=== PATIENT | female | born 1950 | race Caucasian/White ===

== ENCOUNTER 2023-10-28 12:17 | Outpatient (OUT) | payer MEDICARE, OTHER, SELFPAY ==
--- NOTE | 2023-10-28 14:06 | P.CN_ITS ---
Consult Note: HPI Data of Consult Patient: new to practice Consult date: 10/28/23 Requesting Physician: Ru Ferrera MD Primary Care Provider: PARRIS ROMAN Consult Narrative Reason for consult: neck pain, bilateral arm weakness, low back pain, right leg pain Narrative: 72yof who presents for evaluation. longstanding neck, bilateral arm, low back, leg symptoms. history of cervical and lumbar surgeries. no recent advanced imaging of cervical spine. lumbar spine mri from 2+ years ago shows multilevel stenosis throughout lumbar spine. has engaged in a series of provider directed home exercises for >6 weeks, without any lasting benefit. medications currently controlled by hospice team - uses tizanidine, morphine 15mg bid, percocet 10mg q4h. she and family state that she is often quite lethargic. hx of copd, on home oxygen. cc:: CC: Ru Ferrera MD Review of Systems ROS Status of ROS 10 or more systems reviewed and unremark able except as noted in history and below Meds Home Medications and Allergies Home Medications ?Medication ?Instructions ?Recorded ?Confirmed ?Type buprenorphine 5 mcg/hour weekly 1 patch transdermal Q7D #4 ea 10/28/23 Rx transdermal patch (Butrans) Exam Narrative Exam Narrative: Psych-alert and oriented x 3.? Attentive and appropriate, constitutionally normal, displays normal mood and affect per situation.? There are no obvious deficits in memory, reasoning, or intellect.? Skin-no obvious rashes, bruising, or erythema noted to the patient's area of pain.? Extremities-upper extremities are warm with minimal edema and palpable pulses. Cervical- tenderness to palpation noted in the cervical spine and paraspinal musculature.? Pain is elicited with flexion, extension, and lateral rotation of the cervical spine.? Range of motion is diminished due to pain. Facet loading maneuvers are positive.? Strength-unremarkable and within normal limits with the exception to the bilateral biceps. Sensory-no notable sensory deficits in the bilateral upper extremities to touch or pinprick with the exception to decreased sensation to the bilateral C4, 5, 6 dermatomal distribution.? Lumbar-tenderness to palpation noted in the lumbar spine and paraspinal musculature. Pain is elicited with flexion, extension, and lateral rotation of the lumbar spine. Range of motion is diminished with these motions. Facet loading maneuvers are positive. Strength-noted to be unremarkable with the exception of decreased strength rated at 4 out of 5 in right quadriceps femoris, anterior tibialis. Sensory-no notable sensory deficits in the bilateral lower extremities to touch or pinprick in all dermatomal distributions with the exception to decreased sensation to the right L4, 5 dermatomal distribution Coordination remains intact.? Gait remains non-antalgic. Assessment and Plan Assessment and Plan (1) Lumbar stenosis with neurogenic claudication: (2) Lumbar postlaminectomy syndrome: (3) Cervical stenosis of spinal canal: (4) Cervical postlaminectomy syndrome: Plan 72yof who presents for evaluation. failed conservative measures, as noted. imaging reviewed, as noted. given longstanding symptoms and history, would like her to undergo cervical and lumbar mri without contrast. she is in agreement. medications reviewed. lengthy discussion about options and desire to wean off opioids as much as possible, given comorbidities and drowsiness. at this point, will have her trail butrans patch 5mcg/hr. discussed that she could start we aning 1/2 tablet per day and assess how she feels after a week. if continues to feel ok, would wean by another 1/2 tablet per week. she expressed understanding. follow up after mri.
== END 2023-10-28 12:18 | disposition home or self-care (01) ==
PROVIDERS: PCP Family Medicine; Visit Provider Anesthesiology
DX: M48.062 Spinal stenosis, lumbar region with neurogenic claudication (principal); M96.1 Postlaminectomy syndrome, not elsewhere classified; M48.02 Spinal stenosis, cervical region
CPT/HCPCS: G0463

== ENCOUNTER 2023-11-01 08:31 | Outpatient (OUT) | payer MEDICARE, OTHER, SELFPAY ==
--- NOTE | 2023-11-01 08:33 | MR_ITS ---
[place] [id number] Patient Name: ATTILA PACHECO MRN: [facility]:[id number] date: 1950 Sex: F Assigned Patient Location: MRI Current Patient Location: Accession/Order Number: [id number] Exam Date: 11/01/2023 08:53 Report Date: 11/04/2023 10:09 At the request of: MAURICIO SINCLAIR Procedure: MR cervical spine wo con EXAMINATION: MR cervical spine wo con HISTORY: Cervical Stenosis ; chronic cervical pain, bilateral arm weakness COMPARISON: No relevant comparison available. TECHNIQUE: A variety of imaging planes and parameters were utilized for visualization of suspected pathology without and/or with intravenous Dotarem contrast based on examination type. FINDINGS: CRANIOCERVICAL AREA: Normal foramen magnum with no Chiari malformation. PARASPINAL AREA: Normal with no visible mass. BONES: Anterior mechanical fusion C4-5-6 vertebral. Small spinous process versus resection at these levels. Mild grade 1 anterolisthesis of C6 on C7. CORD: Cord compression at several levels. No abnormal signal within the cord. CERVICAL DISC LEVELS: C2-C3: Moderate degenerative disc disease is present without visible neural impingement. C3-C4: Moderate-marked central canal and moderate bilateral foraminal narrowing. Prominent posterior disc bulging and moderate disc height reduction. Mild degenerative facet arthropathy. C4-C5: Marked central canal narrowing posterior to C4 with flattening of the spinal cord to 5 mm. Moderate foramen narrowing bilaterally. Mechanical fusion of vertebral bodies and near complete loss of disc space. C5-C6: Mild central canal and bilateral foramen narrowing. Mechanical fusion of vertebral bodies. Intervertebral disc spacer. C6-C7: Mild central canal and moderate bilateral foramen narrowing. Grade 1 anterolisthesis of C6 on 7 with moderate disc space narrowing and mild degenerative facet arthropathy bilaterally. C7-T1:. No significant central canal narrowing. Moderate right foramen narrowing. Minimal degenerative disc disease. Moderate degenerative facet arthropathy. MR/MR cervical spine wo con IMPRESSION: 1. Mechanical fusion and suspected anterior vertebral disc spacers at C4-5-6. 2. Grade 1 anterolisthesis of C6 on 7. 3. Multilevel central canal and foraminal narrowing as detailed above. 4. No prior studies or reports for comparison. Electronically authenticated by: STANLEY ALONZO Date: 11/04/2023 10:09
--- NOTE | 2023-11-01 08:33 | MR_ITS ---
[facility] [place] [id number] Patient Name: ATTILA APCHECO MRN: [facility]:[id number] date: 1950 Sex: F Assigned Patient Location: MRI Current Patient Location: MRI Accession/Order Number: [id number] Exam Date: 11/01/2023 08:53 Report Date: 11/04/2023 10:48 At the request of: MAURICIO SINCLAIR Procedure: MR lumbar spine wo con EXAMINATION: MR lumbar spine wo con HISTORY: Lumbar Stenosis COMPARISON: MRI L-spine 09/28/2021 TECHNIQUE: A variety of imaging planes and parameters were utilized for visualization of suspected pathology. FINDINGS: For the purposes of numbering, sagittal T2 image # 8 extends from the T9-10 vertebral body superiorly to the S2-3 level inferiorly. PARASPINAL AREA: Normal with no visible mass. BONES: [For right laminectomy is suspected. CORD/CAUDA EQUINA: Normal caliber, contour, and signal intensity. DISC LEVELS: 12-L1: Early degenerative disc disease is present without focal protrusion or neural impingement. L1-L2: Mild central canal and bilateral foramen narrowing. Mild diffuse disc bulging and moderate disc height reduction. L2-L3: Moderate central canal and mild bilateral foramen narrowing. Moderate diffuse disc bulging with mild disc at reduction. Mild degenerative facet arthropathy, right greater than left. L3-L4: Mild central canal and right neural foramen narrowing. Moderate left foramen narrowing. Mild diffuse disc bulging without disc at reduction. Mild degenerative facet arthropathy. L4-L5: Moderate right foramen narrowing without significant central canal or left foramen narrowing. Mild diffuse disc bulging without disc at reduction. Moderate degenerative facet arthropathy bilaterally. Suspect right laminectomy. L5-S1: Early degenerative disc disease is present without focal protrusion or neural impingement. MR/MR lumbar spine wo con IMPRESSION: 1. Multilevel mild-moderate degenerative changes, most notable at L2-3 and L3-4; stable to minimally progressed. Electronically authenticated by: STANLEY ALONZO Date: 11/04/2023 10:48
== END 2023-11-01 08:32 | disposition home or self-care (01) ==
LOC: MRI 08:31
PROVIDERS: PCP Family Medicine; Visit Provider Anesthesiology
DX: M48.02 Spinal stenosis, cervical region (principal); M48.062 Spinal stenosis, lumbar region with neurogenic claudication; M51.36 Other intervertebral disc degeneration, lumbar region; M43.22 Fusion of spine, cervical region
CPT/HCPCS: 72141; 72148

== ENCOUNTER 2023-11-04 12:22 | Outpatient (OUT) | payer MEDICARE, OTHER, SELFPAY ==
--- NOTE | 2023-11-04 13:22 | PM.CN ---
Consult Note: HPI Data of Consult Patient: known to practice within the last 3 years Consult date: 11/04/23 Requesting Physician: Ru Ferrera MD Primary Care Provider: PARRIS ROMAN Consult Narrative Reason for consult: neck, bilateral arm, low back, bilateral leg pain Narrative: 73yof who presents for assessment. persistent low back, leg, neck, bilateral arm pain. imaging reviewed. cervical mri with severe stenosis and compression at several levels, worst at c4-5. lumbar mri with more moderate degnerative changes, from l2 to l5. multiple levels of stenosis seen throughout lumbar spine. has continued in a provider directed home exercise program >6 weeks, without benefit. continues with percocet, morphine, has not started butrans. cc:: CC: Ru Ferrera MD Review of Systems ROS Status of ROS 10 or more systems reviewed and unremarkable except as noted in history and below [facility] Medical History (Updated 10/28/23 @ 15:19 by Marivel Ramirez RN) Cervical vertebral fusion ?M43.22 - Fusion of spine, cervical region (ICD-10) COPD (chronic obstructive pulmonary disease) ?J44.9 - Chronic obstructive pulmonary disease, unspecified (ICD-10) Stroke ?I63.9 - Cerebral infarction, unspecified (ICD-10) Vertigo ?R42 - Dizziness and giddiness (ICD-10) Surgical History History of lumbar surgery ?Z98.890 - Other specified postprocedural states (ICD-10) History of bladder suspension procedure ?Z98.890 - Other specified postprocedural states (ICD-10) ?Z87.448 - Personal history of other diseases of urinary system (ICD-10) H/O dilation of urethra ?Z98.890 - Other specified postprocedural states (ICD-10) History of colonoscopy ?Z98.890 - Other specified postprocedural states (ICD-10) History of laparoscopy ?Z98.890 - Other specified postprocedural states (ICD-10) History of cardiac cath ?Z98.890 - Other specified postprocedural states (ICD-10) History of hand surgery ?Z98.890 - Other specified postprocedural states (ICD-10) H/O oophorectomy History of hysterectomy ?Z90.710 - Acquired absence of both cervix and uterus (ICD-10) Hx of cholecystectomy ?Z90.49 - Acquired absence of other specified parts of digestive tract (ICD-10) Meds Home Medications and Allergies Home Medications ?Medication ?Instructions ?Recorded ?Confirmed ?Type albuterol sulfate 90 mcg/actuation 2 inh inhalation Q8H PRN shortness 10/28/23 10/28/23 History aerosol inhaler of breath or wheezing aripiprazole 5 mg tablet (Abilify) 5 mg PO DAILY 10/28/23 10/28/23 History buprenorphine 5 mcg/hour weekly 1 patch transdermal Q7D #4 ea 10/28/23 Rx transdermal patch (Butrans) cholecalciferol (vitamin D3) 50 10,000 unit PO DAILY 10/28/23 10/28/23 History mcg (2,000 unit) tablet (Vitamin D3) clopidogrel 75 mg tablet (Plavix) 75 mg PO DAILY 10/28/23 10/28/23 History fenofibrate micronized 134 mg 134 mg PO DAILY 10/28/23 10/28/23 History capsule fluoxetine 40 mg capsule (Prozac) 40 mg PO DAILY 10/28/23 10/28/23 History fluticasone furoate 100 1 inh inhalation DAILY 10/28/23 10/28/23 History mcg-vilanterol 25 mcg/dose inhalation powder (Breo Ellipta) ipratropium 18 mcg-albuterol 103 1 spray inhalation PRN shortness 10/28/23 History mcg/actuation aerosol inhaler of breath morphine 15 mg tablet,extended 15 mg PO Q12H 10/28/23 10/28/23 History release (MS Contin) multivitamin-ferrous 1 tab PO DAILY 10/28/23 10/28/23 History fumarate-folic acid 18 mg-400 mcg tablet (Centrum Women) omeprazole 20 mg capsule,delayed 20 mg PO DAILY 10/28/23 10/28/23 History release oxycodone-acetaminophen 10 mg-325 1 tab PO Q4H 10/28/23 10/28/23 History mg tablet (Percocet) raloxifene 60 mg tablet (Evista) 60 mg PO DAILY 10/28/23 10/28/23 History sennosides 8.6 mg tablet (Senokot) 8.6 mg PO DAILY 10/28/23 10/28/23 History simvastatin 40 mg tablet 40 mg PO DAILY 10/28/23 10/28/23 History tizanidine 2 mg capsule 2 mg PO BID PRN muscle spasticity 10/28/23 10/28/23 History Allergies Allergy/AdvReac Type Severity Reaction Status Date / Time No Known Drug Allergies Allergy Verified 10/28/23 14:56 Exam Narrative Exam Narrative: Psych-alert and oriented x 3.? Attentive and appropriate, constitutionally normal, displays normal mood and affect per situation.? There are no obvious deficits in memory, reasoning, or intellect.? Skin-no obvious rashes, bruising, or erythema noted to the patient's area of pain.? Extremities-upper extremities are warm with minimal edema and palpable pulses. Cervical- tenderness to palpation noted in the cervical spine and paraspinal musculature.? Pain is elicited with flexion, extension, and lateral rotation of the cervical spine.? Range of motion is diminished due to pain. Facet loading maneuvers are positive. Strength-unremarkable and within normal limits with the exception to the bilateral biceps, triceps. Sensory-no notable sensory deficits in the bilateral upper extremities to touch or pinprick with the exception to decreased sensation to the bilateral c4, 5, 6 dermatomal distribution.? Lumbar-tenderness to palpation noted in the lumbar spine and paraspinal musculature. Pain is not elicited with flexion, extension, and lateral rotation of the lumbar spine. Range of motion is not diminished with these motions. Facet loading maneuvers are negative.? Strength-noted to be unremarkable with the exception of decreased strength rated at 4 out of 5 in bilateral quadriceps femoris, anterior tibialis. Sensory-no notable sensory deficits in the bilateral lower extremities to touch or pinprick in all dermatomal distributions with the exception to decreased sensation to the bilateral L4, 5 dermatomal distribution Coordination remains intact.? Gait remains non-antalgic.? Assessment and Plan Assessment and Plan (1) Cervical postlaminectomy syndrome: (2) Cervical stenosis of spinal canal: (3) Lumbar postlaminectomy syndrome: (4) Lumbar stenosis with neurogenic claudication: Plan 73yof who presents for assessment. failed conservative measures, as noted. imaging reviewed, as noted. given symptoms and imaging, prudent to attempt bilateral c4-5 tfesi under fluoroscopic guidance. will utilize ivcs given extreme anxiety. for low back and leg symptoms, will attempt bilateral l3-4 tfesi under fluoroscopic guidance. will utilize ivcs given extreme anxiety. she is in agreement. meds reviewed. had extensive conversation about butrans. she will try this and scale back 1/2 tablet percocet. prescribed narcan. uds reviewed. also refilled morphine 15mg bid. follow up after procedure.
== END 2023-11-04 12:23 | disposition home or self-care (01) ==
PROVIDERS: PCP Family Medicine; Visit Provider Anesthesiology
DX: M96.1 Postlaminectomy syndrome, not elsewhere classified (principal); M48.02 Spinal stenosis, cervical region; M48.062 Spinal stenosis, lumbar region with neurogenic claudication
CPT/HCPCS: G0463

== ENCOUNTER 2023-11-18 08:28 | Day surgery (SDC) | payer MEDICARE, OTHER, SELFPAY ==
[2023-11-18 08:58] VITALS: BP 161/85; PULSE 93; TEMP 36.2; O2SAT 95
[2023-11-18] MEDS: 0.9 % SODIUM CHLORIDE 500 ML IV (09:11)
[2023-11-18] MEDS: BUPIVACAINE HCL 0.25% PF 25 MG/10 ML VIAL INJ (09:43)
[2023-11-18] MEDS: DEXAMETHASONE SOD PHOS 10 MG/ML VIAL INJ (09:44)
[2023-11-18] MEDS: LIDOCAINE HCL 2% 400 MG/20 ML MDV 5 ML INJ (09:44)
[2023-11-18] MEDS: IOHEXOL 240 MG/ML - 10 ML VIAL INJ (09:44)
--- NOTE | 2023-11-18 09:48 | W.PM.PROCNOT ---
Date of procedure: 11/18/23 Pre-op diagnosis: Pain due to cervical radiculopathy Post-op diagnosis: same as pre-op Procedure: Procedure: Bilateral C4-5 transforaminal epidural steroid injection Medications: Bupivacaine 0.25% 1cc, lidocaine 2% 1cc, dexamethasone 10mg The patient was seen and examined in the preoperative holding area.? Informed consent was obtained and placed on the chart.? Patient was brought to the medical procedure unit and placed in the prone position where a timeout was completed verifying the correct patient, procedure site, position, and planned special equipment using sterile aseptic technique.? Under direct fluoroscopic visualization a 25-gauge Quincke tipped spinal needle was advanced at level left C4-5 to the designated neural foramen where contrast dye was injected to show adequate spread.? There was no evidence of vascular or adverse uptake.? Epidural spread was appreciated.? The above-mentioned injectate was then placed in a 1.5 mL aliquot preceded by negative aspiration.? The needle was removed. The same procedure, at the same level, was completed on the opposite side. ? Patient was taken to the postprocedural recovery area and monitored for an appropriate length of time before found suitable for discharge in the accompaniment of a responsible adult. Anesthesia: MAC Surgeon: Ru Ferrera Pathology: none sent Condition: stable Disposition: no change
[2023-11-18 09:49] VITALS: BP 125/91; PULSE 78; TEMP 36.2; O2SAT 100
[2023-11-18 10:01] VITALS: BP 119/67; PULSE 77; O2SAT 99
== END 2023-11-18 10:20 | disposition home or self-care (01) ==
PROVIDERS: PCP Family Medicine; Visit Provider Anesthesiology
DX: M54.12 Radiculopathy, cervical region (principal)
CPT/HCPCS: 64479; J0665; J1100; J2704; Q9966

== ENCOUNTER 2023-12-02 07:25 | Day surgery (SDC) | payer MEDICARE, OTHER, SELFPAY ==
--- OUTSIDE RECORDS SUMMARY | 2023-12-02 07:37 | XMS_ITS | CCD ---
Author Organization [facility] Team Providers Care Merchandise Flow Team Leader Name Role Phone REQUEST, NONE LISTED Admitting Unavailable REQUEST, NONE LISTED Attending Unavailable REQUEST, NONE LISTED Consulting Unavailable REQUEST, NONE LISTED Attending Unavailable REQUEST, NONE LISTED Consulting Unavailable REQUEST, NONE LISTED Admitting Unavailable THOMASPARRIS ANN Admitting Unavailable ALTAGRACIA VARGAS V Consulting Unavailable THOMASPARRIS Attending Unavailable THOMASPARRIS ANN Consulting Unavailable Thomas, Parris Unavailable ThomasDO Parris ann. Primary Care Provider DO Parris Guzman. Attending Provider [phone] DO Sangeetha Mares Attending Provider [phone] ThomasDO Parris ann. Primary Care Provider DO Parris Guzman. Attending Provider PARRIS GUZMAN Primary Care Physician Jovana Armstrong Unavailable Unavailable Charlotte SMITH Unavailable Chaparro Heck Unavailable Zuleyka Ross Unavailable MD Cheko Rolon Jr Emergency Provider ThomasDO Parris ann. Primary Care Provider CYNDY Juarez Emergency Provider DO Parris Guzman Attending Provider Dr. Gaston Alvarez II Attending Unavailable Thomas, Dr. Parris Hensley Referring Unavaila ble DO Parris Guzman Primary Care Provider CYNDY Fernandez Attending Provider [phone] Albert RODAS Admitting Unavailable ChristianaCarisaah Micheal Attending Unavailable [facility] Cardio, XXXX Consulting Unavailable Kirnus, Reid D Consulting Unavailable Kirnus, Reid D Consulting Unavailable Kirnus, Reid D Consulting Unavailable Albert RODAS Attending Unavailable Gaston Horton Attending Unavailable Kirnus, Reid D Consulting Unavailable Gaston Horton Admitting Unavailable Kirnus, Reid D Consulting Unavailable Kirnus, Reid D Consulting Unavailable Thomas, DO Parris MMichael Primary Care Provider Thomas, DO Parris MMichael Attending Provider Michaela Fernandez Admitting Unavailable Michaela Fernandez Attending Unavailable Thomas, Parris M. Primary Care Unavailable Thomas, Parris M. Primary Care Unavailable Thomas, Parris M. Attending Unavailable Thomas, Parris MMichael Admitting Unavailable Thomas, Parris M. Primary Care Unavailable Cheko Rolon Jr Admitting Unavailable Cheko Rolon Jr Attending Unavailable Saffle, Jennyfer N Admitting Unavailable Saffle, Jennyfer N Attending Unavailable Thomas, Parris M. Primary Care Unavailable Thomas, Parris M. Primary Care Unavailable Thomas, Parris MMichael Attending Unavailable Thomas, Parris MMichael Admitting Unavailable THOMAS, PARRIS HENSLEY Primary Care Unavailable Thomsa DO, Parrisnick Hensley Primary Care Provider [phone] Thomas Parris HENDRIX Unavailable [phone] THOMAS, PARRIS HENSLEY Primary Care Unavailable MARA MONROY Attending Unavailable KIM HARRIS Referring Unavailable Gaston Horton Admitting Unavailable Rizwannus, Reid D Consulting Unavailable Gaston Horton Attending Unavailable Kirnus, Reid D Consulting Unavailable Kirnus, Reid D Consulting Unavailable NATALEE PEÑALOZA Attending Unavailable NATALEE PEÑALOZA Admitting Unavailable Maisha MORFIN, Ru Man Attending Unavailable Maisha MORFIN, Ru Man Attending Unavailable MARLY, QUINTONTILAL Admitting Unavailable MARLY, JAYANTILAL Attending Unavailable Kodi Hong Attending Unavailable Tariq ALCALA Admitting Unavailable Francisco Dill Consulting Unavailable Francisco Dill Consulting Unavailable Francisco Dill Consulting Unavailable Yosvany Villeda Attending Unavailable PARRIS GUZMAN Admitting Unavailable PARRIS GUZMAN Attending Unavailable PARRIS GUZMAN Referring Unavailable Allergies Allergy Classification Reported Allergen(s) Allergy Type Date of Onset Reaction(s) Facility (20 sources) Budesonide / formoterol Drug Allergy [facility] [place] [facility] Other (1 source) Budesonide Drug Allergy 09-04-2023 [facility] (1 source) formoterol Drug Allergy 09-04-2023 [facility] Medications Current Medications Medication Drug Class(es) Dates Sig (Normalized) Sig (Original) albuterol 0.83 mg/ml inhalation solution (20 sources) beta2-Adrenergic Agonist Start: 08-15-2022 take 3 mL by inhalation every four hours albuterol 0.083% Inh Kaylee 3 mL 0.083% - 3mL dosing units, Inhalation, q4hr, Refill(s) 0 Start Date: 08/15/22 Status: Ordered Start: 08-15-2022 take 2.5 mg by inhal ation four times daily Albuterol Sulfate Active 2.5 MG INHALATION Four times daily June 20, 2023 12:00am Start: 11-08-2021 End: 08-12-2023 take 0.83 mg by inhalation four times daily Albuterol Sulfate Discontinued 0.83 MG INHALATION Four times daily November 08, 2021 12:00am August 12, 2023 9:20am Start: 11-08-2021 take 0.63 mg by inha lation four times daily Albuterol Sulfate Active 0.63 MG INHALATION Four times daily November 08, 2021 12:00am 120 actuat albuterol 0.1 mg/actuat / ipratropium bromide 0.02 mg/actuat inhalation spray (20 sources) Anticholinergic, beta2-Adrenergic Agonist Start: 06-14-2017 ipratropium 20 mcg-albuterol 100 mcg (COMBIVENT RESPIMAT) 20-100 mcg/actuation inhaler four times daily. 0 06/14/2017 Active Start: 06-14-2017 take 20-100 ug by in halation four times daily Ipratropium-Albuterol (Combivent Respimat) 20-100 mcg/actuation Mist Active 1 PUFF INHALATION Four times daily June 14, 2017 1:00am Albuterol Sulfate (2.5 MG/ 3 ML) 2.5 MG/3ML 0.083% Nebulization Solution (20 sources) Start: 02-24-2019 Albuterol Sulf ate (2.5 MG/ 3 ML) 2.5 MG/3ML 0.083% Nebulization Solution 3ml Inhalation 4 times a day for 90 days [id number] Feb, Active Start: 02-24-2019 Albuterol Sulf ate (2.5 MG/ 3 ML) 2.5 MG/3ML 0.083% Nebulization Solution 3ml Inhalation 4 times a day for 90 days Feb, Active Start: 02-24-2019 Albuterol Sulf ate (2.5 MG/ 3 ML) 2.5 MG/3ML 0.083% Nebulization Solution 3ml Inhalation 4 times a day for 90 day(s) Feb, Active Start: 02-24-2019 Start: 02-24-2019 Albuterol Sulf ate (2.5 MG/ 3 ML) 2.5 MG/3ML 0.083% Nebulization Solution 3ml Inhalation 4 times a day for 10 days Feb, Active ALPRAZolam 0.25 mg oral tablet (20 sources) Benzodiazepine Start: 11-07-2023 take 1 tablet by mouth twice daily Alprazolam (Xanax) 0.25 mg tablet Active 0.25 MG PO Twice daily 19 10November 07, 2023 1:34pm Start: 09-04-2022 take 1 tablet by chito th three times daily as needed Xanax 0.25 MG 1 tab(s) Orally three times a day as needed for 30 days August, Active Start: 07-27-2009 End: 08-12-2023 take 1 tablet by mouth twice daily Alprazolam (Xanax) 0.25 mg Tablet Discontinued 0.25 MG PO Twice daily June 11, 2017 1:00am August 12, 2023 9:20am baclofen suppository 10 mg (CPD) (2 sources) Start: 09-12-2023 End: 05-09-2024 take 5 mg vaginal route every twelve hours as needed baclofen suppository 10 mg (CPD) Uwrap and insert a half of a suppository vaginally as directed twice daily as needed. 60 Suppository 3 09/12/2023 05/09/2024 Active Start: 09-12-2023 End: 05-09-2024 take 5 mg vaginal route every twelve hours as needed baclofen suppository 10 mg (CPD) Use 0.5 Suppositories vaginally two times a day as needed. Unwrap and insert one suppository as directed. 60 Suppository 3 09/12/2023 05/09/2024 Active benzonatate 200 mg oral capsule (2 sources) Non-narcotic Antitussive Start: 09-30-2023 take 200 mg by mouth three times daily Benzonatate Active 200 MG PO Three times daily 26 10September 30, 2023 12:00am Start: 08-18-2022 End: 08-25-2022 take 2 capsules by mouth three times daily as needed for cough benzonatate 100 mg Cap 200 mg = 2 cap(s), Oral, TID, PRN Cough, X 7 day(s), # 42 cap(s), Refills(s) 0, Pharmacy: [facility], 157, cm, 08/15/22 11:44:00 EDT, Height/Length Dosing, 78, kg, 08/15/22 11:44:00 EDT, Weight Dosing Start Date: 08/18/22 Stop Date: 08/25/22 Status: Ordered 168 hr buprenorphine 0.005 mg/hr transdermal system (1 source) Partial Opioid Agonist Start: 11-15-2023 apply 5 ug transdermal route every week Buprenorphine (Butrans) 5 mcg/hour patch weekly Active 1 PATCH TRANSDERML Q7D November 15, 2023 12:00am calcium phosphate dibas/vit D3 (VITAMIN D, WITH CALCIUM, ORAL) (2 sources) calcium phosphat e dibas/vit D3 (VITAMIN D, WITH CALCIUM, ORAL) Take by mouth. 0 Active Centrum MultiGummies (20 sources) Centrum MultiGummies once daily Active Centrum MultiGum mies Active cephalexin 500 mg oral capsule (3 sources) Cephalosporin Antibacterial Start: 08-27-2023 take 1 capsule by mouth twice daily Keflex 500 mg Cap 500 mg = 1 cap(s), Oral, BID, # 7 cap(s), Refills(s) 0, Pharmacy: [facility], 157.5, cm, 08/26/23 4:01:00 EDT, Height/Length Dosing, 83, kg, 08/26/23 4:01:00 EDT, Weight Dosing Start Date: 08/27/23 Status: Ordered Combivent Respimat (9 sources) Start: 11-11-2018 take 1 puff(s) by inhalation four times daily Combivent Respimat 1 puff(s), Inhalation, QID Shortness of breath or wheezing, Refill(s) 0 Start Date: 11/11/18 Status: Ordered Start: 11-11-2018 Combivent Resp imat 1 puff(s), Inhalation, Refill(s) 0 Start Date: 11/11/18 Status: Ordered Ergocalciferol (20 sources) Provitamin D2 Compound Start: 10-16-2023 take 1 capsule by mouth every week Ergocalciferol (Vitamin D2) Active 0 .ROUTE .COMPLEX October 16, 2023 1:56pm TAKE 1 CAPSULE BY MOUTH ONCE WEEKLY ON SATURDAY Start: 10-07-2023 End: 10-16-2023 take 1 capsule by mouth every week Ergocalciferol (Vitamin D2) Discontinued 0 .ROUTE .COMPLEX October 07, 2023 12:34pm October 16, 2023 1:57pm TAKE 1 CAPSULE BY MOUTH ONCE WEEKLY ON SATURDAY Start: 07-16-2023 End: 10-07-2023 take 1 capsule by mouth every week Ergocalciferol (Vitamin D2) Discontinued 0 .ROUTE .COMPLEX July 16, 2023 2:47pm October 07, 2023 12:34pm TAKE 1 CAPSULE BY MOUTH ONCE WEEKLY ON SATURDAY Start: 07-16-2023 take 1 capsule by mo uth every week Ergocalciferol (Vitamin D2) Active 0 .ROUTE .COMPLEX July 16, 2023 2:47pm TAKE 1 CAPSULE BY MOUTH ONCE WEEKLY ON SATURDAY Start: 06-11-2017 End: 07-16-2023 take 1 capsule by mouth every week Ergocalciferol (Vitamin D2) (Vitamin D2) 50,000 unit Capsule Discontinued 13945 UNIT PO every week June 11, 2017 1:00am July 16, 2023 2:47pm takes on Saturday take 1 capsule by [facility] every week Vitamin D (Ergocalciferol) 83979 UNIT 1 capsule Orally once a week on Saturday for 90 day(s) Active FLUoxetine 40 mg oral capsule (20 sources) Serotonin Reuptake Inhibitor Start: 01-11-2010 End: 10-08-2023 take 1 capsule by mouth once daily Fluoxetine (Prozac) 40 mg capsule Active 40 MG PO Daily 90 October 08, 2023 9:26am 30 actuat fluticasone furoate 0.1 mg/actuat / vilanterol 0.025 mg/actuat dry powder inhaler (20 sources) Corticosteroid, beta2-Adrenergic Agonist Start: 04-11-2023 End: 08-26-2023 Fluticasone Furoate-Vilanterol Active 1 INH INHALATION Daily August 26, 2023 11:37am Start: 08-22-2022 take 1 puff(s) by in halation once daily Fluticasone Furoate-Vilanterol 100-25 MCG/ACT 1 puff Inhalation Once a day for 90 days August, Active Start: 08-22-2022 take 1 puff(s) by in halation once daily Fluticasone Furoate-Vilanterol 100-25 MCG/ACT 1 puff Inhalation Once a day for 90 days August, Active Start: 08-18-2022 take 1 puff(s) by in halation once daily Breo Ellipta 100 mcg-25 mcg inhalation powder 1 puff(s), Inhalation, Daily, 28 blister(s), Refill(s) 2, 30 dose unit, [facility], 157, cm, 08/15/22 11:44:00 EDT, Height/Length Dosing, 78, kg, 08/15/22 11:44:00 EDT, Weight Dosing Start Date: 08/18/22 Status: Ordered homatropine methylbromide 0.3 mg/ml / HYDROcodone bitartrate 1 mg/ml oral solution (3 sources) Opioid Agonist, Cholinergic Muscarinic Agonist Start: 11-13-2021 HYDROcodone Bit-Homatrop MBr 5-1.5 MG/5ML 5 mL as needed Orally every 6 hrs for 7 days Nov, Active Multivit With Min-Folic Acid (Centrum Multigummies) 80 mcg Tablet,Chewable (10 sources) Start: 04-11-2023 take 1 tablet by mouth once daily Multivit With Min-Folic Acid (Centrum Multigummies) 80 mcg Tablet,Chewable Active 1 TAB PO Daily April 11, 2023 1:00am multivit-minerals/fo lic acid (CENTRUM ADULT 50 PLUS ORAL) (2 sources) multivit-mineral s/ folic acid (CENTRUM ADULT 50 PLUS ORAL) oxygen as ordered (20 sources) oxygen as ordere d 4 Liters continuous Active oxygen as ordere d 4 LPM continuous Active oxygen as ordere d 3 liters continuous Active oxygen as ordere d 2 liters via nasal cannula prn at night Active oxygen as ordere d 2 liters via nasal cannula prn Not-Taking oxygen as ordere d 2 liters via nasal cannula prn Active predniSONE 20 mg oral tablet (20 sources) Start: 09-23-2023 Prednisone Act alison 0 PO Daily 18 September 23, 2023 12:00am 3 tabs x 3 days, 2 tabs x 3 days, 1 tab x 3 days Start: 08-12-2023 End: 09-04-2023 Prednisone Discontinued 0 PO daily 31 03August 12, 2023 12:00am September 04, 2023 8:51am 3 p.o. daily x 4 days, 2 p.o. daily x 4 days, 1 p.o. daily x 4 days -with food Start: 07-12-2023 End: 08-12-2023 take 2 tablets by mouth once daily, then take 1 tablet by mouth once daily Prednisone Discontinued 0 PO As Directed 10 July 12, 2023 12:00am August 12, 2023 9:21am 2 tabs daily for 3 days, then 1 tab daily for 4 days orally as directed; see taper instructions Start: 06-11-2023 End: 06-20-2023 take 2 tablets by mouth once daily, then take 1 tablet by mouth once daily, then take 0.5 tablet by mouth once daily Prednisone Discontinued 10 MG PO As Directed June 11, 2023 1:00am June 20, 2023 10:12am 2 tabs day 1 & 2, 1 tab daily x 2 days, 1/2 tab daily x 2 days Start: 11-29-2022 predniSONE 10 mg Tab = 1 -, Oral, As Directed, Take 3 tabs by mouth daily x3 days, then 2 tabs daily x3 days, then 1 tab daily x3 days., # 18 tab(s), Refills(s) 0, Pharmacy: [facility], 158, cm, 11/25/22 14:58:00 EDT, Height/Length Dosing, 82.6, kg, 11/25/22 14... Start Date: 11/29/22 Status: Ordered Start: 08-18-2022 predniSONE 10 mg Tab = 1 -, Oral, As Directed, Take 3 tabs by mouth daily x3 days, then 2 tabs daily x3 days, then 1 tab daily x3 days., # 18 tab(s), Refills(s) 0, Pharmacy: [facility], 157, cm, 08/15/22 11:44:00 EDT, Height/Length Dosing, 78, kg, 08/15/22 11:4... Start Date: 08/18/22 Status: Ordered Start: 11-13-2021 take 3 tablets by [facility] every twenty-four hours predniSONE 20 MG 3 tablet with food Orally Once a day for 5 days Nov, Active raloxifene hydrochloride 60 mg oral tablet (20 sources) Estrogen Agonist/Antagonist Start: 08-27-2023 take 60 mg by mouth once daily Raloxifene Active 60 MG PO Daily August 27, 2023 12:37pm Start: 07-16-2023 End: 08-27-2023 take 1 tablet by mouth once daily Raloxifene Discontinued 0 .ROUTE .COMPLEX August 22, 2023 9:03am August 27, 2023 12:39pm TAKE 1 TABLET BY MOUTH DAILY Start: 07-07-2011 End: 07-16-2023 take 1 tablet by mouth once daily Raloxifene (Evista) 60 mg Tablet Discontinued 60 MG PO Daily June 11, 2017 1:00am July 16, 2023 2:47pm Senna Leaves (3 sources) Start: 08-26-2023 Senna 8.6 mg o ral tablet 17.2 mg, 2 tab(s), Oral, Once a day (at bedtime), 100 tab(s), Refill(s) 0 Start Date: 08/26/23 Status: Ordered Sennosides (Senna) 8.6 mg capsule (20 sources) Start: 05-27-2023 take 2 capsules by mouth once daily at bedtime Sennosides (Senna) 8.6 mg capsule Active 17.2 MG PO Daily at bedtime 60 May 27, 2023 4:46pm Start: 05-27-2023 End: 05-27-2023 take 2 capsules by mouth once daily at bedtime Sennosides (Senna) 8.6 mg capsule Discontinued 17.2 MG PO Daily at bedtime 60 May 27, 2023 3:08pm May 27, 2023 4:47pm sennosides, [facility] 8.6 mg oral tablet (20 sources) Start: 01-21-2023 take 2 tablets by mo [facility] every twenty-four hours Senna Laxative 8.6 MG 2 tablets at bedtime as needed Orally Once a day for 30 days Jan, Active SENNA 8.6 mg tab tiZANidine 2 mg oral tablet (20 sources) Central alpha-2 Adrenergic Agonist Start: 08-26-2023 take 1 tablet by mouth every eight hours as needed for muscle spasms tiZANidine 2 mg Tab 2 mg = 1 tab(s), Oral, q8hr, PRN Spasm, Refills(s) 0 Start Date: 08/26/23 Status: Ordered Start: 07-12-2023 End: 09-18-2023 take 2 mg by mouth twice daily Tizanidine Discontinued 2 MG PO Twice daily 60 July 12, 2023 11:44am September 18, 2023 4:48pm Start: 06-11-2023 End: 07-12-2023 take 2 mg by mouth every eight hours Tizanidine Discontinued 2 MG PO Every 8 hours June 11, 2023 1:00am July 12, 2023 11:32am Start: 12-01-2019 Zanaflex Refil ls(s) 0 Start Date: 12/01/19 Status: Ordered Start: 07-15-2019 take 1 tablet by chito every eight hours Zanaflex 4 MG 1 tablet as needed Orally Three times a day for 30 days Jul, Active traMADol hydrochloride 100 mg oral tablet (7 sources) Opioid Agonist Start: 08-03-2021 take 1 tablet by mouth every six hours traMADol HCl 100 MG 1 tablet as needed Orally four times a day for 30 days Jul, Active Vitamin D (Ergocalciferol) 26324 UNIT (16 sources) take 1 capsule by mouth every we ek Vitamin D (Ergocalciferol) 38100 UNIT 1 capsule Orally once a week on Saturday for 90 day(s) Active {20 (nirmatrelvir 150 MG Ora l Tablet) / 10 (ritonavir 100 MG Oral Tablet) } Pack [Paxlovid 5-Day] (3 sources) Start: 11-13-2021 Paxlovid 20 x 150 MG & 10 x 100MG as directed Orally daily for 5 days Nov, Active Completed/Discontinued Medications Medication Drug Class(es) Dates Sig (Normalized) Sig (Original) acetaminophen 325 mg / oxyCODONE hydrochloride 10 mg oral tablet (20 sources) Opioid Agonist Start: 08-26-2023 oxyCODONE-acetamin ophen (PERCOCET 10) 10-325 mg tablet 1 tablet. 0 08/26/2023 Active Start: 04-17-2023 take 1 tablet by chito th every four to six hours as needed Percocet 10-325 MG 1 tablet as needed Orally every 4-6 hrs for 30 days G89.4 palliative care prescribing Apr, Active Start: 04-11-2023 End: 11-05-2023 take 1 tablet by mouth every four hours Oxycodone-Acetaminophen (Percocet) 10-325 mg tablet Discontinued 1 TAB PO Q4H 150 30 October 02, 2023 October 02, 2023 4:14pm Start: 03-12-2023 take 1 tablet by chito th every four to six hours as needed Percocet 10-325 MG 1 tablet as needed Orally every 4-6 hrs for 30 days G89.4 palliative care prescribing Mar, Active Start: 02-07-2023 take 1 tablet by chito th every four hours Percocet 10-325 MG 1 tablet as needed Orally every 4 hrs for 15 days G89.4 palliative care prescribing and adjusting dose/frequency; pt tolerating MSER at lower dose and will trial BID dosing starting today, thanks Feb, Active Start: 01-18-2023 take 1 tablet by chito th every four hours Percocet 10-325 MG 1 tablet as needed Orally every 4 hrs for 15 days G89.4 palliative care prescribing and adjusting dose/frequency; pt tolerating MSER at lower dose and will trial BID dosing starting today, thanks Jan, Active Start: 10-03-2022 Percocet 10-32 5 MG 1 tablet as needed Orally two to three times daily as needed for 30 days Sep, Active Start: 10-03-2022 Percocet 5-325 MG 1 tablet as needed Orally two to three times daily as needed for 30 days Sep, Active Start: 08-13-2022 Percocet 5-325 MG 1 tablet as needed Orally two to three times daily as needed for 30 days August, Active Start: 06-22-2022 Percocet 5-325 MG 1 tablet as needed Orally two to three times daily as needed for 30 days Jun, Active Start: 03-28-2022 Percocet 5-325 MG 1 tablet as needed Orally two to three times daily as needed for 30 days Mar, Active Start: 03-07-2022 Percocet 5-325 MG 1 tablet as needed Orally two to three times daily as needed for 10 days Feb, Active Start: 02-14-2022 Percocet 5-325 MG 1 tablet as needed Orally two to three times daily as needed for 10 days Feb, Active Start: 01-16-2022 Percocet 5-325 MG 1 tablet as needed Orally two to three times daily as needed for 10 days Jan, Active Start: 12-25-2021 Percocet 5-325 MG 1 tablet as needed Orally two to three times daily as needed for 10 days Dec, Active Start: 12-01-2021 Percocet 5-325 MG 1 tablet as needed Orally two to three times daily as needed for 10 days Nov, Active Start: 10-30-2021 Percocet 5-325 MG 1 tablet as needed Orally two to three times daily as needed for 10 days Oct, Active Start: 09-20-2021 Percocet 5-325 MG 1 tablet as needed Orally two to three times daily as needed for 10 days Sep, Active Start: 08-29-2021 Percocet 5-325 MG 1 tablet as needed Orally two to three times daily as needed for 10 days August, Active Start: 08-07-2021 Percocet 5-325 MG 1 tablet as needed Orally two to three times daily as needed for 10 days August, Active Start: 07-10-2021 Percocet 5-325 MG 1 tablet as needed Orally two to three times daily as needed for 10 days Jul, Active Start: 03-06-2021 Percocet 5-325 MG 1 tablet as needed Orally two to three times daily as needed for 10 days Feb, Active Start: 01-24-2021 Start: 01-24-2021 Percocet 5-325 MG 1 tablet as needed Orally two to three times daily as needed for 10 days Jan, Active Start: 12-01-2019 take 1 tablet by chito th every six hours as needed for pain Percocet 5 mg-325 mg oral tablet 1 tab(s), Oral, q6hr as needed for pain, Refill(s) 0 Start Date: 12/01/19 Status: Ordered Start: 01-06-2019 End: 04-11-2023 take 1 tablet by mouth three times daily Oxycodone-Acetaminophen Discontinued 1 TAB PO Three times daily November 08, 2021 12:00am April 11, 2023 8:09am ARIPiprazole 5 mg oral tablet (20 sources) Atypical Antipsychotic Start: 07-25-2017 End: 06-03-2023 take 1 tablet by mouth once daily Aripiprazole (Abilify) 5 mg Tablet Discontinued 1 TAB PO Daily December 25, 2018 12:00am June 03, 2023 11:02am Azithromycin (2 sources) Macrolide Antimicrobial Start: 09-23-2023 End: 11-15-2023 Azithromycin Discontinued 0 PO .COMPLEX 6 September 23, 2023 12:00am November 15, 2023 8:25am For 250 mg dose pack: take 500 mg today (day 1), then 250 mg for 4 days (days 2-5) PO Start: 09-23-2023 Azithromycin A ctive 0 PO .COMPLEX 6 5 September 23, 2023 12:00am For 250 mg dose pack: take 500 mg today (day 1), then 250 mg for 4 days (days 2-5) PO 120 actuat budesonide 0.16 mg/actuat / formoterol fumarate 0.0045 mg/actuat metered dose inhaler (20 sources) Corticosteroid, beta2-Adrenergic Agonist Start: 09-21-2020 take 2 puff(s) by inhalation twice daily Symbicort 160-4.5 MCG/ACT 2 puffs Inhalation Twice a day Sep, Not-Taking Start: 09-21-2020 Start: 04-12-2016 take 2 puff(s) by in halation twice daily Symbicort 80-4.5 MCG/ACT 2 puffs Inhalation Twice a day for 90 days Apr, Active ciclopirox 0.0077 mg/mg topi janice gel (20 sources) Start: 01-24-2021 Ciclopirox 0.7 7 % 1 application Externally Once a day for 30 days Jan, Not-Taking Start: 01-24-2021 clopidogrel 75 mg oral tablet (20 sources) [id number] Platelet Inhibitor Start: 02-21-2012 End: 07-25-2023 take 1 tablet by mouth every other day Clopidogrel (Plavix) 75 mg tablet Discontinued 75 MG PO Q48H July 25, 2023 9:28am July 25, 2023 9:30am 75 mg orally every other day doxycycline hyclate 100 mg oral tablet (17 sources) Tetracycline-clas s Drug Start: 01-22-2023 End: 04-11-2023 take 100 mg by mouth twice daily Doxycycline Hyclate Discontinued 100 MG PO Twice daily 20 January 22, 2023 12:00am April 11, 2023 8:12am take 1 capsule by mouth twice da mina Doxycycline Hyclate 100 MG 1 capsule Orally Twice a day for 10 days Active fenofibrate 145 mg oral tablet (20 sources) Peroxisome Proliferator Receptor alpha Agonist Start: 10-20-2008 End: 07-25-2023 take 1 tablet by mouth once daily Fenofibrate Nanocrystallized (Tricor) 145 mg tablet Discontinued 145 MG PO Daily 90 90 July 24, 2023 9:09am July 25, 2023 9:31am fluconazole 200 mg oral tablet (17 sources) Azole Antifungal Start: 08-20-2023 End: 09-09-2023 take 1 tablet by mouth once daily Fluconazole (Diflucan) 200 mg tablet Discontinued 200 MG PO Daily August 20, 2023 12:00am September 04, 2023 8:50am Start: 06-20-2023 End: 07-12-2023 take 1 tablet by mouth once daily Fluconazole (Diflucan) 200 mg tablet Discontinued 200 MG PO Daily June 20, 2023 12:00am July 12, 2023 11:23am hydroCHLOROthiazide 25 mg oral tablet (10 sources) Thiazide Diuretic Start: 04-11-2023 End: 08-12-2023 take 25 mg by mouth once daily Hydrochlorothiazide Discontinued 25 MG PO Daily April 11, 2023 1:00am August 12, 2023 9:19am Ketorolac (20 sources) Nonsteroidal Anti-inflammatory Drug, Cyclooxygenase Inhibitor Start: 10-03-2016 Toradol per 15 mg Sep, 2 cc metoclopramide 10 mg oral tablet (16 sources) Dopamine-2 Receptor Antagonist Start: 06-11-2017 End: 01-07-2019 take 1 tablet by mouth once daily Metoclopramide Hcl (Reglan) 10 mg Tablet Discontinued 10 MG PO Daily June 11, 2017 1:00am January 07, 2019 8:49am 24 hr mirabegron 25 mg extended release oral tablet (16 sources) beta3-Adrenergic Agonist Start: 12-25-2018 End: 11-08-2021 take 1 tablet by mouth once daily Mirabegron (Myrbetriq) 25 mg Tablet Extended Release 24 Hr Discontinued 25 MG PO Daily December 25, 2018 12:00am November 08, 2021 10:05am morphine sulfate 15 mg extended release oral tablet (20 sources) Opioid Agonist Start: 06-04-2023 End: 10-02-2023 take 15 mg by mouth every twelve hours Morphine Discontinued 15 MG PO Q12H 60 October 02, 2023 October 02, 2023 4:14pm Start: 05-07-2023 take 1 tablet by chito th every twelve hours Morphine Sulfate ER 15 MG 1 tablet Orally every 12 hrs for 30 days G89.4 Apr, Active Start: 04-11-2023 End: 06-04-2023 take 15 mg by mouth once daily Morphine Discontinued 1 5 MG PO Daily May 27, 2023 June 04, 2023 10:30am Start: 04-03-2023 take 1 tablet by chito th every twelve hours Morphine Sulfate ER 15 MG 1 tablet Orally every 12 hrs for 30 days G89.4 Mar, Active Start: 03-06-2023 take 1 tablet by chito th every twelve hours Morphine Sulfate ER 15 MG 1 tablet Orally every 12 hrs for 30 days G89.4 Feb, Active Start: 01-31-2023 take 1 tablet by chito th every twenty-four hours Morphine Sulfate ER 15 MG 1 tablet Orally Once a day for 30 days G89.4 RX 30d supply - if insurance rejects due to limits on tabs/30d, please fill 7 day supply and contact my office to request another Rx (for 30d supply). Thanks Jan, Active Start: 01-21-2023 take 1 tablet by chito th every twelve hours Morphine Sulfate ER 15 MG 1 tablet Orally every 12 hrs for 30 days G89.4 Feb, Active Start: 01-10-2023 take 1 tablet by chito th at bedtime Morphine Sulfate ER 15 MG 1 tablet Orally at bedtime for 15 days G89.4 pt revoked hospice benefit; palliative care prescribing now Jan, Active nystatin 770307 unt/ml oral suspension (20 sources) Polyene Antifungal Start: 06-20-2023 End: 08-12-2023 take 1 mL by mouth four times daily Nystatin Discontinued 4 ML PO Four times daily June 20, 2023 12:00am August 12, 2023 9:21am Start: 08-21-2022 take 4 mL by mouth f our times daily Nystatin 271808 UNIT/ML 4 ml Mouth/Throat Four times a day for 10 days August, Active Start: 08-21-2022 take 4 mL by mouth f our times daily Nystatin [id number] UNIT/ML 4 ml Mouth/Throat Four times a day for 10 days August, Active omeprazole 20 mg delayed release oral tablet (20 sources) Proton Pump Inhibitor Start: 06-11-2017 End: 06-20-2023 take 20 mg by mouth once daily Omeprazole Discontinued 20 MG PO Daily June 11, 2017 1:00am June 20, 2023 10:11am Start: 09-20-2008 take 20 mg by mouth once daily Omeprazole Active 20 MG PO Daily June 20, 2023 12:00am oxybutynin chloride 2.5 mg oral tablet (20 sources) Cholinergic Muscarinic Antagonist Start: 09-11-2023 End: 09-12-2023 take 1 tablet by mouth three times daily oxybutynin (DITROPAN) 2.5 mg tablet Take 1 tablet (2.5 mg) by mouth three times a day. 30 tablet 0 09/11/2023 09/12/2023 Discontinued Start: 12-01-2019 take 1 tablet by chito th once daily as needed oxybutynin 5 mg Tab 5 mg = 1 tab(s), Oral, Daily, PRN for urinary discomfort, Refills(s) 0 Start Date: 12/01/19 Status: Ordered take 1 tablet by chito th every twenty-four hours Oxybutynin Chloride ER 15 MG 1 tablet Orally Once a day Active pregabalin 75 mg oral capsule (16 sources) Start: 12-25-2018 End: 11-08-2021 take 1 capsule by mouth once daily Pregabalin (Lyrica) 75 mg Capsule Discontinued 1 CAP PO Daily December 25, 2018 12:00am November 08, 2021 10:07am Sennosides (Senna) 8.6 mg Capsule (10 sources) Start: 04-11-2023 End: 05-27-2023 take 1 capsule by mouth once daily at bedtime Sennosides (Senna) 8.6 mg Capsule Discontinued 8.6 MG PO Daily at bedtime April 11, 2023 1:00am May 27, 2023 3:09pm simvastatin 40 mg oral tablet (20 sources) HMG-CoA Reductase Inhibitor Start: 07-07-2011 End: 08-16-2023 take 40 mg by mouth once daily at bedtime Simvastatin Discontinued 40 MG PO Daily at bedtime August 16, 2023 8:42am August 16, 2023 8:43am tolterodine tartrate 2 mg oral tablet (16 sources) Cholinergic Muscarinic Antagonist Start: 01-06-2019 End: 01-08-2019 take 1 tablet by mouth twice daily Tolterodine Discontinued 1 TAB PO Twice daily January 06, 2019 12:00am January 08, 2019 12:51pm Vitamin D 50,000 intl units (1.25 mg) oral capsule (9 sources) Start: 05-31-2015 take 1 capsule by mouth once Vitamin D 50,000 intl units (1.25 mg) oral capsule 50,000 International_Unit = 1 cap(s), Oral, Saturday, # 4 cap(s), Refills(s) 0 Start Date: 05/31/15 Status: Ordered Start: 05-31-2015 take 1 capsule by mo [facility] every week Vitamin D 50,000 intl units (1.25 mg) oral capsule 50,000 International_Unit = 1 cap(s), Oral, qWeek, # 4 cap(s), Refills(s) 0 Start Date: 05/31/15 Status: Ordered zolpidem tartrate 5 mg oral tablet (20 sources) gamma-Aminobutyric Acid-ergic Agonist Start: 06-11-2017 End: 04-11-2023 take 5 mg by mouth once daily at bedtime Zolpidem Discontinued 5 MG PO Daily at bedtime November 08, 2021 12:00am November 08, 2021 10:12am Start: 05-31-2015 take 1 tablet by [facility] every twenty-four hours Ambien 10 MG 1 tablet at bedtime as needed Orally Once a day for 90 days Jan, Not-Taking Problems Active Problems Problem Classification Problem Date Documented Da te Episodic/Chronic Abdominal pain (2 sources) Pelvic and perineal pain; Translations: [Pain in female pelvis] Onset: 4 09-12-2023 Episodic Acute cerebrovascular disease (10 sources) Cerebrovascular accident; Translations: [Cerebral infarction] Onset: 4 05-31-2015 Chronic Anxiety disorders (20 sources) Anxiety; Translations: [Anxiety disorder, unspecified] Onset: 1 Resolved: 2 Chronic Cardiac dysrhythmias (1 source) Tachycardia, unspecified Episodic Chronic obstructive pulmonary disease and bronchiectasis (20 sources) Chronic obstructive lung disease; Translations: [Chronic obstructive pulmonary disease, unspecified] Onset: 1 Resolved: 2 Chronic Diseases of mouth; excluding dental (1 source) Dry mouth, unspecified Episodic Diseases of white blood cells (1 source) Leukocytosis; Translations: [Elevated white blood cell count, unspecified] Onset: 4 Chronic Disorders of lipid metabolism (20 sources) Pure hypercholesterolemia; Translations: [Pure hypercholesterolemia] Onset: 1 Resolved: 2 Chronic E Codes: Fall (13 sources) Fall on same level from slipping, tripping or stumbling ; Translations: [Fall on same level from slipping, tripping and stumbling without subsequent striking against object, initial encounter] 01-18-2023 Episodic Esophageal disorders (20 sources) Gastroesophageal reflux disease; Translations: [Gastro-esophageal reflux disease without esophagitis] Onset: 3 Chronic Genitourinary symptoms and ill-defined conditions (20 sources) Genuine stress incontinence; Translations: [Stress incontinence (female) (male)] Onset: 4 12-27-2021 Chronic Genitourinary symptoms and ill-defined conditions (20 sources) Increased frequency of urination; Translations: [Nocturia] Onset: 4 11-11-2018 Episodic Headache; including migraine (20 sources) Migraine with aura; Translations: [Migraine with aura, not intractable, without status migrainosus] Chronic Immunizations and screening for infectious disease (1 source) Encounter for immunization Episodic Mood disorders (9 sources) Depressive disorder 05-31-2015 Chronic Mycoses (20 sources) Onychomycosis; Translations: [Tinea unguium] Onset: 1 Resolved: 1 Episodic Nausea and vomiting (1 source) Nausea; Translations: [Nausea] Onset: 4 Episodic Nonspecific chest pain (7 sources) Chest pain; Translations: [Other chest pain] Onset: 3 Episodic Nutritional deficiencies (20 sources) Vitamin D deficiency; Translations: [Vitamin D deficiency, unspecified] Chronic Open wounds of extremities (20 sources) Laceration of left knee; Translations: [Laceration without foreign body, left knee, initial encounter] Onset: 4 01-18-2023 Episodic Osteoporosis (20 sources) Osteoporosis; Translations: [Age-related osteoporosis without current pathological fracture] Chronic Other aftercare (20 sources) Seen by palliative care physician; Translations: [Encounter for palliative care] Episodic Other aftercare (1 source) Encounter for palliative care Episodic Other aftercare (12 sources) Wound finding; Translations: [Encounter for other specified aftercare] 01-22-2023 Episodic Other and unspecified benign neoplasm (16 sources) History of polyp of colon; Translations: [Personal history of colonic polyps] 06-14-2017 Episodic Other circulatory disease (2 sources) History of transient ischemic attack; Translations: [Personal history of transient ischemic attack (TIA), and cerebral infarction without residual deficits] Onset: 3 Episodic Other circulatory disease (5 sources) History of cerebrovascular accident 11-25-2022 Episodic Other diseases of bladder and urethra (9 sources) 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 Episodic Other gastrointestinal disorders (20 sources) Dysphagia; Translations: [Dysphagia, unspecified] Episodic Other gastrointestinal disorders (1 source) Other dysphagia Episodic Other gastrointestinal disorders (20 sources) Constipation; Translations: [Constipation, unspecified] Episodic Other gastrointestinal disorders (2 sources) Constipation, unspecified; Translations: [Constipation] Episodic Other lower respiratory disease (2 sources) Wheezing Onset: 2 Resolved: 2 Episodic Other lower respiratory disease (1 source) Other forms of dyspnea Episodic Other lower respiratory disease (1 source) Dyspnea, unspecified; Translations: [Other respiratory abnormalities] 09-23-2023 Episodic Other nervous system disorders (20 sources) Chronic pain; Translations: [Other chronic pain] Chronic Other nervous system disorders (17 sources) Other chronic pain Chronic Other nervous system disorders (10 sources) Chronic pain syndrome; Translations: [Chronic pain syndrome] 05-23-2023 Chronic Other nervous system disorders (9 sources) Chronic pain syndrome; Translations: [Chronic pain syndrome] 07-12-2023 Chronic Other non-traumatic joint disorders (20 sources) Arthralgia of the pelvic region and thigh; Translations: [Pain in right hip] Episodic Other non-traumatic joint disorders (1 source) Effusion, left knee Episodic Other nutritional; endocrine; and metabolic disorders (2 sources) Obesity; Translations: [Other obesity due to excess calories] Onset: 3 Chronic Other nutritional; endocrine; and metabolic disorders (5 sources) Obesity caused by energy imbalance 11-25-2022 Chronic Other screening for suspected conditions (not mental disorders or infectious disease) (1 source) Encounter for screening mammogram for malignant neoplasm of breast Episodic Peripheral and visceral atherosclerosis (20 sources) Intermittent claudication; Translations: [Peripheral vascular disease, unspecified] Chronic Prolapse of female genital organs (20 sources) Cystocele; Translations: [Cystocele, unspecified] Onset: 2 Resolved: 2 Chronic Residual codes; unclassified (20 sources) Insomnia; Translations: [Insomnia, unspecified] Episodic Residual codes; unclassified (20 sources) Tobacco dependence syndrome; Translations: [Tobacco use] Episodic Residual codes; unclassified (4 sources) Insomnia, unspecified Onset: 1 Resolved: 2 Episodic Residual codes; unclassified (14 sources) History of urinary bladder neck procedure; Translations: [Other specified postprocedural states] 12-28-2021 Episodic Residual codes; unclassified (14 sources) History of vaginoplasty; Translations: [Other specified postprocedural states] 12-28-2021 Episodic Residual codes; unclassified (2 sources) Patient encounter status; Translations: [Other specified health status] Onset: 3 Episodic Respiratory failure; insufficiency; arrest (adult) (17 sources) Chronic respiratory failure; Translations: [Chronic respiratory failure, unspecified whether with hypoxia or hypercapnia] Onset: 3 Chronic Respiratory failure; insufficiency; arrest (adult) (1 source) Acute respiratory failure; Translations: [Acute respiratory failure with hypoxia] Onset: 3 Episodic Screening and history of mental health and substance abuse codes (9 sources) Ex-smoker 11-11-2018 Episodic Skin and subcutaneous tissue infections (12 sources) Cellulitis; Translations: [Cellulitis, unspecified] 01-22-2023 Episodic Spondylosis; intervertebral disc disorders; other back problems (20 sources) Degeneration of lumbar intervertebral disc; Translations: [Other intervertebral disc degeneration, lumbar region] Onset: 2 Resolved: 2 Chronic Spondylosis; intervertebral disc disorders; other back problems (20 sources) Lumbar radiculopathy; Translations: [Radiculopathy, lumbar region] Onset: 1 Resolved: 2 Episodic Transient cerebral ischemia (20 sources) Transient cerebral ischemia; Translations: [Transient cerebral ischemic attack, unspecified] Chronic Unclassified (1 source) Pain in left knee; Translations: [Pain in left knee] Onset: 3 Urinary tract infections (8 sources) Acute cystitis with hematuria; Translations: [Urinary tract infectious disease] Onset: 1 Resolved: 1 Episodic Past or Other Problems Problem Classification Problem Date Documented Date Episodic/Chronic Other connective tissue disease (1 source) Other specified soft tissue disorders; Translations: [OTHER SPEC SOFT TISSUE DISORDERS] Onset: 09-04-2019 Episodic Other non-traumatic joint disorders (4 sources) Pain in left hip; Translations: [PAIN IN LEFT HIP] Onset: 09-02-2019 Episodic Other non-traumatic joint disorders (1 source) Pain in right hip; Translations: [PAIN IN RIGHT HIP] Onset: 09-04-2019 Episodic Other non-traumatic joint disorders (2 sources) Pain in left knee; Translations: [Pain in left knee] Onset: 01-22-2023 Episodic Substance-related disorders (9 sources) Smoker Resolved: 05-31-2015 11-11-2018 Chronic Comment on above: Added secondary to d ocumentation in Social History. Unclassified (2 sources) Acute cough R05.1 Onset: 11-13-2021 Resolved: 12-01-2021 Unclassified (14 sources) Herniated urinary bladder; Translations: [Cystocele] 12-27-2021 Results Test Name Value Interpretation Reference Range Facility Coding Summary.on 10-01-2023 Coding Summary. FLLJNcro19FVw1eQc+PG hlYWQ +XP4CVUAwZ29naIYdwO8jX2HC TElOSywgQVBQTElOSyIgbmFtZ W4hjNRcGDEy IC8+XF4kBJIjCfawqSNif9V1t OO2R30zls4fZBfdiFT0CYCrHc Jqsaest2vdxOz4FWlvMdwqQgW t TXWlwB26UMN4rK06Xp54uISrq HNis6rgsIc5LjYaFYJpAOC8mA vcUTtcp5BfRVXhJ27kdGYny0V 6 FUHpaRdjyNZmUkPbzSR7lI7sB Kdluiuxc1bvyobgFki6yt71mZ Pbk4R5nRS0F5NpeeH4UQZdrFG g KxgcuUYIaB7rgnokp1zolyvpC uCzVKMkCCv8BNc0EXAtnCrfMs IwQV15NRX3MXGspmQkV2YoQOX s dFgcSyJ8u3R5Xo0IC9BRSxieP 1VNTUFSWTwvdGQ+NH69jd99C3 FrEvuuJla5NGNwBLA0dYY3uE5 n NJZvNNwro0C6sTH6P0GevgDpa z6mv8ecAPBeGAjwK18udDAxo6 F3FREckEH8PYCgmRooBrIyiW3 3 Oyc+AHHciLnih7OoMfxbp0fxm 2kfbWn8VnhpYEHtriUgdJapFJ J7m9ArTv8oQSWxkZA5kFF0eN4 i MnOoVdA6WOhlA316DjFacTLsE hwuH61rH4HeoHD+DBNwTlt7PM RcoOeoHZ6lP4VkQQGkuyxwrEK m vMabWZ4eCFTxnyxlMPAtbT8aY JLiD4e5LyLwWyA0HBpeQ9FxGG QtshjbYm23pW5dMhDxGxW2NHt u O0RqjxZ9GMKsnIAfJTxeDPF0P 43jj2R9BUSoCMIkHHV1oDW3kK 1hbGlnbjogbGVmdDsgdmVydGl j XZabRUjwH961IDAtyIvmFvEnY GluZyBEYXRlOiAgMDYvMjUvMj AyNDwvdGQ+HAEbQHV4pIksPNS n xKNlHMsoMi2zdImsoDquUR9pZ YByjrczIPCqoG1iEHEimOHdxB wgHF3vEWKnjmadc742FiYvQEN 0 YJBzyUEcG5BwvF1lPnJxNTWgC JIoM0KrgJSeNJugD096POcnOz L1UTSxwcHmN2FrZZYopGghMyB 0 z8K6Eb3Nj8XmhexcK3CzhSBfS bQaAentODa5G7FfWriwxSQ+PC 21DFVqGC55FLk4HJI6qMxyZLi i GNPzQ6IavP9xAkObXRWkDWStJ yc+PHRhYmxlIHdpZHRoPScxMD SuNrGoqFaoNY7vCc2uBMVsMCS v bTtdcEQlEqOnx3gkIZCrWQmkE J8eeZxzR6MunKK1AVDya0u8Pn 50X25iK1AdfYT+HHDjmSQ0oQP 0 hG4sNtRqCyG2CUtuE837CdWtk ENpUgxwg6fxv6khtGf0KtP7ZL FcmuBweRvuQDU5r6CsPw96P67 s IHdpZHRoPSIxNSUiIHZhbGlnb w3pwK4sKj0+ZGNhrVB5hYB3aM 6eTqToUbH6DJgjJ119FjPxjRO v Yccad3qmm9jntOm9YhGvAFIdw jSkiIrrTMJ6f5MrVv30T1DnfP eto1FpPtt6zm14bBEjv6I5zUK 9 U8FiKGSyvbqnmKKtvNxsZQ2tI KYkthpoKUDqxH1wOZAuS8d0Kj XpPcL7SRchL9HatkQ6USBubNC g VDCosRXNwF1srtyvg3ptlluhY wOcMARsVGr8THd1HWKuhLzcJs EqJCO8AtI5ZUL2kFXbnA3hoXk n qxahpS7qMxn+SVT0rAPlgONPY D1hCoeibFK+VUDdWCO5aImfYH ogGGPjtL2vORGqG0z3OmZsObL 1 WTycF7PygbD6LLNdrUNyDHDbm QFCeP5fgcznh0jxelfkSvHpCB WqIVn0TDb7LQVqoQulQfSgACO 0 YrY8MYX4sFOowN9rcPyhgzign G9wOyc+HksxnUucRBT1BZd5B9 WpJnr0BWMwnCicVP0twMHaRYs u Pm4bsDaleInpME5cHCIrhqhvk 426TsEzo9vpOPVjvWLwOLbkEC Z2R22fi1C4DWPsXNRrJYL6jWP 4 dP5wuSdvemnccALonYmlsxRdk UvpXAkhJDjyG060ETQdcVeiHs LuSSw0U8WfMgr2HKDkwAitLW8 n hVYmOOcvFu8cvGbyjWpwOK5pN OTlsmjsx370JxPdq2vxFWGrgI XeLHivDVW1X27py0Q2UONlBPI w POR4oXE0mG9reEboqmnwfFEqa NxbroZzoQzgMBbwCHseO433RE CzgFimObPxgKm3E8ImNvy8HQD z xZbcHE1hkMQlDLmfHa3fbZpym MzsHB8vZIMvpjpqk342RyGgm1 kpEKXeqPNdCPmgXSW1N15nv0Q 6 OETjGASjCRM4gDC5kX2fgKhxq jogbGVmdDsgdmVydGljYWwtYW pfD008YMVsrBenJeCpqOvkkiP g KOcrVDw8I9ExLimmmOC+PC90Y PFmCB31xUCggXWfr0bgvSy3Jn RbCTVaCXZ5iHzgLKfwm7PtMIT t X85plWHym5S8FQOdnSomgNAcG fOihRM0gX9wBLyvynjjn2ooiv nmFiesm5ohxx12sK25Q89kSIp p RAHdLZRrRRYmVSOydFrpox9xt G9wIi8+BIUshYX3gDL0cR3eSB DcWbU7QAeeW433QdTvkBSeNpz j k9oxo0rruTe1EyI3ETSjgiRrk DnxXEB2g2BqEe61M90dCUnuNG OeGEXfQJFjYDFfxWspfa7vlR5 w Ii8+YUAscEB9mQC7bK1qDpSrG bP4HZfwX990PjLdiNTfEqbiE7 6nH5NumIT+DILiPla9GKBcsNv s KI4wlLFmCYokMj8rPXO7SlEjV qHqIYkdP8DzFKDmoqrbsfgpsL U6FYUkIADaoR74Ij7doLogVMS w jKTVqP7uoudnu3tmiwbgOdWaI PVwUGf9BXg8MQUzyMogNyChBF C9SbY4ULJ2oUXacB6dzDkzoqz g hO9wK0KdBNYmmhmfKc49xR0bI cZkPsG2ISytVrs+H62MLUcGFY CgUFNYH2HCKLHcMGzouQN+PHR k EFE9gStzSGfyVDLyaM9pJAUbV 8a2PvIkYlE5YHaxZ0RoLHMdmm zmLf02yC4hNxEvXpC6TPgfI1D v yoM0KSJpiJQaSCsjIKQ5D25vy 0L7IJQsRQBoVVC4mPX1vU9dlX lnbjogbGVmdDsgdmVydGljYWw t GRqrU434LACnpJqjNfZ3YpW5P xC4RQB2F0KzQfx7RMNjfWhwKL 7jfACgOQypHc4guMbllVvcYQ5 w SMDunsinHDFlzI2tCKMgsOEbt UesWC5rXYXsugrlv190FsPdSA J9CZVjyRYmO1JkrP3tQsKoFFA w WAMcM7BeeVExDVqgE958XCslT sR4KIMjjoSxB1KiKALmqAwyYc C1a8V9Wd49SsYWVSNwnlxsuNC + PWEiUSA8wRyvXRflVQZocM1vU RCvF6s3ElXjBxD8EBjoK7NxNM VuxbyhYr83yG8dHwPlSwO5REo u S7SlrmZ6ZEFnzSZlJQnsMTB0S 48nw3R7AGNbOYWeCZA5bUB6vS 1hbGlnbjogbGVmdDsgdmVydGl j JOxrLVhtP566XZVxxYasPrKto WFsZTwvdGQ+MPDmXDB2xQhkQQ hrRJMusF4sBOMaF8t3YmAoHpV 1 YClhO5McDTKhhvsuPp75nX7fQ hQuQjN2SAngX2UtvgL2LNNyyZ LrJSihAXU0R23ks3S7FBPiGUQ w FPK3uSI8sG3dfCfzbpxjfTCnw JzoihNjuTcqWVulEFdsY322PM LxwSjyKb59kXZajOzqdaG4M7F k PjwvdHI+MP76DRFdWC02hUBhs MRte3roaTn9RjMtIOJyUYA3jY siGUeji8NqYICaF03fcPWni7C 6 CEPbmRulrXTeFhDgdSI8wV6yX Wwamnwsn5mjxbnsTpaqh7cdzu 15wE38W79kBLrgXFZkLKCqSNH i JIWqtAnngf0cgM9jKe1+PGNvb YM6nKX7lN2eDjWkGxD4FRixU0 24EtGpcPSxAiaot2azx2wtvJa 9 RpIeJZQqraGwtOnhBXL2b9AtX c62Q52yEAnyFTRyDSBlDQTzBC PlbOevjx4mdS2iOx5+OC9ll5i n nu51bD59fEQ+DDDdWON3jXstS PvtIMOrsG8aDYzsCzT1XXRoOi FhtR74gRWfPQfuUe8tuQzvkDm g NZ2bTOTrwdywn591VbTgx4xeL IIhoBBcDGorJGW3F20ga0G5VJ PmBRGpZPO5wQW7nX6jbUtjitz g bGVmdDsgdmVydGljYWwtYWxpZ 768UKJnoPxhXhDluLPeZ0cfxh GBJZ7qVpnivJV+VYCsIFH3zMl l KTnxOADboZ2zNTKqY0h6OaKaI iG3THptZ8ObarD7IKNmtZDoUV EfjALGfM5hiyeru8yskqyyYnP w CKYxZCh4LZc3CZGwbOgtWkOiS AD8NsA7WLG4sKXlfE6evKoevs vpoR3jCrj+RklOOjwvdGQ+PHR k DNG2aIlcBYoaWTKloC2pNQAbI 2h6HuHyQaB6OWujV0YrpgY6TQ HqeAJiLZDpeVOCtS2zrzczr0h v rresPvQuLKRyPRp3UFg2AZCnx UeyZnOaFFQ8LdN6SGS7eLSxbD 6cjAgdnsbduK2aKnj+TVJOOjw v dGQ+AOEbQRB0eGnbPIneYJKdg I0nVZHrJ9e5DfTzScT1LWmaU5 XgvcA0GSHlhXLvSOWuyTJRmM1 l zaayj7efxpkaLdWdIMFvJCm5V Eb1JUIoiHjgNhYqZIO4FyS2WA V7jOGfvX5dqSdakonyiJ4aFgf + ZDV8FTG6YM34RN97K4IkOiozt GFibGU+PHRhYmxlIHdpZHRoPS txVHWpDhJpcMdkRC6aZp0lUEY y LWNvbGxhcHNlO (more content not included)... [facility] XR Chest 2 Viewson XR Chest 2 Views Exam Date/Time: 09/23/2023 12:24 EDT Reason for Exam: R06.00 Report IMPRESSION: NO EVIDENCE OF ACTIVE CARDIOPULMONARY DISEASE. COPD, WHICH IS BEST EVALUATED CLINICALLY. Low dose cancer screening should be considered if eligible, and not already enrolled in such a program. The presence of pulmonary emphysema on CT is an independent risk factor for lung cancer. EXAM: XR Chest 2 Views DATE: 09/23/2023 12:09 PM CLINICAL HISTORY: R06.00. History of COPD COMPARISON: Portable chest 08/26/2023 and chest CTA 11/25/2022. TECHNIQUE: Upright PA and lateral radiographs of the chest were obtained. FINDINGS: Mild hyperinflation and coarsening of the bronchovascular structures consistent with COPD/chronic bronchitis appear similar to the prior studies. There is no developing infiltrate, pleural effusion, vascular congestion, pneumothorax, cardiomegaly, or displaced fractures identified. Ordering Provider: TOÑA PEÑALOZA FINAL REPORT Dictated: 09/25/2023 2:30 pm Duke Castellon MD Signed (Electronic Signature): 09/25/2023 2:30 pm Signed by: Duke Casetllon MD Transcribed by: BAETRICE Technologist: CARLOS Technical Comments Radiation Dose: Ka,r in mGy = na DAP = na [facility] Consent for Treatmenton 09-06 Consent for Treatment [id number] [facility] Physician Orderon 09-23-2023 Physician Order [id number] [facility] CNPNon 09-13-2023 CNPN Telephone (UROLAV) ----- NICOLE LOMELI ([id number]) 1950 F DEF Date Time Provider Department 09/13/23 MARA MONROY During your visit today, we recorded the following information about you: Charlotte Jones 09/13/2023 10:43 AM Signed Pt scheduled for cystoscopy botox. Pt on plavix every other day. Please review and advise. No chief complaint on file. Patient has been identified by name and birthdate. Duration of symptoms: N/A Person calling: self Call patient at: on cell [phone] (home) [phone] (cell) Was an appointment scheduled: No Closing statement: Results or non-symptom based questions: Thank you for calling [facility], your call will be returned within the next business day. Charlotte Ignacio Arlet Rahman LPN 09/13/2023 1:44 PM Signed Notified per Dr. Monroy to hold plavix 5 days before She will call prescribing Dr. Donal roberts sure they are aware and okay with this Allergies As of Date: 09/13/2023 (No Known Allergies) Date Reviewed: 09/12/2023 Reviewed by: Mara Monroy MD - Fully Assessed Reason for Visit: Patient Question [4747] Prescriptions as of 09/13/2023 - simvastatin (ZOCOR) 40 mg tablet daily at bedtime. - multivit-minerals/folic acid (CENTRUM ADULT 50 PLUS ORAL) - morphine SR (MS CONTIN) 15 mg 12 hr tablet Q12H - raloxifene (EVISTA) 60 mg tablet once daily. - SENNA 8.6 mg tab - fenofibrate nanocrystallized (TRICOR) 145 mg tablet once daily. - PLAVIX 75 mg tablet Take 75 mg by mouth. - FLUoxetine (PROZAC) 40 mg capsule once daily. - omeprazole (PRILOSEC) 20 mg capsule Take 20 mg by mouth once daily. - ipratropium 20 mcg-albuterol 100 mcg (COMBIVENT RESPIMAT) 20-100 mcg/actuation inhaler four times daily. - ARIPiprazole (ABILIFY) 5 mg tablet Take 5 mg by mouth once daily. - oxyCODONE-acetaminophen (PERCOCET 10) 10-325 mg tablet 1 tablet. - tiZANidine (ZANAFLEX) 2 mg tablet two times a day. - albuterol (PROVENTIL) 2.5 mg /3 mL (0.083 %) nebulizer solution four times daily. - calcium phosphate dibas/vit D3 (VITAMIN D, WITH CALCIUM, ORAL) Take by mouth. - baclofen suppository 10 mg (CPD) Uwrap and insert a half of a suppository vaginally as directed twice daily as needed. Problem List As Of Date: 09/13/2023 (None) Encounter Status:Closed by ARLET AGUAYO on 09/13/23 Normal [facility] CNOVon 09-12-2023 CNOV Office Visit (UROLAV ) ----- NICOLE LOMELI ([id number]) 1950 F DEF Date Time Provider Department 09/12/23 4:00 PM MARA MONROY UROLAV During your visit today, we recorded the following information about you: Yaneli He RN 09/12/2023 4:49 PM Signed PVR = 0 cc/ml via bladder scan Mara Monroy MD 09/12/2023 4:49 PM Signed [facility]ON[facility] NEW PATIENT CLINIC NOTE SERVICE DATE: 09/12/2023 SERVICE TIME: 2:11 PM NAME: Nicole Lomeli REFERRED BY: Consultation requested by Dr. Kim Harris [address] [place], [place] [id number] for an opinion regarding pelvic organ prolapse. My final recommendations will be communicated back to the requesting physician by way of shared medical record or letter via [place] mail. CHIEF COMPLAINT: Urge incontinence No STACEY. Daytime and night time incontinence and significant nocturia. Has legs edema, had echho-cardiogram 2 weeks ago with normal cardiac function per patient. Not currently on any water pills. Was on oxybutynin (DITROPAN) 2.5 mg tablet, mirabegron 50mg - did not help. S/p - Cholecystectomy (1968), Hysterectomy (1969), urethral dilation (2018, dr Marshall), sling placement (2018, Dr Marshall), second sling surgery (2021, Rosette). COPD (smoking history), on oxygen. HISTORY OF PRESENT ILLNESS: Nicole Lomeli is a 72 year old F P with PMH including history of stroke (2011, on plavix since), hyperlipidemia, COPD presenting with urge incontinence and nocturia. STACEY: No URGENCY: Yes UI: Yes PADS: 6-8 thick FREQUENCY:8 per day NOCTURIA: 6 per night STRAINING TO VOID: No EMPTIES COMPLETELY: Yes UTI: No FLUIDS: mainly water Caffeine: tea/coffee SEXUALLY ACTIVE: no DYSPAREUNIA: NO Post-menopause: yes Have you had a hysterectomy:YES Postmenopausal bleeding:No Sense of vaginal bulge:YES HEMATURIA HX: No STONES: No GI: No Problem Do you have any new weakness,balance or coordination problems:NO Do you have a history of any diagnosed back or Neurological problems:YES PAST MEDICAL HISTORY No past medical history on file. PAST SURGICAL HISTORY No past surgical history on file. FAMILY HISTORY No family history on file. SOCIAL HISTORY MEDICATIONS: Current Outpatient Medications Medication Sig oxybutynin (DITROPAN) 2.5 mg tablet Take 1 tablet (2.5 mg) by mouth three times a day. No current facility-administered medications for this visit. CURRENT ALLERGIES: Allergies As of Date: 09/12/2023 (No Known Allergies) Fully Assessed 09/11/2023 OBJECTIVE PHYSICAL EXAM: There were no vitals filed for this visit. There is no height or weight on file to calculate BMI. General: No acute distress, well appearing Abdomen: Soft, NT, nondistended Extremities: Normal range of motion, no LE edema : External genitalia: Normal appearing, well estrogenized, no skin lesions Vestibule: Nontender, normal appearing Urethra: Normal appearing urethral meatus, no masses, nontender, no diverticulum, neg cough stress test Bladder: Nontender Vagina: Normal appearing, minimal discharge, no cysts or masses. Pelvic Floor Musculature: Nontender to palpation Anus and perineum grossly nl, POP-Q: Prolapse noted: Yes Ba = -2, C = -4,gh = 4, pb = 3, Bp = 0, D = N/A PVR: 0 mL via bladder US DATA: Labs UA: Normal Imaging Abdominal pelvic CT - no abnormal findings ASSESSMENT and PLAN: 72 yo F with UUI and nocturia, failed multiple medications. Symptoms create significant impact on quality of life. We discussed UUI and nocturia in details. Will pursue legs elevation, compressing socks, minimize fluids after 6pm, minimize caffeine/diet beverages. Discussed pelvic floor issues as well, will consider baclofen suppositories. -Overactive Bladder (OAB)- ICD9: 596.51, ICD10: N32.81 We reviewed the following treatment options for OAB: Lifestyle modifications including avoiding caffeine intake and dietary bladder irritants, decreasing total fluid intake, timed voiding, etc Pelvic floor exercises Medical therapy (anticholinergic medication/beta 3 agonist medication) Botox injection (including risk of UTI and incomplete bladder emptying) - if conservative measures unsuccessful PTNS - if conservative measures unsuccessful At this point patient has failed: Lifestyle modifications including avoiding caffeine intake and dietary bladder irritants, decreasing total fluid intake, timed voiding, etc Pelvic floor exercises Medical therapy (anticholinergic medication/beta 3 agonist medication) At this point pt would like to proceed with: Botox injection (including risk of UTI and incomplete bladder emptying) - if conservative measures unsuccessful -Nocturia/Nocturnal polyuria-We reviewed treatment modalities for nocturnal polyuria Lifestyle modifi (more content not included)... Normal [facility] CBC W Auto Differential pane l (Bld)on 09-11-2023 Basophils (Bld) [#/Vol] 10*3/uL Normal <0.11 [facility] Comment on above: Order Comment: Speci men Type: BLOOD SPECIMEN Ordering Facility: [facility] Address: [address] [place] [address] Performed By: #### 5 7021-8 #### [facility] CLIA [id number] [address] [place] [id number] [place] Basophils/100 WBC (Bld) 0.1 % Normal [facility] Comment on above: Order Comment: Speci men Type: BLOOD SPECIMEN Ordering Facility: [facility] Address: [address] [place] [address] Performed By: #### 5 7021-8 #### [facility] CLIA [id number] [address] [place] [address] [place] Differential cell count method Nom (Bld) Auto Normal [facility] Comment on above: Order Comment: Speci men Type: BLOOD SPECIMEN Ordering Facility: [facility] Address: [address] [place] [address] Performed By: #### 5 7021-8 #### [facility] CLIA [id number] [address] [place] [address] [place] Eosinophils (Bld) [#/Vol] 0.27 10*3/uL Normal <0.46 [facility] Comment on above: Order Comment: Speci men Type: BLOOD SPECIMEN Ordering Facility: [facility] Address: [address] [place] [address] Performed By: #### 5 7021-8 #### [facility] CLIA [id number] [address] [place] [address] [place] Eosinophils/100 WBC (Bld) 3.5 % Normal [facility] Comment on above: Order Comment: Speci men Type: BLOOD SPECIMEN Ordering Facility: [facility] Address: [address] [place] [address] Performed By: #### 5 7021-8 #### [facility] CLIA [id number] [place] Erythrocyte distribution width (RBC) [Ratio] 13.2 % Normal 11.5-15.0 [facility] Comment on above: Order Comment: Speci men Type: BLOOD SPECIMEN Ordering Facility: [facility] Address: [address] [place] [address] Performed By: #### 5 7021-8 #### [facility] CLIA [id number] [address] [place] [address] [place] Hematocrit (Bld) [Volume fraction] 35.5 % Low 36.0-46.0 [facility] Comment on above: Order Comment: Speci men Type: BLOOD SPECIMEN Ordering Facility: [facility] Address: [address] [place] [address] Performed By: #### 5 7021-8 #### [facility] CLIA [id number] [address] [place] [address] [place] Hemoglobin (Bld) [Mass/Vol] 11.3 g/dL Low 11.5-15.5 [facility] Comment on above: Order Comment: Speci men Type: BLOOD SPECIMEN Ordering Facility: [facility] Address: [address] [place] [address] Performed By: #### 5 7021-8 #### [facility] CLIA [id number] [address] [place] [address] [place] Immature granulocytes (Bld) [#/Vol] 0.03 10*3/uL Normal <0.10 [facility] Comment on above: Order Comment: Speci men Type: BLOOD SPECIMEN Ordering Facility: [facility] Address: [address] [place] [address] Performed By: #### 5 7021-8 #### [facility] CLIA [id number] [address] [place] [address] [place] Immature granulocytes/100 WBC (Bld) 0.4 % Normal [facility] Comment on above: Order Comment: Speci men Type: BLOOD SPECIMEN Ordering Facility: [facility] Address: [address] [place] [address] Performed By: #### 5 7021-8 #### [facility] [place] [id number] [address] [place] [address] [place] Lymphocytes (Bld) [#/Vol] 2.42 10*3/uL Normal 1.00-4.00 [facility] Comment on above: Order Comment: Speci men Type: BLOOD SPECIMEN Ordering Facility: [facility] Address: [address] [place] [address] Performed By: #### 5 7021-8 #### [facility] IA [id number] [address] [place] [address] [place] Lymphocytes/100 WBC (Bld) 31.6 % Normal [facility] Comment on above: Order Comment: Speci men Type: BLOOD SPECIMEN Ordering Facility: [facility] Address: [address] [place] [address] Performed By: #### 5 7021-8 #### [facility] IA [id number] [address] [place] [address] [place] MCH (RBC) [Entitic mass] 30.9 pg Normal 26.0-34.0 [facility] Comment on above: Order Comment: Speci men Type: BLOOD SPECIMEN Ordering Facility: [facility] Address: [address] [place] [address] Performed By: #### 5 7021-8 #### [facility] [place] [id number] [address] [place] [id number] [place] MCHC (RBC) [Mass/Vol] 31.8 g/dL Normal 30.5-36.0 [facility] Comment on above: Order Comment: Speci men Type: BLOOD SPECIMEN Ordering Facility: [facility] Address: [address] [place] [address] Performed By: #### 5 7021-8 #### [facility] IA [id number] [address] [place] [address] [place] MCV (RBC) [Entitic vol] 97.0 fL Normal 80.0-100.0 [facility] Comment on above: Order Comment: Speci men Type: BLOOD SPECIMEN Ordering Facility: [facility] Address: [address] [place] [address] Performed By: #### 5 7021-8 #### [facility] IA [id number] [address] [place] [address] [place] Monocytes (Bld) [#/Vol] 0.64 10*3/uL Normal <0.87 [facility] Comment on above: Order Comment: Speci men Type: BLOOD SPECIMEN Ordering Facility: [facility] Address: [address] [place] [address] Performed By: #### 5 7021-8 #### [facility] IA [id number] [address] [place] [address] [place] Monocytes/100 WBC (Bld) 8.4 % Normal [facility] Comment on above: Order Comment: Speci men Type: BLOOD SPECIMEN Ordering Facility: [facility] Address: [address] [place] [address] Performed By: #### 5 7021-8 #### [facility] IA [id number] [address] [place] [id number] [place] Neutrophils (Bld) [#/Vol] 4.29 10*3/uL Normal 1.45-7.50 [facility] Comment on above: Order Comment: Speci men Type: BLOOD SPECIMEN Ordering Facility: [facility] Address: [address] [place] [address] Performed By: #### 5 7021-8 #### [facility] CLIA [id number] [address] [place] [address] [place] Neutrophils/100 WBC (Bld) 56.0 % Normal [facility] Comment on above: Order Comment: Speci men Type: BLOOD SPECIMEN Ordering Facility: [facility] Address: [address] [place] [address] Performed By: #### 5 7021-8 #### [facility] CLIA [id number] [address] [place] [address] [place] Nucleated RBC (Bld) [#/Vol] 10*3/uL Normal <0.01 [facility] Comment on above: Order Comment: Speci men Type: BLOOD SPECIMEN Ordering Facility: [facility] Address: [address] [place] [address] Performed By: #### 5 7021-8 #### [facility] CLIA [id number] [address] [place] [address] [place] Nucleated RBC/100 WBC (Bld) [Ratio] 0.0 /100 WBC Normal [facility] Comment on above: Order Comment: Speci men Type: BLOOD SPECIMEN Ordering Facility: [facility] Address: [address] [place] [address] Performed By: #### 5 7021-8 #### [facility] CLIA [id number] [address] [place] [address] [place] Platelet mean volume (Bld) [Entitic vol] 9.8 fL Normal 9.0-12.7 [facility] Comment on above: Order Comment: Speci men Type: BLOOD SPECIMEN Ordering Facility: [facility] Address: [address] [place] [address] Performed By: #### 5 7021-8 #### [facility] CLIA [id number] [address] [place] [address] [facility] [place] Platelets (Bld) [#/Vol] 287 10*3/uL Normal 150-400 [facility] Comment on above: Order Comment: Speci men Type: BLOOD SPECIMEN Ordering Facility: [facility] Address: [address] [place] [address] Performed By: #### 5 7021-8 #### [facility] CLIA [id number] [address] [place] [address] [place] RBC (Bld) [#/Vol] 3.66 10*6/uL Low 3.90-5.20 [facility] Comment on above: Order Comment: Speci men Type: BLOOD SPECIMEN Ordering Facility: [facility] Address: [address] [place] [address] Performed By: #### 5 7021-8 #### [facility] CLIA [id number] [address] [place] [address] [place] WBC (Bld) [#/Vol] 7.66 10*3/uL Normal 3.70-11.00 [facility] Comment on above: Order Comment: Speci men Type: BLOOD SPECIMEN Ordering Facility: [facility] Address: [address] [place] [address] Performed By: #### 5 7021-8 #### [facility] CLIA [id number] [address] [place] [address] [place] [address] ABD/PEL W IVCONon 09-10- 024 CT ABD/PEL W IVCON * * *Final Report* * * DATE OF EXAM: Sep 11 2023 4:52PM [facility] 0530 - CT ABD/PEL W IVCON / PROCEDURE REASON: Abdominal pain, acute, nonlocalized * * * * Physician Interpretation * * * * EXAMINATION: CT ABDOMEN AND PELVIS WITH IV CONTRAST CLINICAL HISTORY: Abdominal pain TECHNIQUE: CT of the abdomen and pelvis was performed using standard technique, scanning from just above the dome of the diaphragm to the symphysis pubis. MQ: CTAP_3 Contrast: IV: 100 ml of Omnipaque 350 : ml of CT Radiation dose: Integrated Dose-length product (DLP) for this visit = 896 mGy*cm. CT Dose Reduction Employed: Automated exposure control(AEC) and iterative recon COMPARISON: None. RESULT: Lung bases: The visualized lung bases are clear. Liver: Fatty infiltration of the liver parenchyma is noted. No focal hepatic mass is seen. The portal vein and hepatic veins are within normal limits. Bile ducts: No intra or extrahepatic bile duct dilatation is noted. Gallbladder: Absent. Spleen: The spleen is of normal size and enhancement Pancreas: The pancreatic parenchyma is of normal enhancement without a discrete mass identified. No peripancreatic fluid or fat stranding is appreciated. The pancreatic duct is of normal caliber. Adrenal glands :The adrenal glands are normal in morphology. No discrete nodule is identified. Kidneys: Normal enhancement of the renal parenchyma is noted. No solid mass is identified. No discrete stone is identified. There is no evidence of hydronephrosis or hydroureter. Abdominal aorta: The abdominal aorta is of normal caliber without evidence of dissection. A normal-appearing aortic bifurcation is present. Lymphadenopathy: There is no intra-abdominal, retroperitoneal, or inguinal lymphadenopathy. Ascites: No fluid collection is seen in the abdomen or pelvis. Urinary bladder: The urinary bladder is unremarkable without an intraluminal filling defect. No perivesical fat stranding is appreciated. Bowel: No dilated loops of small bowel are seen to suggest bowel obstruction. Appendix: Not identified. Osseous structures: No osteolytic or osteoblastic bone lesion is identified. No acute osseous abnormality is seen. IMPRESSION: 1. No evidence of significant intra-abdominal or intrapelvic pathology. Manager [facility] Transcribe Date/Time: Sep 11 2023 5:15P Dictated by : JUSTICE EMERSON MD This examination was interpreted and the report reviewed and electronically signed by: JUSTICE EMERSON MD on Sep 11 2023 5:19PM EST [id number] Normal [facility] Comprehensive metabolic 2000 panelon 09-11-2023 Albumin [Mass/Vol] 3.9 g/dL Normal 3.9-4.9 [facility] Comment on above: Order Comment: Speci men Type: BLOOD SPECIMEN Ordering Facility: [facility] Address: [address] [place] [address] Performed By: #### 2 4323-8 #### [facility] CLIA [id number] [address] [place] [address] [place] ALP [Catalytic activity/Vol] 109 U/L Normal 34-123 [facility] Comment on above: Order Comment: Speci men Type: BLOOD SPECIMEN Ordering Facility: [facility] Address: [address] [place] [address] Performed By: #### 2 4323-8 #### [facility] CLIA [id number] [address] [place] [address] [place] ALT [Catalytic activity/Vol] 13 U/L Normal 7-38 [facility] Comment on above: Order Comment: Speci men Type: BLOOD SPECIMEN Ordering Facility: [facility] Address: [address] [place] [address] Performed By: #### 2 4323-8 #### [facility] CLIA [id number] [address] [place] [address] [place] Anion gap [Moles/Vol] 7 mmol/L Low 8-15 [facility] Comment on above: Order Comment: Speci men Type: BLOOD SPECIMEN Ordering Facility: [facility] Address: [address] [place] [address] Performed By: #### 2 4323-8 #### [facility] CLIA [id number] [address] [place] [address] [place] AST [Catalytic activity/Vol] 33 U/L Normal 13-35 [facility] Comment on above: Order Comment: Speci men Type: BLOOD SPECIMEN Ordering Facility: [facility] Address: [address] [place] [address] Performed By: #### 2 4323-8 #### [facility] CLIA [id number] [address] [place] [address] [place] Bilirubin [Mass/Vol] 0.3 mg/dL Normal 0.2-1.3 [facility] Comment on above: Order Comment: Speci men Type: BLOOD SPECIMEN Ordering Facility: [facility] Address: [address] [place] [address] Performed By: #### 2 4323-8 #### [facility] CLIA [id number] [address] [place] [address] [place] Calcium [Mass/Vol] 9.3 mg/dL Normal 8.5-10.2 [facility] Comment on above: Order Comment: Speci men Type: BLOOD SPECIMEN Ordering Facility: [facility] Address: [address] [place] [address] Performed By: #### 2 4323-8 #### [facility] CLIA [id number] [address] [place] [address] [place] Chloride [Moles/Vol] 105 mmol/L Normal 98-107 [facility] Comment on above: Order Comment: Speci men Type: BLOOD SPECIMEN Ordering Facility: [facility] Address: [address] [place] [address] Performed By: #### 2 4323-8 #### [facility] IA [id number] [address] [place] [address] [place] CO2 [Moles/Vol] 31 mmol/L High 22-30 [facility] Comment on above: Order Comment: Speci men Type: BLOOD SPECIMEN Ordering Facility: [facility] Address: [address] [place] [address] Performed By: #### 2 4323-8 #### [facility] IA [id number] [place] [address] [place] Creatinine [Mass/Vol] 0.82 mg/dL Normal 0.58-0.96 [facility] Comment on above: Order Comment: Speci men Type: BLOOD SPECIMEN Ordering Facility: [facility] Address: [address] [place] [address] Performed By: #### 2 4323-8 #### [facility] IA [id number] [address] [place], [place] [id number] [place] Creatinine and Glomerular filtration rate.predicted panel (S/P/Bld) 76 mL/min/1.73m??? Normal >=60 [facility] Comment on above: Order Comment: Speci men Type: BLOOD SPECIMEN Ordering Facility: [facility] Address: [address] [place] [address] Result Comment: Summer mated Glomerular Filtration Rate (eGFR) is calculated using the 2020 CKD-EPI creatinine equation. This equation utilizes serum creatinine, sex, and age as parameters. The creatinine assay has traceable calibration to isotope dilution-mass spectrometry. Refer to KDIGO guidelines for clinical interpretation. In patients with unstable renal function, e.g. those with acute kidney injury, the eGFR may not accurately reflect actual GFR. Performed By: #### 2 4323-8 #### [facility] CLIA [id number] [address] [place] [address] [place] Glucose [Mass/Vol] 111 mg/dL High 74-99 [facility] Comment on above: Order Comment: Sulaiman torres Type: BLOOD SPECIMEN Ordering Facility: [facility] Address: [address] [place] [address] Result Comment: The [place] Diabetes Association (ADA) provides guidance for cutoff values for fasting glucose and random glucose. The ADA defines fasting as no caloric intake for at least 8 hours. Fasting plasma glucose results between 100 to 125 mg/dL indicate increased risk for diabetes (prediabetes). Fasting plasma glucose results greater than or equal to 126 mg/dL meet the criteria for diagnosis of diabetes. In the absence of unequivocal hyperglycemia, results should be confirmed by repeat testing. In a patient with classic symptoms of hyperglycemia or hyperglycemic crisis, random plasma glucose results greater than or equal to 200 mg/dL meet the criteria for diagnosis of diabetes. Reference: Standards of Medical Care in Diabetes 2016, [place] [employer] Association. Diabetes Care. 2016.39(Suppl 1). Performed By: #### 2 4323-8 #### [facility] CLIA [id number] [address] [place] [address] [place] Potassium [Moles/Vol] 4.1 mmol/L Normal 3.7-5.1 [facility] Comment on above: Order Comment: Sulaiman torres Type: BLOOD SPECIMEN Ordering Facility: [facility] Address: [address] [place] [address] Performed By: #### 2 4323-8 #### [facility] CLIA [id number] [address] [place] [address] [place] Protein [Mass/Vol] 6.3 g/dL Normal 6.3-8.0 [facility] Comment on above: Order Comment: Speci men Type: BLOOD SPECIMEN Ordering Facility: [facility] Address: [address] [place] [address] Performed By: #### 2 4323-8 #### [facility] CLIA [id number] [address] [place] [address] [place] Sodium [Moles/Vol] 143 mmol/L Normal 136-144 [facility] Comment on above: Order Comment: Speci men Type: BLOOD SPECIMEN Ordering Facility: [facility] Address: [address] [place] [address] Performed By: #### 2 4323-8 #### [facility] CLIA [id number] [address] [place] [address] [place] Urea nitrogen [Mass/Vol] 11 mg/dL Normal 7-21 [facility] Comment on above: Order Comment: Speci men Type: BLOOD SPECIMEN Ordering Facility: [facility] Address: [address] [place], [place] [address] Performed By: #### 2 4323-8 #### [facility] CLIA [id number] [address] [place] [address] [facility] ED NOTEon 09-11-2023 ED NOTE HNO ID: [id number] Author: CHARLOTTE OBRIEN RN Service: Emergency Medicine Author Type: Registered Nurse Type: ED Notes Filed: 09/11/2023 18:11 Note Text: Patient received written and verbal discharge instructions. Patient verbalizes understanding. All questions answered. Prescriptions sent to pharmacy and patient is aware. Patient educated on medications and dosages and verbalized understanding. Instructed to follow up with primary care doctor or follow-up doctor. No acute distress noted upon discharge. Instructed to come back to emergency room if symptoms worsen. Pt verbalized understanding. All belongings with patient. Pt ambulated with steady gait out of ED Normal [facility] ED PROV NOTEon 09-11-2023 ED PROV NOTE HNO ID: [id number] Author: SIPUS, KIM, PA-C Service: Emergency Medicine Author Type: Physician Senior Administrator Support Type: ED Provider Notes Filed: 09/11/2023 17:52 Note Text: ED Provider Note Patient Name: Nicole Lomeli : 1950 SERVICE DATE: 09/11/23 History Patient presents with: Pelvic Pain: X2 weeks issues with bladder/pelvic pain has had sling put in in past. Feels bladder is falling again. Being tx for bladder infection Dysuria: Increasing x2 weeks 72-year-old female presents to the emergency department bilateral lower abdominal pain radiating into the pelvis, described as a cramping sensation. She states that she has had this for the past several weeks, was seen at an outside hospital at [facility]'s ED 2 weeks ago, was actually seen there for chest pain however was also having the pain at that time. Was diagnosed with a UTI, put on cephalexin. Followed up with her doctor last week, repeat urinalysis/urine culture showed no evidence of infection. Continues to have discomfort in the lower pelvis as well as dysuria. Feels as though she is unable to fully empty her bladder. States that she just dribbles out urine. Has had incontinence for years and has had a sling paste in the past, approximately 3 years ago at an outside facility. She does have some microscopic hematuria on past urinalysis however no gross hematuria. No nausea or vomiting. No changes of bowel movement. No fevers or chills. No past medical history on file. No past surgical history on file. No family history on file. Social History Tobacco Use Smoking status: Not on file Smokeless tobacco: Not on file Substance and Sexual Activity Alcohol use: Not on file Drug use: Not on file Sexual activity: Not on file ALLERGIES No Known Allergies Review of Systems Constitutional: Negative for fever. Gastrointestinal: Positive for abdominal pain. Negative for constipation, diarrhea, nausea and vomiting. Genitourinary: Positive for difficulty urinating, dysuria, frequency and pelvic pain. Negative for decreased urine volume, flank pain, hematuria, urgency, vaginal bleeding and vaginal discharge. Musculoskeletal: Negative for back pain. Skin: Negative for pallor. Hematological: Negative for adenopathy. Psychiatric/Behavioral: Negative for confusion. Physical Exam Vitals BP Pulse Temp Temp src Resp SpO2 Weight Height 09/11/23 1422 09/11/23 1422 09/11/23 14209/11/23 14209/11/23 14209/11/23 1422 09/11/23 1422 -- 135/63 84 36.7 ?C (98 ?F) Oral 20 98 % 83.9 kg (185 lb) Physical Exam Vitals and nursing note reviewed. Constitutional: General: She is not in acute distress. Appearance: Normal appearance. HENT: Head: Normocephalic and atraumatic. Cardiovascular: Rate and Rhythm: Normal rate and regular rhythm. Pulmonary: Effort: Pulmonary effort is normal. No respiratory distress. Abdominal: General: Bowel sounds are normal. There is no distension. Palpations: Abdomen is soft. There is no mass. Tenderness: There is abdominal tenderness in the right lower quadrant, suprapubic area and left lower quadrant. There is no right CVA tenderness, left CVA tenderness, guarding or rebound. Hernia: No hernia is present. Genitourinary: Urethra: No prolapse, urethral pain, urethral swelling or urethral lesion. Skin: General: Skin is warm and dry. Coloration: Skin is not pale. Neurological: General: No focal deficit present. Mental Status: She is alert and oriented to person, place, and time. Diagnostic Testing ED Labs Ordered and Reviewed COMPLETE BLOOD COUNT AND DIFFERENTIAL - Abnormal; Notable for the following components: Result Value Ref Range RBC 3.66 (*) 3.90 - 5.20 m/uL Hemoglobin 11.3 (*) 11.5 - 15.5 g/dL Hematocrit 35.5 (*) 36.0 - 46.0 % All other components within normal limits COMPREHENSIVE METABOLIC PANEL - Abnormal; Notable for the following components: Glucose 111 (*) 74 - 99 mg/dL CO2 31 (*) 22 - 30 mmol/L Anion Gap 7 (*) 8 - 15 mmol/L All other components within normal limits URINALYSIS WITH MICROSCOPIC, REFLEX CULTURE - Normal Procedures ED Course / Clinical Impression Clinical Impressions as of 09/11/23 1747 Dysuria Urinary incontinence, unspecified type Pelvic pain in female MDM / Disposition / Plan 72-year-old female presents to the emergency department with pelvic pain and dysuria as well as chronic urinary incontinence. Has a bladder sling in place however feels as though the bladder is prolapsing. Her vitals are within normal limits. Urine shows no evidence of infection. She has no white count, no other acute laboratory abnormalities. CT abdomen pelvis shows no acute abnormalities as a cause of patient's discomfort. Post void bladder scan reveals no significant retention. I do feel as though this is probably more related to pelvic floor dysfunction she could benefit from seeing a urogynecologist. We have arran (more content not included)... [facility] ED Triage Noteon 09-11-2023 ED Triage Note HNO ID: [id number] Author: FELICIA HILL MD Service: ? Author Type: Physician Type: ED Triage Notes Filed: 09/11/2023 14:26 Note Text: ED INTAKE NOTE Patient Name: Nicole Lomeli Service Date: 09/11/23 BRIEF HPI: This is a 72 year old female who presents to the ED with: Suprapubic pain for 2 days. Recent UTI. No fever no nausea vomiting. BRIEF EXAM: NAD INITIAL WORKUP AND DECISION MAKING: Orders Placed This Encounter CBC with Differential Comprehensive Metabolic Panel Urinalysis w Microscopic, reflex Culture Provider examination performed via virtual platform with assistance from bedside clinician. SIGNATURE: Felicia Hill MD [facility] Laboratory - Chemistry and C hemistry - challengeon 09-11-2023 Bilirubin Ql (U) Negative Negative [facility] Glucose (U) [Mass/Vol] Negative Trace , Negative [facility] Ketones Ql (U) Negative Negative, Trace [facility] pH (U) 6.0 [pH] 5.0-8.0 [facility] Specific gravity (U) [Rel density] 1.009 1.005-1.03 0 [facility] Albumin [Mass/Vol] 3.9 g/dL 3.9-4.9 [facility] ALP [Catalytic activity/Vol] 109 U/L 34-123 [facility] ALT [Catalytic activity/Vol] 13 U/L 7-38 [facility] AST [Catalytic activity/Vol] 33 U/L 13-35 [facility] Bilirubin [Mass/Vol] 0.3 mg/dL 0.2-1.3 [facility] Calcium [Mass/Vol] 9.3 mg/dL 8.5-10.2 [facility] Chloride [Moles/Vol] 105 mmol/L 98-107 [facility] CO2 [Moles/Vol] 31 mmol/L High 22-30 [facility] Creatinine [Mass/Vol] 0.82 mg/dL 0.58-0.96 [facility] Glucose [Mass/Vol] 111 mg/dL High 74-99 [facility] Comment on above: The [place] Diabete s Association (ADA) provides guidance for cutoff values for fasting glucose and random glucose. The ADA defines fasting as no caloric intake for at least 8 hours. Fasting plasma glucose results between 100 to 125 mg/dL indicate increased risk for diabetes (prediabetes).Fasting plasma glucose results greater than or equal to 126 mg/dL meet the criteria for diagnosis of diabetes. In the absence of unequivocal hyperglycemia, results should be confirmed by repeat testing. In a patient with classic symptoms of hyperglycemia or hyperglycemic crisis, random plasma glucose results greater than or equal to 200 mg/dL meet the criteria for diagnosis of diabetes.Reference: Standards of Medical Care in Diabetes 2016, [place] [employer]. Diabetes Care. 2016.39(Suppl 1). Potassium [Moles/Vol] 4.1 mmol/L 3.7-5.1 [facility] Sodium [Moles/Vol] 143 mmol/L 136-144 [facility] Urea nitrogen [Mass/Vol] 11 mg/dL 7-21 [facility] Laboratory - Specimen inform ationon 09-11-2023 Appearance (U) Clear Clear [facility] Color (U) Colorless yellow [facility] Laboratory - Urinalysison Leukocyte esterase Test strip Ql (U) Negative Negative, 25 Chris/uL [facility] Nitrite Ql (U) Negative Negative [facility] Protein Ql (U) Negative Trace, Negative [facility] No Panel Informationon 09-10 Urine Occult Blood Trace Negative, Trace [facility] Urine RBC 0-3 /HPF 0-3 /HPF [facility] Urine Urobilinogen Normal Normal [facility] Urine WBC 0-5 /HPF 0-5 /HPF [facility] Estimated GFR (CKD-EPI) 76 mL/min/1.73m??? >=60 [facility] Comment on above: Estimated Glomerular Filtration Rate (eGFR) is calculated using the 2020 CKD-EPI creatinine equation. This equation utilizes serum creatinine, sex, and age as parameters. The creatinine assay has traceable calibration to isotope dilution-mass spectrometry. Refer to KDIGO guidelines for clinical interpretation. In patients with unstable renal function, e.g. those with acute kidney injury, the eGFR may not accurately reflect actual GFR. Protein [Mass/volume] in Ser um or Plasmaon 09-11-2023 Protein [Mass/Vol] 6.3 g/dL 6.3-8.0 [facility] Serum or plasma anion gap de terminationon 09-11-2023 Anion gap [Moles/Vol] 7 mmol/L Low 8-15 [facility] Urinalysis complete panel (U )on 09-11-2023 Bilirubin Ql (U) Negative Normal Negative [facility] Comment on above: Order Comment: Speci men Type: URINE SPECIMEN Ordering Facility: [facility] Address: [address] [place] [address] Performed By: #### 2 4356-8 #### [facility] [place] [id number] [address] [place] [address] [place] Clarity (Unsp spec) Clear Normal Clear [facility] Comment on above: Order Comment: Speci men Type: URINE SPECIMEN Ordering Facility: [facility] Address: [address] [place] [address] Performed By: #### 2 4356-8 #### [facility] [place] [id number] [address] [place] [address] [place] Color (U) Colorless Normal yellow [facility] Comment on above: Order Comment: Speci men Type: URINE SPECIMEN Ordering Facility: [facility] Address: [address] [place] [address] Performed By: #### 2 4356-8 #### [facility] [place] [id number] [address] [place] [address] [place] Glucose Test strip (U) [Mass/Vol] Negative Normal Trace, Negative [facility] Comment on above: Order Comment: Speci men Type: URINE SPECIMEN Ordering Facility: [facility] Address: [address] [place] [address] Performed By: #### 2 4356-8 #### [facility] CLIA [id number] [address] [place] [address] [place] Hemoglobin Ql (U) Trace Normal Negative, Trace [facility] Comment on above: Order Comment: Speci men Type: URINE SPECIMEN Ordering Facility: [facility] Address: [address] [place] [address] Performed By: #### 2 4356-8 #### [facility] CLIA [id number] [address] [place] [address] [place] Ketones Ql (U) Negative Normal Negative, Trace [facility] Comment on above: Order Comment: Speci men Type: URINE SPECIMEN Ordering Facility: [facility] Address: [address] [place] [address] Performed By: #### 2 4356-8 #### [facility] [place] [id number] [place] [address] [place] Leukocyte esterase Test strip Ql (U) Negative Normal Negative, 25 Chris/uL [facility] Comment on above: Order Comment: Speci men Type: URINE SPECIMEN Ordering Facility: [facility] Address: [address] [place] [address] Performed By: #### 2 4356-8 #### [facility] [place] [id number] [address] [place] [address] [place] Nitrite Ql (U) Negative Normal Negative [facility] Comment on above: Order Comment: Speci men Type: URINE SPECIMEN Ordering Facility: [facility] Address: [address] [place] [address] Performed By: #### 2 4356-8 #### [facility] CLIA [id number] [place] pH (U) 6.0 [pH] Normal 5.0-8.0 [facility] Comment on above: Order Comment: Speci men Type: URINE SPECIMEN Ordering Facility: [facility] Address: [address] [place] [address] Performed By: #### 2 4356-8 #### [facility] [place] [id number] [address] [place] [address] [place] Protein (U) [Mass/Vol] Negative Normal Trace , Negative [facility] Comment on above: Order Comment: Speci men Type: URINE SPECIMEN Ordering Facility: [facility] Address: [address] [place] [address] Performed By: #### 2 4356-8 #### [facility] [place] [id number] [address] [place] [address] [place] RBC LM.HPF (Urine sed) [#/Area] 0-3 /HPF Normal 0-3 /HPF [facility] Comment on above: Order Comment: Speci men Type: URINE SPECIMEN Ordering Facility: [facility] Address: [address] [place] [address] Performed By: #### 2 4356-8 #### [facility] [place] [id number] [address] [place] [address] [place] Specific gravity (U) [Rel density] 1.009 Normal 1.005-1.03 0 [facility] Comment on above: Order Comment: Speci men Type: URINE SPECIMEN Ordering Facility: [facility] Address: [address] [place] [address] Performed By: #### 2 4356-8 #### [facility] [place] [id number] [address] [place] [address] [place] Urobilinogen Ql (U) Normal Normal Normal [facility] Comment on above: Order Comment: Speci men Type: URINE SPECIMEN Ordering Facility: [facility] Address: [address] [place] [address] Performed By: #### 2 4356-8 #### [facility] [place] [id number] [address] [place], [place] [id number] [place] WBC LM.HPF (Urine sed) [#/Area] 0-5 /HPF Normal 0-5 /HPF [facility] Comment on above: Order Comment: Speci men Type: URINE SPECIMEN Ordering Facility: [facility] Address: [address] [place], [place] [address], [place] [address] Performed By: #### 2 4356-8 #### [facility] CLIA [id number] [address] [facility] [place] [address] [place] Pulmonary Rehabon 09-10-2023 Pulmonary Rehab [id number]#1.00TIFF Normal [facility] [id number]#1.00TIFF Normal [facility] [id number]#1.00TIFF Normal [facility] Consent for Treatmenton 08-08 Consent for Treatment [id number]#1.00TIFF Normal [facility] Automated epithelial cells c ount in urine sediment (number/area)Ordered By: Parris Guzman on 09-04-2023 Epithelial cells Auto (Urine sed) [#/Area] 5-9 [HPF] High 0-2 [facility] Bacteria [Presence] in Urine by AutomatedOrdered By: Parris Guzman on 09-04-2023 Bacteria Auto Ql (U) None seen [HPF] None Seen [facility] Bilirubin Test strip Ql (U)O rdered By: Parris Guzman on 09-04-2023 Bilirubin Ql (U) Negative Negative [facility] Calcium oxalate crystals [Pr esence] in Urine sediment by Light microscopyOrdered By: Parris Guzman on 09-04-2023 Calcium oxalate crystals LM Ql (Urine sed) 1+ [HPF] [facility] Casts [#/area] in Urine sedi ment by Microscopy low power fieldOrdered By: Parris Guzman on 09-04-2023 Casts LM.LPF (Urine sed) [#/Area] None seen [LPF] None Seen [facility] Color of Urine by AutoOrdere d By: Parris Guzman on 09-04-2023 Color (U) Yellow Yellow [facility] Comment on above: Order Comment: Name Collection Type:: Collection Method Unknown Performed By: #### C UU, ADDONUAPLUS #### [place] [address] [place] Dipstick and Microscopicon 0 09-04-2023 Appearance (U) Turbid Critically abnormal Clear [facility] Comment on above: Order Comment: Name Collection Type:: Collection Method Unknown Performed By: #### C UU, ADDONUAPLUS #### [address] Bacteria,Urine None Seen Normal None Seen [facility] Comment on above: Order Comment: Name Collection Type:: Collection Method Unknown Performed By: #### C UU, ADDONUAPLUS #### [address] Bilirubin,Urine Negative Normal Negative [facility] Comment on above: Order Comment: Name Collection Type:: Collection Method Unknown Performed By: #### C UU, ADDONUAPLUS #### [address] Calcium Oxalate Crystals,Urine 1+ Normal [facility] Comment on above: Order Comment: Name Collection Type:: Collection Method Unknown Performed By: #### C UU, ADDONUAPLUS #### [address] Glucose Ql (U) Normal Normal Normal [facility] Comment on above: Order Comment: Name Collection Type:: Collection Method Unknown Performed By: #### C UU, ADDONUAPLUS #### [address] Hyaline Casts,Urine None Seen Normal 0-1 [facility] Comment on above: Order Comment: Name Collection Type:: Collection Method Unknown Performed By: #### C UU, ADDONUAPLUS #### [address] Ketones Ql (U) Negative Normal Negative [facility] Comment on above: Order Comment: Name Collection Type:: Collection Method Unknown Performed By: #### C UU, ADDONUAPLUS #### [address] Leukocyte esterase Test strip Ql (U) Negative Normal Negative [facility] Comment on above: Order Comment: Name Collection Type:: Collection Method Unknown Performed By: #### C UU, ADDONUAPLUS #### [address] Nitrite,Urine Negative Normal Negative [facility] Comment on above: Order Comment: Name Collection Type:: Collection Method Unknown Performed By: #### C UU, ADDONUAPLUS #### [address] Occult Blood,Urine Trace High Negative [facility] Comment on above: Order Comment: Name Collection Type:: Collection Method Unknown Result Comment: PERF ORMED BY: [place] [address] PATHOLOGIST [employer] GURINDER DICK M.D. Performed By: #### C UU, ADDONUAPLUS #### [address] Other Casts,Urine None Seen Normal None Seen [facility] Comment on above: Order Comment: Name Collection Type:: Collection Method Unknown Result Comment: PERF ORMED BY: [place] [address] PATHOLOGIST [employer] GURINDER DICK M.D. Performed By: #### C UU, ADDONUAPLUS #### [address] Protein,Urine Negative Normal Negative [facility] Comment on above: Order Comment: Name Collection Type:: Collection Method Unknown Performed By: #### C UU, ADDONUAPLUS #### [place] [address] [place] RBC,Urine 3-4 Normal 0-4 [facility] Comment on above: Order Comment: Name Collection Type:: Collection Method Unknown Performed By: #### C UU, ADDONUAPLUS #### [place] [address] [place] Specificy [place],Urine 1.017 Normal 1.001-1.03 0 [facility] Comment on above: Order Comment: Name Collection Type:: Collection Method Unknown Performed By: #### C UU, ADDONUAPLUS #### [address] Squamous Epithelial Cell,Urine 5-9 High 0-2 [facility] Comment on above: Order Comment: Name Collection Type:: Collection Method Unknown Performed By: #### C UU, ADDONUAPLUS #### [address] Urobilinogen,Urine Normal Normal Normal [facility] Comment on above: Order Comment: Name Collection Type:: Collection Method Unknown Performed By: #### C UU, ADDONUAPLUS #### [address] WBC,Urine 1-2 Normal 0-4 [facility] Comment on above: Order Comment: Name Collection Type:: Collection Method Unknown Performed By: #### C UU, ADDONUAPLUS #### [address] Erythrocytes [#/area] in Uri ne sediment by Automated countOrdered By: Parris Guzman on 09-04-2023 RBC Auto (Urine sed) [#/Area] 3-4 [HPF] 0-4 [facility] Hyaline casts LM.LPF (Urine sed) [#/Area]Ordered By: Parris Guzman on 09-04-2023 Hyaline casts (Urine sed) [#/Area] None seen [LPF] 0-1 [facility] Ketones Auto test strip (U) [Mass/Vol]Ordered By: Parris Guzman on 09-04-2023 Ketones (U) [Mass/Vol] Negative Negative [facility] - Chemistry and C hemistry - challengeon 09-04-2023 Bilirubin Ql (U) Negative [facility] Glucose (U) [Mass/Vol] Negative [facility] Ketones Ql (U) Negative [facility] pH (U) 5.5 [pH] [facility] Specific gravity (U) [Rel density] 1.020 [facility] Urobilinogen (U) [Mass/Vol] 0.2 mg/dL [facility] - Specimen inform ationon 09-04-2023 Appearance (U) clear [facility] Color (U) yellow [facility] - Urinalysison Leukocyte esterase Test strip Ql (U) Negative [facility] Nitrite Ql (U) Negative [facility] Protein Ql (U) Negative [facility] Leukocytes [#/area] in Urine sediment by Automated countOrdered By: Parris Guzman on 09-04-2023 WBC Auto (Urine sed) [#/Area] 1-2 [HPF] 0-4 [facility] Nitrite Test strip Ql (U)Ord ered By: Parris Guzman on 09-04-2023 Nitrite Ql (U) Negative Negative [facility] No Panel Informationon 09-03 Urine Occult Blood small [facility] Protein Auto test strip (U) [Mass/Vol]Ordered By: Parris Guzman on 09-04-2023 Protein (U) [Mass/Vol] Negative Negative [facility] Specific gravity Auto test s trip (U) [Rel density]Ordered By: Parris Guzman on 09-04-2023 Specific gravity (U) [Rel density] 1.017 1.001-1.03 0 [facility] Urine Cultureon 09-04-2023 Bacteria identified Cx Nom (U) 20,000 colonies/ml mixed bacterial skin contaminants 2 Days PERFORMED BY: [place] [address] PATHOLOGIST [employer] GURINDER DICK M.D. Normal [facility] Comment on above: Performed By: #### C UU, ADDONUAPLUS #### [address] Urine clarity by refractomet ry automatedOrdered By: Parris Guzman on 09-04-2023 Clarity Refractometry automated (U) Turbid Abnormal Clear [facility] Urine culture routineOrdered By: Parris Guzman on 09-04-2023 Bacteria identified Cx Nom (U) 2 Days [facility] Urine glucose measurement by automated test strip (mass/volume)Ordered By: Parris Guzman on 09-04-2023 Glucose Auto test strip (U) [Mass/Vol] Normal mg/dL Normal [facility] Urine hemoglobin detection b y automated test stripOrdered By: Parris Guzman on 09-04-2023 Hemoglobin Auto test strip Ql (U) Trace High Negative [facility] Urine leukocyte esterase det ection by automated test stripOrdered By: Parris Guzman on 09-04-2023 Leukocyte esterase Auto test strip Ql (U) Negative Negative [facility] Urine pH measurement by auto mated test stripOrdered By: Parris Guzman on 09-04-2023 pH (U) 5.0 [pH] 5.0-9.0 [facility] Comment on above: Order Comment: Name Collection Type:: Collection Method Unknown Performed By: #### C UU, ADDONUAPLUS #### [address] Urobilinogen Auto test strip (U) [Mass/Vol]Ordered By: Parris Guzman on 09-04-2023 Urobilinogen (U) [Mass/Vol] Normal mg/dL Normal [facility] C Urineon 08-28-2023 Bacteria identified Cx Nom (U) Microbiology PROCEDURE: Urine Culture [R1] SOURCE: U CleanCatch BODY SITE: COLLECTED DATE/TIME: 08/26/2023 17:52 EDT RECEIVED DATE/TIME: 08/26/2023 18:05 EDT START DATE/TIME: 08/26/2023 18:05 EDT FREE TEXT SOURCE: Gaston Horton DO, DO, Gaston Serrato FINAL REPORTS Final Report [] Verified Date/Time: 08/28/2023 09:24 EDT >100,000 cfu/ml Escherichia coli SUSCEPTIBILITY RESULTS __ LEGEND: S=Susceptible, N/R=Not Reported, Blank=Data not available, or drug not advisable or tested, I=Intermediate, ESBL=Extended spectrum beta-lactamase, R=Resistant, TFG=Thymidine-dependent strain, YAQUELIN=Beta-lactamase positive, OILVA=mcg/m;(mg/L), S*=Predicted susceptible interp, R*=Predicted resistant interp EC Antibiotic OLIVA Dilutn OLIVA Interp Amikacin <=16 S Ampicillin >16 R Ampicillin/ 16/8 I Sulbactam Aztreonam <=4 S Cefazolin 4 S Cefepime <=2 S Cefoxitin <=8 S Ceftazidime <=1 S Ceftazidime/ <=8 S Avibactam Ceftriaxone <=1 S Ciprofloxacin <=1 S Ertapenem <=0.5 S Gentamicin <=4 S Levofloxacin <=2 S Meropenem <=1 S Nitrofurantoin <=32 S Piperacillin/ <=16 S Tazobactam Tetracycline >8 R Tigecycline <=2 S Tobramycin <=4 S Trimethoprim/ >2/38 R Sulfa Performing Locations R1: This test was performed at: [facility] Laboratory, [address] [place] [address], [phone] , , Normal [facility] Comment on above: Performed By: #### 2 [id number] #### [facility] [address] [place] [address] BMPon 08-27-2023 Anion gap [Moles/Vol] 11 mmol/L Normal 6-16 [facility] Comment on above: Performed By: #### 2 [id number] #### [facility] [address] [place] [address] Calcium [Mass/Vol] 8.9 mg/dL Normal 8.9-11.1 [facility] Comment on above: Performed By: #### 2 [id number] #### [facility] [address] [place] [address] Chloride [Moles/Vol] 100 mmol/L Low 101-111 [facility] Comment on above: Performed By: #### 2 [id number] #### [facility] [address] [place] [address] CO2 [Moles/Vol] 31 mmol/L Normal 21-31 [facility] Comment on above: Performed By: #### 2 134352 #### [facility] [address] [place] [address] Creatinine [Mass/Vol] 0.9 mg/dL Normal 0.5-1.3 [facility] Comment on above: Performed By: #### 2 [id number] #### [facility] [address] [place] [address] Glucose [Mass/Vol] 128 mg/dL Normal 55-199 [facility] Comment on above: Performed By: #### 2 689309 #### [facility] [address] [place] [address] Potassium [Moles/Vol] 4.1 mmol/L Normal 3.5-5.3 [facility] Comment on above: Performed By: #### 2 139180 #### [facility] [address] [place] [address] Sodium [Moles/Vol] 138 mmol/L Normal 135-145 [facility] Comment on above: Performed By: #### 2 110796 #### [facility] [address] [place] [address] Urea nitrogen [Mass/Vol] 17 mg/dL Normal 5-21 [facility] Comment on above: Performed By: #### 2 [id number] #### [facility] [address] [place] [address] Urea nitrogen/Creatinine [Mass ratio] 19 No Units Normal 10-20 [facility] Comment on above: Performed By: #### 2 639162 #### [facility] [address] [place] [address] CBC w/ Auto Diffon 4 Basophils/100 WBC (Bld) 0.2 % Normal 0.0-2.0 [facility] Comment on above: Performed By: #### 2 604301 #### [facility] [address] [place] [address] Basophils/Leukocytes Auto (Bld) [Pure # fraction] 0.0 E9/L Normal 0.0-0.2 [facility] Comment on above: Performed By: #### 2 [id number] #### [facility] [address] [place] [address] Eosinophils (Bld) [#/Vol] 0.2 E9/L Normal 0.0-0.5 [facility] Comment on above: Performed By: #### 2 000773 #### [facility] [address] [place] [address] Eosinophils/100 WBC (Bld) 1.3 % Normal 0.0-8.0 [facility] Comment on above: Performed By: #### 2 [id number] #### [facility] [address] [place] [address] Erythrocyte distribution width (RBC) [Ratio] 14.4 % High 10.9-14.2 [facility] Comment on above: Performed By: #### 2 618164 #### [facility] [address] [place] [address] Hematocrit (Bld) [Volume fraction] 37.5 % Normal 34.0-46.0 [facility] Comment on above: Performed By: #### 2 623458 #### [facility] [address] [place] [address] Hemoglobin (Bld) [Mass/Vol] 12.9 g/dL Normal 12.0-16.0 [facility] Comment on above: Performed By: #### 2 097648 #### [facility] [address] [place] [address] Lymphocytes (Bld) [#/Vol] 2.9 E9/L Normal 1.0-4.0 [facility] Comment on above: Performed By: #### 2 265788 #### [facility] [address] [place] [address] Lymphocytes/100 WBC (Bld) 19.8 % Normal 14.0-50.0 [facility] Comment on above: Performed By: #### 2 618526 #### [facility] [address] [place] [address] MCH (RBC) [Entitic mass] 33.0 pg Normal 27.0-34.0 [facility] Comment on above: Performed By: #### 2 682977 #### [facility] [address] [place] [address] MCHC (RBC) [Mass/Vol] 34.3 g/dL Normal 31.4-36.0 [facility] Comment on above: Performed By: #### 2 030030 #### [facility] [address] [place] [address] MCV (RBC) [Entitic vol] 96.4 fL Normal 80.0-100.0 [facility] Comment on above: Performed By: #### 2 571090 #### [facility] [address] [place] [address] Monocytes (Bld) [#/Vol] 1.2 E9/L High 0.2-1.0 [facility] Comment on above: Performed By: #### 2 951621 #### [facility] [address] [place] [address] Neutrophils (Bld) [#/Vol] 10.3 E9/L High 2.0-7.5 [facility] Comment on above: Performed By: #### 2 503695 #### [facility] [address] [place] [address] Neutrophils/100 WBC (Bld) 70.7 % Normal 36.0-75.0 [facility] Comment on above: Performed By: #### 2 463370 #### [facility] [address] [place] [address] Platelet mean volume (Bld) [Entitic vol] 8.0 fL Normal 6.4-10.8 [facility] Comment on above: Performed By: #### 2 843550 #### [facility] [address] [place] [address] Platelets (Bld) [#/Vol] 225.0 E9/L Normal 150.0-500. 0 [facility] Comment on above: Performed By: #### 2 772669 #### [facility] [address] [place] [address] RBC (Bld) [#/Vol] 3.9 E12/L Low 4.3-5.9 [facility] Comment on above: Performed By: #### 2 542855 #### [facility] [address] [place] [address] WBC corrected for nucl RBC Auto (Bld) [#/Vol] 14.5 E9/L High 4.0-11.0 [facility] Comment on above: Performed By: #### 2 740702 #### [facility] [address] [place] [address] CHEMISTRYOrdered By: SYSTEM SYSTEM on 08-27-2023 Anion gap [Moles/Vol] 11 mmol/L Normal 6 - 16 mEq/L [facility] Calcium [Mass/Vol] 8.9 mg/dL Normal 8.9 - 11. 1 mg/dL [facility] Chloride [Moles/Vol] 100 mmol/L Low 101 - 1 11 mmol/L [facility] CO2 [Moles/Vol] 31 mmol/L Normal 21 - 31 mmol/L [facility] Creatinine [Mass/Vol] 0.9 mg/dL Normal 0.5 - 1.3 mg/dL [facility] eGFR 67 mL/min/1.73 m2 Normal >=59mL/min /1.73 m2 [facility] Glucose [Mass/Vol] 128 mg/dL Normal 55 - 199 mg/dL [facility] Potassium [Moles/Vol] 4.1 mmol/L Normal 3.5 - 5.3 mmol/L [facility] Sodium [Moles/Vol] 138 mmol/L Normal 135 - 145 mmol/L [facility] Urea nitrogen [Mass/Vol] 17 mg/dL Normal 5 - 21 mg/dL [facility] Urea nitrogen/Creatinine [Mass ratio] 19 mg/mg Normal 10 - 20 [facility] Discharge Instructionson Discharge Instructions [id number] Normal [facility] [employer] Education Videoon V[employer]geWell Education Video Opioids: Know What's Safe Patient Yes Normal [facility] [employer] Education Video Yes Managing Pain While You're in the Hospital Patient Normal [facility] [employer] Education Video Patient Yes Living With Chronic Pain Normal [facility] [employer] Education Video Patient Yes Chronic Pain: Treatments Other Than Medicine Normal [facility] GetWell Education Video Patient Yes Chronic Pain: How Medicines Can Help You Manage It Normal [facility] [employer] Education Video Yes Avoiding Infections in the Hospital Patient Normal [facility] HEMATOLOGYOrdered By: SYSTEM SYSTEM on 08-27-2023 Basophils/100 WBC (Bld) 0.2 % Normal 0.0 - 2.0 % [facility] Basophils/Leukocytes Auto (Bld) [Pure # fraction] 0.0 E9/L Normal 0.0 - 0.2 E9/L [facility] Eosinophils (Bld) [#/Vol] 0.2 E9/L Normal 0.0 - 0.5 E9/L [facility] Eosinophils/100 WBC (Bld) 1.3 % Normal 0.0 - 8.0 % [facility] Erythrocyte distribution width (RBC) [Ratio] 14.4 % High 10.9 - 14.2 % [facility] Hematocrit (Bld) [Volume fraction] 37.5 % Normal 34.0 - 46.0 % [facility] Hemoglobin (Bld) [Mass/Vol] 12.9 g/dL Normal 12.0 - 16.0 gm/dL [facility] Lymphocytes (Bld) [#/Vol] 2.9 E9/L Normal 1.0 - 4.0 E9/L [facility] Lymphocytes/100 WBC (Bld) 19.8 % Normal 14.0 - 50.0 % [facility] MCH (RBC) [Entitic mass] 33.0 pg Normal 27.0 - 34.0 pg [facility] MCHC (RBC) [Mass/Vol] 34.3 g/dL Normal 31.4 - 36.0 gm/dL [facility] MCV (RBC) [Entitic vol] 96.4 fL Normal 80.0 - 100.0 fL [facility] Monocytes (Bld) [#/Vol] 1.2 E9/L High 0.2 - 1.0 E9/L [facility] Monocytes/100 WBC (Bld) 8.0 % Normal 4.0 - 14.0 % [facility] Neutrophils (Bld) [#/Vol] 10.3 E9/L High 2.0 - 7.5 E9/L [facility] Neutrophils/100 WBC (Bld) 70.7 % Normal 36.0 - 75.0 % [facility] Platelet mean volume (Bld) [Entitic vol] 8.0 fL Normal 6.4 - 10.8 fL [facility] Platelets (Bld) [#/Vol] 225.0 E9/L Normal 150.0 - 500.0 E9/L [facility] RBC (Bld) [#/Vol] 3.9 E12/L Low 4.3 - 5.9 E12/L [facility] WBC corrected for nucl RBC Auto (Bld) [#/Vol] 14.5 E9/L High 4.0 - 11.0 E9/L [facility] Inpatient Clinical Summaryon 08-27-2023 Inpatient Clinical Summary [address] [address] Clinical Summary Person Information: Name: NICOLE LOMELI Age: 72 Years : 1950 Sex: Female PCP: PARRIS GUZMAN DO Marital Status: Phone: [phone] Race: White Ethnicity: Non- or Language: Kyrgyz MRN: [id number] Visit Id: Visit Reason: Nausea; Chest pain; chest pain Speciality: Acuity: Enc Type: Observation Med Service: Medical Arrival: 08/26/2023 03:50:45 Discharge: Dispo Type: Admitted as IP to this Hosp Address: [place] [facility] [id number] Provider Notes: Diagnosis: 1:Chest pain; 2:Leukocytosis; 3:Nausea; 4:Chronic respiratory failure; 5:COPD (chronic obstructive pulmonary disease); 6:CVA (cerebral vascular accident); 7:Chronic GERD; 8:Depression with anxiety; 9:Hyperlipidemia; 10:Urge incontinence; 11:UTI (urinary tract infection) Problems Active Chronic respiratory failure Hyperlipidemia History of CVA in adulthood Depression with anxiety Chronic GERD Obesity due to excess calories Urge incontinence Former smoker Urinary urgency Nocturia Urinary frequency Other post-traumatic urethral stricture, female Stress incontinence CVA (cerebral vascular accident) COPD (chronic obstructive pulmonary disease) Depression Hyperlipidemia Smoking Status: Former Smoker Functional Status: Sensory Deficits: History of Falls: Mobility Assistance Prior to Admission: Partial assistance ADLs: Independent Current Level of Assistance for Self-Care/Mobility: Cognitive Status: Oriented x 3 Allergies No Known Allergies Measurements: Height: 157.48 cm Weight: 81.9 kg Blood Pressure: 146 mmHg / 86 mmHg BMI: 33.71 kg/m2 Procedures No Procedures Documented Immunizations No Immunizations Documented This Visit Final Med List: acetaminophen-oxycodone (acetaminophen-oxycodone 325 mg-10 mg oral tablet) 1 Tablets By Mouth every 4 hours as needed for pain. albuterol (albuterol 0.083% Inh Kaylee 3 mL) 0.083% - 3mL dosing units Inhalation every 4 hours as needed. albuterol-ipratropium (Combivent Respimat) 1 Puffs Inhalation 4 times a day as needed Shortness of breath or wheezing. alprazolam (Xanax 0.25 mg Tab) 1 Tablets By Mouth 2 times a day as needed as needed for anxiety. aripiprazole (Abilify 5 mg Tab) 1 Tablets By Mouth every day. cephalexin (Keflex 500 mg Cap) 1 Capsules By Mouth 2 times a day. Refills: 0. clopidogrel (Plavix 75 mg Tab) 1 Tablets By Mouth every other day. ergocalciferol (Vitamin D 50,000 intl units (1.25 mg) oral capsule) 1 Capsules By Mouth Saturday. fenofibrate (TriCor 145 mg oral tablet) 1 Tablets By Mouth every day. fluconazole (fluconazole 200 mg Tab) 1 Tablets By Mouth every day for 14 Days. fluoxetine (Prozac 40 mg Cap) 1 Capsules By Mouth every day. fluticasone-vilanterol (Breo Ellipta 100 mcg-25 mcg inhalation powder) 1 Puffs Inhalation every day. 30 dose unit. Refills: 2. morphine (morphine 15 mg/8 hr oral tablet, extended release) 1 Tablets By Mouth every 12 hours. omeprazole (omeprazole 20 mg Cap-EC) 1 Capsules By Mouth every day. raloxifene (Evista 60 mg Tab) 1 Tablets By Mouth every day. senna (Senna 8.6 mg oral tablet) 2 Tablets By Mouth once a day (at bedtime). simvastatin (simvastatin 40 mg Tab) 1 Tablets By Mouth once a day (at bedtime). tizanidine (tiZANidine 2 mg Tab) 1 Tablets By Mouth every 8 hours as needed Spasm. Care Team Members: Attending Physician: Albert RODAS DO Consulting Physician: Reid Garcia MD; [facility] Cardio, XXXX Referring Physician: Follow up: With: Address: When: Reid Garcia MD, CAR Within 2 to 4 weeks Comments: Call for followup appointment With: Address: When: PARRIS GUZMAN DO, [place] [id number] Within 2 to 3 days Comments: Call for followup appointment Type Location Start Finish [facility] ([facility]) [facility]Pulmonary Rehab 09/05/2023 10:30 AM 09/05/2023 12:30 PM Confirmed Patient Education Information: Nonspecific Chest Pain, Adult, [id number]; Urinary Tract Infection, Adult, [id number] Normal [facility] Inpatient Patient Summaryon 08-27-2023 Inpatient Patient Summary NICOLE LOMELI :1950 Visit Date:08/26/2023 Inpatient Discharge Instructions Your Care Team Admitting Physician - Albert RODAS DO Consulting Physician - [facility] Cardio, XXXX Reid Garcia MD Reason for Your Visit CP Your Diagnosis Chest pain Leukocytosis Nausea Chronic respiratory failure COPD (chronic obstructive pulmonary disease) CVA (cerebral vascular accident) Chronic GERD Depression with anxiety Hyperlipidemia Urge incontinence UTI (urinary tract infection) Chest pain Nausea Tests Performed Urine Culture -- Results Pending -- Echo Transthoracic Complete XR Chest Single View Please visit your patient portal for your results or contact your primary care physician. This Is Your Medications List acetaminophen-oxycodone (acetaminophen-oxycodone 325 mg-10 mg oral tablet) albuterol (albuterol 0.083% Inh Kaylee 3 mL) albuterol-ipratropium (Combivent Respimat) alprazolam (Xanax 0.25 mg Tab) aripiprazole (Abilify 5 mg Tab) cephalexin (Keflex 500 mg Cap) clopidogrel (Plavix 75 mg Tab) ergocalciferol (Vitamin D 50,000 intl units (1.25 mg) oral capsule) fenofibrate (TriCor 145 mg oral tablet) fluconazole (fluconazole 200 mg Tab) fluoxetine (Prozac 40 mg Cap) fluticasone-vilanterol (Breo Ellipta 100 mcg-25 mcg inhalation powder) morphine (morphine 15 mg/8 hr oral tablet, extended release) omeprazole (omeprazole 20 mg Cap-EC) raloxifene (Evista 60 mg Tab) senna (Senna 8.6 mg oral tablet) simvastatin (simvastatin 40 mg Tab) tizanidine (tiZANidine 2 mg Tab) Procedure History Cardiac catheterization, left heart (12/09/2019), trans-oburator mid uretheral sling bladder suspension (10/15/2018), Appendectomy, Cholecystectomy, Thumb. Discharge Vitals Temperature (Oral) 36.6 ?C Heart Rate (Monitored) 88 Respiratory Rate 16 Blood Pressure 146/86 Height 157.48 cm Weight 81.9 kg BMI 33.71 What to do next Instructions From Your Doctor Event Name Event Result Pending Diagnostic Test Results Urine culture Pharmacy Information [facility] Discharge Instructions Please return to ER if symptoms change or worsen. Please take antibiotics as prescribed. Please follow-up with PCP or call hospital in 2 days to check urine culture Previously Scheduled Follow-Up Appointments 2023 10:30 AM EDT Where: [facility] New Follow Up Appointments after Discharge Follow Up with Radha MORFIN, ISI Waller When: Within 2 to 4 weeks Comments: Call for followup appointment Where: Follow Up with PARRIS GUZMAN DO, FAM When: Within 2 to 3 days Comments: Call for followup appointment Where: [facility] SHARON AMORShikha, [facility] [address] [place] [address]- Medications What How Much When Instructions Next Dose New cephalexin (Keflex 500 mg Cap) 1 Capsules By Mouth 2 times a day Pickup at [facility] 08/26 9 pm Unchanged acetaminophen-oxycodone (acetaminophen-oxycodone 325 mg-10 mg oral tablet) 1 Tablets By Mouth Every 4 hours as needed for for pain as needed and as prescribed Unchanged albuterol (albuterol 0.083% Inh Kaylee 3 mL) 0.083% - 3mL dosing units Inhalation Every 4 hours as needed as needed and as prescribed Unchanged albuterol-ipratropium (Combivent Respimat) 1 Puffs Inhalation 4 times a day as needed for Shortness of breath or wheezing as needed and as prescribed Unchanged alprazolam (Xanax 0.25 mg Tab) 1 Tablets By Mouth 2 times a day as needed for as needed for anxiety as needed and as prescribed Unchanged aripiprazole (Abilify 5 mg Tab) 1 Tablets By Mouth Every day 08/27 am Unchanged clopidogrel (Plavix 75 mg Tab) 1 Tablets By Mouth Every other day 08/27 Unchanged ergocalciferol (Vitamin D 50,000 intl units (1.25 mg) oral capsule) 1 Capsules By Mouth 08/31 am Unchanged fenofibrate (TriCor 145 mg oral tablet) 1 Tablets By Mouth Every day 08/27 am Unchanged fluconazole (fluconazole 200 mg Tab) 1 Tablets By Mouth Every day Duration: 14 Days 08/27 9 am Unchanged fluoxetine (Prozac 40 mg Cap) 1 Capsules By Mouth Every day 08/27 am Unchanged fluticasone-vilanterol (Breo Ellipta 100 mcg-25 mcg inhalation powder) 1 Puffs Inhalation Every day 30 dose unit am Unchanged morphine (morphine 15 mg/ 8 hr oral tablet, extended release) 1 Tablets By Mouth Every 12 hours 08/26 Unchanged omeprazole (omeprazole 20 mg Cap-EC) 1 Capsules By Mouth Every day 08/27 9 am Unchanged raloxifene (Evista 60 mg Tab) 1 Tablets By Mouth Every day 08/27 9 am Unchanged senna (Senna 8.6 mg oral tablet) 2 Tablets By Mouth Once a day (at bedtime) 08/26 9 pm Unchanged simvastatin (simvastatin 40 mg Tab) 1 Tablets By Mouth Once a day (at bedtime) 08/26 9 pm Unchanged tizanidine (tiZANidine 2 mg Tab) 1 Tablets By Mouth Every 8 hours as needed for Spasm as needed and as prescribed Pharmacy Information [facility]: [address] [place], (more content not included)... Normal [facility] Inpatient Patient Summary [place] [id number] Patient Discharge Instructions PERSON INFORMATION Name: NICOLE LOMELI Date of : 1950 Current Date: 08/27/2023 10:19:45 PHYSICIANS Admitting Physician: Albert RODAS DO Primary Care Physician: PARRIS GUZMAN DO PCP Comment: Discharge Diagnosis: 1:Chest pain; 2:Leukocytosis; 3:Nausea; 4:Chronic respiratory failure; 5:COPD (chronic obstructive pulmonary disease); 6:CVA (cerebral vascular accident); 7:Chronic GERD; 8:Depression with anxiety; 9:Hyperlipidemia; 10:Urge incontinence; 11:UTI (urinary tract infection) Condition at Discharge: Improved NICOLE LOMELI has been given the following list of follow-up instructions, prescriptions, and patient education materials: PATIENT FOLLOW-UP INFORMATION Diet: Discharge Activity: Discharge Restrictions: Wound Care Instructions: Remove Your Dressing In Days Call Your Doctor For: IF UNABLE TO CONTACT YOUR PHYSICIAN AND YOU FEEL IT IS AN EMERGENCY, GO TO THE NEAREST EMERGENCY ROOM OR CALL 911 Home Treatment: Devices/Equipment: Oxygen, Walker Special Services: Additional Instructions: Please return to ER if symptoms change or worsen. Please take antibiotics as prescribed. Please follow-up with PCP or call hospital in 2 days to check urine culture Primary Care Physician to provide the following pending test results: Urine culture Follow up: With: Address: When: Radha MORFINReid, CAR Within 2 to 4 weeks Comments: Call for followup appointment With: Address: When: THOMAS HENDRIX, PARRIS M, [address], [facility] [address] [place] [address] Within 2 to 3 days Comments: Call for followup appointment In the event that this physician does not participate in your insurance network, please consult with your insurance company to find a nearby participating provider. Type Location Start [facility] Pulmonary Rehab ([facility]) FT.Pulmonary Rehab 09/05/2023 10:30 AM 09/05/2023 12:30 PM Confirmed Comment: YANI Kim ROSALIE A, have received the attached patient education materials/instructions and have verbalized understanding: Patient Signature ____ Date Clinican/Nurse Signature Date HERE ARE THE MEDICATION CHANGES THAT OCCURRED DURING YOUR HOSPITAL STAY New Medications [facility] 1987, [address] [place], [place] [id number], [phone] cephalexin (Keflex 500 mg Cap) 1 Capsules By Mouth 2 times a day. Refills: 0. Last Dose: Next Dose: Medications to Continue with No Changes Other Medications acetaminophen-oxycodone (acetaminophen-oxycodone 325 mg-10 mg oral tablet) 1 Tablets By Mouth every 4 hours as needed for pain. Last Dose: Next Dose: albuterol (albuterol 0.083% Inh Kaylee 3 mL) 0.083% - 3mL dosing units Inhalation every 4 hours as needed. Last Dose: Next Dose: albuterol-ipratropium (Combivent Respimat) 1 Puffs Inhalation 4 times a day as needed Shortness of breath or wheezing. Last Dose: Next Dose: alprazolam (Xanax 0.25 mg Tab) 1 Tablets By Mouth 2 times a day as needed as needed for anxiety. Last Dose: Next Dose: aripiprazole (Abilify 5 mg Tab) 1 Tablets By Mouth every day. Last Dose: Next Dose: clopidogrel (Plavix 75 mg Tab) 1 Tablets By Mouth every other day., takes every other day Last Dose: Next Dose: ergocalciferol (Vitamin D 50,000 intl units (1.25 mg) oral capsule) 1 Capsules By Mouth Saturday. Last Dose: Next Dose: fenofibrate (TriCor 145 mg oral tablet) 1 Tablets By Mouth every day. Last Dose: Next Dose: fluconazole (fluconazole 200 mg Tab) 1 Tablets By Mouth every day for 14 Days. Last Dose: Next Dose: fluoxetine (Prozac 40 mg Cap) 1 Capsules By Mouth every day. Last Dose: Next Dose: fluticasone-vilanterol (Breo Ellipta 100 mcg-25 mcg inhalation powder) 1 Puffs Inhalation every day. 30 dose unit. Refills: 2. Last Dose: Next Dose: morphine (morphine 15 mg/8 hr oral tablet, extended release) 1 Tablets By Mouth every 12 hours. Last Dose: Next Dose: omeprazole (omeprazole 20 mg Cap-EC) 1 Capsules By Mouth every day. Last Dose: Next Dose: raloxifene (Evista 60 mg Tab) 1 Tablets By Mouth every day. Last Dose: Next Dose: senna (Senna 8.6 mg ora (more content not included)... [facility] Interdisciplinary Note - Shlomo e Manageron 08-27-2023 Interdisciplinary Note - Analog Design Engineer CRM to room to discuss DC planning. Patient is awake, alert and oriented. Patient is from home with her spouse. She will have a ride at DC. Patient verified PCP , DME and insurance. Patient is an observation for CP. Patient is assigned to Dr Horton, see notes. Patient has cardiology on case. Patient did have an ECHO ordered this stay. Patient denied CP at this time to CRM. Patient is on oxygen, she wear 4L/nc at home. Patient declined need for DME, HH or PM. She uses a rollator at home. Patient was provided CRM contact, bert board updated. CRM following. CRM will get updates from Dr Horton at 10 Am [facility] Comment on above: Result Comment: Elec tronically Signed By: Elvira Chin\.br\Date and Time Signed: 08/27/23 08:41 EDT Monitor Recordon 08-27-2023 Monitor Record [id number] [facility] Monitor Record [id number]#[id number] [facility] Monitor Record [id number]#[id number] [facility] Patient Education - Texton 0 08-27-2023 Patient Education - Text Gastroenterology Nonspecific Chest Pain Chest pain can be caused by many different conditions. Some causes of chest pain can be life-threatening. These will require treatment right away. Serious causes of chest pain include: ? Heart attack. ? A tear in the body's main blood vessel. ? Redness and swelling (inflammation) around your heart. ? Blood clot in your lungs. Other causes of chest pain may not be so serious. These include: ? Heartburn. ? Anxiety or stress. ? Damage to bones or muscles in your chest. ? Lung infections. Chest pain can feel like: ? Pain or discomfort in your chest. ? Crushing, pressure, aching, or squeezing pain. ? Burning or tingling. ? Dull or sharp pain that is worse when you move, cough, or take a deep breath. ? Pain or discomfort that is also felt in your back, neck, jaw, shoulder, or arm, or pain that spreads to any of these areas. It is hard to know whether your pain is caused by something that is serious or something that is not so serious. So it is important to see your doctor right away if you have chest pain. Follow these instructions at home: Medicines ? Take [id number] and prescription medicines only as told by your doctor. ? If you were prescribed an antibiotic medicine, take it as told by your doctor. Do not stop taking the antibiotic even if you start to feel better. Lifestyle ? Rest as told by your doctor. ? Do not use any products that contain nicotine or tobacco, such as cigarettes, e-cigarettes, and chewing tobacco. If you need help quitting, ask your doctor. ? Do not drink alcohol. ? Make lifestyle changes as told by your doctor. These may include: ? Getting regular exercise. Ask your doctor what activities are safe for you. ? Eating a heart-healthy diet. A diet and nutrition therapist (dietitian) can help you to learn healthy eating options. ? Staying at a healthy weight. ? Treating diabetes or high blood pressure, if needed. ? Lowering your stress. Activities such as yoga and relaxation techniques can help. General instructions ? Pay attention to any changes in your symptoms. Tell your doctor about them or any new symptoms. ? Avoid any activities that cause chest pain. ? Keep all follow-up visits as told by your doctor. This is important. You may need more testing if your chest pain does not go away. Contact a doctor if: ? Your chest pain does not go away. ? You feel depressed. ? You have a fever. Get help right away if: ? Your chest pain is worse. ? You have a cough that gets worse, or you cough up blood. ? You have very bad (severe) pain in your belly (abdomen). ? You pass out (faint). ? You have either of these for no clear reason: ? Sudden chest discomfort. ? Sudden discomfort in your arms, back, neck, or jaw. ? You have shortness of breath at any time. ? You suddenly start to sweat, or your skin gets clammy. ? You feel sick to your stomach (nauseous). ? You throw up (vomit). ? You suddenly feel lightheaded or dizzy. ? You feel very weak or tired. ? Your heart starts to beat fast, or it feels like it is skipping beats. These symptoms may be an emergency. Do not wait to see if the symptoms will go away. Get medical help right away. Call your local emergency services (911 in the [place] Do not drive yourself to the hospital. Summary ? Chest pain can be caused by many different conditions. The cause may be serious and need treatment right away. If you have chest pain, see your doctor right away. ? Follow your doctor's instructions for taking medicines and making lifestyle changes. ? Keep all follow-up visits as told by your doctor. This includes visits for any further testing if your chest pain does not go away. ? Be sure to know the signs that show that your condition has become worse. Get help right away if you have these symptoms. This information is not intended to replace advice given to you by your health care provider. Make sure you discuss any questions you have with your health care provider. Document Revised: 06/08/2021 Document Reviewed: 06/08/2021 [employer] Patient Education ? 2022 [employer]. Obstetrics and Gynecology Urinary Tract Infection, Adult A urinary tract infection (UTI) is an infection of any part of the urinary tract. The urinary tract includes: ? The kidneys. ? The ureters. ? The bladder. ? The urethra. These organs make, store, and get rid of pee (urine) in the body. What are the causes? This infection is caused by germs (bacteria) in your genital area. These germs grow and cause swelling (inflammation) of your urinary tract. What increases the risk? The following factors may make you more likely to develop this condition: ? Using a small, thin tube (catheter) to drain pee. ? Not being able to control when you pee or poop (incontinence). ? Being female. If you are female, these things can increase the ri (more content not included)... Normal [facility] eGFRon 08-27-2023 eGFR 67 mL/min/1.73 m2 Normal >=59 [facility] Comment on above: Order Comment: Order added by Discern Expert. Performed By: #### 1 [id number] ####[facility] [address] [place] [address] BMPon 08-26-2023 Anion gap [Moles/Vol] 10 mmol/L Normal 6-16 [facility] Comment on above: Performed By: #### 2 [id number] #### [facility] [address] [place] [address] Calcium [Mass/Vol] 9.1 mg/dL Normal 8.9-11.1 [facility] Comment on above: Performed By: #### 2 [id number] #### [facility] [address] [place] [address] Chloride [Moles/Vol] 100 mmol/L Low 101-111 [facility] Comment on above: Performed By: #### 2 [id number] #### [facility] [address] [place] [address] CO2 [Moles/Vol] 33 mmol/L High 21-31 [facility] Comment on above: Performed By: #### 2 [id number] #### [facility] [address] [place] [address] Creatinine [Mass/Vol] 1.0 mg/dL Normal 0.5-1.3 [facility] Comment on above: Performed By: #### 2 [id number] #### [facility] [address] [place] [address] Glucose [Mass/Vol] 84 mg/dL Normal 55-199 [facility] Comment on above: Performed By: #### 2 [id number] #### [facility] [address] [place] [address] Potassium [Moles/Vol] 4.2 mmol/L Normal 3.5-5.3 [facility] Comment on above: Performed By: #### 2 [id number] #### [facility] [address] [place] [address] Sodium [Moles/Vol] 139 mmol/L Normal 135-145 [facility] Comment on above: Performed By: #### 2 [id number] #### [facility] [address] [place] [address] Urea nitrogen [Mass/Vol] 18 mg/dL Normal 5-21 [facility] Comment on above: Performed By: #### 2 [id number] #### [facility] [address] [place] [address] Urea nitrogen/Creatinine [Mass ratio] 18 No Units Normal 10-20 [facility] Comment on above: Performed By: #### 2 [id number] #### [facility] [address] [place] [address] CBC w/ Auto Diffon 4 Basophils/100 WBC (Bld) 1.0 % Normal 0.0-2.0 [facility] Comment on above: Performed By: #### 2 [id number] #### [facility] [address] [place] [address] Basophils/Leukocytes Auto (Bld) [Pure # fraction] 0.2 E9/L Normal 0.0-0.2 [facility] Comment on above: Performed By: #### 2 [id number] #### [facility] [address] [place] [address] Eosinophils (Bld) [#/Vol] 0.2 E9/L Normal 0.0-0.5 [facility] Comment on above: Performed By: #### 2 [id number] #### [facility] [address] [place] [address] Eosinophils/100 WBC (Bld) 1.0 % Normal 0.0-8.0 [facility] Comment on above: Performed By: #### 2 [id number] #### [facility] [address] [place] [address] Erythrocyte distribution width (RBC) [Ratio] 14.2 % Normal 10.9-14.2 [facility] Comment on above: Performed By: #### 2 [id number] #### [facility] [address] [place] [address] Hematocrit (Bld) [Volume fraction] 35.7 % Normal 34.0-46.0 [facility] Comment on above: Performed By: #### 2 [id number] #### [facility] [address] [place] [address] Hemoglobin (Bld) [Mass/Vol] 11.9 g/dL Low 12.0-16.0 [facility] Comment on above: Performed By: #### 2 [id number] #### [facility] [address] [place] [address] Lymphocytes (Bld) [#/Vol] 4.1 E9/L High 1.0-4.0 [facility] Comment on above: Performed By: #### 2 [id number] #### [facility] [address] [place] [address] Lymphocytes/100 WBC (Bld) 22.6 % Normal 14.0-50.0 [facility] Comment on above: Performed By: #### 2 [id number] #### [facility] [address] [place] [address] MCH (RBC) [Entitic mass] 30.6 pg Normal 27.0-34.0 [facility] Comment on above: Performed By: #### 2 061708 #### [facility] [address] [place] [address] MCHC (RBC) [Mass/Vol] 33.3 g/dL Normal 31.4-36.0 [facility] Comment on above: Performed By: #### 2 [id number] #### [facility] [address] [place] [address] MCV (RBC) [Entitic vol] 92.1 fL Normal 80.0-100.0 [facility] Comment on above: Performed By: #### 2 214383 #### [facility] [address] [place] [address] Monocytes (Bld) [#/Vol] 1.2 E9/L High 0.2-1.0 [facility] Comment on above: Performed By: #### 2 407960 #### [facility] [address] [place] [address] Neutrophils (Bld) [#/Vol] 12.5 E9/L High 2.0-7.5 [facility] Comment on above: Performed By: #### 2 [id number] #### [facility] [address] [place] [address] Neutrophils/100 WBC (Bld) 68.6 % Normal 36.0-75.0 [facility] Comment on above: Performed By: #### 2 [id number] #### [facility] [address] [place] [address] Platelet mean volume (Bld) [Entitic vol] 7.7 fL Normal 6.4-10.8 [facility] Comment on above: Performed By: #### 2 [id number] #### [facility] [address] [place] [address] Platelets (Bld) [#/Vol] 212.0 E9/L Normal 150.0-500. 0 [facility] Comment on above: Performed By: #### 2 [id number] #### [facility] [address] [place] [address] RBC (Bld) [#/Vol] 3.9 E12/L Low 4.3-5.9 [facility] Comment on above: Performed By: #### 2 091496 #### [facility] [address] [place] [address] WBC corrected for nucl RBC Auto (Bld) [#/Vol] 18.2 E9/L High 4.0-11.0 [facility] Comment on above: Performed By: #### 2 430344 #### [facility] [address] [place] [address] Basophils/100 WBC (Bld) 0.2 % Normal 0.0-2.0 [facility] Comment on above: Performed By: #### 2 124644 #### [facility] [address] [place] [address] Basophils/Leukocytes Auto (Bld) [Pure # fraction] 0.0 E9/L Normal 0.0-0.2 [facility] Comment on above: Performed By: #### 2 424681 #### [facility] [address] [place] [address] Eosinophils (Bld) [#/Vol] 0.2 E9/L Normal 0.0-0.5 [facility] Comment on above: Performed By: #### 2 655878 #### [facility] [address] [place] [address] Eosinophils/100 WBC (Bld) 1.3 % Normal 0.0-8.0 [facility] Comment on above: Performed By: #### 2 [id number] #### [facility] [address] [place] [address] Erythrocyte distribution width (RBC) [Ratio] 14.2 % Normal 10.9-14.2 [facility] Comment on above: Performed By: #### 2 [id number] #### [facility] [address] [place] [address] Hematocrit (Bld) [Volume fraction] 37.7 % Normal 34.0-46.0 [facility] Comment on above: Performed By: #### 2 347244 #### [facility] [address] [place] [address] Hemoglobin (Bld) [Mass/Vol] 12.5 g/dL Normal 12.0-16.0 [facility] Comment on above: Performed By: #### 2 [id number] #### [facility] [address] [place] [address] Lymphocytes (Bld) [#/Vol] 5.2 E9/L High 1.0-4.0 [facility] Comment on above: Performed By: #### 2 660185 #### [facility] [address] [place] [address] Lymphocytes/100 WBC (Bld) 29.7 % Normal 14.0-50.0 [facility] Comment on above: Performed By: #### 2 494874 #### [facility] [address] [place] [address] MCH (RBC) [Entitic mass] 30.9 pg Normal 27.0-34.0 [facility] Comment on above: Performed By: #### 2 048519 #### [facility] [address] [place] [address] MCHC (RBC) [Mass/Vol] 33.1 g/dL Normal 31.4-36.0 [facility] Comment on above: Performed By: #### 2 108502 #### [facility] [address] [place] [address] MCV (RBC) [Entitic vol] 93.3 fL Normal 80.0-100.0 [facility] Comment on above: Performed By: #### 2 268280 #### [facility] [address] [place] [address] Monocytes (Bld) [#/Vol] 1.3 E9/L High 0.2-1.0 [facility] Comment on above: Performed By: #### 2 266161 #### [facility] [address] [place] [address] Neutrophils (Bld) [#/Vol] 10.7 E9/L High 2.0-7.5 [facility] Comment on above: Performed By: #### 2 564113 #### [facility] [address] [place] [address] Neutrophils/100 WBC (Bld) 61.4 % Normal 36.0-75.0 [facility] Comment on above: Performed By: #### 2 907251 #### [facility] [address] [place] [address] Platelet mean volume (Bld) [Entitic vol] 7.3 fL Normal 6.4-10.8 [facility] Comment on above: Performed By: #### 2 [id number] #### [facility] [address] [place] [address] Platelets (Bld) [#/Vol] 229.0 E9/L Normal 150.0-500. 0 [facility] Comment on above: Performed By: #### 2 053695 #### [facility] [address] [place] [address] RBC (Bld) [#/Vol] 4.0 E12/L Low 4.3-5.9 [facility] Comment on above: Performed By: #### 2 [id number] #### [facility] [address] [place] [address] WBC corrected for nucl RBC Auto (Bld) [#/Vol] 17.4 E9/L High 4.0-11.0 [facility] Comment on above: Performed By: #### 2 [id number] #### [facility] [address] [place] [address] CHEMISTRYOrdered By: SYSTEM SYSTEM on 08-26-2023 Troponin 4.30 pg/mL Low 10.10 - 27.10 pg/mL [facility] Comment on above: Interpretive Data: T he 95% CI (Confidence Interval) PPV (Positive Predictive Value) for myocardial infarction in females is 38 pg/mL, in males 51 pg/mL. The results should be used in conjunction with clinical conditions of myocardial infarction. (Access High Sensitivity Troponin I Instructions For Use, [employer], November 2017) CRP [Mass/Vol] 0.9 mg/dL Normal <=1.9mg/dL [facility] Procalcitonin 0.07 ng/mL Normal 0.00 - 0.50 ng/mL [facility] Comment on above: Interpretive Data: < 0.5 ng/mL Low risk of severe sepsis and/or shock >2.0 ng/mL High risk of severe sepsis and/or shock Concentrations under 0.5 ng/mL do not exclude local infections or systemic infections in their initial stages (e.g.. under six hours from onset of illness). PCT concentrations between 0.5 and 2.0 ng/mL should be interpreted with consideration of the patient's history. In this range, it is recommended to retest PCT within 6 to 24 hours. Troponin 3.90 pg/mL Low 10.10 - 27.10 pg/mL [facility] Comment on above: Interpretive Data: T he 95% CI (Confidence Interval) PPV (Positive Predictive Value) for myocardial infarction in females is 38 pg/mL, in males 51 pg/mL. The results should be used in conjunction with clinical conditions of myocardial infarction. (Access High Sensitivity Troponin I Instructions For Use, [employer], November 2017) Troponin 3.90 pg/mL Low 10.10 - 27.10 pg/mL [facility] Comment on above: Interpretive Data: T he 95% CI (Confidence Interval) PPV (Positive Predictive Value) for myocardial infarction in females is 38 pg/mL, in males 51 pg/mL. The results should be used in conjunction with clinical conditions of myocardial infarction. (Access High Sensitivity Troponin I Instructions For Use, [employer], November 2017) Anion gap [Moles/Vol] 10 mmol/L Normal 6 - 16 mEq/L [facility] Calcium [Mass/Vol] 9.1 mg/dL Normal 8.9 - 11. 1 mg/dL [facility] Chloride [Moles/Vol] 100 mmol/L Low 101 - 1 11 mmol/L [facility] CO2 [Moles/Vol] 33 mmol/L High 21 - 31 mmol/L [facility] Creatinine [Mass/Vol] 1.0 mg/dL Normal 0.5 - 1.3 mg/dL [facility] eGFR 59 mL/min/1.73 m2 Normal >=59mL/min /1.73 m2 [facility] Glucose [Mass/Vol] 84 mg/dL Normal 55 - 199 mg/dL [facility] Potassium [Moles/Vol] 4.2 mmol/L Normal 3.5 - 5.3 mmol/L [facility] Sodium [Moles/Vol] 139 mmol/L Normal 135 - 145 mmol/L [facility] Urea nitrogen [Mass/Vol] 18 mg/dL Normal 5 - 21 mg/dL [facility] Urea nitrogen/Creatinine [Mass ratio] 18 mg/mg Normal 10 - 20 [facility] COAGULATIONOrdered By: Bin Hartley on 08-26-2023 aPTT Coag (PPP) [Time] 26.8 s Normal 25.1 - 36.5 second(s) [facility] Comment on above: Interpretive Data: P arameter 15 days - 4 weeks 1 - 5 months 6 - 11 months 1 - 5 years 6 - 10 years 11 - 17 years PTT Mean: 35.4 (27.6-45.6) Mean: 33.5 (24.8-40.7) Mean: 32.4 (25.1-40.7) Mean: 31.6 (24.0-39.2) Mean: 31.6 (26.9-38.7) Mean: 31.0 (24.6-38.4) Pediatric Reference ranges were obtained from a study by Rene Maloney et al. prepared from 1437 samples obtained at 7 different centers using the same coagulation reagent and instrumentation as [facility]. Currently there are no coagulation studies available worldwide for children to 14 days, and no normal ranges. Heparin therapeutic range (represented by Anti-Factor Xa activity of 0.2 - 0.4 U/mL) corresponds to PTT of 56.6 - 109.0 sec. INR Coag (PPP) [Relative time] 0.90 {INR} Invalid Interpretation Code [facility] Comment on above: Interpretive Data: I NR results are specifically intended to assess patients stabilized on long-term Anticoagulation therapy suggested INR s Less Intensive Anticoagulation 2.0 3.0 Conventional Range 3.0 4.5 PT Coag (PPP) [Time] 10.1 s Normal 9.4 - 1 2.5 second(s) [facility] Comment on above: Interpretive Data: 1 5 days - 4 weeks 1 - 5 months 6 -11 months 1 5 years 6 10 years 11 -17 years Mean: 11.2 (9.5 12.6) Mean: 11.0 (9.7 12.8) Mean: 11.0 (9.8 13.0) Mean: 11.3 (9.9 13.4) Mean: 11.7 (10.0 14.6) Mean: 11.8 (10.0 - 14.1) Pediatric Reference ranges were obtained from a study by Rene Malnoey et al. prepared from 1437 samples obtained at 7 different centers using the same coagulation reagent and instrumentation as [facility]. Currently there are no coagulation studies available worldwide for children to 14 days, and no normal ranges. CRPon 08-26-2023 CRP [Mass/Vol] 0.9 mg/dL Normal <=1.9 [facility] Comment on above: Performed By: #### 2 [id number] #### [facility] [address] [place] [address] Consent for Treatmenton 08-07 Consent for Treatment [id number] Normal [facility] Consultation Noteon 08-26-19 Consultation Note Chief Complaint Left sided chest pain awoke pt. from sleep. 09/15, radiated to jaw and back. non productive cough recently. History of Present Illness Patient is a 72-year-old female who was admitted to the hospital due to chest pain. She presented to the ER in the plate conditioner with this chest pain. It was sudden onset that woke her up in the middle the night and radiated to back and jaw. Patient has history of minimally obstructive CAD seen on [facility] with Dr. Gordon in 12/2019. Most recent echo from 11/25/2022 showed normal EF. Patient quit smoking 10 years ago, but does have history of COPD with use of 4 L of oxygen at home at baseline. Patient resting comfortably when examined in the ER. She states she is no longer having any chest pains. Patient reports that her breathing is at her baseline. Patient has had negative serial troponin ER. Potassium also noted range. Patient reports she is not having any swelling in her lower extremities, no dizziness/lightheadedness , no heart palpitations. Echo been ordered for patient for further evaluation Review of Systems ROS - Provider Constitutional: no fever, no chills, no sweats, no weakness Respiratory: no shortness of breath, no cough Cardiovascular: no chest pain currently Neuro: no dizziness. no loss of consciousness Physical Exam Vitals & Measurements T: 36.7 ?C(Oral) HR: 82(Monitored) RR: 11 BP: 115/57 SpO2: 96% HT: 157.48 cm WT: 83 kg General: alert, no acute distress Cardiovascular: regular rate and rhythm, no murmur normal peripheral perfusion Respiratory: Lungs CTAB, respirations non labored Extremities: no edema left lower extremity. no edema right lower extremity Neurological: oriented x 4, LOC appropriate for age, speech normal Skin: Warm, dry, intact- no rash or concerning lesions Cardiac Diagnostics [facility] with Dr. Gordon on 12/09/2019: CONCLUSIONS: 1. Minimal nonobstructive disease of the proximal left circumflex but essentially normal coronary arteries. 2. Normal left ventricular size and function with an ejection fraction of 65%. 3. Normal left ventricular end-diastolic pressure. 4. Patient tolerated procedure well, no complications. [1] (11/27/2022 13:30 EDT Echo Transthoracic Complete) Interpretation Summary Ejection Fraction = 60-65%. Normal LV and RV. No significant valve disease. Normal estimated PA pressure. Impaired diastolic relaxation. No change from prior. [2] Assessment/Plan 1. Chest pain (R07.9: Chest pain, unspecified) Does not appear to be ACS. Similar EKG to the past. Only had minimally obstructive heart disease in 2019. Will await echo results. Previous echo from 11/2022 was grossly normal 2. Leukocytosis (D72.829: Elevated white blood cell count, unspecified) 3. Nausea (R11.0: Nausea) 4. Chronic respiratory failure (J96.10: Chronic respiratory failure, unspecified whether with hypoxia or hypercapnia) 5. COPD (chronic obstructive pulmonary disease) (J44.9: Chronic obstructive pulmonary disease, unspecified) 6. CVA (cerebral vascular accident) (I63.9: Cerebral infarction, unspecified) 7. Chronic GERD (K21.9: Gastro-esophageal reflux disease without esophagitis) 8. Depression with anxiety (F41.8: Other specified anxiety disorders) 9. Hyperlipidemia (E78.5: Hyperlipidemia, unspecified) Continue with simvastatin and fenofibrate. 10. Urge incontinence (N39.41: Urge incontinence) Attestation Patient discussed with Dr. Garcia, and he is in agreement with plan Problem List/Past Medical History Ongoing Chronic GERD Chronic respiratory failure COPD (chronic obstructive pulmonary disease) CVA (cerebral vascular accident) Depression Depression with anxiety Former smoker History of CVA in adulthood Hyperlipidemia Hyperlipidemia Nocturia Obesity due to excess calories Other post-traumatic urethral stricture, female Stress incontinence Urge incontinence Urinary frequency Urinary urgency Historical GERD (gastroesophageal reflux disease) Smoker Procedure/Surgical History Cardiac catheterization, left heart (12/09/2019), trans-oburator mid uretheral sling bladder suspension (10/15/2018), Appendectomy, Cholecystectomy, Thumb. Medications Inpatient No active inpatient medications Home Abilify 5 mg Tab, 5 mg= 1 tab(s), Oral, Daily acetaminophen-oxycodone 325 mg-10 mg oral tablet, 1 tab(s), Oral, q4hr, PRN albuterol 0.083% Inh Kaylee 3 mL, 0.083% - 3mL dosing units, Inhalation, q4hr, PRN Breo Ellipta 100 mcg-25 mcg inhalation powder, 1 puff(s), Inhalation, Daily, 2 refills Combivent Respimat, 1 puff(s), Inhalation, QID, PRN Evista 60 mg Tab, 60 mg= 1 tab(s), Oral, Daily fluconazole 200 mg Tab, 200 mg= 1 tab(s), Oral, Daily morphine 15 mg/8 hr oral tablet, extended release, 15 mg= 1 tab(s), Oral, q12hr omeprazole 20 mg Cap-EC, 20 mg= 1 cap(s), Oral, Daily Plavix 75 mg Tab, 75 mg= 1 tab(s), Oral, Every other day Prozac 40 mg Cap, 40 mg= 1 cap(s), Oral, Daily Senna 8.6 mg oral tablet, 17.2 (more content not included)... Normal [facility] Comment on above: Result Comment: Elec tronically Signed By: Angélica VASQUES, Cheko Wesley\.br\Date and Time Signed: 08/26/23 12:08 EDT\.br\Electronically Co-Signed By: Radha MORFIN, Reid Junior\.br\Date and Time Co-Signed: 08/26/23 13:24 EDT ED Clinical Summaryon 2023 ED Clinical Summary (Inserted Image. Lynda ble to display) [place] [id number] ED Clinical Summary Person Information Name: NICOLE LOMELI Niyah/[facility] Age: 72 Years : 1950 Sex: Female Language: Kyrgyz PCP: PARRIS GUZMAN DO Marital Status: Phone: [phone] Visit Id: Visit Reason: Nausea; Chest pain; chest pain Speciality: Acuity: 2 Enc Type: Observation Med Service: Medical Arrival: 08/26/2023 03:50:45 Discharge: LOS: 000 11:27 Checkin: 08/26/2023 03:50:45 Checkout: 08/26/2023 15:17:04 Dispo Type: Admitted as IP to this [facility] EVENTS: Event Name Event Status Request Date/Time Start Date/Time Complete Date/Time Arrive Complete 08/26/2023 03:50:45 08/26/2023 03:50:45 08/26/2023 03:50:45 Document Home Meds Complete 08/26/2023 03:50:45 08/26/2023 11:46:30 08/26/2023 11:46:30 Triage Complete 08/26/2023 03:50:45 08/26/2023 04:01:51 08/26/2023 04:01:51 Bed Assign Complete 08/26/2023 03:51:19 08/26/2023 03:51:19 08/26/2023 03:51:19 Dr Exam Complete 08/26/2023 03:51:19 08/26/2023 03:51:22 08/26/2023 03:51:22 RN Exam Complete 08/26/2023 03:51:19 08/26/2023 04:47:18 08/26/2023 04:47:18 Registration Complete 08/26/2023 03:51:22 08/26/2023 03:59:45 08/26/2023 03:59:45 EKG Complete 08/26/2023 03:51:49 08/26/2023 03:53:23 Pending Labs Complete 08/26/2023 03:51:49 08/26/2023 10:26:00 Lab Complete 08/26/2023 03:51:49 08/26/2023 05:09:01 Patient Care Request 08/26/2023 03:51:49 RT Request 08/26/2023 03:51:49 X-Ray Complete 08/26/2023 03:51:49 08/26/2023 04:02:05 08/26/2023 04:11:42 Reg Complete Request 08/26/2023 03:59:45 Reg Bed Request Complete 08/26/2023 03:59:45 08/26/2023 03:59:45 08/26/2023 03:59:45 Wet Read Request 08/26/2023 04:11:42 Pending Labs Complete 08/26/2023 04:29:44 08/26/2023 04:29:44 08/26/2023 04:50:30 Lab Complete 08/26/2023 04:29:44 08/26/2023 04:29:44 08/26/2023 04:50:30 Pending Labs Cancel 08/26/2023 06:42:14 08/26/2023 06:44:39 Pending Labs Cancel 08/26/2023 06:42:36 08/26/2023 06:44:39 Lab Cancel 08/26/2023 06:42:36 08/26/2023 06:44:39 Pending Labs Complete 08/26/2023 06:45:05 08/26/2023 06:45:05 08/26/2023 07:17:37 Lab Complete 08/26/2023 06:45:05 08/26/2023 06:45:05 08/26/2023 07:09:02 Bed Request Request 08/26/2023 06:47:48 Reg Bed Request Complete 08/26/2023 06:47:48 08/26/2023 07:06:43 08/26/2023 07:06:43 Admit Request 08/26/2023 06:47:48 Consult Request 08/26/2023 07:03:20 Patient Care Request 08/26/2023 07:06:44 Patient Care Request 08/26/2023 07:06:44 Medicare Form Complete 08/26/2023 07:06:45 08/26/2023 08:05:55 Patient Care Complete 08/26/2023 07:06:45 08/26/2023 13:46:07 Patient Care Request 08/26/2023 07:06:45 Echo Complete 08/26/2023 07:08:06 08/26/2023 13:55:33 08/26/2023 14:40:51 Pending Labs Request 08/26/2023 07:54:42 Consult Request 08/26/2023 08:43:30 ADDRESS: [address] [place] [id number] PHYS DOC NOTES: MEDICAL INFORMATION: Prescriptions Given: Medications to Continue with No Changes Other Medications acetaminophen-oxycodone (acetaminophen-oxycodone 325 mg-10 mg oral tablet) 1 Tablets By Mouth every 4 hours as needed for pain. albuterol (albuterol 0.083% Inh Kaylee 3 mL) 0.083% - 3mL dosing units Inhalation every 4 hours as needed. albuterol-ipratropium (Combivent Respimat) 1 Puffs Inhalation 4 times a day as needed Shortness of breath or wheezing. alprazolam (Xanax 0.25 mg Tab) 1 Tablets By Mouth 2 times a day as needed as needed for anxiety. aripiprazole (Abilify 5 mg Tab) 1 Tablets By Mouth every day. clopidogrel (Plavix 75 mg Tab) 1 Tablets By Mouth every other day. ergocalciferol (Vitamin D 50,000 intl units (1.25 mg) oral capsule) 1 Capsules By Mouth Saturday. fenofibrate (TriCor 145 mg oral tablet) 1 Tablets By Mouth every day. fluconazole (fluconazole 200 mg Tab) 1 Tablets By Mouth every day for 14 Days. fluoxetine (Prozac 40 mg Cap) 1 Capsules By Mouth every day. fluticasone-vilanterol (Breo Ellipta 100 mcg-25 mcg inhalation powder) 1 Puffs Inhalation every day. 30 dose unit. Refills: 2. morphine (morphine 15 mg/8 hr oral tablet, extended release) 1 Tablets By Mouth every 12 hours. omeprazole (omeprazole 20 mg Cap-EC) 1 Capsules By Mouth every day. raloxifene (Evista 60 mg Tab) 1 Tablets By Mouth every day. senna (Senna 8.6 mg oral tablet) 2 Tablets By Mouth once a day (at bedtime). simvastatin (simvastatin 40 mg Tab) 1 Tablets By Mouth once a day (at bedtime). tizanidine (tiZANidine 2 mg Tab) 1 Tablets By Mouth every 8 hours as needed Spasm. PATIENT EDUCATION INFORMATION: Instructions: Follow up: DIAGNOSIS: 1:Chest pain; 2:Leukocytosis; 3:Nausea; 4:Chronic respiratory failure; 5:COPD (chronic obstructive pulmonary disease); 6:CVA (cerebral vascular accident); 7:Chronic GERD; 8:Depression with anxiety; 9:Hyperlipidemia; 10:Urge incontinence [facility] ED Note-Physicianon 08-26-19 ED Note-Physician Basic Information Time Seen: Yosvany Villeda DO 08/26/2023 03:51 History of Present Illness HPI: Patient is a 72-year-old female with past medical history of GERD, COPD on chronic nasal cannula oxygen, stroke, depression, hyperlipidemia, obesity, former smoker, who presents the ED via EMS for chest pain. Patient states that this pain woke her up out of sleep tonight has been constant since that time. The pain is in her left chest and radiates to her left shoulder blade and left jaw. She has had nausea with this as well as some increased shortness of breath. She denies ever having anything like this in the past. She denies any history of heart disease that she is aware of. EMS gave her 4 baby aspirin, 4 mg of Zofran, and 1 sublingual nitroglycerin in transport. ROS: Pertinent review of systems conducted and is negative except as noted above. Physical exam: General: nontoxic appearing and in no distress HEENT: Mucous membranes moist Neuro: awake and alert Neck: supple, trachea midline Card: Heart regular rate and rhythm no murmur Resp: Lungs clear to auscultation no wheeze or rhonchi Abd: Soft and nondistended. No tenderness to palpation with no rebound or guarding. Ext: No gross deformity or edema Physical Exam Vitals & Measurements T: 36.7 ?C(Oral) HR: 73(Monitored) RR: 14 BP: 110/58 SpO2: 97% HT: 157.48 cm WT: 83 kg BMI: 33.47 Medical Decision Making MEDICAL DECISION MAKING Number and Complexity of Problems Differential Diagnosis: [] [facility] Data External documents reviewed: Diagnostic left heart catheterization, coronary angiography, LV angiogram 12/09/2019 CONCLUSIONS: 1. Minimal nonobstructive disease of the proximal left circumflex but essentially normal coronary arteries. 2. Normal left ventricular size and function with an ejection fraction of 65%. 3. Normal left ventricular end-diastolic pressure. My EKG interpretation: Noted in chart if applicable My CT interpretation: N/A My X-ray interpretation: Noted in chart if applicable My Ultrasound interpretation: N/A Decision rules/scores evaluated: Heart Score for Major Cardiac Event History: Example factors for history - pattern of chest pain, onset, duration, relation with exercise, stress or cold, localization, concominant symptoms. reaction to sublingual nitrates, [X] Highly suspicious +2 [] Moderately suspicious +1 [] Slightly suspicious 0 EKG: [] Significant ST-Depression +2 [] Non specific repolarization disturbance +1 [X] Normal 0 Age: [X] >= 65 +2 [] 45-65 + 1 [] <45 0 Risk Factors: (HLD, HTN, DM, Cigarette Smoking, Pos Family Hx, Obesity) [X] >3 risk factors or hx of atheroslerotic disease + 2 [] 1-2 risk factors + 1 [] No risk factors known 0 Troponin: [] >= 3X normal + 2 [] 1-3X normal + 1 [X] <= Normal 0 -------- [] 0-3 Points 0.9 - 1.7% risk of major adverse cardiac event in 6 weeks [X] 4-6 Points 12-16.6% risk of major adverse cardiac event in 6 weeks [] 7-10 Points 50-65% risk of major adverse cardiac event in 6 weeks -------- [] 0-3 Points with 2 sets of negative cardiac markers <1% risk of major adverse cardiac event in 30 days. -------- Discussed with: N/A Treatment and Disposition ED Course: Patient is nontoxic-appearing in no distress. On arrival to the ED her nausea has improved with the Zofran but the chest discomfort is still present. Will obtain a cardiac workup here in the ED including EKG, chest x-ray, blood work including troponin. EKG shows some borderline slight ST depressions however this appears relatively similar to her prior. Initial troponin is within normal limits. Chest x-ray appears stable from her previous. Patient reports that her discomfort has now spontaneously resolved and she is feeling much better. With the patient's age, concerning symptoms tonight and her risk factors I do believe she would benefit from further evaluation. Case discussed with the hospitalist on-call who agreed admit the patient for further medical management. Shared decision making: As above Code status: N/A Assessment/Plan Chest pain (R07.9: Chest pain, unspecified) Nausea (R11.0: Nausea) Orders: Basic Metabolic Panel CBC w/ Auto Diff ECG 12 Lead Adult ED Cardiac Monitoring eGFR Oxygen Saturation Oxygen Therapy PT & PTT Saline Lock Insert Troponin 0 Hr. Troponin 1 Hr. Troponin 3 Hr. Troponin 6 Hr. XR Chest Single View Disposition Plan Discharge Prescription List Prescriptions No active prescription medications Follow-up No qualifying data available Problem List/Past Medical History Ongoing Chronic GERD COPD (chronic obstructive pulmonary disease) CVA (cerebral vascular accident) Depression Depression with anxiety Former smoker History of CVA in adulthood Hyperlipidemia Hyperli (more content not included)... [facility] Comment on above: Result Comment: Elec tronically Signed By: Yosvany Villeda DO\.br\Date and Time Signed: 08/26/23 06:50 EDT ED Patient Education Noteon 08-26-2023 ED Patient Education Note [facility] ED Patient Summaryon 024 ED Patient Summary (Inserted Image. Lynda ble to display) [place] [id number] Patient Discharge Instructions Person Information Name: TEMI LOMELILIShikha Wesley Age: 72 Years Arrival Date: 08/26/2023 03:50:45 Discharge Diagnosis: 1:Chest pain; 2:Leukocytosis; 3:Nausea; 4:Chronic respiratory failure; 5:COPD (chronic obstructive pulmonary disease); 6:CVA (cerebral vascular accident); 7:Chronic GERD; 8:Depression with anxiety; 9:Hyperlipidemia; 10:Urge incontinence Primary Care Physician: PARRIS GUZMAN DO Provider Information Primary Provider: Yosvany Villeda DO Advanced Physical Anthropologist:None The exam and treatment you received in the Emergency Department were for an urgent problem and are not intended as complete care. It is important that you follow up with a doctor, nurse practitioner, or physician?s employee relations assistant for ongoing care. If your symptoms become worse or you do not improve as expected and you are unable to reach your usual health care provider, you should return to the Emergency Department. We are available 24 hours a day. NICOLE LOMELI has been given the following list of patient education materials, prescriptions and follow-up instructions: Follow-up Instructions: In the event that this physician does not participate in your insurance network, please consult with your insurance company to find a nearby participating provider. Patient Education Materials: A MESSAGE TO ALL PATIENTS REGARDING OPIOIDS PRESCRIPTION OPIOIDS: WHAT YOU NEED TO KNOW Prescription opioids can be used to help relieve rnbxbdyu-kd-ktkqhu pain and are often prescribed following a surgery or injury, or for certain health conditions. These medications can be an important part of the treatment but also come with serious risks. It is important to work with your healthcare provider to make sure you are getting the safest, most effective care. WHAT ARE THE RISKS AND SIDE EFFECTS OF OPIOID USE? Prescription opioids carry serious risks of addiction and overdose, especially with prolonged use. An opioid overdose, often marked by slowed breathing, can cause sudden . The use of prescription opioids can have a number of side effects as well, even when taken as directed: ? Tolerance?meaning you might need to take more of the medication for the same pain relief ? Physical dependence?meaning you have symptoms of withdrawal when a medication is stopped ? Increased sensitivity to pain ? Constipation ? Nausea, vomiting, and dry mouth ? Sleepiness and dizziness ? Confusion ? Depression ? Low levels of testosterone that can result in lower sex drive, energy, and strength ? Itching and sweating RISKS ARE GREATER WITH: ? History of drug misuse, substance use disorder, or overdose ? Mental health conditions (such as depression or anxiety) ? Sleep apnea ? Older age (65 years and older) ? Avoid alcohol while taking prescription opioids. Also, unless specifically advised by your health care provider, medications to avoid include: ? Benzodiazepines (such as Xanax or Valium) ? Muscle relaxants (such as Soma or Flexeril) ? Hypnotics (such as Ambien or Lunesta) ? Other prescription opioids KNOW YOUR OPTIONS Talk to your health care provider about ways to manage your pain that don?t involve prescription opioids. Some of these options may actually work better and have fewer risks and side effects. Options may include: ? Pain relievers such as acetaminophen, ibuprofen, and naproxen ? Some medication that are also used for depression or seizures ? Physical therapy and exercise ? Cognitive behavioral therapy, a psychological, goal-directed approach, in which patients learn how to modify physical, behavioral, and emotional triggers of pain and stress. IF YOU ARE PRESCRIBED OPIOIDS FOR PAIN: ? Never take opioids in greater amounts or more often than prescribed. ? Follow up with your primary health care provider. o Work together to create a plan on how to manage your pain. o Talk about ways to help manage your pain that don?t involve prescription opioids. o Talk about any and all concerns and side effects. ? Help prevent misuse and abuse o Never sell or share prescription opioids. o Never use another person?s prescription opioids. ? Store prescription opioids in a secure place and out of reach of others (this may include visitors, children, friends, and family). ? Safely dispose of unused prescription opioids: Find your community drug take-back program or your pharmacy mail-back program, or flush them down the toilet, following guidance from the Food and Drug Administration (www.fda.gov/Drugs/Resour cesForYou). ? Visit www.cdc.gov/drugoverdose to learn about the risks of opioids abuse and overdose. ? If you believe you may be struggling with addiction, tell your health care advocate and ask for guidance or call [facility]?S Maeve (more content not included)... [facility] HEMATOLOGYOrdered By: SYSTEM SYSTEM on 08-26-2023 Basophils/100 WBC (Bld) 1.0 % Normal 0.0 - 2.0 % Remisol Heme Basophils/Leukocytes Auto (Bld) [Pure # fraction] 0.2 E9/L Normal 0.0 - 0.2 E9/L Remisol Heme Eosinophils (Bld) [#/Vol] 0.2 E9/L Normal 0.0 - 0.5 E9/L Remisol Heme Eosinophils/100 WBC (Bld) 1.0 % Normal 0.0 - 8.0 % Remisol Heme Erythrocyte distribution width (RBC) [Ratio] 14.2 % Normal 10.9 - 14.2 % Remisol Heme Hematocrit (Bld) [Volume fraction] 35.7 % Normal 34.0 - 46.0 % Remisol Heme Hemoglobin (Bld) [Mass/Vol] 11.9 g/dL Low 12.0 - 16.0 gm/dL Remisol Heme Lymphocytes (Bld) [#/Vol] 4.1 E9/L High 1.0 - 4.0 E9/L Remisol Heme Lymphocytes/100 WBC (Bld) 22.6 % Normal 14.0 - 50.0 % Remisol Heme MCH (RBC) [Entitic mass] 30.6 pg Normal 27.0 - 34.0 pg Remisol Heme MCHC (RBC) [Mass/Vol] 33.3 g/dL Normal 31.4 - 36.0 gm/dL Remisol Heme MCV (RBC) [Entitic vol] 92.1 fL Normal 80.0 - 100.0 fL Remisol Heme Monocytes (Bld) [#/Vol] 1.2 E9/L High 0.2 - 1.0 E9/L Remisol Heme Monocytes/100 WBC (Bld) 6.8 % Normal 4.0 - 14.0 % Remisol Heme Neutrophils (Bld) [#/Vol] 12.5 E9/L High 2.0 - 7.5 E9/L Remisol Heme Neutrophils/100 WBC (Bld) 68.6 % Normal 36.0 - 75.0 % Remisol Heme Platelet mean volume (Bld) [Entitic vol] 7.7 fL Normal 6.4 - 10.8 fL Remisol Heme Platelets (Bld) [#/Vol] 212.0 E9/L Normal 150.0 - 500.0 E9/L Remisol Heme RBC (Bld) [#/Vol] 3.9 E12/L Low 4.3 - 5.9 E12/L Remisol Heme WBC corrected for nucl RBC Auto (Bld) [#/Vol] 18.2 E9/L High 4.0 - 11.0 E9/L Remisol Heme Basophils/100 WBC (Bld) 0.2 % Normal 0.0 - 2.0 % Remisol Heme Basophils/Leukocytes Auto (Bld) [Pure # fraction] 0.0 E9/L Normal 0.0 - 0.2 E9/L Remisol Heme Eosinophils (Bld) [#/Vol] 0.2 E9/L Normal 0.0 - 0.5 E9/L Remisol Heme Eosinophils/100 WBC (Bld) 1.3 % Normal 0.0 - 8.0 % Remisol Heme Erythrocyte distribution width (RBC) [Ratio] 14.2 % Normal 10.9 - 14.2 % Remisol Heme Hematocrit (Bld) [Volume fraction] 37.7 % Normal 34.0 - 46.0 % Remisol Heme Hemoglobin (Bld) [Mass/Vol] 12.5 g/dL Normal 12.0 - 16.0 gm/dL Remisol Heme Lymphocytes (Bld) [#/Vol] 5.2 E9/L High 1.0 - 4.0 E9/L Remisol Heme Lymphocytes/100 WBC (Bld) 29.7 % Normal 14.0 - 50.0 % Remisol Heme MCH (RBC) [Entitic mass] 30.9 pg Normal 27.0 - 34.0 pg Remisol Heme MCHC (RBC) [Mass/Vol] 33.1 g/dL Normal 31.4 - 36.0 gm/dL Remisol Heme MCV (RBC) [Entitic vol] 93.3 fL Normal 80.0 - 100.0 fL Remisol Heme Monocytes (Bld) [#/Vol] 1.3 E9/L High 0.2 - 1.0 E9/L Remisol Heme Monocytes/100 WBC (Bld) 7.4 % Normal 4.0 - 14.0 % Remisol Heme Neutrophils (Bld) [#/Vol] 10.7 E9/L High 2.0 - 7.5 E9/L Remisol Heme Neutrophils/100 WBC (Bld) 61.4 % Normal 36.0 - 75.0 % Remisol Heme Platelet mean volume (Bld) [Entitic vol] 7.3 fL Normal 6.4 - 10.8 fL Remisol Heme Platelets (Bld) [#/Vol] 229.0 E9/L Normal 150.0 - 500.0 E9/L Remisol Heme RBC (Bld) [#/Vol] 4.0 E12/L Low 4.3 - 5.9 E12/L Remisol Heme WBC corrected for nucl RBC Auto (Bld) [#/Vol] 17.4 E9/L High 4.0 - 11.0 E9/L Rem[facility] Heme Laboratory - Microbiology an d Antimicrobial susceptibilityOrdered By: Debra Sykes on 08-26-2023 Bacteria identified Cx Nom (U) >100,000 cfu/ml Gram Negative [employer] Engineer species [facility] Message from Medicareon 08-07 Message from Medicare [id number]#1.00TIFF [facility] Monitor Recordon 08-26-2023 Monitor Record [id number]#1.00TIFF [facility] Monitor Record [id number]#1.00TIFF [facility] Monitor Record [id number]#1.00TIFF [facility] Monitor Record [id number]#1.00TIFF [facility] Monitor Record [id number]#1.00TIFF [facility] Monitor Record [id number]#1.00TIFF [facility] Monitor Record [id number]#1.00TIFF [facility] Monitor Record [id number]#1.00TIFF [facility] Monitor Record [id number]#1.00TIFF [facility] Monitor Record [id number]#1.00TIFF [facility] PT & PTTon 08-26-2023 aPTT Coag (PPP) [Time] 26.8 second(s) Normal 25.1-36.5 [facility] Comment on above: Result Comment: Para meter 15 days - 4 weeks 1 - 5 months 6 - 11 months 1 - 5 years 6 - 10 years 11 - 17 years PTT Mean: 35.4 (27.6-45.6) Mean: 33.5 (24.8-40.7) Mean: 32.4 (25.1-40.7) Mean: 31.6 (24.0-39.2) Mean: 31.6 (26.9-38.7) Mean: 31.0 (24.6-38.4) Pediatric Reference ranges were obtained from a study by Rene Maloney et al. prepared from 1437 samples obtained at 7 different centers using the same coagulation reagent and instrumentation as [facility]. Currently there are no coagulation studies available worldwide for children to 14 days, and no normal ranges. Heparin therapeutic range (represented by Anti-Factor Xa activity of 0.2 - 0.4 U/mL) corresponds to PTT of 56.6 - 109.0 sec. Performed By: #### 1 [id number] #### [facility] [address] [place] [address] INR Coag (PPP) [Relative time] 0.90 {INR} Invalid Interpretation Code [facility] Comment on above: Result Comment: INR results are specifically intended to assess patients stabilized on long-term Anticoagulation therapy suggested INR?s ?Less Intensive Anticoagulation? 2.0 ? 3.0 Conventional Range 3.0 ? 4.5 Performed By: #### 1 [id number] #### [facility] [address] [place] [address] PT Coag (PPP) [Time] 10.1 second(s) Normal 9.4-12.5 [facility] Comment on above: Result Comment: 15 d ays - 4 weeks 1 - 5 months 6 -11 months 1 ? 5 years 6 ? 10 years 11 -17 years Mean: 11.2 (9.5 ? 12.6) Mean: 11.0 (9.7 ? 12.8) Mean: 11.0 (9.8 ? 13.0) Mean: 11.3 (9.9 ? 13.4) Mean: 11.7 (10.0 ? 14.6) Mean: 11.8 (10.0 - 14.1) Pediatric Reference ranges were obtained from a study by Rene Maloney et al. prepared from 1437 samples obtained at 7 different centers using the same coagulation reagent and instrumentation as [facility]. Currently there are no coagulation studies available worldwide for children to 14 days, and no normal ranges. Performed By: #### 1 [id number] #### [facility] [address] [place] [address] Pre-Arrival Noteon 4 Pre-Arrival Note [facility] Current Date: 08/26/2023 03:53:35 EDT Gender: Female Date of : Age: 72 Pre-Arrival Type: EMS ETA: 08/26/2023 03:40:00 EDT Primary Care Physician: Presenting Problem: chest pain Pre-Arrival User: Silvina Richard RN Referring Source: Location: [place] Completion Date/Time: 08/26/2023 03:37:00 [facility] Pre-Hospital Report Form ____ Vital Signs: 129/64--SR(no elevation)-90--22--98%4L Pre-Hospital Report:chest pain woke out of sleep, Left sided radiates to jaw and back started resolving before squad arrived, currently 09/15 Treatment in Route:22gLH--4 baby ASA, 4mg zofran, 1 nitro Response to Treatment: Misc. Issues:HX COPD, Stroke, 4Laat [facility] Procalcitoninon 08-26-2023 Procalcitonin .07 ng/mL Normal .00-.50 [facility] Comment on above: Result Comment: <0.5 ng/mL Low risk of severe sepsis and/or shock >2.0 ng/mL High risk of severe sepsis and/or shock Concentrations under 0.5 ng/mL do not exclude local infections or systemic infections in their initial stages (e.g.. under six hours from onset of illness). PCT concentrations between 0.5 and 2.0 ng/mL should be interpreted with consideration of the patient's history. In this range, it is recommended to retest PCT within 6 to 24 hours. Performed By: #### 2 [id number] #### [facility] [address] [place] [address] Troponin 0 Hr.on 08-26-2023 Troponin 3.60 pg/mL Low 10.10-27.1 0 [facility] Comment on above: Result Comment: The 95% CI (Confidence Interval) PPV (Positive Predictive Value) for myocardial infarction in females is 38 pg/mL, in males 51 pg/mL. The results should be used in conjunction with clinical conditions of myocardial infarction. (Access High Sensitivity Troponin I Instructions For Use, Kip Wilton, November 2017) Performed By: #### 1 [id number] #### [facility] [address] [place] [address] Troponin 1 Hr.on 08-26-2023 Troponin 3.90 pg/mL Low 10.10-27.1 0 [facility] Comment on above: Order Comment: due @ 0526 Result Comment: The 95% CI (Confidence Interval) PPV (Positive Predictive Value) for myocardial infarction in females is 38 pg/mL, in males 51 pg/mL. The results should be used in conjunction with clinical conditions of myocardial infarction. (Access High Sensitivity Troponin I Instructions For Use, [employer], November 2017) Performed By: #### 1 [id number] #### [facility] [address] [place] [address] Troponin 3 Hr.on 08-26-2023 Troponin 3.90 pg/mL Low 10.10-27.1 0 [facility] Comment on above: Result Comment: The 95% CI (Confidence Interval) PPV (Positive Predictive Value) for myocardial infarction in females is 38 pg/mL, in males 51 pg/mL. The results should be used in conjunction with clinical conditions of myocardial infarction. (CRAVE High Sensitivity Troponin I Instructions For Use, [employer], November 2017) Performed By: #### 1 [id number] #### [facility] [address] [place] [address] Troponin 6 Hr.on 08-26-2023 Troponin 4.30 pg/mL Low 10.10-27.1 0 [facility] Comment on above: Result Comment: The 95% CI (Confidence Interval) PPV (Positive Predictive Value) for myocardial infarction in females is 38 pg/mL, in males 51 pg/mL. The results should be used in conjunction with clinical conditions of myocardial infarction. (Access High Sensitivity Troponin I Instructions For Use, [employer] 2017) Performed By: #### 1 [id number] #### [facility] [address] [place] [address] UA with Cult Rflxon 08-26-19 24 Bacteria Auto Ql (U) 4+ /HPF Abnormal Trace Fish [facility] Comment on above: Performed By: #### 4 [id number] #### [facility] [address] [place] [address] Bilirubin Ql (U) Negative Normal Negative [facility] Comment on above: Performed By: #### 4 [id number] #### [facility] [address] [place] [address] Clarity (U) Clear Normal Clear [facility] Comment on above: Performed By: #### 4 [id number] #### [facility] [address] [place] [address] Color (U) Light-Yellow Normal Yellow [facility] Comment on above: Result Comment: Micr oscopic readings are only performed on those samples that meet specific criteria set forth by [facility]. Performed By: #### 4 [id number] #### [facility] [address] [place] [address] Crystals.amorphous Computer assisted Ql (U) Present Abnormal [facility] Comment on above: Performed By: #### 4 [id number] #### [facility] [address] [place] [address] Epithelial cells.squamous Auto (Urine sed) [#/Area] 0-2 Normal 0-2 [facility] Comment on above: Performed By: #### 4 [id number] #### [facility] [address] [place] [address] Glucose Ql (U) Negative Normal Negative [facility] Comment on above: Performed By: #### 4 [id number] #### [facility] [address] [place] [address] Hemoglobin Auto test strip (U) [Mass/Vol] 1+ mg/dL Abnormal Negative [facility] Comment on above: Performed By: #### 4 [id number] #### [facility] [address] [place] [address] Ketones Auto test strip Ql (U) Negative Normal Negative [facility] Comment on above: Performed By: #### 4 [id number] #### [facility] [address] [place] [address] Leukocyte esterase Auto test strip Ql (U) 250 Chris/uL Abnormal Negative [facility] Comment on above: Performed By: #### 4 [id number] #### [facility] [address] [place] [address] Mucus Auto Ql (U) Trace Normal Negative [facility] Comment on above: Performed By: #### 4 [id number] #### [facility] [address] [place] [address] Nitrite Auto test strip Ql (U) 1+ mg/dL Abnormal Negative [facility] Comment on above: Performed By: #### 4 [id number] #### [facility] [address] [place] [address] pH (U) 7.5 [pH] Invalid Interpretation Code 5.0-9.0 [facility] Comment on above: Performed By: #### 4 [id number] #### [facility] [address] [place] [address] Protein Ql (U) Negative Normal Negative [facility] Comment on above: Performed By: #### 4 [id number] #### [facility] [address] [place] [address] RBC Ql (U) 0-3 Normal 0-3 [facility] Comment on above: Performed By: #### 4 [id number] #### [facility] [address] [place] [address] Specific gravity (U) [Rel density] 1.009 Invalid Interpretation Code 1.005-1.03 0 [facility] Comment on above: Performed By: #### 4 [id number] #### [facility] [address] [place] [address] Urobilinogen (U) [Mass/Vol] Negative Normal Negative [facility] Comment on above: Performed By: #### 4 [id number] #### [facility] [address] [place] [address] WBC Auto (Urine sed) [#/Area] 16-25 Abnormal 0-5 [facility] Comment on above: Performed By: #### 4 [id number] #### [facility] [address] [place] [address] Type of Urine collection method Clean Catch Normal [facility] Comment on above: Performed By: #### 4 [id number] #### [facility] [address] [place] [address] URINALYSISOrdered By: SYSTEM SYSTEM on 08-26-2023 Bacteria Auto Ql (U) 4+ /HPF Invalid Interpretation Code Trace/HPF [facility] UA Auto SS Bilirubin Ql (U) Negative Normal Negativemg /dL [facility] UA Auto SS Clarity (U) Clear (08/26/23 5:52 PM) Normal Clear [facility] UA Auto SS Color (U) Light-Yellow 1 (08/26/23 5:52 PM) Normal Yellow [facility] UA Auto SS Comment on above: Interpretive Data: M icroscopic readings are only performed on those samples that meet specific criteria set forth by [facility]. Crystals.amorphous Computer assisted Ql (U) Present graded/HPF Invalid Interpretation Code [facility] UA Auto SS Epithelial cells.squamous Auto (Urine sed) [#/Area] 0-2 graded/HPF Normal 0-2graded/ HPF [facility] UA Auto SS Glucose Ql (U) Negative Normal Negativemg /dL [facility] UA Auto SS Hemoglobin Auto test strip (U) [Mass/Vol] 1+ mg/dL Invalid Interpretation Code Negativemg /dL [facility] UA Auto SS Ketones Auto test strip Ql (U) Negative Normal Negativemg /dL [facility] UA Auto SS Leukocyte esterase Auto test strip Ql (U) 250 Chris/uL Chris/uL Invalid Interpretation Code NegativeLe u/uL [facility] UA Auto SS Mucus Auto Ql (U) Trace graded/LPF Normal Negati vegr aded/LPF [facility] UA Auto SS Nitrite Auto test strip Ql (U) 1+ mg/dL Invalid Interpretation Code Negativemg /dL [facility] UA Auto SS pH (U) 7.5 *NA* (08/26/23 5:52 PM) Invalid Interpretation Code 5.0 - 9.0 [facility] UA Auto SS Protein Ql (U) Negative Normal Negativemg /dL [facility] UA Auto SS RBC Ql (U) 0-3 graded/HPF Normal 0-3graded/ HPF [facility] UA Auto SS Specific gravity (U) [Rel density] 1.009 *NA* (08/26/23 5:52 PM) Invalid Interpretation Code 1.005 - 1.030 [facility] UA Auto SS Urobilinogen (U) [Mass/Vol] Negative Normal Negativemg /dL [facility] UA Auto SS WBC Auto (Urine sed) [#/Area] 16-25 graded/HPF Invalid Interpretation Code 0-5graded/ HPF [facility] UA Auto SS URINALYSISOrdered By: Nava Horton on 08-26-2023 UA Spec Desc Clean Catch (08/26/23 5:52 PM) Normal [facility] UA Auto SS XR Chest Single Viewon 08-25 XR Chest Single View Exam Date/Time: 08/26/2023 04:11 EDT Reason for Exam: Chest pain Report IMPRESSION: NO DEFINITE EVIDENCE OF ACTIVE CARDIOPULMONARY DISEASE, WITHIN THE LIMITS OF THE STUDY. COPD, WHICH IS BEST EVALUATED CLINICALLY. EXAM: XR Chest Single View DATE: 08/26/2023 CLINICAL HISTORY: Chest pain. History of COPD. COMPARISON: Portable chest and chest CTA 11/25/2022. TECHNIQUE: A portable upright AP radiograph of the chest was obtained. FINDINGS: The study is limited by portable technique and the patient's body habitus. There is no obviously developing infiltrate, pleural effusion, vascular congestion, pneumothorax, cardiomegaly, or displaced fractures identified. Mild hyperinflation and coarsening of the bronchovascular structures consistent with COPD appear unchanged from the prior study. Ordering Provider: Yosvany Villeda FINAL REPORT Dictated: 08/26/2023 9:00 am Duke Castellon MD Signed (Electronic Signature): 08/26/2023 9:00 am Signed by: Duke Castellon MD Transcribed by: BEATRICE Technologist: DONOVAN Technical Comments Radiation Dose: Ka,r in mGy = n/a DAP = n/a Normal [facility] eGFRon 08-26-2023 eGFR 59 mL/min/1.73 m2 Normal >=59 [facility] Comment on above: Order Comment: Order added by Discern Expert. Performed By: #### 1 [id number] #### [facility] [address] [place] [address] Physician Orderon 08-20-2023 Physician Order [id number] Normal [facility] XR knee LT 2Von 10-26-2023 XR knee LT 2V [facility] [address] [address] XRay Report Signed Patient: Nicole Lomeli MR#: [id number] : 1950 Acct:[id number] Age/Sex: 72 / F ADM Date: 01/31/23 Loc: ICXD Room: Type: [facility] CLI Attending Dr: Parris Guzman DO Copies to: Parris Guzman DO Ordering Provider: Parris Guzman DO Date of Service: 01/31/23 XR/XR knee LT 2V: Pain in left knee;Effusion, left knee LEFT KNEE - 2 views CLINICAL HISTORY: Fall onto left knee 2 weeks ago with laceration to left knee with ching. COMPARISON: None FINDINGS: Skin ching are noted over the patella. No knee joint effusion. No acute bony process is seen. Minimal degenerative change. XR/XR knee LT 2V IMPRESSION: NO ACUTE BONY PROCESS. Impression dictated by: Eddy Tafoya Jr., D.OMichael01/31/2023 2:49 PM Dictation Location: [place] [address] Transcribed By: [facility] 01/31/23 1449 Dictated By: Eddy Tafoya Jr, DO 01/31/23 1448 Signed By: 01/31/23 1449 Normal [facility] XR knee LT 2Von 01-18-2023 XR knee LT 2V [facility] Main [address] [address] XRay Report Signed Patient: Nicole Lomeli MR#: [id number] : 1950 Acct:[id number] Age/Sex: 72 / F ADM Date: 01/17/23 Loc: ER Room: Type: [facility] ER Attending Dr: Copies to: Cheko Rolon Jr, MD Ordering Provider: Cheko Rolon Jr, MD Date of Service: 01/17/23 XR/XR knee LT 2V: fall, large anterior knee lac ([id number]) XR/XR femur LT 2V*: fall, large anterior knee lac ([id number]) XR/XR tibia fibula LT 2V*: fall, large anterior knee lac Left femur 2 views, left knee 2 views, left tib-fib 2 views Reason for exam: Fall tonight with left anterior knee pain and femur pain. Laceration anterior knee. COMPARISON: None FINDINGS: Left femur: A laceration is seen in the region of the knee consistent with the history. There is a somewhat linear radiopaque foreign body along the lateral aspect of the left thigh measuring 1.4 cm in greatest dimension. No acute fracture is seen. Mild degenerative changes of the left hip. Left knee: No knee joint effusion. Laceration is once again seen. Mild degenerative changes of the left knee without acute bony process. Left tib-fib: Mild soft tissue swelling is noted. No acute bony process is seen. Ankle mortise appears intact. XR/XR femur LT 2V* IMPRESSION: No acute bony process is seen involving the left lower extremity. A laceration is seen in the region of the knee consistent with the history. Somewhat linear radiopaque foreign body is seen along the lateral aspect of the left thigh measuring 1.4 cm in greatest axial dimension. Impression dictated by: Eddy Tafoya Jr., DMichaelOMichael01/18/2023 9:01 AM Dictation Location: [place] [address] Transcribed By: [facility] 01/18/23900 Dictated By: Eddy Tafoya Jr, DO 01/18/23 0859 Signed By: 01/18/23 09 Normal [facility] Activated partial thrombopla stin time (aPTT) in platelet poor plasma by coagulation aOrdered By: Cheko Rolon on 01-17-2023 aPTT Coag (PPP) [Time] 26.8 s 25.1-36.5 [facility] Comment on above: A hematocrit value g reater than 55% may lead to inaccurate results in coagulation testing. Patients having hematocrit values >55% require a special collection tube for coagulation studies. Please contact the laboratory at [phone] for redraw instructions. Alanine aminotransferase [En zymatic activity/volume] in Serum or PlasmaOrdered By: Cheko Rolon on 01-17-2023 ALT [Catalytic activity/Vol] 6 U/L Low 7-52 [facility] Comment on above: Performed By: #### C BC, CMP, PP #### [address] Albumin [Mass/volume] in Ser um or Plasma by Bromocresol green (BCG) dye binding methoOrdered By: Cheko Rolon on 01-17-2023 Albumin BCG dye [Mass/Vol] 3.7 g/dL 3.5-5.7 [facility] Alkaline phosphatase [Enzyma tic activity/volume] in Serum or PlasmaOrdered By: Cheko Rolon on 01-17-2023 ALP [Catalytic activity/Vol] 79 U/L Normal 34-104 [facility] Comment on above: Performed By: #### C JONATHAN GRIFFITHS, PP #### [address] Aspartate aminotransferase [ Enzymatic activity/volume] in Serum or PlasmaOrdered By: Cheko Rolon on 01-17-2023 AST [Catalytic activity/Vol] 18 U/L Normal 13-39 [facility] Comment on above: Performed By: #### C JONATHAN GRIFFITHS, PP #### [address] Automated basophil %Ordered By: Cheko Rolon on 01-17-2023 Basophils/100 WBC (Bld) 0.3 % Normal . [facility] Comment on above: Performed By: #### C JONATHAN GRIFFITHS, PP #### [address] Automated basophil countOrde red By: Cheko Rolon on 01-17-2023 Basophils (Bld) [#/Vol] 0.0 10*3/uL Normal 0.0-0.2 [facility] Comment on above: Result Comment: PERF ORMED BY: [place] [address] PATHOLOGIST [employer] GURINDER DICK M.D. Performed By: #### C JONATHAN GRIFFITHS, PP #### [address] Automated blood monocyte cou ntOrdered By: Cheko Rolon on 01-17-2023 Monocytes (Bld) [#/Vol] 0.8 10*3/uL Normal 0.0-0.8 [facility] Comment on above: Performed By: #### C BC, CMP, PP #### [address] Automated eosinophil %Ordere d By: Cheko Rolon on 01-17-2023 Eosinophils/100 WBC (Bld) 2.9 % Normal . [facility] Comment on above: Performed By: #### C BC, CMP, PP #### [address] Automated eosinophil countOr dered By: Cheko Rolon on 01-17-2023 Eosinophils (Bld) [#/Vol] 0.3 10*3/uL Normal 0.0-0.45 [facility] Comment on above: Performed By: #### C BC, CMP, PP #### [address] Automated monocyte %Ordered By: Cheko Rolon on 01-17-2023 Monocytes/100 WBC (Bld) 9.0 % Normal . [facility] Comment on above: Performed By: #### C BC, CMP, PP #### [address] Automated neutrophil %Ordere d By: Cheko Rolon on 01-17-2023 Neutrophils/100 WBC (Bld) 49.6 % Normal . [facility] Comment on above: Performed By: #### C BC, CMP, PP #### [address] Bilirubin.total [Mass/volume ] in Serum or PlasmaOrdered By: Cheko Rolon on 01-17-2023 Bilirubin [Mass/Vol] 0.3 mg/dL Normal 0.3-1.0 [facility] Comment on above: Performed By: #### C BC, CMP, PP #### [address] Calcium [Mass/volume] in Ser um or PlasmaOrdered By: Cheko Rolon on 01-17-2023 Calcium [Mass/Vol] 9.4 mg/dL Normal 8.6-10.3 [facility] Comment on above: Performed By: #### C BC CMP, PP #### [address] Carbon dioxide, total [Moles /volume] in Serum or PlasmaOrdered By: Cheko Rolon on 01-17-2023 CO2 [Moles/Vol] 26.7 mmol/L Normal 21.0-31.0 [facility] Comment on above: Performed By: #### C BC CMP, PP #### [address] Chloride [Moles/volume] in S ger or PlasmaOrdered By: Cheko Rolon on 01-17-2023 Chloride [Moles/Vol] 106 mmol/L Normal 98-107 [facility] Comment on above: Performed By: #### C TUNDE CMP, PP #### [address] Coagulation Profileon 2022 aPTT Coag (Bld) [Time] 26.8 s Normal 25.1-36.5 [facility] Comment on above: Result Comment: A he matocrit value greater than 55% may lead to inaccurate results in coagulation testing. Patients having hematocrit values >55% require a special collection tube for coagulation studies. Please contact the laboratory at [phone] for redraw instructions. PERFORMED BY: [place] [address] PATHOLOGIST [employer] GURINDER DICK M.D. Performed By: #### C BC CMP, PP #### [address] Complete Blood Count Auto Di ffon 01-17-2023 Mean Corpuscular HGB Conc 33.0 g/dL Normal 32.0-35.0 [facility] Comment on above: Performed By: #### C BC CMP, PP #### [address] Monocytes/100 WBC (Bld) 18.46 % Normal 0.00-20.00 [facility] Comment on above: Performed By: #### C BC, CMP, PP #### [address] NRBC% 0.0 /100{WBC} Normal 0-0.5 [facility] Comment on above: Performed By: #### C BC CMP, PP #### [address] Comprehensive Metabolic Pane rahel 01-17-2023 Albumin [Mass/Vol] 3.7 g/dL Normal 3.5-5.7 [facility] Comment on above: Performed By: #### C BC, CMP, PP #### [address] Creatinine Clr Calc Pharmacy 60.75 Normal [facility] Comment on above: Result Comment: PERF ORMED BY: [place] [address] PATHOLOGIST [employer] GURINDER DICK M.D. Performed By: #### C TUNDE CMP, PP #### [address] GFR/1.73 sq M.predicted MDRD (S/P/Bld) [Vol rate/Area] mL/min/{1.73_m2} Normal [facility] Comment on above: Performed By: #### C TUNDE CMP, PP #### [address] Creatinine [Mass/volume] in Serum or PlasmaOrdered By: Cheko Rolon on 01-17-2023 Creatinine [Mass/Vol] 0.77 mg/dL Normal 0.60-1.20 [facility] Comment on above: Performed By: #### C BC, CMP, PP #### [address] Erythrocyte distribution wid th [Ratio] by Automated countOrdered By: Cheko Rolon on 01-17-2023 Erythrocyte distribution width (RBC) [Ratio] 14.5 % Normal 11.9-15.3 [facility] Comment on above: Performed By: #### C BC, CMP, PP #### [place] [address] [place] Erythrocytes [#/volume] in B lood by Automated countOrdered By: Cheko Rolon on 01-17-2023 RBC (Bld) [#/Vol] 3.72 10*6/uL Normal 3.60-5.00 [facility] Comment on above: Performed By: #### C JONATHAN GRIFFITHS, PP #### [facility] [address] Glucose [Mass/volume] in Ser um or PlasmaOrdered By: Cheko Rolon on 01-17-2023 Glucose [Mass/Vol] 119 mg/dL High 70-100 [facility] Comment on above: ADA recommended refe rence rangeRandom Glucose Reference Range is dependent on time and content of last meal. Glucose of more than 200 mg/dL in a nonstressed, ambulatory subject supports the diagnosis of Diabetes Mellitus. Result Comment: Henry om Glucose Reference Range is dependent on time and content of last meal. Glucose of more than 200 mg/dL in a nonstressed, ambulatory subject supports the diagnosis of Diabetes Mellitus. ADA recommended reference range Performed By: #### C JONATHAN GRIFFITHS, PP #### [address] Hematocrit [Volume Fraction] of Blood by Automated countOrdered By: Cheko Rolon on 01-17-2023 Hematocrit (Bld) [Volume fraction] 34.9 % Normal 34.0-46.4 [facility] Comment on above: Performed By: #### C JONATHAN GRIFFITHS, PP #### [facility] [address] Hemoglobin [Mass/volume] in BloodOrdered By: Cheko Rolon on 01-17-2023 Hemoglobin (Bld) [Mass/Vol] 11.5 g/dL Low 11.8-15.4 [facility] Comment on above: Performed By: #### C JONATHAN GRIFFITHS, PP #### [address] INR in Platelet poor plasma by Coagulation assayOrdered By: Cheko Rolon on 01-17-2023 INR Coag (PPP) [Relative time] 1.0 {INR} Normal [facility] Comment on above: INR Therapeutic Rang e A) Pre- and Peroperative OAT started two weeks before surgery. NOT HIP SURGERY: 1.5 - 2.5 HIP SURGERY: 2 - 3B) Primary and secondary prevention of venous THROMBOSIS: 2 - 3C) Active venous thrombosis, pulmonary embolismand prevention of recurrent venous thrombosis: 2 - 3D) Prevention of arterial thromboembolismincluding patients with mechanical heart valves: 3 - 4.5 Result Comment: INR Therapeutic Range A) Pre- and Peroperative OAT started two weeks before surgery. NOT HIP SURGERY: 1.5 - 2.5 HIP SURGERY: 2 - 3 B) Primary and secondary prevention of venous THROMBOSIS: 2 - 3 C) Active venous thrombosis, pulmonary embolism and prevention of recurrent venous thrombosis: 2 - 3 D) Prevention of arterial thromboembolism including patients with mechanical heart valves: 3 - 4.5 Performed By: #### C JONATHAN GRIFFITHS, PP #### [facility] [address] [place] [address] [place] Leukocytes [#/volume] correc jimena for nucleated erythrocytes in Blood by Automated counOrdered By: Cheko Rolon on 01-17-2023 WBC corrected for nucl RBC Auto (Bld) [#/Vol] 8.7 10*3/uL 3.8-11.6 [facility] Leukocytes [#/volume] in Blo od by Automated countOrdered By: Cheko Rolon on 01-17-2023 WBC (Bld) [#/Vol] 8.7 10*3/uL Normal 3.8-11.6 [facility] Comment on above: Performed By: #### C JONATHAN GRIFFITHS, PP #### [facility] [address] [place] [address] [place] Lymphocytes [#/volume] in Bl ood by Automated countOrdered By: Cheko Rolon on 01-17-2023 Lymphocytes (Bld) [#/Vol] 3.3 10*3/uL Normal 1.00-4.8 [facility] Comment on above: Performed By: #### C JONATHAN GRIFFITHS, PP #### [facility] [address] [place] [address] [place] Lymphocytes/100 leukocytes i n Blood by Automated countOrdered By: Cheko Rolon on 01-17-2023 Lymphocytes/100 WBC (Bld) 38.2 % Normal . [facility] Comment on above: Performed By: #### C JONATHAN GRIFFITHS, PP #### [facility] [address] [place] [address] MCH [Entitic mass] by Automa jimena countOrdered By: Cheko Rolon on 01-17-2023 MCH (RBC) [Entitic mass] 31.0 pg Normal 24.7-34.3 [facility] Comment on above: Performed By: #### C TUNDE CMP, PP #### [facility] [address] [place] [address] MCHC Auto (RBC) [Mass/Vol]Or dered By: Cheko Rolon on 01-17-2023 MCHC (RBC) [Mass/Vol] 33.0 g/dL 32.0-35.0 [facility] MCV [Entitic volume] by Auto mated countOrdered By: Cheko Rolon on 01-17-2023 MCV (RBC) [Entitic vol] 93.8 fL Normal 80-100 [facility] Comment on above: Performed By: #### C JONATHAN GRIFFITHS, PP #### [facility] [address] [place] [address] Monocyte distribution width [Entitic volume] in Blood by AutomatedOrdered By: Cheko Rolon on 01-17-2023 Monocyte distribution width Auto (Bld) [Entitic vol] 18.46 % 0.00-20.00 [facility] Neutrophils [#/volume] in Bl ood by Automated countOrdered By: Cheko Rolon on 01-17-2023 Neutrophils (Bld) [#/Vol] 4.3 10*3/uL Normal 1.8-7.7 [facility] Comment on above: Performed By: #### C TUNDE CMP, PP #### [facility] [address] [place] [address] No Panel InformationOrdered By: Cheko Rolon on 01-17-2023 Estimated GFR (CKD-EPI) > 60.0 mL/Min [facility] Creatinine Clearance (Chem 60.75 [facility] Nucleated erythrocytes [Pres ence] in Blood by Automated countOrdered By: Cheko Rolon on 01-17-2023 Nucleated RBC Auto Ql (Bld) 0.0 /100{WBC} 0-0.5 [facility] Platelet mean volume [Entiti c volume] in Blood by Automated countOrdered By: Cheko Rolon on 01-17-2023 Platelet mean volume (Bld) [Entitic vol] 8.3 fL Normal 6.3-10.7 [facility] Comment on above: Performed By: #### C JONATHAN GRIFFITHS, PP #### [facility] [address] Platelets [#/volume] in Bloo d by Automated countOrdered By: Cheko Rolon on 01-17-2023 Platelets (Bld) [#/Vol] 219 10*3/uL Normal 150-450 [facility] Comment on above: Performed By: #### C JONATHAN GRIFFITHS, PP #### [facility] [address] Potassium [Moles/volume] in Serum or PlasmaOrdered By: Cheko Rolon on 01-17-2023 Potassium [Moles/Vol] 3.4 mmol/L Low 3.5-5.1 [facility] Comment on above: Performed By: #### C JONATHAN GRIFFITHS, PP #### [facility] [address] Protein [Mass/volume] in Ser um or PlasmaOrdered By: Cheko Rolon on 01-17-2023 Protein [Mass/Vol] 6.2 g/dL Low 6.4-8.9 [facility] Comment on above: Performed By: #### C JONATHAN GRIFFITHS, PP #### [address] Prothrombin time (PT)Ordered By: Cheko Rolon on 01-17-2023 PT Coag (PPP) [Time] 11.8 s Normal 9.0-12.9 [facility] Comment on above: A hematocrit value g reater than 55% may lead to inaccurate results in coagulation testing. Patients having hematocrit values >55% require a special collection tube for coagulation studies. Please contact the laboratory at [phone] for redraw instructions. Result Comment: A he matocrit value greater than 55% may lead to inaccurate results in coagulation testing. Patients having hematocrit values >55% require a special collection tube for coagulation studies. Please contact the laboratory at [phone] for redraw instructions. Performed By: #### C JONATHAN GRIFFITHS, PP #### [address] Serum globulin measurement b y calculation (mass/volume)Ordered By: Cheko Rolon on 01-17-2023 Globulin (S) [Mass/Vol] 2.5 g/dL [facility] Comment on above: Performed By: #### C JONATHAN GRIFFITHS, PP #### [address] Serum or plasma albumin/glob ulin mass ratioOrdered By: Cheko Rolon on 01-17-2023 Albumin/Globulin [Mass ratio] 1.5 {ratio} [facility] Comment on above: Performed By: #### C JONATHAN GRIFFITHS, PP #### [address] Serum or plasma anion gap de terminationOrdered By: Cheko Rolon on 01-17-2023 Anion gap [Moles/Vol] 9.7 mmol/L Normal 6.0-15.0 [facility] Comment on above: Performed By: #### C JONATHAN GRIFFITHS, PP #### [address] Sodium [Moles/volume] in Ser um or PlasmaOrdered By: Cheko Rolon on 01-17-2023 Sodium [Moles/Vol] 139 mmol/L Normal 136-145 [facility] Comment on above: Performed By: #### C JONATHAN GRIFFITHS, PP #### [address] Urea nitrogen [Mass/volume] in Serum or PlasmaOrdered By: Cheko Rolon on 01-17-2023 Urea nitrogen [Mass/Vol] 11 mg/dL Normal 7-25 [facility] Comment on above: Performed By: #### C JONATHAN GRIFFITHS, PP #### [address] C Urineon 12-20-2022 Bacteria identified Cx Nom (U) Microbiology PROCEDURE: Urine Culture [R1] SOURCE: U CleanCatch BODY SITE: COLLECTED DATE/TIME: 12/18/2022 12:00 EDT RECEIVED DATE/TIME: 12/18/2022 15:19 EDT START DATE/TIME: 12/18/2022 15:19 EDT FREE TEXT SOURCE: MARLY MORFIN, SAM LUKE MD, SAM FINAL REPORTS Final Report [] Verified Date/Time: 12/20/2022 08:58 EDT No growth at 2 days. Performing Locations R1: This test was performed at: [facility], [address] [place] [address], [facility] , , [facility] [facility] Comment on above: Performed By: #### 2 [id number] ####[facility] [address] [place] [address] Physician Orderon 12-18-2022 Physician Order [id number]#[id number]:12 7 Normal [facility] URINALYSISOrdered By: Shelton Arreguin on 12-18-2022 Bacteria LM Ql (Urine sed) Trace /HPF Normal Trace/HPF [facility] UA Auto SS Bilirubin Ql (U) Negative (12/18/22 12:00 PM) Normal Negative [facility] UA Auto SS Clarity (U) Clear (12/18/22 12:00 PM) Normal Clear [facility] UA Auto SS Color (U) Yellow (12/18/22 12:00 PM) Normal Yellow [facility] UA Auto SS Epithelial cells.squamous LM.HPF (Urine sed) [#/Area] 3-4 /HPF Normal 0-2/HPF [facility] UA Aut o SS Glucose Test strip (U) [Mass/Vol] Negative (12/18/22 12:00 PM) Normal Negative [facility] UA Auto SS Hemoglobin Ql (U) Trace *ABN* (12/18/22 12:00 PM) Invalid Interpretation Code Negative [facility] UA Auto SS Ketones (U) [Mass/Vol] Negative (12/18/22 12:00 PM) Normal Negative [facility] UA Auto SS Alto.plasma/Alto .RBC (Bld) [Mass ratio] 0-3 /HPF Normal 0-3/HPF [facility] UA Auto SS Nitrite Ql (U) Negative (12/18/22 12:00 PM) Normal Negative [facility] UA Auto SS pH (U) 5.5 *NA* (12/18/22 12:00 PM) Invalid Interpretation Code 5.0 - 9.0 [facility] UA Auto SS Protein (U) [Mass/Vol] Negative (12/18/22 12:00 PM) Normal Negative [facility] UA Auto SS Specific gravity (U) [Rel density] 1.015 *NA* (12/18/22 12:00 PM) Invalid Interpretation Code 1.005 - 1.030 [facility] UA Auto SS UA Spec Desc Clean Catch (12/18/22 12:00 PM) Normal [facility] UA Auto SS Urobilinogen Qn (U) 0.7121522 {Gilma'U}/dL Normal 0.0 - 1.0 EU/dL [facility] UA Auto SS WBC Auto Ql (U) Negative (12/18/22 12:00 PM) Normal Negative [facility] UA Auto SS WBC LM.HPF (Urine sed) [#/Area] 0-5 /HPF Normal 0-5/HPF [facility] UA Auto SS Urinalysison 12-18-2022 Bacteria LM Ql (Urine sed) TRACE Normal Trace [facility] Comment on above: Performed By: #### 2 [id number], [id number], 81284929, 1829430, 7471380, [id number] #### [facility] [address] [place] [address] Bilirubin Ql (U) Negative Normal Negative [facility] Comment on above: Performed By: #### 2 311175, [id number], 95281419, 4869692, 2266819, [id number] #### [facility] [address] [place] [address] Clarity (U) CLEAR Normal Clear [facility] Comment on above: Performed By: #### 2 976557, 59815524, 17529220, 7832080, 2059852, [id number] #### [facility] [address] [place] [address] Color (U) YELLOW Normal Yellow [facility] Comment on above: Performed By: #### 2 586036, 97684050, 81674665, 3058699, 8393009, [id number] #### [facility] [address] [place] [address] Epithelial cells.squamous LM.HPF (Urine sed) [#/Area] 3-4 Normal 0-2 [facility] Comment on above: Performed By: #### 2 681466, 53054377, 52420800, 3616663, 7546850, [id number] #### [facility] [address] [place] [address] Glucose Test strip (U) [Mass/Vol] Negative Normal Negative [facility] Comment on above: Performed By: #### 2 994004, 79825783, 24933792, 6996145, 1434028, 46163535 #### [facility] [address] [place] [address] Hemoglobin Ql (U) TRACE Abnormal Negative [facility] Comment on above: Performed By: #### 2 122956, 57212265, 02778246, 6556221, 4507396, 53502347 #### [facility] [address] [place] [address] Ketones (U) [Mass/Vol] Negative Normal Negative [facility] Comment on above: Performed By: #### 2 771006, 99458432, 18865970, 9581108, 3421202, 63772635 #### [facility] [address] [place] [address] Alto.plasma/Alto .RBC (Bld) [Mass ratio] 0-3 Normal 0-3 [facility] Comment on above: Performed By: #### 2 556716, 30809016, 67348969, 6429452, 1815455, 98293300 #### [facility] [address] [place] [address] Nitrite Ql (U) Negative Normal Negative [facility] Comment on above: Performed By: #### 2 525858, 31082202, 98788820, 5157753, 5166909, 95287288 #### [facility] [address] [place] [address] pH (U) 5.5 [pH] Invalid Interpretation Code 5.0-9.0 [facility] Comment on above: Performed By: #### 2 583212, 53567878, 99254825, 5761939, 3289824, 03359166 #### [facility] [address] [place] [address] Protein (U) [Mass/Vol] Negative Normal Negative [facility] Comment on above: Performed By: #### 2 633792, 39300681, 62263580, 1946225, 6481885, 57513894 #### [facility] [address] [place] [address] Specific gravity (U) [Rel density] 1.015 Invalid Interpretation Code 1.005-1.03 0 [facility] Comment on above: Performed By: #### 2 154202, 24837201, 46923717, 3426301, 2355550, 84583984 #### [facility] [address] [place] [address] Type of Urine collection method Clean Catch Normal [facility] Comment on above: Performed By: #### 2 053078, 98398252, 04783491, 9031156, 8399379, 58760177 #### [facility] [address] [place] [address] Urobilinogen Qn (U) 0.2 {Gilma'U}/dL Normal 0.0-1.0 [facility] Comment on above: Performed By: #### 2 801178, 99551548, 69541947, 2927321, 9366164, 04741885 #### [facility] [address] [place] [address] WBC Auto Ql (U) Negative Normal Negative [facility] Comment on above: Performed By: #### 2 811503, 33665254, 32225336, 4872367, 0581493, 03604936 #### [facility] [address] [place] [address] WBC LM.HPF (Urine sed) [#/Area] 0-5 Normal 0-5 [facility] Comment on above: Performed By: #### 2 196276, 74249606, 51206668, 6042760, 9958539, 79132023 #### [facility] [address] [place] [address] DNR - Do Not Resuscitateon 0 11-30-2022 DNR - Do Not Resuscitate [id number]#1.00CD:1 27 Normal [facility] Discharge Instructionson Discharge Instructions [id number]#1.00CD:1 27 Normal [facility] Insurance Correspondence Off iceon 11-30-2022 Insurance Correspondence Office [id number]:1 27 Normal [facility] Inpatient Clinical Summaryon 11-29-2022 Inpatient Clinical Summary [address] [address] Clinical Summary Person Information: Name: NICOLE LOMELI Age: 72 Years : 1950 Sex: Female PCP: PARRIS GUZMAN DO Marital Status: Phone: [phone] Race: White Ethnicity: Non- or Language: Kyrgyz Visit Id: Visit Reason: Cough; Decreased oxygen level; Chest pain; Shortness of breath; CHEST PAIN, SOB Speciality: Acuity: Enc Type: Inpatient Med Service: Medical Arrival: 11/25/2022 14:51:48 Discharge: Dispo Type: Admitted as IP to this Hosp Address: [address] [place] [id number] Provider Notes: Diagnosis: 1:Acute on chronic respiratory failure with hypoxia; 2:Acute exacerbation of chronic obstructive pulmonary disease (COPD); 3:Other chest pain; 4:Hyperlipidemia; 5:History of CVA in adulthood; 6:Depression with anxiety; 7:Chronic GERD; 8:Obesity due to excess calories; 9:No contraindication to deep vein thrombosis (DVT) prophylaxis Problems Active Hyperlipidemia History of CVA in adulthood Depression with anxiety Chronic GERD Obesity due to excess calories Urge incontinence Former smoker Urinary urgency Nocturia Urinary frequency Other post-traumatic urethral stricture, female Stress incontinence CVA (cerebral vascular accident) COPD (chronic obstructive pulmonary disease) Depression Hyperlipidemia Smoking Status: Former Smoker Functional Status: Sensory Deficits: Hearing deficit, left ear History of Falls: Mobility Assistance Prior to Admission: Partial assistance ADLs: Minimal assistance Current Level of Assistance for Self-Care/Mobility: Cognitive Status: Oriented x 3 Allergies No Known Allergies Measurements: Height: 157.48 cm Weight: 79.7 kg Blood Pressure: 150 mmHg / 82 mmHg BMI: 31.65 kg/m2 Procedures No Procedures Documented Immunizations No Immunizations Documented This Visit Final Med List: acetaminophen-oxycodone (Percocet 5 mg-325 mg oral tablet) 1 Tablets By Mouth every 6 hours as needed as needed for pain. albuterol (albuterol 0.083% Inh Kaylee 3 mL) 0.083% - 3mL dosing units Inhalation every 4 hours as needed. albuterol-ipratropium (Combivent Respimat) 1 Puffs Inhalation. alprazolam (Xanax 0.25 mg Tab) 1 Tablets By Mouth 2 times a day as needed as needed for anxiety. aripiprazole (Abilify 5 mg Tab) 1 Tablets By Mouth every day. clopidogrel (Plavix 75 mg Tab) 1 Tablets By Mouth. ergocalciferol (Vitamin D 50,000 intl units (1.25 mg) oral capsule) 1 Capsules By Mouth every week. fenofibrate (TriCor 145 mg oral tablet) 1 Tablets By Mouth every day. fluoxetine (Prozac 40 mg Cap) 1 Capsules By Mouth every day. fluticasone-vilanterol (Breo Ellipta 100 mcg-25 mcg inhalation powder) 1 Puffs Inhalation every day. 30 dose unit. Refills: 2. omeprazole (omeprazole 20 mg Cap-EC) 1 Capsules By Mouth every day. oxybutynin (oxybutynin 5 mg Tab) 1 Tablets By Mouth every day as needed for urinary discomfort. predniSONE (predniSONE 10 mg Tab) 1 Dose Separtor By Mouth As Directed. Take 3 tabs by mouth daily x3 days, then 2 tabs daily x3 days, then 1 tab daily x3 days.. Refills: 0. raloxifene (Evista 60 mg Tab) 1 Tablets By Mouth every day. simvastatin (simvastatin 40 mg Tab) 1 Tablets By Mouth once a day (at bedtime). tizanidine (Zanaflex) zolpidem (Ambien 10 mg Tab) 1 Tablets By Mouth once a day (at bedtime) as needed for sleep. Care Team Members: Attending Physician: Tariq ALCALA MD Consulting Physician: Francisco Dill Jr., PA-C Referring Physician: Follow up: With: Address: When: [facility] With: Address: When: PARRIS THOMAS [address] [place], [place] [id number] [facility] (1) Patient Education Information: Normal [facility] Inpatient Patient Summaryon 11-29-2022 Inpatient Patient Summary NICOLE LOMELI :1950 Visit Date:11/25/2022 Inpatient Discharge Instructions Your Care Team Admitting Physician - Tariq ALCALA MD Consulting Physician - Francisco Dill Jr., PA-C Reason for Your Visit I could not breath and couging so hard Your Diagnosis Acute on chronic respiratory failure with hypoxia Acute exacerbation of chronic obstructive pulmonary disease (COPD) Other chest pain Hyperlipidemia History of CVA in adulthood Depression with anxiety Chronic GERD Obesity due to excess calories No contraindication to deep vein thrombosis (DVT) prophylaxis Chest pain Cough Decreased oxygen level Shortness of breath Tests Performed .Manual Abs Automated Diff Blood Gas Art, with Lytes, Gluc, Lact BMP BMP BNP CBC w/ Auto Diff eGFR Hepatic Function Panel Manual Diff Procalcitonin PT & PTT Respiratory Panel by PCR Troponin 0 Hr. Troponin 3 Hr. Troponin 6 Hr. Troponin 9 Hr. CTA Chest Echo Transthoracic Complete XR Chest Single View This Is Your Medications List acetaminophen-oxycodone (Percocet 5 mg-325 mg oral tablet) albuterol (albuterol 0.083% Inh Kaylee 3 mL) albuterol-ipratropium (Combivent Respimat) alprazolam (Xanax 0.25 mg Tab) aripiprazole (Abilify 5 mg Tab) clopidogrel (Plavix 75 mg Tab) ergocalciferol (Vitamin D 50,000 intl units (1.25 mg) oral capsule) fenofibrate (TriCor 145 mg oral tablet) fluoxetine (Prozac 40 mg Cap) fluticasone-vilanterol (Breo Ellipta 100 mcg-25 mcg inhalation powder) omeprazole (omeprazole 20 mg Cap-EC) oxybutynin (oxybutynin 5 mg Tab) predniSONE (predniSONE 10 mg Tab) raloxifene (Evista 60 mg Tab) simvastatin (simvastatin 40 mg Tab) tizanidine (Zanaflex) zolpidem (Ambien 10 mg Tab) Procedure History Cardiac catheterization, left heart (12/09/2019), trans-oburator mid uretheral sling bladder suspension (10/15/2018), Appendectomy, Cholecystectomy, Thumb. Discharge Vitals Temperature (Axillary) 36.6 ?C Heart Rate (Monitored) 77 Respiratory Rate 20 Blood Pressure 150/82 Weight 79.7 kg What to do next Instructions From Your Doctor Event Name Event Result Discharge Activity Ambulate as tolerated Discharge Restrictions No restrictions Discharge Diet(s) Regular Pharmacy Information [facility] New Follow Up Appointments after Discharge Follow Up with [facility] When: Follow Up with PARRIS GUZMAN When: In 0 days Where: [address] [facility] [address] [place] [address]- Business (1) The Following Services Have Been Arranged for You Prof Skilled Services, Arranged - Physical Therapy, Nursing Medications What How Much When Instructions Next Dose Unchanged acetaminophen-oxycodone (Percocet 5 mg-325 mg oral tablet) 1 Tablets By Mouth Every 6 hours as needed for as needed for pain as needed Unchanged albuterol (albuterol 0.083% Inh Kaylee 3 mL) 0.083% - 3mL dosing units Inhalation Every 4 hours as needed as needed Unchanged albuterol-ipratropium (Combivent Respimat) 1 Puffs Inhalation as needed Unchanged alprazolam (Xanax 0.25 mg Tab) 1 Tablets By Mouth 2 times a day as needed for as needed for anxiety as needed Unchanged aripiprazole (Abilify 5 mg Tab) 1 Tablets By Mouth Every day 11/30 9am Unchanged clopidogrel (Plavix 75 mg Tab) 1 Tablets By Mouth every other day 12/01 9am Unchanged ergocalciferol (Vitamin D 50,000 intl units (1.25 mg) oral capsule) 1 Capsules By Mouth Every week 11/30 9am Unchanged fenofibrate (TriCor 145 mg oral tablet) 1 Tablets By Mouth Every day 11/30 9am Unchanged fluoxetine (Prozac 40 mg Cap) 1 Capsules By Mouth Every day 11/30 9a Unchanged fluticasone-vilanterol (Breo Ellipta 100 mcg-25 mcg inhalation powder) 1 Puffs Inhalation Every day 30 dose unit resume Unchanged omeprazole (omeprazole 20 mg Cap-EC) 1 Capsules By Mouth Every day 11/30 9am Unchanged oxybutynin (oxybutynin 5 mg Tab) 1 Tablets By Mouth Every day as needed for for urinary discomfort 11/30 9am Unchanged raloxifene (Evista 60 mg Tab) 1 Tablets By Mouth Every day 11/30 9am Unchanged simvastatin (simvastatin 40 mg Tab) 1 Tablets By Mouth Once a day (at bedtime) 11/29 9pm Unchanged tizanidine (Zanaflex) as needed Unchanged zolpidem (Ambien 10 mg Tab) 1 Tablets By Mouth Once a day (at bedtime) as needed for for sleep as needed Pharmacy Information [facility]: [address] [place] [id number] [phone] Test Results CBC BMP WBC: 13.5 E9/L High (11/26/22 05:56:00) Glucose Lvl: 147 mg/dL (11/26/22 05:56:00) RBC: 3.4 E12/L Low (11/26/22 05:56:00) BUN: 15 mg/dL (11/26/22 05:56:00) HGB: 11.2 gm/dL Low (11/26/22 05:56:00) Creatinine: 0.7 mg/dL (11/26/22 05:56:00) Hct: 32.5 % Low (11/26/22 05:56:00) BUN/Creat Ratio: 21 High (11/26/22 05:56:00) MCV: 95.6 fL (11/26/22 05:56:00) Sodium Lvl: 136 mmol/L (11/26/22 05:56:00) MCH: 32.9 pg (11/26/22 05:56:00) Potass (more content not included)... Normal [facility] Inpatient Patient Summary [address] [address] Patient Discharge Instructions PERSON INFORMATION Name: NICOLE LOMELI Date of : 1950 Current Date: 11/29/2022 16:42:12 PHYSICIANS Admitting Physician: FREDRICK MORFIN, Tariq Primary Care Physician: PARRIS GUZMAN DO PCP Comment: Discharge Diagnosis: 1:Acute on chronic respiratory failure with hypoxia; 2:Acute exacerbation of chronic obstructive pulmonary disease (COPD); 3:Other chest pain; 4:Hyperlipidemia; 5:History of CVA in adulthood; 6:Depression with anxiety; 7:Chronic GERD; 8:Obesity due to excess calories; 9:No contraindication to deep vein thrombosis (DVT) prophylaxis Condition at Discharge: Stable NICOLE LOMELI Maryjane has been given the following list of follow-up instructions, prescriptions, and patient education materials: PATIENT FOLLOW-UP INFORMATION Diet: Regular Discharge Activity: Ambulate as tolerated Discharge Restrictions: No restrictions Wound Care Instructions: Remove Your Dressing In Days Call Your Doctor For: IF UNABLE TO CONTACT YOUR PHYSICIAN AND YOU FEEL IT IS AN EMERGENCY, GO TO THE NEAREST EMERGENCY ROOM OR CALL 911 Home Treatment: Devices/Equipment: Nebulizer, Oxygen Special Services: Additional Instructions: Primary Care Physician to provide the following pending test results: Follow up: With: Address: When: [facility] With: Address: When: PARRIS GUZMAN [facility] [address] [address] Business (1) In the event that this physician does not participate in your insurance network, please consult with your insurance company to find a nearby participating provider. Comment: YANI Kim ROSALIE A, have received the attached patient education materials/instructions and have verbalized understanding: Patient Signature ____ Date Clinican/Nurse Signature Date HERE ARE THE MEDICATION CHANGES THAT OCCURRED DURING YOUR HOSPITAL STAY Medications to Continue with No Changes [facility], [address] [place] [id number], [phone] predniSONE (predniSONE 10 mg Tab) 1 Dose Separtor By Mouth As Directed. Take 3 tabs by mouth daily x3 days, then 2 tabs daily x3 days, then 1 tab daily x3 days.. Refills: 0. Last Dose: Next Dose: Other Medications acetaminophen-oxycodone (Percocet 5 mg-325 mg oral tablet) 1 Tablets By Mouth every 6 hours as needed as needed for pain. Last Dose: Next Dose: albuterol (albuterol 0.083% Inh Kaylee 3 mL) 0.083% - 3mL dosing units Inhalation every 4 hours as needed. Last Dose: Next Dose: albuterol-ipratropium (Combivent Respimat) 1 Puffs Inhalation. Last Dose: Next Dose: alprazolam (Xanax 0.25 mg Tab) 1 Tablets By Mouth 2 times a day as needed as needed for anxiety. Last Dose: Next Dose: aripiprazole (Abilify 5 mg Tab) 1 Tablets By Mouth every day. Last Dose: Next Dose: clopidogrel (Plavix 75 mg Tab) 1 Tablets By Mouth., takes every other day Last Dose: Next Dose: ergocalciferol (Vitamin D 50,000 intl units (1.25 mg) oral capsule) 1 Capsules By Mouth every week., takes q saturday Last Dose: Next Dose: fenofibrate (TriCor 145 mg oral tablet) 1 Tablets By Mouth every day. Last Dose: Next Dose: fluoxetine (Prozac 40 mg Cap) 1 Capsules By Mouth every day. Last Dose: Next Dose: fluticasone-vilanterol (Breo Ellipta 100 mcg-25 mcg inhalation powder) 1 Puffs Inhalation every day. 30 dose unit. Refills: 2. Last Dose: Next Dose: omeprazole (omeprazole 20 mg Cap-EC) 1 Capsules By Mouth every day. Last Dose: Next Dose: oxybutynin (oxybutynin 5 mg Tab) 1 Tablets By Mouth every day as needed for urinary discomfort. Last Dose: Next Dose: raloxifene (Evista 60 mg Tab) 1 Tablets By Mouth every day. Last Dose: Next Dose: simvastatin (simvastatin 40 mg Tab) 1 Tablets By Mouth once a day (at bedtime). Last Dose: Next Dose: tizanidine (Zanaflex) Last Dose: Next Dose: zolpidem (Ambien 10 mg Tab) 1 Tablets By Mouth once a day (at bedtime) as needed for sleep. Last Dose: Next Dose: Comment: MEDICATION LIST PROVIDED FOR YOU IS A LIST OF YOUR CURRENT MEDICATIONS. PLEASE C (more content not included)... [facility] Interdisciplinary Note - Shlomo e Manageron 11-29-2022 Interdisciplinary Note - Analog Design Engineer CRM to room to discuss DC planning Patient is awake, alert and oriented. Patient is inpatient and hear for Chest pain and COPD. Patient has pulmonology on case. Patient updated that CRM spoke with Dr Hong who saw patient. Patient is pending [facility]. Patient and family goals are home with [facility]. She was ordered for [facility], this will be canceled if sign on with hospice. Patient daughter is flying in from [place], unsure of meeting time. CRM did provide contact info, white board updated. DC today or 11/30 [facility] Comment on above: Result Comment: Elec tronically Signed By: Elvira Chin\.br\Date and Time Signed: 11/29/22 10:48 EDT Monitor Recordon 11-29-2022 Monitor Record [id number]#[id number]:1 27 [facility] Monitor Record [id number]#1.00CD:1 27 [facility] Monitor Record [id number]:1 [facility] Monitor Record [id number]#1.00CD:1 27 [facility] Progress Note-Physicianon Progress Note-Physician Subjective Doing well voicing no complaints overnight or this morning; pain better after we made some adjustments last night Anxious for discharge Review of Systems Constitutional: no fever, no chills, no sweats, no weakness Respiratory: no shortness of breath, no cough, no orthopnea, no wheezing Cardiovascular: no chest pain, no palpitations, no edema Additional ROS info: Except as noted in the above Review of Systems and in the History of Present Illness all other systems have been reviewed and are negative or noncontributory. Objective Vitals & Measurements T: 36.3 ?C(Oral) TMIN: 36.3 ?C(Oral) TMAX: 36.8 ?C(Oral) HR: 72(Monitored) RR: 20 BP: 130/71 SpO2: 91% WT: 79.7 kg Intake & Output This visit (24 hour periods starting at 07:00 EDT) 11/29/22 * 11/28/22 11/27/22 Total Summary Intake mL 1 54 106 Output mL -- 300 200 Fluid Balance 1 -246 -94 Intake (5) Oral Intake mL -- 50 100 ketorolac mL -- -- 1 methylPREDNISolone mL 1 3 3 morphine mL -- 1 -- ondansetron mL -- -- 2 Total 1 54 106 Output (1) Urine Voided mL -- 300 200 Total -- 300 200 Counts (1) Urine Count -- -- 1 * This column has not completed the indicated time period. Physical Exam Constitutional: Awake and alert; oriented x3, appears in distress with mild respiratory distress as well Head/neck: Neck supple with no palpable lymphadenopathy, bruits or masses; trachea midline Chest/lungs: Diminished but clear with no wheezes or rhonchi; mild respiratory distress with tachypnea; no point tenderness noted Cardiovascular: Regular rate and rhythm; normal S1-S2 with no murmur; no pitting edema 2+ pulses bilaterally Gastrointestinal: Soft, nontender, nondistended, positive bowel sounds Neurological: Nonfocal; cranial nerves II through XII appear intact Psychological: Pleasant affect Lab Results No qualifying data available. Diagnostic Results ECHO: Interpretation Summary Ejection Fraction = 60-65%. Normal LV and RV. No significant valve disease. Normal estimated PA pressure. Impaired diastolic relaxation. No change from prior. Assessment/Plan 72-year-old female admitted for acute on chronic respiratory failure with hypoxia in the setting of COPD exacerbation. Comorbidities include COPD, history of CVA in the past, depression with anxiety/panic, hyperlipidemia, acid reflux and previous smoker. 1. Acute on chronic respiratory failure with hypoxia (J96.21: Acute and chronic respiratory failure with hypoxia) We will discontinue antibiotics after today Continue supplemental O2 currently she is at 3 L nasal cannula with sats into the low 90s IV methylprednisolone 40 mg every 8 hours along with respiratory treatments with DuoNebs 4 times daily and albuterol as needed 2. Acute exacerbation of chronic obstructive pulmonary disease (COPD) (J44.1: Chronic obstructive pulmonary disease with (acute) exacerbation) See above 3. Other chest pain (R07.89: Other chest pain) Stable 4. Hyperlipidemia (E78.5: Hyperlipidemia, unspecified) On simvastatin 5. History of CVA in adulthood (Z86.73: Personal history of transient ischemic attack (TIA), and cerebral infarction without residual deficits) On Plavix, fenofibrate and simvastatin 6. Depression with anxiety (F41.8: Other specified anxiety disorders) Patient has Xanax and Prozac 7. Chronic GERD (K21.9: Gastro-esophageal reflux disease without esophagitis) 8. Obesity due to excess calories (E66.09: Other obesity due to excess calories) 9. No contraindication to deep vein thrombosis (DVT) prophylaxis (Z78.9: Other specified health status) Orders: morphine, 2 mg = 1 mL, Injection, IV Push, q4hr PRN Pain 8-10 for 5 day(s), Stop date 12/03/22 18:21:00 EDT, Routine, Start date 11/28/22 18:22:00 EDT, 11/28/22 18:22:00 EDT tramadol, 50 mg = 1 tab(s), Tab, Oral, q6hr PRN Pain 4-7 for 7 day(s), Stop date 12/05/22 18:21:00 EDT, Routine, Start date 11/28/22 18:22:00 EDT, 11/28/22 18:22:00 EDT Echo Transthoracic Complete PLAN: 1. Doing well on 3 L 2. We will discontinue the ceftriaxone and azithromycin after today given a 5-day course 3. Continue IV methylprednisolone 4. DuoNebs 4 times daily and albuterol as needed every 2 hours 5. She is on Xanax, Prozac as well as fenofibrate and simvastatin as well last Plavix 6. 2D echo noted 7. DVT prophylaxis with SCDs and subcu heparin 8. Ulcer prophylaxis with PPI 9. Meeting with [facility] this afternoon and daughter flying in Discharge plan Problem List/Past Medical History Ongoing Chronic GERD COPD (chronic obstructive pulmonary disease) CVA (cerebral vascular accident) Depression Depression with anxiety Former smoker History of CVA in adulthood Hyperlipidemia Hyperlipidemia Nocturia Obesity due to excess calories Other post-traumatic urethral stricture, female Stress incontinence Urge incontinence (more content not included)... [facility] Comment on above: Result Comment: Elec tronically Signed By: Kodi Hong DO\.br\Date and Time Signed: 11/29/22 15:09 EDT Progress Note-Physician Basic Information Pt is a 72y F with past medical history significant for severe COPD (last PFTs 09/28, FEV1 43%), chronic hypoxemic respiratory failure on 3L NC, former smoker (quit 2014), CVA, GERD, depression, and HLD who presented to the ED on 11/25 with complaints of worsening SOB and chest pain for the past 4 days. Pt states she uses 3L NC for most the day and all night at baseline. Over the last 4-5 days she has experienced worsening productive cough, chills, fatigue, and SOB. She reports that her sputum has been yellow-green and thick. She also reports some substernal chest pain that radiates to her Lt lateral ribs and her lower back. She denies any fevers, abdominal pain, nausea, vomiting, or diarrhea. In the ED, pt was found to be just below her baseline O2 requirement. She was placed on 4L NC and given a breathing treatment with improvement in her O2 sats. Laboratory workup significant for WBC 17.3, otherwise unremarkable. CXR in the ED did not reveal any acute infiltrates. CTA chest obtained which did not reveal any PE, but did reveal b/l infiltrates concerning for pneumonia. Pt was started on empiric abx, steroids, and admitted to the hospitalist service for further management. Pulmonary was consulted to assist in management of the pt's acute on chronic hypoxemic respiratory failure. 11/26: Pt appears anxious and tearful. She states that her SOB does not feel any better today. She is still having a productive cough. She has anxiety at baseline. She still complains of chest pain. Her troponins have been negative. I suspect her pain is related to costochondritis from coughing. Otherwise, she denies any new complaints. Pt is currently on 5L NC. 11/27: Pt is less anxious today but she does state that her chest pain is worse today. Her pain is in the same location but now she describes it as 8/10, pressure-like. EKG obtained which shows some T-wave inversion V1-V4. I am unable to pull up an old EKG to compare. Troponins obtained which continue to be negative. Echo pending. Pt's reports that the pt had a stress test within the last year at [facility] which he states didn't show anything. Will trial some toradol or morphine to see if this helps her pain. Respiratory mccauley, pt has been weaned to 4L NC. She reports that her cough has become less productive than yesterday. 11/28: Pt states she is feeling somewhat better today. She is less anxious and her chest pain is pretty much resolved. She is currently on 3L NC. Her sputum cx is neg. She denies any new complaints today. 11/29 afebrile overnight. at bedside during my assessment states they are meeting with hospice this afternoon. She remains on 3 L nasal cannula, denies any complaints today. Appears comfortable Objective Vitals & Measurements T: 36.5 ?C(Axillary) TMIN: 36.3 ?C(Axillary) TMAX: 36.8 ?C(Oral) HR: 72(Monitored) RR: 20 BP: 170/99 SpO2: 92% WT: 79.7 kg Intake & Output This visit (24 hour periods starting at 07:00 EDT) 11/29/22 * 11/28/22 11/27/22 Total Summary Intake mL -- 54 106 Output mL -- 300 200 Fluid Balance -- -246 -94 Intake (5) Oral Intake mL -- 50 100 ketorolac mL -- -- 1 methylPREDNISolone mL -- 3 3 morphine mL -- 1 -- ondansetron mL -- -- 2 Total -- 54 106 Output (1) Urine Voided mL -- 300 200 Total -- 300 200 Counts (1) Urine Count -- -- 1 * This column has not completed the indicated time period. Physical Exam General: No acute distress, on 3 L nasal cannula Skin: Warm, dry Neck: Trachea midline Eye: Sclera anicteric ENMT: Moist mucous membranes Cardiovascular: Regular rate and rhythm. No murmurs, rubs, or gallops. No BLE edema. Respiratory: Scattered crackles b/l. No wheezing. No stridor. No accessory muscle use. Gastrointestinal: Soft, non-tender, non-distended Extremities: No deformity Neurological: Awake and alert. Following commands. No focal deficit appreciated. Lab Results No qualifying data available. Assessment/Plan Acute on chronic respiratory failure with hypoxia (J96.21: Acute and chronic respiratory failure with hypoxia) Suspect 2/2 CAP c/b AECOPD H/o severe COPD (last PFTs 09/28, FEV1 43%) Chronic hypoxemic respiratory failure on 3L NC Former smoker (quit 2014) Plan: - Currently on 3L NC - Titrate O2 for sats 89-94% - Continue bronchodilators - Continue solumedrol 40mg q8h - Procal neg, RVP neg, Sputum cx neg - Leukocytosis on presentation, b/l infiltrates on CTA chest, and infectious symptoms --> Continue ceftriaxone and azithromycin for CAP coverage - Continue home regimen for anxiety --> could consider morphine if continued respiratory distress - Echo: LVEF 60-65%, Grade I LVDD - Encourage IS and OOB -Patient and family meeting with hospice this afternoon No contraindication to deep vein thrombosis (DVT) prophylaxis (Z78.9: Other specified health status) Heparin sq Orders: Incentive Spiromet (more content not included)... [facility] Comment on above: Result Comment: Elec tronically Signed By: Vanessa Briscoe\.br\Date and Time Signed: 11/29/22 13:24 EDT Interdisciplinary Note - Shlomo e Manageron 11-28-2022 Interdisciplinary Note - Analog Design Engineer CRM spoke with patient in room. Patient is alert and oriented and participates in discharge planning. No family in room. Patient white board updated, and CRM contact information provided. Discussed CRM spoke with Dr Hong who saw patient earlier today and will stay today and anticipated dc in 1-2 days. patent is on 4L oxygen and used 3L at home. Patient has been set up with [facility] for RN/PT. Patient denies any other questions or needs and she will update her spouse. Reviewed Medicare rights, she denies any questions. 1155- CRM spoke with patient in room, no family present. Discussed CRM had a voice message from daughter Debbi Cardenas about wanting to have [facility] meeting and to go home with hospice care. Patient is agreeable and states her daughter will be here tomorrow. CRM will call daughter and arrange for [facility] meeting. 1205- CRM called daughter Debbi Cardenas and discussed Hospice and patient did agree that is what she wants. Daughter is flying in tomorrow from [place] at 11:15 and would like to meet at 1pm in room with goal to have patient home as soon as possible. She states her brother and father will be there during the week to help and she will fly in every weekend to assist. Daughter is aware will not have H/H services if signs on with Hospice and she states her and patient did discuss that and patient told her she does not want to do therapy as it is to tiring. Will make referral to [facility]. [facility] Comment on above: Result Comment: Elec tronically Signed By: Amelia Jensen RN\.br\Date and Time Signed: 11/28/22 12:25 EDT Monitor Recordon 11-28-2022 Monitor Record [id number]:1 27 [facility] Monitor Record [id number]:1 27 [facility] Monitor Record [id number]:1 27 [facility] Monitor Record [id number]:1 27 [facility] Progress Note-Physicianon Progress Note-Physician Assessment/Plan 1. Acute on chronic respiratory failure with hypoxia (J96.21: Acute and chronic respiratory failure with hypoxia) Suspect 2/2 CAP c/b AECOPD H/o severe COPD (last PFTs 09/28, FEV1 43%) Chronic hypoxemic respiratory failure on 3L NC Former smoker (quit 2014) Plan: - Currently on 3L NC - Titrate O2 for sats 89-94% - Continue bronchodilators - Continue solumedrol 40mg q8h - Procal neg, RVP neg, Sputum cx neg - Leukocytosis on presentation, b/l infiltrates on CTA chest, and infectious symptoms --> Continue ceftriaxone and azithromycin for CAP coverage - Continue home regimen for anxiety --> could consider morphine if continued respiratory distress - Echo: LVEF 60-65%, Grade I LVDD - Encourage IS and OOB 9. No contraindication to deep vein thrombosis (DVT) prophylaxis (Z78.9: Other specified health status) Heparin sq Subjective Pt is a 72y F with past medical history significant for severe COPD (last PFTs 09/28, FEV1 43%), chronic hypoxemic respiratory failure on 3L NC, former smoker (quit 2014), CVA, GERD, depression, and HLD who presented to the ED on 11/25 with complaints of worsening SOB and chest pain for the past 4 days. Pt states she uses 3L NC for most the day and all night at baseline. Over the last 4-5 days she has experienced worsening productive cough, chills, fatigue, and SOB. She reports that her sputum has been yellow-green and thick. She also reports some substernal chest pain that radiates to her Lt lateral ribs and her lower back. She denies any fevers, abdominal pain, nausea, vomiting, or diarrhea. In the ED, pt was found to be just below her baseline O2 requirement. She was placed on 4L NC and given a breathing treatment with improvement in her O2 sats. Laboratory workup significant for WBC 17.3, otherwise unremarkable. CXR in the ED did not reveal any acute infiltrates. CTA chest obtained which did not reveal any PE, but did reveal b/l infiltrates concerning for pneumonia. Pt was started on empiric abx, steroids, and admitted to the hospitalist service for further management. Pulmonary was consulted to assist in management of the pt's acute on chronic hypoxemic respiratory failure. 11/26: Pt appears anxious and tearful. She states that her SOB does not feel any better today. She is still having a productive cough. She has anxiety at baseline. She still complains of chest pain. Her troponins have been negative. I suspect her pain is related to costochondritis from coughing. Otherwise, she denies any new complaints. Pt is currently on 5L NC. 11/27: Pt is less anxious today but she does state that her chest pain is worse today. Her pain is in the same location but now she describes it as 8/10, pressure-like. EKG obtained which shows some T-wave inversion V1-V4. I am unable to pull up an old EKG to compare. Troponins obtained which continue to be negative. Echo pending. Pt's reports that the pt had a stress test within the last year at [facility] which he states didn't show anything. Will trial some toradol or morphine to see if this helps her pain. Respiratory mccauley, pt has been weaned to 4L NC. She reports that her cough has become less productive than yesterday. 11/28: Pt states she is feeling somewhat better today. She is less anxious and her chest pain is pretty much resolved. She is currently on 3L NC. Her sputum cx is neg. She denies any new complaints today. Objective Vitals & Measurements T: 36.3 ?C(Axillary) TMIN: 36.3 ?C(Axillary) TMAX: 36.9 ?C(Oral) HR: 82(Monitored) RR: 20 BP: 132/77 SpO2: 97% WT: 78.1 kg Intake & Output This visit (24 hour periods starting at 07:00 EDT) 11/28/22 * 11/27/22 11/26/22 Total Summary Intake mL 1 106 3 Output mL -- 200 200 Fluid Balance 1 -94 -197 Intake (4) Oral Intake mL -- 100 -- ketorolac mL -- 1 -- methylPREDNISolone mL 1 3 3 ondansetron mL -- 2 -- Total 1 106 3 Output (1) Urine Voided mL -- 200 200 Total -- 200 200 Counts (1) Urine Count -- 1 -- * This column has not completed the indicated time period. Physical Exam General: No acute distress Skin: Warm, dry Neck: Trachea midline Eye: Sclera anicteric ENMT: Moist mucous membranes Cardiovascular: Regular rate and rhythm. No murmurs, rubs, or gallops. No BLE edema. Respiratory: Scattered crackles b/l. No wheezing. No stridor. No accessory muscle use. Gastrointestinal: Soft, non-tender, non-distended Extremities: No deformity Neurological: Awake and alert. Following commands. No focal deficit appreciated. Lab Results Troponin: 5.8 pg/mL Low (11/27/22 18:57:00) Problem List/Past Medical History Ongoing Chronic GERD COPD (chronic obstructive pulmonary disease) CVA (cerebral vascular accident) Depression Depression with anxiety Former smoker History of CVA in adulthood Hyperlipidemia Hyperlipidemia Nocturia Obesity due to excess calories Other post-traumatic urethra (more content not included)... [facility] Comment on above: Result Comment: Elec tronically Signed By: Jimbo MORFIN, Jessica Reese\.br\Date and Time Signed: 11/28/22 22:24 EDT Progress Note-Physician Subjective Complaining of pain in her back now she does have chronic pain according to her Still short of breath but no further chest discomfort at this time Review of Systems Constitutional: no fever, no chills, no sweats, no weakness Respiratory: no shortness of breath, no cough, no orthopnea, no wheezing Cardiovascular: no chest pain, no palpitations, no edema Additional ROS info: Except as noted in the above Review of Systems and in the History of Present Illness all other systems have been reviewed and are negative or noncontributory. Objective Vitals & Measurements T: 36.3 ?C(Axillary) TMIN: 36.3 ?C(Axillary) TMAX: 36.9 ?C(Oral) HR: 75(Monitored) RR: 20 BP: 132/77 SpO2: 98% WT: 78.1 kg Intake & Output This visit (24 hour periods starting at 07:00 EDT) 11/28/22 * 11/27/22 11/26/22 Total Summary Intake mL 1 106 3 Output mL -- 200 200 Fluid Balance 1 -94 -197 Intake (4) Oral Intake mL -- 100 -- ketorolac mL -- 1 -- methylPREDNISolone mL 1 3 3 ondansetron mL -- 2 -- Total 1 106 3 Output (1) Urine Voided mL -- 200 200 Total -- 200 200 Counts (1) Urine Count -- 1 -- * This column has not completed the indicated time period. Physical Exam Constitutional: Awake and alert; oriented x3, appears in distress with mild respiratory distress as well Head/neck: Neck supple with no palpable lymphadenopathy, bruits or masses; trachea midline Chest/lungs: Diminished but clear with no wheezes or rhonchi; mild respiratory distress with tachypnea; no point tenderness noted Cardiovascular: Regular rate and rhythm; normal S1-S2 with no murmur; no pitting edema 2+ pulses bilaterally Gastrointestinal: Soft, nontender, nondistended, positive bowel sounds Neurological: Nonfocal; cranial nerves II through XII appear intact Psychological: Pleasant affect Lab Results Troponin: 5.8 pg/mL Low (11/27/22 18:57:00) Assessment/Plan 72-year-old female admitted for acute on chronic respiratory failure with hypoxia in the setting of COPD exacerbation. Comorbidities include COPD, history of CVA in the past, depression with anxiety/panic, hyperlipidemia, acid reflux and previous smoker. 1. Acute on chronic respiratory failure with hypoxia (J96.21: Acute and chronic respiratory failure with hypoxia) Due to COPD exacerbation; there is concern for community-acquired pneumonia but sputum culture no growth to date We will continue ceftriaxone day 4 and oral azithromycin day 4 Continue supplemental O2 when she is at 4 L nasal cannula Maintain respiratory treatment with DuoNebs 4 times daily and albuterol every 2 hours as needed Still on methylprednisolone 40 mg every 8 hours 2. Acute exacerbation of chronic obstructive pulmonary disease (COPD) (J44.1: Chronic obstructive pulmonary disease with (acute) exacerbation) See #1 3. Other chest pain (R07.89: Other chest pain) Currently pain-free 4. Hyperlipidemia (E78.5: Hyperlipidemia, unspecified) On simvastatin 5. History of CVA in adulthood (Z86.73: Personal history of transient ischemic attack (TIA), and cerebral infarction without residual deficits) On Plavix, fenofibrate and simvastatin 6. Depression with anxiety (F41.8: Other specified anxiety disorders) She has Xanax and Prozac on board 7. Chronic GERD (K21.9: Gastro-esophageal reflux disease without esophagitis) Oral PPI with Protonix 8. Obesity due to excess calories (E66.09: Other obesity due to excess calories) 9. No contraindication to deep vein thrombosis (DVT) prophylaxis (Z78.9: Other specified health status) SCDs and subcu heparin Orders: Consult to Hospice Continuous Pulse Oximetry ECG 12 Lead Adult Echo Transthoracic Complete Troponin 3 Hr. Troponin 6 Hr. Troponin 9 Hr. PLAN: 1. Continue respiratory treatments with DuoNebs and albuterol as needed 2. She is down to 4 L nasal cannula 3. Maintain IV methylprednisolone 4. Day 4 IV ceftriaxone and day 4 oral azithromycin 5. Continue other meds from home including her Xanax and Prozac as well as fenofibrate and simvastatin; she is also on Plavix 6. 2D echo pending 7. DVT prophylaxis with SCDs and subcu heparin 8. Ulcer prophylaxis with PPI 9. She is a full code; daughter reached out wanting [facility] hospice consulted Discharge planning in the next 24 to 48 hours Problem List/Past Medical History Ongoing Chronic GERD COPD (chronic obstructive pulmonary disease) CVA (cerebral vascular accident) Depression Depression with anxiety Former smoker History of CVA in adulthood Hyperlipidemia Hyperlipidemia Nocturia Obesity due to excess calories Other post-traumatic urethral stricture, female Stress incontinence Urge incontinence Urinary frequency Urinary urgency Historical GERD (gastroesophageal reflux disease) Smoker Medications Inpatient Abilify 5 mg Tab, 5 mg= 1 tab(s), Oral, Daily acetaminophen (more content not included)... [facility] Comment on above: Result Comment: Elec tronically Signed By: Kodi Hong DO\.br\Date and Time Signed: 11/28/22 12:21 EDT C Sputumon 11-27-2022 Bacteria identified Respiratory culture Nom (Sput) Microbiology PROCEDURE: Sputum Culture [R1] SOURCE: Sputum BODY SITE: COLLECTED DATE/TIME: 11/25/2022 18:32 EDT RECEIVED DATE/TIME: 11/25/2022 20:05 EDT START DATE/TIME: 11/25/2022 20:05 EDT FREE TEXT SOURCE: FREDRICK MORFIN, Tariq ALCALA MD, Tariq FINAL REPORTS Final Report [] Verified Date/Time: 11/27/2022 07:15 EDT 1+ Normal upper respiratory reji isolated STAINS Gram Stain Report [] Verified Date/Time: 11/26/2022 13:44 EDT 2+ White Blood Cells Occasional Gram Positive Cocci Performing Locations R1: This test was performed at: [facility], [address] [place] [address], [id number] , , [facility] Comment on above: Performed By: #### 2 [id number] #### [facility] [address] [place] [id number] CHEMISTRYOrdered By: SYSTEM SYSTEM on 11-27-2022 Troponin I.cardiac [Mass/Vol] 5.80 pg/mL Low 10.10 - 27.10 pg/mL [facility] Remisol Troponin I.cardiac [Mass/Vol] 8.70 pg/mL Low 10.10 - 27.10 pg/mL [facility] Remisol Troponin I.cardiac [Mass/Vol] 9.20 pg/mL Low 10.10 - 27.10 pg/mL [facility] Remisol Interdisciplinary Note - Shlomo e Manageron 11-27-2022 Interdisciplinary Note - Analog Design Engineer CRM spoke with patient in room. Patient is alert and oriented and participates in discharge planning. No family in room. Patient white board updated, and CRM contact information provided. DR Hong in room now and RKG done d/t c/o chest pain and nausea. EKG look good. Patient not ready for dc yet may need 1-2 days yet. Patient is on 4L oxygen and uses 3L at home. Patient updated that [facility] accepts. Reviewed Medicare rights, she denies any questions. [facility] Comment on above: Result Comment: Elec tronically Signed By: Mikey THOMPSON, Amelia\.br\Date and Time Signed: 11/27/22 09:29 EDT Monitor Recordon 11-27-2022 Monitor Record [id number]:1 27 [facility] Monitor Record [id number]#[id number]:1 27 [facility] Progress Note-Physicianon Progress Note-Physician Assessment/Plan 1. Acute on chronic respiratory failure with hypoxia (J96.21: Acute and chronic respiratory failure with hypoxia) Suspect 2/2 CAP c/b AECOPD H/o severe COPD (last PFTs 09/28, FEV1 43%) Chronic hypoxemic respiratory failure on 3L NC Former smoker (quit 2014) Plan: - Currently on 4L NC - Titrate O2 for sats 89-94% - Continue bronchodilators - Continue solumedrol 40mg q8h - Procal neg, RVP neg - Leukocytosis on presentation, b/l infiltrates on CTA chest, and infectious symptoms --> Continue ceftriaxone and azithromcyin for CAP coverage - Continue home regimen for anxiety --> could consider morphine if continued respiratory distress - F/u echo - Encourage IS and OOB 9. No contraindication to deep vein thrombosis (DVT) prophylaxis (Z78.9: Other specified health status) Heparin sq Subjective Pt is a 72y F with past medical history significant for severe COPD (last PFTs 09/28, FEV1 43%), chronic hypoxemic respiratory failure on 3L NC, former smoker (quit 2014), CVA, GERD, depression, and HLD who presented to the ED on 11/25 with complaints of worsening SOB and chest pain for the past 4 days. Pt states she uses 3L NC for most the day and all night at baseline. Over the last 4-5 days she has experienced worsening productive cough, chills, fatigue, and SOB. She reports that her sputum has been yellow-green and thick. She also reports some substernal chest pain that radiates to her Lt lateral ribs and her lower back. She denies any fevers, abdominal pain, nausea, vomiting, or diarrhea. In the ED, pt was found to be just below her baseline O2 requirement. She was placed on 4L NC and given a breathing treatment with improvement in her O2 sats. Laboratory workup significant for WBC 17.3, otherwise unremarkable. CXR in the ED did not reveal any acute infiltrates. CTA chest obtained which did not reveal any PE, but did reveal b/l infiltrates concerning for pneumonia. Pt was started on empiric abx, steroids, and admitted to the hospitalist service for further management. Pulmonary was consulted to assist in management of the pt's acute on chronic hypoxemic respiratory failure. 11/26: Pt appears anxious and tearful. She states that her SOB does not feel any better today. She is still having a productive cough. She has anxiety at baseline. She still complains of chest pain. Her troponins have been negative. I suspect her pain is related to costochondritis from coughing. Otherwise, she denies any new complaints. Pt is currently on 5L NC. 11/27: Pt is less anxious today but she does state that her chest pain is worse today. Her pain is in the same location but now she describes it as 8/10, pressure-like. EKG obtained which shows some T-wave inversion V1-V4. I am unable to pull up an old EKG to compare. Troponins obtained which continue to be negative. Echo pending. Pt's reports that the pt had a stress test within the last year at [facility] which he states didn't show anything. Will trial some toradol or morphine to see if this helps her pain. Respiratory mccauley, pt has been weaned to 4L NC. She reports that her cough has become less productive than yesterday. Objective Vitals & Measurements T: 36.4 ?C(Axillary) TMIN: 36.4 ?C(Axillary) TMAX: 36.7 ?C(Axillary) HR: 89(Monitored) RR: 20 BP: 102/66 SpO2: 90% WT: 81.2 kg Intake & Output This visit (24 hour periods starting at 07:00 EDT) 11/27/22 * 11/26/22 11/25/22 Total Summary Intake mL 4 3 9 Output mL -- 200 -- Fluid Balance 4 -197 9 Intake (5) dexamethasone mL -- -- 2 ketorolac mL 1 -- -- methylPREDNISolone mL 1 3 3 morphine mL -- -- 2 ondansetron mL 2 -- 2 Total 4 3 9 Output (1) Urine Voided mL -- 200 -- Total -- 200 -- Counts (0) * This column has not completed the indicated time period. Physical Exam General: Mild acute distress Skin: Warm, dry Neck: Trachea midline Eye: Sclera anicteric ENMT: Moist mucous membranes Cardiovascular: Regular rate and rhythm. No murmurs, rubs, or gallops. No BLE edema. Respiratory: Tachypneic. Scattered crackles b/l. No wheezing. No stridor. + accessory muscle use. Gastrointestinal: Soft, non-tender, non-distended Extremities: No deformity Neurological: Awake and alert. Following commands. No focal deficit appreciated. Lab Results Troponin: 9.2 pg/mL Low (11/27/22 12:58:00) Problem List/Past Medical History Ongoing Chronic GERD COPD (chronic obstructive pulmonary disease) CVA (cerebral vascular accident) Depression Depression with anxiety Former smoker History of CVA in adulthood Hyperlipidemia Hyperlipidemia Nocturia Obesity due to excess calories Other post-traumatic urethral stricture, female Stress incontinence Urge incontinence Urinary frequency Urinary urgency Historical GERD (gastroesophageal reflux disease) Smoker Medications Inpatient Abilify 5 mg Tab, 5 mg= 1 tab(s), Oral, Daily (more content not included)... Normal [facility] Comment on above: Result Comment: Elec tronically Signed By: Aniyah Whitt PA-C, Francisco Reese\.br\Date and Time Signed: 11/27/22 15:09 EDT Progress Note-Physician Subjective Patient having substernal chest pain this morning 8 out of 10 with no radiation. She says the pain is worse when she takes a deep breath or cough. She is short of breath as well due to the pain. She has received Xanax and Zofran per nursing and we got a twelve-lead ECG which shows nonspecific T wave flattening but no acute ST-T wave changes. Review of Systems Constitutional: no fever, no chills, no sweats, no weakness Skin: no Jaundice, no rash, no lesions, nopetechiae ENMT: no ear pain, no sore throat, no congestion, no hoarseness Respiratory: no shortness of breath, moderate cough, no orthopnea, no wheezing Cardiovascular: moderate chest pain, no palpitations, no edema Gastrointestinal: no nausea, no vomiting, no diarrhea, no GI bleeding Genitourinary: no dysuria, no hematuria, no discharge, no pain Musculoskeletal: no back pain, no trauma Neurologic: no headache, no dizziness, no numbness, no weakness Psychiatric: no sleeping problems, no irritability, no mood swings/depression. Heme/Lymph: no bleeding tendency, no bruising tendency, no petechiae, no swollen nodes Allergy/Immunologic: no seasonal allergies, no food allergies, no recurrent infections, no impaired immunity Additional ROS info: Except as noted in the above Review of Systems and in the History of Present Illness all other systems have been reviewed and are negative or noncontributory. Objective Vitals & Measurements T: 36.4 ?C(Axillary) TMIN: 36.3 ?C(Axillary) TMAX: 36.7 ?C(Axillary) HR: 88(Monitored) RR: 20 BP: 126/75 SpO2: 91% WT: 81.2 kg Intake & Output This visit (24 hour periods starting at 07:00 EDT) 11/27/22 * 11/26/22 11/25/22 Total Summary Intake mL 3 3 9 Output mL -- 200 -- Fluid Balance 3 -197 9 Intake (4) dexamethasone mL -- -- 2 methylPREDNISolone mL 1 3 3 morphine mL -- -- 2 ondansetron mL 2 -- 2 Total 3 3 9 Output (1) Urine Voided mL -- 200 -- Total -- 200 -- Counts (0) * This column has not completed the indicated time period. Physical Exam Constitutional: Awake and alert; oriented x3, appears in distress with mild respiratory distress as well Head/neck: Neck supple with no palpable lymphadenopathy, bruits or masses; trachea midline Chest/lungs: Diminished but clear with no wheezes or rhonchi; mild respiratory distress with tachypnea; no point tenderness noted Cardiovascular: Regular rate and rhythm; normal S1-S2 with no murmur; no pitting edema 2+ pulses bilaterally Gastrointestinal: Soft, nontender, nondistended, positive bowel sounds Neurological: Nonfocal; cranial nerves II through XII appear intact Psychological: Pleasant affect Lab Results Adenovirus: Not Detected (11/26/22 10:19:00) B. holmesii: Not Detected (11/26/22 10:19:00) B. parapertussis/bronchisept ica: Not Detected (11/26/22 10:19:00) B. pertussis: Not Detected (11/26/22 10:19:00) Human Metapneumovirus: Not Detected (11/26/22 10:19:00) Influenza A: Not Detected (11/26/22 10:19:00) Influenza A (subtype H1): Not Detected (11/26/22 10:19:00) Influenza A (subtype H3): Not Detected (11/26/22 10:19:00) Influenza B: Not Detected (11/26/22 10:19:00) Parainfluenza 1: Not Detected (11/26/22 10:19:00) Parainfluenza 2: Not Detected (11/26/22 10:19:00) Parainfluenza 3: Not Detected (11/26/22 10:19:00) Parainfluenza 4: Not Detected (11/26/22 10:19:00) Rhinovirus: Not Detected (11/26/22 10:19:00) RSV A: Not Detected (11/26/22 10:19:00) RSV B: Not Detected (11/26/22 10:19:00) Assessment/Plan 72-year-old female admitted for acute on chronic respiratory failure with hypoxia in the setting of COPD exacerbation. She is currently having chest pain which sounds pleuritic versus costochondritis. COVID's include COPD, history of CVA in the past, depression with anxiety/panic, hyperlipidemia, acid reflux and previous smoker. 1. Acute on chronic respiratory failure with hypoxia (J96.21: Acute and chronic respiratory failure with hypoxia) Secondary to COPD exacerbation versus community-acquired pneumonia We will continue IV ceftriaxone day 3 and oral azithromycin day 3 Currently on 5 L of nasal cannula and again at home she uses anywhere from 3 to 4 L DuoNebs 4 times daily and with albuterol every 2 hours as needed IV methylprednisolone 40 mg every 8 hours Ordered: Home Health Orders [facility] Care/Day Moderate 35 Minutes 99778 2. Acute exacerbation of chronic obstructive pulmonary disease (COPD) (J44.1: Chronic obstructive pulmonary disease with (acute) exacerbation) See above Ordered: Home Health Orders [facility] Care/Day Moderate 35 Minutes 28903 3. Other chest pain (R07.89: Other chest pain) Pain is worse with breathing and coughing so it sounds more pleuritic in nature or costochondritis We will give a one-time dose of Toradol 15 mg IV push Stat troponin Twelve-lead ECG shows sinus rhythm with nonspecific T wave flattening b (more content not included)... Normal [facility] Comment on above: Result Comment: Elec tronically Signed By: Kodi Hong DO\Date and Time Signed: 11/27/22 09:33 EDT Troponin 0 Hr.on 11-27-2022 Troponin I.cardiac [Mass/Vol] 7.30 pg/mL Low 10.10-27.1 0 [facility] Comment on above: Result Comment: The 95% CI (Confidence Interval) PPV (Positive Predictive Value) for myocardial infarction in females is 38 pg/mL, in males 51 pg/mL. The results should be used in conjunction with clinical conditions of myocardial infarction. (Access High Sensitivity Troponin I Instructions For Use, [employer], November 2017) Performed By: #### 1 [id number] ####[facility] [address] [place] [address] Troponin 3 Hr.on 11-27-2022 Troponin I.cardiac [Mass/Vol] 9.20 pg/mL Low 10.10-27.1 0 [facility] Comment on above: Result Comment: The 95% CI (Confidence Interval) PPV (Positive Predictive Value) for myocardial infarction in females is 38 pg/mL, in males 51 pg/mL. The results should be used in conjunction with clinical conditions of myocardial infarction. (Access High Sensitivity Troponin I Instructions For Use, [employer], November 2017) Performed By: #### 2 [id number], [id number], 43855154, 4076015, 6182299, [id number] #### [facility] [address] [place] [address] Troponin 6 Hr.on 11-27-2022 Troponin I.cardiac [Mass/Vol] 8.70 pg/mL Low 10.10-27.1 0 [facility] Comment on above: Result Comment: The 95% CI (Confidence Interval) PPV (Positive Predictive Value) for myocardial infarction in females is 38 pg/mL, in males 51 pg/mL. The results should be used in conjunction with clinical conditions of myocardial infarction. (Access High Sensitivity Troponin I Instructions For Use, [employer], November 2017) Performed By: #### 2 538777, [id number], 56076821, 5032934, 1569378, [id number] #### [facility] [address] [place] [address] Troponin 9 Hr.on 11-27-2022 Troponin I.cardiac [Mass/Vol] 5.80 pg/mL Low 10.10-27.1 0 [facility] Comment on above: Order Comment: spoke with DONNA Elizondo 6&9 hr trop were only scheduled 1 hr apart. Draw 9hr @1900 not 1700 since 6hr was scheduled @1600. [email or web address] 11/27/2022 17:13:58 EDT Result Comment: The 95% CI (Confidence Interval) PPV (Positive Predictive Value) for myocardial infarction in females is 38 pg/mL, in males 51 pg/mL. The results should be used in conjunction with clinical conditions of myocardial infarction. (Access High Sensitivity Troponin I Instructions For Use, [employer], November 2017) Performed By: #### 1 [id number] #### [facility] [address] [place] [address] .Manual Abson 11-26-2022 Basophils/Leukocytes Manual cnt (Bld) [Pure # fraction] 0.0 E9/L Normal 0.0-0.2 [facility] Comment on above: Performed By: #### 2 100072, 41543820, 47836149, 6226124, 4317148, 57167624 #### [facility] [address] [place] [address] Eosinophils/Leukocytes Manual cnt (Bld) [Pure # fraction] 0.0 E9/L Normal 0.0-0.5 [facility] Comment on above: Performed By: #### 2 554536, 31211199, 13740336, 2862009, 1485437, 69543570 #### [facility] [address] [place] [address] Lymphocytes/Leukocytes Manual cnt (Bld) [Pure # fraction] 1.2 E9/L Normal 1.0-4.0 [facility] Comment on above: Performed By: #### 2 821301, 10304739, 48969384, 6657728, 2561610, 68382596 #### [facility] [address] [place] [address] Monocytes/Leukocytes Manual cnt (Bld) [Pure # fraction] 0.0 E9/L Low 0.2-1.0 [facility] Comment on above: Performed By: #### 2 582633, 63052441, 52865837, 8108097, 8124876, 08351596 #### [facility] [address] [place] [address] Neutrophils/Leukocytes Auto (Bld) [Pure # fraction] 12.3 E9/L High 2.0-7.5 [facility] Comment on above: Performed By: #### 2 503271, 60153035, 23181105, 6121647, 0268102, 30975253 #### [facility] [address] [place] [address] BMPon 11-26-2022 Anion gap [Moles/Vol] 10 mmol/L Normal 6-16 [facility] Comment on above: Performed By: #### 2 347787, 27241363, 67648644, 3090213, 3067033, 35286373 #### [facility] [address] [place] [address] Calcium [Mass/Vol] 9.3 mg/dL Normal 8.9-11.1 [facility] Comment on above: Performed By: #### 2 591386, 01006963, 55689471, 0600921, 6219833, 99964100 #### [facility] [address] [place] [address] Chloride [Moles/Vol] 101 mmol/L Normal 101-111 [facility] Comment on above: Performed By: #### 2 617813, 50225585, 66983388, 2288161, 6655657, 42614550 #### [facility] [address] [place] [address] CO2 [Moles/Vol] 29 mmol/L Normal 21-31 [facility] Comment on above: Performed By: #### 2 872325, 85870633, 42260520, 2933144, 4490127, 44573857 #### [facility] [address] [place] [address] Creatinine [Mass/Vol] 0.7 mg/dL Normal 0.5-1.3 [facility] Comment on above: Performed By: #### 2 753625, 30656752, 64202638, 8228284, 6667652, 83656361 #### [facility] [address] [place] [address] Glucose [Mass/Vol] 147 mg/dL Normal 55-199 [facility] Comment on above: Result Comment: If t his glucose result represents a fasting glucose, interpretation should refer to the following reference range: 55-99 mg/dL Performed By: #### 2 338786, 61460683, 69917461, 2821433, 6331474, 34029674 #### [facility] [address] [place] [address] Potassium [Moles/Vol] 4.0 mmol/L Normal 3.5-5.3 [facility] Comment on above: Performed By: #### 2 206214, 02647812, 17277897, 7293255, 4711475, 66758945 #### [facility] [address] [place] [address] Sodium [Moles/Vol] 136 mmol/L Normal 135-145 [facility] Comment on above: Performed By: #### 2 277649, 69499941, 51474528, 5268801, 4155082, 24905263 #### [facility] [address] [place] [address] Urea nitrogen [Mass/Vol] 15 mg/dL Normal 5-21 [facility] Comment on above: Performed By: #### 2 366585, 77717542, 93074913, 2472015, 8898310, 48242870 #### [facility] [address] [place] [address] Urea nitrogen/Creatinine [Mass ratio] 21 No Units High 10-20 [facility] Comment on above: Performed By: #### 2 607012, 65948643, 53867164, 0514044, 2520601, 55252812 #### [facility] [address] [place] [address] CBC w/ Auto Diffon 3 Erythrocyte distribution width (RBC) [Ratio] 13.5 % Normal 10.9-14.2 [facility] Comment on above: Performed By: #### 2 939221, 67193094, 62953370, 5635307, 0172256, 78243037 #### [facility] [address] [place] [address] Hematocrit (Bld) [Volume fraction] 32.5 % Low 34.0-46.0 [facility] Comment on above: Performed By: #### 2 757693, 18859612, 26304965, 5623060, 2515871, 86805916 #### [facility] [address] [place] [address] Hemoglobin (Bld) [Mass/Vol] 11.2 g/dL Low 12.0-16.0 [facility] Comment on above: Performed By: #### 2 819932, 74577462, 73760661, 2918336, 2648171, 37763058 #### [facility] [address] [place] [address] MCH (RBC) [Entitic mass] 32.9 pg Normal 27.0-34.0 [facility] Comment on above: Performed By: #### 2 143945, 38822418, 17727293, 7274423, 4402980, 85901074 #### [facility] [address] [place] [address] MCHC (RBC) [Mass/Vol] 34.5 g/dL Normal 31.4-36.0 [facility] Comment on above: Performed By: #### 2 775753, 01346019, 63506507, 2178194, 3490534, 82774073 #### [facility] [address] [place] [address] MCV (RBC) [Entitic vol] 95.6 fL Normal 80.0-100.0 [facility] Comment on above: Performed By: #### 2 585717, 82987428, 25722633, 6744440, 1511956, 72374219 #### [facility] [address] [place] [address] Platelet mean volume (Bld) [Entitic vol] 8.4 fL Normal 6.4-10.8 [facility] Comment on above: Performed By: #### 2 613296, 27529321, 00708470, 7253136, 1964250, 40969223 #### [facility] [address] [place] [address] Platelets (Bld) [#/Vol] 252.0 E9/L Normal 150.0-500. 0 [facility] Comment on above: Performed By: #### 2 404923, 66175078, 45167929, 8462187, 0942938, 56726843 #### [facility] [address] [place] [address] RBC (Bld) [#/Vol] 3.4 E12/L Low 4.3-5.9 [facility] Comment on above: Performed By: #### 2 585823, 00036223, 27080833, 8840658, 1084374, 84782887 #### [facility] [address] [place] [address] WBC corrected for nucl RBC Auto (Bld) [#/Vol] 13.5 E9/L High 4.0-11.0 [facility] Comment on above: Performed By: #### 2 028117, 94029382, 79651680, 0759874, 0887214, 36657468 #### [facility] [address] [place] [address] CHEMISTRYOrdered By: SYSTEM SYSTEM on 11-26-2022 Anion gap [Moles/Vol] 10 mmol/L Normal 6 - 16 mEq/L [facility] Calcium [Mass/Vol] 9.3 mg/dL Normal 8.9 - 11. 1 mg/dL [facility] Chloride [Moles/Vol] 101 mmol/L Normal 101 - 1 11 mmol/L [facility] CO2 [Moles/Vol] 29 mmol/L Normal 21 - 31 mmol/L [facility] Creatinine [Mass/Vol] 0.7 mg/dL Normal 0.5 - 1.3 mg/dL [facility] GFR/1.73 sq M.predicted among non-blacks MDRD (S/P/Bld) [Vol rate/Area] 91 mL/min/1.73 m2 Normal >=59mL/min /1.73 m2 [facility] Chem S Glucose [Mass/Vol] 147 mg/dL Normal 55 - 199 mg/dL [facility] Potassium [Moles/Vol] 4.0 mmol/L Normal 3.5 - 5.3 mmol/L [facility] Sodium [Moles/Vol] 136 mmol/L Normal 135 - 145 mmol/L [facility] Urea nitrogen [Mass/Vol] 15 mg/dL Normal 5 - 21 mg/dL [facility] Urea nitrogen/Creatinine [Mass ratio] 21 mg/mg High 10 - 20 [facility]isol COAGULATIONOrdered By: Mandie Hand on 11-26-2022 aPTT Coag (PPP) [Time] 30.2 s Normal 25.1 - 36.5 second(s) [facility] Auto Coag INR Coag (PPP) [Relative time] 1.2 {INR} Invalid Interpretation Code [facility] Auto Coag PT Coag (PPP) [Time] 14.0 s High 9.4 - 1 2.5 second(s) [facility] Auto Coag CTA Cheston 11-26-2022 CTA Chest Exam Date/Time: 11/25/2022 19:18 EDT Reason for Exam: Shortness of breath (SOB) Report IMPRESSION: NO EVIDENCE OF PULMONARY EMBOLI. FINDINGS MOST CONSISTENT WITH BRONCHITIS/BRONCHOPNEUMON IA. MILD PROBABLY REACTIVE HILAR LYMPHADENOPATHY. FOLLOW-UP IMAGING IN 3-6 MONTHS IS SUGGESTED. EXAM: CTA Chest DATE: 11/25/2022 CLINICAL HISTORY: Shortness of breath (SOB). COMPARISON: Portable chest from earlier 11/25/2022 and chest CTA 08/15/2022. TECHNIQUE: Spiral enhanced images were obtained of the chest after the infusion of approximately 68 mL of Isovue 370 contrast with pulmonary artery CTA protocol. Routine and volume rendered images were performed on a three-dimensional workstation. All CT scans at this facility use dose modulation, iterative reconstruction, and/or weight based dosing when appropriate to reduce radiation dose to as low as reasonably achievable. FINDINGS: No filling defects are identified within the pulmonary arterial vasculature to suggest pulmonary emboli. The thoracic aorta is normal in caliber with minimal atherosclerotic plaquing. There is no dissection. The heart is not enlarged. No significant coronary artery calcifications, within the limits of the cardiac motion artifact. Mild central bronchial wall thickening, with mild patchy airspace reticulonodular opacities are most consistent with bronchitis/bronchopneumon ia. Mild bilateral hilar lymphadenopathy is probably reactive. There are no significant pleural or pericardial effusions. Mild degenerative changes of the thoracic spine are again noted. There are no fractures identified. The limited imaging of the included upper abdomen is noncontributory. Report Ordering Provider: Tariq ALCALA FINAL REPORT Dictated: 11/26/2022 12:18 pm Duke Castellon MD Signed (Electronic Signature): 11/26/2022 12:18 pm Signed by: Duke Castellon MD Transcribed by: BEATRICE Technologist: RONA Technical Comments GFR (mL/min/1/73m2) 91 Contrast: Isovue 370 Contrast amount in ml's: 68 Normal [facility] ED Clinical Summaryon 2022 ED Clinical Summary (Inserted Image. Lynda ble to display) [address] [address] ED Clinical Summary Person Information Name: NICOLE LOMELI [place] Age: 72 Years : 1950 Sex: Female Language: Kyrgyz PCP: PARRIS GUZMAN DO Marital Status: Phone: [phone] Visit Id: Visit Reason: Cough; Decreased oxygen level; Chest pain; Shortness of breath; CHEST PAIN, SOB Speciality: Acuity: 1 Enc Type: Observation Med Service: Medical Arrival: 11/25/2022 14:51:48 Discharge: LOS: 000 10:17 Checkin: 11/25/2022 14:51:48 Checkout: 11/26/2022 01:08:08 Dispo Type: Admitted as IP to this [facility] EVENTS: Event Name Event Status Request Date/Time Start Date/Time Complete Date/Time Arrive Complete 11/25/2022 14:51:48 11/25/2022 14:51:48 11/25/2022 14:51:48 Document Home Meds Request 11/25/2022 14:51:48 Triage Complete 11/25/2022 14:51:48 11/25/2022 14:58:40 11/25/2022 14:58:40 EKG Complete 11/25/2022 14:53:01 11/25/2022 14:58:00 Pending Labs Inlab 11/25/2022 14:53:01 Lab Complete 11/25/2022 14:53:01 11/25/2022 17:37:03 Patient Care Request 11/25/2022 14:53:01 RT Request 11/25/2022 14:53:01 X-Ray Complete 11/25/2022 14:53:01 11/25/2022 15:33:18 11/25/2022 15:47:11 Bed Assign Complete 11/25/2022 14:53:16 11/25/2022 14:53:16 11/25/2022 14:53:16 Dr Exam Complete 11/25/2022 14:53:16 11/25/2022 15:13:55 11/25/2022 15:13:55 RN Exam Complete 11/25/2022 14:53:16 11/25/2022 15:14:22 11/25/2022 15:14:22 Registration Complete 11/25/2022 14:57:18 11/25/2022 14:57:18 11/25/2022 14:57:18 Reg Complete Request 11/25/2022 14:57:18 Reg Bed Request Complete 11/25/2022 14:57:18 11/25/2022 14:57:18 11/25/2022 14:57:18 Registration Complete 11/25/2022 15:13:55 11/25/2022 15:39:15 11/25/2022 15:39:15 Dr Exam Complete 11/25/2022 15:14:27 11/25/2022 15:14:27 11/25/2022 15:14:27 Meds Admin Complete 11/25/2022 15:31:29 11/25/2022 16:28:58 RT Tx/ABG Complete 11/25/2022 15:31:30 11/25/2022 16:09:23 11/25/2022 16:09:23 RT Tx/ABG Complete 11/25/2022 15:31:30 11/25/2022 16:09:36 11/25/2022 16:09:36 Pending Labs Complete 11/25/2022 15:33:46 11/25/2022 16:36:07 RT Tx/ABG Complete 11/25/2022 15:33:46 11/25/2022 16:09:29 11/25/2022 16:09:29 Wet Read Request 11/25/2022 15:47:11 Pending Labs Complete 11/25/2022 15:48:52 11/25/2022 15:48:52 11/25/2022 17:37:03 Lab Complete 11/25/2022 15:48:52 11/25/2022 15:48:52 11/25/2022 17:37:03 Pending Labs Complete 11/25/2022 15:56:36 11/25/2022 15:56:36 11/25/2022 15:56:43 Lab Complete 11/25/2022 15:56:36 11/25/2022 15:56:36 11/25/2022 15:56:43 Possible SIRS Request 11/25/2022 16:01:09 Pending Labs Complete 11/25/2022 16:36:52 11/25/2022 16:36:52 11/25/2022 17:05:03 Consult Request 11/25/2022 16:45:44 Hospitalist Consult Request 11/25/2022 16:45:44 Patient Care Request 11/25/2022 16:49:02 Patient Care Request 11/25/2022 16:49:02 Patient Care Request 11/25/2022 16:49:02 Patient Care Request 11/25/2022 16:49:03 Meds Admin Complete 11/25/2022 16:50:15 11/25/2022 17:39:38 Bed Request Request 11/25/2022 16:51:43 Reg Bed Request Request 11/25/2022 16:51:43 Admit Request 11/25/2022 16:51:43 CT Complete 11/25/2022 16:52:04 11/25/2022 17:48:01 11/25/2022 19:18:16 Pending Labs Request 11/25/2022 16:52:25 Pending Labs Complete 11/25/2022 17:04:54 11/25/2022 17:04:54 11/25/2022 17:43:34 Patient Care Request 11/25/2022 17:25:40 Consult Request 11/25/2022 17:25:40 Pending Labs Request 11/25/2022 17:25:40 Lab Request 11/25/2022 17:25:40 Meds Admin Request 11/25/2022 17:25:40 RT Request 11/25/2022 17:25:40 RT Tx/ABG Request 11/25/2022 17:25:41 RT Tx/ABG Request 11/25/2022 17:25:41 RT Tx/ABG Complete 11/25/2022 17:25:41 11/25/2022 17:39:23 11/25/2022 17:39:23 RT Tx/ABG Request 11/25/2022 17:25:41 Meds Admin Request 11/25/2022 17:26:34 Pending Labs Complete 11/25/2022 18:51:23 11/25/2022 18:51:23 11/25/2022 18:51:24 RT Complete 11/25/2022 20:23:05 11/25/2022 20:23:28 ADDRESS: [address] [place] [phone] [facility] DOC NOTES: MEDICAL INFORMATION: Prescriptions Given: Medications to Continue with No Changes Other Medications acetaminophen-oxycodone (Percocet 5 mg-325 mg oral tablet) 1 Tablets By Mouth every 6 hours as needed as needed for pain. albuterol (albuterol 0.083% Inh Kaylee 3 mL) 0.083% - 3mL dosing units Inhalation every 4 hours as needed. albuterol-ipratropium (Combivent Respimat) 1 Puffs Inhalation. alprazolam (Xanax 0.25 mg Tab) 1 Tablets By Mouth 2 times a day as needed as needed for anxiety. aripiprazole (Abilify 5 mg Tab) 1 Tablets By Mouth every day. clopidogrel (Plavix 75 mg Tab) 1 Tablets By Mouth. ergocalciferol (Vitamin D 50,000 intl units (1.25 mg) oral capsule) 1 Capsules By Mouth every week. fenofibrate (TriCor 145 mg oral tablet) 1 Tablets By Mouth every day. fluoxetine (Prozac 40 mg Cap) 1 Capsules By Mouth every day. fluticasone-vilanterol (Breo Ellipta 100 mcg-25 mcg inhalation powder) 1 Puffs Inhalation every day. 30 dose unit. Refills: 2. omeprazole (omeprazole 20 m (more content not included)... Normal [facility] ED Patient Education Noteon 11-26-2022 ED Patient Education Note Normal [facility] ED Patient Summaryon 023 ED Patient Summary (Inserted Image. Lynda ble to display) [place] [id number] Patient Discharge Instructions Person Information Name: NICOLE LOMELI Age: 72 Years Arrival Date: 11/25/2022 14:51:48 Discharge Diagnosis: 1:Acute on chronic respiratory failure with hypoxia; 2:Acute exacerbation of chronic obstructive pulmonary disease (COPD); 3:Other chest pain; 4:Hyperlipidemia; 5:History of CVA in adulthood; 6:Depression with anxiety; 7:Chronic GERD; 8:Obesity due to excess calories; 9:No contraindication to deep vein thrombosis (DVT) prophylaxis Primary Care Physician: PARRIS GUZMAN DO Provider Information Primary Provider: Nelson Casillas DO Advanced Physical Anthropologist:Td Wang PA-C The exam and treatment you received in the Emergency Department were for an urgent problem and are not intended as complete care. It is important that you follow up with a doctor, nurse practitioner, or physician?s employee relations assistant for ongoing care. If your symptoms become worse or you do not improve as expected and you are unable to reach your usual health care provider, you should return to the Emergency Department. We are available 24 hours a day. NICOLE LOMELI has been given the following list of patient education materials, prescriptions and follow-up instructions: Follow-up Instructions: In the event that this physician does not participate in your insurance network, please consult with your insurance company to find a nearby participating provider. Patient Education Materials: A MESSAGE TO ALL PATIENTS REGARDING OPIOIDS PRESCRIPTION OPIOIDS: WHAT YOU NEED TO KNOW Prescription opioids can be used to help relieve rjlemvmo-gb-kcnjxu pain and are often prescribed following a surgery or injury, or for certain health conditions. These medications can be an important part of the treatment but also come with serious risks. It is important to work with your healthcare provider to make sure you are getting the safest, most effective care. WHAT ARE THE RISKS AND SIDE EFFECTS OF OPIOID USE? Prescription opioids carry serious risks of addiction and overdose, especially with prolonged use. An opioid overdose, often marked by slowed breathing, can cause sudden . The use of prescription opioids can have a number of side effects as well, even when taken as directed: ? Tolerance?meaning you might need to take more of the medication for the same pain relief ? Physical dependence?meaning you have symptoms of withdrawal when a medication is stopped ? Increased sensitivity to pain ? Constipation ? Nausea, vomiting, and dry mouth ? Sleepiness and dizziness ? Confusion ? Depression ? Low levels of testosterone that can result in lower sex drive, energy, and strength ? Itching and sweating RISKS ARE GREATER WITH: ? History of drug misuse, substance use disorder, or overdose ? Mental health conditions (such as depression or anxiety) ? Sleep apnea ? Older age (65 years and older) ? Avoid alcohol while taking prescription opioids. Also, unless specifically advised by your health care provider, medications to avoid include: ? Benzodiazepines (such as Xanax or Valium) ? Muscle relaxants (such as Soma or Flexeril) ? Hypnotics (such as Ambien or Lunesta) ? Other prescription opioids KNOW YOUR OPTIONS Talk to your health care provider about ways to manage your pain that don?t involve prescription opioids. Some of these options may actually work better and have fewer risks and side effects. Options may include: ? Pain relievers such as acetaminophen, ibuprofen, and naproxen ? Some medication that are also used for depression or seizures ? Physical therapy and exercise ? Cognitive behavioral therapy, a psychological, goal-directed approach, in which patients learn how to modify physical, behavioral, and emotional triggers of pain and stress. IF YOU ARE PRESCRIBED OPIOIDS FOR PAIN: ? Never take opioids in greater amounts or more often than prescribed. ? Follow up with your primary health care provider. o Work together to create a plan on how to manage your pain. o Talk about ways to help manage your pain that don?t involve prescription opioids. o Talk about any and all concerns and side effects. ? Help prevent misuse and abuse o Never sell or share prescription opioids. o Never use another person?s prescription opioids. ? Store prescription opioids in a secure place and out of reach of others (this may include visitors, children, friends, and family). ? Safely dispose of unused prescription opioids: Find your community drug take-back program or your pharmacy mail-back program, or flush them down the toilet, following guidance from the Food and Drug Administration (www.fda.gov/Drugs/Resour cesForYou). ? Visit www.cdc.gov/drugoverdose to learn about the risks of opioids abuse and overdose. ? If you believe you (more content not included)... [facility] [employer] Education Videoon [employer] Education Video Yes Patient Avoiding Infections in the Hospital [facility] HEMATOLOGYOrdered By: Deon Trent on 11-26-2022 Band form neutrophils/100 WBC (Bld) 8 % Normal 0 - 10 % [facility] Basophils/100 WBC (Bld) 0 % Normal 0 - 2 % [facility] Basophils/Leukocytes Manual cnt (Bld) [Pure # fraction] 0.0 E9/L Normal 0.0 - 0.2 E9/L [facility] Eosinophils/100 WBC (Bld) 0 % Normal 0 - 8 % [facility] Eosinophils/Leukocytes Manual cnt (Bld) [Pure # fraction] 0.0 E9/L Normal 0.0 - 0.5 E9/L [facility] Erythrocyte distribution width (RBC) [Ratio] 13.5 % Normal 10.9 - 14.2 % [facility] Hematocrit (Bld) [Volume fraction] 32.5 % Low 34.0 - 46.0 % [facility] Hemoglobin (Bld) [Mass/Vol] 11.2 g/dL Low 12.0 - 16.0 gm/dL [facility] Lymphocytes/100 WBC (Bld) 9 % Low 14 - 50 % [facility] Lymphocytes/Leukocytes Manual cnt (Bld) [Pure # fraction] 1.2 E9/L Normal 1.0 - 4.0 E9/L [facility] MCH (RBC) [Entitic mass] 32.9 pg Normal 27.0 - 34.0 pg [facility] MCHC (RBC) [Mass/Vol] 34.5 g/dL Normal 31.4 - 36.0 gm/dL [facility] MCV (RBC) [Entitic vol] 95.6 fL Normal 80.0 - 100.0 fL [facility] Monocytes/100 WBC (Bld) 0 % Low 4 - 14 % [facility] Monocytes/Leukocytes Manual cnt (Bld) [Pure # fraction] 0.0 E9/L Low 0.2 - 1.0 E9/L [facility] Morphology Kevin (Bld) [Interp] Normal (11/26/22 5:56 AM) Normal [facility] Neutrophils/Leukocytes Auto (Bld) [Pure # fraction] 12.3 E9/L High 2.0 - 7.5 E9/L [facility] Platelet mean volume (Bld) [Entitic vol] 8.4 fL Normal 6.4 - 10.8 fL [facility] Platelets (Bld) [#/Vol] 252.0 E9/L Normal 150.0 - 500.0 E9/L [facility] RBC (Bld) [#/Vol] 3.4 E12/L Low 4.3 - 5.9 E12/L [facility] Segmented neutrophils/100 WBC (Bld) 83 % High 36 - 75 % [facility] Variant lymphocytes LM Ql (Bld) 0 % Normal <=0% [facility] WBC corrected for nucl RBC Auto (Bld) [#/Vol] 13.5 E9/L High 4.0 - 11.0 E9/L [facility] Interdisciplinary Note - Shlomo e Manageron 11-26-2022 Interdisciplinary Note - Analog Design Engineer CRM spoke with patient and spouse in room. Patient is alert and oriented but anxious and participates in discharge planning. Patient white board updated, and CRM contact information provided. Discussed Dr Hong saw patient earlier today and not ready for discharge yet today, Pulmonology to see today as well. Patient verified PCP, insurance and DME. Patient is from home with her spouse and denies any current H/h services. Pt does recommend H/H and she is agreeable and wants to use [facility] H/H as have used in the past. Will make referral. OBS admit Reviewed JENNINGS form, she denies any questions. Has spouse sign form for her. gave them a copy. Patient does use oxygen at home 3L from [employer] and is on 5L at this time. Patient was made INPT today, reviewed Medicare rights, they deny any questions and sign form. Gave them copy. Normal [facility] Comment on above: Result Comment: Elec tronically Signed By: Mikey THOMPSON, Amelia\.br\Date and Time Signed: 11/26/22 12:36 EDT Interdisciplinary Note - John n 11-26-2022 Interdisciplinary Note - OT OT AM-PAC score = 20/24 HH services vs. home independently based on medical status at d/c. Pt demos mod SOB OE during functional OOB activities requiring daily inpatient skilled OT services at this time to increase activity tolerance. Normal [facility] Manual Diffon 11-26-2022 Band form neutrophils/100 WBC (Bld) 8 % Normal 0-10 [facility] Comment on above: Order Comment: Order Added by Discern Expert. Performed By: #### 2 [id number], 34551109, 02645714, 5877818, 5107706, 72629718 #### [facility] [address] [place] [address] Basophils/100 WBC (Bld) 0 % Normal 0-2 [facility] Comment on above: Order Comment: Order Added by Discern Expert. Performed By: #### 2 328925, 50689346, 42064289, 5362799, 7624113, 88449599 #### [facility] [address] [place] [address] Eosinophils/100 WBC (Bld) 0 % Normal 0-8 [facility] Comment on above: Order Comment: Order Added by Discern Expert. Performed By: #### 2 481093, 50206686, 47114318, 4501946, 9638989, 84097022 #### [facility] [address] [place] [address] Lymphocytes/100 WBC (Bld) 9 % Low 14-50 [facility] Comment on above: Order Comment: Order Added by Discern Expert. Performed By: #### 2 630549, 66248271, 10324591, 8846784, 6116589, 61577014 #### [facility] [address] [place] [address] Monocytes/100 WBC (Bld) 0 % Low 4-14 [facility] Comment on above: Order Comment: Order Added by Discern Expert. Performed By: #### 2 352693, 30488556, 82145963, 1774416, 8329041, 33620340 #### [facility] [address] [place] [address] Morphology Kevin (Bld) [Interp] Normal Normal [facility] Comment on above: Order Comment: Order Added by Discern Expert. Performed By: #### 2 276583, 87007855, 01544007, 1040855, 7896123, 67481729 #### [facility] [address] [place] [address] Segmented neutrophils/100 WBC (Bld) 83 % High 36-75 [facility] Comment on above: Order Comment: Order Added by Discern Expert. Performed By: #### 2 387615, 26017504, 14660116, 4998246, 1992223, 60881286 #### [facility] [address] [place] [address] Variant lymphocytes LM Ql (Bld) 0 % Normal <=0 [facility] Comment on above: Order Comment: Order Added by Discern Expert. Performed By: #### 2 582657, 45446191, 35041030, 5612227, 8000109, 10894429 #### [facility] [address] [place] [address] Message from Medicareon 11-07 Message from Medicare [id number]#1.00CD:1 Normal [facility] Message from Medicare [id number]#1.00CD:1 Normal [facility] Monitor Recordon 11-26-2022 Monitor Record [id number]#1.00CD:1 Normal [facility] Monitor Record [id number]#1.00CD:1 Normal [facility] Monitor Record [id number]#1.00CD:1 27 Normal [facility] Monitor Record [id number]#1.00CD:1 27 Normal [facility] Monitor Record [id number]#1.00CD:1 27 Normal [facility] Monitor Record [id number]#1.00CD:1 27 Normal [facility] PT & PTTon 11-26-2022 aPTT Coag (PPP) [Time] 30.2 second(s) Normal 25.1-36.5 [facility] Comment on above: Result Comment: Para meter 15 days - 4 weeks 1 - 5 months 6 - 11 months 1 - 5 years 6 - 10 years 11 - 17 years PTT Mean: 35.4 (27.6-45.6) Mean: 33.5 (24.8-40.7) Mean: 32.4 (25.1-40.7) Mean: 31.6 (24.0-39.2) Mean: 31.6 (26.9-38.7) Mean: 31.0 (24.6-38.4) Pediatric Reference ranges were obtained from a study by max Sinha prepared from 1437 samples obtained at 7 different centers using the same coagulation reagent and instrumentation as [facility]. Currently there are no coagulation studies available worldwide for children to 14 days, and no normal ranges. Heparin therapeutic range (represented by Anti-Factor Xa activity of 0.2 - 0.4 U/mL) corresponds to PTT of 56.6 - 109.0 sec. Performed By: #### 2 637809, 54270267, 01360353, 3904600, 4081838, 04211464 #### [facility] [address] [place] [address] INR Coag (PPP) [Relative time] 1.2 {INR} Invalid Interpretation Code [facility] Comment on above: Result Comment: INR results are specifically intended to assess patients stabilized on long-term Anticoagulation therapy suggested INR?s ?Less Intensive Anticoagulation? 2.0 ? 3.0 Conventional Range 3.0 ? 4.5 Performed By: #### 2 796813, 61287203, 74509938, 3805036, 4292721, 80329236 #### [facility] [address] [place] [address] PT Coag (PPP) [Time] 14.0 second(s) High 9.4-12.5 [facility] Comment on above: Result Comment: 15 d ays - 4 weeks 1 - 5 months 6 -11 months 1- 5 years 6-10 years 11 -17 years Mean: 11.2 (9.5-12.6) Mean: 11.0 (9.7-12.8) Mean: 11.0 (9.8-13.0) Mean: 11.3 (9.9-13.4) Mean: 11.7 (10.0-14.6) Mean: 11.8 (10.0 - 14.1) Pediatric Reference ranges were obtained from a study by max Sinha prepared from 1437 samples obtained at 7 different centers using the same coagulation reagent and instrumentation as [facility]. Currently there are no coagulation studies available worldwide for children to 14 days, and no normal ranges. Performed By: #### 2 524657, 78217515, 19848471, 3107923, 7956203, 79058375 #### [facility] [address] [place] [address] Progress Note-Physicianon Progress Note-Physician Subjective Still short of breath and still with chest congestion; she has a cough active of greenish phlegm She did have an episode of chest pain earlier and ECG performed and it was unremarkable; most likely a panic attack Review of Systems Constitutional: no fever, no chills, no sweats, no weakness Skin: no Jaundice, no rash, no lesions, nopetechiae ENMT: no ear pain, no sore throat, no congestion, no hoarseness Respiratory: moderate shortness of breath, no cough, no orthopnea, no wheezing Cardiovascular: mild chest pain, no palpitations, no edema Gastrointestinal: no nausea, no vomiting, no diarrhea, no GI bleeding Genitourinary: no dysuria, no hematuria, no discharge, no pain Musculoskeletal: no back pain, no trauma Neurologic: no headache, no dizziness, no numbness, no weakness Psychiatric: no sleeping problems, no irritability, no mood swings/depression. Heme/Lymph: no bleeding tendency, no bruising tendency, no petechiae, no swollen nodes Allergy/Immunologic: no seasonal allergies, no food allergies, no recurrent infections, no impaired immunity Additional ROS info: Except as noted in the above Review of Systems and in the History of Present Illness all other systems have been reviewed and are negative or noncontributory. Objective Vitals & Measurements T: 36.3 ?C(Axillary) TMIN: 35.6 ?C(Oral) TMAX: 36.9 ?C(Oral) HR: 81(Monitored) RR: 24 BP: 109/69 SpO2: 100% HT: 157.48 cm WT: 79.4 kg Intake & Output This visit (24 hour periods starting at 07:00 EDT) 11/26/22 * 11/25/22 11/24/22 Total Summary Intake mL 1 9 -- Output mL -- -- -- Fluid Balance 1 9 -- Intake (4) dexamethasone mL -- 2 -- methylPREDNISolone mL 1 3 -- morphine mL -- 2 -- ondansetron mL -- 2 -- Total 1 9 -- Output (0) Counts (0) * This column has not completed the indicated time period. Physical Exam Constitutional: Awake and alert; oriented x3 with no apparent distress in mild respiratory distress Head/neck: Neck supple with no palpable lymphadenopathy, bruits or masses; trachea midline Chest/lungs: Diminished but clear with no wheezes or rhonchi; mild respiratory distress with use of accessory muscles Cardiovascular: Regular rate and rhythm; normal S1-S2 with no murmur; no pitting edema 2+ pulses bilaterally Gastrointestinal: Soft, nontender, nondistended, positive bowel sounds Neurological: Nonfocal; cranial nerves II through XII appear intact Psychological: Pleasant affect Lab Results WBC: 13.5 E9/L High (11/26/22 05:56:00) RBC: 3.4 E12/L Low (11/26/22 05:56:00) HGB: 11.2 gm/dL Low (11/26/22 05:56:00) Hct: 32.5 % Low (11/26/22 05:56:00) MCV: 95.6 fL (11/26/22 05:56:00) MCH: 32.9 pg (11/26/22 05:56:00) MCHC: 34.5 gm/dL (11/26/22 05:56:00) RDW: 13.5 % (11/26/22 05:56:00) Platelet: 252 E9/L (11/26/22 05:56:00) MPV: 8.4 fL (11/26/22 05:56:00) Neutro Auto: 81.4 % High (11/25/22 15:37:00) Lymph Auto: 9.3 % Low (11/25/22 15:37:00) Pima Auto: 8.5 % (11/25/22 15:37:00) Eos Auto: 0.5 % (11/25/22 15:37:00) Basophil Auto: 0.3 % (11/25/22 15:37:00) Neutro Absolute: 14.1 E9/L High (11/25/22 15:37:00) Lymph Absolute: 1.6 E9/L (11/25/22 15:37:00) Pima Absolute: 1.5 E9/L High (11/25/22 15:37:00) Eos Absolute: 0.1 E9/L (11/25/22 15:37:00) Basophil Absolute: 0.1 E9/L (11/25/22 15:37:00) Segs Man: 83 % High (11/26/22 05:56:00) Band Man: 8 % (11/26/22 05:56:00) Lymph Man: 9 % Low (11/26/22 05:56:00) Monocyte Man: 0 % Low (11/26/22 05:56:00) Eos Man: 0 % (11/26/22 05:56:00) Basophil Man: 0 % (11/26/22 05:56:00) React Lymph Man: 0 % (11/26/22 05:56:00) Segs Abs Man: 12.3 E9/L High (11/26/22 05:56:00) Lymph Abs Man: 1.2 E9/L (11/26/22 05:56:00) Pima Abs Man: 0 E9/L Low (11/26/22 05:56:00) Eos Abs Man: 0 E9/L (11/26/22 05:56:00) Basophil Abs Man: 0 E9/L (11/26/22 05:56:00) RBC Morph: Normal (11/26/22 05:56:00) PT: 14 second(s) High (11/26/22 05:56:00) INR: 1.2 (11/26/22 05:56:00) PTT: 30.2 second(s) (11/26/22 05:56:00) Glucose Lvl: 147 mg/dL (11/26/22 05:56:00) BUN: 15 mg/dL (11/26/22 05:56:00) Creatinine: 0.7 mg/dL (11/26/22 05:56:00) eGFR: 91 mL/min/1.73 m2 (11/26/22 05:56:00) BUN/Creat Ratio: 21 High (11/26/22 05:56:00) Sodium Lvl: 136 mmol/L (11/26/22 05:56:00) Potassium Lvl: 4 mmol/L (11/26/22 05:56:00) Chloride: 101 mmol/L (11/26/22 05:56:00) CO2: 29 mmol/L (11/26/22 05:56:00) AGAP: 10 mEq/L (11/26/22 05:56:00) Calcium Lvl: 9.3 mg/dL (11/26/22 05:56:00) Alk Phos: 97 Int._Unit/L (11/25/22 16:39:00) ALT: 13 Int._Unit/L (11/25/22 16:39:00) AST: 28 Int._Unit/L (11/25/22 16:39:00) Total Protein: 6.9 gm/dL (11/25/22 16:39:00) Albumin Lvl: 3.2 gm/dL Low (11/25/22 16:39:00) Globulin: 3.7 gm/dL (11/25/22 16:39:00) A/G Ratio: 0.9 Low (11/25/22 16:39:00) Bili Total: 0.9 mg/dL (11/25/22 16:39:00) Bili Direct: 0.3 mg/dL (11/25/22 16:39:00) Bili Indirect: 0.6 mg/dL (11/25/22 16:39:00) Troponin: 7.2 pg/mL L (more content not included)... Normal [facility] Comment on above: Result Comment: Elec tronically Signed By: Kodi Hong DO\.br\Date and Time Signed: 11/26/22 12:10 EDT Respiratory Panel by PCRon 0 11-26-2022 Adenovirus DNA SNEHA+non-probe Ql (Nph) Not detected Normal [facility] Comment on above: Result Comment: Test ing was performed using nucleic acid amplification including Influenza A, Influenza A H1, Influenza A H3, Influenza B, RSV A, RSV B, Adenovirus, Human Metapneumovirus, Parainfluenza 1,2,3, and 4, Rhinovirus, Bordetella parapertussis/bronchiseptica, Bordetella holmesii, and Bordetella pertussis. Performed By: #### 2 642794, 15617023, 18422456, 1721672, 9525788, 90755667 #### [facility] [address] [place] [address] B. parapertussis DNA SNEHA+probe Ql (Upper resp) Not detected Normal Not Detected [facility] Comment on above: Performed By: #### 2 928781, 29560981, 55101631, 2877378, 8751803, 10856224 #### [facility] [address] [place] [address] B. pertussis DNA SNEHA+probe Ql (Upper resp) Not detected Normal Not Detected [facility] Comment on above: Performed By: #### 2 957172, 74877766, 28274349, 2476685, 4738099, 00550791 #### [facility] [address] [place] [address] FLUAV H1 RNA SNEHA+non-probe Ql (Nph) Not detected Normal [facility] Comment on above: Performed By: #### 2 768281, 64917717, 77507443, 8678186, 3124682, 52188993 #### [facility] [address] [place] [address] FLUAV H3 RNA SNEHA+non-probe Ql (Nph) Not detected Normal [facility] Comment on above: Performed By: #### 2 271842, 24597158, 70303767, 4424179, 3344089, 01335158 #### [facility] [address] [place] [address] FLUAV RNA SNEHA+non-probe Ql (Nph) Not detected Normal [facility] Comment on above: Performed By: #### 2 308104, 32032660, 82302661, 4591450, 0324047, 94627407 #### [facility] [address] [place] [address] FLUBV RNA SNEHA+non-probe Ql (Nph) Not detected Normal [facility] Comment on above: Performed By: #### 2 561111, 52998708, 29843360, 9059959, 0324438, 39082854 #### [facility] [address] [place] [address] Human Metapneumovirus Not detected Normal [facility] Comment on above: Result Comment: This test result should be correlated with clinical presentations and medical history by a healthcare provider to determine its clinical significance. Performed By: #### 2 797242, 89342556, 88271471, 2437627, 2191810, 17443301 #### [facility] [address] [place] [address] Parainfluenza virus 1 RNA SNEHA+non-probe Ql (Nph) Not detected Normal [facility] Comment on above: Performed By: #### 2 627488, 41378243, 47705507, 9343943, 7059855, 93600431 #### [facility] [address] [place] [address] Parainfluenza virus 2 RNA SNEHA+non-probe Ql (Nph) Not detected Normal [facility] Comment on above: Performed By: #### 2 278203, 97847209, 56629623, 4470630, 4979825, 17873009 #### [facility] [address] [place] [address] Parainfluenza virus 3 RNA SNEHA+non-probe Ql (Nph) Not detected Normal [facility] Comment on above: Performed By: #### 2 183686, 29208262, 11667682, 3951071, 8963702, 10384722 #### [facility] [address] [place] [address] Parainfluenza virus 4 RNA SNEHA+non-probe Ql (Nph) Not detected Normal [facility] Comment on above: Performed By: #### 2 180306, 36519125, 64842943, 1949184, 1899491, 90391608 #### [facility] [address] [place] [address] Resp Panel Intrl QC Pass Normal [facility] Comment on above: Performed By: #### 2 856276, 71934880, 79490792, 4833849, 8410672, 22390451 #### [facility] [address] [place] [address] Rhinovirus+Enterovirus RNA SNEHA+non-probe Ql (Nph) Not detected Normal [facility] Comment on above: Performed By: #### 2 581379, 22131756, 25640879, 4962886, 3797592, 26300335 #### [facility] [address] [place] [address] RSV RNA SNEHA+non-probe Ql (Nph) Not detected Normal [facility] Comment on above: Performed By: #### 2 247541, 50190852, 00248879, 6783143, 4601656, 69713738 #### [facility] [address] [place] [address] Troponin 9 Hr.on 11-26-2022 Troponin I.cardiac [Mass/Vol] 7.20 pg/mL Low 10.10-27.1 0 [facility] Comment on above: Order Comment: @0030 Result Comment: The 95% CI (Confidence Interval) PPV (Positive Predictive Value) for myocardial infarction in females is 38 pg/mL, in males 51 pg/mL. The results should be used in conjunction with clinical conditions of myocardial infarction. (Access High Sensitivity Troponin I Instructions For Use, Kip SQMOS, November 2017) Performed By: #### 1 [id number] #### [facility] [address] [place] [address] eGFRon 11-26-2022 GFR/1.73 sq M.predicted among non-blacks MDRD (S/P/Bld) [Vol rate/Area] 91 mL/min/1.73 m2 Normal >=59 [facility] Comment on above: Order Comment: Order added by Discern Expert. Result Comment: [employer] [place] kidney disease could be indicated at eGFR's of less than 60 mL/min/1.73m2. Kidney failure is indicated at less than 15 mL/min/1.73m2. Performed By: #### 2 829349, 95716825, 61323926, 3926766, 8963909, 85371887 #### [facility] [address] [place] [address] Auto Diffon 11-25-2022 Basophils/100 WBC (Bld) 0.3 % Normal 0.0-2.0 [facility] Comment on above: Order Comment: Order Added by Discern Expert. Performed By: #### 1 1961694, [id number], 5366048, 5267581, 5161244, 56210333, 10200641, 99440458, 8984809 ####[address] [place] [address] Basophils/Leukocytes Auto (Bld) [Pure # fraction] 0.1 E9/L Normal 0.0-0.2 [facility] Comment on above: Order Comment: Order Added by Discern Expert. Performed By: #### 1 8748639, [id number], 1381108, 8025444, 7315638, 29907705, 48615403, 95871437, 3119477 ####[address] [place] [address] Eosinophils/100 WBC (Bld) 0.5 % Normal 0.0-8.0 [facility] Comment on above: Order Comment: Order Added by Discern Expert. Performed By: #### 1 0588477, [id number], 3471689, 1625444, 8624765, 64251253, 83637866, 85489701, 9331310 ####[facility] [address] [place] [address] Eosinophils/Leukocytes Auto (Bld) [Pure # fraction] 0.1 E9/L Normal 0.0-0.5 [facility] Comment on above: Order Comment: Order Added by Discern Expert. Performed By: #### 1 [id number], [id number], 5132236, 8578717, 6798325, 19875648, 29030480, 90420109, 0454630 ####[facility] [address] [place] [address] Lymphocytes/100 WBC (Bld) 9.3 % Low 14.0-50.0 [facility] Comment on above: Order Comment: Order Added by Discern Expert. Performed By: #### 1 [id number], [id number], 2868609, 8183286, 3806547, 56714523, 38479024, 55472547, 1429723 ####[address] [place] [address] Lymphocytes/Leukocytes Auto (Bld) [Pure # fraction] 1.6 E9/L Normal 1.0-4.0 [facility] Comment on above: Order Comment: Order Added by Discern Expert. Performed By: #### 1 6567178, [id number], 8797000, 2517397, 2384876, 40199192, 13477543, 64013094, 9853938 ####[address] [address] Monocytes/100 WBC (Bld) 8.5 % Normal 4.0-14.0 [facility] Comment on above: Order Comment: Order Added by Discern Expert. Performed By: #### 1 3485564, 3819936309, 5556417, 0334084, 3393882, 52023949, 73607794, 45177139, 5877393 ####[address] [place] [address] Monocytes/Leukocytes Auto (Bld) [Pure # fraction] 1.5 E9/L High 0.2-1.0 [facility] Comment on above: Order Comment: Order Added by Discern Expert. Performed By: #### 1 3004235, [id number], 6415492, 6581310, 4450356, 00588331, 21441231, 68667542, 8756435 ####[address] [place] [address] Neutrophils/100 WBC (Bld) 81.4 % High 36.0-75.0 [facility] Comment on above: Order Comment: Order Added by Sandy Expert. Performed By: #### 1 3314192, [id number], 4486836, 3307951, 0042866, 57202205, 92629532, 50035657, 6895890 ####[facility] [address] [place] [address] Neutrophils/Leukocytes Auto (Bld) [Pure # fraction] 14.1 E9/L High 2.0-7.5 [facility] Comment on above: Order Comment: Order Added by Discern Expert. Performed By: #### 1 0303135, 8775504091, 2007844, 0074758, 3763563, 42321405, 05817297, 52076053, 8433620 ####[facility] [address] [place] [address] BMPon 11-25-2022 Creatinine [Mass/Vol] 0.7 mg/dL Normal 0.5-1.3 [facility] Comment on above: Order Comment: Hemol yzed specimen. Notified Gisela in ER. Will recollect. Performed By: #### 2 044358, 28641459, 96596022, 3062168, 7425090, 14332019 #### [facility] [address] [place] [address] Urea nitrogen [Mass/Vol] 10 mg/dL Normal 5-21 [facility] Comment on above: Order Comment: Hemol yzed specimen. Notified Gisela in ER. Will recollect. Performed By: #### 2 686873, 50863214, 61301529, 3594687, 1677331, 17224194 #### [facility] [address] [place] [address] Urea nitrogen/Creatinine [Mass ratio] 14 No Units Normal 10-20 [facility] Comment on above: Order Comment: Hemol yzed specimen. Notified Gisela in ER. Will recollect. Performed By: #### 2 866041, 54746598, 25115800, 3292045, 3741751, 28858966 #### [facility] [address] [place] [address] Anion gap [Moles/Vol] 13 mmol/L Normal 6-16 [facility] Comment on above: Order Comment: Hemol yzed specimen. Notified Gisela in ER. Will recollect. Performed By: #### 2 602442, 21322135, 12470112, 0167460, 2185578, 06166454 #### [facility] [address] [place] [address] Calcium [Mass/Vol] 9.6 mg/dL Normal 8.9-11.1 [facility] Comment on above: Order Comment: Hemol yzed specimen. Notified Gisela in ER. Will recollect. Performed By: #### 2 641611, 14401528, 81979452, 3749554, 9403232, 23209701 #### [facility] [address] [place] [address] Chloride [Moles/Vol] 99 mmol/L Low 101-111 [facility] Comment on above: Order Comment: Hemol yzed specimen. Notified Gisela in ER. Will recollect. Performed By: #### 2 206755, 02954222, 27890283, 4054396, 4818427, 93981106 #### [facility] [address] [place] [address] CO2 [Moles/Vol] 27 mmol/L Normal 21-31 [facility] Comment on above: Order Comment: Hemol yzed specimen. Notified Gisela in ER. Will recollect. Performed By: #### 2 648160, 52039017, 98620206, 9893460, 3470044, 07464163 #### [facility] [address] [place] [address] Glucose [Mass/Vol] 99 mg/dL Normal 55-199 [facility] Comment on above: Order Comment: Hemol yzed specimen. Notified Gisela in ER. Will recollect. Result Comment: If t his glucose result represents a fasting glucose, interpretation should refer to the following reference range: 55-99 mg/dL Performed By: #### 2 649992, 15065392, 74515705, 3101430, 2928093, 70593793 #### [facility] [address] [place] [address] Potassium [Moles/Vol] 3.7 mmol/L Normal 3.5-5.3 [facility] Comment on above: Order Comment: Hemol yzed specimen. Notified Gisela in ER. Will recollect. Performed By: #### 2 036260, 04466604, 92468633, 3367586, 6453495, 64550140 #### [facility] [address] [place] [address] Sodium [Moles/Vol] 135 mmol/L Normal 135-145 [facility] Comment on above: Order Comment: Hemol yzed specimen. Notified Gisela in ER. Will recollect. Performed By: #### 2 200705, 73773090, 46218109, 8237007, 2074862, 77958233 #### [facility] [address] [place] [address] BNPon 11-25-2022 Natriuretic peptide B (Bld) [Mass/Vol] 53 pg/mL Normal 5-80 [facility] Comment on above: Performed By: #### 1 1947028, 9426508652, 9997921, 2963990, 9667381, 50879559, 20200798, 09052835, 9796494 ####[facility] [address] [place] [address] Blood Gas Art, with Lytes, G gary, [place] 11-25-2022 a/A Ratio Art 35.40 % Normal >=0.80 [facility] Comment on above: Performed By: #### 4 95930621 ####[facility] [address] [place] [address] AaDO2 Art 109.3 mmHg High 5.0-15.0 [facility] Comment on above: Performed By: #### 4 [id number] ####[facility] [address] [place] [address] Allens Test Positive Normal [facility] Comment on above: Performed By: #### 4 57469584 ####[facility] [address] [facility] [place] [address] Base Excess Arterial 1.7 mmol/L Low >=2.8 [facility] Comment on above: Performed By: #### 4 55297556 ####[facility] [address] [facility] [place] [address] cCa2+ Art 5.23 mg/dL Normal 4.40-5.30 [facility] Comment on above: Performed By: #### 4 84644989 ####[address] [place] [address] cCl- Art 100.0 mmol/L Low 101.0-111. 0 [facility] Comment on above: Performed By: #### 4 87171043 ####[address] [place] [address] cGlu Art 98 mg/dL Normal 55-99 [facility] Comment on above: Performed By: #### 4 71041129 ####[address] [place] [address] cK+ Art 3.6 mmol/L Normal 3.5-5.3 [facility] Comment on above: Performed By: #### 4 57407936 ####[address] [place] [address] cLac Art .8 mmol/L Normal .5-2.2 [facility] Comment on above: Performed By: #### 4 96809361 ####[address] [place] [address] mini baccarat dealer+ Art 137.0 mmol/L Normal 135.0-145. 0 [facility] Comment on above: Performed By: #### 4 64075817 ####[address] [place] [address] Device Cannula Normal [facility] Comment on above: Performed By: #### 4 [id number] ####[address] [facility] Invalid Interpretation Code [facility] Comment on above: Performed By: #### 4 [id number] ####[facility] [address] [place] [address] FCOHb Art 1.8 % Normal 1.5-4.9 [facility] Comment on above: Result Comment: Refe rence range Nonsmoker <1.5% Smoker <5.0% Heavy Smoker <9.0% Performed By: #### 4 71512879 ####[facility] [address] [place] [address] FIO2 BG 32 Invalid Interpretation Code [facility] Comment on above: Performed By: #### 4 61354052 ####[address] [place] [address] FMetHb Art 0.2 % Normal 0.0-1.9 [facility] Comment on above: Performed By: #### 4 14840739 ####[address] [address] FO2Hb Art 90.0 % Low 92.0-100.0 [facility] Comment on above: Performed By: #### 4 76992602 ####[address] [address] HCO3 (Bld) [Moles/Vol] 25.8 mmol/L Normal 22.0-26.0 [facility] Comment on above: Performed By: #### 4 [id number] ####[facility] [address] [place] [address] Hemoglobin (Bld) [Mass/Vol] 11.3 g/dL Low 12.0-16.0 [facility] Comment on above: Performed By: #### 4 96515031 ####[address] [place] [address] Oxygen saturation in Blood 91.8 % Low 95.0-100.0 [facility] Comment on above: Performed By: #### 4 74068733 ####[address] [address] P CO2 Arterial 47.7 mmHg High 35.0-45.0 [facility] Comment on above: Performed By: #### 4 80846129 ####[facility] [address] [place] [address] P O2 Arterial 59.9 mmHg Low 80.0-100.0 [facility] Comment on above: Performed By: #### 4 22776606 ####[facility] [address] pH Arterial 7.370 Normal 7.350-7.45 0 [facility] Comment on above: Performed By: #### 4 50995583 ####[address] Sample Site L Radial Normal [facility] Comment on above: Performed By: #### 4 23673697 ####[address] [address] Sample Type Arterial Draw Normal [facility] Comment on above: Performed By: #### 4 21622072 ####[facility] [address] [place] [address] CBC w/ Auto Diffon 3 Erythrocyte distribution width (RBC) [Ratio] 14.1 % Normal 10.9-14.2 [facility] Comment on above: Performed By: #### 1 0661354, 4705083288, 2147602, 6381422, 7307592, 47273230, 98385895, 35292558, 6016723 ####[facility] [address] [place] [address] Hematocrit (Bld) [Volume fraction] 33.9 % Low 34.0-46.0 [facility] Comment on above: Performed By: #### 1 8186796, 1559875754, 6707708, 4035038, 7702997, 78093997, 50061854, 99767225, 1662512 ####[facility] [address] [place] [address] Hemoglobin (Bld) [Mass/Vol] 11.6 g/dL Low 12.0-16.0 [facility] Comment on above: Performed By: #### 1 1949829, 9556463411, 3686135, 8212230, 8333251, 04683360, 55959612, 60881273, 1165384 ####[facility] [address] [place] [address] MCH (RBC) [Entitic mass] 32.4 pg Normal 27.0-34.0 [facility] Comment on above: Performed By: #### 1 1449606, 7974034028, 6432452, 0299815, 8709022, 37179607, 34683285, 57520290, 1105306 ####[address] [place] [address] MCHC (RBC) [Mass/Vol] 34.1 g/dL Normal 31.4-36.0 [facility] Comment on above: Performed By: #### 1 2302595, 0174344755, 9468836, 1904844, 9848428, 09240141, 93531647, 23548417, 2910906 ####[address] [address] MCV (RBC) [Entitic vol] 95.0 fL Normal 80.0-100.0 [facility] Comment on above: Performed By: #### 1 9429323, 9931503294, 1899819, 2843564, 5317966, 83360802, 09719469, 79623784, 2976893 ####[address] [place] [address] Platelet mean volume (Bld) [Entitic vol] 8.7 fL Normal 6.4-10.8 [facility] Comment on above: Performed By: #### 1 0260905, 4148742803, 0726522, 1758716, 5651141, 38645499, 78825047, 92428550, 3385857 ####[address] [address] Platelets (Bld) [#/Vol] 298.0 E9/L Normal 150.0-500. 0 [facility] Comment on above: Performed By: #### 1 2591130, 6137737068, 2701375, 5689879, 0679914, 48432721, 95067450, 18004739, 8153791 ####[facility] [address] [place] [address] RBC (Bld) [#/Vol] 3.6 E12/L Low 4.3-5.9 [facility] Comment on above: Performed By: #### 1 3254014, 0139467989, 5322207, 2096609, 0722611, 48574913, 96270027, 07826589, 4393616 ####[facility] [address] [place] [address] WBC corrected for nucl RBC Auto (Bld) [#/Vol] 17.3 E9/L High 4.0-11.0 [facility] Comment on above: Performed By: #### 1 4569057, 2590168507, 8608118, 7507060, 7195789, 85104676, 60981080, 86654389, 2035396 ####[facility] [address] [place] [address] CHEMISTRYOrdered By: SYSTEM SYSTEM on 11-25-2022 Albumin [Mass/Vol] 3.2 g/dL Low 3.3 - 5.0 gm/dL [facility] Remisol Albumin/Globulin [Mass ratio] 0.9 {ratio} Low 1.1 - 2.2 [facility] Remisol ALP [Catalytic activity/Vol] 97 [iU]/d Normal 21 - 98 Int._Unit/ L [facility] Remisol ALT No additional P-5'-P [Catalytic activity/Vol] 13 [iU]/d Normal 6 - 46 Int._Unit/ L [facility] Anion gap [Moles/Vol] 13 mmol/L Normal 6 - 16 mEq/L [facility] Remisol AST [Catalytic activity/Vol] 28 [iU]/d Normal 5 - 43 Int._Unit/ L [facility] Bilirubin [Mass/Vol] 0.9 mg/dL Normal 0.0 - 1 .1 mg/dL [facility]isol Bilirubin.direct [Mass/Vol] 0.3 mg/dL Normal 0.1 - 0.4 mg/dL [facility] Remisol Bilirubin.indirect [Mass or moles/Vol] 0.6 mg/dL Normal 0.1 - 0.9 mg/dL [facility] Calcium [Mass/Vol] 9.6 mg/dL Normal 8.9 - 11. 1 mg/dL [facility] Chloride [Moles/Vol] 99 mmol/L Low 101 - 1 11 mmol/L [facility] CO2 [Moles/Vol] 27 mmol/L Normal 21 - 31 mmol/L [facility] Creatinine [Mass/Vol] 0.7 mg/dL Normal 0.5 - 1.3 mg/dL [facility] GFR/1.73 sq M.predicted among non-blacks MDRD (S/P/Bld) [Vol rate/Area] 91 mL/min/1.73 m2 Normal >=59mL/min /1.73 m2 [facility] Chem S Globulin (S) [Mass/Vol] 3.7 g/dL Normal 1.4 - 4.0 gm/dL [facility] Remisol Glucose [Mass/Vol] 99 mg/dL Normal 55 - 199 mg/dL [facility] Remisol Potassium [Moles/Vol] 3.7 mmol/L Normal 3.5 - 5.3 mmol/L [facility] Procalcitonin 0.36 ng/mL Normal 0.00 - 0.50 ng/mL [facility] Protein [Mass/Vol] 6.9 g/dL Normal 6.0 - 7.8 gm/dL [facility] Sodium [Moles/Vol] 135 mmol/L Normal 135 - 145 mmol/L [facility] Urea nitrogen [Mass/Vol] 10 mg/dL Normal 5 - 21 mg/dL [facility] Urea nitrogen/Creatinine [Mass ratio] 14 mg/mg Normal 10 - 20 [facility] CHEMISTRYOrdered By: Hemalatha Pascual on 11-25-2022 Natriuretic peptide B (Bld) [Mass/Vol] 53 pg/mL Normal 5 - 80 pg/mL FT HemeManSS COAGULATIONOrdered By: Gab Robb on 11-25-2022 aPTT Coag (PPP) [Time] 33.0 s Normal 25.1 - 36.5 second(s) [facility] Auto Coag INR Coag (PPP) [Relative time] 1.2 {INR} Invalid Interpretation Code [facility] Auto Coag PT Coag (PPP) [Time] 13.7 s High 9.4 - 1 2.5 second(s) [facility] Auto Coag Consent for Treatmenton 11-07 Consent for Treatment [id number] Normal [facility] ED Note-Physicianon 11-26-19 ED Note-Physician Basic Information Time Seen: Td Wang PA-C 11/25/2022 15:13 Chief Complaint Pt reports SOB and chest pain for 4 days that is getting worse. Wears home 02 @ 3L but up to 4L. hx of COPD. Prod cough with green sputum. History of Present Illness 72-year-old female with a history of COPD presents ED with complaint of 4 days of shortness of breath as well as chest pain with coughing. Patient ports her cough has been productive of green sputum. Patient denies any fevers, is having chills. Patient denies any history of CHF. Patient denies any chest pain with exertion, complaining of chest pain with coughing only. Patient denies any known ill exposures. Patient denies any nausea or vomiting. Patient does report a history of COPD exacerbations which presented similarly. Patient has COPD exacerbation which required hospitalization occurred in spring of this year. Review of Systems Full 10 system ROS performed. Pt denies symptoms except as noted above in the HPI. Physical Exam Vitals & Measurements T: 36.9 ?C(Oral) HR: 97(Peripheral) RR: 26 BP: 148/77 SpO2: 88% HT: 158 cm WT: 82.6 kg BMI: 33.09 VITALS: I have reviewed the triage vital signs. GENERAL: Patient appears fatigued, uncomfortable NEURO: Alert and oriented. Moves all extremities. Face is symmetric and expressive. EYES: PERRL. No scleral icterus or conjunctival injection. No discharge. HENT: Normocephalic, atraumatic. Hearing is grossly intact. Nares grossly patent and without discharge. Mucous membranes moist. NECK: No JVD. Patient moves neck without restriction. CARDIO: Rhythm regular. Normal rate. No murmur, rub, or gallop. Pulses equal bilaterally in the upper and lower extremity. No lower extremity edema. PULM: Diffuse adventitious lung sounds, patient is tachypneic, patient satting at 87-88% on her baseline O2, satting well 90 to 93% when up from 3 L to 4 L. GI/: Abdomen is soft and non-tender. Normoactive bowel sounds. EXTREMITIES: Symmetric muscle bulk. No joint swelling. No clubbing, cyanosis, or deformity. SKIN: Warm and dry. Normal turgor. No rash or lesions appreciated. PSYCH: Mood, affect, and interaction is appropriate to the setting. Medical Decision Making MEDICAL DECISION MAKING Number and Complexity of Problems Differential Diagnosis: [] [facility] Data External documents reviewed: [] My EKG interpretation: [] My CT interpretation: [] My X-ray interpretation: [] My Ultrasound interpretation: [] Decision rules/scores evaluated: Heart Score for Major Cardiac Event History: Example factors for history - pattern of chest pain, onset, duration, relation with exercise, stress or cold, localization, concominant symptoms. reaction to sublingual nitrates, [] Highly suspicious +2 [] Moderately suspicious +1 [x] Slightly suspicious 0 EKG: [] Significant ST-Depression +2 [x] Non specific repolarization disturbance +1 [] Normal 0 Age: [x] >= 65 +2 [] 45-65 + 1 [] <45 0 Risk Factors: (HLD, HTN, DM, Cigarette Smoking, Pos Family Hx, Obesity) [] >3 risk factors or hx of atheroslerotic disease + 2 [x] 1-2 risk factors + 1 [] No risk factors known 0 Troponin: [] >= 3X normal + 2 [] 1-3X normal + 1 [x] <= Normal 0 Discussed with: [] Treatment and Disposition ED Course: Patient presents ED with complaint of chest pain shortness of breath over the last 4 days. Patient with history of COPD. Work-up in ED reviewed and noted. Patient notably hypoxic on ABG. After breathing treatment, patient satting well on her baseline O2. Patient also with leukocytosis. Due to the leukocytosis and shortness of breath, I did cover patient for possible pneumonia with antibiotics. Due to acute hypoxemic respiratory failure, did discuss patient with hospitalist who agreed admit patient. Patient admitted to medicine. CC time: 31 minutes Due to a high probability of clinically significant, life threatening deterioration, the patient required my highest level of preparedness to intervene emergently and I personally spent this critical care time directly and personally managing the patient. This critical care time included obtaining a history; examining the patient; pulse oximetry; ordering and review of studies; arranging urgent treatment with development of a management plan; evaluation of patient's response to treatment; frequent reassessment; and, discussions with other providers. This critical care time was performed to assess and manage the high probability of imminent, life-threatening deterioration that could result in patient deterioration. It was exclusive of separately billable procedures and treating other patients and teaching time. Shared decision making: [] Code status: [] Assessment/Plan 1. Acute on chronic respiratory failure with hypoxia (J96.21: Acute and chronic respiratory failure with hypoxia) 2. Acute exacerbation of chronic obstructive pulmonary disease (COPD) (J44.1: Chronic obstructive pulm (more content not included)... Normal [facility] Comment on above: Result Comment: Elec tronically Signed By: Td Wang PA-C\.br\Date and Time Signed: 11/25/22 17:28 EDT\.br\Electronically Co-Signed By: Nelson Casillas DO\.br\Date and Time Co-Signed: 11/25/22 18:51 EDT FT Blood GasesOrdered By: Derik Baires on 11-25-2022 a/A Ratio Art 35.40 % Normal >=0.80% [facility] Resp Auto SS AaDO2 Art 109.3 mm[Hg] High 5.0 - 15.0 mmHg FT Resp Auto SS Allens Test Positive (11/25/22 4:34 PM) Normal [facility] Resp Auto SS Base Excess Arterial 1.7 mmol/L Low >=2.8mm ol/ L [facility] Resp Auto SS cCa2+ Art 5.23 mg/dL Normal 4.40 - 5.30 mg/dL [facility] Resp Auto SS cCl- Art 100.0 mmol/L Low 101.0 - 111.0 mmol/L [facility] Resp Auto SS cGlu Art 98 mg/dL Normal 55 - 99 mg/dL [facility] Resp Auto SS cK+ Art 3.6 mmol/L Normal 3.5 - 5.3 mmol/L [facility] Resp Auto SS cLac Art 0.8 mmol/L Normal 0.5 - 2.2 mmol/L [facility] Resp Auto SS mini baccarat dealer+ Art 137.0 mmol/L Normal 135.0 - 145.0 mmol/L [facility] Resp Auto SS Device Cannula (11/25/22 4:34 PM) Normal [facility] Resp Auto SS Drawn by [facility] Invalid Interpretation Code [facility] Resp Auto SS FCOHb Art 1.8 % Normal 1.5 - 4.9 % [facility] Resp Auto SS FIO2 BG 32 Invalid Interpretation Code [facility] Resp Auto SS FMetHb Art 0.2 % Normal 0.0 - 1.9 % [facility] Resp Auto SS FO2Hb Art 90.0 % Low 92.0 - 100.0 % [facility] Resp Auto SS HCO3 (Bld) [Moles/Vol] 25.8 mmol/L Normal 22.0 - 26.0 mmol/L [facility] Resp Auto SS Hemoglobin (Bld) [Mass/Vol] 11.3 g/dL Low 12.0 - 16.0 gm/dL [facility] Resp Auto SS P CO2 Arterial 47.7 mm[Hg] High 35.0 - 45.0 mmHg [facility] Resp Auto SS P O2 Arterial 59.9 mm[Hg] Low 80.0 - 100.0 mmHg [facility] Resp Auto SS pH Arterial 7.370 Normal 7.350 - 7.450 [facility] Resp Auto SS Sample Site L Radial (11/25/22 4:34 PM) Normal [facility] Resp Auto SS Sample Type Arterial Draw (11/25/22 4:34 PM) Normal [facility] Resp Auto SS HEMATOLOGYOrdered By: SYSTEM SYSTEM on 11-25-2022 Basophils/100 WBC (Bld) 0.3 % Normal 0.0 - 2.0 % [facility] HemeAutoSS Basophils/Leukocytes Auto (Bld) [Pure # fraction] 0.1 E9/L Normal 0.0 - 0.2 E9/L [facility] HemeAutoSS Eosinophils/100 WBC (Bld) 0.5 % Normal 0.0 - 8.0 % [facility] HemeAutoSS Eosinophils/Leukocytes Auto (Bld) [Pure # fraction] 0.1 E9/L Normal 0.0 - 0.5 E9/L [facility] HemeAutoSS Lymphocytes/100 WBC (Bld) 9.3 % Low 14.0 - 50.0 % [facility] HemeAutoSS Lymphocytes/Leukocytes Auto (Bld) [Pure # fraction] 1.6 E9/L Normal 1.0 - 4.0 E9/L [facility] HemeAutoSS Monocytes/100 WBC (Bld) 8.5 % Normal 4.0 - 14.0 % [facility] HemeAutoSS Monocytes/Leukocytes Auto (Bld) [Pure # fraction] 1.5 E9/L High 0.2 - 1.0 E9/L [facility] HemeAutoSS Neutrophils/100 WBC (Bld) 81.4 % High 36.0 - 75.0 % [facility] HemeAutoSS Neutrophils/Leukocytes Auto (Bld) [Pure # fraction] 14.1 E9/L High 2.0 - 7.5 E9/L [facility] HemeAutoSS HEMATOLOGYOrdered By: Hemalatha Pascual on 11-25-2022 Erythrocyte distribution width (RBC) [Ratio] 14.1 % Normal 10.9 - 14.2 % [facility] HemeAutoSS Hematocrit (Bld) [Volume fraction] 33.9 % Low 34.0 - 46.0 % [facility] HemeAutoSS Hemoglobin (Bld) [Mass/Vol] 11.6 g/dL Low 12.0 - 16.0 gm/dL [facility] HemeAutoSS MCH (RBC) [Entitic mass] 32.4 pg Normal 27.0 - 34.0 pg [facility] HemeAutoSS MCHC (RBC) [Mass/Vol] 34.1 g/dL Normal 31.4 - 36.0 gm/dL [facility] HemeAutoSS MCV (RBC) [Entitic vol] 95.0 fL Normal 80.0 - 100.0 fL [facility] HemeAutoSS Platelet mean volume (Bld) [Entitic vol] 8.7 fL Normal 6.4 - 10.8 fL [facility] HemeAutoSS Platelets (Bld) [#/Vol] 298.0 E9/L Normal 150.0 - 500.0 E9/L [facility] HemeAutoSS RBC (Bld) [#/Vol] 3.6 E12/L Low 4.3 - 5.9 E12/L [facility] HemeAutoSS WBC corrected for nucl RBC Auto (Bld) [#/Vol] 17.3 E9/L High 4.0 - 11.0 E9/L [facility] HemeAutoSS Hep Func Panelon 11-25-2022 Albumin [Mass/Vol] 3.2 g/dL Low 3.3-5.0 [facility] Comment on above: Performed By: #### 2 [id number], 12258312, 61148797, 4008127, 1067538, 58920549 #### [facility] [address] [place] [address] Albumin/Globulin (S) [Mass conc ratio] 0.9 Low 1.1-2.2 [facility] Comment on above: Performed By: #### 2 441550, 30693994, 31349370, 8197788, 2137975, 66403227 #### [facility] [address] [place] [address] ALP [Catalytic activity/Vol] 97 Int._Unit/L Normal 21-98 [facility] Comment on above: Performed By: #### 2 753947, [id number], [id number], 6892352, 0117798, [id number] #### [facility] [address] [place] [address] ALT No additional P-5'-P [Catalytic activity/Vol] 13 Int._Unit/L Normal 6-46 [facility] Comment on above: Performed By: #### 2 762208, [id number], 57099896, 4154336, 7934113, 86468355 #### [facility] [address] [place] [address] AST [Catalytic activity/Vol] 28 Int._Unit/L Normal 5-43 [facility] Comment on above: Performed By: #### 2 266392, 12070876, 53599947, 9031104, 1517064, 50640655 #### [facility] [address] [place] [address] Bilirubin [Mass/Vol] 0.9 mg/dL Normal 0.0-1.1 [facility] Comment on above: Performed By: #### 2 533927, 23837415, 10682828, 9453079, 6726232, 38244851 #### [facility] [address] [place] [address] Bilirubin.direct [Mass/Vol] 0.3 mg/dL Normal 0.1-0.4 [facility] Comment on above: Performed By: #### 2 658879, 75644429, 06891843, 6994804, 5025084, 86719487 #### [facility] [address] [place] [address] Bilirubin.indirect [Mass or moles/Vol] 0.6 mg/dL Normal 0.1-0.9 [facility] Comment on above: Performed By: #### 2 959668, 35549346, 14436191, 7028252, 3918426, 99835304 #### [facility] [address] [place] [address] Globulin (S) [Mass/Vol] 3.7 g/dL Normal 1.4-4.0 [facility] Comment on above: Performed By: #### 2 944098, 05149011, 11004622, 8837720, 5494605, 15175590 #### [facility] [address] [place] [address] Protein [Mass/Vol] 6.9 g/dL Normal 6.0-7.8 [facility] Comment on above: Performed By: #### 2 244419, 88588303, 45162393, 5840614, 0807389, 85161352 #### [facility] [address] [place] [address] Laboratory - Microbiology an d Antimicrobial susceptibilityOrdered By: Pau Ward on 11-25-2022 Bacteria identified Respiratory culture Nom (Sput) 1+ Normal upper respiratory reji isolated [facility] Monitor Recordon 11-25-2022 Monitor Record [id number]:1 27 Normal [facility] No Panel InformationOrdered By: Pau Ward on 11-25-2022 GS 2+ White Blood Cells Occasional Gram Positive Cocci [facility] PT & PTTon 11-25-2022 aPTT Coag (PPP) [Time] 33.0 second(s) Normal 25.1-36.5 [facility] Comment on above: Result Comment: Para meter 15 days - 4 weeks 1 - 5 months 6 - 11 months 1 - 5 years 6 - 10 years 11 - 17 years PTT Mean: 35.4 (27.6-45.6) Mean: 33.5 (24.8-40.7) Mean: 32.4 (25.1-40.7) Mean: 31.6 (24.0-39.2) Mean: 31.6 (26.9-38.7) Mean: 31.0 (24.6-38.4) Pediatric Reference ranges were obtained from a study by Rene Maloney et al. prepared from 1437 samples obtained at 7 different centers using the same coagulation reagent and instrumentation as [facility]. Currently there are no coagulation studies available worldwide for children to 14 days, and no normal ranges. Heparin therapeutic range (represented by Anti-Factor Xa activity of 0.2 - 0.4 U/mL) corresponds to PTT of 56.6 - 109.0 sec. Performed By: #### 1 [id number], [id number], 6016915, 0981975, 2190550, 09667156, 76620548, 57573664, 8229241 ####[facility] [address] [place] [address] INR Coag (PPP) [Relative time] 1.2 {INR} Invalid Interpretation Code [facility] Comment on above: Result Comment: INR results are specifically intended to assess patients stabilized on long-term Anticoagulation therapy suggested INR?s ?Less Intensive Anticoagulation? 2.0 ? 3.0 Conventional Range 3.0 ? 4.5 Performed By: #### 1 [id number], [id number], 1349620, 4708104, 0423150, 13543062, 77316427, 28033819, 8810121 ####[facility] [address] [place] [address] PT Coag (PPP) [Time] 13.7 second(s) High 9.4-12.5 [facility] Comment on above: Result Comment: 15 d ays - 4 weeks 1 - 5 months 6 -11 months 1 ? 5 years 6 ? 10 years 11 -17 years Mean: 11.2 (9.5 ? 12.6) Mean: 11.0 (9.7 ? 12.8) Mean: 11.0 (9.8 ? 13.0) Mean: 11.3 (9.9 ? 13.4) Mean: 11.7 (10.0 ? 14.6) Mean: 11.8 (10.0 - 14.1) Pediatric Reference ranges were obtained from a study by Rene Maloney et al. prepared from 1437 samples obtained at 7 different centers using the same coagulation reagent and instrumentation as [facility]. Currently there are no coagulation studies available worldwide for children to 14 days, and no normal ranges. Performed By: #### 1 [id number], [id number], 6372681, 8139812, 2723456, 76708669, 42609694, 42922277, 6359150 ####[facility] [address] [place] [address] Procalcitoninon 11-25-2022 Procalcitonin .36 ng/mL Normal .00-.50 [facility] Comment on above: Result Comment: <0.5 ng/mL Low risk of severe sepsis and/or shock >2.0 ng/mL High risk of severe sepsis and/or shock Concentrations under 0.5 ng/mL do not exclude local infections or systemic infections in their initial stages (e.g.. under six hours from onset of illness). PCT concentrations between 0.5 and 2.0 ng/mL should be interpreted with consideration of the patient's history. In this range, it is recommended to retest PCT within 6 to 24 hours. Performed By: #### 2 719939, 32972408, 77650472, 5108331, 7849441, 75123762 #### [facility] [address] [place] [address] RAD - Preliminary Cat Scan R eporton 11-25-2022 RAD - Preliminary Cat Scan Report [id number]:1 27 Normal [facility] Troponin 0 Hr.on 11-25-2022 Troponin I.cardiac [Mass/Vol] 11.40 pg/mL Normal 10.10-27.1 0 [facility] Comment on above: Result Comment: The 95% CI (Confidence Interval) PPV (Positive Predictive Value) for myocardial infarction in females is 38 pg/mL, in males 51 pg/mL. The results should be used in conjunction with clinical conditions of myocardial infarction. (Access High Sensitivity Troponin I Instructions For Use, [employer], November 2017) Performed By: #### 2 491747, 56209862, 61849913, 1661337, 9879235, 21587331 #### [facility] [address] [place] [address] Troponin 3 Hr.on 11-25-2022 Troponin I.cardiac [Mass/Vol] 8.40 pg/mL Low 10.10-27.1 0 [facility] Comment on above: Order Comment: will draw at 1930 since redraw was late after first tube was hemolyzed. [id number] 11/25/2022 17:23:50 EDT Result Comment: The 95% CI (Confidence Interval) PPV (Positive Predictive Value) for myocardial infarction in females is 38 pg/mL, in males 51 pg/mL. The results should be used in conjunction with clinical conditions of myocardial infarction. (Access High Sensitivity Troponin I Instructions For Use, [employer], November 2017) Performed By: #### 1 [id number] ####[facility] [address] [place] [address] Troponin 6 Hr.on 11-25-2022 Troponin I.cardiac [Mass/Vol] 8.60 pg/mL Low 10.10-27.1 0 [facility] Comment on above: Order Comment: Order added by Discern Expert. Result Comment: The 95% CI (Confidence Interval) PPV (Positive Predictive Value) for myocardial infarction in females is 38 pg/mL, in males 51 pg/mL. The results should be used in conjunction with clinical conditions of myocardial infarction. (Access High Sensitivity Troponin I Instructions For Use, [employer], November 2017) Performed By: #### 2 745742, 39043092, 29648166, 5254485, 4758851, 97876160 #### [facility] [address] [place] [address] XR Chest Single Viewon 11-25 XR Chest Single View Exam Date/Time: 11/25/2022 15:47 EDT Reason for Exam: Chest pain Report IMPRESSION: NO ACUTE CARDIOPULMONARY DISEASE. CLINICAL HISTORY: Chest pain COMPARISON: May 31, 2015 FINDINGS: Osseous structures intact. Cardiopericardial silhouette normal. Pulmonary vasculature normal. Lungs clear. Ordering Provider: Nelson Casillas FINAL REPORT Dictated: 11/25/2022 4:22 pm Steve Talbert MD Signed (Electronic Signature): 11/25/2022 4:22 pm Signed by: Steve Talbert MD Transcribed by: BEATRICE Technologist: RONA Technical Comments Radiation Dose: Ka,r in mGy = na DAP = na Normal [facility] eGFRon 11-25-2022 GFR/1.73 sq M.predicted among non-blacks MDRD (S/P/Bld) [Vol rate/Area] 91 mL/min/1.73 m2 Normal >=59 [facility] Comment on above: Order Comment: Order added by Discern Expert. Result Comment: [employer] [place] kidney disease could be indicated at eGFR's of less than 60 mL/min/1.73m2. Kidney failure is indicated at less than 15 mL/min/1.73m2. Performed By: #### 2 [id number], 04145840, 02122768, 5245107, 9187831, 71886258 #### [facility] [address] [place] [address] CHEMISTRYOrdered By: SYSTEM SYSTEM on 08-17-2022 Anion gap [Moles/Vol] 8 mmol/L Normal 6 - 16 mEq/L [facility] Calcium [Mass/Vol] 8.8 mg/dL Low 8.9 - 11. 1 mg/dL [facility] Chloride [Moles/Vol] 104 mmol/L Normal 101 - 1 11 mmol/L [facility] CO2 [Moles/Vol] 28 mmol/L Normal 21 - 31 mmol/L [facility] Creatinine [Mass/Vol] 0.8 mg/dL Normal 0.5 - 1.3 mg/dL [facility] GFR/1.73 sq M.predicted among non-blacks MDRD (S/P/Bld) [Vol rate/Area] 78 mL/min/1.73 m2 Normal >=59mL/min /1.73 m2 FT Chem S Glucose [Mass/Vol] 162 mg/dL Normal 55 - 199 mg/dL [facility] Potassium [Moles/Vol] 4.1 mmol/L Normal 3.5 - 5.3 mmol/L [facility] Sodium [Moles/Vol] 136 mmol/L Normal 135 - 145 mmol/L [facility] Urea nitrogen [Mass/Vol] 17 mg/dL Normal 5 - 21 mg/dL [facility] Urea nitrogen/Creatinine [Mass ratio] 21 mg/mg High 10 - 20 [facility] HEMATOLOGYOrdered By: SYSTEM SYSTEM on 08-17-2022 Basophils/100 WBC (Bld) 0.1 % Normal 0.0 - 2.0 % [facility] Basophils/Leukocytes Auto (Bld) [Pure # fraction] 0.0 E9/L Normal 0.0 - 0.2 E9/L [facility] Eosinophils/100 WBC (Bld) 0.0 % Normal 0.0 - 8.0 % [facility] Eosinophils/Leukocytes Auto (Bld) [Pure # fraction] 0.0 E9/L Normal 0.0 - 0.5 E9/L [facility] Lymphocytes/100 WBC (Bld) 8.1 % Low 14.0 - 50.0 % [facility] Lymphocytes/Leukocytes Auto (Bld) [Pure # fraction] 1.0 E9/L Normal 1.0 - 4.0 E9/L [facility] Monocytes/100 WBC (Bld) 4.1 % Normal 4.0 - 14.0 % [facility] Monocytes/Leukocytes Auto (Bld) [Pure # fraction] 0.5 E9/L Normal 0.2 - 1.0 E9/L [facility] Neutrophils/100 WBC (Bld) 87.7 % High 36.0 - 75.0 % [facility] Neutrophils/Leukocytes Auto (Bld) [Pure # fraction] 10.5 E9/L High 2.0 - 7.5 E9/L [facility] HEMATOLOGYOrdered By: Hemalatha Pascual on 08-17-2022 Erythrocyte distribution width (RBC) [Ratio] 14.3 % High 10.9 - 14.2 % [facility] Hematocrit (Bld) [Volume fraction] 39.3 % Normal 34.0 - 46.0 % [facility] Hemoglobin (Bld) [Mass/Vol] 13.2 g/dL Normal 12.0 - 16.0 gm/dL [facility] MCH (RBC) [Entitic mass] 32.3 pg Normal 27.0 - 34.0 pg [facility] MCHC (RBC) [Mass/Vol] 33.4 g/dL Normal 31.4 - 36.0 gm/dL [facility] MCV (RBC) [Entitic vol] 96.7 fL Normal 80.0 - 100.0 fL [facility] Platelet mean volume (Bld) [Entitic vol] 8.3 fL Normal 6.4 - 10.8 fL [facility] Platelets (Bld) [#/Vol] 244.0 E9/L Normal 150.0 - 500.0 E9/L [facility] RBC (Bld) [#/Vol] 4.1 E12/L Low 4.3 - 5.9 E12/L [facility] WBC corrected for nucl RBC Auto (Bld) [#/Vol] 11.9 E9/L High 4.0 - 11.0 E9/L [facility] COAGULATIONOrdered By: Yoan Lala on 08-16-2022 aPTT Coag (PPP) [Time] 28.5 s Normal 25.1 - 36.5 second(s) [facility] Auto Coag INR Coag (PPP) [Relative time] 1.1 {INR} Invalid Interpretation Code [facility] Auto Coag PT Coag (PPP) [Time] 11.9 s Normal 9.4 - 1 2.5 second(s) [facility] Auto Coag CHEMISTRYOrdered By: SYSTEM SYSTEM on 08-15-2022 Troponin I.cardiac [Mass/Vol] 6.30 pg/mL Low 10.10 - 27.10 pg/mL [facility] Troponin I.cardiac [Mass/Vol] 6.00 pg/mL Low 10.10 - 27.10 pg/mL [facility] Troponin I.cardiac [Mass/Vol] 5.00 pg/mL Low 10.10 - 27.10 pg/mL [facility] Anion gap [Moles/Vol] 13 mmol/L Normal 6 - 16 mEq/L [facility] Calcium [Mass/Vol] 8.8 mg/dL Low 8.9 - 11. 1 mg/dL [facility] Chloride [Moles/Vol] 100 mmol/L Low 101 - 1 11 mmol/L [facility] CO2 [Moles/Vol] 24 mmol/L Normal 21 - 31 mmol/L [facility] Glucose [Mass/Vol] 109 mg/dL Normal 55 - 199 mg/dL [facility] Lactate [Mass/Vol] 1.1 mmol/L Normal 0.5 - 2.2 mmol/L [facility] Lipase [Catalytic activity/Vol] 26 U/L Normal 13 - 58 unit/L [facility] Potassium [Moles/Vol] 3.5 mmol/L Normal 3.5 - 5.3 mmol/L [facility] Procalcitonin 0.11 ng/mL Normal 0.00 - 0.50 ng/mL [facility] Sodium [Moles/Vol] 133 mmol/L Low 135 - 145 mmol/L [facility] CHEMISTRYOrdered By: Pau Ward on 08-15-2022 Albumin [Mass/Vol] 3.6 g/dL Normal 3.3 - 5.0 gm/dL [facility] Albumin/Globulin [Mass ratio] 1.2 {ratio} Normal 1.1 - 2.2 [facility] ALP [Catalytic activity/Vol] 73 [iU]/d Normal 21 - 98 Int._Unit/ L [facility] ALT No additional P-5'-P [Catalytic activity/Vol] 17 [iU]/d Normal 6 - 46 Int._Unit/ L [facility] AST [Catalytic activity/Vol] 41 [iU]/d Normal 5 - 43 Int._Unit/ L [facility] Bilirubin [Mass/Vol] 0.7 mg/dL Normal 0.0 - 1 .1 mg/dL [facility] Bilirubin.direct [Mass/Vol] 0.2 mg/dL Normal 0.1 - 0.4 mg/dL [facility] Remisol Bilirubin.indirect [Mass or moles/Vol] 0.5 mg/dL Normal 0.1 - 0.9 mg/dL [facility] Creatinine [Mass/Vol] 0.9 mg/dL Normal 0.5 - 1.3 mg/dL [facility] Remisol Globulin (S) [Mass/Vol] 3.0 g/dL Normal 1.4 - 4.0 gm/dL [facility] Protein [Mass/Vol] 6.6 g/dL Normal 6.0 - 7.8 gm/dL [facility] Urea nitrogen [Mass/Vol] 11 mg/dL Normal 5 - 21 mg/dL [facility] Remisol Urea nitrogen/Creatinine [Mass ratio] 12 mg/mg Normal 10 - 20 [facility] Remisol CHEMISTRYOrdered By: Natalio Hand on 08-15-2022 GFR/1.73 sq M.predicted among non-blacks MDRD (S/P/Bld) [Vol rate/Area] 68 mL/min/1.73 m2 Normal >=59mL/min /1.73 m2 [facility] Chem S CHEMISTRYOrdered By: Felicia Robb on 08-15-2022 Natriuretic peptide B (Bld) [Mass/Vol] 17 pg/mL Normal 5 - 80 pg/mL [facility] HemeManSS COAGULATIONOrdered By: Linette Ward on 08-15-2022 aPTT Coag (PPP) [Time] 32.2 s Normal 25.1 - 36.5 second(s) [facility] Auto Coag INR Coag (PPP) [Relative time] 1.1 {INR} Invalid Interpretation Code [facility] Auto Coag PT Coag (PPP) [Time] 11.9 s Normal 9.4 - 1 2.5 second(s) [facility] Auto Coag FT Blood GasesOrdered By: Andrae Garcia on 08-15-2022 a/A Ratio Art 60.60 % Normal >=0.80% [facility] Resp Auto SS AaDO2 Art 41.4 mm[Hg] High 5.0 - 15.0 mmHg [facility] Resp Auto SS Allens Test Positive (08/15/22 11:47 AM) Normal [facility] Resp Auto SS Base Excess Arterial 0.5 mmol/L Low >=2.8mm ol/ L FT Resp Auto SS cCa2+ Art 4.76 mg/dL Normal 4.40 - 5.30 mg/dL FT Resp Auto SS cCl- Art 102.0 mmol/L Normal 101.0 - 111.0 mmol/L [facility] Resp Auto SS cGlu Art 106 mg/dL High 55 - 99 mg/dL FT Resp Auto SS cK+ Art 3.7 mmol/L Normal 3.5 - 5.3 mmol/L [facility] Resp Auto SS cLac Art 0.8 mmol/L Normal 0.5 - 2.2 mmol/L [facility] Resp Auto SS mini baccarat dealer+ Art 135.0 mmol/L Normal 135.0 - 145.0 mmol/L [facility] Resp Auto SS Drawn by TG Invalid Interpretation Code [facility] Resp Auto SS FCOHb Art 1.0 % Low 1.5 - 4.9 % [facility] Resp Auto SS FIO2 BG 21.0 Invalid Interpretation Code [facility] Resp Auto SS FMetHb Art 0.3 % Normal 0.0 - 1.9 % [facility] Resp Auto SS FO2Hb Art 93.0 % Normal 92.0 - 100.0 % [facility] Resp Auto SS HCO3 (Bld) [Moles/Vol] 24.8 mmol/L Normal 22.0 - 26.0 mmol/L [facility] Resp Auto SS Hemoglobin (Bld) [Mass/Vol] 12.8 g/dL Normal 12.0 - 16.0 gm/dL [facility] Resp Auto SS P CO2 Arterial 36.7 mm[Hg] Normal 35.0 - 45.0 mmHg [facility] Resp Auto SS P O2 Arterial 63.7 mm[Hg] Low 80.0 - 100.0 mmHg [facility] Resp Auto SS pH Arterial 7.434 Normal 7.350 - 7.450 [facility] Resp Auto SS Sample Site R Radial (08/15/22 11:47 AM) Normal [facility] Resp Auto SS Sample Type Arterial Draw (08/15/22 11:47 AM) Normal [facility] Resp Auto SS HEMATOLOGYOrdered By: SYSTEM SYSTEM on 08-15-2022 Basophils/100 WBC (Bld) 0.4 % Normal 0.0 - 2.0 % [facility] HemeAutoSS Basophils/Leukocytes Auto (Bld) [Pure # fraction] 0.0 E9/L Normal 0.0 - 0.2 E9/L [facility] Eosinophils/100 WBC (Bld) 0.2 % Normal 0.0 - 8.0 % [facility] Eosinophils/Leukocytes Auto (Bld) [Pure # fraction] 0.0 E9/L Normal 0.0 - 0.5 E9/L [facility] Lymphocytes/100 WBC (Bld) 13.8 % Low 14.0 - 50.0 % [facility] Lymphocytes/Leukocytes Auto (Bld) [Pure # fraction] 1.1 E9/L Normal 1.0 - 4.0 E9/L [facility] Monocytes/100 WBC (Bld) 9.4 % Normal 4.0 - 14.0 % [facility] Monocytes/Leukocytes Auto (Bld) [Pure # fraction] 0.8 E9/L Normal 0.2 - 1.0 E9/L [facility] Neutrophils/100 WBC (Bld) 76.2 % High 36.0 - 75.0 % [facility] Neutrophils/Leukocytes Auto (Bld) [Pure # fraction] 6.2 E9/L Normal 2.0 - 7.5 E9/L [facility] HEMATOLOGYOrdered By: Neil Gallagher on 08-15-2022 Erythrocyte distribution width (RBC) [Ratio] 14.1 % Normal 10.9 - 14.2 % [facility] Hematocrit (Bld) [Volume fraction] 39.6 % Normal 34.0 - 46.0 % [facility] Hemoglobin (Bld) [Mass/Vol] 12.9 g/dL Normal 12.0 - 16.0 gm/dL [facility] MCH (RBC) [Entitic mass] 30.8 pg Normal 27.0 - 34.0 pg [facility] MCHC (RBC) [Mass/Vol] 32.5 g/dL Normal 31.4 - 36.0 gm/dL [facility] MCV (RBC) [Entitic vol] 94.5 fL Normal 80.0 - 100.0 fL [facility] Platelet mean volume (Bld) [Entitic vol] 7.9 fL Normal 6.4 - 10.8 fL [facility] Platelets (Bld) [#/Vol] 218.0 E9/L Normal 150.0 - 500.0 E9/L [facility] RBC (Bld) [#/Vol] 4.2 E12/L Low 4.3 - 5.9 E12/L [facility] HemeAutoSS WBC corrected for nucl RBC Auto (Bld) [#/Vol] 8.1 E9/L Normal 4.0 - 11.0 E9/L [facility] Heme[facility] Laboratory - Microbiology an d Antimicrobial susceptibilityOrdered By: Debra Sykes on 08-15-2022 Bacteria identified Respiratory culture Nom (Sput) 1+ Normal upper respiratory reji isolated [facility] MICRO OTHER TESTSOrdered By: Pau Ward on 08-15-2022 Rapid COV Int NEG Ctl Pass (08/15/22 11:57 AM) Normal [facility] Man Sero Rapid COV Int POS Ctl Pass (08/15/22 11:57 AM) Normal [facility] Man Sero SARS-CoV+SARS-CoV-2 (COVID-19) Ag IA.rapid Ql (Resp) Not Detected (08/15/22 11:57 AM) Normal Not Detected [facility] Man Sero No Panel InformationOrdered By: Debra Sykes on 08-15-2022 GS 3+ White Blood Cells Occasional Gram Positive Cocci [facility] No Panel InformationOrdered By: ANGPROCESSSERVER MICROBIOLOGY on 08-15-2022 Blood Culture Charcoal No growth at 3 da ys. Final to follow at 7 days. [facility] Blood Culture Charcoal No growth at 3 da ys. Final to follow at 7 days. [facility] URINALYSISOrdered By: Wang Ward on 08-15-2022 Bilirubin Ql (U) Negative (08/15/22 5:10 PM) Normal Negative [facility] UA Auto SS Clarity (U) Clear (08/15/22 5:10 PM) Normal Clear [facility] UA Auto SS Color (U) Yellow (08/15/22 5:10 PM) Normal Yellow [facility] UA Auto SS Epithelial cells.squamous LM.HPF (Urine sed) [#/Area] 0-2 /HPF Normal 0-2/HPF [facility] UA Aut o SS Glucose Test strip (U) [Mass/Vol] Negative (08/15/22 5:10 PM) Normal Negative [facility] UA Auto SS Hemoglobin Ql (U) 3+ *ABN* (08/15/22 5:10 PM) Invalid Interpretation Code Negative [facility] UA Auto SS Ketones (U) [Mass/Vol] Negative (08/15/22 5:10 PM) Normal Negative FT UA Auto SS Alto.plasma/Alto .RBC (Bld) [Mass ratio] 0-3 /HPF Normal 0-3/HPF [facility]A Auto SS Nitrite Ql (U) Negative (08/15/22 5:10 PM) Normal Negative [facility] UA Auto SS pH (U) 5.5 *NA* (08/15/22 5:10 PM) Invalid Interpretation Code 5.0 - 9.0 [facility] UA Auto SS Protein (U) [Mass/Vol] Negative (08/15/22 5:10 PM) Normal Negative [facility] UA Auto SS Specific gravity (U) [Rel density] 1.010 *NA* (08/15/22 5:10 PM) Invalid Interpretation Code 1.005 - 1.030 [facility] UA Auto SS UA Spec Desc Clean Catch (08/15/22 5:10 PM) Normal FT UA Auto SS Urobilinogen Qn (U) 0.5140910 {Gilma'U}/dL Normal 0.0 - 1.0 EU/dL [facility] UA Auto SS WBC Auto Ql (U) Negative (08/15/22 5:10 PM) Normal Negative [facility]A Auto SS WBC LM.HPF (Urine sed) [#/Area] 0-5 /HPF Normal 0-5/HPF [facility] UA Auto SS STR cardiac stress/lexiscano n 04-20-2022 STR cardiac stress/lexiscan [facility] [employer] Other STR cardiac stress/lexiscan [facility] [employer] Other STR cardiac stress/lexiscan [address] [facility] [employer] Other STR cardiac stress/lexiscan [address] [employer] Other STR cardiac stress/lexiscan Cardiac Stress Test [facility] [employer] Other STR cardiac stress/lexiscan Signed [facility] [employer] Other STR cardiac stress/lexiscan Patient: Nicole Lomeli MR#: [id number] [facility] [employer] Other STR cardiac stress/lexiscan [id number] [employer] Other STR cardiac stress/lexiscan : 1950 Acct:[id number] [employer] Other STR cardiac stress/lexiscan Age/Sex: 71 / F ADM Date: 04/19/22 [employer] Other STR cardiac stress/lexiscan Loc: OR Room: Type: [facility] [employer] Other STR cardiac stress/lexiscan Attending Dr: Parris Guzman [employer] Other STR cardiac stress/lexiscan Copies to: Chelsey Rader MD, [facility] [employer] Other STR cardiac stress/lexiscan Parris Guzman[employer] Other STR cardiac stress/lexiscan Ordering Provider: Parris Guzman DO [employer] Other STR cardiac stress/lexiscan Date of Service: 04/19/22 [employer] Other STR cardiac stress/lexiscan STR/STR cardiac stress/lexiscan: Dyspnea on exertion;Exercise-induced [employer] Other STR cardiac stress/lexiscan tachycardia [employer] Other STR cardiac stress/lexiscan ORDERED BY: Parris Guzman DO [employer] Other STR cardiac stress/lexiscan A 71-year-old patient with chest pain. [employer] Other STR cardiac stress/lexiscan Resting ECG revealed normal sinus rhythm, heart rate 75 beats per minute. Resting blood pressure [employer] Other STR cardiac stress/lexiscan 162/99. [employer] Other STR cardiac stress/lexiscan Following intravenous administration of 400 mcg of Lexiscan over 10 seconds, no ischemic EKG changes [employer] Other STR cardiac stress/lexiscan were noted. The patient had no chest pain and no cardiac arrhythmias were seen. Cardiolite study [employer] Other STR cardiac stress/lexiscan followed. [employer] Other STR cardiac stress/lexiscan CONCLUSION: [employer] Other STR cardiac stress/lexiscan 1. No Lexiscan-induced ischemic EKG changes, chest pain or cardiac arrhythmias. [employer] Other STR cardiac stress/lexiscan 2. Cardiolite studies to be reported separately by nuclear cardiology. [employer] Other STR cardiac stress/lexiscan Transcribed By: NTS 04/20/22 1413 [employer] Other STR cardiac stress/lexiscan Dictated By: Chelsey Rader MD, [facility] 04/20/22 1128 [employer] Other STR cardiac stress/lexiscan Signed By: [employer] Other STR cardiac stress/lexiscan 04/21/22 1144 [employer] Other COVID-19 Positive/NegativeOr dered By: Sangeetha Mares on 12-25-2021 SARS-CoV-2 (COVID-19) N gene SNEHA+probe Ql (Resp) Negative Negative [facility] Comment on above: Testing for SARS-CoV -2 by RT-PCR This test was developed and its performance characteristics determined by [employer] and validated at the [facility]. This test has not been FDA cleared or approved. This test has been authorized by FDA under an Emergency Use Authorization (EUA). This test has been validated in accordance with the FDA's Guidance Document (Policy for Diagnostics Testing in Laboratories Certified to Perform High Complexity Testing under CLIA prior to Emergency Use Authorization for Coronavirus Disease-2019 during the Public Health Emergency) issued on July 09, 2019. This test is only authorized for the duration of time the declaration that circumstances exist justifying the authorization of the emergency use of in vitro diagnostic tests for detection of SARS-CoV-2 virus and/or diagnosis of COVID-19 infection under section 564(b)(1) of the Act, 21 U.S.C. 360bbb-3(b)(1), unless the authorization is terminated or revoked sooner. Activated partial thrombopla stin time (aPTT) in platelet poor plasma by coagulation aOrdered By: Sangeetha Mares on 11-08-2021 aPTT Coag (PPP) [Time] 33.3 s 25.1-36.5 [facility] Basophils Auto (Bld) [#/Vol] Ordered By: Sangeetha Mares on 11-08-2021 Basophils (Bld) [#/Vol] 0.0 10*3/uL 0.0-0.2 [facility] Basophils/100 WBC Auto (Bld) Ordered By: Sangeetha Mares on 11-08-2021 Basophils/100 WBC (Bld) 0.3 % . [facility] Blood hemoglobin measurement (mass/volume)Ordered By: Sangeetha Mares on 11-08-2021 Hemoglobin (Bld) [Mass/Vol] 13.5 g/dL 11.8-15.4 [facility] Blood leukocytes automated c ount (number/volume)Ordered By: Sangeetha Mares on 11-08-2021 WBC (Bld) [#/Vol] 7.7 10*3/uL 4.5-11.0 [facility] Creatinine and Glomerular fi ltration rate.predicted panel (S/P/Bld)Ordered By: Sangeetha Mares on 11-08-2021 Creatinine [Mass/Vol] 0.80 mg/dL 0.44-1.03 [facility] Eosinophils Auto (Bld) [#/Vo l]Ordered By: Sangeetha Mares on 11-08-2021 Eosinophils (Bld) [#/Vol] 0.1 10*3/uL 0.0-0.45 [facility] Eosinophils/100 WBC Auto (Bl d)Ordered By: Sangeetha Mares on 11-08-2021 Eosinophils/100 WBC (Bld) 1.7 % . [facility] Erythrocyte distribution wid th Auto (RBC) [Ratio]Ordered By: Sangeetha Mares on 11-08-2021 Erythrocyte distribution width (RBC) [Ratio] 13.7 % 11.9-15.3 [facility] Estimated glomerular filtrat ion rate (GFR) non- AmericanOrdered By: Sangeetha Mares on 11-08-2021 GFR/1.73 sq M.predicted among non-blacks MDRD (S/P/Bld) [Vol rate/Area] > 60 mL/Min [facility] Hematocrit Auto (Bld) [Volum e fraction]Ordered By: Sangeetha Mares on 11-08-2021 Hematocrit (Bld) [Volume fraction] 39.6 % 34.0-46.4 [facility] Laboratory - CoagulationOrde red By: Sangeetha Mares on 11-08-2021 PT Coag (PPP) [Time] 11.3 s 9.0-12.9 [facility] - Hematology and Cell countsOrdered By: Sangeetha Mares on 11-08-2021 Nucleated RBC/100 WBC (Bld) [Ratio] 0.1 % 0-0.5 [facility] Lymphocytes Auto (Bld) [#/Vo l]Ordered By: Sangeetha Mares on 11-08-2021 Lymphocytes (Bld) [#/Vol] 1.8 10*3/uL 1.00-4.8 [facility] Lymphocytes/100 WBC Auto (Bl d)Ordered By: Sangeetha Mares on 11-08-2021 Lymphocytes/100 WBC (Bld) 22.9 % . [facility] MCH Auto (RBC) [Entitic mass ]Ordered By: Sangeetha Mares on 11-08-2021 MCH (RBC) [Entitic mass] 32.9 pg 24.7-34.3 [facility] MCHC Auto (RBC) [Mass/Vol]Or dered By: Sangeetha Mares on 11-08-2021 MCHC (RBC) [Mass/Vol] 34.0 g/dL 32.0-35.0 [facility] MCV Auto (RBC) [Entitic vol] Ordered By: Sangeetha Mares on 11-08-2021 MCV (RBC) [Entitic vol] 96.8 fL 80-100 [facility] Monocytes Auto (Bld) [#/Vol] Ordered By: Sangeetha Mares on 11-08-2021 Monocytes (Bld) [#/Vol] 0.5 10*3/uL 0.0-0.8 [facility] Monocytes/100 WBC Auto (Bld) Ordered By: Sangeetha Mares on 11-08-2021 Monocytes/100 WBC (Bld) 6.8 % . [facility] Neutrophils Auto (Bld) [#/Vo l]Ordered By: Sangeetha Mares on 11-08-2021 Neutrophils (Bld) [#/Vol] 5.2 10*3/uL 1.8-7.7 [facility] Neutrophils/100 WBC Auto (Bl d)Ordered By: Sangeetha Mares on 11-08-2021 Neutrophils/100 WBC (Bld) 68.3 % . [facility] No Panel InformationOrdered By: Sangeetha Mares on 11-08-2021 Estimated GFR () > 60 mL/Min [facility] Comment on above: GFR estimated refere nce range: According to KDOQI guidelines, <60 ml/min/1.73m2 is sufficient to diagnose a patient with chronic kidney disease. Pharmacy Creatinine Clearance (Chem N/A [facility] Platelet mean volume Auto (B ld) [Entitic vol]Ordered By: Sangeetha Mares on 11-08-2021 Platelet mean volume (Bld) [Entitic vol] 8.3 fL 6.3-10.7 [facility] Platelet poor plasma interna tional normalized ratio (INR) by coagulation assay (relatOrdered By: Sangeetha Mares on 11-08-2021 INR Coag (PPP) [Relative time] 1.0 {INR} [facility] Comment on above: INR Therapeutic Rang e A) Pre- and Peroperative OAT started two weeks before surgery. NOT HIP SURGERY: 1.5 - 2.5 HIP SURGERY: 2 - 3 B) Primary and secondary prevention of venous THROMBOSIS: 2 - 3 C) Active venous thrombosis, pulmonary embolism and prevention of recurrent venous thrombosis: 2 - 3 D) Prevention of arterial thromboembolism including patients with mechanical heart valves: 3 - 4.5 Platelets Auto (Bld) [#/Vol] Ordered By: Sangeetha Mares on 11-08-2021 Platelets (Bld) [#/Vol] 258 10*3/uL 150-450 [facility] RBC Auto (Bld) [#/Vol]Ordere d By: Sangeetha Mares on 11-08-2021 RBC (Bld) [#/Vol] 4.09 10*6/uL 3.60-5.00 [facility] Serum or plasma calcium shamika urement (mass/volume)Ordered By: Sangeetha Mares on 11-08-2021 Calcium [Mass/Vol] 9.5 mg/dL 8.2-10.2 [facility] Serum or plasma chloride doide surement (moles/volume)Ordered By: Sangeetha Mares on 11-08-2021 Chloride [Moles/Vol] 102 mmol/L 95-114 [facility] Serum or plasma glucose shamika urement (mass/volume)Ordered By: Sangeetha Mares on 11-08-2021 Glucose [Mass/Vol] 148 mg/dL 70-100 [facility] Comment on above: ADA recommended refe rence range Random Glucose Reference Range is dependent on time and content of last meal. Glucose of more than 200 mg/dL in a nonstressed, ambulatory subject supports the diagnosis of Diabetes Mellitus. Serum or plasma potassium me asurement (moles/volume)Ordered By: Sangeetha Mares on 11-08-2021 Potassium [Moles/Vol] 4.4 mmol/L 3.5-5.1 [facility] Serum or plasma sodium measu rement (moles/volume)Ordered By: Sangeetha Mares on 11-08-2021 Sodium [Moles/Vol] 138 mmol/L 136-146 [facility] Serum or plasma total carbon dioxide measurement (moles/volume)Ordered By: Sangeetha Mares on 11-08-2021 CO2 [Moles/Vol] 26.6 mmol/L 22.0-30.0 [facility] Serum or plasma urea nitroge n measurement (mass/volume)Ordered By: Sangeetha Mares on 11-08-2021 Urea nitrogen [Mass/Vol] 8 mg/dL 12-29 [facility] Creatinine (Bld) [Mass/Vol]O rdered By: Parris Guzman on 09-28-2021 Creatinine [Mass/Vol] 0.8 mg/dL 0.6-1.3 [facility] Comment on above: ER/ESD physician is notified/shown all ISTAT results. Critical values may be confirmed by laboratory testing if deemed necessary by ER attending doctor. No Panel InformationOrdered By: Parris Guzman on 09-28-2021 POC Estimated GFR > 60 [facility] Comment on above: GFR estimated refere nce range: According to KDOQI guidelines, <60 ml/min/1.73m2 is sufficient to diagnose a patient with chronic kidney disease. POC Estimated GFR Non- Amer > 60 [facility] Urinalysis - AUTOMATEDon Appearance (U) pale yellow [employer] Other Bilirubin Ql (U) Negative [employer] Other Color (U) yellow [employer] Other Glucose Ql (U) Negative [employer] Other Hemoglobin Ql (U) moderate [employer] Other Ketones Ql (U) Negative [employer] Other Leukocyte esterase Test strip Ql (U) trace [employer] Other Nitrite Ql (U) Negative [employer] Other pH (U) 5.0 [pH] [employer] Other Protein Ql (U) Negative [employer] Other Specific gravity (U) [Rel density] 1.020 [employer] Other Urinalysis Gross Exam Positive [employer] Other Urobilinogen (U) [Mass/Vol] 0.2 mg/dL [place] [employer] Other Urinalysis - AUTOMATED No rt [employer] Other Anesthesia Noteon 12-11-2019 Anesthesia Note [facility] Patient: NICOLE LOMELI [address] [place] [address] MR#: [id number] ANESTHESIA NOTE : Service Date: 12/11/19 1323 Post-anesthesia Note Note Patient assessed post operatively for the following: [x ] Respiratory function, including respiratory rate, airway patency and oxygen saturation [x ] Cardiovascular function, including pulse rate and blood pressure [x ] Mental status [x ] Temperature [x ] Pain [x ] Nausea and vomiting [x ] Postoperative hydration [x ] No Visual Changes Due to the following condition(s) additional monitoring may be necessary: [ ] [x ] No apparent anesthesia complications noted. [x ] Status as per pre-op Electronically Signed eSign Date and Time MargaritaIsra castro YAJAIRA 12/11/19 1324 Baldo Mcgregor MD [facility] HGB AND HCTon 12-11-2019 Hematocrit (Bld) [Volume fraction] 29.1 % Low 36.0-48.0 [facility] Comment on above: Order Comment: Carlos s: MAIN Performed By: #### L [id number] ####Test performed at: [place] [address] Hemoglobin (Bld) [Mass/Vol] 11.9 g/dL Low 12.0-15.0 [facility] Comment on above: Order Comment: Segundou s: MAIN Performed By: #### L [id number] ####Test performed at: [place] [address] Internal Med Progress Noteon 12-11-2019 Internal Med Progress Note [facility] Patient: NICOLE LOMELI [address] [place] [address] MR#: [id number] PROGRESS NOTE - Internal Medicine : 48 Service Date: 12/11/19 0642 Subjective Primary Resident: Adán Trimble After Hours Call: [phone] Red Team Summary of Stay 69 yo F with PMHx of Anxiety, depression, COPD, GERD, Hx of TIA 2011, Migraine headache and Hx of cardiac normal cath 2011 is s/p L4-5 laminectomy and foraminotomy: POD 1 (DOS ) for lumbar stenosis. Currently being managed for post-op pain as per surgery and PT/OT on board for ambulation. Subjective Patient was comfortably ambulating in the corridors. Not in acute distress. Passed urine and gas. General Denies Chills, Denies Night sweats, Denies Fatigue, Denies Malaise HEENT Denies Head Aches, Denies Dysphasia Pulmonary Denies Dyspnea, Denies Cough, Denies Pleuritic Chest Pain Cardiovascular Denies Chest Pain, Denies Palpitations, Denies Orthnopnea, Denies Paroxysmal Noc. Dyspnea Gastrointestinal Denies Nausea, Denies Vomiting, Denies Abdominal Pain, Denies Diarrhea Genitourinary Denies Dysuria, Denies Frequency, Denies Incontinence Musculoskeletal Back Pain, Denies Neck Pain, Denies Shoulder Pain, Denies Arm Pain (Post-op mild pain) Neurological Denies Weakness, Denies Numbness, Denies Confusion Objective Exam Vitals and I/O Vital Signs Verdana 4d Result Date Time O2 Delivery ROOM AIR 12/10 0740 Pulse Ox 95 12/10 0645 B/P 118/58 12/10 0645 Temp 36.5 12/10 0645 Pulse 85 12/10 0645 Resp 18 12/10 0645 O2 Flow Rate 3.0 12/09 1915 Intake AND Output Verdana 4d 12/10 2300 12/09 2300 Intake Total 920 980 Output Total 210 340 Balance 710 640 Intake, IV 700 400 Oral 220 580 umber 2 2 ncontinent oids Output, 60 40 rainage Output, Urine 150 300 Patient 0 kg eight Weight PREADMISSION TESTING WGT easurement ethod General Appearance Alert, Oriented X3, Cooperative, Mild Distress HEENT Atraumatic, Mucous Membr. moist/pink Lungs Clear to Auscultation, Normal Air Movement Neck Supple, No JVD Cardiovascular Regular Rate, Normal S1, Normal S2, No Murmurs Abdomen Normal Bowel Sounds, Soft, No Tenderness Extremities No Edema, Normal Pulses Neurological Sensation Intact, Cranial Nerves 3-12 NL Psych/Mental Status Mental Status NL, Mood NL Assessment/Plan-Internal Med Med Reasons/Tx for Con't stay Post-op management Assessment #s/p L4-5 laminectomy and foraminotomy: POD 1 (DOS 12/10/19) - h/o lumbar stenosis - No acute distress - No B/L LE swelling or tenderness, pedal pulses present b/l - Hb 12.4 ->11.9, Hct 38.6 ->29.1 -Plan: * Pain and post-op management as per surgery * Ancef dose completed * Dexamethasone dc d * Ambien 5 mg qhs * Advice IS * PT/OT on board #HLD #h/o TIA -Fenofibrate 145 mg qhs -Plavix on hold #COPD -Breathing tx #Osteoporosis prevention -Raloxifene 60 mg daily #DVT prophylaxis -PCD s, rest as per Sx Be sure to note changes Be sure to note changes DVT Prophylaxis Amb *Attending Attestation Attending Attestation Attending Attestation All pertinent elements of history and physical exam were confirmed by me. Agree with above documentation. The [resident's, PA's, DIE OPERATOR's] assessment and plan reflect my input. Discussed with documenting provider and patient. Plan is as outlined above. Electronically Signed eSign Date and Time Abhinav Pearson RES, Donald E. MD 12/11/19 1309 [facility] OT Therapy Recommendationson 12-11-2019 OT Therapy Recommendations [facility] Patient: NICOLE LOMELI [address] [place] [address] MR#: [id number] OT THERAPY RECOMMENDATIONS : 48 Service Date: 12/11/19 1429 Therapy Recommendations Therapy Recommendations Recommendations O.T. eval completed, recommend pt d/c home with family assistance. No additional acute o.t. needs at this time. Electronically Signed eSign Date and Time Samantha Garcia OT 12/11/19 1430 [facility] Orthopedic Progress Noteon 0 12-11-2019 Orthopedic Progress Note [facility] Patient: NICOLE LOMELI [address] [place] [address] MR#: [id number] PROGRESS NOTE - Orthopedic : 48 Service Date: 12/11/19 1207 Subjective Summary of Stay pod #1 Rt L4-5 LFD with cyst removal Events since last encounter increased drainage Subjective The pain I had before surgery is gone. I have a little discomfort in my back at the incision General Denies Chills, Denies Night sweats, Denies Fatigue HEENT Denies Head Aches, Denies Visual Changes, Denies Dysphasia, Denies Sinus Congestion, Denies Post Nasal Drip, Denies Sore Throat Pulmonary Denies Dyspnea, Denies Cough Cardiovascular Denies Chest Pain, Denies Palpitations, Denies Edema Gastrointestinal Denies Nausea, Denies Vomiting, Denies Diarrhea, Denies Constipation Genitourinary Frequency, Incontinence, Denies Dysuria, Denies Retention Musculoskeletal Back Pain (incisional), Denies Neck Pain, Denies Shoulder Pain Neurological Denies Weakness, Denies Numbness, Denies Incoordination, Denies Confusion Objective Exam Vitals and I/O Vital Signs Verdana 4d Result Date Time O2 Delivery ROOM AIR 12/10 0740 Pulse Ox 95 12/10 0645 B/P 118/58 12/10 0645 Temp 36.5 12/10 0645 Pulse 85 12/10 0645 Resp 18 12/10 0645 O2 Flow Rate 3.0 12/09 1915 Intake AND Output Verdana 4d 12/10 2300 12/09 2300 Intake Total 1470 980 Output Total 480 340 Balance 990 640 Intake, IV 700 400 Oral 770 580 umber 4 2 ncontinent oids Output, 60 40 rainage Output, Urine 420 300 Patient 0 kg eight Weight PREADMISSION TESTING WGT easurement ethod General Appearance Alert, Oriented X3, Cooperative, No Acute Distress HEENT PERRLA, Mucous Membr. moist/pink Lungs Normal Air Movement Neck Supple Cardiovascular Regular Rate Abdomen Soft, No Tenderness, No Masses Extremities No Clubbing, No Edema, Normal Pulses, No Tenderness/Swelling Skin No Rashes, No Breakdown, No Significant Lesion Neurological Normal Gait, Normal Speech, Strength at 5/5 X4 Ext, Normal Tone, Sensation Intact Psych/Mental Status Mental Status NL, Mood NL Other Physical Findings Pt in bed with lower back dressing with drain incorporated. Drain will remain at this time and pt will dc home with this. Pt state before surgery had lower back pain down both legs. Pt denies this pain post op Pt up and ambulate with wheeled walker with slow steady gait . Pt state has rolator at home and practice with this as well. Adequate pain control with oral pain medication UIS to 1500 SCD while in bed Homegoing instructions given with good understanding. QUestions answered to pt satisfaction Dr West aware Results Results All Laboratory Tests 12/10 0610 Chemistry Sodium (136 - 145 mmol/L) 139 Potassium (3.5 - 5.1 mmol/L) 4.3 Chloride (98 - 107 mmol/L) 108 Carbon Dioxide (21 - 32 mmol/L) 28 BUN (7 - 18 mg/dL) 6 mg/dL) 0.807 Est GFR ( Amer) (> 60) > 60 Est GFR (Non-Af Amer) (> 60) > 60 Glucose (70 - 99 mg/dL) 179 Hematology Hgb (12.0 - 15.0 g/dL) 11.9 Hct (36.0 - 48.0 %) 29.1 Assessment and Plan - ICD10 Problem List 1. Pre-op evaluation 2. History of TIA (transient ischemic attack) 3. Hyperlipidemia 4. COPD (chronic obstructive pulmonary disease) 5. Status post lumbar spine surgery for decompression of spinal cord Med Reasons/Tx for Con't stay dc home with drain Assessment plan dc home with drain mobilize pain medication is dvt prophilaxis Electronically Signed eSign Date and Time SORAYASANGEETHA 12/11/19 1217 Bob West MD [facility] PT Therapy Recommendationson 12-11-2019 aPTT Coag (Drud) [Time] [facility] Patient: NICOLE LOMELI [address] [place] [address] MR#: [id number] PT THERAPY RECOMMENDATIONS : 48 Service Date: 12/11/19 1224 Therapy Recommendations Therapy Recommendations Recommendations PT EVAL. COMPLETED. DC RECOMMENDATION: EVENTUAL HOME PT OR OUTPATIENT PT SERVICES WITH PHYSICIAN CONSENT. PATIENT WOULD LIKE TO BE ABLE TO AMBULATE WITHOUT A.D. Electronically Signed eSign Date and Time Elmira Marquez PT 12/11/19 1226 [facility] Transfer From ([facility])on 12-11-2019 Transfer From ([facility]) From: [facility] Patient: NICOLE LOMELI [address] [place] [address] Birthdate: [birth year] Age: 69 Attending Physician: Bob West MD Sex: Female Primary Care: Bob Iqbal DO Admit Date: D/C date: 12/11/19 Transfer Form (Phys Orders) Medical Information See Information Please do the discharge medication reconciliation first and then start the Transfer Form Disposition Home Health Care Problem List Medical Problems COPD (chronic obstructive pulmonary disease) History of TIA (transient ischemic attack) Hyperlipidemia Lumbar stenosis Pre-op evaluation Surgical Problems Status post lumbar spine surgery for decompression of spinal cord Surgeries l4-5 lfd with cyst removal Allergies Coded Allergies: NO KNOWN DRUG ALLERGIES (12/10/19) Code Status FULL CODE Patient In Isolation: No RESISTANT ORGANISM No Date of Influenza Vaccine 2018 Date of Pneumonia Vaccine Physician Orders Prescriptions/Discharge Meds Stop taking the following medications: oxyCODONE HCl 5mg AND Acetaminophen 325mg (Percocet 5mg/325mg Tablet*) 1 EACH TABLET ORAL EVERY 12 HOURS NEEDED as needed for Moderate Pain Qty = 14 Continue taking these medications: Simvastatin * (Zocor *) 40 MG TABLET 40 MILLIGRAM ORAL AT BEDTIME Comments: TAKE TONIGHT Zolpidem Tartrate * (Ambien 5mg Tablet*) 5 MG TABLET 5 MILLIGRAM ORAL AT BEDTIME Qty = 30 Comments: TAKE 1 TABLET BY MOUTH ONCE DAILY AT BEDTIME FOR 30 DAYS - SIG Obtained From [facility] Oxybutynin Chloride* (Ditropan*) 5 MG TABLET 5 MILLIGRAM ORAL EVERY DAY Qty = 90 Comments: TAKE 1 TABLET BY MOUTH ONCE DAILY FOR 90 DAYS - SIG Obtained From [facility] Raloxifene HCl (Raloxifene HCl) 60 MG TABLET 60 MILLIGRAM ORAL EVERY DAY Qty = 0 Comments: TAKE TODAY Ergocalciferol (Vitamin D2) * (Vitamin D2 *) 1,250 MCG (50,000 UNIT) CAPSULE 1,250 MICROGRAM ORAL Every 7 Days Qty = 0 Comments: RESUME HOME SCHEDULE tiZANidine HCl * (Zanaflex *) 4 MG TABLET 4 MILLIGRAM ORAL THREE TIMES DAILY NEEDED as needed for muscle spasm Qty = 90 Comments: TAKE 1 TABLET BY MOUTH THREE TIMES DAILY NEEDED FOR 30 DAYS - SIG Obtained From [facility] Ipratropium/Albuterol MDI * (Combivent RESPIMAT MDI *) 4 GM INHALER 1 PUFFS INHALATION 4 TIMES A DAY as needed for sob/copd Qty = 0 Comments: NEXT DOSE 2 PM Start taking the following new medications: oxyCODONE HCl 5mg AND Acetaminophen 325mg * (Percocet 5mg/325mg Tablet *) 1 EACH TABLET 1 UD TABLET ORAL EVERY 4-6 HRS PRN as needed for post-operative pain Days = 7 Qty = 40 No Refills Cephalexin Monohydrate* (Keflex 500MG Capsule*) 500 MG UDCAP 500 MILLIGRAM ORAL 2 TIMES DAILY Days = 7 Qty = 14 No Refills The following medications have been changed: Old: Clopidogrel Bisulfate * (Plavix *) 75 MILLIGRAM ORAL EVERY DAY Qty = 45 New: Clopidogrel Bisulfate * (Plavix *) 75 MG TABLET 75 MILLIGRAM ORAL EVERY DAY Qty = 45 Instructions: Start saturday Comments: TAKE 1 TABLET BY MOUTH EVERY OTHER DAY - SIG Obtained From [facility] Old: Fluoxetine HCl 40 MILLIGRAM ORAL EVERY DAY Qty = 90 New: Fluoxetine HCl (Fluoxetine HCl) 40 MG CAPSULE 40 MILLIGRAM ORAL EVERY DAY Qty = 90 Instructions: TAKE TOMORROW Comments: TAKE 1 CAPSULE BY MOUTH ONCE DAILY IN THE MORNING - SIG Obtained From [facility] Old: Fenofibrate, Micronized * (Tricor *) 145 MILLIGRAM ORAL AT BEDTIME Qty = 90 New: Fenofibrate, Micronized * (Tricor *) 145 MG TABLET 145 MILLIGRAM ORAL AT BEDTIME Qty = 90 Instructions: TAKE TONIGHT Comments: TAKE 1 TABLET BY MOUTH ONCE DAILY - SIG Obtained From [facility] Physical Therapy 5x/week Weight Bearing Status Full weight bearing Occupational Therapy 3x/week Speech Therapy No Wound Care Lower back dressing with drain incorporated. Monitor drainage bid Respiratory Therapy Orders: Vent Settings: Vent/Wean Mode: PSV: Tidal Volume: PEEP: Vent Resp Rate: CPAP: Vent %FIO2: Diet REGULAR Additional Orders NO bending, lifting or twisting UP for all meals Up and ambulate every 2 hrs Safety check ANkle pumps 100 times every hour Incentive spirotmer 10 times every hour EMPTY DRAIN BID Certify/Acknowledge Prognosis Good Rehab Potential Improve Certify/Acknowledge I certify that in-patient care is required at: [ ] Skilled level [ ] Intermediate level Expected length of stay: [ ] < 30 Days [ ] 31-180 Days [ ] >181 Days To the best of my knowledge, all information provided is a true and accurate reflection of the individuals condition. HOME WITH [facility] Electronically Signed eSign Date and Time SORAYAJOSESANGEETHA 12/28/19 1213 Bob West MD [facility] z OT Inpatient Discharge Not norberto 12-11-2019 z OT Inpatient Discharge Note [facility] Patient: NICOLE LOMELI [address] [place] [address] MR#: [id number] OT INPATIENT DISCHARGE NOTE : 48 Service Date: 12/11/19 1437 z OT HPI Discharge Note Total number of visits 1 Date of Discharge 12/11/19 Start of Care Date 12/11/19 z OT Inpatient AP Discharge DC Recommendations Home-No Home Health Care OT Status: DISCHARGED Electronically Signed eSign Date and Time Samantha Garcia OT 12/11/19 1437 [facility] z OT Inpatient Evaluationon 12-11-2019 z OT Inpatient Evaluation [facility] Patient: NICOLE LOMELI [address] [place] [address] MR#: [id number] OT INPATIENT EVALUATION : 48 See Addendum Mario 4d Inpatient OT HPI Date of Service 12/11/19 Time In: 1115 Time Out: 1140 Total Treatment Time (Mins) 25 Visit Reason LUMBAR STENOSIS Surgery Type/Date Right L4-5 laminectomy, foraminotomy, decompression /c cyst removal 12/10/19 Referral Date 12/10/19 Tx Diagnosis: LOW BACK PAIN Insurance Name MEDICARE Hospital Course 69 yo admitted for above surgery. Received referral for eval and treat, up ad portia with assistance, encourage ambulation, brace oor, log roll and lumbar precautions. Pt supine, agreeable to therapy. Past Medical/Social History Problem List Medical Problems COPD (chronic obstructive pulmonary disease) History of TIA (transient ischemic attack) Hyperlipidemia Lumbar stenosis Pre-op evaluation Surgical Problems Status post lumbar spine surgery for decompression of spinal cord Living Arrangements Home Lives With Spouse Steps to Enter House 1 Stairs Inside House 0 Adaptive Equipment tri-rollator ADL Equipment Grab Bars Bedroom Location 1st Floor Bathroom Location 1st Floor Shower Tub Tasks Prior to Admission Laundry, Cooking, Cleaning, Shopping, Driving Transportation Method Patient Drives, Spouse Drives Functional Level Pt reports that spouse was assisting more with IADLs at home. AMbulates with tri rollator at baseline. Denies falls. Ind/modind with ADLs. Objective Precautions Back Brace, Lumbar Spine Pain Scale 6 Pain Character Ache, Throbbing Pain Location Back, Incisional Orientation Person, Place, Time, Situation Behavior Within Functional Limits, Cooperative Sensation Within Functional Limits Tone Within Functional Limits Hand Dominance Right Coordination Fine Motor Coordination Within Functional Limits Gross Motor Coordination Within Functional Limits Coordination Within Functional Limits Rapid Alternating Movements Intact Opposition Intact Strength RUE Strength Within Functional Limits LUE Strength Within Functional Limits Comments Bilateral upper extremities WFLs for participation in management of ADLs and functional mobility tasks. Good return demonstration of all post op UE ther ex while sitting at eob- performed 10-15x of each-- shoulder shrugs, anterior and posterior shoulder rolls, and bilateral shoulder flexion Outcome Measures Antoine Score Antoine Score Response Value Feeding Independent 10 Bathing Independent 5 Grooming Independent 5 Dressing Independent 10 Bowels Continent 10 Bladder Continent 10 Toilet Independent 10 Transfer(Bed to Chair and Back) Independent 15 obility (On Level Surfaces) Independent 15 tairs Independent 10 otal 100 ADL Function ADL Function Upper Body Dressing Independent Lower Body Dressing Modified Independent Toileting Modified Independent Feeding Independent Grooming Independent Comments Patient is independent/modified independent with all ADLs and functional mobility tasks. Able to perform cross legged lower body dressing technique. Educated pt regarding bathroom seating options for safety-- recommend shower chair as pt has 2 sturdy grab bars in tub shower Educated on how to don doff and adjust lumbar brace, pt verbalized understanding Transfers Transfers Supine to Sit Supervision Sit to Stand Supervision Stand to Sit Supervision Rolling Supervision, Modified Independent Comments good return demonstration of log roll transfer. Static Sitting Balance Good Dynamic Sitting Balance Good Static Standing Balance Good Dynamic Standing Balance Good Comments ambulated > 100 ft with ww, no overt balance or safety impairments. Treatment Additional Minutes of Tx Performed 10 Remained in Chair All Needs Within Reach Yes Comments UE ther ex/HEP performed seated at eob, educated on log roll transfer, bed mobility, precautions, safety, adapted LB ADLs, DME for bathroom Assessment/Plan for Inpt OT DC Recommendations Home-No Home Health Care Topic #1 Rehabilitation Techniques Teaching Method: TEACHBACK Teaching Method: DEMONSTATION Outcome: RETURN SKILL DEMO Problems Activity Tolerance Rehab Potential Excellent Treatment Tolerance Excellent Assessment Patient does not demonstrate additional need for skilled OT services at this time. Patient was pleasant, alert, and cooperative throughout the session. Patient Stated Goal: n/a Frequency of Therapy Eval Only Patient Status DISCHARGED Eval Completed Yes Eval Complexity Moderate Complexity Treatment Performed Yes ADDENDUM: SAMANTHA GARCIA on 12/11/19 at 1604 Addendum Add correction of in and out times: [id number] Electronically Signed eSign Date and Time Samantha Garcia OT 12/11/19 1604 [facility] z PT Inpatient Discharge Not norberto 12-11-2019 z PT Inpatient Discharge Note [facility] Patient: NICOLE LOMELI [address] [place] [address] MR#: [id number] PT INPATIENT DISCHARGE NOTE : 48 Service Date: 12/11/19 1226 z PT Inpt. HPI Discharge Note Date of Discharge 12/11/19 Start of Care Date 12/11/19 Final Date of Care 12/11/19 z PT Inpatient AP Discharge Treatment: Therapeutic Activity, Patient Education, Therapeutic Exercise, Gait Training, HEP, Neuromuscular Reeducation Equipment Issued Handouts Plan Discharge from PT Discharge Recommendations Home-No Home Health Care PT Status: DISCHARGED Electronically Signed eSign Date and Time Elmira Marquez PT 12/11/19 1227 [facility] z PT Inpatient Evaluationon 12-11-2019 z PT Inpatient Evaluation [facility] Patient: NICLOE LOMELI [address] [place] [address] MR#: [id number] PT INPATIENT EVALUATION : 48 Service Date: 12/11/19 1227 Inpatient PT HPI Date of Service 12/11/19 Time In: 1000 Time Out: 1050 Total Treatment Time (Mins) 12 Room Number 620 Visit Reason LUMBAR STENOSIS Referral Date 12/10/19 Tx Diagnosis: LOW BACK PAIN Insurance Name MEDICARE Hospital Course 69 Y/O PATIENT ADMITTED TO HOSP. FOR SX: 12-10-19: RIGHT L4-5 LAMI, FORAMINOTOMY, DECOMP WITH CYST REMOVAL. PT REFERRAL REC'D TO EVAL AND TX., FWB, PRECAUTIONS, BRACE WHEN OO ROOM,UP AD PORTIA WITH ASST, LOG ROLL, ENC AMB/CALF/ANKLE EX'S. AT ARRIVAL SUPINE IN BED. Past Medical/Social History Problem List Medical Problems COPD (chronic obstructive pulmonary disease) History of TIA (transient ischemic attack) Hyperlipidemia Lumbar stenosis Pre-op evaluation Surgical Problems Status post lumbar spine surgery for decompression of spinal cord Living Arrangements Home Lives With Spouse Mobility Aids TRI-WHEELED WALKER ADL Equipment Grab Bars (X 2 TUB/SHOWER), Hand Held Shower Hose, Long Shoe Horn, Communications Marketing Intern Steps to Enter House 1 Stairs Inside House 0 Functional Level PATIENT REPORTING USE TRI WHEELED WALKER FOR PAST 2 MOS. NO RECENT FALLS. INDEP ADL'S. PERFORMING IADL'S WITH DIFFICULTY. Objective Pain Pain Scale 9 Pain Character Ache Pain Location Incisional Precautions Back Brace, Fall, Spinal Equipment Drain, Heel Pad, Peripheral IV, SCD Dynamic Standing Balance Good (W/WW) Orientation Person, Place, Time, Situation Behavior Cooperative Sensation Within Functional Limits Tone Within Functional Limits Endurance Fair Posture Within Functional Limits Wound/Skin IV, INCISION Fine Motor Coordination Within Functional Limits Gross Motor Coordination Minimally Impaired ROM RUE ROM: SEE OT EVAL LUE ROM: SEE OT EVAL RLE ROM: WITHIN FUNCTIONAL LIMITS LLE ROM: WITHIN FUNCTIONAL LIMITS Strength RUE Strength: SEE OT EVALUATION LUE Strength: SEE OT EVALUATION RLE Strength: 4 /5 LLE Strength: 4 /5 Outcome Measures Modified Humphreys Score 1-No Serious Disability AM-PAC Inpatient Mobility AM-PAC Inpatient Mobility Response Value Turn Back/Side While Flat WO Bedrails None 4 Move From Lying to Side of Bed WO Bedrails A Little 3 Move To/From Bed to Chair A Little 3 Stand Up From Chair Using Arms None 4 alk in Hospital Room A Little 3 limb 3-5 Steps W Railing A Little 3 otal 20 Mobility Transfers Supine to Sit Independent Sit to Supine Contact Guard Assist Sit to Stand Independent Stand to Sit Independent Stand Pivot Contact Guard Assist Rolling Independent Weight Bearing Full Weight Bearing Comments PATIENT REQUIRING ASST WITH LE'S TO GET INTO BED. SPOUSE WILL ASST ONCE HOME. Gait Patient ambulated With Contact Guard Assist With Assistive Device Wheeled Walker For (Feet) 45' X 2 Comments PATIENT DEMO'S STEADY GT NO OVERT LOB. BRACE ON. PATIENT WILL HAVE BRAKES ON WHEN USING HER WALKER TO PREVENT WALKER FROM MOVING TOO QUICKLY. Treatment Additional Minutes of Tx Performed 12 Remained in Bed All Needs Within Reach Yes Comments EDUCATED ON PT SERVICES, ROLE, DC RECOMMENDATION.EDUCATED ON BRACE WEARING AND APPLICATION , FUNC MOBILITY, LOG ROLL, THER EX AND DEMO'S GOOD RETURN SKILL, PRECAUTIONS/PROTOCOL. Assessment/Plan for Inpt PT Discharge Recommendations Home-No Home Health Care Topic #1 EDUCATED ON PT SERVICES, ROLE, DC RECOMMENDATION. Teaching Method: BOOKLET Teaching Method: TEACHBACK Outcome: RETURN SKILL DEMO Treatment Tolerance Good Assessment Patient has no acute physical therapy needs at this time, DC from acute physical therapy. Performing all transfers, gait, and stair navigation at CGA level or greater. Verbalizing understanding of HEP/Precautions. Patient could benefit from either home PT services or outpatient PT services once oo precautions to progress her to less restrictive a.d. Patient will discuss with visit during post op visit; clincial coord. aware. Patient Stated Goal: N/A Frequency of Therapy: EVAL. Patient Status DISCHARGED Eval Completed Yes Eval Complexity Low Treatment Performed Yes Electronically Signed eSign Date and Time Elmira Marquez PT 12/11/19 1254 [facility] Internal Medicine Consultati onon 12-10-2019 Internal Medicine Consultation [facility] Patient: NICOLE LOMELI [facility] [place] [address] MR#: [id number] CONSULTATION - Internal Medicine : 48 Service Date: 12/10/19 1737 History of Present Illness Referring Physician Bob West MD HPI 69 yo F with PMHx of Anxiety, depression, COPD, GERD, Hx of TIA 2011, Migraine headache and Hx of cardiac normal cath 2011 is s/p L4-5 laminectomy and foraminotomy: POD 0 (DOS ) for lumbar stenosis. IM was consulted for medical management, Pt was seen in the PACU. During surgery, EBL was 30 ml. Currently, she is in moderate distress due to post-op pain on surgical site. Denies chest pain, SOB, dizziness, N/V, tingling/numbness. Medical/Surgical History Past Medical History Neurological History Migraines, TIA Respiratory History COPD GI History GERD Psychiatric History Anxiety Disorder, Depression Transfusion Status CONSERVATION Transfusion Reaction NOT APPLICABLE Past Surgical History Past Surgical Histroy Cholecystectomy, Hysterectomy Family/Social History Social History Amount *RARE How Often RARELY Allergies/Home Medications Allergies Coded Allergies: NO KNOWN DRUG ALLERGIES (12/10/19) Reconcile Medications Scheduled Medications Clopidogrel Bisulfate * (Plavix *) 75 MG TABLET 75 MG PO DAILY tia 2012 #45 TABLET, Ref 0 (Reported) Start saturday Entered as Reported by SUSAN SHETTY on 11/17/19 1058 Last Action: Edited on 12/11/19 1221 by SANGEETHA LIRA Ergocalciferol (Vitamin D2) * (Vitamin D2 *) 1,250 MCG (50,000 UNIT) CAPSULE 1,250 MCG PO EVERY 7 DAYS #0, Ref 0 (Reported) Entered as Reported by SUSAN SHETTY on 11/17/19 1101 Last Action: Reviewed on 12/10/19 1114 by ONDINA UMANZOR Fenofibrate, Micronized * (Tricor *) 145 MG TABLET 145 MG PO QHS #90 TABLET, Ref 0 ( Reported) Entered as Reported by SUSAN SHETTY on 11/17/19 1101 Last Action: Continued on 12/10/19 1742 by ABHINAV PEARSON Fluoxetine HCl 40 MG CAPSULE 40 MG PO DAILY #90, Ref 0 (Reported) Entered as Reported by SUSAN SHETTY on 11/17/19 1101 Last Action: Reviewed on 12/10/19 1114 by ONDINA UMANZOR Oxybutynin Chloride* (Ditropan*) 5 MG TABLET 5 MG PO DAILY #90, Ref 0 (Reported) Entered as Reported by SUSAN SHETTY on 11/17/19 1059 Last Action: Reviewed on 12/10/191113 by ONDINA UMANZOR Raloxifene HCl 60 MG TABLET 60 MG PO DAILY menopause #0, Ref 0 (Reported) Entered as Reported by SUSAN SHETTY on 11/17/191099 Last Action: Continued on 12/10/191741 by ABHINAV PEARSON Simvastatin * (Zocor *) 40 MG TABLET 40 MG PO QHS, Ref 0 (Reported) Entered as Reported by SUSAN SHETTY on 11/17/191058 Last Action: Reviewed on 12/10/191113 by ONDINA UMANZOR Zolpidem Tartrate * (Ambien 5mg Tablet*) 5 MG TABLET 5 MG PO QHS #30, Ref 0 (Reported) Entered as Reported by SUSAN SHETTY on 11/17/191058 Last Action: Continued on 12/10/191741 by ABHINAV PEARSON Scheduled PRN Medications Ipratropium/Albuterol MDI * (Combivent RESPIMAT MDI *) 4 GM INHALER 1 PUFFS INH QID PRN sob/copd #0, Ref 0 (Reported) Entered as Reported by SUSAN SHETTY on 11/17/191101 Last Action: Continued on 12/10/191741 by ABHINAV PEARSON oxyCODONE HCl 5mg AND Acetaminophen 325mg (Percocet 5mg/325mg Tablet*) 1 EACH TABLET 1 EACH PO Q12PRN PRN Moderate Pain #14, Ref 0 (Reported) Entered as Reported by SUSAN SHETTY on 11/17/191099 Last Action: Reviewed on 12/10/191113 by ONDINA UMANZOR oxyCODONE HCl 5mg AND Acetaminophen 325mg * (Percocet 5mg/325mg Tablet *) 1 EACH TABLET 1 UDTAB PO Q4-6H PRN PRN post-operative pain 7 Days #40 TABLET, Ref 0 Prescribed by AUBREY HAYES on 12/11/19 Last Action: No Recorded Action tiZANidine HCl * (Zanaflex *) 4 MG TABLET 4 MG PO TIDPRN PRN muscle spasm #90, Ref 0 ( Reported) Entered as Reported by SUSAN SHETTY on 11/17/191101 Last Action: Continued on 12/10/191741 by ABHINAV PEARSON Review of Systems Review of Systems Constitutional Denies: Fever, Fatigue, Chills. EENT Denies: Vision Change, Vision Problems, Sore Throat, Dysphagia, Odynophagia. Cardiovascular Denies: Chest Pain, Pain on Exertion, Dyspnea on Exertion. Pulmonary Denies: Pleuritic Chest Pain, Dyspnea, Cough. GI Denies: Abdominal Pain, Nausea, Vomiting. Denies: Dysuria, Hematuria, Retention, Urgency. Musculoskeletal Reports: Back Pain. Denies: Joint Pain, Joint Swelling, Upper Extremity Pain, Lower Extremity Pain. Skin Reports: Back Pain. Denies: Ankle Swelling, Leg Swelling. Peripheral Venous/Lymphatics Denies Ankle Swelling, Denies Enlarged Lymph Nodes, Denies Leg Swelling Endocrine Denies: Cold Intolerance, Heat Intolerance, Weight Gain, Weight Loss, Hyperdefecation. Neuro Denies: Headache, Syncope, Dizziness, Vertigo, Numbness, Weakness. Psychiatric Denies: Depression, Anxiety, Suicidal Thoughts, Suicidal Plan, Homicidal Thoughts. ROS: All Others Systems Reviewed and are Negative Yes Physical Exam Vital Signs Vital Signs Vital Signs Verdana 4d Result Date Time Pulse Ox 95 12/09 1123 B/P 137/64 12/09 1123 Temp 37.1 12/09 1123 Pulse 79 12/09 1123 Resp 18 12/09 1123 Appearance Appearance Appears well, Awake, Alert Cm: 152.40 Wt-K.000 BMI 31.4 Patient is Obese Pain Scale 7 Neck Neck Normal inspection, No JVD, Supple Neck - Expanded No: Muscle Spasm, Lymphadenopathy. HEENT HEENT Head atraumatic, Eyes normal inspection, No signs of dehydration Respiratory Respiratory Lungs sound clear, Respirations non-labored Lung Sounds by Lobe L LOWER LOBE Clear, L UPPER LOBE Clear, R LOWER LOBE Clear, R MIDDLE LOBE Clear, R UPPER LOBE Clear CVS Cardiovascular Rate WNL, Rhythm regular, Normal heart sounds, Pulses full, equal Neuro * Document results of Cranial Nerve Asmt for all pts. Neurological Alert, Oriented x 3, No motor deficit, No sensory deficit Mental Status Oriented x 3 Speech/Language No: Dysarthric, Expressive aphasia. Motor Exam L lower extrmty Normal power, L upper extrmty Normal power, R lower extrmty Normal power, R upper extrmty Normal power Cranial Nerves Normal II, Normal III, Normal IV, Normal V, Normal , Normal VII, Normal VIII, Normal IX, Normal X, Normal XI, Normal XII Abdomen/Pelvis Abdomen Bowel sounds present, Abdomen soft, Non-tender, No distension Abdomen/GI - Expanded Exam No: Rigidity, Distention, Tenderness. Extremity Extremity Normal appearance, Sensation intact, No vascular compromise, Pedal pulses present b/l Skin Skin Color normal, Skin warm, dry Assessment/Plan Assessment and Plan #s/p L4-5 laminectomy and foraminotomy: POD 0 (DOS 12/10/19) - h/o lumbar stenosis - No B/L LE swelling or tenderness, pedal pulses present b/l - Moderate pain at surgical site - EBL 30 ml -Plan: * Pain and post-op management as per surgery * Ancef 2 gm once * Dexamethasone 10 mg q8 * Advice IS * PT/OT on board #HLD #h/o TIA -Fenofibrate 145 mg qhs -Plavix on hold #COPD -Breathing tx #Osteoporosis prevention -Raloxifene 60 mg daily #DVT prophylaxis -PCD s, rest as per Sx *Attending Attestation Attending Attestation Attending Attestation PATIENT SEEN ON 12/11/2019. All pertinent elements of history and physical exam were confirmed by me. Agree with above documentation. The [resident's, PA's, DIE OPERATOR's] assessment and plan reflect my input. Discussed with documenting provider and patient. Plan is as outlined above. Electronically Signed eSign Date and Time Abhinav Pearson RES, Donald E. MD 12/11/19 1309 [facility] OPERATIVE REPORTon 0 OPERATIVE REPORT NAME: TEMI LOMELI MR#: [id number] SURGEON: Bob West MD DATE OF SURGERY: 12/10/2019 OPERATIVE REPORT PREOPERATIVE DIAGNOSIS: Facet cyst/stenosis with radiculopathy. POSTOPERATIVE DIAGNOSIS: Facet cyst/stenosis with radiculopathy. PROCEDURE: Right L4-5 laminotomy, foraminotomy, and decompression with cyst excision. DETAILS: After anesthesia, the patient was placed prone on a spine frame. Care was taken to avoid injury to the eyes, axilla, and the median and ulnar nerves. The back was prepped and draped in the usual fashion. Incision was planned using a needle and C-arm. A longitudinal incision was made over L4-5 with sharp dissection subcutaneous tissues. The fascia and paraspinal muscles were dissected bluntly down to the right L4-5 interspace and the tubular retractor was inserted and x-ray confirmed position in AP and lateral planes. The right L4 lamina was cleared of soft tissue and directly visualized. Under magnification, the lamina and medial facet was thinned with a bur. Laminotomy was performed by removing the inferior aspect of the L4 lamina with Kerrison rongeurs. Partial medial facetectomy was performed with Kerrison rongeurs. The ligamentum was released with a nerve hook and removed with Kerrison rongeurs while protecting the dura. The superior aspect of the L5 lamina was removed with Kerrison rongeurs and in doing so, the traversing L5 root was well decompressed. The lateral recess was decompressed with straight and curved Kerrison rongeurs and foraminotomy performed with curved Kerrison rongeurs. After thorough decompression, the epidural space was palpated with a Campbell hook. The foramen was patent. The exiting L4 root was well decompressed. The lateral recess was well decompressed and traversing L5 root was well decompressed. The cyst was removed while doing the partial medial facetectomy. The wound was irrigated with saline Betadine solution. Hemostasis was achieved with FloSeal. The tubular retractor was removed and bleeding coagulated. A silastic drain was left deep in the wound exiting through separate stab incision. The fascia, subcutaneous tissues, and skin were closed in the usual manner. Dressings were applied. The patient was awakened, taken recovery in excellent condition. There were no complications. BOB WEST MD [facility] PT NAME: NICOLE LOMELI MR#: [id number] [address] [place] [address] ACCT: [id number] : 48 OPERATIVE REPORT [id number] E/S: Bob West MD 01/01/20 1516 Electronically Signed [facility] PT NAME: NICOLE LOMELI MR#: [id number] [address] [place] [address] ACCT: [id number] : 48 OPERATIVE REPORT [facility] Primary Residenton 0 Primary Resident [facility] Pt Name: NICOLE LOMELI MR#: [id number] [address] [place] [address] ACCT: [id number] [place] [id number] : 48 Service Date: 12/10/19 1755 Primary Resident/Call Primary Resident: [id number] Adán Pearson After Hours Call: [phone] Red Team Electronically Signed eSign Date and Time Abhinav Pearson RES 12/10/19 1755 [facility] LUMBAR SPINE 2 OR 3 VIEWSon 12-09-2019 LUMBAR SPINE 2 OR 3 VIEWS Exam: Fluoroscopic images during lumbar spine fusion. Clinical History: Pain. Findings: Multiple fluoroscopic images during lumbar spine surgery with placement of surgical marker at L4-L5 level. Please refer to the surgical note for further details. Impression: As above. Dictated: 12/11/19 1049 REPORT SIGNATURE ON FILE12/11/19(1049) Reported By: MERRITT AUGUSTINE Signed By: MERRITT AUGUSTINE [facility] CORONAVIRUSon 12-08-2019 CORONAVIRUS Negative results do not preclude SARS-CoV-2 infection and should not be used as the sole basis for patient management decisions. Negative results must be combined with clinical observations, patient history, and epidemiological information. False-negative results may occur if the viruses are present at a level that is below the analytical sensitivity of the assay or if the virus has genomic mutations, insertions, deletions, or rearrangements or if performed very early in the course of illness. Results may be affected by the quality of the sample collected. Simplexa COVID-19 Direct is only for use under the Food and Drug Administration's Emergency Use Authorization. The Simplexa COVID-19 Direct Letter of Authorization, along with the authorized Fact Sheet for Healthcare Providers, the authorized Fact Sheet for Patients, and authorized labeling are available on the FDA website: https://www.fda.gov/Medic alDevices/Safety/ EmergencySituations/ucm16 1496.htm COVID-19 Negative for COVID-19 (SARS-CoV-2 RNA) [facility] Comment on above: Order Comment: MONSERRATN: YESCampus: MAINComment: OVID Testing: PRE-OP/PROCEDURE Performed By: #### M 400.26676 ####Test performed at: [place] [address] CORONAVIRUSon 11-18-2019 CORONAVIRUS Negative results do not preclude SARS-CoV-2 infection and should not be used as the sole basis for patient management decisions. Negative results must be combined with clinical observations, patient history, and epidemiological information. False-negative results may occur if the viruses are present at a level that is below the analytical sensitivity of the assay or if the virus has genomic mutations, insertions, deletions, or rearrangements or if performed very early in the course of illness. Results may be affected by the quality of the sample collected. Simplexa COVID-19 Direct is only for use under the Food and Drug Administration's Emergency Use Authorization. The Simplexa COVID-19 Direct Letter of Authorization, along with the authorized Fact Sheet for Healthcare Providers, the authorized Fact Sheet for Patients, and authorized labeling are available on the FDA website: https://www.fda.gov/Medic alDevices/Safety/ EmergencySituations/ucm16 1496.htm COVID-19 Negative for COVID-19 (SARS-CoV-2 RNA) [facility] Comment on above: Order Comment: MONSERRATN: YES [place]: MAIN Comment: 11/18 COVID Testing: PRE-OP/PROCEDURE Performed By: #### M 400.62768 #### Test performed at: [place] [address] CBC W/DIFFon 11-17-2019 BASO ABS 0.0 K/uL Normal 0.0-0.2 [facility] Comment on above: Performed By: #### L 200.88905 #### Test performed at: [place] [address] Basophils/100 WBC (Bld) 0.2 % [facility] Comment on above: Performed By: #### L 200.47450 #### Test performed at: [address] [address] EOS ABS 0.1 K/uL Normal 0.0-0.5 [facility] Comment on above: Performed By: #### L 200.01601 #### Test performed at: [address] [address] Eosinophils/100 WBC (Bld) 1.4 % [facility] Comment on above: Performed By: #### L 200.60819 #### Test performed at: [address] [address] IG % 0.5 % [facility] Comment on above: Performed By: #### L 200.51384 #### Test performed at: [address] [address] IG ABS 0.04 K/uL Normal 0-0.05 [facility] Comment on above: Performed By: #### L 200.57728 #### Test performed at: [address] [address] Lymphocytes (Bld) [#/Vol] 2.5 10*3/uL Normal 1.2-3.5 [facility] Comment on above: Performed By: #### L 200.05115 #### Test performed at: [address] [address] Lymphocytes/100 WBC (Bld) 28.8 % [facility] Comment on above: Performed By: #### L 200.77679 #### Test performed at: [address] [address] MONO ABS 0.6 K/uL Normal 0.0-1.0 [facility] Comment on above: Performed By: #### L 200.82714 #### Test performed at: [address] [address] Monocytes/100 WBC (Bld) 7.2 % [facility] Comment on above: Performed By: #### L 200.75492 #### Test performed at: [address] [address] NEUTROPHIL ABS 5.3 K/uL Normal 1.4-6.6 [facility] Comment on above: Performed By: #### L 200.30304 #### Test performed at: [address] [address] Neutrophils/100 WBC (Bld) 61.9 % [facility] Comment on above: Performed By: #### L 200.62398 #### Test performed at: [address] [address] Erythrocyte distribution width (RBC) [Ratio] 13.8 % Normal 11.5-14.5 [facility] Comment on above: Performed By: #### L 200.70991 #### Test performed at: [address] [address] Hematocrit (Bld) [Volume fraction] 38.6 % Normal 36.0-48.0 [facility] Comment on above: Performed By: #### L 200.60666 #### Test performed at: [address] [address] Hemoglobin (Bld) [Mass/Vol] 12.4 g/dL Normal 12.0-15.0 [facility] Comment on above: Performed By: #### L 200.45912 #### Test performed at: [address] [address] MCH (RBC) [Entitic mass] 31.1 pg Normal 25.4-34.6 [facility] Comment on above: Performed By: #### L 200.06159 #### Test performed at: [address] [address] MCHC (RBC) [Mass/Vol] 32.1 g/dL Normal 31.5-36.5 [facility] Comment on above: Performed By: #### L 200.82935 #### Test performed at: [address] [address] MCV (RBC) [Entitic vol] 96.7 fL Normal 79.0-98.0 [facility] Comment on above: Performed By: #### L 200.66653 #### Test performed at: [address] [address] NRBC # 0.000 K/uL Normal 0-0.012 [facility] Comment on above: Performed By: #### L 200.55126 #### Test performed at: [address] [address] NRBC % 0.0 /100 WBC Normal 0-0.2 [facility] Comment on above: Performed By: #### L 200.17958 #### Test performed at: [address] [address] Platelet mean volume (Bld) [Entitic vol] 10.8 fL Normal 8.7-12.4 [facility] Comment on above: Performed By: #### L 200.98898 #### Test performed at: [address] [address] Platelets (Bld) [#/Vol] 268 10*3/uL Normal 140-440 [facility] Comment on above: Performed By: #### L 200.35917 #### Test performed at: [address] [address] RBC (Bld) [#/Vol] 3.99 10*6/uL Normal 3.5-5.5 [facility] Comment on above: Performed By: #### L 200.94996 #### Test performed at: [address] [address] WBC (Bld) [#/Vol] 8.5 10*3/uL Normal 3.9-11.0 [facility] Comment on above: Performed By: #### L 200.17021 #### Test performed at: [address] [address] CHEST PA/AP & LATERAL OR 2 V WSon 11-17-2019 CHEST PA/AP & LATERAL OR 2 VWS STUDY: CHEST PA/AP LATERAL OR 2 VWS; 11/17/2019 12:06 pm INDICATION: Pre op . COMPARISON: None. ACCESSION NUMBER(S): [id number] ORDERING CLINICIAN: Tariq Pino FINDINGS: The lungs are clear without pleural effusion. Normal heart size, mediastinum, kenneth, and pulmonary vasculature. Thoracic degenerative changes. Partially imaged cervical fusion hardware. IMPRESSION: No active disease in the chest. Normal [facility] COMP META PANELon 11-17-2019 Albumin [Mass/Vol] 3.6 g/dL Normal 3.4-5.0 [facility] Comment on above: Performed By: #### L 500.57818, L500.54415 #### Test performed at: [address] [address] ALK PHOS TOTAL 83 U/L Normal 45-117 [facility] Comment on above: Performed By: #### L 500.47812, L500.41540 #### Test performed at: [address] [address] ALT [Catalytic activity/Vol] 14 U/L Normal 13-61 [facility] Comment on above: Performed By: #### L 500.45434, L500.09698 #### Test performed at: [address] [address] AST [Catalytic activity/Vol] 22 U/L Normal 15-37 [facility] Comment on above: Performed By: #### L 500.39935, L500.51484 #### Test performed at: [address] [address] BILI TOTAL 0.2 mg/dL Normal 0.2-1.0 [facility] Comment on above: Performed By: #### L 500.70012, L500.29466 #### Test performed at: [address] [address] Calcium [Mass/Vol] 8.5 mg/dL Normal 8.5-10.1 [facility] Comment on above: Performed By: #### L 500.30588, L500.37343 #### Test performed at: [address] [address] Chloride [Moles/Vol] 107 mmol/L Normal 98-107 [facility] Comment on above: Performed By: #### L 500.84867, L500.46746 #### Test performed at: [address] [address] CO2 [Moles/Vol] 29 mmol/L Normal 21-32 [facility] Comment on above: Performed By: #### L 500.57163, L500.14369 #### Test performed at: [address] [address] Creatinine [Mass/Vol] 0.877 mg/dL Normal 0.550- 1.02 0 [facility] Comment on above: Performed By: #### L 500.81280, L500.76007 #### Test performed at: [address] [address] Glucose [Mass/Vol] 103 mg/dL High 70-99 [facility] Comment on above: Result Comment: Fast ing GLUCOSE reference range has been updated per (ADA) [place] [employer]'s recommendation. 07/01/2018 Performed By: #### L 500.70963, L500.75739 #### Test performed at: [address] [address] Potassium [Moles/Vol] 3.9 mmol/L Normal 3.5-5.1 [facility] Comment on above: Performed By: #### L 500.90997, L500.93339 #### Test performed at: [address] [address] Protein [Mass/Vol] 6.4 g/dL Normal 6.4-8.2 [facility] Comment on above: Performed By: #### L 500.20759, L500.13532 #### Test performed at: [address] [address] Sodium [Moles/Vol] 141 mmol/L Normal 136-145 [facility] Comment on above: Performed By: #### L 500.29221, L500.55663 #### Test performed at: [address] [address] Urea nitrogen [Mass/Vol] 10 mg/dL Normal 7-18 [facility] Comment on above: Performed By: #### L 500.09257, L500.95231 #### Test performed at: [address] [address] GFR ESTIMATEon 11-17-2019 IF AMER > 60 Normal > 60 [facility] Comment on above: Result Comment: eGFR (Estimated GFR) Units of measure:mL/min/1.73 meters sq. *CALCULATION REVISED 01/25/2015;IDMS-traceable MDRD equation eGFR is derived from the reexpressed MDRD Study equation using the following parameters: serum creatinine, age, gender and race. An eGFR<60 mL/min/1.73m2 for >3 months is consistent with chronic kidney disease. Refer to KDOQI guidelines for clinical interpretation. Performed By: #### L 500.00851, L500.67824 #### Test performed at: [place] [address] IF non-AFR AMER > 60 Normal > 60 [facility] Comment on above: Performed By: #### L 500.69108, L500.32050 #### Test performed at: [place] [address] GLYCO HEMOon 11-17-2019 HbA1c (Bld) [Mass fraction] 5.5 % Normal [facility] Comment on above: Result Comment: Deya sellers Diagnosis HbA1c (%) --------- Diabetic > 6.4 Prediabetes 5.7-6.4 Normal < 5.7 Performed By: #### L 500.96453 #### Test performed at: [place] [address] H & Bart 11-17-2019 H & P [facility] Patient: NICOLE LOMELI [address] [place] [address] MR#: [id number] HISTORY and PHYSICAL : Service Date: 11/17/19 1121 HPI/Past Med Surg Hx/Fam Soc HPI Primary Care Physician Information Source PATIENT Language Barrier No Chief Complaint Pre op evaluation History of Present Illness This is A 69 year-old female patient with a history of Lumbar stenosis scheduled for L4-5 laminotomy, foraminotomy and discectomy with cyst removal. Seen today for preoperative assessment. The patient complaining of worsening lower back pain, sharp in nature, radiated down to hips and increase with movement. The past medical history is significant for Anxiety, depression, COPD, GERD, Hx of TIA 2011, Migraine headache and Hx of cardiac normal cath 2011. She is physically active, with limitation due to Back pain. She reported SOB on ext. She denied any chest pain, orthopnea, PNDs, and lower ext swelling. Denied snoring loudly. Denied feeling tired, fatigued, or sleepy during the daytime. Denied any personal or family history of anesthetic problems following the previous surgery. 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 Existing infection before surg No Eyes Reports Vision Problems, Reports Wears Glasses HEENT Reports: Dental problems, Wears dentures, Hearing loss. Denies: Sore throat, Nasal congestion, Tympanic Membranes Intact. Pulmonary Reports: Shortness of breath. Denies: Dyspnea on exertion, Asthma, Wheezing, Cough, Sleep apnea, Uses CPAP, Uses BIPAP. Cardiac Denies: Chest pain, Pain on exertion, History of PR, Palpitation, Syncope, Murmur, Leg swelling, History of Cardiac Stents. Gastrointestinal Denies: Nausea, Vomiting, Diarrhea, Constipation, Hx Gastric bypass surgery, Abdominal Pain, Melena/Rectal Bleeding, Heartburn. Urologic Denies: No Issues Noted, Dysuria, Polyuria, Hematuria, Hx Kidney stones, Nocturia, Urinary Frequency. Musculoskeletal Reports: Back pain. Denies: Arthralgias. Endocrine Denies: No Issues Noted, Diabetes, Thyroid disease, Elevated cholesterol. Hematologic Denies: No Issues Noted, Hx Blood clot in legs, Hx Blood clot in lungs, Easy bleeding/ bruising, Hx of Anemia. Skin NEGATIVE: No Issues Noted, Rashes, Bruising, Other. Physical Exam Vital Signs Vital Signs Vital Signs Verdana 4d Result Date Time Pulse Ox 96 11/16 1104 B/P 133/62 11/16 1104 Temp 37.0 11/16 1104 Pulse 78 11/16 1104 Resp 18 11/16 1104 Appearance Appearance Appears well, Awake, Alert, No distress Neck Neck Normal inspection, No JVD, Supple, Full range of motion HEENT HEENT Head atraumatic, Eyes normal inspection, PERRLA Mallampati Classification NA Respiratory Respiratory Lungs sound clear, Respirations non-labored, Symmetrical expansion CVS Cardiovascular Rate WNL, Rhythm regular, Normal heart sounds, Pulses full, equal Neuro Neurological Alert, Oriented x 3, No motor deficit, No sensory deficit Abdomen/Pelvis Abdomen Bowel sounds present, Abdomen soft, Non-tender, No distension Extremity Extremity Normal appearance, Full ROM, Sensation intact, Motor Intact, No vascular compromise, Tendon function NML, No tenderness, No pedal edema, Symmetrical, mild edema Skin Skin Color normal, Skin warm, dry Allergies/Home Medications Allergies Coded Allergies: QUINOLONES (01/04/06) Uncoded Allergies: Allergies Cont: NONE Drug (KERA) Allergies: FLOXIN Food/Other Allergies: NKA Latex Allergy: NKA Reconcile Medications Scheduled Medications Clopidogrel Bisulfate * (Plavix *) 75 MG TABLET 75 MG PO DAILY tia 2012 #45, Ref 0 ( Reported) Entered as Reported by SUSAN SHETTY on 11/17/19 1058 Last Action: Reviewed on 11/17/19 110 by SUSAN SHETTY Ergocalciferol (Vitamin D2) * (Vitamin D2 *) 1,250 MCG (50,000 UNIT) CAPSULE 1,250 MCG PO EVERY 7 DAYS #0, Ref 0 (Reported) Entered as Reported by SUSAN SHETTY on 11/17/19 110 Last Action: Reviewed on 11/17/19 110 by SUSAN SHETTY Fenofibrate, Micronized * (Tricor *) 145 MG TABLET 145 MG PO DAILY #90, Ref 0 (Reported ) Entered as Reported by SUSAN SHETTY on 11/17/19 110 Last Action: Reviewed on 11/17/19 110 by SUSAN SHETTY Fluoxetine HCl 40 MG CAPSULE 40 MG PO DAILY #90, Ref 0 (Reported) Entered as Reported by SUSAN SHETTY on 11/17/19 1101 Last Action: Reviewed on 11/17/19 110 by SUSAN SHETTY Oxybutynin Chloride* (Ditropan*) 5 MG TABLET 5 MG PO DAILY #90, Ref 0 (Reported) Entered as Reported by SUSAN SHETTY on 11/17/191058 Last Action: Reviewed on 11/17/191102 by SUSAN SHETTY Raloxifene HCl 60 MG TABLET 60 MG PO DAILY menopause #0, Ref 0 (Reported) Entered as Reported by SUSAN SHETTY on 11/17/191099 Last Action: Reviewed on 11/17/191102 by SUSAN SHETTY Simvastatin * (Zocor *) 40 MG TABLET 40 MG PO QHS, Ref 0 (Reported) Entered as Reported by SUSAN SHETTY on 11/17/191058 Last Action: Reviewed on 11/17/191101 by SUSAN SHETTY Zolpidem Tartrate * (Ambien 5mg Tablet*) 5 MG TABLET 5 MG PO QHS #30, Ref 0 (Reported) Entered as Reported by SUSAN SHETTY on 11/17/191058 Last Action: Reviewed on 11/17/191102 by SUSAN SHETTY Scheduled PRN Medications Ipratropium/Albuterol MDI * (Combivent RESPIMAT MDI *) 4 GM INHALER 1 PUFFS INH QID PRN sob/copd #0, Ref 0 (Reported) Entered as Reported by SUSAN SHETTY on 11/17/191101 Last Action: Reviewed on 11/17/191101 by SUSAN SHETTY oxyCODONE HCl 5mg AND Acetaminophen 325mg (Percocet 5mg/325mg Tablet*) 1 EACH TABLET 1 EACH PO Q12PRN PRN Moderate Pain #14, Ref 0 (Reported) Entered as Reported by SUSAN SHETTY on 11/17/191099 Last Action: Reviewed on 11/17/191101 by SUSAN SHETTY tiZANidine HCl * (Zanaflex *) 4 MG TABLET 4 MG PO TIDPRN PRN muscle spasm #90, Ref 0 ( Reported) Entered as Reported by SUSAN SHETTY on 11/17/191101 Last Action: Reviewed on 11/17/191101 by SUSAN SHETTY Diagnostics/Assessment AND Plan Assessment and Plan Assesment and Plan 1- Lumbar stenosis scheduled for L4-5 laminotomy, foraminotomy and discectomy with cyst removal. * Patients assessed to be low risk for major cardiac events * ASA III * CBC and CMP * COVID-19 * ECG 2- Hyperlipidemia: * Continue Statin AND Fenofibrate 3- Hx of TIA * On Plavix 4- Anxiety and depression * On Fluoxetine 5- COPD * On Inhaler 6- On Raloxifene for osteoporosis prevention * Due to risk of VTE * Advice to Stop it before the surgery 7- The risk for JOCELYN: * Score 1 in the STOP-BANG questionnaire Patient had Abnormal ECG (ST changes Ant leads). She reported SOB on ext. She needs cardiac clearance Problem List Medical Problems COPD (chronic obstructive pulmonary disease) History of TIA (transient ischemic attack) Hyperlipidemia Lumbar stenosis Pre-op evaluation Code Status FULL CODE ASA Classification Severe Systemic Disease Electronically Signed eSign Date and Time Tariq Pino MD 11/17/19 1526 Normal [facility] TSPATon 11-17-2019 ABO and Rh group Nom (Bld) A POSITIVE Normal [facility] Comment on above: Order Comment: Trans fusion Status: CONSERVATION Blood Bank service requested: TYPE AND SCREEN Performed By: #### B 100.0201 #### Test performed at: [address] VENOUS REFLUX STUDY LTon 09-02-2019 VENOUS REFLUX STUDY LT Patient: NICOLE LOMELI Exam Date: 09/02/2019 : 1950 Gender:F Ordering : DR PARRIS GUZMAN Admission #: [id number] Family : Order #: [id number] CLICK HERE TO VIEW EXAM RADIOLOGY REPORT PROCEDURE: ULTRASOUND VENOUS REFLUX STUDY LEFT COMPARISON: None. INDICATIONS: Localized edema R60.0 TECHNIQUE: Duplex imaging of the lower extremity to assess the deep and superficial venous system for the presence of deep or superficial venous incompetence and to document the location and severity of disease. The study includes evaluation of the great saphenous vein (GSV), anterior accessory saphenous vein (AASV) and small saphenous vein (SSV). FINDINGS: LEFT LOWER EXTREMITY: Saphenofemoral Junction Reflux: No, 12.8mm GSV: Diam (mm) Reflux/ Time (sec) Proximal Thigh 10.9 No Mid Thigh 3.8 No Distal Thigh 3.5 No Prox Calf 3.1 No Mid Calf 4.0 No Saphenopopliteal Junction Reflux: 2.5 mm No SSV: Proximal Calf 2.5 No Mid Calf 1.5 No AASV: Not present Thrombi: None Compressibility: Normal Flow: Normal Vegetables Cook: Vegetables Cook visualized on the left mid medial lower leg measures 2.7 mm with 0s of reflux. Tech Note: Competent SFJ and SPJ. Small varicose vein visualized on the left mid medial leg measures 3 mm with 0.9 s of reflux. CONCLUSION: 1. Dilation of the proximal right great saphenous vein with no associated venous insufficiency 2. Incompetent varicose vein left mid medial leg Dictated by: Altagracia Vargas MD on 09/02/2019 at 12:45 Approved by: Altagracia Vargas MD on 09/02/2019 at 12:47 Normal [facility] XR PELVIS 1_2 VIEWSon 2019 XR PELVIS 1_2 VIEWS EXAMINATION: XR PELV IS 1_2 VIEWS HISTORY: Bilateral hip joint pain COMPARISON: No relevant comparison available. FINDINGS: BOWEL GAS PATTERN: No abnormal dilation or deviation. CALCIFICATIONS: Multiple pelvic calcifications, vascular phleboliths are favored. Scattered surgical clips project over the sacrum OTHER: Minimal degenerative osteoarthropathy of both hips with joint space narrowing IMPRESSION: Minimal degenerative osteoarthritis Electronically authenticated by: ALTAGRACIA VARGAS Date: 2019-09-02 12:51 Normal [facility] Vital Signs Date Time Vital Sign Value Performing Clinician Facility 11-15-2023 08:22-0400 Body height 157.48 cm DO Parris Thomas Work Phone: [facility] 11-15-2023 08:22-0400 Body mass index (BMI) [Ratio] 34.7 kg/m2 DO Parris Thomas Work Phone: [facility] 11-15-2023 08:22-0400 Body temperature 97.2 [degF] DO Parris Thomas Work Phone: [facility] 11-15-2023 08:22-0400 Body weight 86 kg DO Parris Thomas Work Phone: [facility] 11-15-2023 08:22-0400 Diastolic blood pressure 63 mm[Hg] DO Parris Thomas Work Phone: [facility] 11-15-2023 08:22-0400 Heart rate 75 /min DO Parris Thomas Work Phone: [facility] 11-15-2023 08:22-0400 Systolic blood pressure 110 mm[Hg] DO Parris Thomas Work Phone: [facility] 09-23-2023 11:15-0400 Body height 157.48 cm DO Parris Thomas Work Phone: [facility] 09-23-2023 11:15-0400 Body mass index (BMI) [Ratio] 33.6 kg/m2 DO Parris Thomas Work Phone: [facility] 09-23-2023 11:15-0400 Body temperature 99.4 [degF] DO Parris Thomas Work Phone: [facility] 09-23-2023 11:15-0400 Body weight 83.46 kg DO Parris Thomas Work Phone: [facility] 09-23-2023 11:15-0400 Diastolic blood pressure 72 mm[Hg] DO Parris Thomas Work Phone: [facility] 09-23-2023 11:15-0400 Heart rate 87 /min DO Parris Thomas Work Phone: [facility] 09-23-2023 11:15-0400 Respiratory rate 20 /min DO Parris Thomas Work Phone: [facility] 09-23-2023 11:15-0400 SaO2% (BldA) [Mass fraction] 96 % DO Parris Thomas Work Phone: [facility] 09-23-2023 11:15-0400 Systolic blood pressure 126 mm[Hg] DO Parris Thomas Work Phone: [facility] 09-04-2023 08:44-0400 Body height 157.48 cm [facility] 09-04-2023 08:44-0400 Body mass index (BMI) [Ratio] 33.6 kg/m2 [facility] 09-04-2023 08:44-0400 Body temperature 97.5 [degF] [facility] 09-04-2023 08:44-0400 Body weight 83.46 kg [facility] 09-04-2023 08:44-0400 Diastolic blood pressure 68 mm[Hg] [facility] 09-04-2023 08:44-0400 Heart rate 83 /min [facility] 09-04-2023 08:44-0400 Inhaled oxygen flow rate 4 L/min [facility] 09-04-2023 08:44-0400 Respiratory rate 20 /min [facility] 09-04-2023 08:44-0400 SaO2% (BldA) [Mass fraction] 99 % [facility] 09-04-2023 08:44-0400 Systolic blood pressure 118 mm[Hg] [facility] 08-27-2023 11:00-0400 Hourly Rounding Albert CLARK [facility] 08-27-2023 10:40-0400 Hourly Rounding Albert CLARK [facility] 08-27-2023 10:40-0400 Promise to Return Albert CLARK [facility] 08-27-2023 09:10-0400 Hourly Rounding Albert CLARK [facility] 08-27-2023 09:10-0400 Promise to Return Albert CLARK [facility] 08-27-2023 08:11-0400 Promise to Return Albert CLARK [facility] 08-27-2023 08:01-0400 SaO2% (BldA) [Mass fraction] 95 % Albert KHALILSLIN [facility] 08-27-2023 08:00-0400 Body temperature 97.88 [degF] Albertmikal KHALILSLIN [facility] 08-27-2023 08:00-0400 Diastolic blood pressure 86 mm[Hg] Albertmikal KHALILSLIN [facility] 08-27-2023 08:00-0400 Heart rate 88 /min Albertmikal KHALILSLIN [facility] 08-27-2023 08:00-0400 Respiratory rate 16 /min Albertmikal KHALILSLIN [facility] 08-27-2023 08:00-0400 SaO2% (BldA) [Mass fraction] 97 % Albertmikal KHALILSLIN [facility] 08-27-2023 08:00-0400 Systolic blood pressure 146 mm[Hg] Albertmikal KHALILSLIN [facility] 08-27-2023 05:36-0400 Blood Pressure Location Albertmikal KHALILSLIN [facility] 08-27-2023 05:36-0400 Body temperature 96.8 [degF] Albertmikal KHALILSLIN [facility] 08-27-2023 05:36-0400 Diastolic blood pressure 76 mm[Hg] Albertmikal KHALILSLIN [facility] 08-27-2023 05:36-0400 Heart rate 95 /min Albertmikal KHALILSLIN [facility] 08-27-2023 05:36-0400 Mean blood pressure 92 mm[Hg] Albertmikal KHALILSLIN [facility] 08-27-2023 05:36-0400 Respiratory rate 18 /min Albert RODAS [facility] 08-27-2023 05:36-0400 SaO2% (BldA) [Mass fraction] 94 % Albert MANZOLIN [facility] 08-27-2023 05:36-0400 Systolic blood pressure 123 mm[Hg] Albert KHALILSLIN [facility] 08-27-2023 00:14-0400 Blood Pressure Location Albert RODAS [facility] 08-27-2023 00:14-0400 Body temperature 97.88 [degF] Albert KHALILSLIN [facility] 08-27-2023 00:14-0400 Diastolic blood pressure 77 mm[Hg] Albert MANZOLIN [facility] 08-27-2023 00:14-0400 Heart rate 88 /min Albertmikal MANZOLIN [facility] 08-27-2023 00:14-0400 Mean blood pressure 95 mm[Hg] Albert KHALILSLIN [facility] 08-27-2023 00:14-0400 Respiratory rate 18 /min Albert KHALILSLIN [facility] 08-27-2023 00:14-0400 Systolic blood pressure 131 mm[Hg] Albertmikal KHALILSLIN [facility] 08-26-2023 20:13-0400 Respiratory rate 18 /min Albertmikal KHALILSLIN [facility] 08-26-2023 19:29-0400 Body temperature 97.7 [degF] Albert KHALILSLIN [facility] 08-26-2023 19:29-0400 Mean blood pressure 86 mm[Hg] Albert MANZOLIN [facility] 08-26-2023 16:12-0400 Blood Pressure Location Albertmikal MANZOLIN [facility] 08-26-2023 16:12-0400 Body temperature 97.7 [degF] Albert KHALILSLIN [facility] 08-26-2023 16:12-0400 Heart rate 75 /min Albert MANZOLIN [facility] 08-26-2023 16:12-0400 Respiratory rate 15 /min Albert MANZOLIN [facility] 08-26-2023 15:26-0400 Body temperature 97.7 [degF] Albert RODAS [facility] 08-26-2023 15:26-0400 Mean blood pressure 95 mm[Hg] Albert RODAS [facility] 08-26-2023 15:13-0400 Mean blood pressure 89 mm[Hg] Albertmikal KHALILSLIN [facility] 08-26-2023 03:58-0400 Heart rate 81 /min Ablert MANZOLIN [facility] 08-12-2023 09:35-0400 Body height 157.48 cm DO Parris Thomas Work Phone: [facility] 08-12-2023 09:35-0400 Body mass index (BMI) [Ratio] 33.5 kg/m2 DO Parris Thomas Work Phone: [facility] 08-12-2023 09:35-0400 Body temperature 97.3 [degF] DO Parris Thomas Work Phone: [facility] 08-12-2023 09:35-0400 Body weight 83 kg DO Parris Thomas Work Phone: [facility] 08-12-2023 09:35-0400 Diastolic blood pressure 70 mm[Hg] DO Parris Thomas Work Phone: [facility] 08-12-2023 09:35-0400 Heart rate 77 /min DO Parris Thomas Work Phone: [facility] 08-12-2023 09:35-0400 Respiratory rate 20 /min DO Parris Thomas Work Phone: [facility] 08-12-2023 09:35-0400 SaO2% (BldA) [Mass fraction] 98 % DO Parris Thomas Work Phone: [facility] 08-12-2023 09:35-0400 Systolic blood pressure 130 mm[Hg] DO Parris Thomas Work Phone: [facility] 07-12-2023 11:05-0400 Body height 157.48 cm DO Parris Thomas Work Phone: [facility] 07-12-2023 11:05-0400 Body mass index (BMI) [Ratio] 32.1 kg/m2 DO Parris Thomas Work Phone: [facility] 07-12-2023 11:05-0400 Body weight 79.83 kg DO Parris Thomas Work Phone: [facility] 07-12-2023 11:05-0400 SaO2% (BldA) [Mass fraction] 99 % DO Parris Thomas Work Phone: [facility] 06-20-2023 09:51-0400 Body temperature 98.1 [degF] DO Parris Thomas Work Phone: [facility] 06-20-2023 09:51-0400 Diastolic blood pressure 68 mm[Hg] DO Parris Thomas Work Phone: [facility] 06-20-2023 09:51-0400 Heart rate 76 /min DO Parris Thomas Work Phone: [facility] 06-20-2023 09:51-0400 SaO2% (BldA) [Mass fraction] 99 % DO Parris Thomas Work Phone: [facility] 06-20-2023 09:51-0400 Systolic blood pressure 108 mm[Hg] DO Parris Thomas Work Phone: [facility] 05-22-2023 09:25-0500 Body height 157.48 cm DO Parris Thomas Work Phone: [facility] 05-22-2023 09:25-0500 Body mass index (BMI) [Ratio] 31.6 kg/m2 DO Parris Thomas Work Phone: [facility] 05-22-2023 09:25-0500 Body weight 78.47 kg DO Parris Thomas Work Phone: [facility] 05-22-2023 09:20-0500 Body temperature 97.6 [degF] DO Parris Thomas Work Phone: [facility] 05-22-2023 09:20-0500 Diastolic blood pressure 82 mm[Hg] DO Parris Thomas Work Phone: [facility] 05-22-2023 09:20-0500 Heart rate 92 /min DO Parris Thomas Work Phone: [facility] 05-22-2023 09:20-0500 Respiratory rate 20 /min DO Parris Thomas Work Phone: [facility] 05-22-2023 09:20-0500 Systolic blood pressure 126 mm[Hg] DO Parris Thomas Work Phone: [facility] 05-14-2023 09:30-0500 Body height 157.48 cm Zuleyka Adame [employer] [facility] 05-14-2023 09:30-0500 Body mass index (BMI) [Ratio] 32 kg/m2 Zuleyka Ross Other [employer] [facility] 05-14-2023 09:30-0500 Body temperature 97.2 [degF] Zuleyka Ross Other [employer] [facility] 05-14-2023 09:30-0500 Body weight 79.38 kg Zuleyka Ross Other [employer] [facility] 05-14-2023 09:30-0500 Diastolic blood pressure 68 mm[Hg] Zuleyka Ross Other [employer] [facility] 05-14-2023 09:30-0500 Systolic blood pressure 141 mm[Hg] Zuleyka Ross Other [employer] [facility] 05-08-2023 08:58-0500 Inhaled oxygen flow rate 4 L/min DO Parris Thomas Work Phone: [facility] 03-13-2023 10:30-0500 Body height 157.48 cm Parris Thomas Other [employer] Other 03-13-2023 10:30-0500 Body mass index (BMI) [Ratio] 31.46 kg/m2 Parris Thomas Other [employer] Other 03-13-2023 10:30-0500 Body temperature 97.6 [degF] Parris Thomas Other [employer] Other 03-13-2023 10:30-0500 Body weight 78.02 kg Parris Thomas Other [employer] Other 03-13-2023 10:30-0500 Diastolic blood pressure 62 mm[Hg] Parris Thomas Other [employer] Other 03-13-2023 10:30-0500 Respiratory rate 18 /min Parris Thomas Other [employer] Other 03-13-2023 10:30-0500 SaO2% (BldA) [Mass fraction] 96 % Parris Thomas Other [employer] Other 03-13-2023 10:30-0500 Systolic blood pressure 102 mm[Hg] Parris Thomas Other [employer] Other 03-12-2023 09:30-0500 Body height 157.48 cm Zuleyka Linaresraw Other [employer] Other 03-12-2023 09:30-0500 Body mass index (BMI) [Ratio] 31.64 kg/m2 Zuleyka Cody Other [employer] Other 03-12-2023 09:30-0500 Body temperature 97.1 [degF] Zuleyka Linaresraw Other [employer] Other 03-12-2023 09:30-0500 Body weight 78.47 kg Zuleyka Linraesraw Other [employer] Other 03-12-2023 09:30-0500 Diastolic blood pressure 62 mm[Hg] Zuleyka Ross Other [employer] Other 03-12-2023 09:30-0500 Systolic blood pressure 124 mm[Hg] Zuleyka Ross Other [employer] Other 02-11-2023 09:30-0500 Body height 157.48 cm Parris Thomas Other [employer] Other 02-11-2023 09:30-0500 Body temperature 97.3 [degF] Parris Thomas Other [employer] Other 02-11-2023 09:30-0500 Diastolic blood pressure 78 mm[Hg] Parris Thomas Other [employer] Other 02-11-2023 09:30-0500 Respiratory rate 22 /min Parris Thomas Other [employer] Other 02-11-2023 09:30-0500 SaO2% (BldA) [Mass fraction] 97 % Parris Thomas Other [employer] Other 02-11-2023 09:30-0500 Systolic blood pressure 124 mm[Hg] Parris Thomas Other [employer] Other 02-01-2023 10:15-0400 Body height 157.48 cm Parris Thomas Other [employer] Other 02-01-2023 10:15-0400 Body temperature 96.9 [degF] Parris Thomas Other [employer] Other 02-01-2023 10:15-0400 Diastolic blood pressure 80 mm[Hg] Parris Thomas Other [employer] Other 02-01-2023 10:15-0400 Respiratory rate 22 /min Parris Thomas Other [employer] Other 02-01-2023 10:15-0400 SaO2% (BldA) [Mass fraction] 97 % Parris Thomas Other [employer] Other 02-01-2023 10:15-0400 Systolic blood pressure 118 mm[Hg] Parris Thomas Other [employer] Other 01-22-2023 17:43-0400 Body height 157.48 cm MD Cheko Rolon Jr Work Phone: [facility] 01-22-2023 17:43-0400 Body temperature 98.5 [degF] MD Cheko Rolon Jr Work Phone: [facility] 01-22-2023 17:43-0400 Body weight 78.47 kg MD Cheko Rolon Jr Work Phone: [facility] 01-22-2023 17:43-0400 Diastolic blood pressure 63 mm[Hg] MD Cheko Rolon Jr Work Phone: [facility] 01-22-2023 17:43-0400 Heart rate 81 /min MD Cheko Rolon Jr Work Phone: [facility] 01-22-2023 17:43-0400 Inhaled oxygen flow rate 4 L/min MD Cheko Rolon Jr Work Phone: [facility] 01-22-2023 17:43-0400 Respiratory rate 20 /min MD Cheko Rolon Jr Work Phone: [facility] 01-22-2023 17:43-0400 SaO2% (BldA) [Mass fraction] 95 % MD Cheko Rolon Jr Work Phone: [facility] 01-22-2023 17:43-0400 Systolic blood pressure 140 mm[Hg] MD Cheko Rolon Jr Work Phone: [facility] 01-18-2023 01:35-0400 Diastolic blood pressure 69 mm[Hg] MD Cheko Rolon Jr Work Phone: [facility] 01-18-2023 01:35-0400 Heart rate 84 /min MD Cheko Rolon Jr Work Phone: [facility] 01-18-2023 01:35-0400 Inhaled oxygen flow rate 4 L/min MD Cheko Rolon Jr Work Phone: [facility] 01-18-2023 01:35-0400 Respiratory rate 18 /min MD Cheko Rolon Jr Work Phone: [facility] 01-18-2023 01:35-0400 SaO2% (BldA) [Mass fraction] 91 % MD Cheko Rolon Jr Work Phone: [facility] 01-18-2023 01:35-0400 Systolic blood pressure 106 mm[Hg] MD Cheko Rolon Jr Work Phone: [facility] 01-17-2023 22:05-0400 Body height 157.48 cm MD Cheko Rolon Jr Work Phone: [facility] 01-17-2023 22:05-0400 Body temperature 97.3 [degF] MD Cheko Rolon Jr Work Phone: [facility] 01-17-2023 22:05-0400 Body weight 78.47 kg MD Cheko Rolon Jr Work Phone: [facility] 01-10-2023 11:00-0400 Body height 157.48 cm Zuleyka Ross Other [facility] [employer] Other 01-10-2023 11:00-0400 Body mass index (BMI) [Ratio] 31.64 kg/m2 Zuleyka Ross Other [employer] Other 01-10-2023 11:00-0400 Body temperature 97.2 [degF] Zuleyka Ross Other [employer] Other 01-10-2023 11:00-0400 Body weight 78.47 kg Zuleyka Ross Other [employer] Other 01-10-2023 11:00-0400 Diastolic blood pressure 68 mm[Hg] Zuleyka Ross Other [employer] Other 01-10-2023 11:00-0400 Systolic blood pressure 139 mm[Hg] Zuleyka Ross Other [employer] Other 12-27-2022 13:45-0400 Body height 157.48 cm Parris Thomas Other [employer] Other 12-27-2022 13:45-0400 Body mass index (BMI) [Ratio] 30.91 kg/m2 Parris Thomas Other [employer] Other 12-27-2022 13:45-0400 Body weight 76.66 kg Parris Thomas Other [employer] Other 12-27-2022 13:45-0400 Respiratory rate 20 /min Parris Thomas Other [employer] Other 11-29-2022 17:00-0400 Hourly Rounding Hasan AMIR [facility] 11-29-2022 17:00-0400 Promise to Return Hasan AMIR [facility] 11-29-2022 16:46-0400 Heart rate 77 /min Hasan AMIR [facility] 11-29-2022 16:46-0400 Respiratory rate 20 /min Hasan AMIR [facility] 11-29-2022 16:46-0400 SaO2% (BldA) [Mass fraction] 92 % Hasan AMIR [facility] 11-29-2022 16:37-0400 Heart rate 77 /min Hasan AMIR [facility] 11-29-2022 16:37-0400 SaO2% (BldA) [Mass fraction] 94 % Hasan AMIR [facility] 11-29-2022 16:37-0400 Diastolic blood pressure 82 mm[Hg] Hasan [facility]IR [facility] 11-29-2022 16:37-0400 Mean blood pressure 104 mm[Hg] Hasan [facility]IR [facility] 11-29-2022 16:37-0400 Systolic blood pressure 150 mm[Hg] [facility]an [facility]IR [facility] 11-29-2022 16:37-0400 Body temperature 97.88 [degF] [facility]IR [facility] 11-29-2022 16:00-0400 Hourly Rounding Hasan AMIR [facility] 11-29-2022 16:00-0400 Promise to Return Hasan AMIR [facility] 11-29-2022 15:20-0400 Hourly Rounding Hasan AMIR [facility] 11-29-2022 15:20-0400 Promise to Return Hasan AMIR [facility] 11-29-2022 12:22-0400 Heart rate 72 /min Hasan AMIR [facility] 11-29-2022 12:22-0400 Respiratory rate 20 /min Hasan [facility]IR [facility] 11-29-2022 12:04-0400 Respiratory rate 16 /min Hasan [facility] 11-29-2022 12:04-0400 SaO2% (BldA) [Mass fraction] 91 % Hasan AMIR [facility] 11-29-2022 11:41-0400 Blood Pressure Location Hasan AMIR [facility] 11-29-2022 11:41-0400 Body temperature 97.34 [degF] [facility] 11-29-2022 11:41-0400 Diastolic blood pressure 71 mm[Hg] Hasan AMIR [facility] 11-29-2022 11:41-0400 Mean blood pressure 91 mm[Hg] Hasan [facility]IR [facility] 11-29-2022 11:41-0400 Systolic blood pressure 130 mm[Hg] Hasan [facility]IR [facility] 11-29-2022 07:09-0400 Diastolic blood pressure 99 mm[Hg] Hasan AMIR [facility] 11-29-2022 07:09-0400 Mean blood pressure 123 mm[Hg] Hasan [facility]IR [facility] 11-29-2022 07:09-0400 Systolic blood pressure 170 mm[Hg] Hasan [facility]IR [facility] 11-29-2022 07:09-0400 Body temperature 97.7 [degF] [facility] 11-29-2022 00:30-0400 Blood Pressure Location [facility]an [facility]IR [facility] 11-29-2022 00:30-0400 Body temperature 98.24 [degF] [facility] 11-29-2022 00:30-0400 Mean blood pressure 103 mm[Hg] Hasan [facility]IR [facility] 11-28-2022 20:00-0400 Body temperature 97.88 [degF] [facility] 11-28-2022 20:00-0400 Heart rate 82 /min Hasan [facility]IR [facility] 11-28-2022 20:00-0400 Mean blood pressure 104 mm[Hg] Hasan [facility]IR [facility] 11-28-2022 16:58-0400 Mean blood pressure 92 mm[Hg] Hasan [facility]IR [facility] 11-28-2022 16:58-0400 Body temperature 97.7 [degF] [facility] 11-26-2022 01:27-0400 Heart rate 67 /min Hasan [facility]IR [facility] 11-26-2022 00:39-0400 Respiratory rate 21 /min Hasan [facility] 11-26-2022 00:00-0400 Respiratory rate 23 /min Hasan [facility] 11-25-2022 16:34-0400 SaO2% (BldA) [Mass fraction] 91.8 % Hasan AMIR [facility] Resp [facility] SS 11-25-2022 14:53-0400 Heart rate 97 /min Hasan AMIR [facility] 11-05-2022 13:00-0400 Body height 157.48 cm Parris Thomas Other [employer] Other 11-05-2022 13:00-0400 Body mass index (BMI) [Ratio] 30.54 kg/m2 Parris Thomas Other [employer] Other 11-05-2022 13:00-0400 Body temperature 97.5 [degF] Parris Thomas Other [employer] Other 11-05-2022 13:00-0400 Body weight 75.75 kg Parris Thomas Other [employer] Other 11-05-2022 13:00-0400 Diastolic blood pressure 60 mm[Hg] Parris Thomas Other [employer] Other 11-05-2022 13:00-0400 Respiratory rate 20 /min Parris Thomas Other [employer] Other 11-05-2022 13:00-0400 SaO2% (BldA) [Mass fraction] 96 % Parris Thomas Other [employer] Other 11-05-2022 13:00-0400 Systolic blood pressure 100 mm[Hg] Parris Thomas Other [employer] Other 10-24-2022 09:31-0400 Blood Pressure Location Ravihar Borden [facility] 10-24-2022 09:31-0400 Diastolic blood pressure 70 mm[Hg] Yung Mishram [facility] 10-24-2022 09:31-0400 Heart rate 78 /min Bashar Borden [facility] 10-24-2022 09:31-0400 SaO2% (BldA) [Mass fraction] 95 % Bashar Borden [facility] 10-24-2022 09:31-0400 Systolic blood pressure 130 mm[Hg] Basthor Mishram [facility] 09-07-2022 09:46-0400 Blood Pressure Location Basthor Mishram [facility] 09-07-2022 09:46-0400 Diastolic blood pressure 67 mm[Hg] Basthor Mishram [facility] 09-07-2022 09:46-0400 Heart rate 86 /min Yung Mishram [facility] 09-07-2022 09:46-0400 SaO2% (BldA) [Mass fraction] 97 % Yung Mishram [facility] 09-07-2022 09:46-0400 Systolic blood pressure 106 mm[Hg] Yung Mishram [facility] 09-04-2022 08:00-0400 Body height 157.48 cm [employer] Other [employer] Other 09-04-2022 08:00-0400 Body mass index (BMI) [Ratio] 30.91 kg/m2 Parris Thomas Other [employer] Other 09-04-2022 08:00-0400 Body temperature 96.9 [degF] [employer] Other [employer] Other 09-04-2022 08:00-0400 Body weight 76.66 kg Parris Thomas Other [employer] Other 09-04-2022 08:00-0400 Diastolic blood pressure 82 mm[Hg] Parris Thomas Other [employer] Other 09-04-2022 08:00-0400 Respiratory rate 20 /min Parris Thomas Other [employer] Other 09-04-2022 08:00-0400 SaO2% (BldA) [Mass fraction] 98 % Parris Thomas Other [employer] Other 09-04-2022 08:00-0400 Systolic blood pressure 128 mm[Hg] Parris Thomas Other [employer] Other 08-18-2022 13:05-0400 Hourly Rounding Hasan AMIR [facility] 08-18-2022 13:05-0400 Promise to Return Hasan AMIR [facility] 08-18-2022 12:32-0400 Heart rate 78 /min Hasan AMIR [facility] 08-18-2022 12:32-0400 Respiratory rate 16 /min Hasan AMIR [facility] 08-18-2022 12:32-0400 SaO2% (BldA) [Mass fraction] 99 % Hasan AMIR [facility] 08-18-2022 12:22-0400 Heart rate 75 /min Hasan AMIR [facility] 08-18-2022 12:22-0400 Respiratory rate 18 /min Hasan AMIR [facility] 08-18-2022 12:22-0400 SaO2% (BldA) [Mass fraction] 98 % Hasan AMIR [facility] 08-18-2022 12:00-0400 Hourly Rounding Hasan AMIR [facility] 08-18-2022 12:00-0400 Promise to Return Hasan AMIR [facility] 08-18-2022 11:43-0400 Heart rate 80 /min Hasan AMIR [facility] 08-18-2022 11:43-0400 SaO2% (BldA) [Mass fraction] 96 % Hasan AMIR [facility] 08-18-2022 11:43-0400 Body temperature 97.7 [degF] Hasan AMIR [facility] 08-18-2022 11:43-0400 Diastolic blood pressure 80 mm[Hg] Hasan AMIR [facility] 08-18-2022 11:43-0400 Mean blood pressure 98 mm[Hg] Hasan AMIR [facility] 08-18-2022 11:43-0400 Systolic blood pressure 134 mm[Hg] Hasan AMIR [facility] 08-18-2022 11:00-0400 Hourly Rounding Hasan AMIR [facility] 08-18-2022 11:00-0400 Promise to Return Hasan AMIR [facility] 08-18-2022 08:21-0400 Respiratory rate 16 /min Hasan AMIR [facility] 08-18-2022 07:33-0400 Body temperature 97.16 [degF] Hasan AMIR [facility] 08-18-2022 07:33-0400 Diastolic blood pressure 74 mm[Hg] Hasan AMIR [facility] 08-18-2022 07:33-0400 Mean blood pressure 94 mm[Hg] Hasan AMIR [facility] 08-18-2022 07:33-0400 Systolic blood pressure 133 mm[Hg] Hasan AMIR [facility] 08-17-2022 22:00-0400 Body temperature 97.88 [degF] Hasan [facility]IR [facility] 08-17-2022 22:00-0400 Diastolic blood pressure 72 mm[Hg] Hasan AMIR [facility] 08-17-2022 22:00-0400 Systolic blood pressure 123 mm[Hg] Hasan AMIR [facility] 08-17-2022 17:30-0400 Body temperature 98.06 [degF] [facility]an [facility] 08-17-2022 17:29-0400 Mean blood pressure 74 mm[Hg] Hasan AMIR [facility] 08-17-2022 12:00-0400 Blood Pressure Location Hasan AMIR [facility] 08-17-2022 02:14-0400 Body temperature 97.34 [degF] Hasan [facility]IR [facility] 08-17-2022 02:14-0400 Mean blood pressure 105 mm[Hg] Hasan AMIR [facility] 08-16-2022 11:15-0400 Mean blood pressure 85 mm[Hg] Hasan AMIR [facility] 08-16-2022 08:51-0400 FIO2 50 % Hasan AMIR [facility] 08-16-2022 08:00-0400 Mean blood pressure 93 mm[Hg] Hasan AMIR [facility] 08-16-2022 02:48-0400 FIO2 50 % Hasan AMIR [facility] 08-15-2022 16:00-0400 Blood Pressure Location Hasan AMIR [facility] 08-15-2022 16:00-0400 Heart rate 92 /min Hasan AMIR [facility] 08-15-2022 15:23-0400 Respiratory rate 22 /min Hasan AMIR [facility] 08-15-2022 15:06-0400 Respiratory rate 26 /min Hasan AMIR [facility] 08-15-2022 14:07-0400 Respiratory rate 24 /min Hasan AMIR [facility] 08-15-2022 11:47-0400 SaO2% (BldA) [Mass fraction] 94.2 % Hasan AMIR [facility] Resp [facility] 08-15-2022 11:39-0400 Heart rate 88 /min Hasan AMIR [facility] 07-10-2022 16:15-0400 Body height 157.48 cm Parris Thomas Other [employer] Other 07-10-2022 16:15-0400 Body mass index (BMI) [Ratio] 32.37 kg/m2 Parris Thomas Other [employer] Other 07-10-2022 16:15-0400 Body temperature 97.3 [degF] Parris Thomas Other [employer] Other 07-10-2022 16:15-0400 Body weight 80.29 kg Parris Thomas Other [employer] Other 07-10-2022 16:15-0400 Diastolic blood pressure 78 mm[Hg] Parris Thomas Other [employer] Other 07-10-2022 16:15-0400 Respiratory rate 20 /min Parris Thomas Other [employer] Other 07-10-2022 16:15-0400 SaO2% (BldA) [Mass fraction] 94 % Parris Thomas Other [employer] Other 07-10-2022 16:15-0400 Systolic blood pressure 118 mm[Hg] Parris Thomas Other [employer] Other 04-20-2022 09:30-0500 Body height 157.48 cm Parris Thomas Other [employer] Other 04-20-2022 09:30-0500 Body mass index (BMI) [Ratio] 32 kg/m2 Parris Thomas Other [employer] Other 04-20-2022 09:30-0500 Body temperature 97.8 [degF] Parris Thomas Other [employer] Other 04-20-2022 09:30-0500 Body weight 79.38 kg Parris Thomas Other [employer] Other 04-20-2022 09:30-0500 Diastolic blood pressure 62 mm[Hg] Parris Thomas Other [employer] Other 04-20-2022 09:30-0500 Respiratory rate 20 /min Parris Thomas Other [employer] Other 04-20-2022 09:30-0500 SaO2% (BldA) [Mass fraction] 95 % Parris Thomas Other [employer] Other 04-20-2022 09:30-0500 Systolic blood pressure 110 mm[Hg] Parris Thomas Other [employer] Other 03-28-2022 09:00-0500 Body height 157.48 cm Parris Thomas Other [employer] Other 03-28-2022 09:00-0500 Body mass index (BMI) [Ratio] 32.19 kg/m2 Parris Thomas Other [employer] Other 03-28-2022 09:00-0500 Body temperature 97.2 [degF] Parris Thomas Other [employer] Other 03-28-2022 09:00-0500 Body weight 79.83 kg Parris Thomas Other [employer] Other 03-28-2022 09:00-0500 Diastolic blood pressure 80 mm[Hg] Parris Thomas Other [employer] Other 03-28-2022 09:00-0500 Respiratory rate 20 /min Parris Thomas Other [employer] Other 03-28-2022 09:00-0500 SaO2% (BldA) [Mass fraction] 96 % Parris Thomas Other [employer] Other 03-28-2022 09:00-0500 Systolic blood pressure 128 mm[Hg] Parris Thomas Other [employer] Other 02-05-2022 10:30-0400 Body height 157.48 cm Parris Thomas Other [employer] Other 02-05-2022 10:30-0400 Body mass index (BMI) [Ratio] 32.37 kg/m2 Parris Thomas Other [employer] Other 02-05-2022 10:30-0400 Body temperature 97.5 [degF] Parris Thomas Other [employer] Other 02-05-2022 10:30-0400 Body weight 80.29 kg Parris Thomas Other [employer] Other 02-05-2022 10:30-0400 Diastolic blood pressure 68 mm[Hg] Parris Thomas Other [employer] Other 02-05-2022 10:30-0400 Respiratory rate 20 /min Parris Thomas Other [employer] Other 02-05-2022 10:30-0400 SaO2% (BldA) [Mass fraction] 96 % Parris Thomas Other [employer] Other 02-05-2022 10:30-0400 Systolic blood pressure 98 mm[Hg] Parris Thomas Other [employer] Other 01-03-2022 14:00-0400 Body height 157.48 cm Parris Thomas Other [employer] Other 01-03-2022 14:00-0400 Body mass index (BMI) [Ratio] 31.46 kg/m2 Parris Thomas Other [employer] Other 01-03-2022 14:00-0400 Body temperature 96.8 [degF] Parris Thomas Other [employer] Other 01-03-2022 14:00-0400 Body weight 78.02 kg Parris Thomas Other [employer] Other 01-03-2022 14:00-0400 Diastolic blood pressure 74 mm[Hg] Parris Thomas Other [employer] Other 01-03-2022 14:00-0400 Respiratory rate 20 /min Parris Thomas Other [employer] Other 01-03-2022 14:00-0400 SaO2% (BldA) [Mass fraction] 97 % Parris Thomas Other [employer] Other 01-03-2022 14:00-0400 Systolic blood pressure 114 mm[Hg] Parris Thomas Other [employer] Other 10-06-2021 12:30-0400 Body height 157.48 cm Parris Thomas Other [employer] Other 10-06-2021 12:30-0400 Body mass index (BMI) [Ratio] 31.27 kg/m2 Parris Thomas Other [employer] Other 10-06-2021 12:30-0400 Body temperature 97.8 [degF] Parris Thomas Other [employer] Other 10-06-2021 12:30-0400 Body weight 77.57 kg Parris Thomas Other [employer] Other 10-06-2021 12:30-0400 Diastolic blood pressure 64 mm[Hg] Parris Thomas Other [employer] Other 10-06-2021 12:30-0400 Respiratory rate 20 /min Parris Thomas Other [employer] Other 10-06-2021 12:30-0400 SaO2% (BldA) [Mass fraction] 97 % Parris Thomas Other [employer] Other 10-06-2021 12:30-0400 Systolic blood pressure 106 mm[Hg] Parris Thomas Other [employer] Other 09-28-2021 07:53-0400 Body height 154.94 cm DO Parris Thomas Work Phone: [facility] 09-28-2021 07:53-0400 Body weight 78.47 kg DO Parris Thomas Work Phone: [facility] 01-24-2021 10:00-0400 Body height 157.48 cm Parris Thomas Other [employer] Other 01-24-2021 10:00-0400 Body mass index (BMI) [Ratio] 31.09 kg/m2 Parris Thomas Other [employer] Other 01-24-2021 10:00-0400 Body temperature 96.4 [degF] Parris Thomas Other [employer] Other 01-24-2021 10:00-0400 Body weight 77.11 kg Parris Thomas Other [employer] Other 01-24-2021 10:00-0400 Diastolic blood pressure 64 mm[Hg] Parris Thomas Other [employer] Other 01-24-2021 10:00-0400 Respiratory rate 20 /min Parris Thomas Other [employer] Other 01-24-2021 10:00-0400 SaO2% (BldA) [Mass fraction] 97 % Parris Thomas Other [employer] Other 01-24-2021 10:00-0400 Systolic blood pressure 110 mm[Hg] Parris Thomas Other [employer] Other Encounters Encounter Date Encounter Type Care Provider Facility Start: 11-15-2023 End: 11-15-2023 ambulatory DO Parris Quiles Thomas Work Phone: [facility] Work Phone: Start: 11-15-2023 End: 11-15-2023 Patient encounter procedure DO Parris Thomas Work Phone: [facility] Work Phone: Start: 11-07-2023 Non-patient / Non-visit DO Set h Thomas Work Phone: [facility] Work Phone: Start: 11-04-2023 End: 11-04-2023 ambulatory Ru Ferrera MD Facility:[facility] Start: 10-28-2023 End: 10-28-2023 ambulatory Ru Ferrera MD Facility:[facility] Start: 09-24-2023 End: 09-24-2023 ambulatory DO Parris M. Thomas Work Phone: [facility] Work Phone: Start: 09-24-2023 End: 09-24-2023 Patient encounter procedure DO Parris Thomas Work Phone: [facility] Work Phone: Start: 09-23-2023 End: 09-23-2023 ambulatory DO Parris M. Thomas Work Phone: [facility] Work Phone: Start: 09-23-2023 End: 09-23-2023 Patient encounter procedure DO Parris Thomas Work Phone: [facility] Work Phone: Start: 09-13-2023 Telephone encounter Mara brand MD Work Phone: Urology Comment on above: Patient Question Start: 09-12-2023 End: 09-12-2023 ambulatory PARRIS HENSLEY THOMAS Facility:[facility] Start: 09-12-2023 End: 09-12-2023 Patient encounter procedure Mara Monroy MD Work Phone: Urology Comment on above: Urge urinary inconti nence (Primary Dx); Pelvic pain in female; Nocturia Start: 09-11-2023 End: 09-11-2023 Emergency department patient visit PARRIS GUZMAN Facility:[facility] Start: 09-11-2023 Non-patient / Non-visit DO Arcadio Guzman Work Phone: [facility] Work Phone: Start: 09-05-2023 ambulatory PARRIS GUZMAN Facility :[facility] Start: 09-05-2023 End: 09-05-2023 Patient encounter procedure PARRIS GUZMAN [facility] Start: 09-04-2023 End: 09-04-2023 Departed Referred DO Parris Guzman Work Phone: [facility] [place] Work Phone: Start: 09-04-2023 End: 09-04-2023 ambulatory DO Parris Guzman Work Phone: [facility] Work Phone: Start: 09-04-2023 End: 09-04-2023 Patient encounter procedure [facility] Work Phone: Start: 08-26-2023 End: 08-27-2023 ambulatory Albert RODAS Facility:[facility] Start: 08-26-2023 End: 08-27-2023 ambulatory Gaston Horton Facility:[facility] Start: 08-26-2023 Emergency department patient visit Yosvany Villeda Facility:[facility] Start: 08-26-2023 End: 08-27-2023 Observation Albert RODAS [facility] Start: 08-16-2023 Non-patient / Non-visit [facility] Work Phone: Start: 08-12-2023 End: 08-12-2023 ambulatory DO Parris M. Thomas Work Phone: [facility] Work Phone: Start: 08-12-2023 End: 08-12-2023 Patient encounter procedure DO Parris Thomas Work Phone: [facility] Phys[facility] Work Phone: Start: 07-25-2023 Non-patient / Non-visit DO Set h Thomas Work Phone: [facility] Physician [facility] [place] Work Phone: Start: 07-24-2023 Non-patient / Non-visit DO Set h Thomas Work Phone: [facility] [employer] Work Phone: Start: 07-17-2023 End: 07-17-2023 ambulatory DO Parris M. Thomas Work Phone: [facility] Work Phone: Start: 07-17-2023 End: 07-17-2023 Patient encounter procedure DO Parris Thomas Work Phone: [facility] Physician [facility] Work Phone: Start: 07-16-2023 Non-patient / Non-visit DO Set h Thomas Work Phone: [facility] Physician [facility] [place] [employer] Work Phone: Start: 07-12-2023 End: 07-12-2023 ambulatory DO Parris M. Thomas Work Phone: [facility] Work Phone: Start: 07-12-2023 End: 07-12-2023 Patient encounter procedure DO Parris Thomas Work Phone: [facility] Physician [facility] Work Phone: Start: 06-20-2023 End: 06-20-2023 ambulatory DO Parris M. Thomas Work Phone: [facility] Work Phone: Start: 06-20-2023 End: 06-20-2023 Patient encounter procedure DO Parrisnick DiazThomas Work Phone: [facility] [place] Work Phone: Start: 05-22-2023 End: 05-22-2023 ambulatory DO Parris M. Thomas Work Phone: [facility] Work Phone: Start: 05-22-2023 End: 05-22-2023 Discharged Recurring DO Parris Thomas Work Phone: [facility] [place] Work Phone: Start: 05-22-2023 Registered Recurring DO Parris R uggles Work Phone: [facility] [place] Work Phone: Start: 05-14-2023 End: 05-14-2023 ambulatory Zuleyka Cody Other [employer] Other Start: 05-14-2023 Office outpatient vi sit 15 minutes Zuleyka Ross [facility] Start: 05-07-2023 End: 05-07-2023 ambulatory Zuleyka Cody Other [employer] Other Start: 05-07-2023 Telephone encounter Zuleyka Ross [facility] Start: 04-17-2023 End: 04-17-2023 ambulatory Zuleyka Ross Other [employer] Other Start: 04-17-2023 Telephone encounter Zuleyka Cody [facility] Start: 04-11-2023 End: 04-11-2023 ambulatory Parris Thomas Other [employer] Other Start: 04-11-2023 Telephone encounter Parris Thomas [facility] Start: 04-03-2023 End: 04-03-2023 ambulatory Zuleyka Cody Other [employer] Other Start: 04-03-2023 Telephone encounter Zuleyka Cody [facility] Start: 03-15-2023 End: 03-15-2023 ambulatory Parris Thomas Other [employer] Other Start: 03-15-2023 Telephone encounter Parris Thomas [facility] Start: 03-13-2023 End: 03-13-2023 ambulatory Parris Thomas Other [employer] Other Start: 03-13-2023 Office outpatient vi sit 15 minutes Parris Thomas [facility] Start: 03-13-2023 Telephone encounter Zuleyka Cody [facility] Start: 03-12-2023 End: 03-12-2023 ambulatory Zuleyka Cody Other [employer] Other Start: 03-12-2023 Office outpatient vi sit 25 minutes Zuleyka Cody [facility] Start: 03-12-2023 Telephone encounter Zuleyka Cody [facility] Start: 03-06-2023 End: 03-06-2023 ambulatory Zuleyka Cody Other [employer] Other Start: 03-06-2023 Telephone encounter Zuleyka Cody [facility] Start: 02-22-2023 End: 02-22-2023 ambulatory Zuleyka Cody Other [employer] Other Start: 02-22-2023 Telephone encounter Zuleyka Cody [facility] Start: 02-21-2023 End: 02-21-2023 ambulatory Parris Thomas Other [employer] Other Start: 02-21-2023 Telephone encounter Parris Thomas [facility] Start: 02-14-2023 End: 02-14-2023 ambulatory Zuleyka Ross Other [employer] Other Start: 02-14-2023 Telephone encounter Zuleyka Ross [facility] Start: 02-12-2023 End: 02-12-2023 ambulatory Parris Thomas Other [employer] Other Start: 02-12-2023 Telephone encounter Parris Thomas [facility] Start: 02-11-2023 End: 02-11-2023 ambulatory Parris Thomas Other [employer] Other Start: 02-11-2023 Office outpatient vi sit 25 minutes Parris Thomas [facility] Start: 02-07-2023 End: 02-07-2023 ambulatory Zuleyka Ross Other [employer] Other Start: 02-07-2023 Telephone encounter Zuleyka Ross [facility] Start: 02-01-2023 End: 02-01-2023 ambulatory Parris Thomas Other [employer] Other Start: 02-01-2023 Office outpatient vi sit 25 minutes Parris Thomas [facility] Start: 01-31-2023 Telephone encounter Zuleyka Ross [facility] Start: 01-31-2023 End: 01-31-2023 Patient encounter procedure MD Cheko Rolon Jr Work Phone: [facility] [address] Work Phone: Start: 01-31-2023 End: 01-31-2023 ambulatory MD Cheko Rolon Jr Work Phone: [facility] Work Phone: Start: 01-29-2023 End: 01-29-2023 ambulatory Parris Thomas Other [employer] Other Start: 01-29-2023 Telephone encounter Parris Thomas [facility] Start: 01-23-2023 End: 01-23-2023 ambulatory Parris Thomas Other [employer] Other Start: 01-23-2023 Telephone encounter Parris Thomas [facility] Start: 01-22-2023 End: 01-22-2023 Emergency department patient visit MD Cheko Rolon Jr Work Phone: [facility] Work Phone: Start: 01-22-2023 End: 01-22-2023 ambulatory Parris Thomas Other [employer] Other Start: 01-22-2023 Telephone encounter Praris Thomas [facility] Start: 01-21-2023 End: 01-21-2023 ambulatory Parris Thomas Other [employer] Other Start: 01-21-2023 Telephone encounter Parris Thomas [facility] Start: 01-18-2023 End: 01-18-2023 ambulatory Zuleyka Ross Other [employer] Other Start: 01-18-2023 Telephone encounter Zuleyka Ross [facility] Start: 01-17-2023 End: 01-18-2023 Emergency department patient visit MD Cheko Rolon Jr Work Phone: [facility] Work Phone: Start: 01-15-2023 End: 01-15-2023 ambulatory Parris Thomas Other [employer] Other Start: 01-15-2023 Telephone encounter Parris Thomas [facility] Start: 01-10-2023 End: 01-10-2023 ambulatory Zuleyka Ross Other [employer] Other Start: 01-10-2023 Office outpatient ne w 60 minutes Zuleykarakesh Montanezw [facility] Start: 01-07-2023 End: 01-07-2023 ambulatory Parris Thomas Other [employer] Other Start: 01-07-2023 Telephone encounter Parris Thomas [facility] Start: 01-02-2023 End: 01-02-2023 ambulatory Parris Thomas Other [employer] Other Start: 01-02-2023 Telephone encounter Parris Thomas [facility] Start: 12-31-2022 End: 12-31-2022 ambulatory Zuleyka Ross Other [employer] Other Start: 12-31-2022 Telephone encounter Zuleyka Montanezw [facility] Start: 12-27-2022 End: 12-27-2022 ambulatory Parris Thomas Other [employer] Other Start: 12-27-2022 Office outpatient vi sit 40 minutes Parris Thomas [facility] Start: 12-27-2022 Telephone encounter Parris Thomas [facility] Start: 12-20-2022 End: 12-20-2022 ambulatory Parris Thomas Other [employer] Other Start: 12-20-2022 Office outpatient vi sit 15 minutes Parris Thomas [facility] Start: 12-18-2022 Telephone encounter Parris Thomas [facility] Start: 12-18-2022 End: 12-18-2022 ambulatory [facility] [employer] Other Start: 12-18-2022 End: 12-18-2022 Lab Drop off [facility] Start: 11-29-2022 End: 11-29-2022 ambulatory Parris Thomas Other [employer] Other Start: 11-29-2022 Telephone encounter Parris Thomas [facility] Start: 11-28-2022 End: 11-28-2022 ambulatory Parris Thomas Other [employer] Other Start: 11-28-2022 Telephone encounter Parris Thomas [facility] Start: 11-27-[address] Gaston Alexander II Facility:[id number] Start: 11-26-2022 End: 11-26-2022 ambulatory Parris Thomas Other [employer] Other Start: 11-26-2022 Telephone encounter Parris Thomas [facility] Start: 11-26-2022 End: 11-29-2022 Evaluation and management of inpatient Kodi Hong Facility:[facility] Start: 11-25-2022 End: 11-29-2022 Evaluation and management of inpatient Tariq ALCALA [facility] Start: 11-05-2022 End: 11-05-2022 ambulatory Parris Thomas Other [employer] Other Start: 11-05-2022 Office outpatient vi sit 25 minutes Parris Thomas [facility] Start: 10-24-2022 End: 10-24-2022 Patient encounter procedure [employer] [facility] Start: 10-03-2022 End: 10-03-2022 ambulatory Parris Thomas Other [employer] Other Start: 10-03-2022 Telephone encounter Parris Thomas [facility] Start: 09-26-2022 End: 09-26-2022 Patient encounter procedure Yung Mishram [facility] Start: 09-25-2022 End: 09-25-2022 ambulatory Parris Thomas Other [employer] Other Start: 09-25-2022 Telephone encounter Parris Thomas [facility] Start: 09-20-2022 End: 09-20-2022 ambulatory Chaparro Heck Other [employer] Other Start: 09-20-2022 Telephone encounter Chaparro arguello [facility] [employer] Start: 09-11-2022 End: 09-11-2022 ambulatory Parris Thomas Other [employer] Other Start: 09-11-2022 Telephone encounter Parris Thomas [facility] Start: 09-07-2022 End: 09-07-2022 Patient encounter procedure Yung Hough [facility] Start: 09-06-2022 End: 09-06-2022 ambulatory Parris Thomas Other [employer] Other Start: 09-06-2022 Telephone encounter Parris Thomas [facility] Start: 09-04-2022 End: 09-04-2022 ambulatory Parris Thomas Other [employer] Other Start: 09-04-2022 Office outpatient vi sit 25 minutes Parris Thomas [facility] Start: 08-15-2022 End: 08-15-2022 ambulatory Parris Thomas Other [employer] Other Start: 08-15-2022 Telephone encounter Parris Thomas [facility] Start: 08-15-2022 End: 08-18-2022 Evaluation and management of inpatient Hasynes AMIR [facility] Start: 08-10-2022 End: 08-10-2022 ambulatory Parris Thomas Other [employer] Other Start: 08-10-2022 Telephone encounter Parris Thomas [facility] Start: 08-02-2022 End: 08-02-2022 ambulatory Parris Thomas Other [employer] Other Start: 08-02-2022 Telephone encounter Parris Thomas [facility] Start: 07-18-2022 End: 07-18-2022 ambulatory Parris Thomas Other [employer] Other Start: 07-18-2022 Telephone encounter Parris Thomas [facility] Start: 07-10-2022 End: 07-10-2022 ambulatory Parris Thomas Other [employer] Other Start: 07-10-2022 Office outpatient vi sit 25 minutes Parris Thomas [facility] Start: 07-10-2022 Telephone encounter Parris Thomas [facility] [place] Start: 07-02-2022 End: 07-02-2022 ambulatory Parris Thomas Other [employer] Other Start: 07-02-2022 Telephone encounter Parris Thomas [facility] Start: 05-02-2022 End: 05-02-2022 ambulatory Parris Thomas Other [employer] Other Start: 05-02-2022 Telephone encounter Parris Thomas [facility] Start: 04-20-2022 End: 04-20-2022 ambulatory Parris Thomas Other [employer] Other Start: 04-20-2022 Office outpatient vi sit 25 minutes Parris Thomas [facility] Start: 04-19-[address] Gaston Alvarez II Facility:[id number] Start: 04-11-2022 End: 04-11-2022 ambulatory Parris Thomas Other [employer] Other Start: 04-11-2022 Telephone encounter Parris Thomas [facility] Start: 04-06-[address] Gaston Alexander II Facility:[id number] Start: 04-06-2022 End: 04-06-2022 ambulatory DO Parris M. Thomas Work Phone: [facility] Work Phone: Start: 04-06-2022 End: 04-06-2022 Patient encounter procedure DO Parris Thomas Work Phone: [facility] Work Phone: Start: 03-28-2022 End: 03-28-2022 ambulatory Parris Thomas Other [employer] Other Start: 03-28-2022 Office outpatient vi sit 25 minutes Parris Thomas [facility] Start: 03-28-2022 Telephone encounter Parris Thomas [facility] Start: 03-07-2022 End: 03-07-2022 ambulatory Parris Thomas Other [employer] Other Start: 03-07-2022 Telephone encounter Parris Thomas [facility] Start: 02-26-2022 End: 02-26-2022 ambulatory Parris Thomas Other [employer] [facility] Start: 02-26-2022 Telephone encounter Parris Thomas [facility] Start: 02-14-2022 End: 02-14-2022 ambulatory Parris Thomas Other [employer] Other Start: 02-14-2022 Telephone encounter Parris Thomas [facility] Start: 02-05-2022 End: 02-05-2022 ambulatory Parris Thomas Other [employer] Other Start: 02-05-2022 Office outpatient vi sit 15 minutes Parris Thomas [facility] Start: 01-30-2022 End: 01-30-2022 ambulatory Parris Thomas Other [employer] Other Start: 01-30-2022 Telephone encounter Parris Thomas [facility] Start: 01-26-2022 End: 01-26-2022 ambulatory Parris Thomas Other [employer] Other Start: 01-26-2022 Telephone encounter Parris Thomas [facility] Start: 01-22-2022 End: 01-22-2022 ambulatory Parris Thomas Other [employer] Other Start: 01-22-2022 Telephone encounter Parris Thomas [facility] Start: 01-16-2022 End: 01-16-2022 ambulatory Parris Thomas Other [employer] Other Start: 01-16-2022 Telephone encounter Parris Thomas [facility] Start: 01-03-2022 End: 01-03-2022 ambulatory Parris Thomas Other [employer] Other Start: 01-03-2022 Office outpatient vi sit 25 minutes Parris Thomas [facility] Start: 01-03-2022 Telephone encounter Parris Thomas [facility] Start: 12-25-2021 End: 12-25-2021 ambulatory Parris Thomas Other [employer] Other Start: 12-25-2021 Telephone encounter Parris Thomas [facility] Start: 12-25-2021 End: 12-25-2021 Patient encounter procedure DO Parris Thomas Work Phone: [facility] Start: 12-01-2021 End: 12-01-2021 ambulatory Parris Thomas Other [employer] Other Start: 12-01-2021 Telephone encounter Parris Thomas [facility] Start: 11-13-2021 End: 11-13-2021 ambulatory Parris Thomas Other [employer] Other Start: 11-13-2021 Telephone encounter Parris Thomas [facility] Start: 11-09-2021 End: 11-09-2021 ambulatory Parris Thomas Other [employer] Other Start: 11-09-2021 Telephone encounter Parris Thomas [facility] Start: 11-08-2021 End: 11-08-2021 Patient encounter procedure DO Parris Thomas Work Phone: [facility] Start: 10-30-2021 End: 10-30-2021 ambulatory Parris Thomas Other [employer] Other Start: 10-30-2021 Telephone encounter Parris Thomas [facility] Start: 10-06-2021 End: 10-06-2021 ambulatory Parris Thomas Other [employer] Other Start: 10-06-2021 Office outpatient vi sit 25 minutes Parris Thomas [facility] Start: 09-29-2021 End: 09-29-2021 ambulatory Parris Thomas Other [employer] Other Start: 09-29-2021 Telephone encounter Parris Thomas [facility] Start: 09-28-2021 End: 09-28-2021 Patient encounter procedure DO Parris Thomas Work Phone: [facility] [place] Start: 09-26-2021 End: 09-26-2021 ambulatory Parris Thomas Other [employer] Other Start: 09-26-2021 Telephone encounter Parris Thomas [facility] Start: 09-20-2021 End: 09-20-2021 ambulatory Parris Thomas Other [employer] Other Start: 09-20-2021 Telephone encounter Parris Thomas [facility] Start: 09-13-2021 End: 09-13-2021 ambulatory Parris Thomas Other [employer] Other Start: 09-13-2021 Telephone encounter Parris Thomas [facility] Start: 08-29-2021 End: 08-29-2021 ambulatory Parris Thomas Other [employer] Other Start: 08-29-2021 Telephone encounter Parris Thomas [facility] Start: 08-07-2021 End: 08-07-2021 ambulatory Parris Thomas Other [employer] Other Start: 08-07-2021 Telephone encounter Parris Thomas [facility] Start: 08-03-2021 End: 08-03-2021 ambulatory Parris Thomas Other [employer] Other Start: 08-03-2021 Telephone encounter Parris Thomas [facility] Start: 07-28-2021 End: 07-28-2021 ambulatory Parris Thomas Other [employer] Other Start: 07-28-2021 Telephone encounter Parris Thomas [facility] Start: 07-10-2021 End: 07-10-2021 ambulatory Parris Thomas Other [employer] Other Start: 07-10-2021 Telephone encounter Parris Thomas [facility] Start: 06-26-2021 End: 06-26-2021 ambulatory Parris Thomas Other [employer] Other Start: 06-26-2021 Telephone encounter Parris Thomas [facility] Start: 05-26-2021 End: 05-26-2021 ambulatory Parris Thomas Other [employer] Other Start: 05-26-2021 Telephone encounter Parris Thomas [facility] Start: 05-24-2021 End: 05-24-2021 ambulatory Parris Thomas Other [employer] Other Start: 05-24-2021 Telephone encounter Parris Thomas [facility] Start: 04-26-2021 End: 04-26-2021 ambulatory Parris Thomas Other [employer] Other Start: 04-26-2021 Telephone encounter Parris Thomas [facility] Start: 04-24-2021 End: 04-24-2021 ambulatory Parris Thomas Other [employer] Other Start: 04-24-2021 Telephone encounter Parris Thomas [facility] Start: 03-24-2021 End: 03-24-2021 ambulatory Parris Thomas Other [employer] Other Start: 03-24-2021 Telephone encounter Parris Thomas [facility] Start: 03-08-2021 End: 03-08-2021 ambulatory Parris Thomas Other [employer] Other Start: 03-08-2021 Telephone encounter Parris Thomas [facility] Start: 03-06-2021 End: 03-06-2021 ambulatory Parris Thomas Other [employer] Other Start: 03-06-2021 Telephone encounter Parris Thomas [facility] Start: 02-20-2021 End: 02-20-2021 ambulatory Parris Thomas Other [employer] Other Start: 02-20-2021 Telephone encounter Parris Thomas [facility] Start: 02-13-2021 End: 02-13-2021 ambulatory Parris Thomas Other [facility] [employer] Other Start: 02-13-2021 Telephone encounter Parris Thomas [facility] Start: 01-24-2021 Office outpatient vi sit 25 minutes Parris Thomas [facility] Start: 01-24-2021 Telephone encounter Parris Thomas [facility] Start: 05-25-2020 End: 05-26-2020 Patient encounter procedure NONE LISTED REQUEST Facility: Start: 05-02-2020 End: 05-03-2020 Patient encounter procedure NONE LISTED REQUEST Facility: Start: 09-02-2019 End: 09-03-2019 Patient encounter procedure PARRIS DIAZGLES Facility: Procedures Date Procedure Procedure Detail Performing Clinician Start: 09-04-2023 Urine culture DO Parris R uggles Work Phone: Start: 01-31-2023 X-ray of left knee MD Lynn Rolon Jr Work Phone: Start: 01-17-2023 Plain X-ray of left femur MD Cheko Rolon Jr Work Phone: Start: 01-17-2023 Plain X-ray of left tibia and left fibula MD Cheko Rolon Jr Work Phone: Start: 01-17-2023 X-ray of left knee MD Lynn Rolon Jr Work Phone: Start: 11-08-2021 Plain chest X-ray DO Se th Thomas Work Phone: Start: 09-28-2021 MRI of lumbar spine with contrast DO Parris Thomas Work Phone: Start: 09-28-2021 XR pre/post mri xray DO Parris Thomas Work Phone: Start: 12-09-2019 Catheterization of left heart Hasan AMIR Start: 11-17-2019 Antibody screen Comment on above: Order Comment: Trans fusion Status: CONSERVATION Blood Bank service requested: TYPE AND SCREEN Performed By: #### B [id number] #### Test performed at: [facility] [address] [address] Start: 11-17-2019 Electrocardiogram Start: 10-15-2018 trans-oburator mid u retheral sling bladder suspension Hasynes AMIR Appendectomy Hasan AMIR Cholecystectomy Hasan AMIR Entire thumb (body structure) Hasan AMIR Comment on above: surgery Plan of Treatment Date Care Activity Detail Author Start: 01-17-2033 Urine microalbumin profile DTaP,Tdap,Td Vaccine (3 - Td or Tdap) [facility] Start: 09-10-2026 Diabetes Screening Diabetes Screenin g [facility] Start: 11-28-2023 End: 11-28-2023 Patient encounter procedure 11/28/2023 2:00 PM EDT Office Visit Urology [address] [place] [address] Mara Monroy MD [address] [place] [address] botox Urology Comment on above: botox Start: 09-05-2023 Bacteria identified in Urine by Culture [facility] Start: 09-04-2023 Bacteria identified in Urine by Culture [facility] Start: 07-18-2023 Covid-19 Vaccine ( season) Covid-19 Vaccine ( season) [facility] Start: 04-08-2023 Advance Directive Discussion Advance Directive Discussion [facility] Start: 04-08-2023 Behavioral Health Screening Behavioral Health Screening [facility] Start: 01-17-2023 Plain X-ray of left femur XR femur LT 2V* [facility] Start: 01-17-2023 Plain X-ray of left tibia and left fibula XR tibia fibula LT 2V* [facility] Start: 01-17-2023 X-ray of left knee XR knee LT 2V [facility] Start: 01-17-2023 XR Femur - left 2 Views [facility] Start: 01-17-2023 XR Knee - left 2 Views [facility] Start: 01-17-2023 XR Tibia and Fibula - left 2 Views [facility] Start: 2014 Screening for osteoporosis Bone Density Screening [facility] Start: 2009 RSV Vaccine (1 - 1-d ose 60+ series) RSV Vaccine (1 - 1-dose 60+ series) [facility] Start: 11-02-1999 Shingrix Vaccine (1 of 2) Shingrix Vaccine (1 of 2) [facility] Start: 1994 Lipid panel Lipid Screening [facility] Start: 1994 Screening for malign ant neoplasm of colon [facility] Start: 1989 Screening for malign ant neoplasm of breast Mammogram Screening [facility] Start: 11-02-1967 Hepatitis C screening Hepatitis C Sc reening [facility] BOTOX/CYSTO BOTOX/CYSTO Proc edures Routine Urge urinary incontinence Ordered: 09/12/2023 [facility] Work Phone: Comment on above: Ordered: 09/12/2023 Patient Education [facility] Work Phone: Patient referral [facility] Work Phone: XR Chest 2 Views [facility] Immunizations Immunization Date Immunization Notes Care Provider Alberto arellano 03-18-2023 COVID-19 Vaccine Pfizer - Documentation Purposes Only Parris Thomas Other [facility] 02-01-2023 influenza, injectable, quadrivalent, preservative free DO Parris Thomas Work Phone: [facility] 02-01-2023 influenza, injectable, quadrivalent, contains preservative Parris Thomas Other [employer] Other 01-17-2023 tetanus toxoid, reduced diphtheria toxoid, and acellular pertussis vaccine, adsorbed MD Cheko Rolon Jr Work Phone: [facility] 01-15-2022 COVID-19 Pfizer (bivalent) Parris Thomas Other [facility] 01-15-2022 influenza, high dose seasonal, preservative-free Parris Thomas Other [employer] Other 01-15-2022 influenza virus vaccine, unspecified formulation DO Parris Thomas Work Phone: [facility] 08-08-2021 COVID-19 Vaccine Pfizer - Documentation Purposes Only Parris Thomas Other [facility] 08-08-2021 pneumococcal polysaccharide vaccine, 23 valent Parris Thomas Other [facility] 01-10-2021 influenza virus vaccine, unspecified formulation DO Parris Thomas Work Phone: [facility] 01-10-2021 influenza, high dose seasonal, preservative-free Parris Thomas Other [facility] [employer] Other 05-25-2020 Do not use COVID-19 Pfizer 2 dose Parris Thomas Other [facility] 05-02-2020 Do not use COVID-19 Pfizer 2 dose Parris Thomas Other [facility] 01-21-2020 influenza, seasonal, injectable Parris Thomas Other [facility] 12-29-2018 influenza virus vaccine, unspecified formulation DO Parris Thomas Work Phone: [facility] 12-29-2018 influenza, high dose seasonal, preservative-free Parris Thomas Other [employer] Other 01-01-2018 influenza virus vaccine, unspecified formulation DO Parris Thomas Work Phone: [facility] 01-01-2018 influenza, high dose seasonal, preservative-free Parris Thomas Other [employer] Other 01-23-2017 influenza, high dose seasonal, preservative-free Parris Thomas Other [employer] Other 01-23-2017 influenza virus vaccine, unspecified formulation DO Parris Thomas Work Phone: [facility] 01-23-2017 influenza, injectable, quadrivalent, contains preservative Patient Objection Parris Thomas Other [employer] Other 10-03-2016 Toradol per 15 mg Parris Ruggl es Other [employer] Other 07-18-2016 pneumococcal conjugate vaccine, 13 valent Parris Thomas Other [facility] 01-18-2016 influenza, injectable, quadrivalent, contains preservative Patient Objection Parris Thomas Other [employer] Other 12-19-2015 influenza, injectable, quadrivalent, contains preservative Patient Objection Parris Thomas Other [employer] Other 08-03-2015 tetanus toxoid, reduced diphtheria toxoid, and acellular pertussis vaccine, adsorbed Parris Thomas Other [facility] 08-02-2015 tetanus toxoid, adsorbed Parris Thomas Other [facility] 01-17-2015 influenza, injectable, quadrivalent, preservative free DO Parris Thomas Work Phone: [facility] 01-17-2015 influenza, injectable, quadrivalent, contains preservative Parris Thomas Other [employer] Other 01-26-2014 influenza, injectable, quadrivalent, preservative free Parris Thomas Other [employer] Other 01-26-2014 influenza, injectable, quadrivalent, contains preservative DO Parris Thomas Work Phone: [facility] 01-15-2011 influenza virus vaccine, unspecified formulation DO Parris Thomas Work Phone: [facility] 01-15-2011 influenza virus vaccine, split virus (incl. purified surface antigen) Parris Thomas Other [employer] Other 02-06-2008 pneumococcal polysaccharide vaccine, 23 valent Parris Thomas Other [facility] NEGATED: Highlighted row has not occurred! 7 influenza, injectable, quadrivalent, contains preservative Patient Objection Parris Thomas Other [employer] Other NEGATED: Highlighted row has not occurred! 6 influenza, injectable, quadrivalent, contains preservative Patient Objection Parris Thomas Other [employer] Other NEGATED: Highlighted row has not occurred! 6 influenza, injectable, quadrivalent, contains preservative Patient Objection Parris Thomas Other [employer] Other Payers Date Payer Category Payer Unknown 2014 Medicare [id number] 1959 Medicare [id number] 1959 Self-pay 1959 Unknown [id number] 1949 Unknown [id number] 2.16.84 0.1.693442.3.579.2.593 1949 Unknown [id number] 2.16. 840.1.878200.3.579.2.356 1949 Unknown [id number] 2.16. 840.1.642210.3.579.2.356 1949 Unknown [id number] 2.16. 840.1.797804.3.579.2.356 1949 Unknown [id number] 2.16.8 40.1.485818.3.579.2.727 1949 Unknown [id number] 2.16.8 40.1.287325.3.579.2.727 1949 Unknown [id number] 2.16.8 40.1.172479.3.579.2.727 1949 Unknown [id number] 2.16.8 40.1.825179.3.579.2.727 1949 Unknown [id number] 2.16.8 40.1.599789.3.579.2.727 1949 Unknown [id number] 2.16.8 40.1.572192.3.579.2.727 1949 Unknown [id number] 2.16.8 40.1.936821.3.579.2.727 1949 Unknown [id number] 2.16. 840.1.636016.3.579.2.196 1949 Unknown [id number] 2.16. 840.1.337291.3.579.2.196 1949 Unknown [id number] 2.16.8 40.1.007579.3.579.2.727 1949 Unknown [id number] 2.16.8 40.1.797888.3.579.2.727 1949 Unknown [id number] 2.16.8 40.1.054550.3.579.2.727 1949 Unknown [id number] 2.16.8 40.1.635848.3.579.2.727 Medicare Medicare Nonpatient [id number] [id number] Unknown [id number] 2.16.84 0.1.037359.3.579.2.593 Unknown [id number] 2.16.84 0.1.637240.3.579.2.593 Unknown MMO [id number] Unknown [id number] 2.16.8 40.1.793921.3.579.2.531 Unknown [id number] 2.16.8 40.1.338447.3.579.2.531 Unknown [id number] 2.16.8 40.1.204963.3.579.2.531 Unknown [id number] 2.16.8 40.1.504360.3.579.2.531 Unknown [id number] 2.16.8 40.1.396854.3.579.2.531 Social History Date Type Detail Facility Unknown if ever smoked [employer] Other Start: 09-12-2023 Sex Assigned At [facility] Start: 11-08-2021 End: 08-09-2023 Tobacco smoking status [facility] Ex-smoker (finding) [facility] Comment on above: patient quit smoking in July 2018 Start: 1950 Sex Assigned At Female [facility] Start: 01-17-2023 Tobacco smoking status NVIS Current some day smoker [facility] Start: 01-22-2023 Tobacco smoking status NVIS Never smoked tobacco (finding) [facility] Tobacco smoking status [facility] Tobacco smoking consumption unknown [facility] Start: 09-12-2023 History of Social function [facility] National Score (1-100), lower number is lower risk 62 [facility] Start: 1950 Sex Assigned At Not on file [facility] Medical Equipment Procedure Code Equipment Code Equipment Origin al Text Equipment Identifier Dates Colporrhaphy, anteroposterior, for repair of cystocele, rectocele or enterocele Stress urinary incontinence surgical mesh, female [id number] [facility] Start: 12-27-2021 Functional Status Date Assessment Result Facility 08-26-2023 Functional Status No [facility] 08-26-2023 Functional Status [facility] 11-26-2022 Functional Status No [facility] 11-25-2022 Functional Status [facility] 10-24-2022 Functional Status No [facility] 09-07-2022 Functional Status No [facility] 08-15-2022 Functional Status N/A [facility] Clinical Notes 06-07-2011 to 09-23-2023 Note Date & Type Note Facility 09-23-2023 Evaluation note Authored September 23, 2023 11:56am *Progress note was completed with the assistance of voice recognition software for dictation purposes. Please excuse any grammatical errors that were not corrected during review process. [facility] Work Phone: [phone]) 312-521106-07-2024 Telephone encounter Note* Telephone Encounter - Arelt Aguayo LPN - 09/13/2023 1:43 PM EDT Notified per Dr. Monroy to hold plavix 5 days before She will call prescribing Dr. Donal roberts sure they are aware and okay with this [facility]06-07-2024 Miscellaneous Notes* Telephone Encounter - Arlet Aguayo LPN - 09/13/2023 1:43 PM EDT Notified per Dr. Monroy to hold plavix 5 days before She will call prescribing Dr. Donal roberts sure they are aware and okay with this * Telephone Encounter - Charlotte Jones - 09/13/2023 10:42 AM EDT Pt scheduled for cystoscopy botox. Pt on plavix every other day. Please review and advise. No chief complaint on file. Patient has been identified by name and birthdate. Duration of symptoms: N/A Person calling: self Call patient at: on cell [phone] (home) [phone] (cell) Was an appointment scheduled: No Closing statement: Results or non-symptom based questions: Thank you for calling [facility], your call will be returned within the next business day. Charlotte Peña documented in this encounterSt. [facility] Telephone encounter Note * Telephone Encounter - Charlotte Jones - 09/13/2023 10:42 AM EDT Pt scheduled for cystoscopy botox. Pt on plavix every other day. Please review and advise. No chief complaint on file. Patient has been identified by name and birthdate. Duration of symptoms: N/A Person calling: self Call patient at: on cell [phone] (home) [phone] (cell) Was an appointment scheduled: No Closing statement: Results or non-symptom based questions: Thank you for calling [facility], your call will be returned within the next business day. Charlotte Peña [facility]06-06-2024 History of Present illness Narrative* Mara Monroy MD - 09/12/2023 4:00 PM EDT Images from the original note were not included. [facility] FEMALE PELVIC MEDICINE AND RECONSTRUCTIVE SURGERY NEW PATIENT CLINIC NOTE SERVICE DATE: 09/12/2023 SERVICE TIME: 2:11 PM NAME: Nicole Lomeli REFERRED BY: Consultation requested by Dr. Kim Harris [id number] [facility] [id number] for an opinion regarding pelvic organ prolapse. My final recommendations will be communicated back to the requesting physician by way of shared medical record or letter via [place] mail. CHIEF COMPLAINT: Urge incontinence No STACEY. Daytime and night time incontinence and significant nocturia. Has legs edema, had echho-cardiogram 2 weeks ago with normal cardiac function per patient. Not currently on any water pills. Was on oxybutynin (DITROPAN) 2.5 mg tablet, mirabegron 50mg - did not help. S/p - Cholecystectomy (1968), Hysterectomy (1969), urethral dilation (2018, dr Marshall), sling placement (2018, Dr Marshall), second sling surgery (2021, [facility]). COPD (smoking history), on oxygen. HISTORY OF PRESENT ILLNESS: Nicole Lomeli is a 72 year old F P with PMH including history of stroke (2011, on plavix since), hyperlipidemia, COPD presenting with urge incontinence and nocturia. STACEY: No URGENCY: Yes UI: Yes PADS: 6-8 thick FREQUENCY:8 per day NOCTURIA: 6 per night STRAINING TO VOID: No EMPTIES COMPLETELY: Yes UTI: No FLUIDS: mainly water Caffeine: tea/coffee SEXUALLY ACTIVE: no DYSPAREUNIA: NO Post-menopause: yes Have you had a hysterectomy:YES Postmenopausal bleeding:No Sense of vaginal bulge:YES HEMATURIA HX: No STONES: No GI: No Problem Do you have any new weakness,balance or coordination problems:NO Do you have a history of any diagnosed back or Neurological problems:YES PAST MEDICAL HISTORY No past medical history on file. PAST SURGICAL HISTORY No past surgical history on file. FAMILY HISTORY No family history on file. SOCIAL HISTORY MEDICATIONS: Current Outpatient Medications Medication Sig oxybutynin (DITROPAN) 2.5 mg tablet Take 1 tablet (2.5 mg) by mouth three times a day. No current facility-administered medications for this visit. CURRENT ALLERGIES: Allergies As of Date: 09/12/2023 (No Known Allergies) Fully Assessed 09/11/2023 OBJECTIVE PHYSICAL EXAM: There were no vitals filed for this visit. There is no height or weight on file to calculate BMI. General: No acute distress, well appearing Abdomen: Soft, NT, nondistended Extremities: Normal range of motion, no LE edema : External genitalia: Normal appearing, well estrogenized, no skin lesions Vestibule: Nontender, normal appearing Urethra: Normal appearing urethral meatus, no masses, nontender, no diverticulum, neg cough stress test Bladder: Nontender Vagina: Normal appearing, minimal discharge, no cysts or masses. Pelvic Floor Musculature: Nontender to palpation Anus and perineum grossly nl, POP-Q: Prolapse noted: Yes Ba = -2, C = -4,gh = 4, pb = 3, Bp = 0, D = N/A PVR: 0 mL via bladder US DATA: Labs UA: Normal Imaging Abdominal pelvic CT - no abnormal findings ASSESSMENT and PLAN: 72 yo F with UUI and nocturia, failed multiple medications. Symptoms create significant impact on quality of life. We discussed UUI and nocturia in details. Will pursue legs elevation, compressing socks, minimize fluids after 6pm, minimize caffeine/diet beverages. Discussed pelvic floor issues as well, will consider baclofen suppositories. -Overactive Bladder (OAB)- ICD9: 596.51, ICD10: N32.81 We reviewed the following treatment options for OAB: Lifestyle modifications including avoiding caffeine intake and dietary bladder irritants, decreasing total fluid intake, timed voiding, etc Pelvic floor exercises Medical therapy (anticholinergic medication/beta 3 agonist medication) Botox injection (including risk of UTI and incomplete bladder emptying) - if conservative measures unsuccessful PTNS - if conservative measures unsuccessful At this point patient has failed: Lifestyle modifications including avoiding caffeine intake and dietary bladder irritants, decreasing total fluid intake, timed voiding, etc Pelvic floor exercises Medical therapy (anticholinergic medication/beta 3 agonist medication) At this point pt would like to proceed with: Botox injection (including risk of UTI and incomplete bladder emptying) - if conservative measures unsuccessful -Nocturia/Nocturnal polyuria-We reviewed treatment modalities for nocturnal polyuria Lifestyle modifications such as, Use compression stockings. Lower extremity edema can redistribute intravascularly at nighttime when supine and cause nocturia. Consider referral to occupational therapy for fitting of stockings. , Elevate legs in late afternoon/early evening, approximately four hours before bedtime. , Minimize caffeine and bladder irritants. , and Minimize fluid intake four hours before bedtime. At this point, the patient would like to pursue follow up ASSESSMENT/PLAN: 1. Urge urinary incontinence - ICD9: 788.31, ICD10: N39.41 (primary diagnosis) - BOTOX/CYSTO 2. Pelvic pain in female - ICD9: 625.9, ICD10: R10.2 - will try baclofen suppositories - Discussed PFPT but pt has upcoming respiratory therapy 3. Nocturia - ICD9: 788.43, ICD10: R35.1 - life style modifications for now. All of the patients questions and concerns were discussed in detail. Fito Hitchcock MD STAFF ATTESTATION I have personally interviewed and examined this patient and we discussed the recommendations in detail. I agree with fellow documentation and have edited the note. Mara Monroy MD Urology Staff [facility] Female Pelvic Medicine and Reconstructive Surgery * Yaneli He RN - 09/12/2023 3:43 PM EDT PVR = 0 cc/ml via bladder scan documented in this encounterSt. [facility] NoteHNO ID: [id number] Author: MARA MONROY MD Service: ? Author Type: Physician Type: Progress Notes Filed: 09/12/2023 16:49 Note Text: [facility]ALE PELVIC MEDICINE AND RECONSTRUCTIVE SURGERY NEW PATIENT CLINIC NOTE SERVICE DATE: 09/12/2023 SERVICE TIME: 2:11 PM NAME: Nicole Lomeli REFERRED BY: Consultation requested by Dr. Kim Harris [id number] [facility] [id number] for an opinion regarding pelvic organ prolapse. My final recommendations will be communicated back to the requesting physician by way of shared medical record or letter via [place] mail. CHIEF COMPLAINT: Urge incontinence No STACEY. Daytime and night time incontinence and significant nocturia. Has legs edema, had echho-cardiogram 2 weeks ago with normal cardiac function per patient. Not currently on any water pills. Was on oxybutynin (DITROPAN) 2.5 mg tablet, mirabegron 50mg - did not help. S/p - Cholecystectomy (1968), Hysterectomy (1969), urethral dilation (2018, dr Marshall), sling placement (2018, Dr Marshall), second sling surgery (2021, [facility]). COPD (smoking history), on oxygen. HISTORY OF PRESENT ILLNESS: Nicole Lomeli is a 72 year old F P with PMH including history of stroke (2011, on plavix since), hyperlipidemia, COPD presenting with urge incontinence and nocturia. STACEY: No URGENCY: Yes UI: Yes PADS: 6-8 thick FREQUENCY:8 per day NOCTURIA: 6 per night STRAINING TO VOID: No EMPTIES COMPLETELY: Yes UTI: No FLUIDS: mainly water Caffeine: tea/coffee SEXUALLY ACTIVE: no DYSPAREUNIA: NO Post-menopause: yes Have you had a hysterectomy:YES Postmenopausal bleeding:No Sense of vaginal bulge:YES HEMATURIA HX: No STONES: No GI: No Problem Do you have any new weakness,balance or coordination problems:NO Do you have a history of any diagnosed back or Neurological problems:YES PAST MEDICAL HISTORY No past medical history on file. PAST SURGICAL HISTORY No past surgical history on file. FAMILY HISTORY No family history on file. SOCIAL HISTORY MEDICATIONS: Current Outpatient Medications Medication Sig oxybutynin (DITROPAN) 2.5 mg tablet Take 1 tablet (2.5 mg) by mouth three times a day. No current facility-administered medications for this visit. CURRENT ALLERGIES: Allergies As of Date: 09/12/2023 (No Known Allergies) Fully Assessed 09/11/2023 OBJECTIVE PHYSICAL EXAM: There were no vitals filed for this visit. There is no height or weight on file to calculate BMI. General: No acute distress, well appearing Abdomen: Soft, NT, nondistended Extremities: Normal range of motion, no LE edema : External genitalia: Normal appearing, well estrogenized, no skin lesions Vestibule: Nontender, normal appearing Urethra: Normal appearing urethral meatus, no masses, nontender, no diverticulum, neg cough stress test Bladder: Nontender Vagina: Normal appearing, minimal discharge, no cysts or masses. Pelvic Floor Musculature: Nontender to palpation Anus and perineum grossly nl, POP-Q: Prolapse noted: Yes Ba = -2, C = -4,gh = 4, pb = 3, Bp = 0, D = N/A PVR: 0 mL via bladder US DATA: Labs UA: Normal Imaging Abdominal pelvic CT - no abnormal findings ASSESSMENT and PLAN: 72 yo F with UUI and nocturia, failed multiple medications. Symptoms create significant impact on quality of life. We discussed UUI and nocturia in details. Will pursue legs elevation, compressing socks, minimize fluids after 6pm, minimize caffeine/diet beverages. Discussed pelvic floor issues as well, will consider baclofen suppositories. -Overactive Bladder (OAB)- ICD9: 596.51, ICD10: N32.81 We reviewed the following treatment options for OAB: Lifestyle modifications including avoiding caffeine intake and dietary bladder irritants, decreasing total fluid intake, timed voiding, etc Pelvic floor exercises Medical therapy (anticholinergic medication/beta 3 agonist medication) Botox injection (including risk of UTI and incomplete bladder emptying) - if conservative measures unsuccessful PTNS - if conservative measures unsuccessful At this point patient has failed: Lifestyle modifications including avoiding caffeine intake and dietary bladder irritants, decreasing total fluid intake, timed voiding, etc Pelvic floor exercises Medical therapy (anticholinergic medication/beta 3 agonist medication) At this point pt would like to proceed with: Botox injection (including risk of UTI and incomplete bladder emptying) - if conservative measures unsuccessful -Nocturia/Nocturnal polyuria-We reviewed treatment modalities for nocturnal polyuria Lifestyle modifications such as, Use compression stockings. Lower extremity edema can redistribute intravascularly at nighttime when supine and cause nocturia. Consider referral to occupational therapy for fitting of stockings. , Elevate legs in late afternoon/early evening, approxim (more content not included)...[facility]06-06-2024 NoteHNO ID: [id number] Author: YANELI HE RN Service: ? Author Type: Registered Nurse Type: Progress Notes Filed: 09/12/2023 16:49 Note Text: PVR = 0 cc/ml via bladder scanK[facility]06-05-2024 NoteHNO ID: [id number] Author: RASHIDA DEY RT(R) Service: ? Author Type: Technologist Type: Progress Notes Filed: 09/11/2023 16:32 Note Text: Radiology Service Progress Note PATIENT NAME: Nicole Lomeli DATE OF SERVICE: September 11, 2023 TIME: 4:31 PM PATIENT IDENTITY VERIFICATION COMPLETED USING TWO (2) IDENTIFIERS: Name and Date of confirmed by patient verbally and Name and Date of confirmed by identification band. FALL SCREENING: Has the patient had 2 falls in the last year or 1 fall with injury or currently using an Ambulatory Assistive Device (Walker, Cane, Wheelchair, Crutches, etc.)? Emergency Room Patient: Screened in ED PATIENT GENDER DATA: Female. status: : No status: N/A PATIENT RELEVANT IMPLANT DATA REVIEWED: Not Applicable PATIENT PRESENTS WITH AN IMPLANTABLE OR ATTACHED GYPSUM CALCINER: No RADIOLOGY DEPARTMENT: CT; Exam(s) Completed: Abdomen/Pelvis PERIPHERAL IV DATA: Site assessment: Clean,Dry and Intact, Site disposition Left in for next appointment SIGNED BY: RT Siena(R) September 11, 2023 4:31 [id number] NoteAdmission and Discharge Information Admitting Physician - Albert RODAS DO Consulting Physician - [facility] Cardio, XXXX Radha MORFIN, Reid Junior Admitting Diagnoses: Discharge Order Date Discharge Patient - Ordered -- 08/27/23 9:54:00 EDT Discharge Diagnoses 1. Chest pain, 08/26/2023 2. Leukocytosis, 08/26/2023 3. Nausea, 08/26/2023 4. Chronic respiratory failure, 08/26/2023 5. COPD (chronic obstructive pulmonary disease), 08/26/2023 6. CVA (cerebral vascular accident), 08/26/2023 7. Chronic GERD, 08/26/2023 8. Depression with anxiety, 08/26/2023 9. Hyperlipidemia, 08/26/2023 10. Urge incontinence, 08/26/2023 11. UTI (urinary tract infection), 08/26/2023 Chest pain, 08/26/2023 Nausea, 08/26/2023 Procedure History Cardiac catheterization, left heart (12/09/2019), trans-oburator mid uretheral sling bladder suspension (10/15/2018), Appendectomy, Cholecystectomy, Thumb. Hospital Course 72-year-old female with past medical history of chronic respiratory failure on 4 L at home at baseline, COPD, anxiety/depression, urinary incontinence, GERD, CVA, HLD, insomnia presented to ER in theearly morning of 08/25 due to sudden episode of chest pain waking her up in the middle the night. Patient stated chest pain was left lower breast area that radiated to her back and jaw. Patient statespain lasted for about an hour. Patient denies anything making it better or worse. Patient denies any history of fever chills, nausea vomiting diarrhea, worsening shortness of breath, burning with urination, cough, or other symptoms at this time. Patient denies ever having heart attack in the past. Patient states she did have cardiac catheterization done by Dr. 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 Patient states she quit smoking approximately 10 years ago. Patient denies alcohol use. Patient lives at home with In ER patient was found to have negative troponins, WBC of 17.4, CO2 of 33, Pro- Janice 0.07, chest x-ray stable. Prior to arrival EMS had given her 4 baby aspirin, 4 mg Zofran, sublingual nitro. She was admitted for further workup and treatment. Cardiology was consulted and followed patient. Patient did have echocardiogram that did not show any acute findings. Cardiology stated that pain waslikely not cardiac due to echocardiogram findings as well as previous catheter report. Patient did not have any chest pain during stay. Patient did have UA done due to leukocytosis on admission and found to have UTI. Patient was then started on Rocephin. Patient got 1 dose of Rocephin. Patient was not having any urinary discomfort just some mild suprapubic pain. On 08/26 patient very much wanted to be discharged, I discussed with patient that I would like to know what her urinary culture which show but if she would like I could discharge her with antibiotics and for her to follow-up with PCP in 2 days to follow-up on urine culture and patient agreed and accepted plan of treatment. Patient stable at discharge. Medication changes Keflex to finish 5-day course Follow-up appointments PCP 2 days to follow-up on urine culture Cardiology 2 to 4 weeks as needed Discharge time was approximately 33 minutes which included extensive conversation with patient about diagnosis and treatment plan along with communication with consultants, nursing, case management. Services Consulted Consult to Cardiology - Ordered -- 08/26/23 8:43:00 EDT, chest pain, Consult and Co-manage, [facility] Physical Exam Vitals & Measurements T: 36.6 ?C(Oral) TMIN: 36.0 ?C(Axillary) TMAX: 36.6 ?C(Oral) HR: 88(Monitored) RR: 16 BP: 146/86 SpO2: 95% HT: 157.48 cm WT: 81.9 kg General: NAD Skin: Warm, dry Head: No trauma, normocephalic Neck: Trachea midline, supple, negative for JVD Eye: Conjunctive are clear, clear sclera , EOMI ENMT: oral mucosa moist, no lesions or edema nose or external ears Cardiovascular: Regular rate and rhythm, S1-S2 present, negative for murmurs rubs or gallops Respiratory: Lungs clear to auscultation, bilateral symmetric movement, negative for wheezes rales or rhonchi Chest wall: no deformity. Gastrointestinal: Abdomen soft, nontender to palpation, bowel sounds present Back: No tenderness Extremities: Range of motion intact, no edema Neurological: awake, alert, speech normal, cranial nerves II through XII intact, no sensory defects, alert and oriented x3 Psychiatric: cooperative, affect appropriate for age, pleasant Tests Performed Urine Culture -- Results Pending -- Echo Transthoracic Complete XR Chest Single View Please visit your patient portal for your results or contact your primary care physician. Discharge Plan Discharge Disposition Discharge To, Anticipated II - Home with responsible caregiver Discharged to - Home with family care Discharge Medication List Prescriptions Breo Ellipta 100 mcg-25 mcg in (more content not included)...[facility]Result Comment: Electronically Signed By: Gaston Horton DO\.br\Date and Time Signed: 08/29/23 11:08 [id number] Evaluation + Plan noteExtracted from: Title:Discharge Note Author:Gaston Horton DO Date:08/27/23 Discharge To, Anticipated II - Home with responsible caregiver Discharged to - Home with family care Prescriptions Breo Ellipta 100 mcg-25 mcg inhalation powder, 1 puff(s), Inhalation, Daily, 2 refills Keflex 500 mg Cap, 500 mg= 1 cap(s), Oral, BID Home Abilify 5 mg Tab, 5 mg= 1 tab(s), Oral, Daily acetaminophen-oxycodone 325 mg-10 mg oral tablet, 1 tab(s), Oral, q4hr, PRN albuterol 0.083% Inh Kaylee 3 mL, 0.083% - 3mL dosing units, Inhalation, q4hr, PRN Combivent Respimat, 1 puff(s), Inhalation, QID, PRN Evista 60 mg Tab, 60 mg= 1 tab(s), Oral, Daily fluconazole 200 mg Tab, 200 mg= 1 tab(s), Oral, Daily morphine 15 mg/8 hr oral tablet, extended release, 15 mg= 1 tab(s), Oral, q12hr omeprazole 20 mg Cap-EC, 20 mg= 1 cap(s), Oral, Daily Plavix 75 mg Tab, 75 mg= 1 tab(s), Oral, Every other day Prozac 40 mg Cap, 40 mg= 1 cap(s), Oral, Daily Senna 8.6 mg oral tablet, 17.2 mg= 2 tab(s), Oral, Once a day (at bedtime) simvastatin 40 mg Tab, 40 mg= 1 tab(s), Oral, Once a day (at bedtime) tiZANidine 2 mg Tab, 2 mg= 1 tab(s), Oral, q8hr, PRN TriCor 145 mg oral tablet, 145 mg= 1 tab(s), Oral, Daily Vitamin D 50,000 intl units (1.25 mg) oral capsule, 89635 International_Unit= 1 cap(s), Oral, Saturday Xanax 0.25 mg Tab, 0.25 mg= 1 tab(s), Oral, BID, PRN With When Contact Information Radha MORFIN, Reid Junior, CAR Within 2 to 4 weeks Additional Instructions: Call for followup appointment PARRIS GUZMAN DO, [facility] Within 2 to 3 days [address] [id number] Additional Instructions: Call for followup appointment Nonspecific Chest Pain, Adult, Qsxb-[id number] Urinary Tract Infection, Adult, Pyyl-ix-Dfvj Extracted from: Title:Consult Note Author:Angélica VASQUES, Cheko Junior ate:08/26/23 1. Chest pain (R07.9: Chest pain, unspecified) Does not appear to be ACS. Similar EKG to the past. Only had minimally obstructive heart disease in 2019. Will await echo results. Previous echo from 11/2022 was grossly normal 2. Leukocytosis (D72.829: Elevated white blood cell count, unspecified) 3. Nausea (R11.0: Nausea) 4. Chronic respiratory failure (J96.10: Chronic respiratory failure, unspecified whether with hypoxia or hypercapnia) 5. COPD (chronic obstructive pulmonary disease) (J44.9: Chronic obstructive pulmonary disease, unspecified) 6. CVA (cerebral vascular accident) (I63.9: Cerebral infarction, unspecified) 7. Chronic GERD (K21.9: Gastro-esophageal reflux disease without esophagitis) 8. Depression with anxiety (F41.8: Other specified anxiety disorders) 9. Hyperlipidemia (E78.5: Hyperlipidemia, unspecified) Continue with simvastatin and fenofibrate. 10. Urge incontinence (N39.41: Urge incontinence) Extracted from: Title:Admission H & P Author:Gaston Horton DO Date:08/26/23 Patient will be admitted und er observation status due to estimated length of stay less than 2 midnights. All labs, images, EKGs reviewed DVT PPx PAS bilaterally, heparin twice daily Diet cardiac CODE STATUS full code 1. Chest pain (R07.9: Chest pain, unspecified) No ischemic changes noted on EKG Telemetry Troponins negative Chest x-ray negative Check echocardiogram Consult cardio Low suspicion for PE at this time. Ordered: Initial Hospital Care/Day Moderate 55 Minutes [address]151 2. Leukocytosis (D72.829: Elevated white blood cell count, unspecified) may likely be reactive or recent prednisone use no hx of fevers,chills, cough check UA monitor no need for abx at this time 3. Nausea (R11.0: Nausea) Improved Zofran as needed 4. Chronic respiratory failure (J96.10: Chronic respiratory failure, unspecified whether with hypoxia or hypercapnia) 4 L at baseline 5. COPD (chronic obstructive pulmonary disease) (J44.9: Chronic obstructive pulmonary disease, unspecified) None DuoNebs as needed Inhalers as needed 6. CVA (cerebral vascular accident) (I63.9: Cerebral infarction, unspecified) statin plavix 7. Chronic GERD (K21.9: Gastro-esophageal reflux disease without esophagitis) PPI 8. Depression with anxiety (F41.8: Other specified anxiety disorders) prozac 40mg daily xanax 0.25mg BID PRN abililfy 5mg daily 9. Hyperlipidemia (E78.5: Hyperlipidemia, unspecified) statin 10. Urge incontinence (N39.41: Urge incontinence) oxybutynin Orders: Consult to Cardiology Echo Transthoracic Complete UA with Cult Rflx Extracted from: Title:ED Note Author:Yosvany Villeda DOMichael Date :08/26/23 Chest pain (R07.9: Chest isabel n, unspecified) Nausea (R11.0: Nausea) Orders: Basic Metabolic Panel CBC w/ Auto Diff ECG 12 Lead Adult ED Cardiac Monitoring eGFR Oxygen Saturation Oxygen Therapy PT & PTT Saline Lock Insert Troponin 0 Hr. Troponin 1 Hr. Troponin 3 Hr. Troponin 6 Hr. XR Chest Single View Future Appointments Appointment Date:09/05/2023 10:30:00 AM Scheduled Provider: Location:.Pulmonary Rehab Appointment Type:CAR Pulmonary Rehab () [facility]05-21-2024 NoteAdmission and Discharge Information Admitting Physician - Albert RODAS DO Consulting Physician - [facility] [place] [facility] Cardio, XXXX Radha MORFIN, Reid Junior Admitting Diagnoses: Discharge Order Date Discharge Patient - Ordered -- 08/27/23 9:54:00 EDT Discharge Diagnoses 1. Chest pain, 08/26/2023 2. Leukocytosis, 08/26/2023 3. Nausea, 08/26/2023 4. Chronic respiratory failure, 08/26/2023 5. COPD (chronic obstructive pulmonary disease), 08/26/2023 6. CVA (cerebral vascular accident), 08/26/2023 7. Chronic GERD, 08/26/2023 8. Depression with anxiety, 08/26/2023 9. Hyperlipidemia, 08/26/2023 10. Urge incontinence, 08/26/2023 11. UTI (urinary tract infection), 08/26/2023 Chest pain, 08/26/2023 Nausea, 08/26/2023 Procedure History Cardiac catheterization, left heart (12/09/2019), trans-oburator mid uretheral sling bladder suspension (10/15/2018), Appendectomy, Cholecystectomy, Thumb. Hospital Course 72-year-old female with past medical history of chronic respiratory failure on 4 L at home at baseline, COPD, anxiety/depression, urinary incontinence, GERD, CVA, HLD, insomnia presented to ER in theearly morning of 08/25 due to sudden episode of chest pain waking her up in the middle the night. Patient stated chest pain was left lower breast area that radiated to her back and jaw. Patient statespain lasted for about an hour. Patient denies anything making it better or worse. Patient denies any history of fever chills, nausea vomiting diarrhea, worsening shortness of breath, burning with urination, cough, or other symptoms at this time. Patient denies ever having heart attack in the past. Patient states she did have cardiac catheterization done by Dr. 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 Patient states she quit smoking approximately 10 years ago. Patient denies alcohol use. Patient lives at home with In ER patient was found to have negative troponins, WBC of 17.4, CO2 of 33, Pro- Janice 0.07, chest x-ray stable. Prior to arrival EMS had given her 4 baby aspirin, 4 mg Zofran, sublingual nitro. She was admitted for further workup and treatment. Cardiology was consulted and followed patient. Patient did have echocardiogram that did not show any acute findings. Cardiology stated that pain waslikely not cardiac due to echocardiogram findings as well as previous catheter report. Patient did not have any chest pain during stay. Patient did have UA done due to leukocytosis on admission and found to have UTI. Patient was then started on Rocephin. Patient got 1 dose of Rocephin. Patient was not having any urinary discomfort just some mild suprapubic pain. On 08/26 patient very much wanted to be discharged, I discussed with patient that I would like to know what her urinary culture which show but if she would like I could discharge her with antibiotics and for her to follow-up with PCP in 2 days to follow-up on urine culture and patient agreed and accepted plan of treatment. Patient stable at discharge. Medication changes Keflex to finish 5-day course Follow-up appointments PCP 2 days to follow-up on urine culture Cardiology 2 to 4 weeks as needed Discharge time was approximately 33 minutes which included extensive conversation with patient about diagnosis and treatment plan along with communication with consultants, nursing, case management. Services Consulted Consult to Cardiology - Ordered -- 08/26/23 8:43:00 EDT, chest pain, Consult and Co-manage, [facility] Physical Exam Vitals & Measurements T: 36.6 ?C(Oral) TMIN: 36.0 ?C(Axillary) TMAX: 36.6 ?C(Oral) HR: 88(Monitored) RR: 16 BP: 146/86 SpO2: 95% HT: 157.48 cm WT: 81.9 kg General: NAD Skin: Warm, dry Head: No trauma, normocephalic Neck: Trachea midline, supple, negative for JVD Eye: Conjunctive are clear, clear sclera , EOMI ENMT: oral mucosa moist, no lesions or edema nose or external ears Cardiovascular: Regular rate and rhythm, S1-S2 present, negative for murmurs rubs or gallops Respiratory: Lungs clear to auscultation, bilateral symmetric movement, negative for wheezes rales or rhonchi Chest wall: no deformity. Gastrointestinal: Abdomen soft, nontender to palpation, bowel sounds present Back: No tenderness Extremities: Range of motion intact, no edema Neurological: awake, alert, speech normal, cranial nerves II through XII intact, no sensory defects, alert and oriented x3 Psychiatric: cooperative, affect appropriate for age, pleasant Tests Performed Urine Culture -- Results Pending -- Echo Transthoracic Complete XR Chest Single View Please visit your patient portal for your results or contact your primary care physician. Discharge Plan Discharge Disposition Discharge To, Anticipated II - Home with responsible caregiver Discharged to - Home with family care Discharge Medication List Prescriptions Breo Ellipta 100 mcg-25 mcg in (more content not included)...[facility] on above:Result Comment: Electronically Signed By: Gaston Horton DO\.br\Date and Time Signed: 08/27/23 09:57 [id number] Hospital Discharge instructions Patient Education 08/27/2023 09:33:09 Nonspecific Chest Pain, Adult, Hetk-iz-Mipp Nonspecific Chest Pain Chest pain can be caused by many different conditions. Some causes of chest pain can be life-threatening. These will require treatment right away. Serious causes of chest pain include: Heart attack. A tear in the body's main blood vessel. Redness and swelling (inflammation) around your heart. Blood clot in your lungs. Other causes of chest pain may not be so serious. These include: Heartburn. Anxiety or stress. Damage to bones or muscles in your chest. Lung infections. Chest pain can feel like: Pain or discomfort in your chest. Crushing, pressure, aching, or squeezing pain. Burning or tingling. Dull or sharp pain that is worse when you move, cough, or take a deep breath. Pain or discomfort that is also felt in your back, neck, jaw, shoulder, or arm, or pain that spreads to any of these areas. It is hard to know whether your pain is caused by something that is serious or something that is not so serious. So it is important to see your doctor right away if you have chest pain. Follow these instructions at home: Medicines Take dwtb-moe-usaxiuc and prescription medicines only as told by your doctor. If you were prescribed an antibiotic medicine, take it as told by your doctor. Do not stop taking the antibiotic even if you start to feel better. Lifestyle Rest as told by your doctor. Do not use any products that contain nicotine or tobacco, such as cigarettes, e- cigarettes, and chewing tobacco. If you need help quitting, ask your doctor. Do not drink alcohol. Make lifestyle changes as told by your doctor. These may include: ?Getting regular exercise. Ask your doctor what activities are safe for you. ?Eating a heart-healthy diet. A diet and nutrition therapist (dietitian) can help you to learn healthy eating options. ?Staying at a healthy weight. ?Treating diabetes or high blood pressure, if needed. ?Lowering your stress. Activities such as yoga and relaxation techniques can help. General instructions Pay attention to any changes in your symptoms. Tell your doctor about them or any new symptoms. Avoid any activities that cause chest pain. Keep all follow-up visits as told by your doctor. This is important. You may need more testing if your chest pain does not go away. Contact a doctor if: Your chest pain does not go away. You feel depressed. You have a fever. Get help right away if: Your chest pain is worse. You have a cough that gets worse, or you cough up blood. You have very bad (severe) pain in your belly (abdomen). You pass out (faint). You have either of these for no clear reason: ?Sudden chest discomfort. ?Sudden discomfort in your arms, back, neck, or jaw. You have shortness of breath at any time. You suddenly start to sweat, or your skin gets clammy. You feel sick to your stomach (nauseous). You throw up (vomit). You suddenly feel lightheaded or dizzy. You feel very weak or tired. Your heart starts to beat fast, or it feels like it is skipping beats. These symptoms may be an emergency. Do not wait to see if the symptoms will go away. Get medical help right away. Call your local emergency services (911 in the [place] Do not drive yourself to the hospital. Summary Chest pain can be caused by many different conditions. The cause may be serious and need treatment right away. If you have chest pain, see your doctor right away. Follow your doctor's instructions for taking medicines and making lifestyle changes. Keep all follow-up visits as told by your doctor. This includes visits for any further testing if your chest pain does not go away. Be sure to know the signs that show that your condition has become worse. Get help right away if you have these symptoms. This information is not intended to replace advice given to you by your health care provider. Make sure you discuss any questions you have with your health care provider. Document Revised: 06/08/2021 Document Reviewed: 06/08/2021 [employer] Patient Education 2022 [employer]. 08/27/2023 09:33:04 Urinary Tract Infection, Adult, Xyre-pd-Kcve Urinary Tract Infection, Adult A urinary tract infection (UTI) is an infection of any part of the urinary tract. The urinary tractincludes: The kidneys. The ureters. The bladder. The urethra. These organs make, store, and get rid of pee (urine) in the body. What are the causes? This infection is caused by germs (bacteria) in your genital area. These germs grow and cause swelling (inflammation) of your urinary tract. What increases the risk? The following factors may make you more likely to develop this condition: Using a small, thin tube (catheter) to drain pee. Not being able to control when you pee or poop (incontinence). Being female. If you are female, these things can increase the risk: ?Using these methods to prevent : ?A medicine that kills sperm (spermicide). ?A device that blocks sperm (diaphragm). ?Having low levels of a female hormone (estrogen). ?Being . You are more likely to develop this condition if: You have genes that add to your risk. You are sexually active. You take antibiotic medicines. You have trouble peeing because of: ?A prostate that is bigger than normal, if you are male. ?A blockage in the part of your body that drains pee from the bladder. ?A kidney stone. ?A nerve condition that affects your bladder. ?Not getting enough to drink. ?Not peeing often enough. You have other conditions, such as: ?Diabetes. ?A weak disease-fighting system (immune system). ?Sickle cell disease. ?Gout. ?Injury of the spine. What are the signs or symptoms? Symptoms of this condition include: Needing to pee right away. Peeing small amounts often. Pain or burning when peeing. Blood in the pee. Pee that smells bad or not like normal. Trouble peeing. Pee that is cloudy. Fluid coming from the vagina, if you are female. Pain in the belly or lower back. Other symptoms include: Vomiting. Not feeling hungry. Feeling mixed up (confused). This may be the first symptom in older adults. Being tired and grouchy (irritable). A fever. Watery poop (diarrhea). How is this treated? Taking antibiotic medicine. Taking other medicines. Drinking enough water. In some cases, you may need to see a specialist. Follow these instructions at home: Medicines Take ezud-cth-rygbncr and prescription medicines only as told by your doctor. If you were prescribed an antibiotic medicine, take it as told by your doctor. Do not stop taking it even if you start to feel better. General instructions Make sure you: ?Pee until your bladder is empty. ?Do not hold pee for a long time. ?Empty your bladder after sex. ?Wipe from front to back after peeing or pooping if you are a female. Use each tissue one time whenyou wipe. Drink enough fluid to keep your pee pale yellow. Keep all follow-up visits. Contact a doctor if: You do not get better after 1 2 days. Your symptoms go away and then come back. Get help right away if: You have very bad back pain. You have very bad pain in your lower belly. You have a fever. You have chills. You feeling like you will vomit or you vomit. Summary A urinary tract infection (UTI) is an infection of any part of the urinary tract. This condition is caused by germs in your genital area. There are many risk factors for a UTI. Treatment includes antibiotic medicines. Drink enough fluid to keep your pee pale yellow. This information is not intended to replace advice given to you by your health care provider. Make sure you discuss any questions you have with your health care provider. Document Revised: 11/04/2020 Document Reviewed: 11/04/2020 [employer] Patient Education 2022 [employer]. Follow Up Care 08/26/2023 03:51:08 With:Radha MORFIN, Reid Junior, ISI Address: When:2 to 4 weeks Comments:Call for followup appointment With:PARRIS GUZMAN DO, FAM Address: [address] [place] [address] [address] [place] [address]- When:2 to 3 days Comments:Call for followup appointment [facility]05-20-2024 NoteEchocardiology Procedure Exam Date/Time Accession # Ordering Echo Transthoracic 08/26/2023 14:40 EDT [id number] Gaston Horton DO Complete CPT code 69043 [id number] Reason for Exam (Echo Transthoracic Complete) Chest pain Report [facility] [address] [place] [address] Adult Echocardiogram Report Name: NICOLE LOMELI Study Date: 08/26/2023 02:02 PM BP: 126/65 mmHg Patient Location: [address] HR: 79 : 1950 Gender: Female Height: 62 in Age: 72 yrs Ethnicity: [facility] Weight: 185 lb Reason For Study: Chest pain BSA: 1.9 m2 History: Smoker-Quit,COPD,Obesity Ordering Physician: Carmen Performed By: Maureen Sarabia, [facility] Interpretation Summary Left ventricular systolic function is normal. Ejection Fraction = 60-65%. The left ventricular wall motion is normal. There is no pericardial effusion. Procedure A complete two-dimensional transthoracic echocardiogram was performed (2D, M- mode, spectral and color flow Doppler). Left Ventricle The left ventricle is normal in size. There is normal left ventricular wall thickness. Left ventricular systolic function is normal. Ejection Fraction = 60-65%. The left ventricular wall motion is normal. Normal diastolic function. Left Atrium The left atrial size is normal. There is no atrial septal defect. Right Atrium Echocardiology Report Right atrial size is normal. Right Ventricle The right ventricular systolic function is normal. The right ventricle is normal size. Aortic Valve Not well visualized. No aortic regurgitation. There is no aortic stenosis. Mitral Valve Mitral valve structure is normal. There is Trace mitral regurgitation. No mitral valve stenosis. Tricuspid Valve Structurally normal tricuspid valve. There is trace tricuspid regurgitation. No evidence of tricuspid stenosis. Pulmonic Valve Not well visualized. No evidence of stenosis. There is no pulmonic valve regurgitation. Arteries The aortic root is normal in size. Normal ascending aorta. Effusion There is no pericardial effusion. MMode/2D Measurements & Calculations RVDd: 3.6 cm LVIDd: 4.3 cm FS: 39.0 % Ao root diam: 2.8 cm IVSd: 1.0 cm LVIDs: 2.6 cm EDV(Teich): 83.5 ml Ao root area: 6.2 cm2 LVPWd: 0.89 cm ESV(Teich): 25.3 ml LA dimension: 3.8 cm EF(Teich): 69.7 % asc Aorta Diam: 2.9 cm LVOT diam: 1.7 cm LVLd ap4: 7.2 cm EDV(MOD-sp2): 62.5 ml LVOT area: 2.2 cm2 EDV(MOD-sp4): 63.2 ml ESV(MOD-sp2): 22.7 ml LVLs ap4: 5.8 cm EF(MOD-sp2): 63.7 % ESV(MOD-sp4): 22.6 ml EF(MOD-sp4): 64.2 % SV(MOD-sp4): 40.6 ml TAPSE: 1.8 cm IVC Diam: 1.6 cm RA A4Cs_phl: 13.4 cm2 RV Base_phl: 3.7 cm RVIDd/LVIDd: 0.84 EF (MOD-bp): 63.9 % LA Vol Index: 13.9 ml/m2 RV Length_phl: 7.3 cm RV Mid_phl: 2.6 cm Doppler Measurements & Calculations MV E max jesus: 74.1 cm/sec MV dec time: 0.18 sec Ao V2 max: 175.1 cm/sec LV V1 max P.8 mmHg MV A max jesus: 74.4 cm/sec Ao max P.3 mmHg LV V1 max: 148.7 cm/sec MV E/A: 1.00 Lat Peak E' Jesus: 9.1 cm/sec JAS(V,D): 1.9 cm2 E/E' Lat: 8.1 Med Peak E' Jesus: 8.4 cm/sec Echocardiology Report E/E' Med: 8.8 TR max jesus: 262.8 cm/sec RAP systole: 3.0 mmHg AV VR: 0.85 TR max P.6 mmHg RVSP(TR): 30.6 mmHg FINAL REPORT Dictated: 08/26/2023 2:02 pm Reid Garcia MD Signed (Electronic Signature): 08/26/2023 4:24 pm Signed by: Reid Garcia MD Transcribed by: JUSTYN Technologist: [facility]05-20-2024 Note Chief Complaint Left sided chest pain awoke pt. from sleep. 09/15, radiated to jaw and back. non productive cough recently. History of Present Illness 72-year-old female with past medical history of chronic respiratory failure on 4 L at home at baseline, COPD, anxiety/depression, urinary incontinence, GERD, CVA, HLD, insomnia presented to ER in theearly morning of 08/25 due to sudden episode of chest pain waking her up in the middle the night. Patient stated chest pain was left lower breast area that radiated to her back and jaw. Patient statespain lasted for about an hour. Patient denies anything making it better or worse. Patient denies any history of fever chills, nausea vomiting diarrhea, worsening shortness of breath, burning with urination, cough, or other symptoms at this time. Patient denies ever having heart attack in the past. Patient states she did have cardiac catheterization done by Dr. 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 Patient states she quit smoking approximately 10 years ago. Patient denies alcohol use. Patient lives at home with In ER patient was found to have negative troponins, WBC of 17.4, CO2 of 33, Pro- Janice 0.07, chest x-ray stable. Prior to arrival EMS had given her 4 baby aspirin, 4 mg Zofran, sublingual nitro. Discussed CODE STATUS with patient would like to be full code. Review of Systems Scoring Kenr Fall Risk Score: 35 (08/26/23) Physical Exam Vitals & Measurements T: 36.7 ?C(Oral) HR: 73(Monitored) RR: 14 BP: 126/65 SpO2: 97% HT: 157.48 cm WT: 83 kg General: NAD Skin: Warm, dry Head: No trauma, normocephalic Neck: Trachea midline, supple, negative for JVD Eye: Conjunctive are clear, clear sclera , EOMI ENMT: oral mucosa moist, no lesions or edema nose or external ears Cardiovascular: Regular rate and rhythm, S1-S2 present, negative for murmurs rubs or gallops Respiratory: Lungs clear to auscultation, bilateral symmetric movement, negative for wheezes rales or rhonchi Chest wall: no deformity. Gastrointestinal: Abdomen soft, nontender to palpation, bowel sounds present Back: No tenderness Extremities: Range of motion intact, no edema Neurological: awake, alert, speech normal, cranial nerves II through XII intact, no sensory defects, alert and oriented x3 Psychiatric: cooperative, affect appropriate for age, pleasant Lab Results WBC: 17.4 E9/L High (08/26/23 04:26:00) RBC: 4 E12/L Low (08/26/23 04:26:00) HGB: 12.5 gm/dL (08/26/23 04:26:00) Hct: 37.7 % (08/26/23 04:26:00) MCV: 93.3 fL (08/26/23 04:26:00) MCH: 30.9 pg (08/26/23 04:26:00) MCHC: 33.1 gm/dL (08/26/23 04:26:00) RDW: 14.2 % (08/26/23 04:26:00) Platelet: 229 E9/L (08/26/23 04:26:00) MPV: 7.3 fL (08/26/23 04:26:00) Neutro Auto: 61.4 % (08/26/23 04:26:00) Lymph Auto: 29.7 % (08/26/23 04:26:00) Pima Auto: 7.4 % (08/26/23 04:26:00) Eos Auto: 1.3 % (08/26/23 04:26:00) Basophil Auto: 0.2 % (08/26/23 04:26:00) Neutro Absolute: 10.7 E9/L High (08/26/23 04:26:00) Lymph Absolute: 5.2 E9/L High (08/26/23 04:26:00) Pima Absolute: 1.3 E9/L High (08/26/23 04:26:00) Eos Absolute: 0.2 E9/L (08/26/23 04:26:00) Basophil Absolute: 0 E9/L (08/26/23 04:26:00) PT: 10.1 second(s) (08/26/23 04:26:00) INR: 0.9 (08/26/23 04::00) PTT: 26.8 second(s) (08/26/23 04:26:00) Glucose Lvl: 84 mg/dL (08/26/23 04:26:00) BUN: 18 mg/dL (08/26/23 04:26:00) Creatinine: 1 mg/dL (08/26/23 04:26:00) eGFR: 59 mL/min/1.73 m2 (08/26/23 04:26:00) BUN/Creat Ratio: 18 (08/26/23 04:26:00) Sodium Lvl: 139 mmol/L (08/26/23 04:26:00) Potassium Lvl: 4.2 mmol/L (08/26/23 04:26:00) Chloride: 100 mmol/L Low (08/26/23 04:26:00) CO2: 33 mmol/L High (08/26/23 04:26:00) AGAP: 10 mEq/L (08/26/23 04:26:00) Calcium Lvl: 9.1 mg/dL (08/26/23 04:26:00) CRP: 0.9 mg/dL (08/26/23 06:39:00) Troponin: 3.9 pg/mL Low (08/26/23 06:39:00) Procalcitonin: 0.07 ng/mL (08/26/23 06:39:00) Assessment/Plan Patient will be admitted under observation status due to estimated length of stay less than 2 midnights. All labs, images, EKGs reviewed DVT PPx?PAS bilaterally, heparin twice daily Diet?cardiac CODE STATUS?full code 1. Chest pain (R07.9: Chest pain, unspecified) No ischemic changes noted on EKG Telemetry Troponins negative Chest x-ray negative Check echocardiogram Consult cardio Low suspicion for PE at this time. Ordered: Initial Hospital Care/Day Moderate 55 Minutes [id number] 2. Leukocytosis (D72.829: Elevated white blood cell count, unspecified) may likely be reactive or recent prednisone use no hx of fevers,chills, cough check UA monitor no need for abx at this time 3. Nausea (R11.0: Nausea) Improved Zofran as needed 4. Chronic respiratory failure (J96.10: Chronic respiratory failure, unspecified whether with hypoxia or hypercapnia) 4 L at baseline 5. COPD (chronic obstructive pulmonary disease) (J (more content not included)...[facility] HospitalComment on above:Result Comment: Electronically Signed By: Gaston Horton DO\.br\Date and Time Signed: 08/26/23 08:44 [id number] Progress note Author Michaela Fernandez [facility] May 22, 2023 9:25am Note Date/Time May 22, 2023 9:25am [facility] [address] [place] [address] Wound Center Provider Note Signed Patient: Nicole Lomeli MR#: [id number] : 1950 Acct:[id number] Age/Sex: 72 / F Copies to: DO Michaela Hui APRN~ HPI Date of Visit Date of Visit: Date of Service: 05/22/2023 Time of Service: 09:23 Narrative HPI: 04/11/23 Nicole is a 72-year-old female presenting to [facility] wound care program for an initial visit for evaluation and treatment of a traumatic wound of her left knee where she had fallen in her home over her oxygen tubing. She does currently have home health care through [facility] and this should continue. The area was debrided today and we will utilize a honey dressing and a siliconewaterproof bandage. Nicole can return to the office in about 2 weeks. We did discuss an anti-inflammatory diet as well as some supplements that are known to support the healing process and these were included on her discharge paperwork. I do not see any signs of acute infection today. 04/24/23 better, same orders, 2 week appt, no signs or symptoms of acute infection 05/08/23 smaller again, switched to collagen powder since we have more granulation tissue showing, 2 week appt, [facility] to continue, no infection noted 05/22/23 much better, almost healed, same orders as last visit, no infection signs, 2 week appt Subjective Pain Left Knee: Pain Description: Intermittent Pain Intensity: 0 Wound/Ulcer History When did wound start?: January 17 2023 left knee from a fall Mode of Arrival/ Stencil Sprayer: Personal vehicle Lives with:: Spouse Appetite Description: Within Normal Limits Who helps w/ dressing change?: Home Health Why Do You Need Help?: Taxing effort to leave home Smoking Status: Former smoker [facility] Medical History (Updated 05/08/23 @ 09:07 by Michaela Fernandez APRN) Open wound of left knee Stroke Short-term memory loss Arthritis Incontinence COPD (chronic obstructive pulmonary disease) Anxiety Insomnia Abdominal adhesions release Hypertriglyceridemia Hypercholesterolemia Esophageal reflux Osteoporosis Surgical History History of hand surgery right History of cardiac catheterization History of bladder surgery H/O spinal fusion neck H/O oophorectomy H/O: hysterectomy H/O tubal ligation Hx of cholecystectomy Family History Father Emphysema lung Mother Stroke Emphysema lung Brother Legacy FamHx Relation: Brother(s) Diabetes Legacy FamHx Relation: Brother(s) Family history of lung cancer Legacy FamHx Relation: Brother(s) Cancer Legacy FamHx Relation: Brother(s); Legacy FamHx Problem: Diagnosed with Cancer Father Family history of emphysema Mother Hypertension History of stroke Legacy FamHx Problem: Diagnosed with Stroke Acute cerebrovascular accident (CVA) Son Sister Diabetes Social History Smoking Status: Former smoker Tobacco Type: cigarettes Substance Use Type: None Grafts History of Graft History of Graft?: No Exam Physical Exam Vital Signs: Temp Pulse Resp BP O2 Del Method O2 Flow Rate 97.6 F 92 H 20 126/82 Nasal Cannula 4 05/22/23 09:20 05/22/23 09:20 05/22/23 09:20 05/22/23 09:20 05/08/23 08:58 05/08/23 08:58 Const General: cooperative, healthy appearing, comfortable, no acute distress and wellgroomed Nutritional Appearance: obese Orientation: alert, awake and oriented x3 Lower/Upper Extremity Exam Vascular Exam-Edema Left Lower Extremity: Edema Type: Non-Pitting Vascular Exam-Pulses Left Brachial: Pulse Assessment Method: NIBP Objective Meds/Allergies Home Medications alprazolam 0.25 mg tablet (Xanax) 0.25 mg PO BID PRN Anxiety 06/11/17 [History Confirmed 04/11/23] clopidogrel 75 mg tablet (Plavix) 75 mg PO Q48H 06/11/17 [History Confirmed 04/11/23] ergocalciferol (vitamin D2) 1,250 mcg (50,000 unit) capsule (Vitamin D2) 50,000 unit PO QWEEK 06/11/17 [History Confirmed 04/11/23] fenofibrate nanocrystallized 145 mg tablet (Tricor) 145 mg PO DAILY 06/11/17 [History Confirmed 04/11/23] fluoxetine 40 mg capsule (Prozac) 40 mg PO DAILY 06/11/17 [History Confirmed 04/11/23] omeprazole 20 mg tablet,delayed release 20 mg PO DAILY 06/11/17 [History Confirmed 04/11/23] raloxifene 60 mg tablet (Evista) 60 mg PO DAILY 06/11/17 [History Confirmed 04/11/23] simvastatin 40 mg tablet 40 mg PO QHS 06/11/17 [History Confirmed 04/11/23] ipratropium 20 mcg-albuterol 100 mcg/actuation mist for inhalation (Combivent Respimat) 1 puff inhalation QID PRN Shortness Of Breath 06/14/17 [History Confirmed 04/11/23] aripiprazole 5 mg tablet (Abilify) 1 tab PO DAILY 12/25/18 [History Confirmed 04/11/23] albuterol sulfate 0.63 mg/3 mL solution for nebulization 0.83 mg inhalation QID PRN Shortness Of Breath 11/08/21 [History Confirmed 04/11/23] fluticasone furoate 100 mcg-vilanterol 25 mcg/dose inhalation powder 1 inh inhalation DAILY 04/11/23 [History Confirmed 04/11/23] hydrochlorothiazide 25 mg tablet 25 mg PO DAILY 04/11/23 [History Confirmed 04/11/23] morphine 15 mg immediate release tablet 15 mg PO DAILY 04/11/23 [History Confirmed 04/11/23] multivitamin with minerals-folic acid 80 mcg chewable tablet 1 tab PO DAILY 04/11/23 [History Confirmed 04/11/23] oxycodone-acetaminophen 10 mg-325 mg tablet (Percocet) 1 tab PO Q4H PRN Pain 04/11/23 [History Confirmed 04/11/23] sennosides 8.6 mg capsule (senna) 8.6 mg PO QHS PRN Constipation 04/11/23 [History Confirmed 04/11/23] Allergies budesonide [Symbicort] Allergy (Unknown, Verified 03/13/23 10:46) vomiting formoterol [Symbicort] Allergy (Unknown, Verified 03/13/23 10:46) vomiting No Known Allergies Allergy (Verified 04/11/23 07:05) Wound/Ulcer Left Knee: Type: Traumatic Thickness: Full Bed Appearance: Denhoff and Yellow Percent of Wound Bed Granulated/Red: 95 Percent of Devitalized: 5 Length (cm): 1.1 Width (cm): 1.3 Depth (cm): 0.1 CM Sq: 1.430 Surrounding Tissue Appearance: Hyperpigmented Surrounding Tissue Temp: Warm Drainage Amount: Scant Drainage Description: Serosanguineous Drainage Odor: No Odor Results Height: 5 ft 2 in Weight: 78.471 kg Body Mass Index: 31.6 Assessment/Plan Assessment/Plan (1) Open wound of left knee: Qualifiers: Encounter type: sequela Qualified Code(s): S81.002S - Unspecified open wound, left knee, sequela Code(s): S81.002A - Unspecified open wound, left knee, initial encounter (2) COPD (chronic obstructive pulmonary disease): Qualifiers: COPD type: unspecified COPD Qualified Code(s): J44.9 - Chronic obstructive pulmonary disease, unspecified Code(s): J44.9 - Chronic obstructive pulmonary disease, unspecified Plan see orders and hpi Time spent with patient Time Spent With Patient (min): 10 Dictated By: Michaela Fernandez APRN DD/ 0923 Signed By: <Electronically signed by CYNDY Fernandez> 05/22/23 0925 [facility] Work Phone: 1(269) 182-334902-06-2024 Evaluation note* Encounter Date Diagnosis Assessment Notes Treatment Notes Treatment Clinical Notes May, Chronic pain (ICD-10 - G89.29) OARRS reviewed, consistent with Rx. Nicole reports adequate pain control with current medication regimen and no changes are made today. Continue Morphine ER 15 mg without change ( pt will call when needs refill as she uses a Good Rx card and has to decide which pharmacy it will go to monthly) Continue Percocet 10/325 mg every 4-6 hrs PRN without change (pt will call when needs refill) RTO 2 months May, COPD (chronic obstructive pulmonary disease) (ICD-10 - J44.9) Pt encouraged to follow up with Dr. Guzman regarding recent increase in SOB [employer] Other 01-31-2024 Progress note Author Michaela Fernandez [facility] May 08, 2023 9:07am Note Date/Time May 08, 2023 9 :06am [facility] [address] [place] [address] Wound Center Provider Note Signed Patient: Nicole Lomeli MR#: [id number] : 1950 Acct:[id number] Age/Sex: 72 / F Copies to: DO Michaela Hui APRN~ HPI Date of Visit Date of Visit: Date of Service: 05/08/2023 Time of Service: 09:05 Narrative HPI: 04/11/23 Nicole is a 72-year-old female presenting to [facility] wound care program for an initial visit for evaluation and treatment of a traumatic wound of her left knee where she had fallen in her home over her oxygen tubing. She does currently have home health care through [facility] and this should continue. The area was debrided today and we will utilize a honey dressing and a siliconewaterproof bandage. Nicole can return to the office in about 2 weeks. We did discuss an anti-inflammatory diet as well as some supplements that are known to support the healing process and these were included on her discharge paperwork. I do not see any signs of acute infection today. 04/24/23 better, same orders, 2 week appt, no signs or symptoms of acute infection 05/08/23 smaller again, switched to collagen powder since we have more granulation tissue showing, 2 week appt, [facility] to continue, no infection noted Subjective Pain Left Knee: Pain Intensity: 0 Pain Management Techniques Other/Comment: Stings Wound/Ulcer History When did wound start?: January 17 2023 left knee from a fall Mode of Arrival/ Stencil Sprayer: Personal vehicle Lives with:: Spouse Appetite Description: Within Normal Limits Who helps w/ dressing change?: Home Health Why Do You Need Help?: Taxing effort to leave home Smoking Status: Former smoker [facility] Medical History (Updated 05/08/23 @ 09:07 by Michaela Fernandez APRN) Open wound of left knee Stroke Short-term memory loss Arthritis Incontinence COPD (chronic obstructive pulmonary disease) Anxiety Insomnia Abdominal adhesions release Hypertriglyceridemia Hypercholesterolemia Esophageal reflux Osteoporosis Surgical History History of hand surgery right History of cardiac catheterization History of bladder surgery H/O spinal fusion neck H/O oophorectomy H/O: hysterectomy H/O tubal ligation Hx of cholecystectomy Family History Father Emphysema lung Mother Stroke Emphysema lung Social History Smoking Status: Former smoker Tobacco Type: cigarettes Substance Use Type: None Grafts History of Graft History of Graft?: No Exam Physical Exam Vital Signs: Temp Pulse Resp BP O2 Del Method O2 Flow Rate 97.3 F L 87 24 147/87 H Nasal Cannula 4 05/08/23 08:58 05/08/23 08:58 05/08/23 08:58 05/08/23 08:58 05/08/23 08:58 05/08/23 08:58 Const General: cooperative, healthy appearing, comfortable, no acute distress and wellgroomed Nutritional Appearance: obese Orientation: alert, awake and oriented x3 Lower/Upper Extremity Exam Vascular Exam-Edema Left Lower Extremity: Edema Type: Non-Pitting Vascular Exam-Pulses Left Brachial: Pulse Assessment Method: NIBP Objective Meds/Allergies Home Medications alprazolam 0.25 mg tablet (Xanax) 0.25 mg PO BID PRN Anxiety 06/11/17 [History Confirmed 04/11/23] clopidogrel 75 mg tablet (Plavix) 75 mg PO Q48H 06/11/17 [History Confirmed 04/11/23] ergocalciferol (vitamin D2) 1,250 mcg (50,000 unit) capsule (Vitamin D2) 50,000 unit PO QWEEK 06/11/17 [History Confirmed 04/11/23] fenofibrate nanocrystallized 145 mg tablet (Tricor) 145 mg PO DAILY 06/11/17 [History Confirmed 04/11/23] fluoxetine 40 mg capsule (Prozac) 40 mg PO DAILY 06/11/17 [History Confirmed 04/11/23] omeprazole 20 mg tablet,delayed release 20 mg PO DAILY 06/11/17 [History Confirmed 04/11/23] raloxifene 60 mg tablet (Evista) 60 mg PO DAILY 06/11/17 [History Confirmed 04/11/23] simvastatin 40 mg tablet 40 mg PO QHS 06/11/17 [History Confirmed 04/11/23] ipratropium 20 mcg-albuterol 100 mcg/actuation mist for inhalation (Combivent Respimat) 1 puff inhalation QID PRN Shortness Of Breath 06/14/17 [History Confirmed 04/11/23] aripiprazole 5 mg tablet (Abilify) 1 tab PO DAILY 12/25/18 [History Confirmed 04/11/23] albuterol sulfate 0.63 mg/3 mL solution for nebulization 0.83 mg inhalation QID PRN Shortness Of Breath 11/08/21 [History Confirmed 04/11/23] fluticasone furoate 100 mcg-vilanterol 25 mcg/dose inhalation powder 1 inh inhalation DAILY 04/11/23 [History Confirmed 04/11/23] hydrochlorothiazide 25 mg tablet 25 mg PO DAILY 04/11/23 [History Confirmed 04/11/23] morphine 15 mg immediate release tablet 15 mg PO DAILY 04/11/23 [History Confirmed 04/11/23] multivitamin with minerals-folic acid 80 mcg chewable tablet 1 tab PO DAILY 04/11/23 [History Confirmed 04/11/23] oxycodone-acetaminophen 10 mg-325 mg tablet (Percocet) 1 tab PO Q4H PRN Pain 04/11/23 [History Confirmed 04/11/23] sennosides 8.6 mg capsule (senna) 8.6 mg PO QHS PRN Constipation 04/11/23 [History Confirmed 04/11/23] Allergies No Known Allergies Allergy (Verified 04/11/23 07:05) Wound/Ulcer Left Knee: Type: Traumatic Thickness: Full Bed Appearance: Denhoff and Yellow Percent of Wound Bed Granulated/Red: 5 Percent of Devitalized: 95 Length (cm): 1.7 Width (cm): 2.5 Depth (cm): 0.1 CM Sq: 4.250 Surrounding Tissue Appearance: Hyperpigmented Surrounding Tissue Temp: Warm Drainage Amount: Moderate Drainage Description: Serosanguineous Drainage Odor: No Odor Lidocaine Applied Topically: 2% Jelly Procedures Time Out: 2 Patient Identifiers, Correct Patient, Correct Side/Site, Correct Procedure and Safety Issues Reviewed Procedure: The left knee wound was anesthetized with topical 2% lidocaine gel. A curette was used to perform debridement for the removal of 3 cm? of devitalized tissue consisting of skin and slough. Debridement was down to healthy bleeding tissue. Estimated blood loss was minimal. Hemostasis was achieved by applying pressure. The left knee wound now appears more pink and less yellow and the size remains the same. The patient tolerated well with no pain. Results Height: 5 ft 2 in Weight: 78.471 kg Body Mass Index: 31.6 Assessment/Plan Assessment/Plan (1) Open wound of left knee: Qualifiers: Encounter type: sequela Qualified Code(s): S81.002S - Unspecified open wound, left knee, sequela Code(s): S81.002A - Unspecified open wound, left knee, initial encounter (2) COPD (chronic obstructive pulmonary disease): Qualifiers: COPD type: unspecified COPD Qualified Code(s): J44.9 - Chronic obstructive pulmonary disease, unspecified Code(s): J44.9 - Chronic obstructive pulmonary disease, unspecified Plan see orders and hpi Time spent with patient Time Spent With Patient (min): 12 Dictated By: Michaela Fernandez APRN DD/ 0905 Signed By: <Electronically signed by CYNDY Fernandez> 05/08/23 0907 [facility] Work Phone: 1(425) 466-100701-30-2024 Evaluation note* Encounter Date Diagnosis Assessment Notes Treatment Notes Treatment Clinical Notes Apr, Chronic pain (ICD-10 - G89.29) OARRS reviewed, consistent with Rx [employer] Other 01-17-2024 Progress note Author Michaela Fernandez [facility] April 24, 2023 11:49am Note Date/Time April 24, 2023 1 1:48am [facility] [address] [place] [address] Wound Center Provider Note Signed Patient: Nicole Lomeli MR#: [id number] : 1950 Acct:[id number] Age/Sex: 72 / F Copies to: Parris Guzman,DO Michaela Fernandez APRN~ HPI Date of Visit Date of Visit: Date of Service: 04/24/2023 Time of Service: 11:47 Narrative HPI: 04/11/23 Nicole is a 72-year-old female presenting to [facility] wound care program for an initial visit for evaluation and treatment of a traumatic wound of her left knee where she had fallen in her home over her oxygen tubing. She does currently have home health care through [facility] and this should continue. The area was debrided today and we will utilize a honey dressing and a siliconewaterproof bandage. Nicole can return to the office in about 2 weeks. We did discuss an anti-inflammatory diet as well as some supplements that are known to support the healing process and these were included on her discharge paperwork. I do not see any signs of acute infection today. 04/24/23 better, same orders, 2 week appt, no signs or symptoms of acute infection Subjective Pain Left Knee: Pain Intensity: 0 Wound/Ulcer History When did wound start?: January 17 2023 left knee from a fall Mode of Arrival/ Stencil Sprayer: Personal vehicle Lives with:: Spouse Appetite Description: Within Normal Limits Who helps w/ dressing change?: Home Health Why Do You Need Help?: Taxing effort to leave home Smoking Status: Former smoker [facility] Medical History (Updated 04/24/23 @ 11:49 by Michaela Fernandez APRN) Open wound of left knee Stroke Short-term memory loss Arthritis Incontinence COPD (chronic obstructive pulmonary disease) Anxiety Insomnia Abdominal adhesions release Hypertriglyceridemia Hypercholesterolemia Esophageal reflux Osteoporosis Surgical History History of hand surgery right History of cardiac catheterization History of bladder surgery H/O spinal fusion neck H/O oophorectomy H/O: hysterectomy H/O tubal ligation Hx of cholecystectomy Family History Father Emphysema lung Mother Stroke Emphysema lung Social History Smoking Status: Former smoker Tobacco Type: cigarettes Substance Use Type: None Grafts History of Graft History of Graft?: No Exam Physical Exam Vital Signs: Temp Pulse Resp BP O2 Del Method O2 Flow Rate 96.6 F L 91 H 18 150/87 H Room Air 4 04/24/23 11:30 04/24/23 11:30 04/24/23 11:30 04/24/23 11:30 04/24/23 11:30 04/11/23 07:05 Const General: cooperative, healthy appearing, comfortable, no acute distress and wellgroomed Nutritional Appearance: obese Orientation: alert, awake and oriented x3 Lower/Upper Extremity Exam Vascular Exam-Edema Left Lower Extremity: Edema Degree: 2+ Edema Type: Non-Pitting Vascular Exam-Pulses Left Brachial: Pulse Assessment Method: NIBP Objective Meds/Allergies Home Medications alprazolam 0.25 mg tablet (Xanax) 0.25 mg PO BID PRN Anxiety 06/11/17 [History Confirmed 04/11/23] clopidogrel 75 mg tablet (Plavix) 75 mg PO Q48H 06/11/17 [History Confirmed 04/11/23] ergocalciferol (vitamin D2) 1,250 mcg (50,000 unit) capsule (Vitamin D2) 50,000 unit PO QWEEK 06/11/17 [History Confirmed 04/11/23] fenofibrate nanocrystallized 145 mg tablet (Tricor) 145 mg PO DAILY 06/11/17 [History Confirmed 04/11/23] fluoxetine 40 mg capsule (Prozac) 40 mg PO DAILY 06/11/17 [History Confirmed 04/11/23] omeprazole 20 mg tablet,delayed release 20 mg PO DAILY 06/11/17 [History Confirmed 04/11/23] raloxifene 60 mg tablet (Evista) 60 mg PO DAILY 06/11/17 [History Confirmed 04/11/23] simvastatin 40 mg tablet 40 mg PO QHS 06/11/17 [History Confirmed 04/11/23] ipratropium 20 mcg-albuterol 100 mcg/actuation mist for inhalation (Combivent Respimat) 1 puff inhalation QID PRN Shortness Of Breath 06/14/17 [History Confirmed 04/11/23] aripiprazole 5 mg tablet (Abilify) 1 tab PO DAILY 12/25/18 [History Confirmed 04/11/23] albuterol sulfate 0.63 mg/3 mL solution for nebulization 0.83 mg inhalation QID PRN Shortness Of Breath 11/08/21 [History Confirmed 04/11/23] fluticasone furoate 100 mcg-vilanterol 25 mcg/dose inhalation powder 1 inh inhalation DAILY 04/11/23 [History Confirmed 04/11/23] hydrochlorothiazide 25 mg tablet 25 mg PO DAILY 04/11/23 [History Confirmed 04/11/23] morphine 15 mg immediate release tablet 15 mg PO DAILY 04/11/23 [History Confirmed 04/11/23] multivitamin with minerals-folic acid 80 mcg chewable tablet 1 tab PO DAILY 04/11/23 [History Confirmed 04/11/23] oxycodone-acetaminophen 10 mg-325 mg tablet (Percocet) 1 tab PO Q4H PRN Pain 04/11/23 [History Confirmed 04/11/23] sennosides 8.6 mg capsule (senna) 8.6 mg PO QHS PRN Constipation 04/11/23 [History Confirmed 04/11/23] Allergies No Known Allergies Allergy (Verified 04/11/23 07:05) Wound/Ulcer Left Knee: Type: Traumatic Thickness: Full Bed Appearance: Denhoff and Yellow Percent of Wound Bed Granulated/Red: 5 Percent of Devitalized: 95 Length (cm): 2.0 Width (cm): 3.0 Depth (cm): 0.1 CM Sq: 6.000 Surrounding Tissue Appearance: Hyperpigmented Surrounding Tissue Temp: Warm Drainage Amount: Moderate Drainage Description: Serosanguineous Drainage Odor: No Odor Lidocaine Applied Topically: 2% Jelly Procedures Time Out: 2 Patient Identifiers, Correct Patient, Correct Side/Site, Correct Procedure and Safety Issues Reviewed Procedure: The left knee wound was anesthetized with topical 2% lidocaine gel. A curette was used to perform debridement for the removal of 4 cm? of devitalized tissue consisting of skin and slough. Debridement was down to healthy bleeding tissue. Estimated blood loss was minimal. Hemostasis was achieved by applying pressure. The left knee wound now appears more pink and less yellow and the size remains the same. The patient tolerated well with no pain. Results Height: 5 ft 2 in Weight: 78.471 kg Body Mass Index: 31.6 Assessment/Plan Assessment/Plan (1) Open wound of left knee: Qualifiers: Encounter type: initial encounter Qualified Code(s): S81.002A - Unspecified open wound, left knee, initial encounter Code(s): S81.002A - Unspecified open wound, left knee, initial encounter (2) COPD (chronic obstructive pulmonary disease): Qualifiers: COPD type: unspecified COPD Qualified Code(s): J44.9 - Chronic obstructive pulmonary disease, unspecified Code(s): J44.9 - Chronic obstructive pulmonary disease, unspecified Plan see orders and hpi Time spent with patient Time Spent With Patient (min): 10 Dictated By: Michaela Fernandez APRN DD/ 46 Signed By: <Electronically signed by CYNDY Fernandez> 04/24/23 1149 [facility] Work Phone: [phone]) 903-174801-10-2024 Evaluation note* Encounter Date Diagnosis Assessment Notes Treatment Notes Treatment Clinical Notes Apr, Chronic pain (ICD-10 - G89.29) OARRS reviewed, consistent with Rx [facility] 01-04-2024 Progress note Author Michaela Fernandez [facility] April 11, 2023 7:24am Note Date/Time April 11, 2023 7: 24am [facility] [address] [place] [address] Wound Center Provider Note Signed Patient: Nicole Lomeli MR#: [id number] : 1950 Acct:[id number] Age/Sex: 72 / F Copies to: Parris Guzman,DO Michaela Fernandez APRN~ HPI Date of Visit Date of Visit: Date of Service: 04/11/2023 Time of Service: 07:19 Narrative HPI: 04/11/23 Nicole is a 72-year-old female presenting to [facility] wound care program for an initial visit for evaluation and treatment of a traumatic wound of her left knee where she had fallen in her home over her oxygen tubing. She does currently have home health care through [facility] and this should continue. The area was debrided today and we will utilize a honey dressing and a siliconewaterproof bandage. Nicole can return to the office in about 2 weeks. We did discuss an anti-inflammatory diet as well as some supplements that are known to support the healing process and these were included on her discharge paperwork. I do not see any signs of acute infection today. Subjective Pain Left Knee: Pain Intensity: 0 Wound/Ulcer History When did wound start?: January 17 2023 left knee from a fall Mode of Arrival/ Stencil Sprayer: Personal vehicle Lives with:: Spouse Appetite Description: Within Normal Limits Who helps w/ dressing change?: Home Health Why Do You Need Help?: Taxing effort to leave home Smoking Status: Former smoker [facility] Medical History (Updated 04/11/23 @ 07:22 by Michaela Fernandez APRN) Abdominal adhesions release Anxiety Arthritis COPD (chronic obstructive pulmonary disease) Esophageal reflux Hypercholesterolemia Hypertriglyceridemia Incontinence Insomnia Open wound of left knee Osteoporosis Short-term memory loss Stroke Surgical History H/O oophorectomy H/O spinal fusion neck H/O tubal ligation H/O: hysterectomy History of bladder surgery History of cardiac catheterization History of hand surgery right Hx of cholecystectomy Family History Father Emphysema lung Mother Stroke Emphysema lung Social History Smoking Status: Former smoker Tobacco Type: cigarettes Substance Use Type: None Grafts History of Graft History of Graft?: No Exam Physical Exam Vital Signs: Temp Pulse Resp BP O2 Del Method O2 Flow Rate 96.6 F L 86 20 132/66 Nasal Cannula 4 04/11/23 07:05 04/11/23 07:05 04/11/23 07:05 04/11/23 07:05 04/11/23 07:05 04/11/23 07:05 Const General: cooperative, healthy appearing, comfortable, no acute distress and wellgroomed Nutritional Appearance: obese Orientation: alert, awake and oriented x3 Lower/Upper Extremity Exam Vascular Exam-Edema Left Lower Extremity: Edema Degree: 2+ Edema Type: Pitting Vascular Exam-Pulses Left Brachial: Pulse Assessment Method: NIBP Objective Meds/Allergies Home Medications alprazolam 0.25 mg tablet (Xanax) 0.25 mg PO BID PRN Anxiety 06/11/17 [History Confirmed 04/11/23] clopidogrel 75 mg tablet (Plavix) 75 mg PO Q48H 06/11/17 [History Confirmed 04/11/23] ergocalciferol (vitamin D2) 1,250 mcg (50,000 unit) capsule (Vitamin D2) 50,000 unit PO QWEEK 06/11/17 [History Confirmed 04/11/23] fenofibrate nanocrystallized 145 mg tablet (Tricor) 145 mg PO DAILY 06/11/17 [History Confirmed 04/11/23] fluoxetine 40 mg capsule (Prozac) 40 mg PO DAILY 06/11/17 [History Confirmed 04/11/23] omeprazole 20 mg tablet,delayed release 20 mg PO DAILY 06/11/17 [History Confirmed 04/11/23] raloxifene 60 mg tablet (Evista) 60 mg PO DAILY 06/11/17 [History Confirmed 04/11/23] simvastatin 40 mg tablet 40 mg PO QHS 06/11/17 [History Confirmed 04/11/23] ipratropium 20 mcg-albuterol 100 mcg/actuation mist for inhalation (Combivent Respimat) 1 puff inhalation QID PRN Shortness Of Breath 06/14/17 [History Confirmed 04/11/23] aripiprazole 5 mg tablet (Abilify) 1 tab PO DAILY 12/25/18 [History Confirmed 04/11/23] albuterol sulfate 0.63 mg/3 mL solution for nebulization 0.83 mg inhalation QID PRN Shortness Of Breath 11/08/21 [History Confirmed 04/11/23] fluticasone furoate 100 mcg-vilanterol 25 mcg/dose inhalation powder 1 inh inhalation DAILY 04/11/23 [History Confirmed 04/11/23] morphine 15 mg immediate release tablet 15 mg PO DAILY 04/11/23 [History Confirmed 04/11/23] multivitamin with minerals-folic acid 80 mcg chewable tablet 1 tab PO DAILY 04/11/23 [History Confirmed 04/11/23] oxycodone-acetaminophen 10 mg-325 mg tablet (Percocet) 1 tab PO Q4H PRN Pain 04/11/23 [History Confirmed 04/11/23] sennosides 8.6 mg capsule (senna) 8.6 mg PO QHS PRN Constipation 04/11/23 [History Confirmed 04/11/23] Allergies No Known Allergies Allergy (Verified 04/11/23 07:05) Wound/Ulcer Left Knee: Type: Traumatic Thickness: Full Bed Appearance: Brown, Denhoff and Yellow Percent of Wound Bed Granulated/Red: 5 Percent of Devitalized: 95 Length (cm): 2.8 Width (cm): 3.4 Depth (cm): 0.1 CM Sq: 9.520 Surrounding Tissue Appearance: Hyperpigmented Surrounding Tissue Temp: Warm Drainage Amount: Moderate Drainage Description: Serosanguineous Drainage Odor: No Odor Lidocaine Applied Topically: 2% Jelly Procedures Time Out: 2 Patient Identifiers, Correct Patient, Correct Side/Site, Correct Procedure and Safety Issues Reviewed Procedure: The left knee wound was anesthetized with topical 2% lidocaine gel. A curette and scalpel and forcep was used to perform debridement for the removal of 4 cm? of devitalized tissue consisting of skin and slough. Debridement was down to healthy bleeding tissue. Estimated blood loss was minimal. Hemostasis was achieved by applying pressure. The left knee wound now appears more pink and less yellow and brown and the size remains the same. The patient tolerated wellwith no pain. Results Height: 5 ft 2 in Weight: 78.471 kg Body Mass Index: 31.6 Assessment/Plan Assessment/Plan (1) Open wound of left knee: Qualifiers: Encounter type: initial encounter Qualified Code(s): S81.002A - Unspecified open wound, left knee, initial encounter Code(s): S81.002A - Unspecified open wound, left knee, initial encounter (2) COPD (chronic obstructive pulmonary disease): Code(s): J44.9 - Chronic obstructive pulmonary disease, unspecified Plan see orders and hpi Time spent with patient Time Spent With Patient (min): 18 Dictated By: Michaela Fernandez APRN DD/ 0719 Signed By: <Electronically signed by CYNDY Fernandez> 01/04/24 0724 [facility] Work Phone: [phone]) 567-349612-27-2023 Evaluation note* Encounter Date Diagnosis Assessment Notes Treatment Notes Treatment Clinical Notes Mar, Chronic pain (ICD-10 - G89.29) OARRS reviewed, consistent with Rx [facility] 12-08-2023 Evaluation note* Encounter Date Diagnosis Assessment Notes Treatment Notes Treatment Clinical Notes Mar, Thrush, oral (ICD-10 - B37.0) Mar, Wheeze (ICD-10 - R06.2) Mar, COPD (chronic obstructive pulmonary disease) (ICD-10 - J44.9) [facility] 12-08-2023 Evaluation note* Encounter Date Diagnosis Assessment Notes Treatment Notes Treatment Clinical Notes Mar, Thrush, oral (ICD-10 - B37.0) Mar, COPD (chronic obstructive pulmonary disease) (ICD-10 - J44.9) [facility] 12-06-2023 Evaluation note* Encounter Date Diagnosis Assessment Notes Treatment Notes Treatment Clinical Notes Mar, Thrush, oral (ICD-10 - B37.0) E Rx sent. Certainly patient to call with results. Mar, COPD without exacerbation (ICD-10 - J44.9) Pt to contact office after Apr 08 - would be happy to RX Pulm Rehab. [facility] 12-06-2023 Evaluation note* Encounter Date Diagnosis Assessment Notes Treatment Notes Treatment Clinical Notes Mar, Chronic pain (ICD-10 - G89.29) [facility] 12-05-2023 Evaluation note* Encounter Date Diagnosis Assessment Notes Treatment Notes Treatment Clinical Notes Mar, Chronic pain (ICD-10 - G89.29) OARRS reviewed, consistent with Rx. MME 70-90 mg/day (calculated per pt report). Nicole reports good pain control with current opioid regimen without excessive sedation or constipation. She is tolerating activity fairly well and utilizes PRN Percocet appropriately. Continue Morphine ER 15 mg BID without change ( reminder set) Continue Percocet 10/325 mg q4-6h PRN without change (she will call when she is in need) RTO 2 months Mar, COPD (chronic obstructive pulmonary disease) (ICD-10 - J44.9) O2 dependent, follows with Dr. Guzman Would like referral to [facility] Pulmonary Rehab after the first of the year using PFT from September ([facility]) [facility] Other 12-05-2023 Evaluation note* Encounter Date Diagnosis Assessment Notes Treatment Notes Treatment Clinical Notes Mar, Chronic pain (ICD-10 - G89.29) OARRS reviewed, consistent with Rx [facility] 12-05-2023 Evaluation note* Encounter Date Diagnosis Assessment Notes Treatment Notes Treatment Clinical Notes Mar, Chronic pain (ICD-10 - G89.29) Resending medication to [facility] Other 11-29-2023 Evaluation note* Encounter Date Diagnosis Assessment Notes Treatment Notes Treatment Clinical Notes Feb, Chronic pain (ICD-10 - G89.29) OARRS reviewed, consistent with Rx [facility] 11-17-2023 Evaluation note* Encounter Date Diagnosis Assessment Notes Treatment Notes Treatment Clinical Notes Feb, Chronic pain (ICD-10 - G89.29) OARRS reviewed, consistent with Rx [facility] 11-09-2023 Evaluation note* Encounter Date Diagnosis Assessment Notes Treatment Notes Treatment Clinical Notes Feb, Chronic pain (ICD-10 - G89.29) [facility] 11-07-2023 Evaluation note* Encounter Date Diagnosis Assessment Notes Treatment Notes Treatment Clinical Notes Feb, Chronic pain (ICD-10 - G89.29) [facility] 11-06-2023 Evaluation note* Encounter Date Diagnosis Assessment Notes Treatment Notes Treatment Clinical Notes Feb, Laceration of left knee, subsequent encounter (ICD-10 - S81.012D) Lengthy 30+ minute discussion with patient and today that I think that this looks actually quite quite good, and we will continue to monitor. I would like her to start leaving this open to air and start introducing some flexion, just by drawing her foot back along the ground. She is going to notice quite a bit of stiffness in this joint, due to the fact that is been really rather straight now for a number of weeks. She will call with any concerns. [facility] 11-02-2023 Evaluation note* Encounter Date Diagnosis Assessment Notes Treatment Notes Treatment Clinical Notes Feb, Chronic pain (ICD-10 - G89.29) [facility] 10-27-2023 Evaluation note* Encounter Date Diagnosis Assessment Notes Treatment Notes Treatment Clinical Notes Jan, Flu vaccine need (ICD-10 - Z23) Jan, Laceration of left knee, subsequent encounter (ICD-10 - S81.012D) Lengthy appointment with patient and today. Removal of the 13 ching, placement of Steri-Strips. We talked at great length, 30+ minutes, about what to offer moving forward. I would suggest she needs to start introducing some motion to this knee, slowly increasing flexion. Call with any concerns or change. [facility] 10-26-2023 Evaluation note* Encounter Date Diagnosis Assessment Notes Treatment Notes Treatment Clinical Notes Jan, Chronic pain (ICD-10 - G89.29) OARRS reviewed, consistent with Rx. Nicole reports improvement in pain control and shortness of breath with titration of long-acting MSER to 30 mg/day. She continues to utilize Percocet 10/325 q4-5h due to knee pain secondary to injury. This will decrease with wound healing I believe. [facility] 10-24-2023 Evaluation note* Encounter Date Diagnosis Assessment Notes Treatment Notes Treatment Clinical Notes Jan, Pain in left knee (ICD-10 - M25.562) Jan, Effusion, left knee (ICD-10 - M25.462) [facility] 10-16-2023 Evaluation note* Encounter Date Diagnosis Assessment Notes Treatment Notes Treatment Clinical Notes Jan, Chronic pain (ICD-10 - G89.29) OARRS reviewed, consistent with Rx. Nicole reports improved pain control and less SOB with titration of MSER to 30 mg daily in divided doses. She is taking Percocet q4h due to severity of knee pain s/p fall with deep laceration. Jan, Constipation (ICD-10 - K59.00) [facility] 10-13-2023 Evaluation note* Encounter Date Diagnosis Assessment Notes Treatment Notes Treatment Clinical Notes Jan, Chronic pain (ICD-10 - G89.29) OARRS reviewed, consistent with Rx. Nicole reports good tolerance and effect with MSER 15 mg taken at HS and agrees to increase to BID starting tomorrow. She fell last evening and suffered a deep knee laceration requiring internal sutures and stables. Will increase frequency of Percocet to q4h for the additional knee pain and she/spouse were instructed on use, safety and likely ability to decrease use of short-acting opioid after she achieves steady state of MSER. She has discontinued use of zolpidem with addition of MSER. Will recheck by phone early next week. [facility] 10-05-2023 Evaluation note* Encounter Date Diagnosis Assessment Notes Treatment Notes Treatment Clinical Notes Jan, COPD (chronic obstructive pulmonary disease) (ICD-10 - J44.9) O2 dependent, does not follow with pulmonology, recent hospitalization for severe exacerbation and was enrolled in hospice. She has improved to near her baseline and revoked hospice benefit - does not feel she is approaching end of life, doesn't need help at home and is interested in pursuing pulmonary rehab. Upon assessment today, she does not appear to meet eligibility criteria: Dyspnea at rest and/or with minimal exertion while on O2 therapy Dyspnea unresponsive or poorly responsive to bronchodilator therapy Progression of chronic pulmonary disease as evidenced by one or more of the following: *frequent use of medical services (ER, hospital, Dr visits) *frequent episodes of bronchitis or pneumonia *unintentional weight loss over preceding months *progressive inability to independently perform various ADLs or increasing dependency in ADLs Supportive abnormal lab findings: *FEV1 </= 30% predicted post bronchodilator serial decreases in FEV1 of at least 40 ml/yr over several years PO2 </= 55 on RA O2 sat </= 88% on RA persistent PCO2 >/= 50 mm HG Jan, Encounter for palliative care (ICD-10 - Z51.5) Nicole and her agree to follow with palliative care (following revocation of hospice benefit) to assist with symptom management, goals of care/advanced care planning and additonal support. Jan, Chronic pain (ICD-10 - G89.29) OARRS reviewed, consistent with recent opioid & benzodiazepine Rx from hospice physician, including MSER 30 mg tablets, MSIR 20 mg/ml, Percocet 10/325 tablets, lorazepam 1 mg tablets. Previously, Nicole has been prescribed Percocet 5/325 tabs, zolpidem 10 mg tabs (alf). Nicole experiences chronic low back pain secondary to back surgery and exertional dyspnea, both of which interfere with activity, though back pain tends to be more responsible for her physical limitations and does impair rest/sleep. Opioid Informed Consent and Agreement reviewed and signed today. We had a lengthy discussion about treating the chronic back pain and dyspnea as Nicole is fearful of morphine after her experience with higher dose in hospice care. She agrees to trial lower dose MSER 15 mg tab at HS and use Percocet during the day. Start trial of Morphine ER 15 mg at bedtime Continue Oxycodone- Acetaminophen 10/325 mg TID Hold Ambien for now - is not currently using alprazolam F/U one week via tele check in to reassess symptoms [facility] 10-02-2023 Evaluation note* Encounter Date Diagnosis Assessment Notes Treatment Notes Treatment Clinical Notes Jan, Insomnia, unspecified (ICD-10 - G47.00) [facility] 09-21-2023 Evaluation note* Encounter Date Diagnosis Assessment Notes Treatment Notes Treatment Clinical Notes Dec, COPD without exacerbation (ICD-10 - J44.9) Very lengthy 45+ minute discussion with patient//daugh ter today. I am not convinced that patient really is appropriate for hospice at this time. Certainly the diagnosis of COPD, especially end-stage COPD is tenuous at best. Here today patient is back to her normal baseline, and I also agree with the discontinuation of the medications that were started by hospice. We talked at great length about all of her options for her COPD. I feel that she would benefit from from pulmonary rehab, but also a review by palliative care. Interestingly, she is not on an inhaled steroid at this moment, but I do see that the Symbicort causes vomiting. I think may be moving forward, we could consider some sort of inhaled steroid, even if this might be a nebulizer steroid. I will also talk to palliative care directly to see if there is any utility/protocol for removing patient from hospice care. Patient//daugh ter are rather appreciative of all of our help today and we will follow closely. [facility] 09-14-2023 Evaluation note* Encounter Date Diagnosis Assessment Notes Treatment Notes Treatment Clinical Notes Dec, COPD without exacerbation (ICD-10 - J44.9) Certainly this is something that we need to sit down and discuss in person. We will review her history and most recent hospital documentation. Patient and voiced agreement and understanding. [facility] 09-12-2023 Evaluation + Plan note Diagnostic Tests Pending * Urine Culture 12/18/22 [facility]08-26-2023 NoteAdmission and Discharge Information Admit Date/Time:11/26/2022 12:09 Admitting Physician - FREDRICK MORFIN, Tariq Consulting Physician - Francisco Dill Jr., PA-C Admitting Diagnoses: Discharge Order Date Discharge Patient - Ordered -- 11/29/22 16:42:00 EDT, To home with [facility] Discharge Diagnoses 1. Acute on chronic respiratory failure with hypoxia, 11/25/2022 2. Acute exacerbation of chronic obstructive pulmonary disease (COPD), 11/25/2022 3. Other chest pain, 11/25/2022 4. Hyperlipidemia, 11/25/2022 5. History of CVA in adulthood, 11/25/2022 6. Depression with anxiety, 11/25/2022 7. Chronic GERD, 11/25/2022 8. Obesity due to excess calories, 11/25/2022 9. No contraindication to deep vein thrombosis (DVT) prophylaxis, 11/25/2022 Chest pain, 11/25/2022 Cough, 11/25/2022 Decreased oxygen level, 11/25/2022 Shortness of breath, 11/25/2022 Procedure History Cardiac catheterization, left heart (12/09/2019), trans-oburator mid uretheral sling bladder suspension (10/15/2018), Appendectomy, Cholecystectomy, Thumb. Hospital Course Significant Findings Please refer to history and physical for details of admission. Patient presented to the emergency room November 25 because of shortness of breath and chest pain forthe last 4 days. She typically wears oxygen at home 3 to 4 L with a history of COPD. She has a cough productive of yellowish-green phlegm but denies any fevers. She is short of breath at rest and with exertion. She usually wears 3 L but she did turn it up to 4 L at home. There are some substernal chest pressure intermittently nonradiating with nausea but no vomiting and no abdominal pain or GI complaints otherwise. No complaints. She came into the ED to be evaluated. In the emergency room vital signs were stable but she was 90% on her O2. She had a white count of 17.3 with a neutrophilic shift and her H&H is 11.6 and 33.9. Coags are unremarkable. BMP is negative. ABG on 32% FiO2 shows a pH of 7.37, PCO2 47.7, PO2 59.9, bicarb 25.8 with a saturation of 91.8%. Chest x-ray is nonacute. She is admitted to the medical service for evaluation. On the medical service she was admitted for acute on chronic respiratory failure with hypoxia secondary to COPD and community-acquired pneumonia. CT of the chest was ordered and there was no evidenceof PE but findings were consistent with bronchitis/bronchopneumonia. She was started on ceftriaxoneand oral azithromycin along with IV Solu-Medrol and DuoNebs. She was given supplemental O2 as well and pulmonology was consulted. She was also ruled out for ACS with troponins which all came back negative. Patient was having occasional panic attacks over home Xanax and Abilify were reported. Pulmonology saw the patient in consultation and get a respiratory panel which came back negative. She was weanedback to her normal O2 however she continued of chest pain that sounded more like costochondritis and pleurisy. Did not have much response to nonsteroidals. We did another cardiac/troponin work-up andthey came back negative as well. We did a 2D echocardiogram that was completely within normal limits. She was initially listed as a full code. In discussion with the the patient, and the daughter [place] he was recommended to get [facility] hospice on board. They saw the familyand the patient in consult and she is discharged home with hospice in place. Her chest pain did resolve and now she was having back pain but that is chronic. Procedures and Treatment Provided Care1. CT of the chest 2. Pulmonology consult 3. 2D echocardiogram 4. Sodium care consult Services Consulted Consult to Clinical [facility] - Completed -- 11/25/22 17:25:00 EDT, Consult Reason Discharge Planning Consult to Pulmonology - Ordered -- 11/25/22 17:25:00 EDT, COPD, Consult and Co-manage Hospice Consult - Completed -- 11/28/22 12:06:00 EDT, COPD, [facility] hospice requested, Consult and Co-manage Physical Exam Vitals & Measurements T: 36.6 ?C(Axillary) TMIN: 36.3 ?C(Oral) TMAX: 36.8 ?C(Oral) HR: 77(Monitored) RR: 20 BP: 150/82 SpO2: 94% WT: 79.7 kg Constitutional: Awake and alert; oriented x3, appears in distress with mild respiratory distress aswell Head/neck: Neck supple with no palpable lymphadenopathy, bruits or masses; trachea midline Chest/lungs: Diminished but clear with no wheezes or rhonchi; mild respiratory distress with tachypnea; no point tenderness noted Cardiovascular: Regular rate and rhythm; normal S1-S2 with no murmur; no pitting edema 2+ pulses bilaterally Gastrointestinal: Soft, nontender, nondistended, positive bowel sounds Neurological: Nonfocal; cranial nerves II through XII appear intact Psychological: Pleasant affect Laboratory Results .Manual Abs (11/26/2022) Segs Abs Man - 12.3 E9/L Lymph Abs Man - 1.2 E9/L Pima Abs Man - 0.0 E9/L Eos Abs Man - 0.0 E9/L Basophil Abs Man - 0.0 E9/L Automated Diff (11/25/2022) Neutro Auto - 81.4 (more content not included)...[facility] Comment on above:Result Comment: Electronically Signed By: Kodi Hong DO.br\Date and Time Signed: 12/01/22 16:36 [id number] Hospital Discharge instructions Patient Education 11/29/2022 16:47:16 Managing Anxiety, Adult Managing Anxiety, Adult After being diagnosed with anxiety, you may be relieved to know why you have felt or behaved a certain way. You may also feel overwhelmed about the treatment ahead and what it will mean for your life. With care and support, you can manage this condition. How to manage lifestyle changes Managing stress and anxiety Stress is your body's reaction to life changes and events, both good and bad. Most stress will lastjust a few hours, but stress can be ongoing and can lead to more than just stress. Although stress can play a major role in anxiety, it is not the same as anxiety. Stress is usually caused by something external, such as a deadline, test, or competition. Stress normally passes after the triggering ev ent has ended. Anxiety is caused by something internal, such as imagining a terrible outcome or worrying that something will go wrong that will devastate you. Anxiety often does not go away even after the triggering event is over, and it can become long-term (chronic) worry. It is important to understand the differences between stress and anxiety and to manage your stress effectively so that it does not lead donavon anxious response. Talk with your health care provider or a counselor to learn more about reducing anxiety and stress.He or she may suggest tension reduction techniques, such as: Music therapy. Spend time creating or listening to music that you enjoy and that inspires you. Mindfulness-based meditation. Practice being aware of your normal breaths while not trying to control your breathing. It can be done while sitting or walking. Centering prayer. This involves focusing on a word, phrase, or sacred image that means something toyou and brings you peace. Deep breathing. To do this, expand your stomach and inhale slowly through your nose. Hold your breath for 3 5 seconds. Then exhale slowly, letting your stomach muscles relax. Self-talk. Learn to notice and identify thought patterns that lead to anxiety reactions and change those patterns to thoughts that feel peaceful. Muscle relaxation. Taking time to tense muscles and then relax them. Choose a tension reduction technique that fits your lifestyle and personality. These techniques take time and practice. Set aside 5 15 minutes a day to do them. Therapists can offer counseling and training in these techniques. The training to help with anxiety may be covered by some insurance plans. Other things you can do to manage stress and anxiety include: Keeping a stress diary. This can help you learn what triggers your reaction and then learn ways to manage your response. Thinking about how you react to certain situations. You may not be able to control everything, but you can control your response. Making time for activities that help you relax and not feeling guilty about spending your time in this way. Doing visual imagery. This involves imagining or creating mental pictures to help you relax. Practicing yoga. Through yoga poses, you can lower tension and promote relaxation. Medicines Medicines can help ease symptoms. Medicines for anxiety include: Antidepressant medicines. These are usually prescribed for long-term daily control. Anti-anxiety medicines. These may be added in severe cases, especially when panic attacks occur. Medicines will be prescribed by a health care provider. When used together, medicines, psychotherapy, and tension reduction techniques may be the most effective treatment. Relationships Relationships can play a big part in helping you recover. Try to spend more time connecting with trusted friends and family members. Consider going to couples counseling if you have a partner, taking family education classes, or going to family therapy. Therapy can help you and others better understand your condition. How to recognize changes in your anxiety Everyone responds differently to treatment for anxiety. Recovery from anxiety happens when symptomsdecrease and stop interfering with your daily activities at home or work. This may mean that you will start to: Have better concentration and focus. Worry will interfere less in your daily thinking. Sleep better. Be less irritable. Have more energy. Have improved memory. It is also important to recognize when your condition is getting worse. Contact your health care provider if your symptoms interfere with home or work and you feel like your condition is not improving. Follow these instructions at home: Activity Exercise. Adults should do the following: ?Exercise for at least 150 minutes each week. The exercise should increase your heart rate and makeyou sweat (moderate-intensity exercise). ?Strengthening exercises at least twice a week. Get the right amount and quality of sleep. Most adults need 7 9 hours of sleep each night. Lifestyle Eat a healthy diet that includes plenty of vegetables, fruits, whole grains, low-fat dairy products, and lean protein. ?Do not eat a lot of foods that are high in fats, added sugars, or salt (sodium). Make choices that simplify your life. Do not use any products that contain nicotine or tobacco. These products include cigarettes, chewing tobacco, and vaping devices, such as e-cigarettes. If you need help quitting, ask your health careprovider. Avoid caffeine, alcohol, and certain xpdc-die-stucmjd cold medicines. These may make you feel worse. Ask your pharmacist which medicines to avoid. General instructions Take knll-uka-gsdrjfn and prescription medicines only as told by your health care provider. Keep all follow-up visits. This is important. Where to find support You can get help and support from these sources: Self-help groups. Online and community organizations. A trusted spiritual leader. Couples counseling. Family education classes. Family therapy. Where to find more information You may find that joining a support group helps you deal with your anxiety. The following sources can help you locate counselors or support groups near you: Mental Health [place]: www.mentalhealthamerica.net Anxiety and Depression Association of [place] (ADAA): www.adaa.org National Batt[employer] on Mental Illness (CLAUDINE): www.claudine.org Contact a health care provider if: You have a hard time staying focused or finishing daily tasks. You spend many hours a day feeling worried about everyday life. You become exhausted by worry. You start to have headaches or frequently feel tense. You develop chronic nausea or diarrhea. Get help right away if: You have a racing heart and shortness of breath. You have thoughts of hurting yourself or others. If you ever feel like you may hurt yourself or others, or have thoughts about taking your own life,get help right away. Go to your nearest emergency department or: Call your local emergency services (677 in the [place] Call a suicide crisis helpline, such as the National Suicide Prevention Lifeline at or 409 in the [place] This is open 24 hours a day in the [place] Text the Crisis Text Line at 657869 (in the [place] Summary Taking steps to learn and use tension reduction techniques can help calm you and help prevent triggering an anxiety reaction. When used together, medicines, psychotherapy, and tension reduction techniques may be the most effective treatment. Family, friends, and partners can play a big part in supporting you. This information is not intended to replace advice given to you by your health care provider. Make sure you discuss any questions you have with your health care provider. Document Revised: 10/18/2021 Document Reviewed: 07/16/2021 [employer] Patient Education 2022 [employer]. 11/29/2022 16:47:13 Chronic Obstructive Pulmonary Disease, Daln-ts-Poqw Chronic Obstructive Pulmonary Disease Chronic obstructive pulmonary disease (COPD) is a long-term (chronic) lung problem. When you have COPD, it is hard for air to get in and out of your lungs. Usually the condition gets worse over time, and your lungs will never return to normal. There are things you can do to keep yourself as healthy as possible. What are the causes? Smoking. This is the most common cause. Certain genes passed from parent to child (inherited). What increases the risk? Being exposed to secondhand smoke from cigarettes, pipes, or cigars. Being exposed to chemicals and other irritants, such as fumes and dust in the work environment. Having chronic lung conditions or infections. What are the signs or symptoms? Shortness of breath, especially during physical activity. A long-term cough with a large amount of thick mucus. Sometimes, the cough may not have any mucus (dry cough). Wheezing. Breathing quickly. Skin that looks harvey or blue, especially in the fingers, toes, or lips. Feeling tired (fatigue). Weight loss. Chest tightness. Having infections often. Episodes when breathing symptoms become much worse (exacerbations). At the later stages of this disease, you may have swelling in the ankles, feet, or legs. How is this treated? Taking medicines. Quitting smoking, if you smoke. Rehabilitation. This includes steps to make your body work better. It may involve a team of specialists. Doing exercises. Making changes to your diet. Using oxygen. Lung surgery. Lung transplant. Comfort measures (palliative care). Follow these instructions at home: Medicines Take moin-lti-mesrbxa and prescription medicines only as told by your doctor. Talk to your doctor before taking any cough or allergy medicines. You may need to avoid medicines that cause your lungs to be dry. Lifestyle If you smoke, stop smoking. Smoking makes the problem worse. Do not smoke or use any products that contain nicotine or tobacco. If you need help quitting, ask your doctor. Avoid being around things that make your breathing worse. This may include smoke, chemicals, and fumes. Stay active, but remember to rest as well. Learn and use tips on how to manage stress and control your breathing. Make sure you get enough sleep. Most adults need at least 7 hours of sleep every night. Eat healthy foods. Eat smaller meals more often. Rest before meals. Controlled breathing Learn and use tips on how to control your breathing as told by your doctor. Try: Breathing in (inhaling) through your nose for 1 second. Then, pucker your lips and breath out (exhale) through your lips for 2 seconds. Putting one hand on your belly (abdomen). Breathe in slowly through your nose for 1 second. Your hand on your belly should move out. Pucker your lips and breathe out slowly through your lips. Your hand on your belly should move in as you breathe out. Controlled coughing Learn and use controlled coughing to clear mucus from your lungs. Follow these steps: 1.Lean your head a little forward. 2.Breathe in deeply. 3.Try to hold your breath for 3 seconds. 4.Keep your mouth slightly open while coughing 2 times. 5.Spit any mucus out into a tissue. 6.Rest and do the steps again 1 or 2 times as needed. General instructions Make sure you get all the shots (vaccines) that your doctor recommends. Ask your doctor about a flushot and a pneumonia shot. Use oxygen therapy and pulmonary rehabilitation if told by your doctor. If you need home oxygen therapy, ask your doctor if you should buy a tool to measure your oxygen level (oximeter). Make a COPD action plan with your doctor. This helps you to know what to do if you feel worse than usual. Manage any other conditions you have as told by your doctor. Avoid going outside when it is very hot, cold, or humid. Avoid people who have a sickness you can catch (contagious). Keep all follow-up visits. Contact a doctor if: You cough up more mucus than usual. There is a change in the color or thickness of the mucus. It is harder to breathe than usual. Your breathing is faster than usual. You have trouble sleeping. You need to use your medicines more often than usual. You have trouble doing your normal activities such as getting dressed or walking around the house. Get help right away if: You have shortness of breath while resting. You have shortness of breath that stops you from: ?Being able to talk. ?Doing normal activities. Your chest hurts for longer than 5 minutes. Your skin color is more blue than usual. Your pulse oximeter shows that you have low oxygen for longer than 5 minutes. You have a fever. You feel too tired to breathe normally. These symptoms may represent a serious problem that is an emergency. Do not wait to see if the symptoms will go away. Get medical help right away. Call your local emergency services (911 in the [place] Do not drive yourself to the hospital. Summary Chronic obstructive pulmonary disease (COPD) is a long-term lung problem. The way your lungs work will never return to normal. Usually the condition gets worse over time. There are things you can do to keep yourself as healthy as possible. Take pkgk-hdt-ezjnssp and prescription medicines only as told by your doctor. If you smoke, stop. Smoking makes the problem worse. This information is not intended to replace advice given to you by your health care provider. Make sure you discuss any questions you have with your health care provider. Document Revised: 01/31/2021 Document Reviewed: 01/31/2021 [employer] Patient Education 2022 [employer]. Follow Up Care 11/25/2022 14:52:28 With:[facility] Address:Unknown When: Unknown With:PARRIS GUZMAN Address: [address] [place], [place] [id number] [facility] (1) When: Unknown [facility]08-24-2023 Evaluation + Plan noteExtracted from: Title:Progress/SOAP Note Author:Trish Hong DO Date:11/29/22 72-year-old female admitted for acute on chronic respiratory failure with hypoxia in the setting of COPD exacerbation. Comorbidities include COPD, history of CVA in the past, depression with anxiety/panic, hyperlipidemia, acid reflux and previous smoker. 1. Acute on chronic respiratory failure with hypoxia (J96.21: Acute and chronic respiratory failure with hypoxia) We will discontinue antibiotics after today Continue supplemental O2 currently she is at 3 L nasal cannula with sats into the low 90s IV methylprednisolone 40 mg every 8 hours along with respiratory treatments with DuoNebs 4 times daily and albuterol as needed 2. Acute exacerbation of chronic obstructive pulmonary disease (COPD) (J44.1: Chronic obstructive pulmonary disease with (acute) exacerbation) See above 3. Other chest pain (R07.89: Other chest pain) Stable 4. Hyperlipidemia (E78.5: Hyperlipidemia, unspecified) On simvastatin 5. History of CVA in adulthood (Z86.73: Personal history of transient ischemic attack (TIA), and cerebral infarction without residual deficits) On Plavix, fenofibrate and simvastatin 6. Depression with anxiety (F41.8: Other specified anxiety disorders) Patient has Xanax and Prozac 7. Chronic GERD (K21.9: Gastro-esophageal reflux disease without esophagitis) 8. Obesity due to excess calories (E66.09: Other obesity due to excess calories) 9. No contraindication to deep vein thrombosis (DVT) prophylaxis (Z78.9: Other specified health status) Orders: morphine, 2 mg = 1 mL, Injection, IV Push, q4hr PRN Pain 8-10 for 5 day(s), Stop date 12/03/22 18:21:00 EDT, Routine, Start date 11/28/22 18:22:00 EDT, 11/28/22 18:22:00 EDT tramadol, 50 mg = 1 tab(s), Tab, Oral, q6hr PRN Pain 4-7 for 7 day(s), Stop date 12/05/22 18:21:00 EDT, Routine, Start date 11/28/22 18:22:00 EDT, 11/28/22 18:22:00 EDT Echo Transthoracic Complete PLAN: 1. Doing well on 3 L 2. We will discontinue the ceftriaxone and azithromycin after today given a 5- day course 3. Continue IV methylprednisolone 4. DuoNebs 4 times daily and albuterol as needed every 2 hours 5. She is on Xanax, Prozac as well as fenofibrate and simvastatin as well last Plavix 6. 2D echo noted 7. DVT prophylaxis with SCDs and subcu heparin 8. Ulcer prophylaxis with PPI 9. Meeting with [facility] this afternoon and daughter flying in Discharge plan Extracted from: Title:Progress/SOAP Note Author:Arnel TYLER, Tiff any Date:11/29/22 Acute on chronic respiratory failure with hypoxia (J96.21: Acute and chronic respiratory failure with hypoxia) Suspect 2/2 CAP c/b AECOPD H/o severe COPD (last PFTs 09/28, FEV1 43%) Chronic hypoxemic respiratory failure on 3L NC Former smoker (quit 2014) Plan: - Currently on 3L NC - Titrate O2 for sats 89-94% - Continue bronchodilators - Continue solumedrol 40mg q8h - Procal neg, RVP neg, Sputum cx neg - Leukocytosis on presentation, b/l infiltrates on CTA chest, and infectious symptoms --> Continue ceftriaxone and azithromycin for CAP coverage - Continue home regimen for anxiety --> could consider morphine if continued respiratory distress - Echo: LVEF 60-65%, Grade I LVDD - Encourage IS and OOB -Patient and family meeting with hospice this afternoon No contraindication to deep vein thrombosis (DVT) prophylaxis (Z78.9: Other specified health status) Heparin sq Orders: Incentive Spirometry Extracted from: Title:PCC progress note Author:Bailey Dill Jr., PA-C Date:11/28/22 1. Acute on chronic respirat ory failure with hypoxia (J96.21: Acute and chronic respiratory failure with hypoxia) Suspect 2/2 CAP c/b AECOPD H/o severe COPD (last PFTs 09/28, FEV1 43%) Chronic hypoxemic respiratory failure on 3L NC Former smoker (quit 2014) Plan: - Currently on 3L NC - Titrate O2 for sats 89-94% - Continue bronchodilators - Continue solumedrol 40mg q8h - Procal neg, RVP neg, Sputum cx neg - Leukocytosis on presentation, b/l infiltrates on CTA chest, and infectious symptoms --> Continue ceftriaxone and azithromycin for CAP coverage - Continue home regimen for anxiety --> could consider morphine if continued respiratory distress - Echo: LVEF 60-65%, Grade I LVDD - Encourage IS and OOB 9. No contraindication to deep vein thrombosis (DVT) prophylaxis (Z78.9: Other specified health status) Heparin sq Addendum by Jimbo MORFIN, Jessica Reese on November 28, 2022 22:23:59 EDT I have seen and evaluated the patient with the physician employee relations assistant. His history, physical exam, assessment and plan were done in collaboration. I performed an independent physical examination. I agree with all the above. Extracted from: Title:Progress/SOAP Note Author:Hal HENDRIXTrish Date:11/28/22 72-year-old female admitted for acute on chronic respiratory failure with hypoxia in the setting of COPD exacerbation. Comorbidities include COPD, history of CVA in the past, depression with anxiety/panic, hyperlipidemia, acid reflux and previous smoker. 1. Acute on chronic respiratory failure with hypoxia (J96.21: Acute and chronic respiratory failure with hypoxia) Due to COPD exacerbation; there is concern for community-acquired pneumonia but sputum culture no growth to date We will continue ceftriaxone day 4 and oral azithromycin day 4 Continue supplemental O2 when she is at 4 L nasal cannula Maintain respiratory treatment with DuoNebs 4 times daily and albuterol every 2 hours as needed Still on methylprednisolone 40 mg every 8 hours 2. Acute exacerbation of chronic obstructive pulmonary disease (COPD) (J44.1: Chronic obstructive pulmonary disease with (acute) exacerbation) See #1 3. Other chest pain (R07.89: Other chest pain) Currently pain-free 4. Hyperlipidemia (E78.5: Hyperlipidemia, unspecified) On simvastatin 5. History of CVA in adulthood (Z86.73: Personal history of transient ischemic attack (TIA), and cerebral infarction without residual deficits) On Plavix, fenofibrate and simvastatin 6. Depression with anxiety (F41.8: Other specified anxiety disorders) She has Xanax and Prozac on board 7. Chronic GERD (K21.9: Gastro-esophageal reflux disease without esophagitis) Oral PPI with Protonix 8. Obesity due to excess calories (E66.09: Other obesity due to excess calories) 9. No contraindication to deep vein thrombosis (DVT) prophylaxis (Z78.9: Other specified health status) SCDs and subcu heparin Orders: Consult to Hospice Continuous Pulse Oximetry ECG 12 Lead Adult Echo Transthoracic Complete Troponin 3 Hr. Troponin 6 Hr. Troponin 9 Hr. PLAN: 1. Continue respiratory treatments with DuoNebs and albuterol as needed 2. She is down to 4 L nasal cannula 3. Maintain IV methylprednisolone 4. Day 4 IV ceftriaxone and day 4 oral azithromycin 5. Continue other meds from home including her Xanax and Prozac as well as fenofibrate and simvastatin; she is also on Plavix 6. 2D echo pending 7. DVT prophylaxis with SCDs and subcu heparin 8. Ulcer prophylaxis with PPI 9. She is a full code; daughter reached out wanting [facility] hospice consulted Discharge planning in the next 24 to 48 hours Extracted from: Title:PCCM progress note Author:Bailey Dill Jr., PA-C Date:11/27/22 1. Acute on chronic respirat ory failure with hypoxia (J96.21: Acute and chronic respiratory failure with hypoxia) Suspect 2/2 CAP c/b AECOPD H/o severe COPD (last PFTs 09/28, FEV1 43%) Chronic hypoxemic respiratory failure on 3L NC Former smoker (quit 2014) Plan: - Currently on 4L NC - Titrate O2 for sats 89-94% - Continue bronchodilators - Continue solumedrol 40mg q8h - Procal neg, RVP neg - Leukocytosis on presentation, b/l infiltrates on CTA chest, and infectious symptoms --> Continue ceftriaxone and azithromcyin for CAP coverage - Continue home regimen for anxiety --> could consider morphine if continued respiratory distress - F/u echo - Encourage IS and OOB 9. No contraindication to deep vein thrombosis (DVT) prophylaxis (Z78.9: Other specified health status) Heparin sq Extracted from: Title:Progress/SOAP Note Author:Trish Hong DO Date:11/27/22 72-year-old female admitted for acute on chronic respiratory failure with hypoxia in the setting of COPD exacerbation. She is currently having chest pain which sounds pleuritic versus costochondritis. COVID's include COPD, history of CVA in the past, depression with anxiety/panic, hyperlipidemia, acid reflux and previous smoker. 1. Acute on chronic respiratory failure with hypoxia (J96.21: Acute and chronic respiratory failure with hypoxia) Secondary to COPD exacerbation versus community-acquired pneumonia We will continue IV ceftriaxone day 3 and oral azithromycin day 3 Currently on 5 L of nasal cannula and again at home she uses anywhere from 3 to 4 L DuoNebs 4 times daily and with albuterol every 2 hours as needed IV methylprednisolone 40 mg every 8 hours Ordered: Home Health Orders [facility] Care/Day Moderate 35 Minutes [id number] 2. Acute exacerbation of chronic obstructive pulmonary disease (COPD) (J44.1: Chronic obstructive pulmonary disease with (acute) exacerbation) See above Ordered: Home Health Orders [facility] Care/Day Moderate 35 Minutes [id number] 3. Other chest pain (R07.89: Other chest pain) Pain is worse with breathing and coughing so it sounds more pleuritic in nature or costochondritis We will give a one-time dose of Toradol 15 mg IV push Stat troponin Twelve-lead ECG shows sinus rhythm with nonspecific T wave flattening but no acute ST-T wave changes Ordered: [facility] Care/Day Moderate 35 Minutes [id number] 4. Hyperlipidemia (E78.5: Hyperlipidemia, unspecified) Maintain simvastatin Ordered: [facility] Care/Day Moderate 35 Minutes [id number] 5. History of CVA in adulthood (Z86.73: Personal history of transient ischemic attack (TIA), and cerebral infarction without residual deficits) Continue Plavix as well as her fenofibrate and simvastatin Ordered: [facility] Care/Day Moderate 35 Minutes [id number] 6. Depression with anxiety (F41.8: Other specified anxiety disorders) She does have Xanax which I increased the dose to 1 mg twice daily as needed as well as Prozac Ordered: [facility] Care/Day Moderate 35 Minutes [id number] 7. Chronic GERD (K21.9: Gastro-esophageal reflux disease without esophagitis) On oral PPI Ordered: [facility] Care/Day Moderate 35 Minutes [id number] 8. Obesity due to excess calories (E66.09: Other obesity due to excess calories) Ordered: [facility] Care/Day Moderate 35 Minutes [id number] 9. No contraindication to deep vein thrombosis (DVT) prophylaxis (Z78.9: Other specified health status) Ordered: [facility] Care/Day Moderate 35 Minutes [id number] Orders: alprazolam, 1 mg = 1 tab(s), Tab, Oral, Once, Stop date 11/26/22 13:00:00 EDT, Routine, Start date 11/26/22 13:00:00 EDT, 11/26/22 12:49:00 EDT alprazolam, 1 mg = 4 tab(s), Tab, Oral, BID PRN Anxiety, Routine, Start date 11/26/22 12:48:00 EDT, 11/26/22 12:48:00 EDT aripiprazole, 5 mg = 1 tab(s), Tab, Oral, Once, Stop date 11/26/22 12:00:00 EDT, Routine, Start date 11/26/22 12:00:00 EDT aripiprazole, 5 mg = 1 tab(s), Tab, Oral, Daily, Routine, Start date 11/27/22 9:00:00 EDT, 11/26/22 11:31:00 EDT clopidogrel, 75 mg = 1 tab(s), Tab, Oral, Every other day, Routine, Start date 11/27/22 9:00:00 EDT fenofibrate, 145 mg = 1 tab(s), Tab, Oral, Once, Stop date 11/26/22 12:00:00 EDT, Routine, Start date 11/26/22 12:00:00 EDT fenofibrate, 145 mg = 1 tab(s), Tab, Oral, Daily, Routine, Start date 11/27/22 9:00:00 EDT, 11/26/22 11:32:00 EDT fluoxetine, 40 mg = 2 cap(s), Cap, Oral, Once, Stop date 11/26/22 12:00:00 EDT, Routine, Start date 11/26/22 12:00:00 EDT fluoxetine, 40 mg = 2 cap(s), Cap, Oral, Daily, Routine, Start date 11/27/22 9:00:00 EDT, 11/26/22 11:32:00 EDT ketorolac, 15 mg = 1 mL, Injection, IV Push, Once, Stop date 11/27/22 10:00:00 EDT, Routine, Start date 11/27/22 10:00:00 EDT, 11/27/22 9:14:00 EDT pantoprazole, 40 mg = 1 tab(s), Tab-DR, Oral, Once, Stop date 11/26/22 12:00:00 EDT, Routine, Start date 11/26/22 12:00:00 EDT pantoprazole, 40 mg = 1 tab(s), Tab-DR, Oral, Daily, Routine, Start date 11/27/22 9:00:00 EDT, 11/26/22 11:32:00 EDT raloxifene, 60 mg = 1 tab(s), Tab, Oral, Once, Stop date 11/26/22 12:00:00 EDT, Routine, Start date 11/26/22 12:00:00 EDT raloxifene, 60 mg = 1 tab(s), Tab, Oral, Daily, Routine, Start date 11/27/22 9:00:00 EDT, 11/26/22 11:32:00 EDT simvastatin, 40 mg = 1 tab(s), Tab, Oral, Once a day (at bedtime), Routine, Start date 11/26/22 21:00:00 EDT, 11/26/22 11:32:00 EDT zolpidem, 10 mg = 2 tab(s), Tab, Oral, Once a day (at bedtime) PRN Sleep, Routine, Start date 11/26/22 11:33:00 EDT, 11/26/22 11:33:00 EDT ECG [address] in Status Referral to Resource Center Troponin 0 Hr. PLAN: 1. As mentioned above, we will get a stat troponin; previous troponins have all been normal 2. Twelve-lead ECG shows no acute ST-T wave changes with nonspecific T wave flattening predominantly in the lateral leads 3. Toradol 50 mg IV push x1 4. Maintain her Xanax along with her Prozac 5. Continue DuoNebs 4 times daily with albuterol every 2 hours as needed 6. This is day 3 IV ceftriaxone and day 3 oral azithromycin 7. Supplemental O2 currently at 5 L and wean as tolerated 8. Sputum cultures no growth to date and respiratory panel negative 9. Continue other home meds including her Plavix, fenofibrate, Evista, Ambien as needed as well as her simvastatin 10. DVT prophylaxis with SCDs and subcu heparin 11. Ulcer prophylaxis with oral PPI; she does have a history of GERD as well 12. Full CODE STATUS Extracted from: Title:PCCM Consult Note Author:Aniyah Whitt PA-C, Leticia Reese Date:11/26/22 1. Acute on chronic respirat ory failure with hypoxia (J96.21: Acute and chronic respiratory failure with hypoxia) Suspect 2/2 CAP c/b AECOPD H/o severe COPD (last PFTs 09/28, FEV1 43%) Chronic hypoxemic respiratory failure on 3L NC Former smoker (quit 2014) Plan: - Currently on 5L NC - Titrate O2 for sats 89-94% - Continue bronchodilators - Continue solumedrol 40mg q8h - Procal neg, send RVP - Leukocytosis on presentation, b/l infiltrates on CTA chest, and infectious symptoms --> Continue ceftriaxone and azithromcyin for CAP coverage - Continue home regimen for anxiety --> could consider morphine if continued respiratory distress - Encourage IS and OOB 9. No contraindication to deep vein thrombosis (DVT) prophylaxis (Z78.9: Other specified health status) Heparin sq Orders: methylPREDNISolone, 40 mg = 1 mL, Injection, IV Push, q8hrFT, NOW, Start date 11/26/22 9:02:00 EDT Oxygen Therapy Respiratory Panel by PCR Addendum by Jimbo MORFIN, Jessica Reese on November 26, 2022 19:20:56 EDT I have seen and evaluated the patient with the physician employee relations assistant. His history, physical exam, assessment and plan were done in collaboration. I performed an independent physical examination. I agree with all the above. Extracted from: Title:Progress/SOAP Note Author:Trish Hong DO Date:11/26/22 72-year-old female admitted for acute on chronic respiratory failure with hypoxia in the setting of COPD exacerbation. She had chest pain earlier this morning but most likely a panic attack. 1. Acute on chronic respiratory failure with hypoxia (J96.21: Acute and chronic respiratory failure with hypoxia) Secondary to COPD exacerbation versus CAP Sputum culture pending and respiratory panel ordered Pulmonology consulted Continue IV ceftriaxone and p.o. azithromycin -day 2 IV methylprednisolone 40 mg every 8 hours DuoNebs 4 times daily with albuterol as needed every 2 hours Supplemental O2 currently at 5 L and she uses anywhere from 3 to 4 L at home 2. Acute exacerbation of chronic obstructive pulmonary disease (COPD) (J44.1: Chronic obstructive pulmonary disease with (acute) exacerbation) See above 3. Other chest pain (R07.89: Other chest pain) Most likely a panic attack; I did resume her Xanax and Prozac from home 4. Hyperlipidemia (E78.5: Hyperlipidemia, unspecified) Maintain simvastatin 5. History of CVA in adulthood (Z86.73: Personal history of transient ischemic attack (TIA), and cerebral infarction without residual deficits) On Plavix along with statin therapy 6. Depression with anxiety (F41.8: Other specified anxiety disorders) I did resume her Xanax and Prozac from home; she is also on Abilify 7. Chronic GERD (K21.9: Gastro-esophageal reflux disease without esophagitis) Oral PPI 8. Obesity due to excess calories (E66.09: Other obesity due to excess calories) 9. No contraindication to deep vein thrombosis (DVT) prophylaxis (Z78.9: Other specified health status) On SCDs and subcu heparin Orders: alprazolam, 0.25 mg = 1 tab(s), Tab, Oral, BID PRN Anxiety, Routine, Start date 11/26/22 11:30:00 EDT, 11/26/22 11:30:00 EDT aripiprazole, 5 mg = 1 tab(s), Tab, Oral, Once, Stop date 11/26/22 12:00:00 EDT, Routine, Start date 11/26/22 12:00:00 EDT aripiprazole, 5 mg = 1 tab(s), Tab, Oral, Daily, Routine, Start date 11/27/22 9:00:00 EDT, 11/26/22 11:31:00 EDT clopidogrel, 75 mg = 1 tab(s), Tab, Oral, Every other day, Routine, Start date 11/27/22 9:00:00 EDT fenofibrate, 145 mg = 1 tab(s), Tab, Oral, Once, Stop date 11/26/22 12:00:00 EDT, Routine, Start date 11/26/22 12:00:00 EDT fenofibrate, 145 mg = 1 tab(s), Tab, Oral, Daily, Routine, Start date 11/27/22 9:00:00 EDT, 11/26/22 11:32:00 EDT fluoxetine, 40 mg = 2 cap(s), Cap, Oral, Once, Stop date 11/26/22 12:00:00 EDT, Routine, Start date 11/26/22 12:00:00 EDT fluoxetine, 40 mg = 2 cap(s), Cap, Oral, Daily, Routine, Start date 11/27/22 9:00:00 EDT, 11/26/22 11:32:00 EDT pantoprazole, 40 mg = 1 tab(s), Tab-DR, Oral, Once, Stop date 11/26/22 12:00:00 EDT, Routine, Start date 11/26/22 12:00:00 EDT pantoprazole, 40 mg = 1 tab(s), Tab-DR, Oral, Daily, Routine, Start date 11/27/22 9:00:00 EDT, 11/26/22 11:32:00 EDT raloxifene, 60 mg = 1 tab(s), Tab, Oral, Once, Stop date 11/26/22 12:00:00 EDT, Routine, Start date 11/26/22 12:00:00 EDT raloxifene, 60 mg = 1 tab(s), Tab, Oral, Daily, Routine, Start date 11/27/22 9:00:00 EDT, 11/26/22 11:32:00 EDT simvastatin, 40 mg = 1 tab(s), Tab, Oral, Once a day (at bedtime), Routine, Start date 11/26/22 21:00:00 EDT, 11/26/22 11:32:00 EDT zolpidem, 10 mg = 2 tab(s), Tab, Oral, Once a day (at bedtime) PRN Sleep, Routine, Start date 11/26/22 11:33:00 EDT, 11/26/22 11:33:[address] in Status PLAN: 1. Continue respiratory therapy with DuoNebs 4 times daily and albuterol every 2 hours as needed 2. IV methylprednisolone 40 mg every 8 hours 3. Supplemental O2; as mentioned above, she is on 5 L currently and at home she takes 2 to 4 L 4. Pulmonology consulted 5. This is day 2 IV ceftriaxone and day 2 oral azithromycin 6. Sputum culture pending and respiratory panel ordered 7. Continue home meds with Xanax, Abilify, Plavix, fenofibrate, fluoxetine, Avista, simvastatin and Ambien as needed 8. DVT prophylaxis with SCDs and subcu heparin 9. Ulcer prophylaxis with oral PPI 10. Full CODE STATUS Patient is showing signs of mild respiratory distress using accessory muscles to breathe. We will continue to hold patient in the hospital and maintain treatment as noted above. Extracted from: Title:Admission H & P Author:Tariq ALCALA MD Date :11/25/22 1. Acute on chronic respirat ory failure with hypoxia (J96.21: Acute and chronic respiratory failure with hypoxia) - secondary to AECOPD rule out community acquired pneumonia - check sputum culture, procalcitonin, and RVP - ordered CTA chest rule out PE and look at lung parenchyma - start ceftriaxone IV and azithromycin PO - start solumedrol, IV, duonebs INH - supplemental O2 90% on 4L NC - consult pulmonary 2. Acute exacerbation of chronic obstructive pulmonary disease (COPD) (J44.1: Chronic obstructive pulmonary disease with (acute) exacerbation) - as above 3. Other chest pain (R07.89: Other chest pain) - rule out ACS, feel likely related to above - monitor on telemetry, trend troponin - ASA PO daily, check fasting lipid profile - treat above, if no ACS, consider outpatient stress test once above resolved 4. Hyperlipidemia (E78.5: Hyperlipidemia, unspecified) - stable - continue PO simvastatin 5. History of CVA in adulthood (Z86.73: Personal history of transient ischemic attack (TIA), and cerebral infarction without residual deficits) - stable - continue PO plavix, statin 6. Depression with anxiety (F41.8: Other specified anxiety disorders) - stable - continue PO prozac and xanax and abilify 7. Chronic GERD (K21.9: Gastro-esophageal reflux disease without esophagitis) - stable - continue PO prilosec 8. Obesity due to excess calories (E66.09: Other obesity due to excess calories) - BMI over 30 - lifestyle modification, outpatient PCP follow up 9. No contraindication to deep vein thrombosis (DVT) prophylaxis (Z78.9: Other specified health status) - ordered SCDs, start heparin subcutaneous bid pt will be admitted for observation possible discharge in next 24 hours Orders: Add on Test CTA Chest Place in Status Respiratory Panel by PCR Extracted from: Title:ED Note Author:Td Wang PA-C Fili e:11/25/22 1. Acute on chronic respirat ory failure with hypoxia (J96.21: Acute and chronic respiratory failure with hypoxia) 2. Acute exacerbation of chronic obstructive pulmonary disease (COPD) (J44.1: Chronic obstructive pulmonary disease with (acute) exacerbation) 3. Other chest pain (R07.89: Other chest pain) 4. Hyperlipidemia (E78.5: Hyperlipidemia, unspecified) 5. History of CVA in adulthood (Z86.73: Personal history of transient ischemic attack (TIA), and cerebral infarction without residual deficits) 6. Depression with anxiety (F41.8: Other specified anxiety disorders) 7. Chronic GERD (K21.9: Gastro-esophageal reflux disease without esophagitis) 8. Obesity due to excess calories (E66.09: Other obesity due to excess calories) 9. No contraindication to deep vein thrombosis (DVT) prophylaxis (Z78.9: Other specified health status) Orders: albuterol-ipratropium, 3 mL, Soln-Inh, Inhalation, Once, Stop date 11/25/22 15:31:00 EDT, STAT, Start date 11/25/22 15:31:00 EDT azithromycin + Sodium Chloride 0.9% intravenous solution 250 mL, 500 mg = 1 EA, Injection, IV Piggyback, Daily, STAT, Start date 11/25/22 16:49:00 EDT, 250 mL/hr, Infuse over 60 minute(s) ceftriaxone + Sodium Chloride 0.9% intravenous solution 50 mL, 1,000 mg = 1 EA, Injection, IV Piggyback, Once, Stop date 11/25/22 16:49:00 EDT, STAT, Start date 11/25/22 16:49:00 EDT, 100 mL/hr, Infuse over 30 minute(s) dexamethasone, 20 mg = 2 mL, Injection, IV Push, Once, Stop date 11/25/22 15:31:00 EDT, STAT, Start date 11/25/22 15:31:00 EDT, 11/25/22 15:31:00 EDT morphine, 4 mg = 2 mL, Injection, IV Push, Once, Stop date 11/25/22 16:49:00 EDT, STAT, Start date 11/25/22 16:49:00 EDT, 11/25/22 16:49:00 EDT ondansetron, 4 mg = 2 mL, Injection, IV Push, Once, Stop date 11/25/22 16:49:00 EDT, STAT, Start date 11/25/22 16:49:00 EDT, 11/25/22 16:49:00 EDT Blood Gas Art, with Lytes, Gluc, Lact ED Physician consult Hospitalist for continued care [facility]08-23-2023 NoteEchocardiology Procedure Exam Date/Time Accession # Ordering Dr. Dang Transthoracic 11/27/2022 13:30 EDT [id number] Kodi Hong DO Complete CPT code 36472 [id number] Reason for Exam (Echo Transthoracic Complete) Chest pain Report [facility] [address] [place] [address] Adult Echocardiogram Report Name: NICOLE LOMELI Study Date: 11/27/2022 12:53 PM BP: 192/66 mmHg Patient Location: [address] [place] [address] HR: 89 : 1950 Gender: Female Height: 62 in Age: 72 yrs Ethnicity: [facility] Weight: 179 lb Reason For Study: Chest pain BSA: 1.8 m2 History: CVA, COPD Ordering Physician: Kodi Hong Performed By: Lavern Scruggs [facility] Interpretation Summary Ejection Fraction = 60-65%. Normal LV and RV. No significant valve disease. Normal estimated PA pressure. Impaired diastolic relaxation. No change from prior. Procedure A complete two-dimensional transthoracic echocardiogram was performed (2D, M- mode, spectral and color flow Doppler). Study quality is good. Left Ventricle The left ventricle is normal in size. There is normal left ventricular wall thickness. Ejection Fraction = 60-65%. The left ventricular wall motion is normal. Grade I diastolic dysfunction, (abnormal relaxation pattern). Left Atrium The left atrial size is normal. Echocardiology Report Right Atrium Right atrial size is normal. Right Ventricle The right ventricular systolic function is normal. The right ventricle is normal size. The right ventricular wall motion is normal. Aortic Valve The aortic valve is trileaflet. No aortic regurgitation. There is no aortic stenosis. Mitral Valve The mitral valve is normal in structure and function. There is no mitral regurgitation noted. No mitral valve stenosis. Tricuspid Valve Structurally normal tricuspid valve. No evidence of tricuspid regurgitation. Pulmonic Valve No evidence of stenosis. There is no pulmonic valve regurgitation. Arteries The aortic root is normal in size. Normal ascending aorta. Pulmonary artery diameter is normal. Venous The inferior vena cava is normal in size, and collapses normally with respiration. Effusion Trivial pericardial effusion, not hemodynamically significant. MMode/2D Measurements & Calculations RVDd: 3.6 cm LVIDd: 4.3 cm FS: 45.7 % Ao root diam: 2.4 cm IVSd: 0.88 cm LVIDs: 2.3 cm EDV(Teich): 83.1 ml LVPWd: 0.83 cm ESV(Teich): 18.9 ml Ao root area: 4.6 cm2 EF(Teich): 77.3 % LA dimension: 3.6 cm asc Aorta Diam: 2.8 cm LVOT diam: 1.6 cm LVLd ap4: 7.3 cm EDV(MOD-sp2): 59.7 ml LVOT area: 2.1 cm2 EDV(MOD-sp4): 47.9 ml ESV(MOD-sp2): 11.5 ml LVLs ap4: 5.7 cm EF(MOD-sp2): 80.7 % ESV(MOD-sp4): 14.1 ml EF(MOD-sp4): 70.6 % SV(MOD-sp4): 33.8 ml TAPSE: 3.0 cm Ao Sinus of Valsalva: 2.3 cm Ao Sinotubular Junction: 2.0 cm IVC Diam: 1.8 cm RVIDd/LVIDd: 0.84 EF (MOD-bp): 75.4 % LA Vol Index: 22.0 ml/m2 Doppler Measurements & Calculations MV E max jesus: 103.0 cm/sec MV dec time: 0.16 sec Ao V2 max: 185.7 cm/sec LV V1 max P.3 mmHg MV A max jesus: 113.2 cm/sec Ao max P.8 mmHg LV V1 max: 104.1 cm/sec Echocardiology Report MV E/A: 0.91 Lat Peak E' Jesus: 9.8 cm/sec JAS(V,D): 1.2 cm2 E/E' Lat: 10.5 Med Peak E' Jesus: 10.5 cm/sec E/E' Med: 9.8 TR max jesus: 295.6 cm/sec RAP systole: 3.0 mmHg AV VR: 0.56 TR max P.0 mmHg RVSP(TR): 38.0 mmHg FINAL REPORT Dictated: 11/27/2022 12:53 pm Roney Guerrero MD Signed (Electronic Signature): 11/28/2022 3:32 pm Signed by: Roney Guerrero MD Transcribed by: [facility] Technologist: [facility]08-21-2023 Note Chief Complaint I could not breath and couging so hard Reason for Consultation Acute on chronic hypoxemic respiratory failure History of Present Illness Pt is a 72y F with past medical history significant for severe COPD (last PFTs 09/28, FEV1 43%), chronic hypoxemic respiratory failure on 3L NC, former smoker (quit 2014), CVA, GERD, depression, and HLD who presented to the ED on 11/25 with complaints of worsening SOB and chest pain for the past 4 days. Pt states she uses 3L NC for most the day and all night at baseline. Over the last 4-5 days she has experienced worsening productive cough, chills, fatigue, and SOB. She reports that her sputum has been yellow-green and thick. She also reports some substernal chest pain that radiates to her Lt lateral ribs and her lower back. She denies any fevers, abdominal pain, nausea, vomiting, or diarrhea. In the ED, pt was found to be just below her baseline O2 requirement. She was placed on 4L NC and given a breathing treatment with improvement in her O2 sats. Laboratory workup significant for WBC 17.3, otherwise unremarkable. CXR in the ED did not reveal any acute infiltrates. CTA chest obtained which did not reveal any PE, but did reveal b/l infiltrates concerning for pneumonia. Pt was startedon empiric abx, steroids, and admitted to the hospitalist service for further management. Pulmonarywas consulted to assist in management of the pt's acute on chronic hypoxemic respiratory failure. 11/26: Pt appears anxious and tearful. She states that her SOB does not feel any better today. She is still having a productive cough. She has anxiety at baseline. She still complains of chest pain. Her troponins have been negative. I suspect her pain is related to costochondritis from coughing. Otherwise, she denies any new complaints. Pt is currently on 5L NC. Review of Systems 12 point review of systems performed with patient, pertinent positives and negatives stated in HPI. Physical Exam Vitals & Measurements T: 36.3 ?C(Axillary) TMIN: 35.6 ?C(Oral) TMAX: 36.9 ?C(Oral) HR: 81(Monitored) RR: 24 BP: 109/69 SpO2: 100% HT: 157.48 cm WT: 79.4 kg General: Mild acute distress Skin: Warm, dry Head: Atraumatic, normocephalic Neck: Trachea midline, no adenopathy, no tenderness Eye: PERRL, sclera anicteric ENMT: Moist mucous membranes Cardiovascular: Regular rate and rhythm. No murmurs, rubs, or gallops. No BLE edema. Respiratory: Tachypneic. Scattered crackles b/l. No wheezing. No stridor. + accessory muscle use. Chest wall: No deformity Gastrointestinal: Soft, non-tender, non-distended Back: No tenderness Extremities: No deformity Neurological: Awake and alert. Following commands. No focal deficit appreciated. Psychiatric: Anxious. Tearful. Cooperative. Images CTA Chest 11/26/22 12:21:47 IMPRESSION: NO EVIDENCE OF PULMONARY EMBOLI. FINDINGS MOST CONSISTENT WITH BRONCHITIS/BRONCHOPNEUMONIA. MILD PROBABLY REACTIVE HILAR LYMPHADENOPATHY. FOLLOW-UP IMAGING IN 3-6 MONTHS IS SUGGESTED. EXAM: CTA Chest DATE: 11/25/2022 CLINICAL HISTORY: Shortness of breath (SOB). COMPARISON: Portable chest from earlier 11/25/2022 and chest CTA 08/15/2022. TECHNIQUE: Spiral enhanced images were obtained of the chest after the infusion of approximately 68 mL of Isovue 370 contrast with pulmonary artery CTA protocol. Routine and volume rendered images were performed on a three-dimensional workstation. All CT scans at this facility use dose modulation, iterative reconstruction, and/or weight based dosing when appropriate to reduce radiation dose to as low as reasonably achievable. FINDINGS: No filling defects are identified within the pulmonary arterial vasculature to suggest pulmonary emboli. The thoracic aorta is normal in caliber with minimal atherosclerotic plaquing. There is no dissection. The heart is not enlarged. No significant coronary artery calcifications, within the limits of the cardiac motion artifact. Mild central bronchial wall thickening, with mild patchy airspace reticulonodular opacities are most consistent with bronchitis/bronchopneumonia. Mild bilateral hilar lymphadenopathy is probably reactive. There are no significant pleural or pericardial effusions. Mild degenerative changes of the thoracic spine are again noted. There are no fractures identified. The limited imaging of the included upper abdomen is noncontributory. Ordering Provider: Tariq ALCALA Signed By: Duke Castellon MD 11/25/22 19:18:16 GFR (mL/min/1/73m2) 91 Contrast: Isovue 370 Contrast amount in ml?s: 68 Signed By: Duke Castellon MD XR Chest Single View 11/25/22 16:25:52 IMPRESSION: NO ACUTE CARDIOPULMONARY DISEASE. CLINICAL HISTORY: Chest pain COMPARISON: May 31, 2015 FINDINGS: Osseous structures intact. Cardiopericardial silhouette normal. Pulmonary vasculature normal. Lungs clear. Ordering Provider: Nelson Casillas Signed (more content not included)...[facility]:Result Comment: Electronically Signed By: Jimbo MORFIN, Jessica Reese\.br\Date and Time Signed: 11/26/22 19:21 [id number] NotePT Evaluation done this date. Pt. with on AM-PAC this date. Most limited due to poor endurance. Will continue to follow throughout stay, may benefit from home health pending progress.[facility]08-20-[facility] NoteBasic Information Accompanied by: Family member Source of History: Self Present at Bedside: Family member Referral Source: ED History Limitation: None Chief Complaint Pt reports SOB and chest pain for 4 days that is getting worse. Wears home 02 @ 3L but up to 4L. hxof COPD. Prod cough with green sputum. History of Present Illness Pt is a 72 F PMH HLD, chronic hypoxic respiratory failure (per patient only wears O2 3L NC at night) secondary to a history of COPD, CVA, depression with anxiety, chronic GERD, obesity due to excess calories admitted from ED complaining of sob. pt says this has been going on for the past week. Pt with cough productive of some yellow-green sputum. Pt denies any fevers. Pt with sob at rest and withexertion. Pt has turned up her O2 to 4L NC at home and has been wearing it continuously. Pt also complains of some substernal chest pressure intermittently, non radiating. pt with some nausea, no vomiting. no abdominal pain, diarrhea, constipation, dysuria. No other complaints. Pt denies any history of CAD, had a stress test and cardiac cath 2 years ago, no stents placed. Review of Systems Additional ROS info: Except as noted in the above Review of Systems and in the History of Present Illness all other systems have been reviewed and are negative or noncontributory. Scoring Kern Fall Risk Score: 35 (11/25/22) Physical Exam Vitals & Measurements T: 36.9 ?C(Oral) HR: 92(Monitored) RR: 18 BP: 135/75 SpO2: 90% HT: 158 cm WT: 82.6 kg General: alert, no acute distress Skin: warm, dry Head: no trauma, normocephalic Neck: Trachea midline, no adenopathy, no tenderness Eye: normal conjunctiva, sclera clear ENMT: oral mucosa moist, no pharyngeal erythema or exudate Cardiovascular: regular rate and rhythm, normal peripheral perfusion Respiratory: Lungs rhonchi bilaterally, few wheezes , respirations non labored Chest wall: no deformity. Gastrointestinal: soft, non distended, no tenderness, no guarding. Back: No tenderness, Normal ROM, Normal alignment. Extremities: no deformity, no trauma Neurological: oriented x 4, LOC appropriate for age, CN II-XII intact, motor strength equal & normal bilaterally, sensation equal & normal bilaterally, speech normal Psychiatric: cooperative, affect appropriate for age, normal judgement, normal psychiatric thoughts. Lab Results WBC: 17.3 E9/L High (11/25/22 15:37:00) RBC: 3.6 E12/L Low (11/25/22 15:37:00) HGB: 11.6 gm/dL Low (11/25/22 15:37:00) Hct: 33.9 % Low (11/25/22 15:37:00) MCV: 95 fL (11/25/22 15:37:00) MCH: 32.4 pg (11/25/22 15:37:00) MCHC: 34.1 gm/dL (11/25/22 15:37:00) RDW: 14.1 % (11/25/22 15:37:00) Platelet: 298 E9/L (11/25/22 15:37:00) MPV: 8.7 fL (11/25/22 15:37:00) Neutro Auto: 81.4 % High (11/25/22 15:37:00) Lymph Auto: 9.3 % Low (11/25/22 15:37:00) Pima Auto: 8.5 % (11/25/22 15:37:00) Eos Auto: 0.5 % (11/25/22 15:37:00) Basophil Auto: 0.3 % (11/25/22 15:37:00) Neutro Absolute: 14.1 E9/L High (11/25/22 15:37:00) Lymph Absolute: 1.6 E9/L (11/25/22 15:37:00) Pima Absolute: 1.5 E9/L High (11/25/22 15:37:00) Eos Absolute: 0.1 E9/L (11/25/22 15:37:00) Basophil Absolute: 0.1 E9/L (11/25/22 15:37:00) PT: 13.7 second(s) High (11/25/22 15:37:00) INR: 1.2 (11/25/22 15:37:00) PTT: 33 second(s) (11/25/22 15:37:00) BNP: 53 pg/mL (11/25/22 15:37:00) pH Arterial: 7.37 (11/25/22 16:34:00) P CO2 Arterial: 47.7 mmHg High (11/25/22 16:34:00) P O2 Arterial: 59.9 mmHg Low (11/25/22 16:34:00) Base Excess Arterial: 1.7 mmol/L Low (11/25/22 16:34:00) HCO3 Arterial: 25.8 mmol/L (11/25/22 16:34:00) Total Hgb Art: 11.3 gm/dL Low (11/25/22 16:34:00) FO2Hb Art: 90 % Low (11/25/22 16:34:00) FCOHb Art: 1.8 % (11/25/22 16:34:00) FMetHb Art: 0.2 % (11/25/22 16:34:00) O2 Sat Art: 91.8 % Low (11/25/22 16:34:00) mini baccarat dealer+ Art: 137 mmol/L (11/25/22 16:34:00) cK+ Art: 3.6 mmol/L (11/25/22 16:34:00) cCa2+ Art: 5.23 mg/dL (11/25/22 16:34:00) cCl- Art: 100 mmol/L Low (11/25/22 16:34:00) cGlu Art: 98 mg/dL (11/25/22 16:34:00) cLac Art: 0.8 mmol/L (11/25/22 16:34:00) AaDO2 Art: 109.3 mmHg High (11/25/22 16:34:00) a/A Ratio Art: 35.4 % (11/25/22 16:34:00) Sample Type: Arterial Draw (11/25/22 16:34:00) Sample Site: L Radial (11/25/22 16:34:00) Device: Cannula (11/25/22 16:34:00) FIO2 B (11/25/22 16:34:00) Allens Test: Positive1 (11/25/22 16:34:00) Drawn by: [facility] (11/25/22 16:34:00) Diagnostic Results EKG NSR [address]-T wave changes Images XR Chest Single View 11/25/22 16:25:52 IMPRESSION: NO ACUTE CARDIOPULMONARY DISEASE. CLINICAL HISTORY: Chest pain COMPARISON: May 31, 2015 FINDINGS: Osseous structures intact. Cardiopericardial silhouette normal. Pulmonary vasculature normal. Lungs clear. Ordering Provider: Nelson Casillas Signed By: Steve Talbert MD 11/25/22 15:47:11 Radiation Dose: Ka,r in mGy = na DAP = na Signed By: Steve Talbert MD Assessment/Plan 1. Acute on chronic respi (more content not included)...[facility]:Result Comment: Electronically Signed By: FREDRICK MORFIN, Tariq\.br\Date and Time Signed: 11/25/22 17:22 [id number] Evaluation note* Encounter Date Diagnosis Assessment Notes Treatment Notes Treatment Clinical Notes Oct, COPD without exacerbation (ICD-10 - J44.9) Lengthy 30+ minute discussion with patient and today that we certainly could make referral to the pigment weigher. At this point she is really doing quite well/stable, so I feel comfortable simply maintaining her current regimen. I related to them the pathophysiology and potential outcomes of COPD. They are comfortable without making referral at this time. Certainly if her symptoms rapidly progress or change, then certainly we can get a hold of pulmonology. [facility] Other 06-28-2023 Evaluation note* Encounter Date Diagnosis Assessment Notes Treatment Notes Treatment Clinical Notes Sep, Lumbar radiculopathy (ICD-10 - M54.16) [facility] 05-30-2023 Evaluation note* Encounter Date Diagnosis Assessment Notes Treatment Notes Treatment Clinical Notes August, Anxiety (ICD-10 - F41.9) Bill Bojorquez E Rx sent. No other change today. August, COPD without exacerbation (ICD-10 - J44.9) Lengthy discussion with patient and today that certainly there is nothing further that I would suggest. I am interested to see what pulmonology says on Saturday. They may want to increase her Breo potentially. We did talk at some length about heart rate, and that her heart rate will increase physiologically if she is doing more activity. She freely admits that it does return back down when she rests. August, Dysuria (ICD-10 - R30.0) Etiology unclear, certainly no infection seen with recent testing. Pt to consider seeing [facility] - call if symptoms persist. [facility] Other 05-13-2023 Evaluation + Plan noteExtracted from: Title:APSO Note Author:Aniyah Whitt PA-C, Francisco Reese Date:08/18/22 1. Acute respiratory failure with hypoxia (J96.01: Acute respiratory failure with hypoxia) 2/2 COPD exacerbation caused by Parainfluenza virus 3 Pleurisy with subsequent pleuritic chest pain, has been coughing roughly approximately one month Plan: - Currently on 2L NC - Titrate O2 for sats 89-94% - Continue bronchodilators - Continue steroids - Complete empiric azithromycin - Wears nocturnal oxygen @ 2L NC - Desat study showed she qualifies for 3L NC - Uses combivent inhaler for rescue approximately 1-2 times per day. Does not have maintenance inhaler at home, has used Symbicort in the past and felt tightening in her esophagus as a result, recommend Rx for Breo at d/c Ok to d/c home from pulmonary perspective Recommend outpatient PFTs and follow up with pulmonology as outpatient to establish care in 3-4 weeks. 8. No contraindication to deep vein thrombosis (DVT) prophylaxis (Z78.9: Other specified health status) Heparin sq Extracted from: Title:Discharge Note Author:Tariq ALCALA MD Date: 08/18/22 Discharge To, Anticipated II - Home with home health Transported by, Anticipated - Family Discharge Diet(s): Regular (08/18/22 09:05:00) Prescriptions benzonatate 100 mg Cap, 200 mg= 2 cap(s), Oral, TID, PRN Breo Ellipta 100 mcg-25 mcg inhalation powder, 1 puff(s), Inhalation, Daily, 2 refills predniSONE 10 mg Tab, 1 -, Oral, As Directed Home Abilify 5 mg Tab, 5 mg= 1 tab(s), Oral, Daily albuterol 0.083% Inh Kaylee 3 mL, 0.083% - 3mL dosing units, Inhalation, q4hr, PRN Ambien 10 mg Tab, 10 mg= 1 tab(s), Oral, Once a day (at bedtime), PRN Combivent Respimat, 1 puff(s), Inhalation Evista 60 mg Tab, 60 mg= 1 tab(s), Oral, Daily omeprazole 20 mg Cap-EC, 20 mg= 1 cap(s), Oral, Daily oxybutynin 5 mg Tab, 5 mg= 1 tab(s), Oral, Daily, PRN Percocet 5 mg-325 mg oral tablet, 1 tab(s), Oral, q6hr, PRN Plavix 75 mg Tab, 75 mg= 1 tab(s), Oral Prozac 40 mg Cap, 40 mg= 1 cap(s), Oral, Daily simvastatin 40 mg Tab, 40 mg= 1 tab(s), Oral, Once a day (at bedtime) TriCor 145 mg oral tablet, 145 mg= 1 tab(s), Oral, Daily Vitamin D 50,000 intl units (1.25 mg) oral capsule, [address] International_Unit= 1 cap(s), Oral, qWeek Xanax 0.25 mg Tab, 0.25 mg= 1 tab(s), Oral, BID, PRN Zanaflex, Not taking With When Contact Information Ravithor Borden Within 2 weeks [address] [place] [address]- [phone] Business (1) Additional Instructions: PARRIS GUZMAN Within 3 to 5 days [address] [place] [address]- Business (1) Additional Instructions: PCP is closed today. Please contact the office for an appointment. Thank you! Extracted from: Title:APSO Note Author:Aniyah Whitt PA-C, Francisco Reese Date:08/17/22 1. Acute respiratory failure with hypoxia (J96.01: Acute respiratory failure with hypoxia) 2/2 COPD exacerbation caused by Parainfluenza virus 3 Pleurisy with subsequent pleuritic chest pain, has been coughing roughly approximately one month Plan: - Currently on 4L NC - Titrate O2 for sats 89-94% - Continue bronchodilators - Continue steroids - Continue empiric azithromycin - Uses combivent inhaler for rescue approximately 1-2 times per day. Does not have maintenance inhaler at home, has used Symbicort in the past and felt tightening in her esophagus as a result, recommend LABA/LAMA combination at discharge - Wears nocturnal oxygen @ 2L NC - Will need desaturation study prior to discharge to assess need for oxygen use during the day until exacerbation subsides. Recommend outpatient PFTs and follow up with pulmonology as outpatient to establish care in 3-4 weeks. 8. No contraindication to deep vein thrombosis (DVT) prophylaxis (Z78.9: Other specified health status) Heparin sq Extracted from: Title:APSO Note Author:Tariq ALCALA MD Date: 1. Acute respiratory failure with hypoxia (J96.01: Acute respiratory failure with hypoxia) - secondary to AECOPD secondary to parainfluenzae - procalcitonin negative, no clear infiltrate on imaging - continue PO azithromycin, IV solumedrol, duonebs INH - supplemental O2 94% on 4L NC - d/w pulmonary 2. Acute exacerbation of chronic obstructive pulmonary disease (COPD) (J44.1: Chronic obstructive pulmonary disease with (acute) exacerbation) - as above 3. Hyperlipidemia (E78.5: Hyperlipidemia, unspecified) - stable, continue PO simvastatin 4. History of CVA in adulthood (Z86.73: Personal history of transient ischemic attack (TIA), and cerebral infarction without residual deficits) - stable, continue PO plavix, and statin 5. Depression with anxiety (F41.8: Other specified anxiety disorders) - stable, continue PO prozac and xanax 6. Chronic GERD (K21.9: Gastro-esophageal reflux disease without esophagitis) - stable, continue PO omeprazole 7. Obesity due to excess calories (E66.09: Other obesity due to excess calories) - BMI 31 - lifestyle modification, outpatient PCP follow up 8. No contraindication to deep vein thrombosis (DVT) prophylaxis (Z78.9: Other specified health status) - ordered SCDs, continue heparin subcutaneous bid Orders: albuterol-ipratropium, Soln-Inh, Misc, Once, Stop date 08/16/22 20:10:02 EDT, Physician Stop, 08/16/22 20:10:02 EDT ibuprofen, 600 mg = 1 tab(s), Tab, Oral, TID PRN Pain, Routine, Start date 08/17/22 11:17:00 EDT, 08/17/22 11:17:00 EDT magnesium sulfate + Generic Diluent 50 mL, 2 gram = 50 mL, Soln-IV, IV Piggyback, Once, Stop date 08/17/22 12:00:00 EDT, Routine, Start date 08/17/22 12:00:00 EDT, 25 mL/hr, Infuse over 2 hour(s) Automated Diff Basic Metabolic Panel CBC w/ Auto Diff eGFR Occupational Therapy Additional Tx Occupational Therapy Evaluate Patient, Develop a Plan of Care and Implement Plan Physical Therapy Additional Tx Physical Therapy Evaluate Patient, Develop a Plan of Care and Implement Plan Referral to Resource Center Extracted from: Title:Consult Note Author:Velazquez. Date:08/16/22 1. Acute respiratory failure with hypoxia (J96.01: Acute respiratory failure with hypoxia) 2/2 COPD exacerbation caused by Parainfluenza virus 3 Pleurisy with subsequent pleuritic chest pain, has been coughing roughly approximately one month - Will need outpatient PFTs once exacerbation alleviated. - Agree with bronchodilators and steroids - Uses combivent inhaler for rescue approximately 1-2 times per day. Does not have maintenance inhaler at home, has used Symbicort in the past and felt tightening in her esophagus as a result, recommend LABA/LAMA combination at discharge - Wears nocturnal oxygen @ 2L NC - Will need desaturation study prior to discharge to assess need for oxygen use during the day until exacerbation subsides. - Would like her to follow up with pulmonology as outpatient to establish care in 3-4 weeks. 2. Acute exacerbation of chronic obstructive pulmonary disease (COPD) (J44.1: Chronic obstructive pulmonary disease with (acute) exacerbation) 3. Hyperlipidemia (E78.5: Hyperlipidemia, unspecified) 4. History of CVA in adulthood (Z86.73: Personal history of transient ischemic attack (TIA), and cerebral infarction without residual deficits) 5. Depression with anxiety (F41.8: Other specified anxiety disorders) 6. Chronic GERD (K21.9: Gastro-esophageal reflux disease without esophagitis) 7. Obesity due to excess calories (E66.09: Other obesity due to excess calories) 8. No contraindication to deep vein thrombosis (DVT) prophylaxis (Z78.9: Other specified health status) Extracted from: Title:APSO Note Author:Tariq ALCALA MD Date: 1. Acute respiratory failure with hypoxia (J96.01: Acute respiratory failure with hypoxia) - secondary to AECOPD - procalcitonin negative, no clear infiltrate on imaging - continue PO azithromycin, IV solumedrol, duonebs INH - check resp viral panel - supplemental O2 91% on 4L NC - consult pulmonary Ordered: 2. Acute exacerbation of chronic obstructive pulmonary disease (COPD) (J44.1: Chronic obstructive pulmonary disease with (acute) exacerbation) - as above 3. Hyperlipidemia (E78.5: Hyperlipidemia, unspecified) - stable, continue PO simvastatin 4. History of CVA in adulthood (Z86.73: Personal history of transient ischemic attack (TIA), and cerebral infarction without residual deficits) - stable, continue PO plavix, and statin 5. Depression with anxiety (F41.8: Other specified anxiety disorders) - stable, continue PO prozac and xanax 6. Chronic GERD (K21.9: Gastro-esophageal reflux disease without esophagitis) - stable, continue PO omeprazole 7. Obesity due to excess calories (E66.09: Other obesity due to excess calories) - BMI 31 - lifestyle modification, outpatient PCP follow up 8. No contraindication to deep vein thrombosis (DVT) prophylaxis (Z78.9: Other specified health status) - ordered SCDs, continue heparin subcutaneous bid Orders: acetylcysteine, 200 mg = 2 mL, Soln-Inh, Inhalation, QID, Routine, Start date 08/15/22 21:00:00 EDT, 08/15/22 18:40:00 EDT albuterol, 2.5 mg, 3 mL, Soln-Inh, Inhalation, q2hr PRN Shortness of breath or wheezing, Routine, Start date 08/15/22 15:16:00 EDT albuterol-ipratropium, Soln-Inh, Misc, Once, Stop date 08/15/22 16:52:03 EDT, Physician Stop, 08/15/22 16:52:03 EDT albuterol-ipratropium, 3 mL, Soln-Inh, Inhalation, QID, Routine, Start date 08/15/22 16:00:00 EDT alprazolam, 0.25 mg = 1 tab(s), Tab, Oral, BID PRN Anxiety, Routine, Start date 08/15/22 18:40:00 EDT, 08/15/22 18:40:00 EDT aripiprazole, 5 mg = 1 tab(s), Tab, Oral, Daily, Routine, Start date 08/16/22 9:00:00 EDT, 08/15/22 18:40:00 EDT azithromycin, 500 mg = 2 tab(s), Tab, Oral, Daily for 5 day(s), Stop date 08/21/22 8:59:00 EDT, Routine, Start date 08/16/22 9:00:00 EDT, 08/15/22 15:16:00 EDT benzonatate, 200 mg = 2 cap(s), Cap, Oral, TID, Routine, Start date 08/15/22 14:00:00 EDT clopidogrel, 75 mg = 1 tab(s), Tab, Oral, Every other day, Routine, Start date 08/16/22 9:00:00 EDT dexamethasone, 8 mg = 2 mL, Injection, IV Push, BID, Routine, Start date 08/15/22 21:00:00 EDT, 08/15/22 15:40:00 EDT fenofibrate, 145 mg = 1 tab(s), Tab, Oral, Daily, Routine, Start date 08/16/22 9:00:00 EDT, 08/15/22 18:40:00 EDT fluoxetine, 40 mg = 2 cap(s), Cap, Oral, Daily, Routine, Start date 08/16/22 9:00:00 EDT, 08/15/22 18:41:00 EDT heparin, 5,000 unit(s) = 1 mL, Injection, SubCutaneous, BID, Routine, Start date 08/15/22 21:00:00 EDT, 08/15/22 15:16:00 EDT ondansetron, 4 mg = 2 mL, Injection, IV Push, q6hr PRN Nausea/Vomiting, Routine, Start date 08/15/22 15:16:00 EDT, 08/15/22 15:16:00 EDT pantoprazole, 40 mg = 1 tab(s), Tab-DR, Oral, Daily, Routine, Start date 08/16/22 9:00:00 EDT, 08/15/22 18:41:00 EDT raloxifene, 60 mg = 1 tab(s), Tab, Oral, Daily, Routine, Start date 08/16/22 9:00:00 EDT, 08/15/22 18:41:00 EDT simvastatin, 40 mg = 1 tab(s), Tab, Oral, Once a day (at bedtime), Routine, Start date 08/15/22 21:00:00 EDT, 08/15/22 18:41:00 EDT zolpidem, 10 mg = 2 tab(s), Tab, Oral, Once a day (at bedtime) PRN Sleep, Routine, Start date 08/15/22 18:41:00 EDT, 08/15/22 18:41:00 EDT Activity As Tolerated Add on Test Basic Metabolic Panel Cardiac Monitoring CBC w/ Auto Diff Consult to Clinical Marble Cutter Consult to Pulmonology Continuous Pulse Oximetry Education Fall Risk Evaluate For Pulmonary Rehabilitation Extra Green Li Tube Extra Lav Tube Intake and Output Notify Provider Vital Signs Occupational Therapy Evaluate Patient, Develop a Plan of Care and Implement Plan Oxygen - Wean Oxygen Therapy Physical Therapy Evaluate Patient, Develop a Plan of Care and Implement Plan Place in Status Precautions Precautions PT & PTT Pulse Oximetry Regular Diet Respiratory Panel by PCR Resuscitation Status - Full Saline Lock Insert Smoking Cessation Instruction Sputum Culture Vital Signs Weight Extracted from: Title:Admission H & P Author:Tariq ALCALA MD Date :08/15/22 1. Acute respiratory failure with hypoxia (J96.01: Acute respiratory failure with hypoxia) - secondary to AECOPD - procalcitonin negative, no clear infiltrate on imaging - start PO azithromycin, IV solumedrol, duonebs INH - check resp viral panel - supplemental O2 91% on 4L NC - consult pulmonary 2. Acute exacerbation of chronic obstructive pulmonary disease (COPD) (J44.1: Chronic obstructive pulmonary disease with (acute) exacerbation) - as above 3. Hyperlipidemia (E78.5: Hyperlipidemia, unspecified) - stable, continue PO simvastatin 4. History of CVA in adulthood (Z86.73: Personal history of transient ischemic attack (TIA), and cerebral infarction without residual deficits) - stable, continue PO plavix, and statin 5. Depression with anxiety (F41.8: Other specified anxiety disorders) - stable, continue PO prozac and xanax 6. Chronic GERD (K21.9: Gastro-esophageal reflux disease without esophagitis) - stable, continue PO omeprazole 7. Obesity due to excess calories (E66.09: Other obesity due to excess calories) - BMI 31 - lifestyle modification, outpatient PCP follow up 8. No contraindication to deep vein thrombosis (DVT) prophylaxis (Z78.9: Other specified health status) - ordered SCDs, start heparin subcutaneous bid pt will require greater than 2 midnights stay for above Orders: albuterol, 2.5 mg, 3 mL, Soln-Inh, Inhalation, q2hr PRN Shortness of breath or wheezing, Routine, Start date 08/15/22 15:16:00 EDT albuterol-ipratropium, 3 mL, Soln-Inh, Inhalation, QID, Routine, Start date 08/15/22 16:00:00 EDT azithromycin, 500 mg = 2 tab(s), Tab, Oral, Daily for 5 day(s), Stop date 08/21/22 8:59:00 EDT, Routine, Start date 08/16/22 9:00:00 EDT, 08/15/22 15:16:00 EDT benzonatate, 200 mg = 2 cap(s), Cap, Oral, TID, Routine, Start date 08/15/22 14:00:00 EDT heparin, 5,000 unit(s) = 1 mL, Injection, SubCutaneous, BID, Routine, Start date 08/15/22 21:00:00 EDT, 08/15/22 15:16:00 EDT methylPREDNISolone, 40 mg = 1 mL, Injection, IV, q6hrFT, Routine, Start date 08/15/22 18:00:00 EDT, 08/15/22 15:16:00 EDT ondansetron, 4 mg = 2 mL, Injection, IV Push, q6hr PRN Nausea/Vomiting, Routine, Start date 08/15/22 15:16:00 EDT, 08/15/22 15:16:00 EDT Activity As Tolerated Add on Test Cardiac Monitoring Consult to Clinical Marble Cutter Consult to Pulmonology Evaluate For Pulmonary Rehabilitation Intake and Output Notify Provider Vital Signs Occupational Therapy Evaluate Patient, Develop a Plan of Care and Implement Plan Oxygen - Wean Oxygen Therapy Physical Therapy Evaluate Patient, Develop a Plan of Care and Implement Plan Place in Status Precautions PT & PTT Pulse Oximetry Regular Diet Respiratory Panel by PCR Resuscitation Status - Full Saline Lock Insert Smoking Cessation Instruction Sputum Culture Vital Signs Weight Extracted from: Title:ED Note Author:Niranjan VASQUES, David More te:08/15/22 COPD exacerbation (J44.1: Ch ronic obstructive pulmonary disease with (acute) exacerbation) Orders: albuterol, 5 mg, 6 mL, Soln-Inh, Inhalation, Once, Stop date 08/15/22 12:26:00 EDT, STAT, Start date 08/15/22 12:26:00 EDT albuterol, Soln-Inh, Misc, Once, Stop date 08/15/22 12:18:50 EDT, Physician Stop, 08/15/22 12:18:50 EDT albuterol-ipratropium, 3 mL, Soln-Inh, Inhalation, Once, Stop date 08/15/22 11:50:00 EDT, STAT, Start date 08/15/22 11:50:00 EDT lorazepam, 0.5 mg = 0.25 mL, Injection, IV Push, Once, Stop date 08/15/22 12:20:00 EDT, STAT, Start date 08/15/22 12:20:00 EDT, 08/15/22 12:20:00 EDT magnesium sulfate + Generic Diluent 50 mL, 2 gram = 50 mL, IV Piggyback, Once, Stop date 08/15/22 12:49:00 EDT, STAT, Start date 08/15/22 12:49:00 EDT, 150 mL/hr, Infuse over 20 minute(s), 08/15/22 12:49:00 EDT methylPREDNISolone, 125 mg = 2 mL, Injection, IV Push, Once, Stop date 08/15/22 12:44:00 EDT, STAT, Start date 08/15/22 12:44:00 EDT, 08/15/22 12:44:00 EDT Automated Diff B-Type Natriuretic Peptide Basic Metabolic Panel Blood Culture Charcoal Blood Culture Charcoal Blood Gas Art, with Lytes, Gluc, Lact CBC w/ Auto Diff CT Abdomen/Pelvis w/ Contrast CTA Chest ED Cardiac Monitoring ED Physician consult Hospitalist for continued care eGFR Extra SST Tube Hepatic Function Panel Lactic Acid Lipase Level Oxygen Saturation Oxygen Therapy Procalcitonin PT & PTT Rapid COVID Antigen ([facility] [place]) Saline Lock Insert Troponin 0 Hr. Troponin 3 Hr. Troponin 6 Hr. Troponin 9 Hr. UA With Cult Reflex Future Appointments Appointment Date:08/28/2022 08:30:00 AM Scheduled Provider: Location:.[facility] Appointment Type:PUL Six Minute Walk Test (FT) [facility]05-13-2023 Hospital Discharge instructions Patient Education 08/18/2022 11:27:10 Influenza, Adult, Cacl-ae-Kdgr Influenza, Adult Influenza is also called the flu. It is an infection in the lungs, nose, and throat (respiratory tract). It spreads easily from person to person (is contagious). The flu causes symptoms that are like a cold, along with high fever and body aches. What are the causes? This condition is caused by the influenza virus. You can get the virus by: Breathing in droplets that are in the air after a person infected with the flu coughed or sneezed. Touching something that has the virus on it and then touching your mouth, nose, or eyes. What increases the risk? Certain things may make you more likely to get the flu. These include: Not washing your hands often. Having close contact with many people during cold and flu season. Touching your mouth, eyes, or nose without first washing your hands. Not getting a flu shot every year. You may have a higher risk for the flu, and serious problems, such as a lung infection (pneumonia),if you: Are older than 65. Are . Have a weakened disease-fighting system (immune system) because of a disease or because you are taking certain medicines. Have a long-term (chronic) condition, such as: ?Heart, kidney, or lung disease. ?Diabetes. ?Asthma. Have a liver disorder. Are very overweight (morbidly obese). Have anemia. What are the signs or symptoms? Symptoms usually begin suddenly and last 4 14 days. They may include: Fever and chills. Headaches, body aches, or muscle aches. Sore throat. Cough. Runny or stuffy (congested) nose. Feeling discomfort in your chest. Not wanting to eat as much as normal. Feeling weak or tired. Feeling dizzy. Feeling sick to your stomach or throwing up. How is this treated? If the flu is found early, you can be treated with antiviral medicine. This can help to reduce how bad the illness is and how long it lasts. This may be given by mouth or through an IV tube. Taking care of yourself at home can help your symptoms get better. Your doctor may want you to: Take qdxu-bjl-rghxlar medicines. Drink plenty of fluids. The flu often goes away on its own. If you have very bad symptoms or other problems, you may be treated in a hospital. Follow these instructions at home: Activity Rest as needed. Get plenty of sleep. Stay home from work or school as told by your doctor. ?Do not leave home until you do not have a fever for 24 hours without taking medicine. ?Leave home only to go to your doctor. Eating and drinking Take an ORS (oral rehydration solution). This is a drink that is sold at pharmacies and stores. Drink enough fluid to keep your pee pale yellow. Drink clear fluids in small amounts as you are able. Clear fluids include: ?Water. ?Ice chips. ?Fruit juice mixed with water. ?Low-calorie sports drinks. Eat bland foods that are easy to digest. Eat small amounts as you are able. These foods include: ?Bananas. ?Applesauce. ?Rice. ?Lean meats. ?Levasy. ?Crackers. Do not eat or drink: ?Fluids that have a lot of sugar or caffeine. ?Alcohol. ?Spicy or fatty foods. General instructions Take meqv-apm-fnjdruz and prescription medicines only as told by your doctor. Use a cool mist humidifier to add moisture to the air in your home. This can make it easier for youto breathe. ?When using a cool mist humidifier, clean it daily. Empty water and replace with clean water. Cover your mouth and nose when you cough or sneeze. Wash your hands with soap and water often and for at least 20 seconds. This is also important afteryou cough or sneeze. If you cannot use soap and water, use alcohol-based hand outside sales representative insurance. Keep all follow-up visits. How is this prevented? Get a flu shot every year. You may get the flu shot in late summer, fall, or winter. Ask your doctor when you should get your flu shot. Avoid contact with people who are sick during fall and winter. This is cold and flu season. Contact a doctor if: You get new symptoms. You have: ?Chest pain. ?Watery poop (diarrhea). ?A fever. Your cough gets worse. You start to have more mucus. You feel sick to your stomach. You throw up. Get help right away if you: Have shortness of breath. Have trouble breathing. Have skin or nails that turn a bluish color. Have very bad pain or stiffness in your neck. Get a sudden headache. Get sudden pain in your face or ear. Cannot eat or drink without throwing up. These symptoms may represent a serious problem that is an emergency. Get medical help right away. Call your local emergency services (911 in the [place] Do not wait to see if the symptoms will go away. Do not drive yourself to the hospital. Summary Influenza is also called the flu. It is an infection in the lungs, nose, and throat. It spreads easily from person to person. Take svji-tbw-hvmxzke and prescription medicines only as told by your doctor. Getting a flu shot every year is the best way to not get the flu. This information is not intended to replace advice given to you by your health care provider. Make sure you discuss any questions you have with your health care provider. Document Revised: 11/11/2020 Document Reviewed: 11/11/2020 [employer] Patient Education 2022 [employer]. 08/18/2022 11:26:39 Chronic Obstructive Pulmonary Disease, [id number] Chronic Obstructive Pulmonary Disease Chronic obstructive pulmonary disease (COPD) is a long-term (chronic) lung problem. When you have COPD, it is hard for air to get in and out of your lungs. Usually the condition gets worse over time, and your lungs will never return to normal. There are things you can do to keep yourself as healthy as possible. What are the causes? Smoking. This is the most common cause. Certain genes passed from parent to child (inherited). What increases the risk? Being exposed to secondhand smoke from cigarettes, pipes, or cigars. Being exposed to chemicals and other irritants, such as fumes and dust in the work environment. Having chronic lung conditions or infections. What are the signs or symptoms? Shortness of breath, especially during physical activity. A long-term cough with a large amount of thick mucus. Sometimes, the cough may not have any mucus (dry cough). Wheezing. Breathing quickly. Skin that looks harvey or blue, especially in the fingers, toes, or lips. Feeling tired (fatigue). Weight loss. Chest tightness. Having infections often. Episodes when breathing symptoms become much worse (exacerbations). At the later stages of this disease, you may have swelling in the ankles, feet, or legs. How is this treated? Taking medicines. Quitting smoking, if you smoke. Rehabilitation. This includes steps to make your body work better. It may involve a team of specialists. Doing exercises. Making changes to your diet. Using oxygen. Lung surgery. Lung transplant. Comfort measures (palliative care). Follow these instructions at home: Medicines Take serm-myh-olqvasb and prescription medicines only as told by your doctor. Talk to your doctor before taking any cough or allergy medicines. You may need to avoid medicines that cause your lungs to be dry. Lifestyle If you smoke, stop smoking. Smoking makes the problem worse. Do not smoke or use any products that contain nicotine or tobacco. If you need help quitting, ask your doctor. Avoid being around things that make your breathing worse. This may include smoke, chemicals, and fumes. Stay active, but remember to rest as well. Learn and use tips on how to manage stress and control your breathing. Make sure you get enough sleep. Most adults need at least 7 hours of sleep every night. Eat healthy foods. Eat smaller meals more often. Rest before meals. Controlled breathing Learn and use tips on how to control your breathing as told by your doctor. Try: Breathing in (inhaling) through your nose for 1 second. Then, pucker your lips and breath out (exhale) through your lips for 2 seconds. Putting one hand on your belly (abdomen). Breathe in slowly through your nose for 1 second. Your hand on your belly should move out. Pucker your lips and breathe out slowly through your lips. Your hand on your belly should move in as you breathe out. Controlled coughing Learn and use controlled coughing to clear mucus from your lungs. Follow these steps: 1.Lean your head a little forward. 2.Breathe in deeply. 3.Try to hold your breath for 3 seconds. 4.Keep your mouth slightly open while coughing 2 times. 5.Spit any mucus out into a tissue. 6.Rest and do the steps again 1 or 2 times as needed. General instructions Make sure you get all the shots (vaccines) that your doctor recommends. Ask your doctor about a flushot and a pneumonia shot. Use oxygen therapy and pulmonary rehabilitation if told by your doctor. If you need home oxygen therapy, ask your doctor if you should buy a tool to measure your oxygen level (oximeter). Make a COPD action plan with your doctor. This helps you to know what to do if you feel worse than usual. Manage any other conditions you have as told by your doctor. Avoid going outside when it is very hot, cold, or humid. Avoid people who have a sickness you can catch (contagious). Keep all follow-up visits. Contact a doctor if: You cough up more mucus than usual. There is a change in the color or thickness of the mucus. It is harder to breathe than usual. Your breathing is faster than usual. You have trouble sleeping. You need to use your medicines more often than usual. You have trouble doing your normal activities such as getting dressed or walking around the house. Get help right away if: You have shortness of breath while resting. You have shortness of breath that stops you from: ?Being able to talk. ?Doing normal activities. Your chest hurts for longer than 5 minutes. Your skin color is more blue than usual. Your pulse oximeter shows that you have low oxygen for longer than 5 minutes. You have a fever. You feel too tired to breathe normally. These symptoms may represent a serious problem that is an emergency. Do not wait to see if the symptoms will go away. Get medical help right away. Call your local emergency services (911 in the [place] Do not drive yourself to the hospital. Summary Chronic obstructive pulmonary disease (COPD) is a long-term lung problem. The way your lungs work will never return to normal. Usually the condition gets worse over time. There are things you can do to keep yourself as healthy as possible. Take owqu-orx-yqredul and prescription medicines only as told by your doctor. If you smoke, stop. Smoking makes the problem worse. This information is not intended to replace advice given to you by your health care provider. Make sure you discuss any questions you have with your health care provider. Document Revised: 01/31/2021 Document Reviewed: 01/31/2021 [employer] Patient Education 2022 [employer]. Follow Up Care 08/15/2022 11:37:35 With:Yung Hough Address: [address] [place] [phone] Business (1) When:2 weeks With:PARRIS GUZMAN Address: [address] [place] [phone]- Business (1) When:3 to 5 days Comments:PCP is closed today. Please contact the office for an appointment. Thank you! [facility]04-12-2023 Evaluation note* Encounter Date Diagnosis Assessment Notes Treatment Notes Treatment Clinical Notes Jul, Pure hypercholestero lemia (ICD-10 - E78.0) [facility] 04-04-2023 Evaluation note* Encounter Date Diagnosis Assessment Notes Treatment Notes Treatment Clinical Notes Jul, Esophageal dysphagia (ICD-10 - R13.19) Lengthy 30+ minute discussion with patient today that she really needs to see gastroenterology to do some scoping. This could be a stricture, but I also wonder about fungal esophagitis, which could be from the inhaled steroid. She voices agreement and understanding and we will make referral. Jul, COPD without exacerbation (ICD-10 - J44.9) At this point I would like to go ahead and pursue an overnight pulse ox. If she is not able to tolerate the inhaled steroids, she may need to do oxygen, she may need to pursue this especially at bedtime. We will make referral. Jul, Encounter for screening mammogram for malignant neoplasm of breast (ICD-10 - Z12.31) [facility] 01-25-2023 Evaluation note* Encounter Date Diagnosis Assessment Notes Treatment Notes Treatment Clinical Notes Apr, Anxiety (ICD-10 - F41.9) [facility] 01-13-2023 Evaluation note* Encounter Date Diagnosis Assessment Notes Treatment Notes Treatment Clinical Notes Apr, COPD without exacerbation (ICD-10 - J44.9) Lengthy 30+ minute discussion with patient and today that certainly I think her COPD is playing a large role in her concerns. The fact that she was released from the hospital after the stress test really indicates that there were no concerning abnormal findings. Patient and her are made aware that if there were concerning findings, she would have been capped and cardiology would have reviewed immediately. We have a call out to cardiology to confirm that the stress test was negative. This is important to them as they would like to leave for [place] tomorrow. I think that they can certainly travel without concern. It is related that there are medical facilities between here in [place] and numerous medical facilities in [place] should she develop some concern. Apr, Depression with anxiety (ICD-10 - F41.8) Patient also admits today that she feels that some of her symptoms may be anxiety related. I certainly think this is not unlikely, but she definitely does have known COPD concerns. [facility] 12-21-2022 Evaluation note* Encounter Date Diagnosis Assessment Notes Treatment Notes Treatment Clinical Notes Mar, Dyspnea on exertion (ICD-10 - R06.09) Mar, Exercise-induced tachycardia (ICD-10 - R00.0) [facility] 12-21-2022 Evaluation note* Encounter Date Diagnosis Assessment Notes Treatment Notes Treatment Clinical Notes Mar, COPD without exacerbation (ICD-10 - J44.9) Lengthy 30+ minute discussion with patient today that we could certainly try to get her some oxygen, but I do not feel she is going to qualify based on results. We did talk about the possibility of this being cardiac related, so we could pursue an echocardiogram just to be sure that her pulm function is normal. She will ponder this. Mar, Dry mouth (ICD-10 - R68.2) Due to bladder med - aware to simply sip water. Mar, Lumbar radiculopathy (ICD-10 - M54.16) Bill Bojorquez [facility] 11-30-2022 Evaluation note* Encounter Date Diagnosis Assessment Notes Treatment Notes Treatment Clinical Notes Feb, Lumbar radiculopathy (ICD-10 - M54.16) [facility] 11-21-2022 Evaluation note* Encounter Date Diagnosis Assessment Notes Treatment Notes Treatment Clinical Notes Feb, Depression with anxiety (ICD-10 - F41.8) [facility] 11-09-2022 Evaluation note* Encounter Date Diagnosis Assessment Notes Treatment Notes Treatment Clinical Notes Feb, Lumbar radiculopathy (ICD-10 - M54.16) [facility] 10-31-2022 Evaluation note* Encounter Date Diagnosis Assessment Notes Treatment Notes Treatment Clinical Notes Jan, COPD without exacerbation (ICD-10 - J44.9) RX printed, as Pt is traveling to [place] for the winter. Call with any change. Jan, Lumbar radiculopathy (ICD-10 - M54.16) Unfortunate level of concern but nothing further to suggest. Continue the Percocet, and patient does use this judiciously. [facility] 10-21-2022 Evaluation note* Encounter Date Diagnosis Assessment Notes Treatment Notes Treatment Clinical Notes Jan, Insomnia, unspecified (ICD-10 - G47.00) [facility] 10-11-2022 Evaluation note* Encounter Date Diagnosis Assessment Notes Treatment Notes Treatment Clinical Notes Jan, Lumbar radiculopathy (ICD-10 - M54.16) [facility] 09-28-2022 Evaluation note* Encounter Date Diagnosis Assessment Notes Treatment Notes Treatment Clinical Notes Dec, COPD (chronic obstructive pulmonary disease) (ICD-10 - J44.9) [facility] 09-28-2022 Evaluation note* Encounter Date Diagnosis Assessment Notes Treatment Notes Treatment Clinical Notes Dec, COPD without exacerbation (ICD-10 - J44.9) Lengthy 30+ minute discussion with patient and today. We reviewed her recent surgical notes as well as discussed the oxygen usage. I think patient would benefit from daily inhaled steroid, especially with this action and now dropping low at night. Therefore, pt to investigate cost of Symibort through [facility]...Call if desires RX...Continue with home overnight O2 use. [facility] 09-19-2022 Evaluation note* Encounter Date Diagnosis Assessment Notes Treatment Notes Treatment Clinical Notes Dec, Lumbar radiculopathy (ICD-10 - M54.16) [facility] 08-26-2022 Evaluation note* Encounter Date Diagnosis Assessment Notes Treatment Notes Treatment Clinical Notes Nov, Acute cough (ICD-10 - R05.1) Nov, Lumbar radiculopathy (ICD-10 - M54.16) [facility] 08-08-2022 Evaluation note* Encounter Date Diagnosis Assessment Notes Treatment Notes Treatment Clinical Notes Nov, Acute cough (ICD-10 - R05.1) [facility] 07-25-2022 Evaluation note* Encounter Date Diagnosis Assessment Notes Treatment Notes Treatment Clinical Notes Oct, Lumbar radiculopathy (ICD-10 - M54.16) [facility] 07-01-2022 Evaluation note* Encounter Date Diagnosis Assessment Notes Treatment Notes Treatment Clinical Notes Oct, Lumbar radiculopathy (ICD-10 - M54.16) Lengthy 30+ minute discussion with patient and today that I feel there is really very little else to suggest at this time for her back. We could have her see yet another neurosurgeon if she desires. It would appear that her back is stable, at least as far as the MRI goes. She voices agreement and understanding. She will keep us informed as to her desires. Oct, Lumbar degenerative disc disease (ICD-10 - M51.36) Oct, Lumbosacral spondylosis (ICD-10 - M47.817) Oct, Bladder prolapse, female, acquired (ICD-10 - N81.10) Certainly patient to continue to follow-up with [employer] for surgery. She may need surgical clearance moving forward. [facility] 06-15-2022 Evaluation note* Encounter Date Diagnosis Assessment Notes Treatment Notes Treatment Clinical Notes Sep, Lumbar radiculopathy (ICD-10 - M54.16) Sep, COPD (chronic obstructive pulmonary disease) (ICD-10 - J44.9) [facility] 06-08-2022 Evaluation note* Encounter Date Diagnosis Assessment Notes Treatment Notes Treatment Clinical Notes Sep, Lumbar radiculopathy (ICD-10 - M54.16) [facility] 05-24-2022 Evaluation note* Encounter Date Diagnosis Assessment Notes Treatment Notes Treatment Clinical Notes August, Lumbar radiculopathy (ICD-10 - M54.16) [facility] 05-02-2022 Evaluation note* Encounter Date Diagnosis Assessment Notes Treatment Notes Treatment Clinical Notes August, Lumbar radiculopathy (ICD-10 - M54.16) [facility] 04-22-2022 Evaluation note* Encounter Date Diagnosis Assessment Notes Treatment Notes Treatment Clinical Notes Jul, Depression with anxiety (ICD-10 - F41.8) Jul, Insomnia, unspecified (ICD-10 - G47.00) [facility] 04-04-2022 Evaluation note* Encounter Date Diagnosis Assessment Notes Treatment Notes Treatment Clinical Notes Jul, Pure hypercholestero lemia (ICD-10 - E78.0) Jul, Lumbar radiculopathy (ICD-10 - M54.16) [facility] 02-16-2022 Evaluation note* Encounter Date Diagnosis Assessment Notes Treatment Notes Treatment Clinical Notes May, Depression with anxiety (ICD-10 - F41.8) [facility] 01-17-2022 Evaluation note* Encounter Date Diagnosis Assessment Notes Treatment Notes Treatment Clinical Notes Apr, Wheeze (ICD-10 - R06.2) [facility] 12-17-2021 Evaluation note* Encounter Date Diagnosis Assessment Notes Treatment Notes Treatment Clinical Notes Mar, Pure hypercholestero lemia (ICD-10 - E78.0) Mar, Insomnia, unspecifie d (ICD-10 - G47.00) Mar, Lumbar radiculopathy (ICD-10 - M54.16) [facility] 12-01-2021 Evaluation note* Encounter Date Diagnosis Assessment Notes Treatment Notes Treatment Clinical Notes Mar, Depression with anxiety (ICD-10 - F41.8) [facility] 11-29-2021 Evaluation note* Encounter Date Diagnosis Assessment Notes Treatment Notes Treatment Clinical Notes Feb, Lumbar radiculopathy (ICD-10 - M54.16) [facility] 10-19-2021 Evaluation note* Encounter Date Diagnosis Assessment Notes Treatment Notes Treatment Clinical Notes Jan, Onychomycosis (ICD-1 0 - B35.1) [facility] 10-19-2021 Evaluation note* Encounter Date Diagnosis Assessment Notes Treatment Notes Treatment Clinical Notes Jan, COPD (chronic obstructive pulmonary disease) (ICD-10 - J44.9) Lengthy discussion with patient today that I feel comfortable we just simply continue to monitor. We will certainly allow her to guide us as to how she feels with her breathing. If she is not particularly having shortness of breath, we can simply monitor. We can always add the daily steroid inhaler in the future. Jan, Onychomycosis (ICD-10 - B35.1) ER sent. We discussed the possibility of using the oral medication if this is a failure. Jan, Acute cystitis with hematuria (ICD-10 - N30.01) Patient states her symptoms have improved dramatically and she was simply wants to monitor at this time. I suggest she call if she desires antibiotic moving forward. Jan, Lumbar radiculopathy (ICD-10 - M54.16) E Rx sent. OARRs completed. No other change today. [facility] 03-01-2012 History general Narrative - Reported* Type Description Date Medical History osteoporosis Medical History Esophageal reflux Medical History hypercholesterolemia Medical History hypertriglyceridemia Medical History insomnia Medical History CVA - 06/2011 Surgical History gall bladder 1968 Surgical History Procedure:cardiac catheterizati on;Disease: 2003 Surgical History Procedure:cardiac catheterizati on;Disease: 2011 Surgical History tubal ligation 1970 Surgical History hysterectomy 1971 Surgical History Procedure:cholecystectomy;Disea se: 1968 Surgical History oophorectomy 1984 Surgical History Procedure:hysterectomy;Disease: 1970 Surgical History neck fusion 2002 Surgical History Procedure:Neck surgery;Disease: 2002 Surgical History heart Cath 2001 Surgical History Procedure:ovary removed;Disease : 1981 Surgical History Procedure:Removal of scar tissue from gallblader;Disease: 2007 Surgical History release of abdominal adhesions 03/2012 Surgical History bladder surgery 10/2018 Surgical History Procedure:Right thumb surgery;D isease: 1998 Surgical History Procedure:Weights be tween 7#13 to 4#10;Disease: x3 Surgical History colonoscopy 2017 Surgical History Bladder sling w/ Dr. Marshall Surgical History Low Back Surgery/ Cyst Removal 12/10/19 Hospitalization History childbirth Hospitalization History with surgeries [facility] 03-01-2012 History general Narrative - Reported* Type Description Date Medical History osteoporosis Medical History Esophageal reflux Medical History hypercholesterolemia Medical History hypertriglyceridemia Medical History insomnia Medical History CVA - 06/2011 Surgical History gall bladder 1968 Surgical History Procedure:cardiac catheterizati on;Disease: 2003 Surgical History Procedure:cardiac catheterizati on;Disease: 2011 Surgical History tubal ligation 1970 Surgical History hysterectomy 1971 Surgical History Procedure:cholecystectomy;Disea se: 1968 Surgical History oophorectomy 1984 Surgical History Procedure:hysterectomy;Disease: 1970 Surgical History neck fusion 2002 Surgical History Procedure:Neck surgery;Disease: 2002 Surgical History heart Cath 2001 Surgical History Procedure:ovary removed;Disease : 1981 Surgical History Procedure:Removal of scar tissue from gallblader;Disease: 2007 Surgical History release of abdominal adhesions 03/2012 Surgical History bladder surgery 10/2018 Surgical History Procedure:Right thumb surgery;D isease: 1998 Surgical History Procedure:Weights be tween 7#13 to 4#10;Disease: x3 Surgical History colonoscopy 2017 Surgical History Bladder sling w/ Dr. Marshall Surgical History Low Back Surgery/ Cyst Removal 12/10/19 Surgical History Bladder Sling Surgery 12/27/21 Hospitalization History childbirth Hospitalization History with surgeries [facility] 03-01-2012 History general Narrative - Reported* Type Description Date Medical History osteoporosis Medical History Esophageal reflux Medical History hypercholesterolemia Medical History hypertriglyceridemia Medical History insomnia Medical History CVA - 06/2011 Medical History COPD Surgical History gall bladder 1968 Surgical History Procedure:cardiac catheterizati on;Disease: 2003 Surgical History Procedure:cardiac catheterizati on;Disease: 2011 Surgical History tubal ligation 1970 Surgical History hysterectomy 1971 Surgical History Procedure:cholecystectomy;Disea se: 1969 Surgical History oophorectomy 1984 Surgical History Procedure:hysterectomy;Disease: 1970 Surgical History neck fusion 2002 Surgical History Procedure:Neck surgery;Disease: 2002 Surgical History heart Cath 2001 Surgical History Procedure:ovary removed;Disease : 1981 Surgical History Procedure:Removal of scar tissue from gallblader;Disease: 2007 Surgical History release of abdominal adhesions 03/2012 Surgical History bladder surgery 10/2018 Surgical History Procedure:Right thumb surgery;D isease: 1998 Surgical History Procedure:Weights be tween 7#13 to 4#10;Disease: x3 Surgical History colonoscopy 2017 Surgical History Bladder sling w/ Dr. Marshall Surgical History Low Back Surgery/ Cyst Removal 12/10/19 Surgical History Bladder Sling Surgery 12/27/21 Hospitalization History childbirth Hospitalization History with surgeries Hospitalization History COPD Acute Exacerbation 08/15/2022 [facility] 03-01-2012 History general Narrative - Reported* Type Description Date Medical History osteoporosis Medical History Esophageal reflux Medical History hypercholesterolemia Medical History hypertriglyceridemia Medical History insomnia Medical History CVA - 06/2011 Medical History COPD Surgical History gall bladder 1968 Surgical History Procedure:cardiac catheterizati on;Disease: 2003 Surgical History Procedure:cardiac catheterizati on;Disease: 2011 Surgical History tubal ligation 1970 Surgical History hysterectomy 1971 Surgical History Procedure:cholecystectomy;Disea se: 1968 Surgical History oophorectomy 1984 Surgical History Procedure:hysterectomy;Disease: 1970 Surgical History neck fusion 2002 Surgical History Procedure:Neck surgery;Disease: 2002 Surgical History heart Cath 2001 Surgical History Procedure:ovary removed;Disease : 1981 Surgical History Procedure:Removal of scar tissue from gallblader;Disease: 2007 Surgical History release of abdominal adhesions 03/2012 Surgical History bladder surgery 10/2018 Surgical History Procedure:Right thumb surgery;D isease: 1998 Surgical History Procedure:Weights be tween 7#13 to 4#10;Disease: x3 Surgical History colonoscopy 2017 Surgical History Bladder sling w/ Dr. Marshall Surgical History Low Back Surgery/ Cyst Removal 12/10/19 Surgical History Bladder Sling Surgery 12/27/21 Hospitalization History childbirth Hospitalization History with surgeries Hospitalization History COPD Acute Exacerbation 08/15/2022 Hospitalization History COPD 11/2022 [facility] Other Evaluation + Plan note Future Appointments Appointment Date:10/24/2022 09:30:00 AM Scheduled Provider:Yung Hough MD Location:FT.Pulmonary Clinic App[facility]id[facility]No[facility] Other Evaluation noteNo assessment information available [facility] Work Phone: Evaluation note* Diagnosis Onset Date Resolution Status COPD (chronic obstructive pulmonary disease) acute Open wound of left knee acut e Oral thrush noneactive [facility] Work Phone: Evaluation note* Diagnosis Onset Date Resolution Status COPD (chronic obstructive pulmonary disease) acute Open wound of left knee reso lved Oral thrush noneactive Chronic pain syndrome acute [facility] Work Phone: Evaluation note* Diagnosis Onset Date Resolution Status COPD (chronic obstructive pulmonary disease) acute Open wound of left knee reso lved Oral thrush noneactive Chronic pain syndrome acute COPD without exacerbation [place] Lumbar degenerative disc disease acute Supplemental oxygen dependent acute [facility] Work Phone: Evaluation note* Diagnosis Onset Date Resolution Status Oral thrush noneactive Chronic pain syndrome acute COPD without exacerbation [place] Lumbar degenerative disc disease acute Supplemental oxygen dependent acute COPD without exacerbation [place] UTI (urinary tract infection) noneactive Chest pain noneactive [facility] Work Phone: Evaluation note* Diagnosis Urge urinary incontinence- Primary Urge incontinence Pelvic pain in female Unspecified symptom associated with female genital organs Nocturia documented in [facility] Diagnosis Onset Date Resolution Status Chronic pain syndrome acute COPD without exacerbation ac [place] Lumbar degenerative disc disease acute Supplemental oxygen dependent acute COPD without exacerbation ac [place] UTI (urinary tract infection) noneactive Chest pain noneactive Dyspnea noneactive [facility] Work Phone: History general [facility] - [facility] Other History general [facility] - [facility] Other Hospital course Narrative No data available for this section [facility] No data available for this section [facility] Discharge instructions Additional Instructions As we discussed because you have a chronic prescription for morphine I am not able to write you a prescription for more pain medicine. You will need to talk to Trixie Ross if you need a prescription for more pain medicine. Ching should be removed in 2 weeks. You are welcome to return here or to see Dr. Guzman to have them removed. If there are any problems or concerns, we are more than happy to see you. Please do wear the knee immobilizer when you are up and walking. Referral to home health will be sent to help you with bandage changes.[facility] Work Phone: Hospital Discharge instructions Additional Instructions Keep your wound clean and apply Neosporin daily Your Percocet at home for severe pain Elevate Take your antibiotic as instructed until gone Please return here if you have any increased redness, swelling, purulent drainage or any other concerns Continue use of your knee immobilizer Have your [facility]: Progress note No data available for this section [facility] for referral (narrative)* Outpatient Procedure (Routine) - Pending Review Specialty Diagnoses / Procedures Referred By Contac t Referred To Contact [facility] Diagnoses Urge urinary incontinence Procedures BOTOX/CYSTO CYSTOURETHROSCOPY INJ CHEMODENERVATION BLADDER Mara Monroy MD [address] [place] [address] [place] [place] [address] Referral ID Status Reason Start Date Expiration Date Visits Requested Visits Authorized [id number] Pending Review Auto-Generat ed Referral 09/12/2023 09/11/2024 1 1 [facility] for visit Narrativediscuss COPD and get a new referral to Dr. Miller [employer] Other Summary Purpose Family History Relationship Condition Age at Onset Recorded Date/T korin father Pulmonary emphysema Unknown Not Specified Cerebrovascular accident (CVA) Unknown Pulmonary emphysema Unknown Relationship Condition Age at Onset Recorded Date/T korin father Pulmonary emphysema Unknown Not Specified Cerebrovascular accident (CVA) Unknown Pulmonary emphysema Unknown brother Unknown Diabetes mellitus Unknown Family history of lung cancer Unknown Malignant neoplasm Unknown father Unknown Family history of emphysema Unknown Not Specified Unknown Hypertension Unknown History of stroke Unknown Acute cerebrovascular accident (CVA) Unkn own natural son Unknown sister Diabetes mellitus Unknown Relationship Condition Age at Onset Recorded Date/T korin father Pulmonary emphysema Unknown mother Cerebrovascular accident (CVA) Unknown Pulmonary emphysema Unknown brother Unknown Diabetes mellitus Unknown Family history of lung cancer Unknown Malignant neoplasm Unknown father Unknown Family history of emphysema Unknown mother Unknown Hypertension Unknown History of stroke Unknown Acute cerebrovascular accident (CVA) Unkn own son Unknown sister Diabetes mellitus Unknown Advance Directives Advance Directive Response Recorded Date/ Time Advance Directives No January 18, 2017 9:04am Advance Directive Response Recorded Date/ Time Advance Directives No January 18, 2017 8:04am Advance Directive Response Recorded Date/ Time Advance Directives No August 09, 2023 10:35am Hospital Course Note [facility] Patient: NICOLE LOMELI [address] [place] [address] MR#: [id number] DISCHARGE SUMMARY : 48 Service Date: 12/13/19 2245 Discharge Secondary Diagnoses/Problem Medical Problems COPD (chronic obstructive pulmonary disease) History of TIA (transient ischemic attack) Hyperlipidemia Lumbar stenosis Pre-op evaluation Surgical Problems Status post lumbar spine surgery for decompression of spinal cord Discharge Medications Stop taking the following medications: oxyCODONE HCl 5mg AND Acetaminophen 325mg (Percocet 5mg/325mg Tablet*) 1 EACH TABLET ORAL EVERY 12 HOURS NEEDED as needed for Moderate Pain Qty = 14 Continue taking these medications: Simvastatin * (Zocor *) 40 MG TABLET 40 MILLIGRAM ORAL AT BEDTIME Comments: TAKE TONIGHT Zolpidem Tartrate * (Ambien 5mg Tablet*) 5 MG TABLET 5 MILLIGRAM ORAL AT BEDTIME Qty = 30 Comments: TAKE 1 TABLET BY MOUTH ONCE DAILY AT BEDTIME FOR 30 DAYS - SIG Obtained From [employer] (more content not included)... Chief Complaint and Reason for Visit Chief Complaint lumbar radiuculoapth y Cystocele, Rectocele, Stress Incontinence Chief Complaint lumbar radiuculoapth y Cystocele, Rectocele, Stress Incontinence Cystocele, Rectocele, Stress Incontinence Chief Complaint r06.09 r00.0 Chief Complaint Fall Chief Complaint Fall Sent by home health Chief Complaint Fall Sent by home health [id number] M25.462 Chief Complaint Open Wound - Graft A pproved Thrush like in mouth and throat/ no pain Reason for Visit COPD (chronic obstru ctive pulmonary disease) Open wound of left knee Oral thrush Chief Complaint Open Wound - Graft A pproved Thrush like in mouth and throat/ no pain PATIENT HERE FOR A 2 MONTH FOLLOW UP Reason for Visit COPD (chronic obstru ctive pulmonary disease) Open wound of left knee Oral thrush Chronic pain syndrome Chief Complaint Open Wound - Graft A pproved Thrush like in mouth and throat/ no pain PATIENT HERE FOR A 2 MONTH FOLLOW UP Amb Documentation Reason for Visit COPD (chronic obstru ctive pulmonary disease) Open wound of left knee Oral thrush Chronic pain syndrome Chief Complaint Open Wound - Graft A pproved Thrush like in mouth and throat/ no pain PATIENT HERE FOR A 2 MONTH FOLLOW UP Amb Documentation Amb Documentation Amb Documentation Amb Documentation 6 month follow up Reason for Visit COPD (chronic obstru ctive pulmonary disease) Open wound of left knee Oral thrush Chronic pain syndrome COPD without exacerbation Lumbar degenerative disc disease Supplemental oxygen dependent Chief Complaint Thrush like in mouth and throat/ no pain PATIENT HERE FOR A 2 MONTH FOLLOW UP Amb Documentation Amb Documentation Amb Documentation Amb Documentation 6 month follow up Amb Documentation f/u from hospital stay Reason for Visit Oral thrush Chronic pain syndrome COPD without exacerbation Lumbar degenerative disc disease Supplemental oxygen dependent COPD without exacerbation UTI (urinary tract infection) Chest pain Chief Complaint PATIENT HERE FOR A 2 MONTH FOLLOW UP Amb Documentation Amb Documentation Amb Documentation Amb Documentation 6 month follow up Amb Documentation f/u from hospital stay n30.1 *LAB* SMR pt, bronchitis Reason for Visit Chronic pain syndrom e COPD without exacerbation Lumbar degenerative disc disease Supplemental oxygen dependent COPD without exacerbation UTI (urinary tract infection) Chest pain Dyspnea Chief Complaint PATIENT HERE FOR A 2 MONTH FOLLOW UP Amb Documentation Amb Documentation Amb Documentation Amb Documentation 6 month follow up Amb Documentation f/u from hospital stay n30.1 *LAB* SMR pt, bronchitis Patient here for a 2 month f/u in office Reason for Visit Chronic pain syndrom e COPD without exacerbation Lumbar degenerative disc disease Supplemental oxygen dependent COPD without exacerbation UTI (urinary tract infection) Chest pain COPD with exacerbation Chief Complaint f/u from hospital [facility] n30.1 *LAB* SMR pt, bronchitis Patient here for a 2 month f/u in office Amb Documentation Patient here for a f/u in office Reason for Visit COPD without exacerb ation UTI (urinary tract infection) Chest pain COPD with exacerbation Chronic pain syndrome Additional Source Comments INFORMATION SOURCE (unrecogn ized section and content) DATE CREATED AUTHOR 01/02/2020 [facility] DATE CREATED AUTHOR AUTHOR'S ORGANIZ ATION 05/24/2020 [facility] DATE CREATED AUTHOR AUTHOR'S ORGANIZ ATION 02/01/2023 [facility] DATE CREATED AUTHOR AUTHOR'S ORGANIZ ATION 08/27/2023 [facility] DATE CREATED AUTHOR AUTHOR'S ORGANIZ ATION 08/28/2023 [facility] DATE CREATED AUTHOR AUTHOR'S ORGANIZ ATION 08/29/2023 [facility] [place] [facility] DATE CREATED AUTHOR AUTHOR'S ORGANIZ ATION 09/10/2023 [facility] DATE CREATED AUTHOR AUTHOR'S ORGANIZ ATION 09/13/2023 [facility] DATE CREATED AUTHOR AUTHOR'S ORGANIZ ATION 09/14/2023 [facility] DATE CREATED AUTHOR AUTHOR'S ORGANIZ ATION 10/02/2023 [facility] [place] [facility] Center DATE CREATED AUTHOR AUTHOR'S ORGANIZ ATION 11/08/2023 [facility] DATE CREATED AUTHOR AUTHOR'S ORGANIZ ATION 11/12/2023 [facility] REASON FOR VISIT (unrecogniz ed section and content) Reason Comments New Patient CAMERON/? prolapse Reason Comments Patient Question Care Teams (unrecognized sec tion and content) Team Status: Active Member Role Status Dates Parris Guzman DO Primary Care Provider Active Team Status: Inactive Member Role Status Dates Parris Guzman DO Primary Care Provider Active Start: May 22, 2023 End: May 22, 2023 Michaela Fernandez APRN Attending Provider Active St art: May 22, 2023 End: May 22, 2023 Team Status: Inactive Member Role Status Dates Parris Guzman DO Primary Care Provid er, Attending Provider Active Start: June 20, 2023 End: June 20, 2023 Team Status: Inactive Member Role Status Dates Parris Guzman DO Primary Care Provider Active Start: July 12, 2023 End: July 12, 2023 Zuleyka Ross APRN Attending Provider Active Start: July 12, 2023 End: July 12, 2023 Team Status: Active Member Role Status Dates Parris Guzman DO Primary Care Provider Active Start: July 16, 2023 Denis Lundy LPN Attending Provider Active St art: July 16, 2023 Team Status: Active Member Role Status Dates Parris Guzman DO Primary Care Provider Active Start: May 22, 2023 Michaela Fernandez APRN Attending Provider Active St art: May 22, 2023 Team Status: Inactive Member Role Status Dates Parris Guzman DO Primary Care Provider Active Sangeetha Mares DO Attending Provider Active Team Status: Inactive Member Role Status Dates Parris Guzman DO Primary Care Provider, Attending Provider Active Team Status: Inactive Member Role Status Dates Cheko Rolon Jr, MD Emergency Provider Active Parris Guzman DO Primary Care Provider Active Team Status: Inactive Member Role Status Dates Parris Guzman DO Primary Care Provider Active Jennyfer Juarez , CYNDY Emergency Provider Active Team Status: Inactive Member Role Status Dates Parris Guzman DO Primary Care Provider Active Start: July 17, 2023 End: July 17, 2023 Zuleyka Ross , CYNDY Attending Provider Active Start: July 17, 2023 End: July 17, 2023 Team Status: Active Member Role Status Dates Parris Guzman DO Primary Care Provider Active Start: July 24, 2023 Shannon Stern LPN Attending Provider Active S tart: July 24, 2023 Team Status: Active Member Role Status Dates Parris Guzman DO Primary Care Provider Active Start: July 25, 2023 Shannon Stern LPN Attending Provider Active S tart: July 25, 2023 Team Status: Inactive Member Role Status Dates Parris Guzman DO Primary Care Provid er, Attending Provider Active Start: August 12, 2023 End: August 12, 2023 Team Status: Active Member Role Status Dates Parris Guzman DO Primary Care Provider Active Start: August 16, 2023 Denis Lundy LPN Attending Provider Active St art: August 16, 2023 Team Status: Inactive Member Role Status Dates Parris Guzman DO Primary Care Provid er, Attending Provider Active Start: September 04, 2023 End: September 04, 2023 [employer]andise [employer] Team Leader Relationship Specialty Start Date End Date Parris Guzman DO [address] [address] PCP - General Family Medicine 09/11/23 Parris Guzman DO [address] [address] Referring Family Medicine 09/11/23 Merchandise Flow Team Leader Relationship Specialty Start Date End Date Parris Guzman DO [address] [facility] [address] [place] [address] PCP - General Family Medicine 09/11/23 Thomas, Parris Hensley [address] [facility] [address] [place] [address] Referring Family Medicine 09/11/23 Team Status: Active Member Role Status Dates Parris Guzman DO Primary Care Provid er, Attending Provider Active Start: September 11, 2023 Team Status: Inactive Member Role Status Dates Parris Guzman DO Primary Care Provider Active Start: September 23, 2023 End: September 23, 2023 Toña Peñaloza APRN Attending Provider Active Start: September 23, 2023 End: September 23, 2023 Team Status: Inactive Member Role Status Dates Parris Guzman DO Primary Care Provider Active Start: September 24, 2023 End: September 24, 2023 Zuleyka Ross APRN Attending Provider Active Start: September 24, 2023 End: September 24, 2023 Team Status: Active Member Role Status Dates Parris Guzman DO Primary Care Provider Active Start: November 07, 2023 YESSENIA Wall Attending Provider Active St art: November 07, 2023 Team Status: Inactive Member Role Status Dates Parris Guzman DO Primary Care Provider Active Start: November 15, 2023 End: November 15, 2023 Zuleyka Ross APRN Attending Provider Active Start: November 15, 2023 End: November 15, 2023 Goals (unrecognized section and content) Goals may be documented in a n alternate section Source Comments (unrecognize d section and content) In the event this informatio n is protected by the Federal Confidentiality of Alcohol and Drug Abuse Patient Records regulations: The Federal rules restrict any use of the information to criminally investigate or prosecute any alcohol or drug abuse patient.[facility] the event this information is protected by the Federal Confidentiality of Alcohol and Drug Abuse Patient Records regulations: The Federal rules restrict any use of the information to criminally investigate or prosecute any alcohol or drug abuse patient.[facility] FOR RECORDS PERTAINING TO PATIENTS WHO ARE OR HAVE BEEN ENROLLED IN A CHEMICAL DEPENDENCY/SUBSTANCEABUSE PROGRAM, SOME INFORMATION MAY BE OMITTED. This clinical summary was aggregated from multiple sources. Caution should be exercised in using it in the provision of clinical care. This summary normalizes information from multiple sources, and as a consequence, information in this document may materially change the coding, format and clinical context of patient data. In addition, data may be omitted in some cases. CLINICAL DECISIONS SHOULD BE BASED ON THE PRIMARY CLINICAL RECORDS. [facility] [employer] [facility]. provides no warranty or guarantee of the accuracy or completeness of information in this document.
[2023-12-02 08:03] VITALS: BP 141/79; PULSE 87; TEMP 36.1; O2SAT 96
[2023-12-02] MEDS: 0.9 % SODIUM CHLORIDE 500 ML 50 ML IV (08:11)
[2023-12-02] MEDS: BUPIVACAINE HCL 0.25% PF 25 MG/10 ML VIAL INJ (08:45)
[2023-12-02] MEDS: DEXAMETHASONE SOD PHOS 10 MG/ML VIAL INJ (08:45)
[2023-12-02] MEDS: IOHEXOL 240 MG/ML - 10 ML VIAL INJ (08:45)
[2023-12-02] MEDS: 0.9 % SODIUM CHLORIDE 10 ML SYRINGE - SALINE FLUSH INJ (08:45)
[2023-12-02] MEDS: LIDOCAINE HCL 2% 400 MG/20 ML MDV 5 ML INJ (08:46)
--- NOTE | 2023-12-02 08:48 | W.PM.PROCNOT ---
Date of procedure: 12/02/23 Pre-op diagnosis: Pain due to lumbar stenosis with neurogenic claudication Post-op diagnosis: same as pre-op Procedure: Procedure: Bilateral L3-4 transforaminal epidural steroid injection Medications: Bupivacaine 0.25% 2cc, lidocaine 2% 1cc, kenalog 80mg The patient was seen and examined in the preoperative holding area.? Informed consent was obtained and placed on the chart.? Patient was brought to the medical procedure unit and placed in the prone position where a timeout was completed verifying the correct patient, procedure site, position, and planned special equipment using sterile aseptic technique.? Under direct fluoroscopic visualization a 25-gauge Quincke tipped spinal needle was advanced at level left L3-4 to the designated neural foramen where contrast dye was injected to show adequate spread.? There was no evidence of vascular or adverse uptake.? Epidural spread was appreciated.? The above-mentioned injectate was then placed in a 1.5 mL aliquot preceded by negative aspiration.? The needle was removed. The same procedure, at the same level, was completed on the opposite side. ? Patient was taken to the postprocedural recovery area and monitored for an appropriate length of time before found suitable for discharge in the accompaniment of a responsible adult. Anesthesia: MAC Surgeon: Ru Ferrera Pathology: none sent Condition: stable Disposition: no change
[2023-12-02 08:52] VITALS: BP 114/71; PULSE 75; TEMP 36.3; O2SAT 100
[2023-12-02 08:57] VITALS: BP 100/69; PULSE 75; TEMP 36.3; O2SAT 100
--- NOTE | 2023-12-02 10:02 | PC.NURSE ---
Post procedure pt reported weakness to bilateral legs when attempted to stand and transfer to wheelchair. Pt was assisted back to stretcher and then assisted to wheelchair. Pt observed and regularly checked. Pt was assisted with standing after she reported numbness to legs was resolving and was assisted with taking multiple steps. She was able to do this without difficulty and verbalized that she would be able to ambulate in to home. Pt taken by wheelchair to family in car.
== END 2023-12-02 10:02 | disposition home or self-care (01) ==
LOC: SURGOUT 07:30
PROVIDERS: PCP Family Medicine; Visit Provider Anesthesiology
DX: M48.062 Spinal stenosis, lumbar region with neurogenic claudication (principal)
CPT/HCPCS: 64483; J0665; J1100; J2704; Q9966

== ENCOUNTER 2023-12-11 08:37 | Outpatient (OUT) | payer MEDICARE, OTHER, SELFPAY ==
--- NOTE | 2023-12-11 09:10 | P.CN_ITS ---
Consult Note: HPI Data of Consult Patient: known to practice within the last 3 years Consult date: 11/04/23 Requesting Physician: Rosa Maria Rico NP Primary Care Provider: PARRIS ROMAN Consult Narrative Reason for consult: neck, bilateral arm, low back, bilateral leg pain Narrative: 73yof who presents for assessment. persistent low back, leg, neck, bilateral arm pain. imaging reviewed. cervical mri with severe stenosis and compression at several levels, worst at c4-5. lumbar mri with more moderate degnerative naa nges, from l2 to l5. multiple levels of stenosis seen throughout lumbar spine. has continued in a provider directed home exercise program >6 weeks, without benefit. continues with percocet, morphine, butrans, tizanidine, abilify, xanax through palliative care. patient recently underwent bilateral C4-5 TFESI with >70% improvement ongoing. Patient reports no custodial benefit from bilateral L3- 4 TFESI, the first day and for 1 week she noticed moderate improvement in her pain/functional ability. Patient reports intermittent weakness of RLE without numbness or tingling. cc:: CC: Rosa Maria Rico NP Review of Systems ROS Status of ROS 10 or more systems reviewed and unremark able except as noted in history and below Musculoskeletal Reports: back pain and neck pain; Denies: extremity pain [facility] Medical History (Updated 12/11/23 @ 09:14 by Rosa Maria Rico NP) Acid reflux ?K21.9 - Gastro-esophageal reflux disease without esophagitis (ICD-10) Cervical vertebral fusion ?M43.22 - Fusion of spine, cervical region (ICD-10) COPD (chronic obstructive pulmonary disease) ?J44.9 - Chronic obstructive pulmonary disease, unspecified (ICD-10) Stroke ?I63.9 - Cerebral infarction, unspecified (ICD-10) Vertigo ?R42 - Dizziness and giddiness (ICD-10) Surgical History History of lumbar surgery ?Z98.890 - Other specified postprocedural states (ICD-10) History of bladder suspension procedure ?Z98.890 - Other specified postprocedural states (ICD-10) ?Z87.448 - Personal history of other diseases of urinary system (ICD-10) H/O dilation of urethra ?Z98.890 - Other specified postprocedural states (ICD-10) History of colonoscopy ?Z98.890 - Other specified postprocedural states (ICD-10) History of laparoscopy ?Z98.890 - Other specified postprocedural states (ICD-10) History of cardiac cath ?Z98.890 - Other specified postprocedural states (ICD-10) History of hand surgery ?Z98.890 - Other specified postprocedural states (ICD-10) H/O oophorectomy History of hysterectomy ?Z90.710 - Acquired absence of both cervix and uterus (ICD-10) Hx of cholecystectomy ?Z90.49 - Acquired absence of other specified parts of digestive tract (ICD- 10) Meds Home Medications and Allergies Home Medications ?Medication ?Instructions ?Recorded ?Confirmed ?Type albuterol sulfate 90 mcg/actuation 2 inh inhalation Q8H PRN shortness 10/28/23 12/02/23 History aerosol inhaler of breath or wheezing aripiprazole 5 mg tablet (Abilify) 5 mg PO DAILY 10/28/23 12/02/23 History cholecalciferol (vitamin D3) 50 10,000 unit PO DAILY 10/28/23 12/02/23 History mcg (2,000 unit) tablet (Vitamin D3) clopidogrel 75 mg tablet (Plavix) 75 mg PO DAILY 10/28/23 12/02/23 History fenofibrate micronized 134 mg 134 mg PO DAILY 10/28/23 12/02/23 History capsule fluoxetine 40 mg capsule (Prozac) 40 mg PO DAILY 10/28/23 12/02/23 History fluticasone furoate 100 1 inh inhalation DAILY 10/28/23 12/02/23 History mcg-vilanterol 25 mcg/dose inhalation powder (Breo Ellipta) ipratropium 18 mcg-albuterol 103 1 spray inhalation PRN shortness 10/28/23 History mcg/actuation aerosol inhaler of breath morphine 15 mg tablet,extended 15 mg PO Q12H 10/28/23 12/02/23 History release (MS Contin) multivitamin-ferrous 1 tab PO DAILY 10/28/23 12/02/23 History fumarate-folic acid 18 mg-400 mcg tablet (Centrum Women) omeprazole 20 mg capsule,delayed 20 mg PO DAILY 10/28/23 12/02/23 History release oxycodone-acetaminophen 10 mg-325 1 tab PO Q4H 10/28/23 12/02/23 History mg tablet (Percocet) raloxifene 60 mg tablet (Evista) 60 mg PO DAILY 10/28/23 12/02/23 History sennosides 8.6 mg tablet (Senokot) 8.6 mg PO DAILY 10/28/23 12/02/23 History simvastatin 40 mg tablet 40 mg PO DAILY 10/28/23 12/02/23 History tizanidine 2 mg capsule 2 mg PO BID PRN muscle spasticity 10/28/23 12/02/23 History morphine 15 mg tablet,extended 15 mg PO Q12H #60 tabs 11/04/23 12/02/23 Rx release naloxone 4 mg/actuation nasal 4 mg intranasal Q3M PRN opioid 11/04/23 12/02/23 Rx spray (Narcan) overdose #2 ea Allergies Allergy/AdvReac Type Severity Reaction Status Date / Time No Known Drug Allergies Allergy Verified 12/02/23 08:13 Exam Constitutional Documenting provider has reviewed patient's vital signs: yes Common normals: no apparent distress, oriented x3, healthy appearing, alert and well nourished General appearance: cooperative HENMT Common normals: normocephalic, hearing grossly normal bilaterally and moist oral mucous membranes Head and scalp: normocephalic Eye Common normals: PERRL Pupil: PERRL Neck & C-Spine Common normals: full ROM General: normal visual inspection Cervical spine: cervical ROM abnormal, pain with cervical ROM and cervical spine tenderness Other: negative spurlings sensation intact BUE strength 5/5 in BUE Chest Common normals: inspection of chest normal Respiratory Common normals: normal respiratory effort, no retractions and no use of accessory muscles Back & Pelvis Lumbar spine/lower back: ROM limited, pain with ROM and straight leg raise negative bilaterally Other: positive facet loading L3-S1 sensation intact BLE strength 5/5 in BLE Extremity Common normals: normal to inspection and full ROM Neuro Common normals: oriented x3, CN's II-XII intact bilaterally, moves all extremities, no focal motor deficits, no sensory deficits noted, deep tendon reflexes 2+ bilaterally and gait normal Sensorium/orientation: alert Gait (neuro): assistive device used Motor exam: strength 5/5 throughout and no movement abnormalities noted Psych Common normals: mental status grossly normal, thought process normal, cooperative, affect normal, speech normal and activity/motor behavior normal Speech: normal speech Thought process: normal thought process Results Additional Findings Additional findings: If on a controlled substance or opioids, I have checked an [place] report on this patient and there are no aberrancies noted in the prescribing history.??If on a controlled substance or opioid a drug screen was completed and reviewed within the last year, and if there has not been a drug screen completed we ordered one today to monitor higher risk, state monitored pain medication use. As part of providing excellent, safe, comprehensive care, the following was completed at our patient's visit: 1. A medication reconciliation and review to ensure accurate knowledge of current/active medications, including asking our patients to inform us about any [id number] medications or herbal remedies/nutritional supplements/alternative remedies. 2. A review to specifically ensure our patients have had annual screening for screening for depression, screening for tobacco use, and screening for unhealthy alcohol use. For concerning screenings had a discussion with the patient, provided patient education, and recommended follow-up with primary care provider when appropriate. If patient noted with a risk of falling, they received education on strength, gait, and balance training to prevent future risk of falling. Assessment and Plan Assessment and Plan (1) Lumbar spondylosis: Assessment and Plan: The patient has had over 3 months of moderate to severe low back pain with functional impairment and inadequate response to conservative care including NSAIDS (unless there are contraindication such as concurrent blood thinners), multiple oral or topical pain medications, and home exercise program/physical therapy.? Patient has completed >6 weeks of guided home exercise program and/or formal physical therapy program without relief of their symptoms.? We discussed the risks and benefits of the procedure with the patient, and we are NOT planning on using sedation as outlined in the guidelines from Medicare unless there is a documented reason that sedation would be strongly recommended.?? ?The procedure will be completed with fluoroscopic guidance.? (2) Cervical postlaminectomy syndrome: (3) Cervical stenosis of spinal canal: Assessment and Plan: bilateral C4-5 TFESI >70% improvement in pain and functional ability ongoing (4) Lumbar postlaminectomy syndrome: (5) Lumbar stenosis with neurogenic claudication: Plan bilateral L3-4 L4-5 MBB x2 working towards RFA continue HEP as tolerated continue care with palliative f/u after each injection
== END 2023-12-11 08:38 | disposition home or self-care (01) ==
LOC: PM 08:37
PROVIDERS: PCP Family Medicine; Visit Provider Nurse Practitioner
DX: M47.816 Spondylosis without myelopathy or radiculopathy, lumbar region (principal); M96.1 Postlaminectomy syndrome, not elsewhere classified; M48.02 Spinal stenosis, cervical region; M48.062 Spinal stenosis, lumbar region with neurogenic claudication
CPT/HCPCS: G0463

== ENCOUNTER 2023-12-23 09:00 | Day surgery (SDC) | payer MEDICARE, OTHER, SELFPAY ==
[2023-12-23 09:35] VITALS: BP 130/70; PULSE 80; TEMP 36.2; O2SAT 98
[2023-12-23 10:08] VITALS: BP 163/93; BP 175/83; PULSE 84; PULSE 87; O2SAT 100
[2023-12-23] MEDS: BUPIVACAINE HCL 0.25% PF 25 MG/10 ML VIAL INJ (10:11)
[2023-12-23] MEDS: LIDOCAINE HCL 2% 400 MG/20 ML MDV 15 ML INJ (10:11)
--- NOTE | 2023-12-23 10:11 | W.PM.PROCNOT ---
Date of procedure: 12/23/23 Pre-op diagnosis: Pain due to lumbar spondylosis without myelopathy Post-op diagnosis: same as pre-op Procedure: Procedure: Bilateral L3-4, 4-5 medial branch block Medications: Bupivacaine 0.25% 6cc The patient was seen and examined in the preoperative holding area.? An informed consent was obtained and placed on the chart.? The patient was brought to the medical procedure unit and placed in the prone position.? A timeout was completed verifying correct patient, procedure site, positioning, plan, and special equipment.? Using aseptic technique, the needle was placed at left L3. Under direct fluoroscopic visualization a Quincke-tipped spinal needle was advanced to the junction of the superior articulating process with the transverse process at the designated medial branch segment.? Preceded by negative aspiration, the above-mentioned injectate was placed in 1 mL aliquots.? The procedure was repeated at left L4, 5.? The needle was removed and insertion site was covered. The same procedure, at the same levels, was completed on the right side. The patient was taken to the postprocedural recovery area and monitored for an appropriate length of time before found suitable for discharge in the company of a responsible adult. Anesthesia: Local Surgeon: Ru Ferrera Pathology: none sent Condition: stable Disposition: no change
== END 2023-12-23 10:20 | disposition home or self-care (01) ==
LOC: SURGOUT 09:01
PROVIDERS: PCP Family Medicine; Visit Provider Anesthesiology
DX: M47.816 Spondylosis without myelopathy or radiculopathy, lumbar region (principal)
CPT/HCPCS: 64493; 64494; J0665

== ENCOUNTER 2024-01-02 10:05 | Outpatient (OUT) | payer MEDICARE, OTHER, SELFPAY ==
--- NOTE | 2024-01-02 10:20 | P.CN_ITS ---
Consult Note: HPI Data of Consult Patient: known to practice within the last 3 years Consult date: 11/04/23 Requesting Physician: Rosa Maria Rico NP Primary Care Provider: PARRIS ROMAN Consult Narrative Reason for consult: low back pain Narrative: 73yof who presents for assessment. persistent low back pain. imaging reviewed. lumbar mri with more moderate degenerative changes, from l2 to l5. multiple levels of stenosis seen throughout lumbar spine. has continued in a provider directed home exercise program >6 weeks, without benefit. continues with percocet, morphine, butrans, tizanidine, abilify, xanax through palliative care. recently underwent bilateral L3-4 L4-5 MBB #1 with >80% improvement in pain and functional ability immediately following and 6 hours following the procedure. cc:: CC: Rosa Maria Rico NP Review of Systems ROS Status of ROS 10 or more systems reviewed and unremark able except as noted in history and below Musculoskeletal Reports: back pain and neck pain [facility] Medical History (Updated 12/11/23 @ 09:14 by Rosa Maria Rico NP) Acid reflux ?K21.9 - Gastro-esophageal reflux disease without esophagitis (ICD-10) Cervical vertebral fusion ?M43.22 - Fusion of spine, cervical region (ICD-10) COPD (chronic obstructive pulmonary disease) ?J44.9 - Chronic obstructive pulmonary disease, unspecified (ICD-10) Stroke ?I63.9 - Cerebral infarction, unspecified (ICD-10) Vertigo ?R42 - Dizziness and giddiness (ICD-10) Surgical History History of lumbar surgery ?Z98.890 - Other specified postprocedural states (ICD-10) History of bladder suspension procedure ?Z98.890 - Other specified postprocedural states (ICD-10) ?Z87.448 - Personal history of other diseases of urinary system (ICD-10) H/O dilation of urethra ?Z98.890 - Other specified postprocedural states (ICD-10) History of colonoscopy ?Z98.890 - Other specified postprocedural states (ICD-10) History of laparoscopy ?Z98.890 - Other specified postprocedural states (ICD-10) History of cardiac cath ?Z98.890 - Other specified postprocedural states (ICD-10) History of hand surgery ?Z98.890 - Other specified postprocedural states (ICD-10) H/O oophorectomy History of hysterectomy ?Z90.710 - Acquired absence of both cervix and uterus (ICD-10) Hx of cholecystectomy ?Z90.49 - Acquired absence of other specified parts of digestive tract (ICD- 10) Meds Home Medications and Allergies Home Medications ?Medication ?Instructions ?Recorded ?Confirmed ?Type albuterol sulfate 90 mcg/actuation 2 inh inhalation Q8H PRN shortness 10/28/23 12/23/23 History aerosol inhaler of breath or wheezing aripiprazole 5 mg tablet (Abilify) 5 mg PO DAILY 10/28/23 12/23/23 History cholecalciferol (vitamin D3) 50 10,000 unit PO DAILY 10/28/23 12/23/23 History mcg (2,000 unit) tablet (Vitamin D3) clopidogrel 75 mg tablet (Plavix) 75 mg PO DAILY 10/28/23 12/23/23 History fenofibrate micronized 134 mg 134 mg PO DAILY 10/28/23 12/23/23 History capsule fluoxetine 40 mg capsule (Prozac) 40 mg PO DAILY 10/28/23 12/23/23 History fluticasone furoate 100 1 inh inhalation DAILY 10/28/23 12/23/23 History mcg-vilanterol 25 mcg/dose inhalation powder (Breo Ellipta) ipratropium 18 mcg-albuterol 103 1 spray inhalation PRN shortness 10/28/23 History mcg/actuation aerosol inhaler of breath morphine 15 mg tablet,extended 15 mg PO Q12H 10/28/23 12/23/23 History release (MS Contin) multivitamin-ferrous 1 tab PO DAILY 10/28/23 12/23/23 History fumarate-folic acid 18 mg-400 mcg tablet (Centrum Women) omeprazole 20 mg capsule,delayed 20 mg PO DAILY 10/28/23 12/23/23 History release oxycodone-acetaminophen 10 mg-325 1 tab PO Q4H 10/28/23 12/23/23 History mg tablet (Percocet) raloxifene 60 mg tablet (Evista) 60 mg PO DAILY 10/28/23 12/23/23 History sennosides 8.6 mg tablet (Senokot) 8.6 mg PO DAILY 10/28/23 12/23/23 History simvastatin 40 mg tablet 40 mg PO DAILY 10/28/23 12/23/23 History tizanidine 2 mg capsule 2 mg PO BID PRN muscle spasticity 10/28/23 12/23/23 History morphine 15 mg tablet,extended 15 mg PO Q12H #60 tabs 11/04/23 12/23/23 Rx release naloxone 4 mg/actuation nasal 4 mg intranasal Q3M PRN opioid 11/04/23 12/23/23 Rx spray (Narcan) overdose #2 ea Allergies Allergy/AdvReac Type Severity Reaction Status Date / Time No Known Drug Allergies Allergy Verified 12/23/23 09:45 Exam Constitutional Documenting provider has reviewed patient's vital signs: yes Common normals: no apparent distress, oriented x3, healthy appearing, alert and well nourished General appearance: cooperative HENMT Common normals: normocephalic, hearing grossly normal bilaterally and moist oral mucous membranes Head and scalp: normocephalic Eye Common normals: PERRL Pupil: PERRL Neck & C-Spine Common normals: full ROM General: normal visual inspection Cervical spine: cervical ROM abnormal, pain with cervical ROM and cervical spine tenderness Other: negative spurlings sensation intact BUE strength 5/5 in BUE Chest Common normals: inspection of chest normal Respiratory Common normals: normal respiratory effort, no retractions and no use of ac cessory muscles Back & Pelvis Lumbar spine/lower back: ROM limited, pain with ROM and straight leg raise negative bilaterally Other: positive facet loading L3-S1 sensation intact BLE strength 5/5 in BLE Extremity Common normals: normal to inspection and full ROM Neuro Common normals: oriented x3, CN's II-XII intact bilaterally, moves all extremities, no focal motor deficits, no sensory deficits noted and deep tendon reflexes 2+ bilaterally Sensorium/orientation: alert Gait (neuro): assistive device used Motor exam: strength 5/5 throughout and no movement abnormalities noted Psych Common normals: mental status grossly normal, thought process normal, cooperative, affect normal, speech normal and activity/motor behavior normal Speech: normal speech Thought process: normal thought process Results Additional Findings Additional findings: If on a controlled substance or opioids, I have checked an [place] report on this patient and there are no aberrancies noted in the prescribing history.??If on a controlled substance or opioid a drug screen was completed and reviewed within the last year, and if there has not been a drug screen completed we ordered one today to monitor higher risk, state monitored pain medication use. As part of providing excellent, safe, comprehensive care, the following was completed at our patient's visit: 1. A medication reconciliation and review to ensure accurate knowledge of current/active medications, including asking our patients to inform us about any [id number] medications or herbal remedies/nutritional supplements/alternative remedies. 2. A review to specifically ensure our patients have had annual screening for screening for depression, screening for tobacco use, and screening for unhealthy alcohol use. For concerning screenings had a discussion with the patient, provided patient education, and recommended follow-up with primary care provider when appropriate. If patient noted with a risk of falling, they received education on strength, gait, and balance training to prevent future risk of falling. Assessment and Plan Assessment and Plan (1) Lumbar spondylosis: Assessment and Plan: The patient has had over 3 months of moderate to severe low back pain with fun ctional impairment and inadequate response to conservative care including NSAIDS (unless there are contraindication such as concurrent blood thinners), multiple oral or topical pain medications, and home exercise program/physical therapy.? Patient has completed >6 weeks of guided home exercise program and/or formal physical therapy program without relief of their symptoms.? We discussed the risks and benefits of the procedure with the patient, and we are NOT planning on using sedation as outlined in the guidelines from Medicare unless there is a documented reason that sedation would be strongly recommended.?? ?The procedure will be completed with fluoroscopic guidance.? (2) Cervical postlaminectomy syndrome: (3) Cervical stenosis of spinal canal: Assessment and Plan: bilateral C4-5 TFESI >70% improvement in pain and functional ability ongoing (4) Lumbar postlaminectomy syndrome: (5) Lumbar stenosis with neurogenic claudication: Plan bilateral L3-4 L4-5 MBB x2 working towards RFA for lumbar spondylosis and axial low back pain continue HEP as tolerated continue care with palliative f/u after each injection
== END 2024-01-02 10:06 | disposition home or self-care (01) ==
LOC: PM 10:05
PROVIDERS: PCP Family Medicine; Visit Provider Nurse Practitioner
DX: M47.816 Spondylosis without myelopathy or radiculopathy, lumbar region (principal); M96.1 Postlaminectomy syndrome, not elsewhere classified; M48.02 Spinal stenosis, cervical region; M48.062 Spinal stenosis, lumbar region with neurogenic claudication
CPT/HCPCS: G0463

== ENCOUNTER 2024-01-13 08:19 | Day surgery (SDC) | payer MEDICARE, OTHER, SELFPAY ==
--- OUTSIDE RECORDS SUMMARY | 2024-01-13 08:38 | XMS_ITS | CCD ---
Author Organization [facility]ini[facility] Care Team Providers Care Cotton Gin Yard Supervisor Name Role Phone REQUEST, NONE LISTED Admitting Unavailable REQUEST, NONE LISTED Attending Unavailable REQUEST, NONE LISTED Consulting Unavailable REQUEST, NONE LISTED Attending Unavailable REQUEST, NONE LISTED Consulting Unavailable REQUEST, NONE LISTED Admitting Unavailable PARRIS GUZMAN Admitting Unavailable ALTAGRACIA VARGAS V Consulting Unavailable PARRIS GUZMAN Attending Unavailable PARRIS GUZMAN Consulting Unavailable Parris Guzman Unavailable DO Parris Guzman. Primary Care Provider DO Parris Guzman. Attending Provider [phone] DO Sangeetha Mares Attending Provider DO Parris Guzman. Primary Care Provider DO Parris Guzman. Attending Provider PARRIS GUZMAN Primary Care Physician Jovana Armstrong Unavailable Unavailable Charlotte SMITH Unavailable Chaparro Heck Unavailable [phone] Zuleyka Ross Unavailable MD Cheko Rolon Jr Emergency Provider DO Parris Guzmna. Primary Care Provider CYNDY Juarez Emergency Provider DO Parris Guzman Attending Provider Dr. Gaston Alvarez II Attending Unavailable Thomas, Dr. Parris Hensley Referring Unavaila ble DO Parris Guzman Primary Care Provider CYNDY Fernandez Attending Provider [phone] Albert RODAS Admitting Unavailable Yosvany Villeda Attending Unavailable [facility] Cardio, XXXX Consulting Unavailable Kirnus, Reid D [...] Thomas, Parris M. Primary Care Unavailable Thomas, Praris M. Attending Unavailable Thomas, Parris MMichael Admitting Unavailable Thomas, Parris M. Primary Care Unavailable Cheko Rolon Jr Admitting Unavailable Cheko Rolon Jr Attending Unavailable Saffle, Jennyfer N Admitting Unavailable Saffle, Jennyfer N Attending Unavailable Thomas, Parris M. Primary Care Unavailable Thomas, Parris M. Primary Care Unavailable Thomas, Parris MMichael Attending Unavailable Thomas, Parris M. Admitting Unavailable THOMAS, PARRIS HENSLEY Primary Care Unavailable Thomas DOParris Primary Care Provider Thomas Parris HENDRIX Unavailable [phone] Gaston Horton Admitting Unavailable Kirnus, Reid D Consulting Unavailable Gaston Horton Attending Unavailable Kirnus, Reid D Consulting Unavailable Kirnus, Reid D Consulting Unavailable NATALEE PEÑALOZA Attending Unavailable NATALEE PEÑALOZA Admitting Unavailable Charlotte Guerrero Unavailable THOMAS, PARRIS M Admitting Unavailable THOMAS, PARRIS M Attending Unavailable THOMAS, PARRIS M Referring Unavailable Yosvany Villeda Attending Unavailable Maisha MORFIN, Ru Man Attending Unavailable Maisha MORFIN, Ru Man Attending Unavailable Gielvinitis , Ru Man Attending Unavailable Giedmarielos MORFIN, Ru Man Attending Unavailable Maisha MORFIN, Ru Man Attending Unavailable PARRIS GUZMAN Primary Care Unavailable SLOMARA WHITESIDE Attending Unavailable SLOMARA WHITESIDE Referring Unavailable PARRIS GUZMAN Primary Care Unavailable SIPUS, KIM C Referring Unavailable SLOPNICK, MARA Attending Unavailable Allergies Allergy Classification Reported Allergen(s) Allergy Type Date of Onset Reaction(s) Facility (20 sources) Budesonide / formoterol Drug Allergy vomiting [place] Other (1 source) Budesonide Drug Allergy 09-04-2023 [facility] Repository (1 source) formoterol Drug Allergy 09-04-2023 [facility] Repository Medications Current Medications Medication Drug Class(es) Dates Sig (Normalized) Sig (Original) acetaminophen 325 mg / oxyCODONE hydrochloride 10 mg oral tablet (20 sources) Opioid Agonist Start: 12-12-2023 take 1 tablet by mouth every four to six hours Oxycodone-Acetami nophen (Percocet) 10-325 mg tablet Active 1 TAB PO EVERY 4-6 HOURS December 12, 2023 9:58am Start: 08-26-2023 oxyCODONE-acet aminophen (PERCOCET 10) 10-325 mg tablet 1 tablet. 0 08/26/2023 Active Start: 04-17-2023 take 1 tablet by chito th every four to six hours as needed Percocet 10-325 MG 1 tablet as needed Orally every 4-6 hrs for 30 days G89.4 palliative care prescribing Apr, Active Start: 04-11-2023 End: 12-12-2023 take 1 tablet by mouth every four hours for pain acetaminophen-oxycodone 325 mg-10 mg ora l tablet 1 tab(s), Oral, q4hr for pain, Refill(s) 0 Start Date: 08/26/23 Status: Ordered Start: 03-12-2023 take 1 tablet by chito [...] Percocet 5 mg-325 mg oral tablet 1 tab(s ), Oral, q6hr as needed for pain, Refill(s) 0 Start Date: 12/01/19 Status: Ordered Start: 01-06-2019 End: 04-11-2023 take 1 tablet by mouth three times daily Oxycodone-Acetaminophen Discontinued 1 T AB PO Three times daily November 08, 2021 12:00am April 11, 2023 8:09am 120 actuat albuterol 0.1 mg/actuat / ipratropium [...] day for 10 days Feb, Active ALPRAZolam 0.5 mg oral tablet (20 sources) Benzodiazepine Start: 12-05-2023 take 0.5 mg by mouth twice daily Alprazolam Active 0.5 MG PO Twice daily 20 December 05, 2023 3:24pm Start: 09-04-2022 take 1 tablet by [facility] three times daily as needed Xanax 0.25 MG 1 tab(s) Orally three times a day as needed for 30 days August, Active Start: 07-27-2009 End: 12-05-2023 take 1 tablet by mouth twice daily Alprazolam (Xanax) 0.25 mg tablet Discontinued 0.25 MG PO Twice daily 14 November 25, 2023 9:53am December 05, 2023 3:53pm ARIPiprazole 5 mg oral tablet (20 sources) Atypical Antipsychotic Start: 07-25-2017 End: 12-02-2023 take 1 tablet by mouth once daily Abilify 5 mg Tab 5 mg = 1 tab(s), Oral, Daily, Refills(s) 0 Start Date: 11/11/18 Status: Ordered baclofen suppository 10 mg (CPD) (2 sources) [...] directed. 60 Suppository 3 09/12/2023 05/09/2024 Active calcium phosphate dibas/vit D3 (VITAMIN D, WITH CALCIUM, ORAL) (2 sources) calcium phosphat e dibas/vit D3 (VITAMIN D, WITH CALCIUM, ORAL) Take by mouth. 0 Active Centrum MultiGummies (20 sources) Centrum MultiGum mies once daily Active Centrum MultiGum mies Active cephalexin 500 mg oral capsule (4 sources) Cephalosporin Antibacterial Start: 08-27-2023 take 1 capsule by mouth twice daily Keflex 500 mg Cap 500 mg = 1 cap(s), Oral, BID, # 7 cap(s), Refills(s) 0, Pharmacy: [facility], 157.5, cm, 08/26/23 4:01:00 EDT, Height/Length Dosing, 83, kg, 08/26/23 4:01:00 EDT, Weight Dosing Start Date: 08/27/23 Status: Ordered clopidogrel 75 mg oral tablet (20 sources) P2Y12 Platelet Inhibitor Start: 02-21-2012 End: 07-25-2023 take 1 tablet by mouth every other day Plavix 75 mg Tab 75 mg = 1 tab(s), Oral, Every other day, Refills(s) 0 Start Date: 05/31/15 Status: Ordered Combivent Respimat (10 sources) Start: 11-11-2018 take 1 puff(s) by [...] D2) (Vitamin D2) 50,000 unit Capsule Discontinued 83875 UNIT PO every week June 11, 2017 1:00am July 16, 2023 2:47pm takes on Saturday take 1 capsule by mo uth every week Vitamin D (Ergocalciferol) 13439 UNIT 1 capsule Orally once a week on Saturday for 90 day(s) Active fenofibrate 145 mg oral tablet (20 sources) Peroxisome Proliferator Receptor alpha Agonist Start: 10-20-2008 End: 07-25-2023 take 1 tablet by mouth once daily TriCor 145 mg oral tablet 145 mg = 1 tab(s), Oral, Daily, Refills(s) 0 Start Date: 07/07/11 Status: Ordered FLUoxetine 40 mg oral capsule (20 sources) Serotonin Reuptake Inhibitor Start: 01-11-2010 End: 10-08-2023 take 1 capsule by mouth once daily Prozac 40 mg Cap 40 mg = 1 cap(s), Oral, Daily, Refills(s) 0 Start Date: 11/11/18 Status: Ordered 30 actuat fluticasone furoate 0.1 mg/actuat / vilanterol 0.025 mg/actuat dry powder inhaler (20 sources) Corticosteroid, beta2-Adrenergic Agonist Start: 04-11-2023 End: 08-26-2023 Fluticasone Furoate-Vilantero l Active 1 INH INHALATION Daily 3 August 26, 2023 11:37am Start: 08-22-2022 take [...] 28 blister(s), Refill(s) 2, 30 dose unit, [facility], 157, cm, 08/15/22 11:44:00 EDT, Height/Length Dosing, 78, kg, 08/15/22 11:44:00 EDT, Weight Dosing Start Date: 08/18/22 Status: Ordered homatropine methylbromide 0.3 mg/ml / HYDROcodone bitartrate 1 mg/ml oral solution (3 sources) Opioid Agonist, Cholinergic Muscarinic Agonist Start: 11-13-2021 HYDROcodone Bit-Homatrop MBr 5-1.5 MG/5ML 5 mL as needed Orally every 6 hrs for 7 days Nov, Active morphine sulfate 15 mg extended release oral tablet (20 sources) Opioid Agonist Start: 12-12-2023 take 15 mg by mouth once daily at bedtime Morphine Active 15 MG PO Daily at bedtime December 12, 2023 9:58am Start: 06-04-2023 End: 12-12-2023 take 1 tablet by mouth every twelve hours morphine 15 mg/8 hr oral tablet, extended release 15 mg = 1 tab(s), Oral, q12hr, # 60 tab(s), Refills(s) 0 Start Date: 08/26/23 Status: Ordered Start: 05-07-2023 take 1 tablet by chito [...] benefit; palliative care prescribing now Jan, Active Multivit With Min-Folic Acid (Centrum Multigummies) 80 mcg Tablet,Chewable (12 sources) Start: 04-11-2023 take 1 tablet by mouth once daily Multivit With Min-Folic Acid (Centrum Multigummies) 80 mcg Tablet,Chewable Active 1 TAB PO Daily April 11, 2023 1:00am multivit-minerals/folic acid (CENTRUM ADULT 50 PLUS ORAL) (2 sources) multivit-mineral s/folic acid (CENTRUM ADULT 50 PLUS ORAL) oxygen [...] 2 liters via nasal cannula prn Active raloxifene hydrochloride 60 mg oral tablet (20 sources) Estrogen Agonist/Antagonist Start: 07-16-2023 End: 08-27-2023 take 1 tablet by mouth once daily Raloxifene Discontinued 0 .ROUTE .COMPLEX August 22, 2023 9:03am August 27, 2023 12:39pm TAKE 1 TABLET BY MOUTH DAILY Start: 07-07-2011 End: 11-29-2023 take 60 mg by mouth once daily Raloxifene Active 60 MG PO Daily November 29, 2023 11:50am Senna Leaves (4 sources) Start: 08-26-2023 Senna 8.6 mg o [...] 2023 3:08pm May 27, 2023 4:47pm sennosides, assisted 8.6 mg oral tablet (20 sources) Start: 01-21-2023 take 2 tablets by mo uth every twenty-four hours Senna Laxative 8.6 MG 2 tablets at bedtime as needed Orally Once a day for 30 days Jan, Active SENNA 8.6 mg tab simvastatin 40 mg oral tablet (20 sources) HMG-CoA Reductase Inhibitor Start: 07-07-2011 End: 08-16-2023 take 1 tablet by mouth once daily at bedtime simvastatin 40 mg Tab 40 mg = 1 tab(s), Oral, Once a day (at bedtime), # 30 tab(s), Refills(s) 0 Start Date: 07/07/11 Status: Ordered tiZANidine 2 mg oral tablet (20 sources) Central alpha-2 Adrenergic Agonist Start: 11-25-2023 take 1 mg by mouth twice daily Tizanidine Active 1 MG PO Twice daily November 25, 2023 10:46am Start: 08-26-2023 take 1 tablet by chito th every eight hours as needed for muscle spasms tiZANidine 2 mg Tab 2 mg = 1 tab(s), Oral, q8hr, PRN Spasm, Refills(s) 0 Start Date: 08/26/23 Status: Ordered Start: 07-12-2023 End: 11-25-2023 take 2 mg by mouth twice daily [...] Start: 07-15-2019 take 1 tablet by chito th every eight hours Zanaflex 4 MG 1 tablet as needed Orally Three times a day for 30 days Jul, Active traMADol hydrochloride 100 mg oral tablet (7 sources) Opioid Agonist Start: 08-03-2021 take 1 tablet by mouth every six hours traMADol HCl 100 MG 1 tablet as needed Orally four times a day for 30 days Jul, Active Vitamin D (Ergocalciferol) 49374 UNIT (16 sources) take 1 capsule by mouth every we ek Vitamin D (Ergocalciferol) 39815 UNIT 1 capsule Orally once a week [...] Four times daily November 08, 2021 12:00am Azithromycin (4 sources) Macrolide Antimicrobial Start: 09-23-2023 End: 11-15-2023 Azithromycin Discontinued 0 PO .COMPLEX 6 September 23, 2023 12:00am November 15, 2023 8:25am For 250 mg dose pack: take 500 mg today (day 1), then 250 mg for 4 days (days 2-5) PO Start: 09-23-2023 Azithromycin A ctive 0 PO .COMPLEX 6 September 23, 2023 12:00am For 250 mg dose pack: take 500 mg today (day 1), then 250 mg for 4 days (days 2-5) PO benzonatate 200 mg oral capsule (4 sources) Non-narcotic Antitussive Start: 09-30-2023 End: 12-05-2023 take 200 mg by mouth three times daily Benzonatate Discontinued 200 MG PO Three times daily 26 10September 30, 2023 12:00am December 05, 2023 3:02pm Start: 08-18-2022 End: 08-25-2022 take 2 capsules by mouth three times daily as needed for cough benzonatate 100 mg Cap 200 mg = 2 cap(s), Oral, TID, PRN Cough, X 7 day(s), # 42 cap(s), Refills(s) 0, Pharmacy: [facility], 157, cm, 08/15/22 11:44:00 EDT, Height/Length Dosing, 78, kg, 08/15/22 11:44:00 EDT, Weight Dosing Start Date: 08/18/22 Stop Date: 08/25/22 Status: Ordered 120 actuat budesonide 0.16 mg/actuat / formoterol [...] a day for 90 days Apr, Active 168 hr buprenorphine 0.005 mg/hr transdermal system (3 sources) Partial Opioid Agonist Start: 11-15-2023 End: 12-05-2023 apply 5 ug transdermal route every week Buprenorphine (Butrans) 5 mcg/hour patch weekly Discontinued 1 PATCH TRANSDERML Q7D November 15, 2023 12:00am December 05, 2023 3:02pm ciclopirox 0.0077 mg/mg topical gel (20 sources) Start: 01-24-2021 Ciclopirox 0.77 % 1 application Externally Once a day for 30 days Jan, Not-Taking Start: 01-24-2021 doxycycline hyclate 100 mg oral tablet (19 sources) Tetracycline-class Drug Start: 01-22-2023 End: 04-11-2023 take 100 mg by mouth twice daily Doxycycline Hyclate Discontinued 100 MG PO Twice daily 25 01January 22, 2023 12:00am April 11, 2023 8:12am take 1 capsule by mouth twice da mina Doxycycline Hyclate 100 MG 1 capsule Orally Twice a day for 10 days Active fluconazole 200 mg oral tablet (20 sources) Azole Antifungal Start: 08-20-2023 End: 09-09-2023 [...] 2023 11:23am hydroCHLOROthiazide 25 mg oral tablet (12 sources) Thiazide Diuretic Start: 04-11-2023 End: 08-12-2023 take 25 mg by mouth once daily Hydrochlorothiazide Discontinued 25 MG PO Daily April 11, 2023 1:00am August 12, 2023 9:19am Ketorolac (20 sources) Nonsteroidal Anti-inflammatory Drug, Cyclooxygenase Inhibitor Start: 10-03-2016 Toradol per 15 mg Sep, 2 cc metoclopramide 10 mg oral tablet (18 sources) Dopamine-2 Receptor Antagonist Start: 06-11-2017 End: 01-07-2019 take 1 tablet by mouth once daily Metoclopramide Hcl (Reglan) 10 mg Tablet Discontinued 10 MG PO Daily June 11, 2017 1:00am January 07, 2019 8:49am 24 hr mirabegron 25 mg extended release oral tablet (18 sources) beta3-Adrenergic Agonist Start: 12-25-2018 End: 11-08-2021 take 1 tablet by mouth once daily Mirabegron (Myrbetriq) 25 mg Tablet Extended Release 24 Hr Discontinued 25 MG PO Daily December 25, 2018 12:00am November 08, 2021 10:05am nystatin 922203 unt/ml oral suspension (20 sources) Polyene Antifungal Start: 06-20-2023 End: 08-12-2023 take 1 mL by mouth four times daily Nystatin Discontinued 4 ML PO Four times daily June 20, 2023 12:00am August 12, 2023 9:21am Start: 08-21-2022 take 4 mL by mouth f our times daily Nystatin 221089 UNIT/ML 4 ml Mouth/Throat Four times a day for 10 days August, Active Start: 08-21-2022 take 4 mL by mouth f our times daily Nystatin 694576 UNIT/ML 4 ml Mouth/Throat Four times a day for 10 days August, Active omeprazole 20 mg delayed release oral tablet (20 sources) Proton Pump Inhibitor Start: 06-11-2017 End: 06-20-2023 take 20 mg by mouth once daily Omeprazole Discontinued 20 MG PO Daily June 11, 2017 1:00am June 20, 2023 10:11am Start: 09-20-2008 take 1 capsule by mo [facility] once daily omeprazole 20 mg Cap-EC 20 mg = 1 cap(s), Oral, Daily, # 30 cap(s), Refills(s) 0 Start Date: 07/07/11 Status: Ordered oxybutynin chloride 2.5 mg oral tablet (20 sources) Cholinergic Muscarinic Antagonist Start: 09-11-2023 End: 09-12-2023 take 1 tablet by mouth three times daily oxybutynin (DITROPAN) 2.5 mg tablet Take 1 tablet (2.5 mg) by mouth three times a day. 30 tablet 0 09/11/2023 09/12/2023 Discontinued Start: 12-01-2019 [facility] once daily as needed oxybutynin 5 mg Tab 5 mg = 1 tab(s), Oral, Daily, PRN for urinary discomfort, Refills(s) 0 Start Date: 12/01/19 Status: Ordered take 1 tablet by [facility] every twenty-four hours Oxybutynin Chloride ER 15 MG 1 tablet Orally Once a day Active predniSONE 20 mg oral tablet (20 sources) Start: 09-23-2023 End: 12-05-2023 Prednisone Discontinued 0 PO Daily 24 12September 23, 2023 12:00am December 05, 2023 3:03pm 3 tabs x 3 days, 2 tabs x 3 days, 1 tab x 3 days Start: 08-12-2023 End: 09-04-2023 Prednisone Discontinued 0 PO daily 24 August 12, 2023 12:00am September 04, 2023 8:51am [...] days., # 18 tab(s), Refills(s) 0, Pharmacy: [facility], 158, cm, 11/25/22 14:58:00 EDT, Height/Length Dosing, 82.6, kg, 11/25/22 14... Start Date: 11/29/22 Status: Ordered Start: 08-18-2022 predniSONE 10 mg Tab = 1 -, Oral, As Directed, Take 3 tabs by mouth daily x3 days, then 2 tabs daily x3 days, then 1 tab daily x3 days., # 18 tab(s), Refills(s) 0, Pharmacy: [facility], 157, cm, 08/15/22 11:44:00 EDT, Height/Length Dosing, 78, kg, 08/15/22 11:4... Start Date: 08/18/22 Status: Ordered Start: 11-13-2021 take 3 tablets by mo uth every twenty-four hours predniSONE 20 MG 3 tablet with food Orally Once a day for 5 days Nov, Active pregabalin 75 mg oral capsule (18 sources) Start: 12-25-2018 End: 11-08-2021 take 1 capsule by mouth once daily Pregabalin (Lyrica) 75 mg Capsule Discontinued 1 CAP PO Daily December 25, 2018 12:00am November 08, 2021 10:07am Sennosides (Senna) 8.6 mg Capsule (12 sources) Start: 04-11-2023 End: 05-27-2023 take 1 capsule by mouth once daily at bedtime Sennosides (Senna) 8.6 mg Capsule Discontinued 8.6 MG PO Daily at bedtime April 11, 2023 1:00am May 27, 2023 3:09pm tolterodine tartrate 2 mg oral tablet (18 sources) Cholinergic Muscarinic Antagonist Start: 01-06-2019 End: 01-08-2019 take 1 tablet by mouth twice daily Tolterodine Discontinued 1 TAB PO Twice daily January 06, 2019 12:00am January 08, 2019 12:51pm Vitamin D 50,000 intl units (1.25 mg) oral capsule (10 sources) Start: 05-31-2015 take 1 capsule by mouth once Vitamin D 50,000 intl units (1.25 mg) oral capsule 50,000 International_Unit = 1 cap(s), Oral, Saturday, # 4 cap(s), Refills(s) 0 Start Date: 05/31/15 Status: Ordered Start: 05-31-2015 take 1 capsule by mo [facility] every week Vitamin D 50,000 intl units (1.25 mg) oral capsule 50,000 International_Unit = 1 cap(s), Oral, , # 4 cap(s), Refills(s) 0 Start Date: 05/31/15 Status: Ordered zolpidem tartrate 5 mg oral tablet (20 sources) gamma-Aminobutyric Acid-ergic Agonist Start: 06-11-2017 End: 04-11-2023 take 5 mg by mouth once daily at bedtime Zolpidem Discontinued 5 MG PO Daily at bedtime November 08, 2021 12:00am November 08, 2021 10:12am Start: 05-31-2015 take 1 tablet by [facility] every twenty-four hours Ambien 10 MG 1 tablet at bedtime as needed Orally Once a day for 90 days Jan, Not-Taking Problems Active Problems Problem Classification Problem Date Documented Da te Episodic/Chronic Abdominal pain (2 sources) Pelvic and perineal pain; Translations: [Pain in female pelvis] Onset: 4 09-12-2023 Episodic Acute cerebrovascular disease (11 sources) Cerebrovascular accident; Translations: [Cerebral infarction] Onset: [...] 1 Resolved: 2 Chronic E Codes: Fall (15 sources) Fall on same level from slipping, [...] source) Encounter for immunization Episodic Mood disorders (10 sources) Depressive disorder 05-31-2015 Chronic Mycoses (20 [...] Encounter for palliative care Episodic Other aftercare (14 sources) Wound finding; Translations: [Encounter for other specified aftercare] 01-22-2023 Episodic Other and unspecified benign neoplasm (18 sources) History of polyp of colon; Translations: [Personal history of colonic polyps] 06-14-2017 Episodic Other circulatory disease (2 sources) History of transient ischemic attack; Translations: [Personal history of transient ischemic attack (TIA), and cerebral infarction without residual deficits] Onset: 3 Episodic Other circulatory disease (6 sources) History of cerebrovascular accident 11-25-2022 Episodic Other diseases of bladder and urethra (10 sources) 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 Episodic Other [...] chronic pain Chronic Other nervous system disorders (12 sources) Chronic pain syndrome; Translations: [Chronic pain syndrome] 05-23-2023 Chronic Other nervous system disorders (12 sources) Chronic pain syndrome; Translations: [Chronic pain [...] Chronic Other nutritional; endocrine; and metabolic disorders (6 sources) Obesity caused by energy imbalance 11-25-2022 Chronic Other screening for suspected conditions (not mental disorders or infectious disease) (2 sources) Encounter for screening mammogram for malignant neoplasm of breast; Translations: [Encounter for screening for other disorder] Onset: 4 Episodic Other upper respiratory disease (1 source) Unspecified voice and resonance disorder; Translations: [Other voice and resonance disorders] 12-05-2023 Episodic Peripheral and visceral atherosclerosis (20 sources) [...] 1 Resolved: 2 Episodic Residual codes; unclassified (16 sources) History of urinary bladder neck procedure; Translations: [Other specified postprocedural states] 12-28-2021 Episodic Residual codes; unclassified (16 sources) History of vaginoplasty; Translations: [Other specified postprocedural states] 12-28-2021 Episodic Residual codes; unclassified (2 sources) Patient encounter status; Translations: [Other specified health status] Onset: 3 Episodic Respiratory failure; insufficiency; arrest (adult) (20 sources) Chronic respiratory failure; Translations: [Chronic respiratory failure, unspecified whether with hypoxia or hypercapnia] Onset: 3 Chronic Respiratory failure; insufficiency; arrest (adult) (1 source) Acute respiratory failure; Translations: [Acute respiratory failure with hypoxia] Onset: 3 Episodic Screening and history of mental health and substance abuse codes (10 sources) Ex-smoker 11-11-2018 Episodic Skin and subcutaneous tissue infections (14 sources) Cellulitis; Translations: [Cellulitis, unspecified] 01-22-2023 Episodic [...] left knee] Onset: 01-22-2023 Episodic Substance-related disorders (10 sources) Smoker Resolved: 05-31-2015 11-11-2018 Chronic Comment on above: Added secondary to d ocumentation in Social History. Unclassified (2 sources) Acute cough R05.1 Onset: 11-13-2021 Resolved: 12-01-2021 Unclassified (16 sources) Herniated urinary bladder; Translations: [Cystocele] 12-27-2021 Results Test Name Value Interpretation Reference Range [facility] Visit ([facility] ) ----- NICOLE LOMELI ([id number]) 1950 F DEF Date Time Provider Department 01/09/24 2:30 PM MARA MONROY During your visit today, we recorded the following information about you: Temperature 98.2 degrees Russel Davison MA 01/09/2024 2:13 PM Signed After your Cystoscopy and Botox injections with Dr. Monroy You have undergone a cystoscopy and botox injections. Your doctor has inserted a telescope into your urinary bladder through your urethra to view the inside of your bladder and inject botox. WHAT TO EXPECT: Possible burning during urination and/or blood-tinged urine. WHAT TO DO: Resume normal activity and medications. Drink 6-8 glasses of fluid each day for 3 days to help flush your urinary system. MEDICATIONS: You were given a preventative antibiotic prior to the procedure. WHEN TO CALL THE DOCTOR: IF you have a fever over 100 degrees Fahrenheit IF you are unable to urinate IF blood clots form in your urine If your urine becomes very bloody and does not clear with drinking extra fluids. Please call the [facility] office at [phone] Saturday-Saturday 8 am - 5 pm with any questions you may have and ask for the Urology nurses. If you call after 5 PM or on the weekends, please call [phone] Russel Davison MA 01/09/2024 3:13 PM Signed PRE BOTOX NURSE ASSESSMENT Patient ID with two(2) identifiers verified by: Russel Davison MA Is the patient Jehovah Witness: No Procedure/Indication: Cystoscopy with Botox Injections January 09, 2024 Time In: 2:19 p;m Allergies reviewed and updated. Yes Pre-Procedure Vital Signs: Temp 36.8 ?C (98.2 ?F) (Temporal) SpO2 99% Joint replacement: No Heart valve replacement: No Back Office UA obtained: yes Pre-Procedure Antibiotics: see MAR Current pain intensity is 0 on a 0-10 pain scale.. Patient Prep: Betadine Scrub to perineum and placement of Sterile Drape. COMPLETED Anesthetic Given: See MAR Procedure Indicated: Botox Injection and Cystoscopy Physician:MD Russel Escobedo MA POST PROCEDURE NURSE ASSESSMENT Procedure/Indication: Cystoscopy with Botox Injections Lot #: [id number] Exp Date: [facility]: [id number] Director Of Land Acquisition: abbvie Instruction sheet given and reviewed: Yes Patient verbalizes understanding: Yes Current pain intensity is 0 on a 0-10 pain scale.. Russel Davison MA PATIENT EDUCATION THE FOLLOWING WAS EVALUATED Motivation To Learn: Interested Family/Significant Other Support: Unable to assess - Family not present Cognitive Ability: Alert/Oriented Method of Instruction: Written instruction - handouts Verbal instruction The Following Influencing Factors Were Barriers To This Education Session: None The Following Physical Limitations Were Barriers To This Education Session: None Instruction Provided To: Patient Chiller Technician Present: not applicable Discipline: Nursing Learning Topic: Survival Skills: Complication Prevention Safety Precautions Patient Evaluation: Verbalizes understanding: Yes Supplemental Material Given: Written Material Instructed By Russel Davison MA In Department Urology . Russel Davison MA 01/09/2024 3:42 PM Signed UNIVERSAL PROTOCOL / SAFETY CHECKLIST Procedure to be Performed: cysto with Botox Sign In: A Moment of CARE was completed. Personnel directly involved with the procedure wore the appropriate PPE (Personal Protective Equipment). No special equipment needed. Patient/Surrogate Stated/Verified: PATIENT VERIFIED(optional for EMERGENT procedures): Patient name, Date of , Relevant allergies, and The intended procedure Time Out Communication: Intended patient and procedure match the source documents. Consent documented and matches the intended procedure. Relevant labs, photos, and/or imaging studies have been reviewed. No correct side/site applicable for marking and visibility. Medications required for procedure verified. Fire risk assessed and interventions discussed. No implant(s) inserted. Sign Out: SIGN OUT (optional for EMERGENT procedures): All specimen containers correctly labeled. All instruments, equipment, possible retained foreign bodies accounted for. Post-procedure follow-up management communicated and Plan of Care Visit completed when applicable. EMILEE Thompson MD Slopnick, Emily, MD 01/09/2024 3:42 PM Signed Cystoscopy Primary Indication: Urge Incontinence Review of Systems is unchanged. Risks, benefits, alternatives and personnel discussed with patient who consents to proceed.The patient understands that the Botox is use of the medication in the bladder and the risks of injection were discussed with the patient. The patient understands, agrees and wishes to proceed. A presurgical checklist was performed. The patient was prepped and draped in sterile fashi (more content not included)... Normal [facility] Coding Summary.on 10-01-2023 Coding Summary. BFPXWhzb47JWh8qHw+PG hlYWQ +BJ3YBFDuG99zvAIriS2iC0QM TElOSywgQVBQTElOSyIgbmFtZ J3tfROrHPOe IC8+TV1rRIOcGsmxjJQld0Z5n MB7N95hiw7nOCfxpKO1RXTuYy Yrnxloc4cjtAl1KUrvTknsMxM t OLBjcS15JVE2bF76Cx90sENou PUwh7mgyVz0DyBuICFeSUI7xE aaCRpzx8JtNHXkP90scOXqc2O 6 SHYtrIgthZKcBnWjzTS7pV0uB Sastzghc9cjbzgyZej4ix01qI Zrq2E2iGU6Q0IrroS5ASMzzIE g PsspoLHMyZ2spidxy0kgzrriZ kQkRFYyEPh0WXv5XFOrgLjbTr AyZD66BLT9MRGlbsTzZ2AgSFJ s yYdoLsX8q9W3Wl1IE4VPZvnrY 1VNTUFSWTwvdGQ+AJ46ig86C7 OeCludCnc4GUWmUXO3iGC0aP1 n VAJnNKclz2S4cTU1O0JovbIov m3bp1ojUDSsSHvyD01szCYkn2 M0ZFZkrUN1NXCgqXkiBtUalX5 3 Oyc+ZLMsbGmom9YtIojtb9mwo 9kgdIf1UtuoDBZtzcFbeKmaBX J4w8CgGt5gDDZcuIE5gYC6kM6 i ZySoPhO6AGjgH348GrTgmCLjJ ajsT29kT6AcvCQ+HMFfXcn9CL QjwDwuBR2yP8NfNFSprmoluHO m zXixZZ8kKLIywuvgMXCqrE6eB LCtB2y0CtEbZoS9MSmxS9LmNO PrbyjeAu76gS5zSpMoNuN7KJg u J9GccrE7PCAlgPIpQVxsPXP0Y 96bo0K6VAEuYNGmGWN8rCJ5nC 1hbGlnbjogbGVmdDsgdmVydGl j YJqrOUggE111ZGDjpUrvTpFvL GluZyBEYXRlOiAgMDYvMjUvMj AyNDwvdGQ+HWWmPOO4pEvaLPH n nYNgOAabYo9dzFbuhPduIL4xZ QLhqiioLCQfjA6rUPFuiWQnxM nuIK4uRPXsoictk028NoQjEBT 0 KQGneEDkQ0TlzI7zIgBuWMHtK TLlH1OneBQyAWmdA966JEgzXx T8VULxteXlM5LkYDFevTwrZhM 0 d5V6Zx1Xh9HzhiafR4XstQTtK gEdZjfeXCy9G1LyYugtgGZ+PC 46AVFyTY64HJe9NBO9pQqiSPf i YEHuR8WetC8gNbGfPAJdRBGnI yc+PHRhYmxlIHdpZHRoPScxMD TlIdHraMgsWU3tGd7nQKJpCTK v iNxpwCKlCaTza7zyIVMbVUqkA Y5ntTskN6GfcVZ8BLHrj1e3Rp 36R61fS9PttPM+CZMngHA3pLG 0 dK3nEuKzFhD1QQqpU240EtJcm PRxVazol3mkp8nuhUt0NjA0NI NwbuYndZzmQXA2i1LxGb64F72 s IHdpZHRoPSIxNSUiIHZhbGlnb s2ffO6sIa1+PWBvaBH2eCF3uB 5aDqGtNaT9UMzzM209ZuJcbUU v Zzcuw5oik9ofhGd2ZgTeQUWoo dAfqJbpHDE3l6XyBq30V3MmqB jmk8HcZkb7ez23eAXpv4I4cTE 9 L8GzGYYrrfykvGBvtLizVF0nO DDqzbqbLYZaaK3nXMAfH8s0Bg LaMfK1QVutF4HtihG2FIXitJR g RTGuaBHQnA1dijrkm5efflejI qKeLPIoITc8QUr4OPZpvSalRl ZxZZX6PgW0NLC7bWCswO2kjAe n aeqolJ5fMxf+GZJ2ePDnzAVAL D1qNxmigYF+YYMeMMM0qXfrDR jwAPHqiU6tHVHcL8s4MdQfDvL 1 INhvI1JrdqR0ZUTtcRBvFRWpq TFNtW3sjprzs5njhcrjZsLeOT QcLFn0JTz4QIEgzLhtGxNmYOP 0 MaC2LME5yKYpkL0onIvzjfihn G9wOyc+PgutbSeeCJL3NZr4Q4 DlGsl6NBHjsOlmGZ4dsLLhGYo u Vw2acEjhhLmkYJ2pRAZivkaef 969DpQoc1ieTMXioFKoXNjlWI V0N59md2V6HVWrHHQlVVH5yUL 4 uY4scUjyufrirLOzeMnjomUpw QdpVEtuZZytA926PIMhhNlcKy VaCSi0A5YkEpu7GKDjuRtrNZ0 n yUEmFRqaCs1jpNvrtPzuXX7gN QZkowmsv948CaXhv6tuEEQkzL RpXLbxDQE3R88cd6A9SWTdJGV w WVY3fPP6cA7ubHmrcppdhKXtq DosbzHbzYxzKLjxHLiuE480BX DdoYgxZmEitTb0T9DdVrv1RCV z jFvnHE6cmAUmOZtqMz2qgQrwy IxxCS7kSAQzwzqnx698QdXdb9 mrDGSwaAQqMVseSFA7B05vk8N 6 VIPdYADcSPA4mII4wU7zfUcth jogbGVmdDsgdmVydGljYWwtYW diC118PRQvuUvfSyQvfAkeitK g VUdcETl6N9QeMyqueXO+PC90Y RDdIA19uEJzrVYam9nosTk4Ma NiBGYaFIJ7aEwvYRhtt7MgQRD t P53fgOQne0G5CMKorCbfmHAaP dNcgHH1lW3hNYtgessuz4lyin lnKfbgl3bsga05lM40N31fZOi p XWLiKCRpCHLaENZsiXscgy4mz G9wIi8+KKXccMJ6mMQ8yP5rVW TiUnH1MJyrD582UwFgpIFgHcq j r7swb3shoGb3PxY9TFRmrtJiu IwjGKU3c1WfNu68Z06fVJrfRV QbZXMuIQLeXPUtwIhxlw9gdW6 w Ii8+QNTzwTG0wGC8lZ1lWbLbC tP4FZjqJ629SkEzzYVyZypxT4 9lR3VxpQC+ZBNiYbw0HIYhdIq s IH4ytKYxHMvpRw9gFOK2KlTcR zHvKPqvI5XuETAmlzizcjlueQ P3QDXgGQCcuG46Vn9gzLilUCR w nOTYxX5upvkoa8kzmcspKwWfE EDuJZm9EDk5NHSjqQnpQdSlMJ K2GmG5LBK4nWNppO3xmKhboac g gN0uB1YuNQSbztkiKg11gV3fY aSwZpJ2LKbmOgk+E92LTSwTZG OlQEKSV7BIHYQqYRmvoED+PHR k XJS1mXckKTvdHZUhrP4yXZRbG 7s8QjCvPrI1UKvuI1QkYSDffn ilUc79sE2dYxOaThI6LEvgD3H v dhQ0OCQkhIWiNNaeQSC2J65ep 8M1GFZsOTSqDIT1vTC2fL2muY lnbjogbGVmdDsgdmVydGljYWw t WIxvP154MZAnfWjeXwQ5RsG8U kS3TFA3B0MaZuh7BFVbwBcqCY 3qaUJrKQxoGb7liQzfwYwlVO5 w EBPhdadiEFBcrD6cMPHctWBgp QebAI1gCSQzgtued113MhVrOC D1IGZlbRIsF5KuoA2eAtVmNND w LLUrY9JsvNYuOLvmP692MQktE bF6TREoojOjF3WcXUIydNgrNi H9f9G4Nt23VcDYNDVayqoxxXX + QUHfNZN1pPrfATkwPAZbeT5jA VKeB1x0UqBpZwA8DFhjO6PhPX JdkwyhIl21cU0bDkNzZmL7DOx u L4SfqrH9ODUbaIRzHQpbUQI9Z 95ai2V5DECxZRVqVLW5yCU5jT 1hbGlnbjogbGVmdDsgdmVydGl j MNpyBLzgS312RPOakPmaHlTys WFsZTwvdGQ+NDRqTDP7nXynVK ceZSLhnP4pTKTuM7g0ZzTpNoA 1 FUanL9VxLMHcipepEw97gW2oQ yBkBmA6SSqmU5NzzhG5WIKcuO VkUMtoWRW6X91co4X0DMZlCBA w GQB2zAM4bD9ynUuicdfanFCjk HzuwuDipFbwOTeiHEjiL372LW ZkoQuiTb53lRPkgWogdqI9S5Q k PjwvdHI+QP30QLEnYF21vWBtx QJxb4wzlTg6AcXdSSQmKZM0cC zzJZnxh9UbCMPtS26azNRfp7Y 6 FUCqpDyhbLYeFfJhcPH5rJ2pP Rygksqin9ivupbyHqwis6hesr 90uM03R82eUZiiZZBfPNRhQKY i HYUmrFxbbi0mnY8pPb4+PGNvb JT2aBJ4rW4gPdPaLhL7SHgwC7 99HgBoxKGlMheyr2bem6tsyFd 9 HwCoAILnjnDapEvaVVS2s7IdX d20J82hBNsaMSZdZIEgWVZsIE UekAivma6miL8wDh3+QT8eu4o n zh67kX87aWE+XMSaJDY0iFkyL JykQKIhaT8vJEkdKyO5BAFpJg ZpxJ31fBVtYFsvVm5csJxawWe g ZV4lFEYzmkcec661IwWqu5bhQ IFjeAVxXWueWWD9P39dx7P7YG BiYGXwVYP9iHI9rI8thRutwmw g bGVmdDsgdmVydGljYWwtYWxpZ 247FSEnhZtcEvCbvBMyK4oety KGXR0qVhvzuUC+TSLwQNJ6tEu l CXtpCGUpkQ9cPIIwI5p5TcAcZ mA9OMzyN6MwftM2PMTocSQaDQ AjoVPMzA2dqkntp0dhqvcjGdM w PLIeBAe9PLx4HBGnbQqhXcToV WP9MuW4BHZ2uDZfcU3mbJfcbh nsuK1eCwp+RklOOjwvdGQ+PHR k MAH7rBmdFRkkAMUmcH1oLHMhP 4b0DsAtOnH2FAsrI0HxtdV5KD VizOQqKZRppCJVbM0esuerp8j v enrkPrVyISQtFXw9LKl8UXSfc RkdLuNhYAY7DjV0XVQ5yMEclS 7elKrdwllfyI5uQum+TVJOOjw v dGQ+DOUyXDB5lCbvOZcmRHWbj T2lFTWdZ0m9BzZiKnZ8MCosN5 CpylF2ZFDspJMgABCxxBLEgZ9 l hwmia7chaanbYaHwCZSwPOv5E Hx2EVBoeFioHeOlJIQ0SuA2LB K6bEGmdS9fcLppupgjoJ5nYrs + AXL2XLB4QP95QG39O8AuLkpvu GFibGU+PHRhYmxlIHdpZHRoPS kePGYjChQctCewAM7lXt1lFCN y LWNvbGxhcHNlO (more content not included)... Normal [facility] XR Chest 2 Viewson XR Chest 2 [...] Signature): 09/25/2023 2:30 pm Signed by: Duke Castellon MD Transcribed by: BEATRICE Technologist: CARLOS Technical Comments Radiation Dose: Ka,r in mGy = na DAP = na Normal [facility] Consent for Treatmenton 09-06 Consent for Treatment [id number] [facility] Physician Orderon 09-23-2023 Physician Order [id number]#[id number] [facility] CNPNon 09-13-2023 CNPN Telephone (UROLAV) ----- NICOLE LOMELI ([id number]) 1950 F DEF Date Time Provider Department [...] calling: self Call patient at: on cell [phone] (home) [phone] (cell) Was an appointment scheduled: No Closing statement: Results or non-symptom based questions: Thank you for calling [facility], your call will be returned within the next business day. Arlet Holland LPN 09/13/2023 1:44 PM Signed Notified per Dr. Slopnick to hold plavix 5 days before She will call prescribing Dr. Donal roberts sure they are aware and okay with this Allergies As of Date: 09/13/2023 (No Known Allergies) Date Reviewed: 09/12/2023 Reviewed by: Mara Monroy MD - Fully Assessed Reason for Visit: Patient Question [1477] Prescriptions as of 09/13/2023 - simvastatin (ZOCOR) [...] Encounter Status:Closed by ARLET AGUAYO on 09/13/23 [facility] Cecilio 09-12-2023 CNOV Office Visit (UROLAV ) ----- NICOLE LOMELI ([id number]) 1950 F DEF Date Time Provider Department 09/12/23 4:00 PM MARA MONROY UROLAV During your visit today, we recorded the following information about you: Yaneli He RN 09/12/2023 4:49 PM Signed PVR = 0 cc/ml via bladder scan Mara Monroy MD 09/12/2023 4:49 PM Signed [facility] NEW PATIENT CLINIC NOTE SERVICE DATE: 09/12/2023 SERVICE TIME: 2:11 PM NAME: Nicole Lomeli REFERRED BY: Consultation requested by Dr. Kim Harris [id number] [phone] for an opinion regarding pelvic organ prolapse. [...] Lifestyle modifi (more content not included)... Normal [facility] CBC W Auto Differential pane l (Bld)on 09-11-2023 Basophils (Bld) [#/Vol] 10*3/uL Normal <0.11 [facility] Comment on above: Order Comment: Speci men Type: BLOOD SPECIMEN Ordering Facility: [facility] Address: [address] [place] [address] Performed By: #### 5 7021-8 #### [facility] CLIA [id number] [place] [address] [place] Basophils/100 WBC (Bld) 0.1 % Normal [facility] Comment on above: Order Comment: Speci men Type: BLOOD SPECIMEN Ordering Facility: [facility] Address: [address] [place] [address] Performed By: #### 5 7021-8 #### [facility] [place] [id number] [address] [place] [address] [place] Differential cell count method Nom (Bld) Auto Normal [facility] Comment on above: Order Comment: Speci men Type: BLOOD SPECIMEN Ordering Facility: [facility] Address: [address] [place] [address] Performed By: #### 5 7021-8 #### [facility] CLIA [id number] [address] [place] [address] [place] Eosinophils (Bld) [#/Vol] 0.27 10*3/uL Normal <0.46 [facility] Comment on above: Order Comment: Speci men Type: BLOOD SPECIMEN Ordering Facility: [facility] Address: [address] [place] [address] Performed By: #### 5 7021-8 #### [facility] CLIA [id number] [address] [place] [address] [place] Eosinophils/100 WBC (Bld) 3.5 % Normal [facility] Comment on above: Order Comment: Speci men Type: BLOOD SPECIMEN Ordering Facility: [facility] Address: [address] [place] [address] Performed By: #### 5 7021-8 #### [facility] IA [id number] [address] [place] [address] [place] Erythrocyte distribution width (RBC) [Ratio] 13.2 % Normal 11.5-15.0 [facility] Comment on above: Order Comment: Speci men Type: BLOOD SPECIMEN Ordering Facility: [facility] Address: [address] [place] [address] Performed By: #### 5 7021-8 #### [facility] IA [id number] [place] [address] [place] Hematocrit (Bld) [Volume fraction] 35.5 % Low 36.0-46.0 [facility] Comment on above: Order Comment: Speci men Type: BLOOD SPECIMEN Ordering Facility: [facility] Address: [address] [place] [address] Performed By: #### 5 7021-8 #### [facility] IA [id number] [address] [place] [address] [place] Hemoglobin (Bld) [Mass/Vol] 11.3 g/dL Low 11.5-15.5 [facility] Comment on above: Order Comment: Speci men Type: BLOOD SPECIMEN Ordering Facility: [facility] Address: [address] [place] [address] Performed By: #### 5 7021-8 #### [facility] IA [id number] [place] [address] [place] Immature granulocytes (Bld) [#/Vol] 0.03 10*3/uL Normal <0.10 [facility] Comment on above: Order Comment: Speci men Type: BLOOD SPECIMEN Ordering Facility: [facility] Address: [address] [place] [address] Performed By: #### 5 7021-8 #### [facility] IA [id number] [address] [place] [address] [place] Immature granulocytes/100 WBC (Bld) 0.4 % Normal [facility] Comment on above: Order Comment: Speci men Type: BLOOD SPECIMEN Ordering Facility: [facility] Address: [address] [place] [address] Performed By: #### 5 7021-8 #### [facility] IA [id number] [address] [place] [address] [place] Lymphocytes (Bld) [#/Vol] 2.42 10*3/uL Normal 1.00-4.00 [facility] Comment on above: Order Comment: Speci men Type: BLOOD SPECIMEN Ordering Facility: [facility] Address: [address] [place] [address] Performed By: #### 5 7021-8 #### [facility] IA [id number] [address] [place] [address] [place] Lymphocytes/100 WBC (Bld) 31.6 % Normal [facility] Comment on above: Order Comment: Speci men Type: BLOOD SPECIMEN Ordering Facility: [facility] Address: [address] [place] [address] Performed By: #### 5 7021-8 #### [facility] IA [id number] [address] [place] [address] [place] MCH (RBC) [Entitic mass] 30.9 pg Normal 26.0-34.0 [facility] Comment on above: Order Comment: Speci men Type: BLOOD SPECIMEN Ordering Facility: [facility] Address: [address] [place] [address] Performed By: #### 5 7021-8 #### [facility] IA [id number] [address] [place] [address] [place] MCHC (RBC) [Mass/Vol] 31.8 g/dL Normal 30.5-36.0 [facility] Comment on above: Order Comment: Speci men Type: BLOOD SPECIMEN Ordering Facility: [facility] Address: [address] [place] [address] Performed By: #### 5 7021-8 #### [facility] IA [id number] [address] [place] [address] [place] MCV (RBC) [Entitic vol] 97.0 fL Normal 80.0-100.0 [facility] Comment on above: Order Comment: Speci men Type: BLOOD SPECIMEN Ordering Facility: [facility] Address: [address] [place] [address] Performed By: #### 5 7021-8 #### [facility] IA [id number] [address] [place] [address] [place] Monocytes (Bld) [#/Vol] 0.64 10*3/uL Normal <0.87 [facility] Comment on above: Order Comment: Speci men Type: BLOOD SPECIMEN Ordering Facility: [facility] Address: [address] [place] [address] Performed By: #### 5 7021-8 #### [facility] IA [id number] [address] [place] Monocytes/100 WBC (Bld) 8.4 % Normal [facility] Comment on above: Order Comment: Speci men Type: BLOOD SPECIMEN Ordering Facility: [facility] Address: [address] [place] [address] Performed By: #### 5 7021-8 #### [facility] IA [id number] [address] [place] [address] [place] Neutrophils (Bld) [#/Vol] 4.29 10*3/uL Normal 1.45-7.50 [facility] Comment on above: Order Comment: Speci men Type: BLOOD SPECIMEN Ordering Facility: [facility] Address: [address] [place] [address] Performed By: #### 5 7021-8 #### [facility] IA [id number] [address] [place], [place] [address] [place] [address] [place] Neutrophils/100 WBC (Bld) 56.0 % Normal [facility] Comment on above: Order Comment: Speci men Type: BLOOD SPECIMEN Ordering Facility: [facility] Address: [address] [place] [address] Performed By: #### 5 7021-8 #### [facility] IA [id number] [address] [place] [address] [place] Nucleated RBC (Bld) [#/Vol] 10*3/uL Normal <0.01 [facility] Comment on above: Order Comment: Speci men Type: BLOOD SPECIMEN Ordering Facility: [facility] Address: [address] [place] [address] Performed By: #### 5 7021-8 #### [facility] IA [id number] [address] [place] Nucleated RBC/100 WBC (Bld) [Ratio] 0.0 /100 WBC Normal [facility] Comment on above: Order Comment: Speci men Type: BLOOD SPECIMEN Ordering Facility: [facility] Address: [address] [place] [address] Performed By: #### 5 7021-8 #### [facility] IA [id number] [address] [place] [address] [place] Platelet mean volume (Bld) [Entitic vol] 9.8 fL Normal 9.0-12.7 [facility] Comment on above: Order Comment: Speci men Type: BLOOD SPECIMEN Ordering Facility: [facility] Address: [address] [place] [address] Performed By: #### 5 7021-8 #### [facility] IA [id number] [address] [place] [address] [place] Platelets (Bld) [#/Vol] 287 10*3/uL Normal 150-400 [facility] Comment on above: Order Comment: Speci men Type: BLOOD SPECIMEN Ordering Facility: [facility] Address: [address] [place] [address] Performed By: #### 5 7021-8 #### [facility] CLIA [id number] [facility] [place] [address] [place] RBC (Bld) [#/Vol] 3.66 10*6/uL Low 3.90-5.20 [facility] Comment on above: Order Comment: Speci men Type: BLOOD SPECIMEN Ordering Facility: [facility] Address: [address] [place] [address] Performed By: #### 5 7021-8 #### [facility] CLIA [id number] [address] [place] [address] [facility] [place] WBC (Bld) [#/Vol] 7.66 10*3/uL Normal 3.70-11.00 [facility] Comment on above: Order Comment: Speci men Type: BLOOD SPECIMEN Ordering Facility: [facility] Address: [address] [place] [address] Performed By: #### 5 7021-8 #### [facility] CLIA [id number] [facility]. [address] [place] CT ABD/PEL W IVCONon 024 CT ABD/PEL W IVCON * * *Final Report* * * DATE OF EXAM: Sep 11 2023 4:52PM [facility] 0530 - CT ABD/PEL W [...] evidence of significant intra-abdominal or intrapelvic pathology. 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: YOLANDA Transcribe Date/Time: Sep 11 2023 5:15P Dictated by : UJSTICE EMERSON MD This examination was interpreted and the report reviewed and electronically signed by: JUSTICE EMERSON MD on Sep 11 2023 5:19PM EST [id number] Normal [facility] Comprehensive metabolic 2000 panelon 09-11-2023 Albumin [Mass/Vol] 3.9 g/dL Normal 3.9-4.9 [facility] Comment on above: Order Comment: Speci men Type: BLOOD SPECIMEN Ordering Facility: [facility] Address: [address] [place] [address] Performed By: #### 2 4323-8 #### [facility] CLIA [id number] [facility] [place] [address] [place] ALP [Catalytic activity/Vol] 109 U/L Normal 34-123 [facility] Comment on above: Order Comment: Speci men Type: BLOOD SPECIMEN Ordering Facility: [facility] Address: [address] [place] [address] Performed By: #### 2 4323-8 #### [facility] CLIA [id number] [address] [place] [address] [place] ALT [Catalytic activity/Vol] 13 U/L Normal 7-38 [facility] Comment on above: Order Comment: Speci men Type: BLOOD SPECIMEN Ordering Facility: [facility] Address: [address] [place] [address] Performed By: #### 2 4323-8 #### [facility] CLIA [id number] [address] [place] [address] [place] Anion gap [Moles/Vol] 7 mmol/L Low 8-15 [facility] Comment on above: Order Comment: Speci men Type: BLOOD SPECIMEN Ordering Facility: [facility] Address: [address] [place] [address] Performed By: #### 2 4323-8 #### [facility] CLIA [id number] [address] [place] [address] [place] AST [Catalytic activity/Vol] 33 U/L Normal 13-35 [facility] Comment on above: Order Comment: Speci men Type: BLOOD SPECIMEN Ordering Facility: [facility] Address: [address] [place] [address] Performed By: #### 2 4323-8 #### [facility] [place] [id number] [place] [address] [place] Bilirubin [Mass/Vol] 0.3 mg/dL Normal 0.2-1.3 [facility] Comment on above: Order Comment: Speci men Type: BLOOD SPECIMEN Ordering Facility: [facility] Address: [address] [place] [address] Performed By: #### 2 4323-8 #### [facility] [place] [id number] [address] [place] [address] [place] Calcium [Mass/Vol] 9.3 mg/dL Normal 8.5-10.2 [facility] Comment on above: Order Comment: Speci men Type: BLOOD SPECIMEN Ordering Facility: [facility] Address: [address] [place] [address] Performed By: #### 2 4323-8 #### [facility] CLIA [id number] [address] [place] [address] [place] Chloride [Moles/Vol] 105 mmol/L Normal 98-107 [facility] Comment on above: Order Comment: Speci men Type: BLOOD SPECIMEN Ordering Facility: [facility] Address: [address] [place] [address] Performed By: #### 2 4323-8 #### [facility] CLIA [id number] [address] [place] [address] [place] CO2 [Moles/Vol] 31 mmol/L High 22-30 [facility] Comment on above: Order Comment: Speci men Type: BLOOD SPECIMEN Ordering Facility: [facility] Address: [address] [place] [address] Performed By: #### 2 4323-8 #### [facility] CLIA [id number] [address] [place] [address] [place] Creatinine [Mass/Vol] 0.82 mg/dL Normal 0.58-0.96 [facility] Comment on above: Order Comment: Speci men Type: BLOOD SPECIMEN Ordering Facility: [facility] Address: [address] [place] [address] Performed By: #### 2 4323-8 #### [facility] CLIA [id number] [facility] Creatinine and Glomerular filtration rate.predicted panel (S/P/Bld) 76 mL/min/1.73m??? Normal >=60 [facility] Comment on above: Order Comment: Speci men Type: BLOOD SPECIMEN Ordering Facility: [facility] Address: [address] [place] [address] Result Comment: Summer mated Glomerular Filtration Rate [...] GFR. Performed By: #### 2 4323-8 #### [facility] CLIA [id number] [address] [place] [address] [place] Glucose [Mass/Vol] 111 mg/dL High 74-99 [facility] Comment on above: Order Comment: Sulaiman torres Type: BLOOD SPECIMEN Ordering Facility: [facility] Address: [address] [place] [address] Result Comment: The Stateless Diabetes Association (ADA) provides guidance for cutoff [...] Standards of Medical Care in Diabetes 2016, Stateless Diabetes Association. Diabetes Care. 2016.39(Suppl 1). Performed By: #### 2 4323-8 #### [facility] CLIA [id number] [address] [place] [address] [place] Potassium [Moles/Vol] 4.1 mmol/L Normal 3.7-5.1 [facility] Comment on above: Order Comment: Sulaiman torres Type: BLOOD SPECIMEN Ordering Facility: [facility] Address: [address] [place] [address] Performed By: #### 2 4323-8 #### [facility] CLIA [id number] [address] [place] [address] [place] Protein [Mass/Vol] 6.3 g/dL Normal 6.3-8.0 [facility] Comment on above: Order Comment: Sulaiman torres Type: BLOOD SPECIMEN Ordering Facility: [facility] Address: [address] [place] [address] Performed By: #### 2 4323-8 #### [facility] CLIA [id number] [address] [place] [address] [facility] Sodium [Moles/Vol] 143 mmol/L Normal 136-144 [facility] Comment on above: Order Comment: Speci men Type: BLOOD SPECIMEN Ordering Facility: [facility] Address: [address] [place], [place] [address] Performed By: #### 2 4323-8 #### [facility] CLIA [id number] [address] [place] [address] [place] [facility] Urea nitrogen [Mass/Vol] 11 mg/dL Normal 7-21 [facility] Comment on above: Order Comment: Speci men Type: BLOOD SPECIMEN Ordering Facility: [facility] Address: [address] [place], [place] [address] Performed By: #### 2 4323-8 #### [facility] CLIA [id number] [address] [place] [address] [facility] ED NOTEon 09-11-2023 ED NOTE HNO ID: [id number] Author: CHARLOTTE OBRIEN RN Service: Emergency Medicine [...] with steady gait out of ED Normal [facility] ED PROV NOTEon 09-11-2023 ED PROV NOTE HNO ID: [id number] Author: KIM HARRIS PA-C Service: Emergency Medicine Author Type: Physician Rig Builder Helper Type: ED Provider Notes Filed: 09/11/2023 17:52 [...] was seen at an outside hospital at [facility]'s ED 2 weeks ago, was actually seen [...] Weight Height 09/11/23 1422 09/11/23 1422 09/11/23 1422 09/11/23 1422 09/11/23 1422 09/11/23 1422 09/11/23 1422 -- 135/63 84 36.7 [...] We have arran (more content not included)... Normal [facility] ED Triage Noteon 09-11-2023 ED Triage Note HNO ID: [id number] Author: FELICIA HILL MD Service: ? Author [...] from bedside clinician. SIGNATURE: Felicia Hill MD [facility] Laboratory - Chemistry and C hemistry - challengeon 09-11-2023 Bilirubin Ql (U) Negative Negative [facility] Glucose (U) [Mass/Vol] Negative Trace , Negative [facility] Ketones Ql (U) Negative Negative, Trace [facility] pH (U) 6.0 [pH] 5.0-8.0 [facility] Specific gravity (U) [Rel density] 1.009 1.005-1.03 0 [facility] Albumin [Mass/Vol] 3.9 g/dL 3.9-4.9 [facility] ALP [Catalytic activity/Vol] 109 U/L 34-123 [facility] ALT [Catalytic activity/Vol] 13 U/L 7-38 [facility] AST [Catalytic activity/Vol] 33 U/L 13-35 [facility] Bilirubin [Mass/Vol] 0.3 mg/dL 0.2-1.3 [facility] Calcium [Mass/Vol] 9.3 mg/dL 8.5-10.2 [facility] Chloride [Moles/Vol] 105 mmol/L 98-107 [facility] CO2 [Moles/Vol] 31 mmol/L High 22-30 [facility] Creatinine [Mass/Vol] 0.82 mg/dL 0.58-0.96 [facility] Glucose [Mass/Vol] 111 mg/dL High 74-99 [facility] Comment on above: The Stateless Diabete s Association (ADA) provides guidance for [...] Standards of Medical Care in Diabetes 2016, Stateless Diabetes Association. Diabetes Care. 2016.39(Suppl 1). Potassium [Moles/Vol] 4.1 mmol/L 3.7-5.1 [facility] Sodium [Moles/Vol] 143 mmol/L 136-144 [facility] Urea nitrogen [Mass/Vol] 11 mg/dL 7-21 [facility] Laboratory - Specimen inform ationon 09-11-2023 Appearance (U) Clear Clear [facility] Color (U) Colorless yellow [facility] Laboratory - Urinalysison Leukocyte esterase Test strip Ql (U) Negative Negative, 25 Chris/uL [facility] Nitrite Ql (U) Negative Negative [facility] Protein Ql (U) Negative Trace, Negative [facility] No Panel Informationon 09-10 Urine Occult Blood Trace Negative, Trace [facility] Urine RBC 0-3 /HPF 0-3 /HPF [facility] Urine Urobilinogen Normal Normal [facility] Urine WBC 0-5 /HPF 0-5 /HPF [facility] Estimated GFR (CKD-EPI) 76 mL/min/1.73m??? >=60 [facility] Comment on above: Estimated Glomerular Filtration Rate [...] Plasmaon 09-11-2023 Protein [Mass/Vol] 6.3 g/dL 6.3-8.0 [facility] Serum or plasma anion gap de terminationon 09-11-2023 Anion gap [Moles/Vol] 7 mmol/L Low 8-15 [facility] Urinalysis complete panel (U )on 09-11-2023 Bilirubin Ql (U) Negative Normal Negative [facility] Comment on above: Order Comment: Speci men Type: URINE SPECIMEN Ordering Facility: [facility] Address: [address] [place] [address] Performed By: #### 2 4356-8 #### [facility] CLIA [id number] [address] [place] [address] [place] Clarity (Unsp spec) Clear Normal Clear [facility] Comment on above: Order Comment: Speci men Type: URINE SPECIMEN Ordering Facility: [facility] Address: [address] [place] [address] Performed By: #### 2 4356-8 #### [facility] [place] [id number] [place] [address] [place] Color (U) Colorless Normal yellow [facility] Comment on above: Order Comment: Speci men Type: URINE SPECIMEN Ordering Facility: [facility] Address: [address] [place] [address] Performed By: #### 2 4356-8 #### [facility] [place] [id number] [address] [place] [address] [place] Glucose Test strip (U) [Mass/Vol] Negative Normal Trace, Negative [facility] Comment on above: Order Comment: Speci men Type: URINE SPECIMEN Ordering Facility: [facility] Address: [address] [place] [address] Performed By: #### 2 4356-8 #### [facility] [place] [id number] [place] [address] [place] Hemoglobin Ql (U) Trace Normal Negative, Trace [facility] Comment on above: Order Comment: Speci men Type: URINE SPECIMEN Ordering Facility: [facility] Address: [address] [place] [address] Performed By: #### 2 4356-8 #### [facility] [place] [id number] [address] [place] [address] [place] Ketones Ql (U) Negative Normal Negative, Trace [facility] Comment on above: Order Comment: Speci men Type: URINE SPECIMEN Ordering Facility: [facility] Address: [address] [place] [address] Performed By: #### 2 4356-8 #### [facility] [place] [id number] [place] [id number] [place] [address] [place] Leukocyte esterase Test strip Ql (U) Negative Normal Negative, 25 Chris/uL [facility] Comment on above: Order Comment: Speci men Type: URINE SPECIMEN Ordering Facility: [facility] Address: [address] [place] [address] Performed By: #### 2 4356-8 #### [facility] [place] [id number] [address] [place] [address] [place] Nitrite Ql (U) Negative Normal Negative [facility] Comment on above: Order Comment: Speci men Type: URINE SPECIMEN Ordering Facility: [facility] Address: [address] [place] [address] Performed By: #### 2 4356-8 #### [facility] [place] [id number] [address] [place] [address] [place] pH (U) 6.0 [pH] Normal 5.0-8.0 [facility] Comment on above: Order Comment: Speci men Type: URINE SPECIMEN Ordering Facility: [facility] Address: [address] [place] [address] Performed By: #### 2 4356-8 #### [facility] [place] [id number] [address] [place] [address] [place] Protein (U) [Mass/Vol] Negative Normal Trace , Negative [facility] Comment on above: Order Comment: Speci men Type: URINE SPECIMEN Ordering Facility: [facility] Address: [address] [place], [place] [address] Performed By: #### 2 4356-8 #### [facility] [place] [id number] [address] [place] [address] [place] RBC LM.HPF (Urine sed) [#/Area] 0-3 /HPF Normal 0-3 /HPF [facility] Comment on above: Order Comment: Speci men Type: URINE SPECIMEN Ordering Facility: [facility] Address: [address] [place] [address] Performed By: #### 2 4356-8 #### [facility] [place] [id number] [address] [place] [address] [place] Specific gravity (U) [Rel density] 1.009 Normal 1.005-1.03 0 [facility] Comment on above: Order Comment: Speci men Type: URINE SPECIMEN Ordering Facility: [facility] Address: [address] [place] [address] Performed By: #### 2 4356-8 #### [facility] [place] [id number] [place], [place] [address] [facility] Urobilinogen Ql (U) Normal Normal Normal [facility] Comment on above: Order Comment: Speci men Type: URINE SPECIMEN Ordering Facility: [facility] Address: [address] [place] [address] Performed By: #### 2 4356-8 #### [facility] [place] [id number] [place], [place] [address] [place] WBC LM.HPF (Urine sed) [#/Area] 0-5 /HPF Normal 0-5 /HPF [facility] Comment on above: Order Comment: Speci men Type: URINE SPECIMEN Ordering Facility: [facility] Address: [address] [place] [address] Performed By: #### 2 4356-8 #### [facility] [place] [id number] [address] [place] [address] [place] Pulmonary Rehabon 09-10-2023 Pulmonary Rehab [id number]#1.00TIFF Normal [facility]monary Rehab [id number]#1.00TIFF Normal [facility]monary Rehab [id number]#1.00TIFF Normal [facility] Consent for Treatmenton 08-08 Consent for Treatment [id number]#1.00TIFF Normal [facility] Automated epithelial cells c ount in urine sediment (number/area)Ordered By: Parris Guzman on 09-04-2023 Epithelial cells Auto (Urine sed) [#/Area] 5-9 [HPF] High 0-2 [facility] Bacteria [Presence] in Urine by AutomatedOrdered By: Parris Guzman on 09-04-2023 Bacteria Auto Ql (U) None seen [HPF] None Seen [facility] Bilirubin Test strip Ql (U)O rdered By: Parris Guzman on 09-04-2023 Bilirubin Ql (U) Negative Negative [facility] Calcium oxalate crystals [Pr esence] in Urine sediment by Light microscopyOrdered By: Parris Guzman on 09-04-2023 Calcium oxalate crystals LM Ql (Urine sed) 1+ [HPF] [facility] Casts [#/area] in Urine sedi ment by Microscopy low power fieldOrdered By: Parris Guzman on 09-04-2023 Casts LM.LPF (Urine sed) [#/Area] None seen [LPF] None Seen [facility] Color of Urine by AutoOrdere d By: Parris Guzman on 09-04-2023 Color (U) Yellow Yellow [facility] Comment on above: Order Comment: Name Collection Type:: Collection Method Unknown Performed By: #### C UU, ADDONUAPLUS #### [place] [address] [place] Dipstick and Microscopicon 0 09-04-2023 Appearance (U) Turbid Critically abnormal Clear [facility] Comment on above: Order Comment: Name Collection Type:: Collection Method Unknown Performed By: #### C UU, ADDONUAPLUS #### [place] [address] [place] Bacteria,Urine None Seen Normal None Seen [facility] Comment on above: Order Comment: Name Collection Type:: Collection Method Unknown Performed By: #### C UU, ADDONUAPLUS #### [place] [address] [place] Bilirubin,Urine Negative Normal Negative The Count includes [facility] Comment on above: Order Comment: Name Collection Type:: Collection Method Unknown Performed By: #### C UU, ADDONUAPLUS #### [address] Calcium Oxalate Crystals,Urine 1+ Normal [facility] Comment on above: Order Comment: Name Collection Type:: Collection Method Unknown Performed By: #### C UU, ADDONUAPLUS #### [address] Glucose Ql (U) Normal Normal Normal [facility] Comment on above: Order Comment: Name Collection Type:: Collection Method Unknown Performed By: #### C UU, ADDONUAPLUS #### [place] [address] [place] Hyaline Casts,Urine None Seen Normal 0-1 [facility] Comment on above: Order Comment: Name Collection Type:: Collection Method Unknown Performed By: #### C UU, ADDONUAPLUS #### [place] [address] [place] Ketones Ql (U) Negative Normal Negative [facility] Comment on above: Order Comment: Name Collection Type:: Collection Method Unknown Performed By: #### C UU, ADDONUAPLUS #### [address] Leukocyte esterase Test strip Ql (U) Negative Normal Negative [facility] Comment on above: Order Comment: Name Collection Type:: Collection Method Unknown Performed By: #### C UU, ADDONUAPLUS #### [place] [address] [place] Nitrite,Urine Negative Normal Negative [facility] Comment on above: Order Comment: Name Collection Type:: Collection Method Unknown Performed By: #### C UU, ADDONUAPLUS #### [address] Occult Blood,Urine Trace High Negative [facility] Comment on above: Order Comment: Name Collection Type:: Collection Method Unknown Result Comment: PERF ORMED BY: [place] [address] PATHOLOGIST GARMENT LOOPER GURINDER DICK M.D. Performed By: #### C UU, ADDONUAPLUS #### [address] Other Casts,Urine None Seen Normal None Seen [facility] Comment on above: Order Comment: Name Collection Type:: Collection Method Unknown Result Comment: PERF ORMED BY: [place] [address] PATHOLOGIST GARMENT LOOPER GURINDER DICK M.D. Performed By: #### C UU, ADDONUAPLUS #### [place] [address] [place] Protein,Urine Negative Normal Negative [facility] Comment on above: Order Comment: Name Collection Type:: Collection Method Unknown Performed By: #### C UU, ADDONUAPLUS #### [place] [address] [place] RBC,Urine 3-4 Normal 0-4 [facility] Comment on above: Order Comment: Name Collection Type:: Collection Method Unknown Performed By: #### C UU, ADDONUAPLUS #### [place] [address] [place] Specificy [place],Urine 1.017 Normal 1.001-1.03 0 [facility] Comment on above: Order Comment: Name Collection Type:: Collection Method Unknown Performed By: #### C UU, ADDONUAPLUS #### [place] [address] [place] Squamous Epithelial Cell,Urine 5-9 High 0-2 [facility] Comment on above: Order Comment: Name Collection Type:: Collection Method Unknown Performed By: #### C UU, ADDONUAPLUS #### [facility] [address] Urobilinogen,Urine Normal Normal Normal [facility] Comment on above: Order Comment: Name Collection Type:: Collection Method Unknown Performed By: #### C UU, ADDONUAPLUS #### [facility] [address] WBC,Urine 1-2 Normal 0-4 [facility] Comment on above: Order Comment: Name Collection Type:: Collection Method Unknown Performed By: #### C UU, ADDONUAPLUS #### [facility] [address] [place] [address] Erythrocytes [#/area] in Uri ne sediment by Automated countOrdered By: Parris Guzman on 09-04-2023 RBC Auto (Urine sed) [#/Area] 3-4 [HPF] 0-4 [facility] Hyaline casts LM.LPF (Urine sed) [#/Area]Ordered By: Parris Guzman on 09-04-2023 Hyaline casts (Urine sed) [#/Area] None seen [LPF] 0-1 [facility] Ketones Auto test strip (U) [Mass/Vol]Ordered By: Parris Guzman on 09-04-2023 Ketones (U) [Mass/Vol] Negative Negative [facility] Laboratory - Chemistry and C hemistry - challengeon 09-04-2023 Bilirubin Ql (U) Negative [facility] Glucose (U) [Mass/Vol] Negative [facility] Ketones Ql (U) Negative [facility] pH (U) 5.5 [pH] [facility] Specific gravity (U) [Rel density] 1.020 [facility] Urobilinogen (U) [Mass/Vol] 0.2 mg/dL [facility] Laboratory - Specimen inform ationon 09-04-2023 Appearance (U) clear [facility] Color (U) yellow [facility] Laboratory - Urinalysison Leukocyte esterase Test strip Ql (U) Negative [facility] Nitrite Ql (U) Negative [facility] Protein Ql (U) Negative [facility] Leukocytes [#/area] in Urine sediment by Automated countOrdered By: Parris Guzman on 09-04-2023 WBC Auto (Urine sed) [#/Area] 1-2 [HPF] 0-4 [facility] Nitrite Test strip Ql (U)Ord ered By: Parris Guzman on 09-04-2023 Nitrite Ql (U) Negative Negative [facility] No Panel Informationon 09-03 Urine Occult Blood small [facility] Protein Auto test strip (U) [Mass/Vol]Ordered By: Parris Guzman on 09-04-2023 Protein (U) [Mass/Vol] Negative Negative [facility] Specific gravity Auto test s trip (U) [Rel density]Ordered By: Parris Guzman on 09-04-2023 Specific gravity (U) [Rel density] 1.017 1.001-1.03 0 [facility] Urine Cultureon 09-04-2023 Bacteria identified Cx Nom (U) 20,000 colonies/ml mixed bacterial skin contaminants 2 Days PERFORMED BY: [place] [address] PATHOLOGIST GARMENT LOOPER GURINDER Abarca [facility] Comment on above: Performed By: #### C UU, ADDONUAPLUS #### [address] Urine clarity by refractomet ry automatedOrdered By: Parris Guzman on 09-04-2023 Clarity Refractometry automated (U) Turbid Abnormal Clear [facility] Urine culture routineOrdered By: Parris Guzman on 09-04-2023 Bacteria identified Cx Nom (U) 2 Days [facility] Urine glucose measurement by automated test strip (mass/volume)Ordered By: Parris Guzman on 09-04-2023 Glucose Auto test strip (U) [Mass/Vol] Normal mg/dL Normal [facility] Urine hemoglobin detection b y automated test stripOrdered By: Parris Guzman on 09-04-2023 Hemoglobin Auto test strip Ql (U) Trace High Negative [facility] Urine leukocyte esterase det ection by automated test stripOrdered By: Parris Guzman on 09-04-2023 Leukocyte esterase Auto test strip Ql (U) Negative Negative [facility] Urine pH measurement by auto mated test stripOrdered By: Parris Guzman on 09-04-2023 pH (U) 5.0 [pH] 5.0-9.0 [facility] Comment on above: Order Comment: Name Collection Type:: Collection Method Unknown Performed By: #### C UU, ADDONUAPLUS #### [facility] [address] Urobilinogen Auto test strip (U) [Mass/Vol]Ordered By: Parris Guzman on 09-04-2023 Urobilinogen (U) [Mass/Vol] Normal mg/dL Normal [facility] C Urineon 08-28-2023 Bacteria identified Cx Nom [...] spectrum beta-lactamase, R=Resistant, TFG=Thymidine-dependent strain, YAQUELIN=Beta-lactamase positive, OLIVA=mcg/m;(mg/L), S*=Predicted susceptible interp, R*=Predicted resistant interp EC [...] Locations R1: This test was performed at: [facility], [address] [place] [address], [address] , , [facility] Comment on above: Performed By: #### 2 [id number] #### [facility] [address] [place] [address] BMPon 08-27-2023 Anion gap [Moles/Vol] 11 mmol/L Normal 6-16 [facility] Comment on above: Performed By: #### 2 [id number] #### [facility] [address] [place] [address] Calcium [Mass/Vol] 8.9 mg/dL Normal 8.9-11.1 [facility] Comment on above: Performed By: #### 2 [id number] #### [facility] [address] [place] [address] Chloride [Moles/Vol] 100 mmol/L Low 101-111 [facility] Comment on above: Performed By: #### 2 [id number] #### [facility] [address] [place] [address] CO2 [Moles/Vol] 31 mmol/L Normal 21-31 [facility] Comment on above: Performed By: #### 2 720682 #### [facility] [address] [place] [address] Creatinine [Mass/Vol] 0.9 mg/dL Normal 0.5-1.3 [facility] Comment on above: Performed By: #### 2 [id number] #### [facility] [address] [place] [address] Glucose [Mass/Vol] 128 mg/dL Normal 55-199 [facility] Comment on above: Performed By: #### 2 251839 #### [facility] [address] [place] [address] Potassium [Moles/Vol] 4.1 mmol/L Normal 3.5-5.3 [facility] Comment on above: Performed By: #### 2 394090 #### [facility] [address] [place] [address] Sodium [Moles/Vol] 138 mmol/L Normal 135-145 [facility] Comment on above: Performed By: #### 2 [id number] #### [facility] [address] [place] [address] Urea nitrogen [Mass/Vol] 17 mg/dL Normal 5-21 [facility] Comment on above: Performed By: #### 2 788096 #### [facility] [address] [place] [address] Urea nitrogen/Creatinine [Mass ratio] 19 No Units Normal 10-20 [facility] Comment on above: Performed By: #### 2 182774 #### [facility] [address] [place] [address] CBC w/ Auto Diffon 4 Basophils/100 WBC (Bld) 0.2 % Normal 0.0-2.0 [facility] Comment on above: Performed By: #### 2 155249 #### [facility] [address] [place] [address] Basophils/Leukocytes Auto (Bld) [Pure # fraction] 0.0 E9/L Normal 0.0-0.2 [facility] Comment on above: Performed By: #### 2 086997 #### [facility] Laboratory [address] [place] [address] Eosinophils (Bld) [#/Vol] 0.2 E9/L Normal 0.0-0.5 [facility] Comment on above: Performed By: #### 2 [id number] #### [facility] Laboratory [address] [place] [address] Eosinophils/100 WBC (Bld) 1.3 % Normal 0.0-8.0 [facility] Comment on above: Performed By: #### 2 [id number] #### [facility] Laboratory [address] [place] [address] Erythrocyte distribution width (RBC) [Ratio] 14.4 % High 10.9-14.2 [facility] Comment on above: Performed By: #### 2 [id number] #### [facility] Laboratory [address] [place] [address] Hematocrit (Bld) [Volume fraction] 37.5 % Normal 34.0-46.0 [facility] Comment on above: Performed By: #### 2 867388 #### [facility] Laboratory [address] [place] [address] Hemoglobin (Bld) [Mass/Vol] 12.9 g/dL Normal 12.0-16.0 [facility] Comment on above: Performed By: #### 2 045936 #### [facility] Laboratory [address] [place] [address] Lymphocytes (Bld) [#/Vol] 2.9 E9/L Normal 1.0-4.0 [facility] Comment on above: Performed By: #### 2 463231 #### [facility] [address] [place] [address] Lymphocytes/100 WBC (Bld) 19.8 % Normal 14.0-50.0 [facility] Comment on above: Performed By: #### 2 048702 #### [facility] Laboratory [address] [place] [address] MCH (RBC) [Entitic mass] 33.0 pg Normal 27.0-34.0 [facility] Comment on above: Performed By: #### 2 770306 #### [facility] Laboratory [address] [place] [address] MCHC (RBC) [Mass/Vol] 34.3 g/dL Normal 31.4-36.0 [facility] Comment on above: Performed By: #### 2 469585 #### [facility] Laboratory [address] [place] [address] MCV (RBC) [Entitic vol] 96.4 fL Normal 80.0-100.0 [facility] Comment on above: Performed By: #### 2 669185 #### [facility] Laboratory [address] [place] [address] Monocytes (Bld) [#/Vol] 1.2 E9/L High 0.2-1.0 [facility] Comment on above: Performed By: #### 2 941729 #### [facility] Laboratory [address] [place] [address] Neutrophils (Bld) [#/Vol] 10.3 E9/L High 2.0-7.5 [facility] Comment on above: Performed By: #### 2 761425 #### [facility] Laboratory [address] [place] [address] Neutrophils/100 WBC (Bld) 70.7 % Normal 36.0-75.0 [facility] Comment on above: Performed By: #### 2 922862 #### [facility] Laboratory [address] [place] [address] Platelet mean volume (Bld) [Entitic vol] 8.0 fL Normal 6.4-10.8 [facility] Comment on above: Performed By: #### 2 978077 #### [facility] Laboratory [address] [place] [address] Platelets (Bld) [#/Vol] 225.0 E9/L Normal 150.0-500. 0 [facility] Comment on above: Performed By: #### 2 579096 #### [facility] Laboratory [address] [place] [address] RBC (Bld) [#/Vol] 3.9 E12/L Low 4.3-5.9 [facility] Comment on above: Performed By: #### 2 155984 #### [facility] Laboratory [address] [place] [address] WBC corrected for nucl RBC Auto (Bld) [#/Vol] 14.5 E9/L High 4.0-11.0 [facility] Comment on above: Performed By: #### 2 197114 #### [facility] Laboratory [address] [place] [address] CHEMISTRYOrdered By: SYSTEM SYSTEM on 08-27-2023 Anion [...] Remisol Chem Discharge Instructionson Discharge Instructions [id number] Normal [facility] Recorrido Education Videoon Recorrido Education Video Opioids: Know What's Safe Patient Yes Normal [facility] Immunovative TherapiesWell Education Video Yes Managing Pain While You're in the Hospital Patient Normal [facility] GetWell Education Video Patient Yes Living With Chronic Pain Normal [facility] GetWell Education Video Patient Yes Chronic Pain: Treatments Other Than Medicine Normal [facility] Immunovative TherapiesWell Education Video Patient Yes Chronic Pain: How Medicines Can Help You Manage It Normal [facility] Immunovative TherapiesWell Education Video Yes Avoiding Infections in the Hospital Patient Normal [facility] HEMATOLOGYOrdered By: SYSTEM SYSTEM on 08-27-2023 Basophils/100 [...] Inpatient Clinical Summaryon 08-27-2023 Inpatient Clinical Summary [address] [address] Clinical Summary Person Information: Name: NICOLE LOMELI Age: 72 Years : 1950 Sex: Female PCP: PARRIS GUZMAN DO Marital Status: Phone: [phone] Race: White Ethnicity: Non- or Language: Kinyarwanda Visit Id: Visit Reason: Nausea; Chest pain; chest pain Speciality: Acuity: Enc Type: Observation Med Service: Medical Arrival: 08/26/2023 03:50:45 Discharge: Dispo Type: Admitted as IP to this Hosp Address: [address] [place] [id number] Provider Notes: Diagnosis: 1:Chest pain; 2:Leukocytosis; 3:Nausea; [...] RODAS DO Consulting Physician: Reid Garcia MD; [facility] Cardio, XXXX Referring Physician: Follow up: With: Address: When: Reid Garcia MD, CAR Within 2 to 4 weeks Comments: Call for followup appointment With: Address: When: PARRIS GUZMAN DO , [address] [address] Within 2 to 3 days Comments: Call for followup appointment Type Location Start Finish State [facility] Pulmonary Rehab (FT) FT.Pulmonary Rehab 09/05/2023 10:30 AM 09/05/2023 12:30 PM Confirmed Patient Education Information: Nonspecific Chest Pain, Adult, Fxye-lb-Drvy; Urinary Tract Infection, Adult, [id number]-[id number] Normal [facility] Inpatient Patient Summaryon 08-27-2023 Inpatient Patient Summary NICOLE LOMELI :1950 Visit Date:08/26/2023 Inpatient Discharge Instructions Your Care Team Admitting Physician - Albert RODAS DO Consulting Physician - [facility] Cardio, XXXX Reid Garcia MD Reason for [...] Diagnostic Test Results Urine culture Pharmacy Information [place] Discharge Instructions Please return to ER if [...] days Comments: Call for followup appointment Where: [facility] SHARON MCDONNELL, [facility] [address] [place] [address]- Medications What How Much When Instructions Next Dose New cephalexin (Keflex 500 mg Cap) 1 Capsules By Mouth 2 times a day Pickup at [facility] 08/26 pm Unchanged acetaminophen-oxycodone (acetaminophen-oxycodone 325 mg-10 mg [...] 1 Tablets By Mouth Every day 08/27 Unchanged clopidogrel (Plavix 75 mg Tab) 1 Tablets By Mouth Every other day 08/27 Unchanged ergocalciferol (Vitamin D 50,000 intl units (1.25 mg) oral capsule) 1 Capsules By Mouth 08/31 Unchanged fenofibrate (TriCor 145 mg oral tablet) 1 Tablets By Mouth Every day 08/27 Unchanged fluconazole (fluconazole 200 mg Tab) 1 Tablets By Mouth Every day Duration: 14 Days 08/27 Unchanged fluoxetine (Prozac 40 mg Cap) 1 Capsules By Mouth Every day 08/27 Unchanged fluticasone-vilanterol (Breo Ellipta 100 mcg-25 mcg inhalation powder) 1 Puffs Inhalation Every day 30 dose unit Unchanged morphine (morphine 15 mg/ 8 hr oral tablet, extended release) 1 Tablets By Mouth Every 12 hours 08/26 Unchanged omeprazole (omeprazole 20 mg Cap-EC) 1 Capsules By Mouth Every day 08/27 Unchanged raloxifene (Evista 60 mg Tab) 1 Tablets By Mouth Every day 08/27 Unchanged senna (Senna 8.6 mg oral tablet) 2 Tablets By Mouth Once a day (at bedtime) 08/26 pm Unchanged simvastatin (simvastatin 40 mg Tab) 1 Tablets By Mouth Once a day (at bedtime) 5/21 9 pm Unchanged tizanidine (tiZANidine 2 mg Tab) 1 Tablets By Mouth Every 8 hours as needed for Spasm as needed and as prescribed Pharmacy Information [facility] [address] [facility] [place], (more content not included)... Normal [facility] Inpatient Patient Summary [address] [address] Patient Discharge Instructions PERSON INFORMATION [...] culture Follow up: With: Address: When: Radha MORFIN, Reid Junior, ISI Within 2 to 4 weeks Comments: Call for followup appointment With: Address: When: PARRIS GUZMAN DO, [address], [facility] [address] [place] [address] Within 2 to 3 days Comments: Call for followup appointment In the event that this physician does not participate in your insurance network, please consult with your insurance company to find a nearby participating provider. Type Location Start Finish State [facility] Pulmonary Rehab (FT) FT.Pulmonary Rehab 09/05/2023 10:30 AM 09/05/2023 12:30 PM Confirmed Comment: JUNIOR Kim ROSALIE A, have received the attached patient education materials/instructions and have verbalized understanding: Patient Signature ____ Date Clinican/Nurse Signature Date HERE ARE THE MEDICATION CHANGES THAT OCCURRED DURING YOUR HOSPITAL STAY New Medications [facility], [address] [facility] [address] [place], [place] [id number], [phone] cephalexin (Keflex 500 mg Cap) 1 Capsules [...] 8.6 mg ora (more content not included)... 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 [...] at home. Patient was provided CRM contact, white board updated. CRM following. CRM will get updates from Dr Horton at 10 Am [facility] Comment on above: Result Comment: Elec tronically Signed By: Elvira Chin\.br\Date and Time Signed: 08/27/23 08:41 EDT Monitor Recordon 08-27-2023 Monitor Record [id number] Normal [facility] Monitor Record [id number]#[id number] Normal [facility] Monitor Record [id number]#[id number] Normal [facility] Patient Education - Texton 0 08-27-2023 Patient [...] these instructions at home: Medicines ? Take qlvt-qri-pxmmqzi and prescription medicines only as told by [...] Eating a heart-healthy diet. A diet and holistic nutritionist (dietitian) can help you to learn healthy [...] provider. Document Revised: 06/08/2021 Document Reviewed: 06/08/2021 [employer] Patient Education ? 2022 [employer]. Obstetrics and Gynecology Urinary Tract Infection, Adult [...] the ri (more content not included)... Normal [facility] eGFRon 08-27-2023 eGFR 67 mL/min/1.73 m2 Normal >=59 [facility] Comment on above: Order Comment: Order added by Discern Expert. Performed By: #### 1 [id number] ####[facility] [address] [place] [address] [facility] 08-26-2023 Anion gap [Moles/Vol] 10 mmol/L Normal 6-16 [facility] Comment on above: Performed By: #### 2 [id number] #### [facility] Laboratory [address] [place] [address] Calcium [Mass/Vol] 9.1 mg/dL Normal 8.9-11.1 [facility] Comment on above: Performed By: #### 2 783249 #### [facility] Laboratory [address] [place] [address] Chloride [Moles/Vol] 100 mmol/L Low 101-111 [facility] Comment on above: Performed By: #### 2 953260 #### [facility] Laboratory [address] [place] [address] CO2 [Moles/Vol] 33 mmol/L High 21-31 [facility] Comment on above: Performed By: #### 2 769809 #### [facility] Laboratory [address] [place] [address] Creatinine [Mass/Vol] 1.0 mg/dL Normal 0.5-1.3 [facility] Comment on above: Performed By: #### 2 948100 #### [facility] [address] [place] [address] Glucose [Mass/Vol] 84 mg/dL Normal 55-199 [facility] Comment on above: Performed By: #### 2 320281 #### [facility] Laboratory [address] [place] [address] Potassium [Moles/Vol] 4.2 mmol/L Normal 3.5-5.3 [facility] Comment on above: Performed By: #### 2 165698 #### [facility] [address] [place] [address] Sodium [Moles/Vol] 139 mmol/L Normal 135-145 [facility] Comment on above: Performed By: #### 2 302484 #### [facility] Laboratory [address] [place] [address] Urea nitrogen [Mass/Vol] 18 mg/dL Normal 5-21 [facility] Comment on above: Performed By: #### 2 617918 #### [facility] Laboratory [address] [place] [address] Urea nitrogen/Creatinine [Mass ratio] 18 No Units Normal 10-20 [facility] Comment on above: Performed By: #### 2 248466 #### [facility] Laboratory [address] [place] [address] CBC w/ Auto Diffon 4 Basophils/100 WBC (Bld) 1.0 % Normal 0.0-2.0 [facility] Comment on above: Performed By: #### 2 401033 #### [facility] Laboratory [address] [place] [address] Basophils/Leukocytes Auto (Bld) [Pure # fraction] 0.2 E9/L Normal 0.0-0.2 [facility] Comment on above: Performed By: #### 2 395643 #### [facility] Laboratory [address] [place] [address] Eosinophils (Bld) [#/Vol] 0.2 E9/L Normal 0.0-0.5 [facility] Comment on above: Performed By: #### 2 087094 #### [facility] Laboratory [address] [place] [address] Eosinophils/100 WBC (Bld) 1.0 % Normal 0.0-8.0 [facility] Comment on above: Performed By: #### 2 561549 #### [facility] Laboratory [address] [place] [address] Erythrocyte distribution width (RBC) [Ratio] 14.2 % Normal 10.9-14.2 [facility] Comment on above: Performed By: #### 2 576212 #### [facility] Laboratory [address] [place] [address] Hematocrit (Bld) [Volume fraction] 35.7 % Normal 34.0-46.0 [facility] Comment on above: Performed By: #### 2 359662 #### [facility] Laboratory [address] [place] [address] Hemoglobin (Bld) [Mass/Vol] 11.9 g/dL Low 12.0-16.0 [facility] Comment on above: Performed By: #### 2 188633 #### [facility] Laboratory [address] [place] [address] Lymphocytes (Bld) [#/Vol] 4.1 E9/L High 1.0-4.0 [facility] Comment on above: Performed By: #### 2 242423 #### [facility] Laboratory [address] [place] [address] Lymphocytes/100 WBC (Bld) 22.6 % Normal 14.0-50.0 [facility] Comment on above: Performed By: #### 2 842854 #### [facility] Laboratory [address] [place] [address] MCH (RBC) [Entitic mass] 30.6 pg Normal 27.0-34.0 [facility] Comment on above: Performed By: #### 2 108400 #### [facility] Laboratory [address] [place] [address] MCHC (RBC) [Mass/Vol] 33.3 g/dL Normal 31.4-36.0 [facility] Comment on above: Performed By: #### 2 039503 #### [facility] [address] [place] [address] MCV (RBC) [Entitic vol] 92.1 fL Normal 80.0-100.0 [facility] Comment on above: Performed By: #### 2 615996 #### [facility] Laboratory [address] [place] [address] Monocytes (Bld) [#/Vol] 1.2 E9/L High 0.2-1.0 [facility] Comment on above: Performed By: #### 2 204120 #### [facility] Laboratory [address] [place] [address] Neutrophils (Bld) [#/Vol] 12.5 E9/L High 2.0-7.5 [facility] Comment on above: Performed By: #### 2 421522 #### [facility] Laboratory [address] [place] [address] Neutrophils/100 WBC (Bld) 68.6 % Normal 36.0-75.0 [facility] Comment on above: Performed By: #### 2 624415 #### [facility] [address] [place] [address] Platelet mean volume (Bld) [Entitic vol] 7.7 fL Normal 6.4-10.8 [facility] Comment on above: Performed By: #### 2 462295 #### [facility] [address] [place] [address] Platelets (Bld) [#/Vol] 212.0 E9/L Normal 150.0-500. 0 [facility] Comment on above: Performed By: #### 2 533185 #### [facility] Laboratory [address] [place] [address] RBC (Bld) [#/Vol] 3.9 E12/L Low 4.3-5.9 [facility] Comment on above: Performed By: #### 2 467099 #### [facility] [address] [place] [address] WBC corrected for nucl RBC Auto (Bld) [#/Vol] 18.2 E9/L High 4.0-11.0 [facility] Comment on above: Performed By: #### 2 712376 #### [facility] Laboratory [address] [place] [address] Basophils/100 WBC (Bld) 0.2 % Normal 0.0-2.0 [facility] Comment on above: Performed By: #### 2 560832 #### [facility] Laboratory [address] [place] [address] Basophils/Leukocytes Auto (Bld) [Pure # fraction] 0.0 E9/L Normal 0.0-0.2 [facility] Comment on above: Performed By: #### 2 360188 #### [facility] Laboratory [address] [place] [address] Eosinophils (Bld) [#/Vol] 0.2 E9/L Normal 0.0-0.5 [facility] Comment on above: Performed By: #### 2 456731 #### [facility] [address] [place] [address] Eosinophils/100 WBC (Bld) 1.3 % Normal 0.0-8.0 [facility] Comment on above: Performed By: #### 2 725279 #### [facility] Laboratory [address] [place] [address] Erythrocyte distribution width (RBC) [Ratio] 14.2 % Normal 10.9-14.2 [facility] Comment on above: Performed By: #### 2 280789 #### [facility] [address] [place] [address] Hematocrit (Bld) [Volume fraction] 37.7 % Normal 34.0-46.0 [facility] Comment on above: Performed By: #### 2 491288 #### [facility] [address] [place] [address] Hemoglobin (Bld) [Mass/Vol] 12.5 g/dL Normal 12.0-16.0 [facility] Comment on above: Performed By: #### 2 421069 #### [facility] [address] [place] [address] Lymphocytes (Bld) [#/Vol] 5.2 E9/L High 1.0-4.0 [facility] Comment on above: Performed By: #### 2 323699 #### [facility] [address] [place] [address] Lymphocytes/100 WBC (Bld) 29.7 % Normal 14.0-50.0 [facility] Comment on above: Performed By: #### 2 846098 #### [facility] [address] [place] [address] MCH (RBC) [Entitic mass] 30.9 pg Normal 27.0-34.0 [facility] Comment on above: Performed By: #### 2 448736 #### [facility] [address] [place] [address] MCHC (RBC) [Mass/Vol] 33.1 g/dL Normal 31.4-36.0 [facility] Comment on above: Performed By: #### 2 590156 #### [facility] [address] [place] [address] MCV (RBC) [Entitic vol] 93.3 fL Normal 80.0-100.0 [facility] Comment on above: Performed By: #### 2 800535 #### [facility] [address] [place] [address] Monocytes (Bld) [#/Vol] 1.3 E9/L High 0.2-1.0 [facility] Comment on above: Performed By: #### 2 802579 #### [facility] Laboratory [address] [place] [address] Neutrophils (Bld) [#/Vol] 10.7 E9/L High 2.0-7.5 [facility] Comment on above: Performed By: #### 2 509511 #### [facility] Laboratory [address] [place] [address] Neutrophils/100 WBC (Bld) 61.4 % Normal 36.0-75.0 [facility] Comment on above: Performed By: #### 2 581800 #### [facility] Laboratory [address] [place] [address] Platelet mean volume (Bld) [Entitic vol] 7.3 fL Normal 6.4-10.8 [facility] Comment on above: Performed By: #### 2 681346 #### [facility] Laboratory [address] [place] [address] Platelets (Bld) [#/Vol] 229.0 E9/L Normal 150.0-500. 0 [facility] Comment on above: Performed By: #### 2 176195 #### [facility] Laboratory [address] [place] [address] RBC (Bld) [#/Vol] 4.0 E12/L Low 4.3-5.9 [facility] Comment on above: Performed By: #### 2 072820 #### [facility] Laboratory [address] [place] [address] WBC corrected for nucl RBC Auto (Bld) [#/Vol] 17.4 E9/L High 4.0-11.0 [facility] Comment on above: Performed By: #### 2 441197 #### [facility] Laboratory [address] [place] [address] CHEMISTRYOrdered By: SYSTEM SYSTEM on 08-26-2023 Troponin [...] High Sensitivity Troponin I Instructions For Use, [email or web address], November 2017) CRP [Mass/Vol] 0.9 mg/dL Normal [...] High Sensitivity Troponin I Instructions For Use, [email or web address], November 2017) Troponin 3.90 pg/mL Low 10.10 - 27.10 pg/mL [facility] Comment on above: Interpretive Data: T he 95% CI (Confidence Interval) PPV (Positive Predictive Value) for myocardial infarction in females is 38 pg/mL, in males 51 pg/mL. The results should be used in conjunction with clinical conditions of myocardial infarction. (Access High Sensitivity Troponin I Instructions For Use, [email or web address], November 2017) Anion gap [Moles/Vol] 10 mmol/L [...] 26.8 s Normal 25.1 - 36.5 second(s) [facility] [employer] Comment on above: Interpretive Data: Vinny cortez 15 days - 4 weeks 1 - [...] the same coagulation reagent and instrumentation as [facility]. Currently there are no coagulation studies available worldwide for children to 14 days, and no normal ranges. Heparin therapeutic range (represented by Anti-Factor Xa activity of 0.2 - 0.4 U/mL) corresponds to PTT of 56.6 - 109.0 sec. INR Coag (PPP) [Relative time] 0.90 {INR} Invalid Interpretation Code [facility] [employer] Comment on above: Interpretive Data: I NR results are specifically intended to assess patients stabilized on long-term Anticoagulation therapy suggested INR s Less Intensive Anticoagulation 2.0 3.0 Conventional Range 3.0 4.5 PT Coag (PPP) [Time] 10.1 s Normal 9.4 - 1 2.5 second(s) [facility] [employer] Comment on above: Interpretive Data: [...] the same coagulation reagent and instrumentation as [facility]. Currently there are no coagulation studies available worldwide for children to 14 days, and no normal ranges. CRPon 08-26-2023 CRP [Mass/Vol] 0.9 mg/dL Normal <=1.9 [facility] Comment on above: Performed By: #### 2 [id number] #### [facility] Laboratory [address] [place] [address] Consent for Treatmenton 08-07 Consent for Treatment [id number] Normal [facility] Consultation Noteon 08-26-19 24 Consultation Note Chief Complaint Left sided chest pain awoke pt. from sleep. 09/15, radiated to jaw and back. non productive cough recently. History of Present Illness Patient is a 72-year-old female who was admitted to the hospital due to chest pain. She presented to the ER in the horse [employer] with this chest pain. It was sudden onset that woke her up in the middle the night and radiated to back and jaw. Patient has history of minimally obstructive CAD seen on [facility] with Dr. Gordon in 12/2019. Most recent [...] no rash or concerning lesions [facility] C with Dr. Gordon on 12/09/2019: CONCLUSIONS: 1. [...] Only had minimally obstructive heart disease in 2020. Will await echo results. Previous echo from [...] tablet, 17.2 (more content not included)... Normal [facility] Comment on above: Result Comment: Elec tronically Signed By: Cheko Lindsay PA-C\.br\Date and Time Signed: 08/26/23 12:08 EDT\.br\Electronically Co-Signed By: Reid Garcia MD\.br\Date and Time Co-Signed: 08/26/23 13:24 EDT ED Clinical Summaryon 2023 ED Clinical Summary (Inserted Image. Lynda ble to display) [place] [id number] ED Clinical Summary Person Information Name: NICOLE LOMELI Niyah/[facility] Age: 72 Years : 1950 Sex: Female Language: Kinyarwanda PCP: PARRIS GUZMAN DO Marital Status: Phone: [phone] Visit Id: Visit Reason: Nausea; Chest pain; chest pain Speciality: Acuity: 2 Enc Type: Observation Med Service: Medical Arrival: 08/26/2023 03:50:45 Discharge: LOS: 000 11:27 Checkin: 08/26/2023 03:50:45 Checkout: 08/26/2023 15:17:04 Dispo Type: Admitted as IP to this [facility] EVENTS: Event Name Event Status Request Date/Time [...] 08/26/2023 07:54:42 Consult Request 08/26/2023 08:43:30 ADDRESS: [address] [place] [phone] PHYS DOC NOTES: MEDICAL INFORMATION: Prescriptions Given: [...] 8:Depression with anxiety; 9:Hyperlipidemia; 10:Urge incontinence Normal [facility] ED Note-Physicianon 08-26-19 ED Note-Physician Basic Information Time Seen: Christiana HENDRIX Yosvany McneilMichael 08/26/2023 03:51 History of Present Illness HPI: [...] and Complexity of Problems Differential Diagnosis: [] MDM Data External documents reviewed: Diagnostic left heart [...] Hyperlipidemia Hyperli (more content not included)... Normal [facility] Comment on above: Result Comment: Elec tronically Signed By: Yosvany Villeda DO\.br\Date and Time Signed: 08/26/23 06:50 EDT ED Patient Education Noteon 08-26-2023 ED Patient Education Note Normal [facility] ED Patient Summaryon 024 ED Patient Summary (Inserted Image. Lynda ble to display) [address] [address] Patient Discharge Instructions Person Information Name: NICOLE LOMELI Age: 72 Years Arrival Date: 08/26/2023 03:50:45 Discharge Diagnosis: 1:Chest pain; 2:Leukocytosis; 3:Nausea; 4:Chronic respiratory failure; 5:COPD (chronic obstructive pulmonary disease); 6:CVA (cerebral vascular accident); 7:Chronic GERD; 8:Depression with anxiety; 9:Hyperlipidemia; 10:Urge incontinence Primary Care Physician: PARRIS GUZMAN DO Provider Information Primary Provider: Yosvany Villeda DO Advanced Fountain Supervisor:None The exam and treatment you received in the Emergency Department were for an urgent problem and are not intended as complete care. It is important that you follow up with a doctor, nurse practitioner, or physician?s preschool teacher's assistant for ongoing care. If your symptoms [...] opioids can be used to help relieve xzqwhwww-jy-zhdjqe pain and are often prescribed following a [...] be struggling with addiction, tell your health animal care provider and ask for guidance or call [facility]?S Maeve (more content not included)... 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#1.00TIFF Normal [facility] Monitor Record [id number]#1.00TIFF Normal [facility] Monitor Record [id number]#1.00TIFF Normal [facility] Monitor Record [id number]#1.00TIFF Normal [facility] Monitor Record [id number]#1.00TIFF Normal [facility] Monitor Record [id number]#1.00TIFF Normal [facility] Monitor Record [id number]#1.00TIFF Normal [facility] Monitor Record [id number]#1.00TIFF Normal [facility] Monitor Record [id number]#1.00TIFF Normal [facility] Monitor Record [id number]#1.00TIFF Normal [facility] PT & PTTon 08-26-2023 aPTT Coag (PPP) [Time] 26.8 second(s) Normal 25.1-36.5 [facility] Comment on above: Result Comment: Para meter [...] the same coagulation reagent and instrumentation as [facility]. Currently there are no coagulation studies available worldwide for children to 14 days, and no normal ranges. Heparin therapeutic range (represented by Anti-Factor Xa activity of 0.2 - 0.4 U/mL) corresponds to PTT of 56.6 - 109.0 sec. Performed By: #### 1 [id number] #### [facility] [address] [place] [address] INR Coag (PPP) [Relative time] 0.90 {INR} Invalid Interpretation Code [facility] Comment on above: Result Comment: INR results are specifically intended to assess patients stabilized on long-term Anticoagulation therapy suggested INR?s ?Less Intensive Anticoagulation? 2.0 ? 3.0 Conventional Range 3.0 ? 4.5 Performed By: #### 1 [id number] #### [facility] [address] [place] [address] PT Coag (PPP) [Time] 10.1 second(s) Normal 9.4-12.5 [facility] Comment on above: Result Comment: 15 d [...] the same coagulation reagent and instrumentation as [facility]. Currently there are no coagulation studies available worldwide for children to 14 days, and no normal ranges. Performed By: #### 1 [id number] #### [facility] [address] [place] [address] Pre-Arrival Noteon Pre-Arrival Note Pre-Arrival Summary Name: , MITRA Current Date: 08/26/2023 03:53:35 EDT Gender: Female Date of : Age: 72 Pre-Arrival Type: EMS ETA: 08/26/2023 03:40:00 EDT Primary Care Physician: Presenting Problem: chest pain Pre-Arrival User: Silvina Richard RN Referring Source: Location: [place] Completion Date/Time: 08/26/2023 03:37:00 [facility] Emergency Department Pre-Hospital Report Form ____ Vital Signs: 129/64--SR(no elevation)-90--22--98%4L Pre-Hospital Report:chest pain woke out of sleep, Left sided radiates to jaw and back started resolving before squad arrived, currently 09/15 Treatment in Route:22gLH--4 baby ASA, 4mg zofran, 1 nitro Response to Treatment: Misc. Issues:HX COPD, Stroke, 4Laat Normal [facility] Procalcitoninon 08-26-2023 Procalcitonin .07 ng/mL Normal .00-.50 [facility] Comment on above: Result Comment: <0.5 [...] to 24 hours. Performed By: #### 2 [id number] #### [facility] [address] [place] [address] Troponin 0 Hr.on 08-26-2023 Troponin 3.60 pg/mL Low 10.10-27.1 0 [facility] Comment on above: Result Comment: The 95% CI (Confidence Interval) PPV (Positive Predictive Value) for myocardial infarction in females is 38 pg/mL, in males 51 pg/mL. The results should be used in conjunction with clinical conditions of myocardial infarction. (Access High Sensitivity Troponin I Instructions For Use, Kip Tarsha, November 2017) Performed By: #### 1 [id number] #### [facility] [address] [place] [address] Troponin 1 Hr.on 08-26-2023 Troponin 3.90 pg/mL Low 10.10-27.1 0 [facility] Comment on above: Order Comment: due @ 8939 Result Comment: The 95% CI (Confidence Interval) PPV (Positive Predictive Value) for myocardial infarction in females is 38 pg/mL, in males 51 pg/mL. The results should be used in conjunction with clinical conditions of myocardial infarction. (Access High Sensitivity Troponin I Instructions For Use, [email or web address], November 2017) Performed By: #### 1 [id number] #### [facility] [address] [place] [address] Troponin 3 Hr.on 08-26-2023 Troponin 3.90 pg/mL Low 10.10-27.1 0 [facility] Comment on above: Result Comment: The 95% CI (Confidence Interval) PPV (Positive Predictive Value) for myocardial infarction in females is 38 pg/mL, in males 51 pg/mL. The results should be used in conjunction with clinical conditions of myocardial infarction. (Access High Sensitivity Troponin I Instructions For Use, [email or web address], November 2017) Performed By: #### 1 [id number] #### [facility] [address] [place] [address] Troponin 6 Hr.on 08-26-2023 Troponin 4.30 pg/mL Low 10.10-27.1 0 [facility] Comment on above: Result Comment: The 95% CI (Confidence Interval) PPV (Positive Predictive Value) for myocardial infarction in females is 38 pg/mL, in males 51 pg/mL. The results should be used in conjunction with clinical conditions of myocardial infarction. (Access High Sensitivity Troponin I Instructions For Use, [email or web address], November 2017) Performed By: #### 1 [id number] #### [facility] [address] [place] [address] UA with Cult Rflxon 08-26-19 24 Bacteria Auto Ql (U) 4+ /HPF Abnormal Trace [facility] Comment on above: Performed By: #### 4 [id number] #### [facility] [address] [place] [address] Bilirubin Ql (U) Negative Normal Negative [facility] Comment on above: Performed By: #### 4 [id number] #### [facility] [address] [place] [address] Clarity (U) Clear Normal Clear [facility] Comment on above: Performed By: #### 4 [id number] #### [facility] [address] [place] [address] Color (U) Light-Yellow Normal Yellow [facility] Comment on above: Result Comment: Micr oscopic readings are only performed on those samples that meet specific criteria set forth by [facility]. Performed By: #### 4 [id number] #### [facility] [address] [place] [address] Crystals.amorphous Computer assisted Ql (U) Present Abnormal [facility] Comment on above: Performed By: #### 4 [id number] #### [facility] [address] [place] [address] Epithelial cells.squamous Auto (Urine sed) [#/Area] 0-2 Normal 0-2 [facility] Comment on above: Performed By: #### 4 [id number] #### [facility] [address] [place] [address] Glucose Ql (U) Negative Normal Negative [facility] Comment on above: Performed By: #### 4 [id number] #### [facility] [address] [place] [address] Hemoglobin Auto test strip (U) [Mass/Vol] 1+ mg/dL Abnormal Negative [facility] Comment on above: Performed By: #### 4 [id number] #### [facility] [address] [place] [address] Ketones Auto test strip Ql (U) Negative Normal Negative [facility] Comment on above: Performed By: #### 4 [id number] #### [facility] [address] [place] [address] Leukocyte esterase Auto test strip Ql (U) 250 Chris/uL Abnormal Negative [facility] Comment on above: Performed By: #### 4 [id number] #### [facility] [address] [place] [address] Mucus Auto Ql (U) Trace Normal Negative [facility] Comment on above: Performed By: #### 4 [id number] #### [facility] [address] [place] [address] Nitrite Auto test strip Ql (U) 1+ mg/dL Abnormal Negative [facility] Comment on above: Performed By: #### 4 [id number] #### [facility] [address] [place] [address] pH (U) 7.5 [pH] Invalid Interpretation Code 5.0-9.0 [facility] Comment on above: Performed By: #### 4 [id number] #### [facility] [address] [place] [address] Protein Ql (U) Negative Normal Negative [facility] Comment on above: Performed By: #### 4 [id number] #### [facility] [address] [place] [address] RBC Ql (U) 0-3 Normal 0-3 [facility] Comment on above: Performed By: #### 4 [id number] #### [facility] [address] [place] [address] Specific gravity (U) [Rel density] 1.009 Invalid Interpretation Code 1.005-1.03 0 [facility] Comment on above: Performed By: #### 4 [id number] #### [facility] [address] [place] [address] Urobilinogen (U) [Mass/Vol] Negative Normal Negative [facility] Comment on above: Performed By: #### 4 [id number] #### [facility] [address] [place] [address] WBC Auto (Urine sed) [#/Area] 16-25 Abnormal 0-5 [facility] Comment on above: Performed By: #### 4 [id number] #### [facility] [address] [place] [address] Type of Urine collection method Clean Catch Normal [facility] Comment on above: Performed By: #### 4 [id number] #### [facility] [address] [place] [address] URINALYSISOrdered By: SYSTEM SYSTEM on 08-26-2023 Bacteria Auto Ql (U) 4+ /HPF Invalid Interpretation Code Trace/HPF [facility] UA Auto SS Bilirubin Ql (U) Negative Normal Negativemg /dL [facility] UA Auto SS Clarity (U) Clear (08/26/23 5:52 PM) Normal Clear [facility] UA Auto SS Color (U) Light-Yellow 1 (08/26/23 5:52 PM) Normal Yellow [facility] UA Auto SS Comment on above: Interpretive Data: M icroscopic readings are only performed on those samples that meet specific criteria set forth by [facility]. Crystals.amorphous Computer assisted Ql (U) Present [...] Urobilinogen (U) [Mass/Vol] Negative Normal Negativemg /dL [facility] UA Auto SS WBC Auto (Urine sed) [#/Area] 16-25 graded/HPF Invalid Interpretation Code 0-5graded/ HPF [facility] UA Auto SS URINALYSISOrdered By: Nava Horton on 08-26-2023 UA Spec Desc Clean Catch (08/26/23 5:52 PM) Normal [facility] UA Auto SS XR Chest Single Viewon [...] mGy = n/a DAP = n/a Normal [facility] eGFRon 08-26-2023 eGFR 59 mL/min/1.73 m2 Normal >=59 [facility] Comment on above: Order Comment: Order added by Discern Expert. Performed By: #### 1 [id number] #### [facility] [address] [place] [address] Physician Orderon 08-20-2023 Physician Order [id number]#1.00TIFF Normal [facility] XR knee LT 2Von 01-31-2023 XR knee LT 2V [facility] [place] [address] [place] [address] XRay Report Signed Patient: Nicole Lomeli MR#: [id number] : 1950 Acct:[id number] Age/Sex: 72 / F ADM Date: 01/31/23 Loc: ICXD [facility]: Parris Guzman DO Copies to: [...] Tafoya Jr., D.OMichael01/31/2023 2:49 PM Dictation Location: [place] [address] Transcribed By: [facility] 01/31/23 1449 Dictated By: Eddy Tafoya Jr, DO 01/31/23 1448 Signed By: 01/31/23 1449 Normal [facility] XR knee LT 2Von 01-18-2023 XR knee LT 2V [facility] [place] [address] XRay Report Signed Patient: Nicole Lomeli MR#: [id number] : 1950 Acct:[id number] Age/Sex: 72 / F ADM Date: 01/17/23 Loc: ER Room: Type: [facility] ER Attending Dr: Copies to: Cheko Rolon Jr, MD Ordering Provider: Cheko Rolon Jr, MD Date of Service: 01/17/23 XR/XR knee LT 2V: fall, large anterior knee lac ([id number]) XR/XR femur LT 2V*: fall, large anterior knee lac ([id number]) XR/XR tibia fibula LT 2V*: fall, large [...] dimension. Impression dictated by: Eddy Tafoya Jr., D.O.01/18/2023 9:01 AM Dictation Location: [place] [address] Transcribed By: [facility] 01/18/23 0901 Dictated By: Eddy Tafoya Jr, DO 01/18/23 0859 Signed By: 01/18/2301 Normal [facility] Activated partial thrombopla stin time (aPTT) in platelet poor plasma by coagulation aOrdered By: Cheko Rolon on 01-17-2023 aPTT Coag (PPP) [Time] 26.8 s 25.1-36.5 [facility] Comment on above: A hematocrit value g reater than 55% may lead to inaccurate results in coagulation testing. Patients having hematocrit values >55% require a special collection tube for coagulation studies. Please contact the laboratory at [phone] for redraw instructions. Alanine aminotransferase [En zymatic activity/volume] in Serum or PlasmaOrdered By: Cheko Rolon on 01-17-2023 ALT [Catalytic activity/Vol] 6 U/L Low 7-52 [facility] Comment on above: Performed By: #### C BC, CMP, PP #### [facility] [address] [place] [address] Albumin [Mass/volume] in Ser um or Plasma by Bromocresol green (BCG) dye binding methoOrdered By: Cheko Rolon on 01-17-2023 Albumin BCG dye [Mass/Vol] 3.7 g/dL 3.5-5.7 [facility] Alkaline phosphatase [Enzyma tic activity/volume] in Serum or PlasmaOrdered By: Cheko Rolon on 01-17-2023 ALP [Catalytic activity/Vol] 79 U/L Normal 34-104 [facility] Comment on above: Performed By: #### C BC, CMP, PP #### [address] Aspartate aminotransferase [ Enzymatic activity/volume] in Serum or PlasmaOrdered By: Cheko Rolon on 01-17-2023 AST [Catalytic activity/Vol] 18 U/L Normal 13-39 [facility] Comment on above: Performed By: #### C BC, CMP, PP #### [address] Automated basophil %Ordered By: Cheko Rolon on 01-17-2023 Basophils/100 WBC (Bld) 0.3 % Normal . [facility] Comment on above: Performed By: #### C BC, CMP, PP #### [address] Automated basophil countOrde red By: Cheko Rolon on 01-17-2023 Basophils (Bld) [#/Vol] 0.0 10*3/uL Normal 0.0-0.2 [facility] Comment on above: Result Comment: PERF ORMED BY: [place] [address] PATHOLOGIST GARMENT LOOPER GURINDER DICK M.D. Performed By: #### C BC, CMP, PP #### [address] Automated blood monocyte cou ntOrdered By: Cheko Rolon on 01-17-2023 Monocytes (Bld) [#/Vol] 0.8 10*3/uL Normal 0.0-0.8 [facility] Comment on above: Performed By: #### C BC, CMP, PP #### [address] Automated eosinophil %Ordere d By: Cheko Rolon on 01-17-2023 Eosinophils/100 WBC (Bld) 2.9 % Normal . [facility] Comment on above: Performed By: #### C TUNDE CMP, PP #### [address] Automated eosinophil countOr dered By: Cheko Rolon on 01-17-2023 Eosinophils (Bld) [#/Vol] 0.3 10*3/uL Normal 0.0-0.45 [facility] Comment on above: Performed By: #### C TUNDE CMP, PP #### [address] Automated monocyte %Ordered By: Cheko Rolon on 01-17-2023 Monocytes/100 WBC (Bld) 9.0 % Normal . [facility] Comment on above: Performed By: #### C TUNDE CMP, PP #### [address] Automated neutrophil %Ordere d By: Cheko Rolon on 01-17-2023 Neutrophils/100 WBC (Bld) 49.6 % Normal . [facility] Comment on above: Performed By: #### C TUNDE CMP, PP #### [address] Bilirubin.total [Mass/volume ] in Serum or PlasmaOrdered By: Cheko Rolon on 01-17-2023 Bilirubin [Mass/Vol] 0.3 mg/dL Normal 0.3-1.0 [facility] Comment on above: Performed By: #### C TUNDE CMP, PP #### [address] Calcium [Mass/volume] in Ser um or PlasmaOrdered By: Cheko Rolon on 01-17-2023 Calcium [Mass/Vol] 9.4 mg/dL Normal 8.6-10.3 [facility] Comment on above: Performed By: #### C BC CMP, PP #### [address] Carbon dioxide, total [Moles /volume] in Serum or PlasmaOrdered By: Cheko Rolon on 01-17-2023 CO2 [Moles/Vol] 26.7 mmol/L Normal 21.0-31.0 [facility] Comment on above: Performed By: #### C TUNDE CMP, PP #### [address] Chloride [Moles/volume] in S ger or PlasmaOrdered By: Cheko Rolon on 01-17-2023 Chloride [Moles/Vol] 106 mmol/L Normal 98-107 [facility] Comment on above: Performed By: #### C BC CMP, PP #### [address] Coagulation Profileon 2022 aPTT Coag (Bld) [Time] 26.8 s Normal 25.1-36.5 [facility] Comment on above: Result Comment: A he matocrit value greater than 55% may lead to inaccurate results in coagulation testing. Patients having hematocrit values >55% require a special collection tube for coagulation studies. Please contact the laboratory at [phone] for redraw instructions. PERFORMED BY: [place] [address] PATHOLOGIST GARMENT LOOPER GURINDER DICK M.D. Performed By: #### C TUNDE CMP, PP #### [address] Complete Blood Count Auto Di ffon 01-17-2023 Mean Corpuscular HGB Conc 33.0 g/dL Normal 32.0-35.0 [facility] Comment on above: Performed By: #### C TUNDE CMP, PP #### [address] Monocytes/100 WBC (Bld) 18.46 % Normal 0.00-20.00 [facility] Comment on above: Performed By: #### C TUNDE CMP, PP #### [address] NRBC% 0.0 /100{WBC} Normal 0-0.5 [facility] Comment on above: Performed By: #### C BC CMP, PP #### [address] Comprehensive Metabolic Pane rahel 01-17-2023 Albumin [Mass/Vol] 3.7 g/dL Normal 3.5-5.7 [facility] Comment on above: Performed By: #### C TUNDE CMP, PP #### [address] Creatinine Clr Calc Pharmacy 60.75 Normal [facility] Comment on above: Result Comment: PERF ORMED BY: [place] [address] PATHOLOGIST GARMENT LOOPER GURINDER DICK M.D. Performed By: #### C TUNDE CMP, PP #### [address] GFR/1.73 sq M.predicted MDRD (S/P/Bld) [Vol rate/Area] mL/min/{1.73_m2} Normal [facility] Comment on above: Performed By: #### C TUNDE CMP, PP #### [address] Creatinine [Mass/volume] in Serum or PlasmaOrdered By: Cheko Rolon on 01-17-2023 Creatinine [Mass/Vol] 0.77 mg/dL Normal 0.60-1.20 [facility] Comment on above: Performed By: #### C BC CMP, PP #### [address] Erythrocyte distribution wid th [Ratio] by Automated countOrdered By: Cheko Rolon on 01-17-2023 Erythrocyte distribution width (RBC) [Ratio] 14.5 % Normal 11.9-15.3 [facility] Comment on above: Performed By: #### C BC CMP, PP #### [address] Erythrocytes [#/volume] in B lood by Automated countOrdered By: Cheko Rolon on 01-17-2023 RBC (Bld) [#/Vol] 3.72 10*6/uL Normal 3.60-5.00 [facility] Comment on above: Performed By: #### C BC, CMP, PP #### [facility] [address] Glucose [Mass/volume] in Ser um or PlasmaOrdered By: Cheko Rolon on 01-17-2023 Glucose [Mass/Vol] 119 mg/dL High 70-100 [facility] Comment on above: ADA recommended refe rence rangeRandom Glucose Reference Range is dependent on time and content of last meal. Glucose of more than 200 mg/dL in a nonstressed, ambulatory subject supports the diagnosis of Diabetes Mellitus. Result Comment: [place] om Glucose Reference Range is dependent on time and content of last meal. Glucose of more than 200 mg/dL in a nonstressed, ambulatory subject supports the diagnosis of Diabetes Mellitus. ADA recommended reference range Performed By: #### C JONATHAN GRIFFITHS, PP #### [address] Hematocrit [Volume Fraction] of Blood by Automated countOrdered By: Cheko Rolon on 01-17-2023 Hematocrit (Bld) [Volume fraction] 34.9 % Normal 34.0-46.4 [facility] Comment on above: Performed By: #### C JONATHAN GRIFFITHS, PP #### [address] Hemoglobin [Mass/volume] in BloodOrdered By: Cheko Rolon on 01-17-2023 Hemoglobin (Bld) [Mass/Vol] 11.5 g/dL Low 11.8-15.4 [facility] Comment on above: Performed By: #### C JONATHAN GRIFFITHS, PP #### [address] INR in Platelet poor plasma by Coagulation assayOrdered By: Cheko Rolon on 01-17-2023 INR Coag (PPP) [Relative time] 1.0 {INR} Normal [facility] Comment on above: INR Therapeutic Rang e [...] By: #### C JONATHAN GRIFFITHS, PP #### [address] Leukocytes [#/volume] correc jimena for nucleated erythrocytes in Blood by Automated counOrdered By: Cheko Rolon on 01-17-2023 WBC corrected for nucl RBC Auto (Bld) [#/Vol] 8.7 10*3/uL 3.8-11.6 [facility] Leukocytes [#/volume] in Blo od by Automated countOrdered By: Cheko Rolon on 01-17-2023 WBC (Bld) [#/Vol] 8.7 10*3/uL Normal 3.8-11.6 [facility] Comment on above: Performed By: #### C JONATHAN GRIFFITHS, PP #### [place] [address] [place] Lymphocytes [#/volume] in Bl ood by Automated countOrdered By: Cheko Rolon on 01-17-2023 Lymphocytes (Bld) [#/Vol] 3.3 10*3/uL Normal 1.00-4.8 [facility] Comment on above: Performed By: #### C JONATHAN GRIFFITHS, PP #### [place] [address] [place] Lymphocytes/100 leukocytes i n Blood by Automated countOrdered By: Cheko Rolon on 01-17-2023 Lymphocytes/100 WBC (Bld) 38.2 % Normal . [facility] Comment on above: Performed By: #### C JONATHAN GRIFFITHS, PP #### [place] [address] [place] MCH [Entitic mass] by Automa jimena countOrdered By: Cheko Rolon on 01-17-2023 MCH (RBC) [Entitic mass] 31.0 pg Normal 24.7-34.3 [facility] Comment on above: Performed By: #### C JONATHAN GRIFFITHS, PP #### [facility] [address] [place] [address] MCHC Auto (RBC) [Mass/Vol]Or dered By: Cheko Rolon on 01-17-2023 MCHC (RBC) [Mass/Vol] 33.0 g/dL 32.0-35.0 [facility] MCV [Entitic volume] by Auto mated countOrdered By: Cheko Rolon on 01-17-2023 MCV (RBC) [Entitic vol] 93.8 fL Normal 80-100 [facility] Comment on above: Performed By: #### C JONATHAN GRIFFITHS, PP #### [facility] [address] [place] [address] Monocyte distribution width [Entitic volume] in Blood by AutomatedOrdered By: Cheko Rolon on 01-17-2023 Monocyte distribution width Auto (Bld) [Entitic vol] 18.46 % 0.00-20.00 [facility] Neutrophils [#/volume] in Bl ood by Automated countOrdered By: Cheko Rolon on 01-17-2023 Neutrophils (Bld) [#/Vol] 4.3 10*3/uL Normal 1.8-7.7 [facility] Comment on above: Performed By: #### C JONATHAN GRIFFITHS, PP #### [facility] [address] [place] [address] No Panel InformationOrdered By: Cheko Rolon on 01-17-2023 Estimated GFR (CKD-EPI) > 60.0 mL/Min [facility] Creatinine Clearance (Chem 60.75 [facility] Nucleated erythrocytes [Pres ence] in Blood by Automated countOrdered By: Cheko Rolon on 01-17-2023 Nucleated RBC Auto Ql (Bld) 0.0 /100{WBC} 0-0.5 [facility] Platelet mean volume [Entiti c volume] in Blood by Automated countOrdered By: Cheko Rolon on 01-17-2023 Platelet mean volume (Bld) [Entitic vol] 8.3 fL Normal 6.3-10.7 [facility] Comment on above: Performed By: #### C BC, CMP, PP #### [facility] [address] Platelets [#/volume] in Bloo d by Automated countOrdered By: Cheko Rolon on 01-17-2023 Platelets (Bld) [#/Vol] 219 10*3/uL Normal 150-450 [facility] Comment on above: Performed By: #### C TUNDE CMP, PP #### [address] Potassium [Moles/volume] in Serum or PlasmaOrdered By: Cheko Rolon on 01-17-2023 Potassium [Moles/Vol] 3.4 mmol/L Low 3.5-5.1 [facility] Comment on above: Performed By: #### C JONATHAN GRIFFITHS, PP #### [address] Protein [Mass/volume] in Ser um or PlasmaOrdered By: Cheko Rolon on 01-17-2023 Protein [Mass/Vol] 6.2 g/dL Low 6.4-8.9 [facility] Comment on above: Performed By: #### C JONATHAN GRIFFITHS, PP #### [address] Prothrombin time (PT)Ordered By: Cheko Rolon on 01-17-2023 PT Coag (PPP) [Time] 11.8 s Normal 9.0-12.9 [facility] Comment on above: A hematocrit value g reater than 55% may lead to inaccurate results in coagulation testing. Patients having hematocrit values >55% require a special collection tube for coagulation studies. Please contact the laboratory at [phone] for redraw instructions. Result Comment: A he matocrit value greater than 55% may lead to inaccurate results in coagulation testing. Patients having hematocrit values >55% require a special collection tube for coagulation studies. Please contact the laboratory at [phone] for redraw instructions. Performed By: #### C BC, CMP, PP #### [address] Serum globulin measurement b y calculation (mass/volume)Ordered By: Cheko Rolon on 01-17-2023 Globulin (S) [Mass/Vol] 2.5 g/dL [facility] Comment on above: Performed By: #### C JONATHAN GRIFFITHS, PP #### [address] Serum or plasma albumin/glob ulin mass ratioOrdered By: Cheko Rolon on 01-17-2023 Albumin/Globulin [Mass ratio] 1.5 {ratio} [facility] Comment on above: Performed By: #### C JONATHAN GRIFFITHS, PP #### [address] Serum or plasma anion gap de terminationOrdered By: Cheko Rolon on 01-17-2023 Anion gap [Moles/Vol] 9.7 mmol/L Normal 6.0-15.0 [facility] Comment on above: Performed By: #### C JONATHAN GRIFFITHS, PP #### [address] Sodium [Moles/volume] in Ser um or PlasmaOrdered By: Cheko Rolon on 01-17-2023 Sodium [Moles/Vol] 139 mmol/L Normal 136-145 [facility] Comment on above: Performed By: #### C JONATHAN GRIFFITHS, PP #### [address] Urea nitrogen [Mass/volume] in Serum or PlasmaOrdered By: Cheko Rolon on 01-17-2023 Urea nitrogen [Mass/Vol] 11 mg/dL Normal 7-25 [facility] Comment on above: Performed By: #### C JONATHAN GRIFFITHS, PP #### [address] URINALYSISOrdered By: Shelton Arreguin on 12-18-2022 Bacteria [...] (Urine sed) [#/Area] 3-4 /HPF Normal 0-2/HPF [facility] UA Aut o SS Glucose Test strip (U) [Mass/Vol] Negative (12/18/22 12:00 PM) Normal Negative [facility] UA Auto SS Hemoglobin Ql (U) Trace *ABN* (12/18/22 12:00 PM) Invalid Interpretation Code Negative [facility] UA Auto SS Ketones (U) [Mass/Vol] Negative (12/18/22 12:00 PM) Normal Negative [facility] UA Auto SS Eskridge.plasma/Eskridge .RBC (Bld) [Mass ratio] 0-3 /HPF Normal 0-3/HPF [facility] UA Auto SS Nitrite Ql (U) Negative (12/18/22 12:00 PM) Normal Negative [facility] UA Auto SS pH (U) 5.5 *NA* (12/18/22 12:00 PM) Invalid Interpretation Code 5.0 - 9.0 [facility] UA Auto SS Protein (U) [Mass/Vol] Negative (12/18/22 12:00 PM) Normal Negative [facility] UA Auto SS Specific gravity (U) [Rel density] 1.015 *NA* (12/18/22 12:00 PM) Invalid Interpretation Code 1.005 - 1.030 [facility] UA Auto SS UA Spec Desc Clean Catch (12/18/22 12:00 PM) Normal [facility] UA Auto SS Urobilinogen Qn (U) 0.7846704 {Gilma'U}/dL Normal 0.0 - 1.0 EU/dL [facility] UA Auto SS WBC Auto Ql (U) Negative (12/18/22 12:00 PM) Normal Negative [facility] UA Auto SS WBC LM.HPF (Urine sed) [#/Area] 0-5 /HPF Normal 0-5/HPF [facility] UA Auto SS CHEMISTRYOrdered By: SYSTEM SYSTEM on 11-27-2022 Troponin I.cardiac [Mass/Vol] 5.80 pg/mL Low 10.10 - 27.10 pg/mL [facility] Remisol Troponin I.cardiac [Mass/Vol] 8.70 pg/mL Low 10.10 - 27.10 pg/mL [facility] Remisol Troponin I.cardiac [Mass/Vol] 9.20 pg/mL Low 10.10 - 27.10 pg/mL [facility] Remisol CHEMISTRYOrdered By: SYSTEM SYSTEM on 11-26-2022 Anion gap [Moles/Vol] 10 mmol/L Normal 6 - 16 mEq/L [facility] Remisol Calcium [Mass/Vol] 9.3 mg/dL Normal 8.9 - 11. 1 mg/dL [facility] Remisol Chloride [Moles/Vol] 101 mmol/L Normal 101 - 1 11 mmol/L [facility] Remisol CO2 [Moles/Vol] 29 mmol/L Normal 21 - 31 mmol/L [facility] Remisol Creatinine [Mass/Vol] 0.7 mg/dL Normal 0.5 - 1.3 mg/dL [facility] Remisol GFR/1.73 sq M.predicted among non-blacks MDRD (S/P/Bld) [Vol rate/Area] 91 mL/min/1.73 m2 Normal >=59mL/min /1.73 m2 [facility] Chem S Glucose [Mass/Vol] 147 mg/dL Normal 55 - 199 mg/dL [facility] Remisol Potassium [Moles/Vol] 4.0 mmol/L Normal 3.5 - 5.3 mmol/L [facility] Remisol Sodium [Moles/Vol] 136 mmol/L Normal 135 - 145 mmol/L [facility] Remisol Urea nitrogen [Mass/Vol] 15 mg/dL Normal 5 - 21 mg/dL [facility] Remisol Urea nitrogen/Creatinine [Mass ratio] 21 mg/mg High 10 - 20 [facility] Remisol COAGULATIONOrdered By: Mandie aHnd on 11-26-2022 aPTT Coag (PPP) [Time] 30.2 s Normal 25.1 - 36.5 second(s) [facility] Auto Coag INR Coag (PPP) [Relative time] 1.2 {INR} Invalid Interpretation Code [facility] Auto Coag PT Coag (PPP) [Time] 14.0 s High 9.4 - 1 2.5 second(s) [facility] Auto Coag HEMATOLOGYOrdered By: Deon Trent on 11-26-2022 Band form neutrophils/100 WBC (Bld) 8 % Normal 0 - 10 % [facility] HemeManSS Basophils/100 WBC (Bld) 0 % Normal 0 - 2 % [facility] HemeManSS Basophils/Leukocytes Manual cnt (Bld) [Pure # fraction] 0.0 E9/L Normal 0.0 - 0.2 E9/L [facility] HemeManSS Eosinophils/100 WBC (Bld) 0 % Normal 0 - 8 % [facility] HemeManSS Eosinophils/Leukocytes Manual cnt (Bld) [Pure # fraction] 0.0 E9/L Normal 0.0 - 0.5 E9/L [facility] HemeManSS Erythrocyte distribution width (RBC) [Ratio] 13.5 [...] (Bld) [Interp] Normal (11/26/22 5:56 AM) Normal [facility] HemeManSS Neutrophils/Leukocytes Auto (Bld) [Pure # fraction] [...] 13.5 E9/L High 4.0 - 11.0 E9/L [facility] HemeAutoSS CHEMISTRYOrdered By: SYSTEM SYSTEM on 11-25-2022 Albumin [...] 91 mL/min/1.73 m2 Normal >=59mL/min /1.73 m2 [facility] Chem S Globulin (S) [Mass/Vol] 3.7 g/dL Normal 1.4 - 4.0 gm/dL FT Remisol Glucose [Mass/Vol] 99 mg/dL Normal 55 - 199 mg/dL [facility] Remisol Potassium [Moles/Vol] 3.7 mmol/L Normal 3.5 - 5.3 mmol/L [facility] Remisol Procalcitonin 0.36 ng/mL Normal 0.00 - 0.50 ng/mL [facility] Remisol Protein [Mass/Vol] 6.9 g/dL Normal 6.0 - 7.8 gm/dL [facility] Remisol Sodium [Moles/Vol] 135 mmol/L Normal 135 - 145 mmol/L [facility] Remisol Urea nitrogen [Mass/Vol] 10 mg/dL Normal 5 - 21 mg/dL [facility] Remisol Urea nitrogen/Creatinine [Mass ratio] 14 mg/mg Normal 10 - 20 [facility] Remisol CHEMISTRYOrdered By: Hemalatha Pascual on 11-25-2022 Natriuretic peptide B (Bld) [Mass/Vol] 53 pg/mL Normal 5 - 80 pg/mL [facility] HemeManSS COAGULATIONOrdered By: Gab Robb on 11-25-2022 aPTT Coag (PPP) [Time] 33.0 s Normal 25.1 - 36.5 second(s) [facility] Auto Coag INR Coag (PPP) [Relative time] 1.2 {INR} Invalid Interpretation Code FT Auto Coag PT Coag (PPP) [Time] 13.7 s High 9.4 - 1 2.5 second(s) FT Auto Coag FT Blood GasesOrdered By: Derik Baires on 11-25-2022 a/A Ratio Art 35.40 % Normal >=0.80% FT Resp Auto SS AaDO2 Art 109.3 mm[Hg] High 5.0 - 15.0 mmHg [facility] Resp Auto SS Allens Test Positive (11/25/22 4:34 PM) Normal [facility] Resp Auto SS Base Excess Arterial 1.7 mmol/L Low >=2.8mm ol/ L [facility] Resp Auto SS cCa2+ Art 5.23 mg/dL Normal 4.40 - 5.30 mg/dL [facility] Resp Auto SS cCl- Art 100.0 mmol/L Low 101.0 - 111.0 mmol/L [facility] Resp Auto SS cGlu Art 98 mg/dL Normal 55 - 99 mg/dL [facility] Resp Auto SS cK+ Art 3.6 mmol/L Normal 3.5 - 5.3 mmol/L [facility] Resp Auto SS cLac Art 0.8 mmol/L Normal 0.5 - 2.2 mmol/L [facility] 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 137.0 mmol/L Normal 135.0 - 145.0 mmol/L [facility] Resp Auto SS Device Cannula (11/25/22 4:34 PM) Normal [facility] Resp Auto SS Drawn by DCC Invalid Interpretation Code [facility] Resp Auto SS FCOHb Art 1.8 % Normal 1.5 - 4.9 % [facility] Resp Auto SS FIO2 BG 32 Invalid Interpretation Code [facility] Resp Auto SS FMetHb Art 0.2 % Normal 0.0 - 1.9 % [facility] Resp Auto SS FO2Hb Art 90.0 % Low 92.0 - 100.0 % [facility] Resp Auto SS HCO3 (Bld) [Moles/Vol] 25.8 mmol/L Normal 22.0 - 26.0 mmol/L [facility] Resp Auto SS Hemoglobin (Bld) [Mass/Vol] 11.3 g/dL Low 12.0 - 16.0 gm/dL [facility] Resp Auto SS P CO2 Arterial 47.7 mm[Hg] High 35.0 - 45.0 mmHg [facility] Resp Auto SS P O2 Arterial 59.9 mm[Hg] Low 80.0 - 100.0 mmHg [facility] Resp Auto SS pH Arterial 7.370 Normal 7.350 - 7.450 [facility] Resp Auto SS Sample Site L Radial (11/25/22 4:34 PM) Normal [facility] Resp Auto SS Sample Type Arterial Draw (11/25/22 4:34 PM) Normal [facility] Resp Auto SS HEMATOLOGYOrdered By: SYSTEM SYSTEM on 11-25-2022 Basophils/100 WBC (Bld) 0.3 % Normal 0.0 - 2.0 % [facility] HemeAutoSS Basophils/Leukocytes Auto (Bld) [Pure # fraction] 0.1 E9/L Normal 0.0 - 0.2 E9/L [facility] HemeAutoSS Eosinophils/100 WBC (Bld) 0.5 % Normal 0.0 - 8.0 % [facility] [...] 3.6 E12/L Low 4.3 - 5.9 E12/L [facility] HemeAutoSS WBC corrected for nucl RBC Auto (Bld) [#/Vol] 17.3 E9/L High 4.0 - 11.0 E9/L [facility] HemeAutoSS Laboratory - Microbiology an d Antimicrobial susceptibilityOrdered By: Pau Ward on 11-25-2022 Bacteria identified Respiratory culture Nom (Sput) 1+ Normal upper respiratory reji isolated [facility] No Panel InformationOrdered By: Pau Ward on 11-25-2022 GS 2+ White Blood Cells Occasional Gram Positive Cocci [facility] CHEMISTRYOrdered By: SYSTEM SYSTEM on 08-17-2022 Anion gap [Moles/Vol] 8 mmol/L Normal 6 - 16 mEq/L [facility] Remisol Calcium [Mass/Vol] 8.8 mg/dL Low 8.9 - 11. 1 mg/dL FT Remisol Chloride [Moles/Vol] 104 mmol/L Normal 101 - 1 11 mmol/L [facility] Remisol CO2 [Moles/Vol] 28 mmol/L Normal 21 - 31 mmol/L [facility] Remisol Creatinine [Mass/Vol] 0.8 mg/dL Normal 0.5 - 1.3 mg/dL [facility] Remisol GFR/1.73 sq M.predicted among non-blacks MDRD (S/P/Bld) [Vol rate/Area] 78 mL/min/1.73 m2 Normal >=59mL/min /1.73 m2 [facility] Chem S Glucose [Mass/Vol] 162 mg/dL Normal 55 - 199 mg/dL FT Remisol Potassium [Moles/Vol] 4.1 mmol/L Normal 3.5 - 5.3 mmol/L [facility] Remisol Sodium [Moles/Vol] 136 mmol/L Normal 135 - 145 mmol/L [facility] Remisol Urea nitrogen [Mass/Vol] 17 mg/dL Normal 5 - 21 mg/dL [facility] Remisol Urea nitrogen/Creatinine [Mass ratio] 21 mg/mg High 10 - 20 [facility] Remisol HEMATOLOGYOrdered By: iLive SYSTEM on 08-17-2022 Basophils/100 WBC (Bld) 0.1 % Normal 0.0 - 2.0 % [facility] HemeAutoSS Basophils/Leukocytes Auto (Bld) [Pure # fraction] [...] 244.0 E9/L Normal 150.0 - 500.0 E9/L [facility] HemeAutoSS RBC (Bld) [#/Vol] 4.1 E12/L Low 4.3 - 5.9 E12/L [facility] HemeAutoSS WBC corrected for nucl RBC Auto (Bld) [#/Vol] 11.9 E9/L High 4.0 - 11.0 E9/L FT HemeAutoSS COAGULATIONOrdered By: Yoan Lala on 08-16-2022 [...] 13 mmol/L Normal 6 - 16 mEq/L FT Remisol Calcium [Mass/Vol] 8.8 mg/dL Low 8.9 - 11. 1 mg/dL [facility] Remisol Chloride [Moles/Vol] 100 mmol/L Low 101 - 1 11 mmol/L [facility] Remisol CO2 [Moles/Vol] 24 mmol/L Normal 21 - 31 mmol/L [facility] Remisol Glucose [Mass/Vol] 109 mg/dL Normal 55 - 199 mg/dL [facility] Remisol Lactate [Mass/Vol] 1.1 mmol/L Normal 0.5 - 2.2 mmol/L [facility] Lipase [Catalytic activity/Vol] 26 U/L Normal 13 - 58 unit/L [facility]isol Potassium [Moles/Vol] 3.5 mmol/L Normal 3.5 - 5.3 mmol/L [facility] Procalcitonin 0.11 ng/mL Normal 0.00 - [...] 0.2 mg/dL Normal 0.1 - 0.4 mg/dL [facility] Remisol Bilirubin.indirect [Mass or moles/Vol] 0.5 mg/dL Normal 0.1 - 0.9 mg/dL [facility] Remisol Creatinine [Mass/Vol] 0.9 mg/dL Normal 0.5 - 1.3 mg/dL [facility] Remisol Globulin (S) [Mass/Vol] 3.0 g/dL Normal 1.4 - 4.0 gm/dL [facility] Remisol Protein [Mass/Vol] 6.6 g/dL Normal 6.0 - 7.8 gm/dL [facility] Remisol Urea nitrogen [Mass/Vol] 11 mg/dL Normal 5 - 21 mg/dL [facility] Remisol Urea nitrogen/Creatinine [Mass ratio] 12 mg/mg Normal 10 - 20 [facility] Remisol CHEMISTRYOrdered By: Natalio Hand on 08-15-2022 GFR/1.73 sq M.predicted among non-blacks MDRD (S/P/Bld) [Vol rate/Area] 68 mL/min/1.73 m2 Normal >=59mL/min /1.73 m2 [facility] Chem S CHEMISTRYOrdered By: Felicia Robb on 08-15-2022 Natriuretic peptide B (Bld) [Mass/Vol] 17 pg/mL Normal 5 - 80 pg/mL [facility] HemeManSS COAGULATIONOrdered By: Linette Ward on 08-15-2022 aPTT Coag (PPP) [Time] 32.2 s Normal 25.1 - 36.5 second(s) FT Auto Coag INR Coag (PPP) [Relative time] 1.1 {INR} Invalid Interpretation Code FT Auto Coag PT Coag (PPP) [Time] 11.9 s Normal 9.4 - 1 2.5 second(s) FT Auto Coag FT Blood GasesOrdered By: Andare Garcia on 08-15-2022 a/A Ratio Art 60.60 % Normal >=0.80% [facility] Resp Auto SS AaDO2 Art 41.4 mm[Hg] High 5.0 - 15.0 mmHg FT Resp Auto SS Allens Test Positive (08/15/22 11:47 AM) Normal [facility] Resp Auto SS Base Excess Arterial 0.5 mmol/L Low >=2.8mm ol/ L FT Resp Auto SS cCa2+ Art 4.76 mg/dL Normal 4.40 - 5.30 mg/dL [facility] Resp Auto SS cCl- Art 102.0 mmol/L Normal 101.0 - 111.0 mmol/L [facility] Resp Auto SS cGlu Art 106 mg/dL High 55 - 99 mg/dL [facility] Resp Auto SS cK+ Art 3.7 mmol/L Normal 3.5 - 5.3 mmol/L [facility] Resp Auto SS cLac Art 0.8 mmol/L Normal 0.5 - 2.2 mmol/L [facility] 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 135.0 mmol/L Normal 135.0 - 145.0 mmol/L FT Resp Auto SS Drawn by TG Invalid Interpretation Code [facility] Resp Auto SS FCOHb Art 1.0 % Low 1.5 - 4.9 % [facility] Resp Auto SS FIO2 BG 21.0 Invalid Interpretation Code [facility] Resp Auto SS FMetHb Art 0.3 % Normal 0.0 - 1.9 % [facility] Resp Auto SS FO2Hb Art 93.0 % Normal 92.0 - 100.0 % [facility] Resp Auto SS HCO3 (Bld) [Moles/Vol] 24.8 mmol/L Normal 22.0 - 26.0 mmol/L FT Resp Auto SS Hemoglobin (Bld) [Mass/Vol] 12.8 g/dL Normal 12.0 - 16.0 gm/dL [facility] Resp Auto SS P CO2 Arterial 36.7 mm[Hg] Normal 35.0 - 45.0 mmHg [facility] Resp Auto SS P O2 Arterial 63.7 mm[Hg] Low 80.0 - 100.0 mmHg [facility] Resp Auto SS pH Arterial 7.434 Normal 7.350 - 7.450 [facility] Resp Auto SS Sample Site R Radial (08/15/22 11:47 AM) Normal [facility] Resp Auto SS Sample Type Arterial Draw (08/15/22 11:47 AM) Normal [facility] Resp Auto SS HEMATOLOGYOrdered By: SYSTEM SYSTEM on 08-15-2022 Basophils/100 WBC (Bld) 0.4 % Normal 0.0 - 2.0 % [facility] [...] 4.2 E12/L Low 4.3 - 5.9 E12/L [facility] HemeAutoSS WBC corrected for nucl RBC Auto (Bld) [#/Vol] 8.1 E9/L Normal 4.0 - 11.0 E9/L FT HemeAutoSS Laboratory - Microbiology an d Antimicrobial susceptibilityOrdered By: Debra Sykes on 08-15-2022 Bacteria identified Respiratory culture Nom (Sput) 1+ Normal upper respiratory reji isolated [facility] MICRO OTHER TESTSOrdered By: Pau Ward on 08-15-2022 Rapid COV Int NEG Ctl Pass (08/15/22 11:57 AM) Normal [facility] Man Sero Rapid COV Int POS Ctl Pass (08/15/22 11:57 AM) Normal [facility] Man Sero SARS-CoV+SARS-CoV-2 (COVID-19) Ag IA.rapid Ql (Resp) Not Detected (08/15/22 11:57 AM) Normal Not Detected [facility] Man Sero No Panel InformationOrdered By: Debra Sykes on 08-15-2022 GS 3+ White Blood Cells Occasional Gram Positive Cocci [facility] No Panel InformationOrdered By: ANGPROCESSSERVER MICROBIOLOGY on 08-15-2022 Blood Culture Charcoal No growth at 3 da ys. Final to follow at 7 days. [facility] Blood Culture Charcoal No growth at 3 da ys. Final to follow at 7 days. [facility] URINALYSISOrdered By: Wang Ward on 08-15-2022 [...] PM) Normal Negative [facility] UA Auto SS Eskridge.plasma/Eskridge .RBC (Bld) [Mass ratio] 0-3 /HPF Normal 0-3/HPF [facility] UA Auto SS Nitrite Ql (U) Negative (08/15/22 5:10 PM) Normal Negative [facility] UA Auto SS pH (U) 5.5 *NA* (08/15/22 5:10 PM) Invalid Interpretation Code 5.0 - 9.0 [facility] UA Auto SS Protein (U) [Mass/Vol] Negative (08/15/22 5:10 PM) Normal Negative [facility] UA Auto SS Specific gravity (U) [Rel density] 1.010 *NA* (08/15/22 5:10 PM) Invalid Interpretation Code 1.005 - 1.030 [facility] UA Auto SS UA Spec Desc Clean Catch (08/15/22 5:10 PM) Normal [facility] UA Auto SS Urobilinogen Qn (U) 0.7084023 {Gilma'U}/dL Normal 0.0 - 1.0 EU/dL [facility] UA Auto SS WBC Auto Ql (U) Negative (08/15/22 5:10 PM) Normal Negative [facility] UA Auto SS WBC LM.HPF (Urine sed) [#/Area] 0-5 /HPF Normal 0-5/HPF [facility] UA Auto SS STR cardiac stress/lexiscano n 04-20-2022 STR cardiac stress/lexiscan [facility] [employer] Other STR cardiac stress/lexiscan [facility] [employer] Other STR cardiac stress/lexiscan [address] [facility] [employer] Other STR cardiac stress/[place] [address] [employer] Other STR cardiac stress/lexiscan Cardiac Stress Test [employer] Other STR cardiac stress/lexiscan Signed [employer] Other STR cardiac stress/lexiscan Patient: Nicole Lomeli MR#: [id number] [employer] Other STR cardiac stress/lexiscan [id number] [employer] Other STR cardiac stress/lexiscan : 1950 Acct:[id number] [employer] Other STR cardiac stress/lexiscan Age/Sex: 71 / F ADM Date: 04/19/22 [employer] Other STR cardiac stress/lexiscan Loc: [place] Room: Type: [facility] [employer] Other STR cardiac stress/lexiscan Attending Dr: Parris Guzman DO [employer] Other STR cardiac stress/lexiscan Copies to: Chelsey Rader MD, [facility] [employer] Other STR cardiac stress/lexiscan [employer] Other STR cardiac stress/lexiscan Ordering Provider: Parris Guzman DO [employer] Other STR cardiac stress/lexiscan Date of Service: 04/19/22 [employer] Other STR cardiac stress/lexiscan STR/STR cardiac stress/lexiscan: Dyspnea on exertion;Exercise-induced [employer] Other STR cardiac stress/lexiscan tachycardia [employer] Other STR cardiac stress/lexiscan ORDERED BY: Parris Guzman DO [employer] Other STR cardiac stress/lexiscan A 71-year-old patient with chest pain. [employer] Other STR cardiac stress/lexiscan Resting ECG revealed normal sinus rhythm, heart rate 75 beats per minute. Resting blood pressure [employer] Other STR cardiac stress/lexiscan 162/99. [employer] Other STR cardiac stress/lexiscan Following intravenous administration of 400 mcg of Lexiscan over 10 seconds, no ischemic EKG changes [employer] Other STR cardiac stress/lexiscan were noted. The patient had no chest pain and no cardiac arrhythmias were seen. Cardiolite study [employer] Other STR cardiac stress/lexiscan followed. [employer] Other STR cardiac stress/lexiscan CONCLUSION: [employer] Other STR cardiac stress/lexiscan 1. No Lexiscan-induced ischemic EKG changes, chest pain or cardiac arrhythmias. [employer] Other STR cardiac stress/lexiscan 2. Cardiolite studies to be reported separately by nuclear cardiology. [employer] Other STR cardiac stress/lexiscan Transcribed By: NTS 04/20/22 1413 [employer] Other STR cardiac stress/lexiscan Dictated By: Chelsey Rader MD, FACC 04/20/22 1128 [employer] Other STR cardiac stress/lexiscan Signed By: [employer] Other STR cardiac stress/lexiscan 04/21/22 1141 [employer] Other COVID-19 Positive/NegativeOr dered By: Sangeetha Mares on 12-25-2021 SARS-CoV-2 (COVID-19) N gene SNEHA+probe Ql (Resp) Negative Negative [facility] Comment on above: Testing for SARS-CoV -2 by RT-PCR This test was developed and its performance characteristics determined by [facility] [employer] and validated at the [facility]. This test has not been FDA cleared [...] aPTT Coag (PPP) [Time] 33.3 s 25.1-36.5 [facility] Basophils Auto (Bld) [#/Vol] Ordered By: Sanegetha Mares on 11-08-2021 Basophils (Bld) [#/Vol] 0.0 10*3/uL 0.0-0.2 [facility] Basophils/100 WBC Auto (Bld) Ordered By: Sangeetha Mares on 11-08-2021 Basophils/100 WBC (Bld) 0.3 % . [facility] Blood hemoglobin measurement (mass/volume)Ordered By: Sangeetha Mares on 11-08-2021 Hemoglobin (Bld) [Mass/Vol] 13.5 g/dL 11.8-15.4 [facility] Blood leukocytes automated c ount (number/volume)Ordered By: Sangeetha Mares on 11-08-2021 WBC (Bld) [#/Vol] 7.7 10*3/uL 4.5-11.0 [facility] Creatinine and Glomerular fi ltration rate.predicted panel (S/P/Bld)Ordered By: Sangeetha Mares on 11-08-2021 Creatinine [Mass/Vol] 0.80 mg/dL 0.44-1.03 [facility] Eosinophils Auto (Bld) [#/Vo l]Ordered By: Sangeetha Mares on 11-08-2021 Eosinophils (Bld) [#/Vol] 0.1 10*3/uL 0.0-0.45 [facility] Eosinophils/100 WBC Auto (Bl d)Ordered By: Sangeetha Mares on 11-08-2021 Eosinophils/100 WBC (Bld) 1.7 % . [facility] Erythrocyte distribution wid th Auto (RBC) [Ratio]Ordered By: Sangeetha Mares on 11-08-2021 Erythrocyte distribution width (RBC) [Ratio] 13.7 % 11.9-15.3 [facility] Estimated glomerular filtrat ion rate (GFR) non- AmericanOrdered By: Sangeetha Mares on 11-08-2021 GFR/1.73 sq M.predicted among non-blacks MDRD (S/P/Bld) [Vol rate/Area] > 60 mL/Min [facility] Hematocrit Auto (Bld) [Volum e fraction]Ordered By: Sangeetha Mares on 11-08-2021 Hematocrit (Bld) [Volume fraction] 39.6 % 34.0-46.4 [facility] Laboratory - CoagulationOrde red By: Sangeetha Mares on 11-08-2021 PT Coag (PPP) [Time] 11.3 s 9.0-12.9 [facility] Laboratory - Hematology and Cell countsOrdered By: Sangeetha Mares on 11-08-2021 Nucleated RBC/100 WBC (Bld) [Ratio] 0.1 % 0-0.5 [facility] Lymphocytes Auto (Bld) [#/Vo l]Ordered By: Sangeetha Mares on 11-08-2021 Lymphocytes (Bld) [#/Vol] 1.8 10*3/uL 1.00-4.8 [facility] Lymphocytes/100 WBC Auto (Bl d)Ordered By: Sangeetha Mares on 11-08-2021 Lymphocytes/100 WBC (Bld) 22.9 % . [facility] MCH Auto (RBC) [Entitic mass ]Ordered By: Sangeetha Mares on 11-08-2021 MCH (RBC) [Entitic mass] 32.9 pg 24.7-34.3 [facility] MCHC Auto (RBC) [Mass/Vol]Or dered By: Sangeetha Mares on 11-08-2021 MCHC (RBC) [Mass/Vol] 34.0 g/dL 32.0-35.0 [facility] MCV Auto (RBC) [Entitic vol] Ordered By: Sangeetha Mares on 11-08-2021 MCV (RBC) [Entitic vol] 96.8 fL 80-100 [facility] Monocytes Auto (Bld) [#/Vol] Ordered By: Sangeetha Mares on 11-08-2021 Monocytes (Bld) [#/Vol] 0.5 10*3/uL 0.0-0.8 [facility] Monocytes/100 WBC Auto (Bld) Ordered By: Sangeetha Mares on 11-08-2021 Monocytes/100 WBC (Bld) 6.8 % . [facility] Neutrophils Auto (Bld) [#/Vo l]Ordered By: Sangeetha Mares on 11-08-2021 Neutrophils (Bld) [#/Vol] 5.2 10*3/uL 1.8-7.7 [facility] Neutrophils/100 WBC Auto (Bl d)Ordered By: Sangeetha Mares on 11-08-2021 Neutrophils/100 WBC (Bld) 68.3 % . [facility] No Panel InformationOrdered By: Sangeetha Mares on 11-08-2021 Estimated GFR () > 60 mL/Min [facility] Comment on above: GFR estimated refere nce range: According to KDOQI guidelines, <60 ml/min/1.73m2 is sufficient to diagnose a patient with chronic kidney disease. Pharmacy Creatinine Clearance (Chem N/A [facility] Platelet mean volume Auto (B ld) [Entitic vol]Ordered By: Sangeetha Mares on 11-08-2021 Platelet mean volume (Bld) [Entitic vol] 8.3 fL 6.3-10.7 [facility] Platelet poor plasma interna tional normalized ratio (INR) by coagulation assay (relatOrdered By: Sangeetha Mares on 11-08-2021 INR Coag (PPP) [Relative time] 1.0 {INR} [facility] Comment on above: INR Therapeutic Rang e [...] 11-08-2021 Platelets (Bld) [#/Vol] 258 10*3/uL 150-450 [facility] RBC Auto (Bld) [#/Vol]Ordere d By: Sangeetha Mares on 11-08-2021 RBC (Bld) [#/Vol] 4.09 10*6/uL 3.60-5.00 [facility] Serum or plasma calcium shamika urement (mass/volume)Ordered By: Sangeetha Mares on 11-08-2021 Calcium [Mass/Vol] 9.5 mg/dL 8.2-10.2 [facility] Serum or plasma chloride dodie surement (moles/volume)Ordered By: Sangeetha Mares on 11-08-2021 Chloride [Moles/Vol] 102 mmol/L 95-114 [facility] Serum or plasma glucose shamika urement (mass/volume)Ordered By: Sangeetha Mares on 11-08-2021 Glucose [Mass/Vol] 148 mg/dL 70-100 [facility] Comment on above: ADA recommended refe rence range Random Glucose Reference Range is dependent on time and content of last meal. Glucose of more than 200 mg/dL in a nonstressed, ambulatory subject supports the diagnosis of Diabetes Mellitus. Serum or plasma potassium me asurement (moles/volume)Ordered By: Sangeetha Mares on 11-08-2021 Potassium [Moles/Vol] 4.4 mmol/L 3.5-5.1 [facility] Serum or plasma sodium measu rement (moles/volume)Ordered By: Sangeetha Mares on 11-08-2021 Sodium [Moles/Vol] 138 mmol/L 136-146 [facility] Serum or plasma total carbon dioxide measurement (moles/volume)Ordered By: Sangeetha Mares on 11-08-2021 CO2 [Moles/Vol] 26.6 mmol/L 22.0-30.0 [facility] Serum or plasma urea nitroge n measurement (mass/volume)Ordered By: Sangeetha Mares on 11-08-2021 Urea nitrogen [Mass/Vol] 8 mg/dL 12-29 [facility] Creatinine (Bld) [Mass/Vol]O rdered By: Parris Guzman on 09-28-2021 Creatinine [Mass/Vol] 0.8 mg/dL 0.6-1.3 [facility] Comment on above: ER/ESD physician is notified/shown all ISTAT results. Critical values may be confirmed by laboratory testing if deemed necessary by ER attending doctor. No Panel InformationOrdered By: Parris Guzman on 09-28-2021 POC Estimated GFR > 60 [facility] Comment on above: GFR estimated refere nce range: According to KDOQI guidelines, <60 ml/min/1.73m2 is sufficient to diagnose a patient with chronic kidney disease. POC Estimated GFR Non- Amer > 60 [facility] Urinalysis - AUTOMATEDon Appearance (U) pale yellow [employer] Other Bilirubin Ql (U) Negative [employer] Other Color (U) yellow [employer] Other Glucose Ql (U) Negative [employer] Other Hemoglobin Ql (U) moderate [employer] [employer] Other Ketones Ql (U) Negative [employer] Other Leukocyte esterase Test strip Ql (U) trace [employer] Other Nitrite Ql (U) Negative [employer] Other pH (U) 5.0 [pH] [employer] Other Protein Ql (U) Negative [employer] Other Specific gravity (U) [Rel density] 1.020 [employer] Other Urinalysis Gross Exam Positive Nor [employer] Other Urobilinogen (U) [Mass/Vol] 0.2 mg/dL [employer] Other Urinalysis - AUTOMATED No rt [employer] Other Anesthesia Noteon 12-11-2019 Anesthesia Note [facility] Patient: NICOLE LOMELI [address] [place] [address] MR#: [id number] ANESTHESIA NOTE : Service Date: 12/11/19 1323 [...] pre-op Electronically Signed eSign Date and Time Isra Avila 12/11/19 1324 Baldo Mcgregor MD Normal [facility] HGB AND HCTon 12-11-2019 Hematocrit (Bld) [Volume fraction] 29.1 % Low 36.0-48.0 [facility] Comment on above: Order Comment: Segundodeshaun s: MAIN Performed By: #### L 200.97604 ####Test performed at: [place] [address] Hemoglobin (Bld) [Mass/Vol] 11.9 g/dL Low 12.0-15.0 [facility] Comment on above: Order Comment: Carlos s: MAIN Performed By: #### L 200.11764 ####Test performed at: [place] [address] Internal Med Progress Noteon 12-11-2019 Internal Med Progress Note [facility] Patient: NICOLE LOMELI [address] [place] [address] MR#: [id number] PROGRESS NOTE - Internal Medicine : 48 Service Date: 12/11/19 06 Subjective Primary Resident: Adán Trimble After Hours Call: [phone] Red Team Summary of Stay 69 yo F with PMHx of Anxiety, depression, COPD, GERD, Hx of TIA 2011, Migraine headache and Hx of cardiac normal cath 2012 is s/p L4-5 laminectomy and foraminotomy: POD [...] Agree with above documentation. The [resident's, PA's, LAN/WAN ENGINEER's] assessment and plan reflect my input. Discussed with documenting provider and patient. Plan is as outlined above. Electronically Signed eSign Date and Time Abhinav Pearson RES, Donald E. MD 12/11/19 1309 Normal [facility] OT Therapy Recommendationson 12-11-2019 OT Therapy Recommendations [facility] Patient: NICOLE LOMELI [address] [place] [address] MR#: [id number] OT THERAPY RECOMMENDATIONS : 48 Service Date: 12/11/19 1429 Therapy Recommendations Therapy Recommendations Recommendations O.T. eval completed, recommend pt d/c home with family assistance. No additional acute o.t. needs at this time. Electronically Signed eSign Date and Time Samantha Garcia OT 12/11/19 1430 Normal [facility] Orthopedic Progress Noteon 0 12-11-2019 Orthopedic Progress Note [facility] Patient: NICOLE LOMELI [address] [place], [place] [id number] MR#: [id number] PROGRESS NOTE - Orthopedic : 48 Service [...] understanding. QUestions answered to pt satisfaction Dr Shall aware Results Results All Laboratory Tests 12/10 [...] prophilaxis Electronically Signed eSign Date and Time SANGEETHA LIRA 12/11/19 1217 Bob West MD Normal [facility] PT Therapy Recommendationson 12-11-2019 aPTT Coag (Bld) [Time] [facility] Patient: NICOLE LOMELI [address] [place] [address] MR#: [id number] PT THERAPY RECOMMENDATIONS : 48 Service Date: 12/11/19 1224 Therapy Recommendations Therapy Recommendations Recommendations PT EVAL. COMPLETED. DC RECOMMENDATION: EVENTUAL HOME PT OR OUTPATIENT PT SERVICES WITH PHYSICIAN CONSENT. PATIENT WOULD LIKE TO BE ABLE TO AMBULATE WITHOUT A.D. Electronically Signed eSign Date and Time Elmira Marquez PT 12/11/19 1226 Normal [facility] Transfer From ([facility])on 12-11-2019 Transfer From [facility]) From: [facility] Patient: NICOLE LOMELI [address] [place] [address] Birthdate: [birth year] Age: 69 Attending Physician: Bob [...] FOR 30 DAYS - SIG Obtained From [facility] Oxybutynin Chloride* (Ditropan*) 5 MG TABLET 5 MILLIGRAM ORAL EVERY DAY Qty = 90 Comments: TAKE 1 TABLET BY MOUTH ONCE DAILY FOR 90 DAYS - SIG Obtained From [facility] Raloxifene HCl (Raloxifene HCl) 60 MG TABLET [...] FOR 30 DAYS - SIG Obtained From [facility] Ipratropium/Albuterol MDI * (Combivent RESPIMAT MDI *) [...] reflection of the individuals condition. HOME WITH [facility] Electronically Signed eSign Date and Time CHARLESJOSE WesleySANGEETHA 12/28/19 1213 Bob West MD Normal [facility] z OT Inpatient Discharge Not norberto 12-11-2019 z OT Inpatient Discharge Note [facility] Patient: NICOLE LOMELI [facility] [place] [address] MR#: [id number] OT INPATIENT DISCHARGE NOTE : 48 Service Date: 12/11/19 1437 z OT HPI Discharge Note Total number of visits 1 Date of Discharge 12/11/19 Start of Care Date 12/11/19 z OT Inpatient AP Discharge DC Recommendations Home-No Home Health Care OT Status: DISCHARGED Electronically Signed eSign Date and Time Samantha Garcia OT 12/11/19 1437 Normal [facility] z OT Inpatient Evaluationon 12-11-2019 z OT Inpatient Evaluation [facility] Patient: NICOLE LOMELI [address] [place] [address] MR#: [id number] OT INPATIENT EVALUATION : 48 See Addendum [...] Add correction of in and out times: [id number] Electronically Signed eSign Date and Time Samantha Garcia OT 12/11/19 1604 Normal [facility] z PT Inpatient Discharge Not norberto 12-11-2019 z PT Inpatient Discharge Note [facility] Patient: NICOLE LOMELI [address] [address] MR#: [id number] PT INPATIENT DISCHARGE NOTE : 48 Service [...] Time Elmira Marquez PT 12/11/19 1227 Normal [facility] z PT Inpatient Evaluationon 12-11-2019 z PT Inpatient Evaluation [facility] Patient: NICOLE LOMELI [address] [address] MR#: [id number] PT INPATIENT EVALUATION : 48 Service Date: [...] Hand Held Shower Hose, Long Shoe Horn, Brick Setter Steps to Enter House 1 Stairs Inside [...] LLE Strength: 4 /5 Outcome Measures Modified Hammond Score 1-No Serious Disability AM-PAC Inpatient Mobility [...] Time Elmira Marquez PT 12/11/19 1254 Normal [facility] Internal Medicine Consultati onon 12-10-2019 Internal Medicine Consultation [facility] Patient: NICOLE LOMELI [address] [place] [address] MR#: [id number] CONSULTATION - Internal Medicine : 48 Service Date: 12/10/19 1737 History of Present Illness Referring Physician Bob West MD HPI 69 yo F with PMHx of Anxiety, depression, COPD, GERD, Hx of TIA 2011, Migraine headache and Hx of cardiac normal cath 2012 is s/p L4-5 laminectomy and foraminotomy: POD [...] Entered as Reported by SUSAN SHETTY on 11/17/191100 Last Action: Reviewed on 12/10/191113 by ONDINA UMANZOR Fenofibrate, Micronized * (Tricor *) 145 MG TABLET 145 MG PO QHS #90 TABLET, Ref 0 ( Reported) Entered as Reported by SUSAN SHETTY on 11/17/191100 Last Action: Continued on 12/10/191741 by ABHINAV PEARSON Fluoxetine HCl 40 MG CAPSULE 40 MG PO DAILY #90, Ref 0 (Reported) Entered as Reported by SUSAN SHETTY on 11/17/191100 Last Action: Reviewed on 12/10/191113 by ONDINA UMANZOR Oxybutynin Chloride* (Ditropan*) 5 MG TABLET 5 MG PO DAILY #90, Ref 0 (Reported) Entered as Reported by SUSAN SHETTY on 11/17/191058 Last Action: Reviewed on 12/10/191113 by ONDINA UMANZOR Raloxifene HCl 60 MG TABLET 60 MG PO DAILY menopause #0, Ref 0 (Reported) Entered as Reported by SUSAN SHETTY on 11/17/19 1100 Last Action: Continued on 12/10/191741 by ABHINAV [...] as Reported by SUSAN SHETTY on 11/17/19 1100 Last Action: Reviewed on 12/10/19 1114 by ONDINA UMANZOR oxyCODONE HCl 5mg AND [...] Agree with above documentation. The [resident's, PA's, LAN/WAN ENGINEER's] assessment and plan reflect my input. Discussed with documenting provider and patient. Plan is as outlined above. Electronically Signed eSign Date and Time Abhinav Pearson RES, Donald E. MD 12/11/19 1309 Normal [facility] OPERATIVE REPORTon 0 OPERATIVE REPORT NAME: TEMI LOMELI MR#: [id number] SURGEON: Bob West MD DATE OF SURGERY: [...] There were no complications. BOB WEST MD [facility] PT NAME: NICOLE LOMELI MR#: [id number] [address] [place], [place] [address] ACCT: [id number] : 48 OPERATIVE REPORT [id number] E/S: Bob West MD 01/01/20 1516 Electronically Signed [facility] PT NAME: NICOLE LOMELI MR#: [id number] [address] [place], [place] [address] ACCT: [id number] : 48 OPERATIVE REPORT Normal [facility] Primary Residenton 0 Primary Resident [facility] Pt Name: NICOLE LOMELI MR#: [id number] [address] [place] [address] ACCT: [id number] [place] [address] : [birth year] Service Date: 12/10/19 1755 Primary Resident/Call Primary Resident: [id number] Adán Pearson After Hours Call: [phone] Red Team Electronically Signed eSign Date and Time Abhinav Pearson RES 12/10/19 1755 Normal [facility] LUMBAR SPINE 2 OR 3 VIEWSon 12-09-2019 LUMBAR SPINE 2 OR 3 VIEWS Exam: Fluoroscopic images during lumbar spine fusion. Clinical History: Pain. Findings: Multiple fluoroscopic images during lumbar spine surgery with placement of surgical marker at L4-L5 level. Please refer to the surgical note for further details. Impression: As above. Dictated: 12/11/19 1049 REPORT SIGNATURE ON FILE12/11/19(7097) Reported By: MERRITT AUGUSTINE Signed By: MERRITT AUGUSTINE Normal [facility] CORONAVIRUSon 12-08-2019 CORONAVIRUS Negative results do [...] COVID-19 Negative for COVID-19 (SARS-CoV-2 RNA) Normal [facility] Comment on above: Order Comment: CBN: Gal[place]: MAINComment: OVID Testing: PRE-OP/PROCEDURE Performed By: #### M 400.02129 ####Test performed at: [place] [address] CORONAVIRUSon 11-18-2019 CORONAVIRUS Negative results do not [...] COVID-19 Negative for COVID-19 (SARS-CoV-2 RNA) Normal [facility] Comment on above: Order Comment: CBN: YES Lawrence: MAIN Comment: 11/18 COVID Testing: PRE-OP/PROCEDURE Performed By: #### M 400.96261 #### Test performed at: [address] [address] CBC W/DIFFon 11-17-2019 BASO ABS 0.0 K/uL Normal 0.0-0.2 [facility] Comment on above: Performed By: #### L 200.42908 #### Test performed at: [address] [address] Basophils/100 WBC (Bld) 0.2 % Normal [facility] Comment on above: Performed By: #### L 200.72616 #### Test performed at: [address] [address] EOS ABS 0.1 K/uL Normal 0.0-0.5 [facility] Comment on above: Performed By: #### L 200.81208 #### Test performed at: [address] [address] Eosinophils/100 WBC (Bld) 1.4 % Normal [facility] Comment on above: Performed By: #### L 200.27050 #### Test performed at: [address] [address] IG % 0.5 % Normal [facility] Comment on above: Performed By: #### L 200.04869 #### Test performed at: [address] [address] IG ABS 0.04 K/uL Normal 0-0.05 [facility] Comment on above: Performed By: #### L 200.74064 #### Test performed at: [address] [address] Lymphocytes (Bld) [#/Vol] 2.5 10*3/uL Normal 1.2-3.5 [facility] Comment on above: Performed By: #### L 200.21046 #### Test performed at: [address] [address] Lymphocytes/100 WBC (Bld) 28.8 % Normal [facility] Comment on above: Performed By: #### L 200.55043 #### Test performed at: [address] [address] MONO ABS 0.6 K/uL Normal 0.0-1.0 [facility] Comment on above: Performed By: #### L 200.59455 #### Test performed at: [address] [address] Monocytes/100 WBC (Bld) 7.2 % Normal [facility] Comment on above: Performed By: #### L 200.29394 #### Test performed at: [address] [address] NEUTROPHIL ABS 5.3 K/uL Normal 1.4-6.6 [facility] Comment on above: Performed By: #### L 200.53865 #### Test performed at: [address] [address] Neutrophils/100 WBC (Bld) 61.9 % Normal [facility] Comment on above: Performed By: #### L 200.27777 #### Test performed at: [address] [address] Erythrocyte distribution width (RBC) [Ratio] 13.8 % Normal 11.5-14.5 [facility] Comment on above: Performed By: #### L 200.41828 #### Test performed at: [address] [address] Hematocrit (Bld) [Volume fraction] 38.6 % Normal 36.0-48.0 [facility] Comment on above: Performed By: #### L 200.81131 #### Test performed at: [place] [address] Hemoglobin (Bld) [Mass/Vol] 12.4 g/dL Normal 12.0-15.0 [facility] Comment on above: Performed By: #### L 200.00886 #### Test performed at: [address] [address] MCH (RBC) [Entitic mass] 31.1 pg Normal 25.4-34.6 [facility] Comment on above: Performed By: #### L 200.34604 #### Test performed at: [place] [id number] MCHC (RBC) [Mass/Vol] 32.1 g/dL Normal 31.5-36.5 [facility] Comment on above: Performed By: #### L 200.57673 #### Test performed at: [place] [id number] MCV (RBC) [Entitic vol] 96.7 fL Normal 79.0-98.0 [facility] Comment on above: Performed By: #### L 200.64683 #### Test performed at: [place] [address] NRBC # 0.000 K/uL Normal 0-0.012 [facility] Comment on above: Performed By: #### L 200.30467 #### Test performed at: [place] [address] NRBC % 0.0 /100 WBC Normal 0-0.2 [facility] Comment on above: Performed By: #### L 200.17172 #### Test performed at: [address] [address] Platelet mean volume (Bld) [Entitic vol] 10.8 fL Normal 8.7-12.4 [facility] Comment on above: Performed By: #### L 200.53692 #### Test performed at: [address] [address] Platelets (Bld) [#/Vol] 268 10*3/uL Normal 140-440 [facility] Comment on above: Performed By: #### L 200.74059 #### Test performed at: [address] [address] RBC (Bld) [#/Vol] 3.99 10*6/uL Normal 3.5-5.5 [facility] Comment on above: Performed By: #### L 200.33834 #### Test performed at: [address] [address] WBC (Bld) [#/Vol] 8.5 10*3/uL Normal 3.9-11.0 [facility] Comment on above: Performed By: #### L 200.05279 #### Test performed at: [address] [address] CHEST PA/AP & LATERAL OR 2 V WSon 11-17-2019 CHEST PA/AP & LATERAL OR 2 VWS STUDY: CHEST PA/AP LATERAL OR 2 VWS; 11/17/2019 12:06 pm INDICATION: Pre op . COMPARISON: None. ACCESSION NUMBER(S): [id number] ORDERING CLINICIAN: Tariq Pino FINDINGS: The lungs are clear without pleural effusion. Normal heart size, mediastinum, kenneth, and pulmonary vasculature. Thoracic degenerative changes. Partially imaged cervical fusion hardware. IMPRESSION: No active disease in the chest. Normal [facility] COMP META PANELon 11-17-2019 Albumin [Mass/Vol] 3.6 g/dL Normal 3.4-5.0 [facility] Comment on above: Performed By: #### L 500.00485, L500.99339 #### Test performed at: [address] [address] ALK PHOS TOTAL 83 U/L Normal 45-117 [facility] Comment on above: Performed By: #### L 500.66633, L500.35095 #### Test performed at: [address] [address] ALT [Catalytic activity/Vol] 14 U/L Normal 13-61 [facility] Comment on above: Performed By: #### L 500.61248, L500.96822 #### Test performed at: [address] [address] AST [Catalytic activity/Vol] 22 U/L Normal 15-37 [facility] Comment on above: Performed By: #### L 500.56698, L500.90522 #### Test performed at: [address] [address] BILI TOTAL 0.2 mg/dL Normal 0.2-1.0 [facility] Comment on above: Performed By: #### L 500.67111, L500.02512 #### Test performed at: [address] [address] Calcium [Mass/Vol] 8.5 mg/dL Normal 8.5-10.1 [facility] Comment on above: Performed By: #### L 500.07239, L500.84355 #### Test performed at: [address] [address] Chloride [Moles/Vol] 107 mmol/L Normal 98-107 [facility] Comment on above: Performed By: #### L 500.83401, L500.08796 #### Test performed at: [address] [address] CO2 [Moles/Vol] 29 mmol/L Normal 21-32 [facility] Comment on above: Performed By: #### L 500.98860, L500.12296 #### Test performed at: [address] [address] Creatinine [Mass/Vol] 0.877 mg/dL Normal 0.550- 1.02 0 [facility] Comment on above: Performed By: #### L 500.14833, L500.09605 #### Test performed at: [address] [address] Glucose [Mass/Vol] 103 mg/dL High 70-99 [facility] Comment on above: Result Comment: Fast ing GLUCOSE reference range has been updated per (ADA) Stateless Diabetes Association's recommendation. 07/01/2018 Performed By: #### L 500.67763, L500.06267 #### Test performed at: [address] [address] Potassium [Moles/Vol] 3.9 mmol/L Normal 3.5-5.1 [facility] Comment on above: Performed By: #### L 500.52831, L500.05732 #### Test performed at: [address] [address] Protein [Mass/Vol] 6.4 g/dL Normal 6.4-8.2 [facility] Comment on above: Performed By: #### L 500.77400, L500.40757 #### Test performed at: [address] [address] Sodium [Moles/Vol] 141 mmol/L Normal 136-145 [facility] Comment on above: Performed By: #### L 500.79069, L500.62258 #### Test performed at: [place] [address] Urea nitrogen [Mass/Vol] 10 mg/dL Normal 7-18 [facility] Comment on above: Performed By: #### L 500.41788, L500.08097 #### Test performed at: [place] [address] GFR ESTIMATEon 11-17-2019 IF AMER > 60 Normal > 60 [facility] Comment on above: Result Comment: eGFR (Estimated GFR) Units of measure:mL/min/1.73 meters sq. *CALCULATION REVISED 01/25/2015;IDMS-traceable MDRD equation eGFR is derived from the reexpressed MDRD Study equation using the following parameters: serum creatinine, age, gender and race. An eGFR<60 mL/min/1.73m2 for >3 months is consistent with chronic kidney disease. Refer to KDOQI guidelines for clinical interpretation. Performed By: #### L 500.94892, L500.23589 #### Test performed at: [place] [address] IF non-AFR AMER > 60 Normal > 60 [facility] Comment on above: Performed By: #### L 500.13566, L500.78777 #### Test performed at: [place] [address] GLYCO HEMOon 11-17-2019 HbA1c (Bld) [Mass fraction] 5.5 % Normal [facility] Comment on above: Result Comment: Deya sellers Diagnosis HbA1c (%) --------- Diabetic > 6.4 Prediabetes 5.7-6.4 Normal < 5.7 Performed By: #### L 500.82151 #### Test performed at: [place] [address] H & Bart 11-17-2019 H & P [facility] Patient: NICOLE LOMELI [address] [place] [id number] MR#: [id number] HISTORY and PHYSICAL : Service Date: 11/17/19 [...] Chest pain, Pain on exertion, History of [place], Palpitation, Syncope, Murmur, Leg swelling, History of [...] 11/17/19 1058 Last Action: Reviewed on 11/17/19 1102 by SUSAN SHETTY Ergocalciferol (Vitamin D2) * (Vitamin D2 *) 1,250 MCG (50,000 UNIT) CAPSULE 1,250 MCG PO EVERY 7 DAYS #0, Ref 0 (Reported) Entered as Reported by SUSAN SHETTY on 11/17/191100 Last Action: Reviewed on 11/17/191102 by SUSAN SHETTY Fenofibrate, Micronized * (Tricor *) 145 MG TABLET 145 MG PO DAILY #90, Ref 0 (Reported ) Entered as Reported by SUSAN SHETTY on 11/17/191100 Last Action: Reviewed on 11/17/191101 by SUSAN SHETTY Fluoxetine HCl 40 MG CAPSULE 40 MG PO DAILY #90, Ref 0 (Reported) Entered as Reported by SUSAN SHETTY on 11/17/191100 Last Action: Reviewed on 11/17/191102 by SUSAN SHETTY Oxybutynin Chloride* (Ditropan*) 5 MG TABLET 5 MG PO DAILY #90, Ref 0 (Reported) Entered as Reported by SUSAN SHETTY on 11/17/191058 Last Action: Reviewed on 11/17/191102 by SUSAN SHETTY Raloxifene HCl 60 MG TABLET 60 MG PO DAILY menopause #0, Ref 0 (Reported) Entered as Reported by SUSAN SHETTY on 11/17/19 1100 Last Action: Reviewed on 11/17/191102 by SUSAN SHETTY Simvastatin * (Zocor *) 40 MG TABLET 40 MG PO QHS, Ref 0 (Reported) Entered as Reported by SUSAN SHETTY on 11/17/19 105 Last Action: Reviewed on 11/17/191101 by SUSAN SHETTY Zolpidem Tartrate * (Ambien 5mg Tablet*) 5 MG TABLET 5 MG PO QHS #30, Ref 0 (Reported) Entered as Reported by SUSAN SHETTY on 11/17/19 105 Last Action: Reviewed on 11/17/191102 by SUSAN [...] as Reported by SUSAN SHETTY on 11/17/19 1100 Last Action: Reviewed on 11/17/191101 by SUSAN [...] Time Tariq Pino MD 11/17/19 1526 Normal [facility] TSPATon 11-17-2019 ABO and Rh group Nom (Bld) A POSITIVE Normal [facility] Comment on above: Order Comment: Trans fusion Status: CONSERVATION Blood Bank service requested: TYPE AND SCREEN Performed By: #### B [id number] #### Test performed at: [facility] [address] [place] [id number] US VENOUS REFLUX STUDY LTon 09-02-2019 US VENOUS REFLUX STUDY LT Patient: NICOLE LOMELI Exam Date: 09/02/2019 : 1950 Gender:F Ordering : DR PARRIS GUZMAN Admission #: [id number] Family : Order #: [id number] CLICK HERE TO VIEW EXAM RADIOLOGY REPORT [...] present Thrombi: None Compressibility: Normal Flow: Normal Resin Filterer: Resin Filterer visualized on the left mid medial lower [...] Vargas MD on 09/02/2019 at 12:47 Normal [facility] XR PELVIS 1_2 VIEWSon 2019 XR PELVIS [...] by: ALTAGRACIA VARGAS Date: 2019-09-02 12:51 Normal [facility] Vital Signs Date Time Vital Sign Value Performing Clinician Facility 12-12-2023 09:56-0400 Body temperature 97.2 [degF] [facility] 12-12-2023 09:56-0400 Body weight 85 kg [facility] 12-12-2023 09:56-0400 Diastolic blood pressure 74 mm[Hg] [facility] 12-12-2023 09:56-0400 Systolic blood pressure 135 mm[Hg] [facility] 12-05-2023 15:01-0400 Body height 157.48 cm [facility] 12-05-2023 15:01-0400 Body mass index (BMI) [Ratio] 34.5 kg/m2 [facility] 12-05-2023 15:01-0400 Body temperature 97.3 [degF] [facility] 12-05-2023 15:01-0400 Body weight 85.72 kg [facility] 12-05-2023 15:01-0400 Diastolic blood pressure 80 mm[Hg] [facility] 12-05-2023 15:01-0400 Heart rate 80 /min [facility] 12-05-2023 15:01-0400 Inhaled oxygen flow rate 4 L/min [facility] 12-05-2023 15:01-0400 Respiratory rate 18 /min [facility] 12-05-2023 15:01-0400 SaO2% (BldA) [Mass fraction] 97 % [facility] 12-05-2023 15:01-0400 Systolic blood pressure 130 mm[Hg] [facility] 11-15-2023 08:22-0400 Body height 157.48 cm DO Parris Thomas Work Phone: [facility] 11-15-2023 08:22-0400 Body mass index (BMI) [Ratio] 34.7 kg/m2 DO Parris Thomas Work Phone: [facility] 11-15-2023 08:22-0400 Body temperature 97.2 [degF] DO Parris Thomas Work Phone: [facility] 11-15-2023 08:22-0400 Body weight 86 kg DO Parris Thomas Work Phone: [facility] 11-15-2023 08:22-0400 Diastolic blood pressure 63 mm[Hg] DO Parris Thomas Work Phone: [facility] 11-15-2023 08:22-0400 Heart rate 75 /min DO Parris Thomas Work Phone: [facility] 11-15-2023 08:22-0400 Systolic blood pressure 110 mm[Hg] DO Parris Thomas Work Phone: [facility] 09-23-2023 11:15-0400 Body height 157.48 cm DO Parris Thomas Work Phone: [facility] 09-23-2023 11:15-0400 Body mass index (BMI) [Ratio] 33.6 kg/m2 DO Parris Thomas Work Phone: [facility] 09-23-2023 11:15-0400 Body temperature 99.4 [degF] DO Parris Thomas Work Phone: [facility] 09-23-2023 11:15-0400 Body weight 83.46 kg DO Parris Thomas Work Phone: [facility] 09-23-2023 11:15-0400 Diastolic blood pressure 72 mm[Hg] DO Parris Thomas Work Phone: [facility] 09-23-2023 11:15-0400 Heart rate 87 /min DO Parris Thomas Work Phone: [facility] 09-23-2023 11:15-0400 Respiratory rate 20 /min DO Praris Thomas Work Phone: [facility] 09-23-2023 11:15-0400 SaO2% (BldA) [Mass fraction] 96 % DO Parris Thomas Work Phone: [facility] 09-23-2023 11:15-0400 Systolic blood pressure 126 mm[Hg] DO Parris Thomas Work Phone: [facility] 09-04-2023 08:44-0400 Body height 157.48 cm [facility] 09-04-2023 08:44-0400 Body mass index (BMI) [Ratio] 33.6 kg/m2 [facility] 09-04-2023 08:44-0400 Body temperature 97.5 [degF] [facility] 09-04-2023 08:44-0400 Body weight 83.46 kg [facility] 09-04-2023 08:44-0400 Diastolic blood pressure 68 mm[Hg] [facility] 09-04-2023 08:44-0400 Heart rate 83 /min [facility] 09-04-2023 08:44-0400 Inhaled oxygen flow rate 4 L/min [facility] 09-04-2023 08:44-0400 Respiratory rate 20 /min [facility] 09-04-2023 08:44-0400 SaO2% (BldA) [Mass fraction] 99 % [facility] 09-04-2023 08:44-0400 Systolic blood pressure 118 mm[Hg] [facility] 08-27-2023 11:00-0400 Hourly Rounding Albert KHALILSLIN [facility] 08-27-2023 10:40-0400 Hourly Rounding Albertmikal KHALILSLIN [facility] 08-27-2023 10:40-0400 Promise to Return Albert CLARK [facility] 08-27-2023 09:10-0400 Hourly Rounding Albertmikal KHALILSLIN [facility] 08-27-2023 09:10-0400 Promise to Return Albertmikal KHALILSLIN [facility] 08-27-2023 08:11-0400 Promise to Return Albertmikal KHALILSLIN [facility] 08-27-2023 08:01-0400 SaO2% (BldA) [Mass fraction] 95 % Albertmikal KHALILSLIN [facility] 08-27-2023 08:00-0400 Body temperature 97.88 [degF] Albertmikal KHALILSLIN [facility] 08-27-2023 08:00-0400 Diastolic blood pressure 86 mm[Hg] Albertmikal KHALILSLIN [facility] 08-27-2023 08:00-0400 Heart rate 88 /min Albertmikal KHALILSLIN [facility] 08-27-2023 08:00-0400 Respiratory rate 16 /min Albertmikal KHALILSLIN [facility] 08-27-2023 08:00-0400 SaO2% (BldA) [Mass fraction] 97 % Albertmikal KHALILSLIN [facility] 08-27-2023 08:00-0400 Systolic blood pressure 146 mm[Hg] Albertmikal KHALILSLIN [facility] 08-27-2023 05:36-0400 Blood Pressure Location Albertmikal KHALILSLIN [facility] 08-27-2023 05:36-0400 Body temperature 96.8 [degF] Albert CLARK [facility] 08-27-2023 05:36-0400 Diastolic blood pressure 76 mm[Hg] Albert CLARK [facility] 08-27-2023 05:36-0400 Heart rate 95 /min Albert CLARK [facility] 08-27-2023 05:36-0400 Mean blood pressure 92 mm[Hg] Albert CLARK [facility] 08-27-2023 05:36-0400 Respiratory rate 18 /min Albertmikal KHALILSLIN [facility] 08-27-2023 05:36-0400 SaO2% (BldA) [Mass fraction] 94 % Albertmikal KHALILSLIN [facility] 08-27-2023 05:36-0400 Systolic blood pressure 123 mm[Hg] Albert CLARK [facility] 08-27-2023 00:14-0400 Blood Pressure Location Albertmikal KHALILSLIN [facility] 08-27-2023 00:14-0400 Body temperature 97.88 [degF] Albertmikal KHALILSLIN [facility] 08-27-2023 00:14-0400 Diastolic blood pressure 77 mm[Hg] Albert CLARK [facility] 08-27-2023 00:14-0400 Heart rate 88 /min Albert CLARK [facility] 08-27-2023 00:14-0400 Mean blood pressure 95 mm[Hg] Albert CLARK [facility] 08-27-2023 00:14-0400 Respiratory rate 18 /min Albert CLARK [facility] 08-27-2023 00:14-0400 Systolic blood pressure 131 mm[Hg] Albert CLARK [facility] 08-26-2023 20:13-0400 Respiratory rate 18 /min Albertmikal KHALILSLIN [facility] 08-26-2023 19:29-0400 Body temperature 97.7 [degF] Albertmikal KHALILSLIN [facility] 08-26-2023 19:29-0400 Mean blood pressure 86 mm[Hg] Albert CLARK [facility] 08-26-2023 16:12-0400 Blood Pressure Location Albertmikal KHALILSLIN [facility] 08-26-2023 16:12-0400 Body temperature 97.7 [degF] Albertmikal KHALILSLIN [facility] 08-26-2023 16:12-0400 Heart rate 75 /min Albertmikal KHALILSLIN [facility] 08-26-2023 16:12-0400 Respiratory rate 15 /min Albertmikal KHALILSLIN [facility] 08-26-2023 15:26-0400 Body temperature 97.7 [degF] Albertmikal KHALILSLIN [facility] 08-26-2023 15:26-0400 Mean blood pressure 95 mm[Hg] Albert CLARK [facility] 08-26-2023 15:13-0400 Mean blood pressure 89 mm[Hg] Albert CLARK [facility] 08-26-2023 03:58-0400 Heart rate 81 /min Albert CLARK [facility] 08-12-2023 09:35-0400 Body height 157.48 cm DO Parris Thomas Work Phone: [facility] 08-12-2023 09:35-0400 Body mass index (BMI) [Ratio] 33.5 kg/m2 DO Parris Thomas Work Phone: [facility] 08-12-2023 09:35-0400 Body temperature 97.3 [degF] DO Parris Thomas Work Phone: [facility] 08-12-2023 09:35-0400 Body weight 83 kg DO Parris Thomas Work Phone: [facility] 08-12-2023 09:35-0400 Diastolic blood pressure 70 mm[Hg] DO Parris Thomas Work Phone: [facility] 08-12-2023 09:35-0400 Heart rate 77 /min DO Parris Thomas Work Phone: [facility] 08-12-2023 09:35-0400 Respiratory rate 20 /min DO Parris Thomas Work Phone: [facility] 08-12-2023 09:35-0400 SaO2% (BldA) [Mass fraction] 98 % DO Parris Thomas Work Phone: [facility] 08-12-2023 09:35-0400 Systolic blood pressure 130 mm[Hg] DO Parris Thomas Work Phone: [facility] 07-12-2023 11:05-0400 Body height 157.48 cm DO Parris Thomas Work Phone: [facility] 07-12-2023 11:05-0400 Body mass index (BMI) [Ratio] 32.1 kg/m2 DO Parris Thomas Work Phone: [facility] 07-12-2023 11:05-0400 Body weight 79.83 kg DO Parris Thomas Work Phone: [facility] 07-12-2023 11:05-0400 SaO2% (BldA) [Mass fraction] 99 % DO Parris Thomas Work Phone: [facility] 06-20-2023 09:51-0400 Body temperature 98.1 [degF] DO Parris Thomas Work Phone: [facility] 06-20-2023 09:51-0400 Diastolic blood pressure 68 mm[Hg] DO Parris Thomas Work Phone: [facility] 06-20-2023 09:51-0400 Heart rate 76 /min DO Parris Thomas Work Phone: [facility] 06-20-2023 09:51-0400 SaO2% (BldA) [Mass fraction] 99 % DO Parris Thomas Work Phone: [facility] 06-20-2023 09:51-0400 Systolic blood pressure 108 mm[Hg] DO Parris Thomas Work Phone: [facility] 05-22-2023 09:25-0500 Body height 157.48 cm DO Parris Thomas Work Phone: [facility] 05-22-2023 09:25-0500 Body mass index (BMI) [Ratio] 31.6 kg/m2 DO Parris Thomas Work Phone: [facility] 05-22-2023 09:25-0500 Body weight 78.47 kg DO Parris Thomas Work Phone: [facility] 05-22-2023 09:20-0500 Body temperature 97.6 [degF] DO Parris Thomas Work Phone: [facility] 05-22-2023 09:20-0500 Diastolic blood pressure 82 mm[Hg] DO Parris Thomas Work Phone: [facility] 05-22-2023 09:20-0500 Heart rate 92 /min DO Parris Thomas Work Phone: [facility] 05-22-2023 09:20-0500 Respiratory rate 20 /min DO Parris Thomas Work Phone: [facility] 05-22-2023 09:20-0500 Systolic blood pressure 126 mm[Hg] DO Parris Thomas Work Phone: [facility] 05-14-2023 09:30-0500 Body height 157.48 cm Zuleyka Linaresraw Other [facility] Other 05-14-2023 09:30-0500 Body mass index (BMI) [Ratio] 32 kg/m2 Zuleyka Linaresraw Other [facility] Other 05-14-2023 09:30-0500 Body temperature 97.2 [degF] Zuleyka Linaresraw Other [facility] Other 05-14-2023 09:30-0500 Body weight 79.38 kg Zuleyka Ross Other [facility] Other 05-14-2023 09:30-0500 Diastolic blood pressure 68 mm[Hg] Zuleyka Linaresraw Other [facility] Other 05-14-2023 09:30-0500 Systolic blood pressure 141 mm[Hg] Zuleyka Cody Other [facility] Other 05-08-2023 08:58-0500 Inhaled oxygen flow rate 4 L/min DO Parris Thomas Work Phone: [facility] 03-13-2023 10:30-0500 Body height 157.48 cm Parris Thomas Other [facility] Other 03-13-2023 10:30-0500 Body mass index (BMI) [Ratio] 31.46 kg/m2 Parris Thomas Other [facility] Other 03-13-2023 10:30-0500 Body temperature 97.6 [degF] Parris Thomsa Other [facility] Other 03-13-2023 10:30-0500 Body weight 78.02 kg Parris Thomas Other [facility] Other 03-13-2023 10:30-0500 Diastolic blood pressure 62 mm[Hg] Parris Thomas Other [facility] Other 03-13-2023 10:30-0500 Respiratory rate 18 /min Parris Thomas Other [facility] Other 03-13-2023 10:30-0500 SaO2% (BldA) [Mass fraction] 96 % Parris Thomas Other [facility] Other 03-13-2023 10:30-0500 Systolic blood pressure 102 mm[Hg] Parris Thomas Other [facility] Other 03-12-2023 09:30-0500 Body height 157.48 cm Zuleyka Cody Other [facility] Other 03-12-2023 09:30-0500 Body mass index (BMI) [Ratio] 31.64 kg/m2 Zuleyka Ross Other [facility] Other 03-12-2023 09:30-0500 Body temperature 97.1 [degF] Zuleyka Ross Other [facility] Other 03-12-2023 09:30-0500 Body weight 78.47 kg Zuleyka Ross Other [facility] Other 03-12-2023 09:30-0500 Diastolic blood pressure 62 mm[Hg] Zuleyka Ross Other [facility] Other 03-12-2023 09:30-0500 Systolic blood pressure 124 mm[Hg] Zuleyka Ross Other [facility] Other 02-11-2023 09:30-0500 Body height 157.48 cm Parris Thomas Other [facility] Other 02-11-2023 09:30-0500 Body temperature 97.3 [degF] Parris Thomas Other [facility] Other 02-11-2023 09:30-0500 Diastolic blood pressure 78 mm[Hg] Parris Thomas Other [facility] Other 02-11-2023 09:30-0500 Respiratory rate 22 /min Parris Thomas Other [facility] Other 02-11-2023 09:30-0500 SaO2% (BldA) [Mass fraction] 97 % Parris Thomas Other [facility] Other 02-11-2023 09:30-0500 Systolic blood pressure 124 mm[Hg] Parris Thomas Other [facility] Other 02-01-2023 10:15-0400 Body height 157.48 cm Parris Thomas Other [facility] Other 02-01-2023 10:15-0400 Body temperature 96.9 [degF] Parris Thomas Other [facility] Other 02-01-2023 10:15-0400 Diastolic blood pressure 80 mm[Hg] Parris Thomas Other [facility] Other 02-01-2023 10:15-0400 Respiratory rate 22 /min Parris Thomas Other [facility] Other 02-01-2023 10:15-0400 SaO2% (BldA) [Mass fraction] 97 % Parris Thomas Other [facility] Other 02-01-2023 10:15-0400 Systolic blood pressure 118 mm[Hg] Parris Thomas Other [facility] Other 01-22-2023 17:43-0400 Body height 157.48 cm MD Cheko Rolon Jr Work Phone: [facility] 01-22-2023 17:43-0400 Body temperature 98.5 [degF] MD Cheko Rolon Jr Work Phone: [facility] 01-22-2023 17:43-0400 Body weight 78.47 kg MD Cheko Rolon Jr Work Phone: [facility] 01-22-2023 17:43-0400 Diastolic blood pressure 63 mm[Hg] MD Cheko Rolon Jr Work Phone: [facility] 01-22-2023 17:43-0400 Heart rate 81 /min MD Cheko Rolon Jr Work Phone: [facility] 01-22-2023 17:43-0400 Inhaled oxygen flow rate 4 L/min MD Cheko Rolon Jr Work Phone: [facility] 01-22-2023 17:43-0400 Respiratory rate 20 /min MD Cheko Rolon Jr Work Phone: [facility] 01-22-2023 17:43-0400 SaO2% (BldA) [Mass fraction] 95 % MD Cheko Rolon Jr Work Phone: [facility] 01-22-2023 17:43-0400 Systolic blood pressure 140 mm[Hg] MD Cheko Rolon Jr Work Phone: [facility] 01-18-2023 01:35-0400 Diastolic blood pressure 69 mm[Hg] MD Cheko Rolon Jr Work Phone: [facility] 01-18-2023 01:35-0400 Heart rate 84 /min MD Cheko Rolon Jr Work Phone: [facility] 01-18-2023 01:35-0400 Inhaled oxygen flow rate 4 L/min MD Cheko Rolon Jr Work Phone: [facility] 01-18-2023 01:35-0400 Respiratory rate 18 /min MD Cheko Rolon Jr Work Phone: [facility] 01-18-2023 01:35-0400 SaO2% (BldA) [Mass fraction] 91 % MD Cheko Rolon Jr Work Phone: [facility] 01-18-2023 01:35-0400 Systolic blood pressure 106 mm[Hg] MD Cheko Rolon Jr Work Phone: [facility] 01-17-2023 22:05-0400 Body height 157.48 cm MD Cheko Rolon Jr Work Phone: [facility] 01-17-2023 22:05-0400 Body temperature 97.3 [degF] MD Cheko Rolon Jr Work Phone: [facility] 01-17-2023 22:05-0400 Body weight 78.47 kg MD Cheko Rolon Jr Work Phone: [facility] 01-10-2023 11:00-0400 Body height 157.48 cm Zuleyka Ross Other [facility] Other 01-10-2023 11:00-0400 Body mass index (BMI) [Ratio] 31.64 kg/m2 Zuleyka Ross Other [facility] Other 01-10-2023 11:00-0400 Body temperature 97.2 [degF] Zuleyka Ross Other [facility] Other 01-10-2023 11:00-0400 Body weight 78.47 kg Zuleyka Ross Other [facility] Other 01-10-2023 11:00-0400 Diastolic blood pressure 68 mm[Hg] Zuleyka Ross Other [facility] Other 01-10-2023 11:00-0400 Systolic blood pressure 139 mm[Hg] Zuleyka Ross Other [facility] Other 12-27-2022 13:45-0400 Body height 157.48 cm Parris Thomas Other [facility] Other 12-27-2022 13:45-0400 Body mass index (BMI) [Ratio] 30.91 kg/m2 Parris Thomas Other [facility] Other 12-27-2022 13:45-0400 Body weight 76.66 kg Parris Thomas Other [facility] Other 12-27-2022 13:45-0400 Respiratory rate 20 /min Parris Thomas Other [facility] Other 11-29-2022 17:00-0400 Hourly Rounding Hasan AMIR [facility] 11-29-2022 17:00-0400 Promise to Return Hasan AMIR [facility] 11-29-2022 16:46-0400 Heart rate 77 /min Hasan AMIR [facility] 11-29-2022 16:46-0400 Respiratory rate 20 /min Hasan AMIR [facility] 11-29-2022 16:46-0400 SaO2% (BldA) [Mass fraction] 92 % Hasan AMIR [facility] 11-29-2022 16:37-0400 Heart rate 77 /min Hasan AMIR [facility] 11-29-2022 16:37-0400 SaO2% (BldA) [Mass fraction] 94 % Hasan AMIR [facility] 11-29-2022 16:37-0400 Diastolic blood pressure 82 mm[Hg] Hasan AMIR [facility] 11-29-2022 16:37-0400 Mean blood pressure 104 mm[Hg] Hasan AMIR [facility] 11-29-2022 16:37-0400 Systolic blood pressure 150 mm[Hg] Hasan AMIR [facility] 11-29-2022 16:37-0400 Body temperature 97.88 [degF] Hasan AMIR [facility] 11-29-2022 16:00-0400 Hourly Rounding Hasan AMIR [facility] 11-29-2022 16:00-0400 Promise to Return Hasan AMIR [facility] 11-29-2022 15:20-0400 Hourly Rounding Hasan AMIR [facility] 11-29-2022 15:20-0400 Promise to Return Hasan AMIR [facility] 11-29-2022 12:22-0400 Heart rate 72 /min Hasan AMIR [facility] 11-29-2022 12:22-0400 Respiratory rate 20 /min Hasan AMIR [facility] 11-29-2022 12:04-0400 Respiratory rate 16 /min Hasan AMIR [facility] 11-29-2022 12:04-0400 SaO2% (BldA) [Mass fraction] 91 % Hasan AMIR [facility] 11-29-2022 11:41-0400 Blood Pressure Location Hasan AMIR [facility] 11-29-2022 11:41-0400 Body temperature 97.34 [degF] Hasan AMIR [facility] 11-29-2022 11:41-0400 Diastolic blood pressure 71 mm[Hg] Hasan AMIR [facility] 11-29-2022 11:41-0400 Mean blood pressure 91 mm[Hg] Hasan AMIR [facility] 11-29-2022 11:41-0400 Systolic blood pressure 130 mm[Hg] Hasan AMIR [facility] 11-29-2022 07:09-0400 Diastolic blood pressure 99 mm[Hg] Hasan AMIR [facility] 11-29-2022 07:09-0400 Mean blood pressure 123 mm[Hg] Hasan AMIR [facility] 11-29-2022 07:09-0400 Systolic blood pressure 170 mm[Hg] Hasan AMIR [facility] 11-29-2022 07:09-0400 Body temperature 97.7 [degF] Hasan AMIR [facility] 11-29-2022 00:30-0400 Blood Pressure Location Hasan AMIR [facility] 11-29-2022 00:30-0400 Body temperature 98.24 [degF] Hasan AMIR [facility] 11-29-2022 00:30-0400 Mean blood pressure 103 mm[Hg] Hasan AMIR [facility] 11-28-2022 20:00-0400 Body temperature 97.88 [degF] Hasan AMIR [facility] 11-28-2022 20:00-0400 Heart rate 82 /min Hasan AMIR [facility] 11-28-2022 20:00-0400 Mean blood pressure 104 mm[Hg] Hasan AMIR [facility] 11-28-2022 16:58-0400 Mean blood pressure 92 mm[Hg] Hasan AMIR [facility] 11-28-2022 16:58-0400 Body temperature 97.7 [degF] Hasan AMIR [facility] 11-26-2022 01:27-0400 Heart rate 67 /min Hasan AMIR [facility] 11-26-2022 00:39-0400 Respiratory rate 21 /min Hasan AMIR [facility] 11-26-2022 00:00-0400 Respiratory rate 23 /min Hasan AMIR [facility] 11-25-2022 16:34-0400 SaO2% (BldA) [Mass fraction] 91.8 % Hasan AMIR [facility] [employer] 11-25-2022 14:53-0400 Heart rate 97 /min Hasan AMIR [facility] 11-05-2022 13:00-0400 Body height 157.48 cm Parris Thomas Other [employer] [facility] [employer] Other 11-05-2022 13:00-0400 Body mass index (BMI) [Ratio] 30.54 kg/m2 Parris Thomas Other [facility] Other 11-05-2022 13:00-0400 Body temperature 97.5 [degF] Parris Thomas Other [facility] Other 11-05-2022 13:00-0400 Body weight 75.75 kg Parris Thomas Other [facility] Other 11-05-2022 13:00-0400 Diastolic blood pressure 60 mm[Hg] Parris Thomas Other [facility] Other 11-05-2022 13:00-0400 Respiratory rate 20 /min Parris Thomas Other [facility] Other 11-05-2022 13:00-0400 SaO2% (BldA) [Mass fraction] 96 % Parris Thomas Other [facility] [employer] Other 11-05-2022 13:00-0400 Systolic blood pressure 100 mm[Hg] Parris Thomas Other [facility] [employer] Other 10-24-2022 09:31-0400 Blood Pressure Location [facility] 10-24-2022 09:31-0400 Diastolic blood pressure 70 mm[Hg] [facility] 10-24-2022 09:31-0400 Heart rate 78 /min [facility] 10-24-2022 09:31-0400 SaO2% (BldA) [Mass fraction] 95 % [facility] 10-24-2022 09:31-0400 Systolic blood pressure 130 mm[Hg] [facility] 09-07-2022 09:46-0400 Blood Pressure Location [facility] 09-07-2022 09:46-0400 Diastolic blood pressure 67 mm[Hg] [facility] 09-07-2022 09:46-0400 Heart rate 86 /min [facility] 09-07-2022 09:46-0400 SaO2% (BldA) [Mass fraction] 97 % [facility] 09-07-2022 09:46-0400 Systolic blood pressure 106 mm[Hg] [facility] 09-04-2022 08:00-0400 Body height 157.48 cm Parris Thomas Other [facility] Other 09-04-2022 08:00-0400 Body mass index (BMI) [Ratio] 30.91 kg/m2 Parris Thomas Other [facility] Other 09-04-2022 08:00-0400 Body temperature 96.9 [degF] Parris Thomas Other [facility] Other 09-04-2022 08:00-0400 Body weight 76.66 kg Parris Thomas Other [facility] Other 09-04-2022 08:00-0400 Diastolic blood pressure 82 mm[Hg] Parris Thomas Other [facility] Other 09-04-2022 08:00-0400 Respiratory rate 20 /min Parris Thomas Other [facility] Other 09-04-2022 08:00-0400 SaO2% (BldA) [Mass fraction] 98 % Parris Thomas Other [facility] Other 09-04-2022 08:00-0400 Systolic blood pressure 128 mm[Hg] Parris Thomas Other [facility] Other 08-18-2022 13:05-0400 Hourly Rounding [facility]an [facility] 08-18-2022 13:05-0400 Promise to Return [facility]an [facility] 08-18-2022 12:32-0400 Heart rate 78 /min [facility] 08-18-2022 12:32-0400 Respiratory rate 16 /min [facility] 08-18-2022 12:32-0400 SaO2% (BldA) [Mass fraction] 99 % [facility]an [facility] 08-18-2022 12:22-0400 Heart rate 75 /min [facility] 08-18-2022 12:22-0400 Respiratory rate 18 /min [facility] 08-18-2022 12:22-0400 SaO2% (BldA) [Mass fraction] 98 % [facility]an [facility] 08-18-2022 12:00-0400 Hourly Rounding [facility] 08-18-2022 12:00-0400 Promise to Return Hasan [facility] 08-18-2022 11:43-0400 Heart rate 80 /min [facility] 08-18-2022 11:43-0400 SaO2% (BldA) [Mass fraction] 96 % [facility] 08-18-2022 11:43-0400 Body temperature 97.7 [degF] [facility] 08-18-2022 11:43-0400 Diastolic blood pressure 80 mm[Hg] [facility] 08-18-2022 11:43-0400 Mean blood pressure 98 mm[Hg] [facility] 08-18-2022 11:43-0400 Systolic blood pressure 134 mm[Hg] [facility] 08-18-2022 11:00-0400 Hourly Rounding Hasan [facility] 08-18-2022 11:00-0400 Promise to Return Hasan [facility] 08-18-2022 08:21-0400 Respiratory rate 16 /min [facility] 08-18-2022 07:33-0400 Body temperature 97.16 [degF] [facility] 08-18-2022 07:33-0400 Diastolic blood pressure 74 mm[Hg] [facility] 08-18-2022 07:33-0400 Mean blood pressure 94 mm[Hg] [facility] 08-18-2022 07:33-0400 Systolic blood pressure 133 mm[Hg] [facility] 08-17-2022 22:00-0400 Body temperature 97.88 [degF] [facility] 08-17-2022 22:00-0400 Diastolic blood pressure 72 mm[Hg] [facility] 08-17-2022 22:00-0400 Systolic blood pressure 123 mm[Hg] [facility] 08-17-2022 17:30-0400 Body temperature 98.06 [degF] [facility] 08-17-2022 17:29-0400 Mean blood pressure 74 mm[Hg] [facility] 08-17-2022 12:00-0400 Blood Pressure Location [facility] 08-17-2022 02:14-0400 Body temperature 97.34 [degF] [facility] 08-17-2022 02:14-0400 Mean blood pressure 105 mm[Hg] [facility] 08-16-2022 11:15-0400 Mean blood pressure 85 mm[Hg] [facility] 08-16-2022 08:51-0400 FIO2 50 % [facility] 08-16-2022 08:00-0400 Mean blood pressure 93 mm[Hg] [facility] 08-16-2022 02:48-0400 FIO2 50 % [facility] 08-15-2022 16:00-0400 Blood Pressure Location [facility] 08-15-2022 16:00-0400 Heart rate 92 /min [facility] 08-15-2022 15:23-0400 Respiratory rate 22 /min [facility] 08-15-2022 15:06-0400 Respiratory rate 26 /min [facility] 08-15-2022 14:07-0400 Respiratory rate 24 /min [facility] 08-15-2022 11:47-0400 SaO2% (BldA) [Mass fraction] 94.2 % Hasan [facility] [employer] [facility] 08-15-2022 11:39-0400 Heart rate 88 /min Hasynes [facility] 07-10-2022 16:15-0400 Body height 157.48 cm Parris Thomas Other [facility] Other 07-10-2022 16:15-0400 Body mass index (BMI) [Ratio] 32.37 kg/m2 Parris Thomas Other [facility] Other 07-10-2022 16:15-0400 Body temperature 97.3 [degF] Parris Thomas Other [facility] Other 07-10-2022 16:15-0400 Body weight 80.29 kg Parris Thomas Other [facility] Other 07-10-2022 16:15-0400 Diastolic blood pressure 78 mm[Hg] Parris Thomas Other [facility] Other 07-10-2022 16:15-0400 Respiratory rate 20 /min Parris Thomas Other [facility] Other 07-10-2022 16:15-0400 SaO2% (BldA) [Mass fraction] 94 % Parris Thomas Other [facility] Other 07-10-2022 16:15-0400 Systolic blood pressure 118 mm[Hg] Parris Thomas Other [facility] Other 04-20-2022 09:30-0500 Body height 157.48 cm Parris Thomas Other [facility] Other 04-20-2022 09:30-0500 Body mass index (BMI) [Ratio] 32 kg/m2 Parris Thomas Other [facility] Other 04-20-2022 09:30-0500 Body temperature 97.8 [degF] Parris Thomas Other [facility] Other 04-20-2022 09:30-0500 Body weight 79.38 kg Parris Thomas Other [facility] Other 04-20-2022 09:30-0500 Diastolic blood pressure 62 mm[Hg] Parris Thomas Other [facility] Other 04-20-2022 09:30-0500 Respiratory rate 20 /min Parris Thomas Other [facility] Other 04-20-2022 09:30-0500 SaO2% (BldA) [Mass fraction] 95 % Parris Thomas Other [facility] Other 04-20-2022 09:30-0500 Systolic blood pressure 110 mm[Hg] Parris Thomas Other [facility] Other 03-28-2022 09:00-0500 Body height 157.48 cm Parris Thomas Other [facility] Other 03-28-2022 09:00-0500 Body mass index (BMI) [Ratio] 32.19 kg/m2 Parris Thomas Other [facility] Other 03-28-2022 09:00-0500 Body temperature 97.2 [degF] Parris Thomas Other [facility] Other 03-28-2022 09:00-0500 Body weight 79.83 kg Parris Thomas Other [facility] Other 03-28-2022 09:00-0500 Diastolic blood pressure 80 mm[Hg] Parris Thomas Other [facility] Other 03-28-2022 09:00-0500 Respiratory rate 20 /min Parris Thomas Other [facility] Other 03-28-2022 09:00-0500 SaO2% (BldA) [Mass fraction] 96 % Parris Thomas Other [facility] Other 03-28-2022 09:00-0500 Systolic blood pressure 128 mm[Hg] Parris Thomas Other [facility] Other 02-05-2022 10:30-0400 Body height 157.48 cm Parris Thomas Other [facility] Other 02-05-2022 10:30-0400 Body mass index (BMI) [Ratio] 32.37 kg/m2 Parris Thomas Other [facility] Other 02-05-2022 10:30-0400 Body temperature 97.5 [degF] Parris Thomas Other [facility] Other 02-05-2022 10:30-0400 Body weight 80.29 kg Parris Thomas Other [facility] Other 02-05-2022 10:30-0400 Diastolic blood pressure 68 mm[Hg] Parris Thomas Other [facility] Other 02-05-2022 10:30-0400 Respiratory rate 20 /min Parris Thomas Other [facility] Other 02-05-2022 10:30-0400 SaO2% (BldA) [Mass fraction] 96 % Parris Thomas Other [facility] Other 02-05-2022 10:30-0400 Systolic blood pressure 98 mm[Hg] Parris Thomas Other [facility] Other 01-03-2022 14:00-0400 Body height 157.48 cm Parris Thomas Other [facility] Other 01-03-2022 14:00-0400 Body mass index (BMI) [Ratio] 31.46 kg/m2 Parris Thomas Other [facility] Other 01-03-2022 14:00-0400 Body temperature 96.8 [degF] Parris Thomas Other [facility] Other 01-03-2022 14:00-0400 Body weight 78.02 kg Parris Thomas Other [facility] Other 01-03-2022 14:00-0400 Diastolic blood pressure 74 mm[Hg] Parris Thomas Other [facility] Other 01-03-2022 14:00-0400 Respiratory rate 20 /min Parris Thomas Other [facility] Other 01-03-2022 14:00-0400 SaO2% (BldA) [Mass fraction] 97 % Parris Thomas Other [facility] Other 01-03-2022 14:00-0400 Systolic blood pressure 114 mm[Hg] Parris Thomas Other [facility] Other 10-06-2021 12:30-0400 Body height 157.48 cm Parris Thomas Other [facility] Other 10-06-2021 12:30-0400 Body mass index (BMI) [Ratio] 31.27 kg/m2 Parris Thomas Other [facility] Other 10-06-2021 12:30-0400 Body temperature 97.8 [degF] Parris Thomas Other [facility] Other 10-06-2021 12:30-0400 Body weight 77.57 kg Parris Thomas Other [facility] Other 10-06-2021 12:30-0400 Diastolic blood pressure 64 mm[Hg] Parris Thomas Other [facility] Other 10-06-2021 12:30-0400 Respiratory rate 20 /min Parris Thomas Other [facility] Other 10-06-2021 12:30-0400 SaO2% (BldA) [Mass fraction] 97 % Parris Thomas Other [facility] Other 10-06-2021 12:30-0400 Systolic blood pressure 106 mm[Hg] Parris Thomas Other [facility] Other 09-28-2021 07:53-0400 Body height 154.94 cm DO Parris Thomas Work Phone: [facility] 09-28-2021 07:53-0400 Body weight 78.47 kg DO Parris Thomas Work Phone: [facility] 01-24-2021 10:00-0400 Body height 157.48 cm Parris Thomas Other [facility] Other 01-24-2021 10:00-0400 Body mass index (BMI) [Ratio] 31.09 kg/m2 Parris Thomas Other [facility] Other 01-24-2021 10:00-0400 Body temperature 96.4 [degF] Parris Thomas Other [facility] Other 01-24-2021 10:00-0400 Body weight 77.11 kg Parris Thomas Other [facility] Other 01-24-2021 10:00-0400 Diastolic blood pressure 64 mm[Hg] Parris Thomas Other [facility] Other 01-24-2021 10:00-0400 Respiratory rate 20 /min Parris Thomas Other [facility] Other 01-24-2021 10:00-0400 SaO2% (BldA) [Mass fraction] 97 % Parris Thomas Other [facility] Other 01-24-2021 10:00-0400 Systolic blood pressure 110 mm[Hg] Parris Thomas Other [facility] Other Encounters Encounter Date Encounter Type Care Provider Facility Start: 01-09-2024 End: 01-09-2024 ambulatory PARRIS GUZMAN Facility:[facility] Start: 12-23-2023 End: 12-23-2023 ambulatory Ru Ferrera MD Facility:[facility] Start: 12-12-2023 End: 12-12-2023 ambulatory [facility] Work Phone: Start: 12-12-2023 End: 12-12-2023 Patient encounter procedure [facility] Work Phone: Start: 12-05-2023 End: 12-05-2023 ambulatory [facility] Work Phone: Start: 12-05-2023 End: 12-05-2023 Patient encounter procedure [facility] [place] Work Phone: Start: 12-02-2023 Non-patient / Non-visit [facility] [place] Work Phone: Start: 12-02-2023 End: 12-02-2023 ambulatory Ru Ferrera MD Facility:[facility] Start: 11-29-2023 Non-patient / Non-visit [facility] [place] Work Phone: Start: 11-25-2023 Non-patient / Non-visit [facility] [place] Work Phone: Start: 11-18-2023 End: 11-18-2023 ambulatory Ru Ferrera MD Facility:[facility] Start: 11-15-2023 End: 11-15-2023 ambulatory DO Parris Guzman Work Phone: [facility] Work Phone: Start: 11-15-2023 End: 11-15-2023 Patient encounter procedure DO Parris Thomas Work Phone: [facility] Work Phone: Start: 11-07-2023 Non-patient / Non-visit DO Set h Thomas Work Phone: [facility] Work Phone: Start: 11-04-2023 End: 11-04-2023 ambulatory Ru Ferrera MD Facility:[facility] Start: 10-28-2023 End: 10-28-2023 ambulatory Ru Ferrera MD Facility:[facility] Start: 09-24-2023 End: 09-24-2023 ambulatory DO Parris M. Thomas Work Phone: [facility] Work Phone: Start: 09-24-2023 End: 09-24-2023 Patient encounter procedure DO Parris Thomas Work Phone: [facility] Work Phone: Start: 09-23-2023 End: 09-23-2023 ambulatory DO Parris M. Thomas Work Phone: [facility] Work Phone: Start: 09-23-2023 End: 09-23-2023 Patient encounter procedure DO Parris Thomas Work Phone: [facility] [place] Work Phone: Start: 09-13-2023 Telephone encounter Mara brand MD Work Phone: Urology Comment on above: Patient Question Start: 09-12-2023 End: 09-12-2023 ambulatory PARRIS HENSLEY THOMAS Facility:[facility] Start: 09-12-2023 End: 09-12-2023 Patient encounter procedure Mara Monroy MD Work Phone: Urology Comment on above: Urge urinary inconti nence (Primary Dx); Pelvic pain in female; Nocturia Start: 09-11-2023 End: 09-11-2023 Emergency department patient visit PARRIS GUZMAN Facility:[facility] Start: 09-11-2023 Non-patient / Non-visit DO Arcadio Diazgles Work Phone: [facility] Work Phone: Start: 09-05-2023 End: 12-17-2023 ambulatory PARRIS DIAZGLES Facility:[facility] Start: 09-05-2023 End: 09-05-2023 Patient encounter procedure PARRIS GUZMAN [facility] Start: 09-05-2023 End: 12-17-2023 Recurring PARRIS GUZMAN [facility] Start: 09-04-2023 End: 09-04-2023 Departed Referred DO Parris Guzman Work Phone: [facility] [place] Work Phone: Start: 09-04-2023 End: 09-04-2023 ambulatory DO Parris Guzman Work Phone: [facility] Work Phone: Start: 09-04-2023 End: 09-04-2023 Patient encounter procedure [facility] Work Phone: Start: 08-26-2023 End: 08-27-2023 ambulatory Albert RODAS Facility:[facility] Start: 08-26-2023 End: 08-27-2023 ambulatory Gaston Horton Facility:[facility] Start: 08-26-2023 Emergency department patient visit Yosvany Villeda Facility:[facility] Start: 08-26-2023 End: 08-27-2023 Observation Albert RODAS [facility] Start: 08-16-2023 Non-patient / Non-visit [facility] Work Phone: Start: 08-12-2023 End: 08-12-2023 ambulatory DO Parris M. Thomas Work Phone: [facility] Work Phone: Start: 08-12-2023 End: 08-12-2023 Patient encounter procedure DO Parris Thomas Work Phone: [facility] Work Phone: Start: 07-25-2023 Non-patient / Non-visit DO Set h Thomas Work Phone: [facility] Work Phone: Start: 07-24-2023 Non-patient / Non-visit DO Set h Thomas Work Phone: [facility] Work Phone: Start: 07-17-2023 End: 07-17-2023 ambulatory DO Parris M. Thomas Work Phone: [facility] Work Phone: Start: 07-17-2023 End: 07-17-2023 Patient encounter procedure DO Parris Thomas Work Phone: [facility] Work Phone: Start: 07-16-2023 Non-patient / Non-visit DO Set h Thomas Work Phone: [facility] Work Phone: Start: 07-12-2023 End: 07-12-2023 ambulatory DO Parris M. Thomas Work Phone: [facility] Work Phone: Start: 07-12-2023 End: 07-12-2023 Patient encounter procedure DO Parris Thomas Work Phone: [facility] Work Phone: Start: 06-20-2023 End: 06-20-2023 ambulatory DO Parris M. Thomas Work Phone: [facility] Work Phone: Start: 06-20-2023 End: 06-20-2023 Patient encounter procedure DO Parris Thomas Work Phone: [facility] [place] Work Phone: Start: 05-22-2023 End: 05-22-2023 ambulatory DO Parris M. Thomas Work Phone: [facility] Work Phone: Start: 05-22-2023 End: 05-22-2023 Discharged Recurring DO Parris Thomas Work Phone: [facility] [place] Work Phone: Start: 05-22-2023 Registered Recurring DO Parris R uggles Work Phone: [facility] [place] Work Phone: Start: 05-14-2023 End: 05-14-2023 ambulatory Zuleyka Ross Other [facility] Other Start: 05-14-2023 Office outpatient vi sit 15 minutes Zuleyka Ross [facility] Start: 05-07-2023 End: 05-07-2023 ambulatory Zuleyka Ross Other [facility] Other Start: 05-07-2023 Telephone encounter Zuleyka Ross [facility] Start: 04-17-2023 End: 04-17-2023 ambulatory Zuleyka Ross Other [facility] Other Start: 04-17-2023 Telephone encounter Zuleyka Montanezw [facility] Start: 04-11-2023 End: 04-11-2023 ambulatory Parris Thomas Other [facility] Other Start: 04-11-2023 Telephone encounter Parris Thomas [facility] Start: 04-03-2023 End: 04-03-2023 ambulatory Zuleykarakesh Montanezw Other [facility] Other Start: 04-03-2023 Telephone encounter Zuleyka Montanezw [facility] Start: 03-15-2023 End: 03-15-2023 ambulatory Parris Thomas Other [facility] Other Start: 03-15-2023 Telephone encounter Parris Thomas [facility] Start: 03-13-2023 End: 03-13-2023 ambulatory Parris Thomas Other [facility] Other Start: 03-13-2023 Office outpatient vi sit 15 minutes Parris Thomas [facility] Start: 03-13-2023 Telephone encounter Zuleyka Montanezw [facility] Start: 03-12-2023 End: 03-12-2023 ambulatory Zuleyka Montanezw Other [facility] Other Start: 03-12-2023 Office outpatient vi sit 25 minutes Zuleyka Montanezw [facility] Start: 03-12-2023 Telephone encounter Zuleyka Montanezw [facility] Start: 03-06-2023 End: 03-06-2023 ambulatory Zuleyka Cody Other [facility] Other Start: 03-06-2023 Telephone encounter Zuleyka Montanezw [facility] Start: 02-22-2023 End: 02-22-2023 ambulatory Zuleyka Ross Other [facility] Other Start: 02-22-2023 Telephone encounter Zuleyka Ross [facility] Start: 02-21-2023 End: 02-21-2023 ambulatory Parris Thomas Other [facility] Other Start: 02-21-2023 Telephone encounter Parris Thomas [facility] Start: 02-14-2023 End: 02-14-2023 ambulatory Zuleyka Ross Other [facility] Other Start: 02-14-2023 Telephone encounter Zuleyka Ross [facility] Start: 02-12-2023 End: 02-12-2023 ambulatory Parris Thomas Other [facility] Other Start: 02-12-2023 Telephone encounter Parris Thomas [facility] Start: 02-11-2023 End: 02-11-2023 ambulatory Parris Thomas Other [facility] Other Start: 02-11-2023 Office outpatient vi sit 25 minutes Parris Thomas [facility] Start: 02-07-2023 End: 02-07-2023 ambulatory Zuleyka Ross Other [facility] Other Start: 02-07-2023 Telephone encounter Zuleyka Ross [facility] Start: 02-01-2023 End: 02-01-2023 ambulatory Parris Thomas Other [facility] Other Start: 02-01-2023 Office outpatient vi sit 25 minutes Parris Thomas [facility] Start: 01-31-2023 Telephone encounter Zuleyka Ross [facility] Start: 01-31-2023 End: 01-31-2023 Patient encounter procedure MD Cheko Rolon Jr Work Phone: [facility] [address] Work Phone: Start: 01-31-2023 End: 01-31-2023 ambulatory MD Cheko Rolon Jr Work Phone: [facility] Work Phone: Start: 01-29-2023 End: 01-29-2023 ambulatory Parris Thomas Other [facility] Other Start: 01-29-2023 Telephone encounter Parris Thomas [facility] Start: 01-23-2023 End: 01-23-2023 ambulatory Parris Thomas Other [facility] Other Start: 01-23-2023 Telephone encounter Parris Thomas [facility] Start: 01-22-2023 End: 01-22-2023 Emergency department patient visit MD Cheko Rolon Jr Work Phone: [facility] Work Phone: Start: 01-22-2023 End: 01-22-2023 ambulatory Parris Thomas Other [facility] Other Start: 01-22-2023 Telephone encounter Parris Thomas [facility] Start: 01-21-2023 End: 01-21-2023 ambulatory Parris Thomsa Other [facility] Other Start: 01-21-2023 Telephone encounter Parris Thomas [facility] Start: 01-18-2023 End: 01-18-2023 ambulatory Zuleyka Ross Other [facility] Other Start: 01-18-2023 Telephone encounter Zuleyka Linaresraw [facility] Start: 01-17-2023 End: 01-18-2023 Emergency department patient visit MD Cheko Rolon Jr Work Phone: [facility] Work Phone: Start: 01-15-2023 End: 01-15-2023 ambulatory Parris Thomas Other [facility] Other Start: 01-15-2023 Telephone encounter Parris Thomas [facility] Start: 01-10-2023 End: 01-10-2023 ambulatory Zuleyka Cody Other [facility] Other Start: 01-10-2023 Office outpatient ne w 60 minutes Zuleyka Cody [facility] Start: 01-07-2023 End: 01-07-2023 ambulatory Parris Thomas Other [facility] Other Start: 01-07-2023 Telephone encounter Parris Thomas [facility] Start: 01-02-2023 End: 01-02-2023 ambulatory Parris Thomas Other [facility] Other Start: 01-02-2023 Telephone encounter Parris Thomas [facility] Start: 12-31-2022 End: 12-31-2022 ambulatory Zuleyka Linaresraw Other [facility] Other Start: 12-31-2022 Telephone encounter Zuleyka Linaresraw [facility] Start: 12-27-2022 End: 12-27-2022 ambulatory Parris Thomas Other [facility] Other Start: 12-27-2022 Office outpatient vi sit 40 minutes Parris Thomas [facility] Start: 12-27-2022 Telephone encounter Parris Thomas [facility] Start: 12-20-2022 End: 12-20-2022 ambulatory Parris Thomas Other [facility] Other Start: 12-20-2022 Office outpatient vi sit 15 minutes Parris Thomas [facility] Start: 12-18-2022 End: 12-18-2022 ambulatory Parris Thomas Other [facility] Other Start: 12-18-2022 Telephone encounter Parris Thomas [facility] Start: 12-18-2022 End: 12-18-2022 Lab Drop off SAM LUKE [facility] Start: 11-29-2022 End: 11-29-2022 ambulatory Parris Thomas Other [facility] Other Start: 11-29-2022 Telephone encounter Parris Thomas [facility] Start: 11-28-2022 End: 11-28-2022 ambulatory Parris Thomas Other [facility] Other Start: 11-28-2022 Telephone encounter Parris Thomas [facility] Start: 11-27-[address] Gaston Alexander II Facility: Start: 11-26-2022 End: 11-26-2022 ambulatory Parris Thomas Other [facility] Other Start: 11-26-2022 Telephone encounter Parris Thomas [facility] Start: 11-25-2022 End: 11-29-2022 Evaluation and management of inpatient Tariq ALCALA [facility] Start: 11-05-2022 End: 11-05-2022 ambulatory Parris Thomas Other [facility] Other Start: 11-05-2022 Office outpatient vi sit 25 minutes Parris Thomas [facility] Start: 10-24-2022 End: 10-24-2022 Patient encounter procedure Bashar X [place] [facility] Start: 10-03-2022 End: 10-03-2022 ambulatory Parris Thomas Other [facility] Other Start: 10-03-2022 Telephone encounter Parris Thomas [facility] Start: 09-26-2022 End: 09-26-2022 Patient encounter procedure Bashar X [place] [facility] Start: 09-25-2022 End: 09-25-2022 ambulatory Parris Thomas Other [facility] Other Start: 09-25-2022 Telephone encounter Parris Thomas [facility] Start: 09-20-2022 End: 09-20-2022 ambulatory Chaparro Heck Other [facility] Other Start: 09-20-2022 Telephone encounter Chaparro Su [facility] Senior Managing Director Start: 09-11-2022 End: 09-11-2022 ambulatory Parris Thomas Other [facility] Other Start: 09-11-2022 Telephone encounter Parris Thomas [facility] Start: 09-07-2022 End: 09-07-2022 Patient encounter procedure Bashar X [place] [facility] Start: 09-06-2022 End: 09-06-2022 ambulatory Parris Thomas Other [facility] Other Start: 09-06-2022 Telephone encounter Parris Thomas [facility] Start: 09-04-2022 End: 09-04-2022 ambulatory Parris Thomas Other [facility] Other Start: 09-04-2022 Office outpatient vi sit 25 minutes Parris Thomas [facility] Start: 08-15-2022 End: 08-15-2022 ambulatory Parris Thomas Other [facility] Other Start: 08-15-2022 Telephone encounter Parris Thomas [facility] Start: 08-15-2022 End: 08-18-2022 Evaluation and management of inpatient Hasan AMIR [facility] Start: 08-10-2022 End: 08-10-2022 ambulatory Parris Thomas Other [facility] Other Start: 08-10-2022 Telephone encounter Parris Thomas [facility] Start: 08-02-2022 End: 08-02-2022 ambulatory Parris Thomas Other [facility] Other Start: 08-02-2022 Telephone encounter Parris Thomas [facility] Start: 07-18-2022 End: 07-18-2022 ambulatory Parris Thomas Other [facility] Other Start: 07-18-2022 Telephone encounter Parris Thomas [facility] Start: 07-10-2022 End: 07-10-2022 ambulatory Parris Thomas Other [facility] Other Start: 07-10-2022 Office outpatient vi sit 25 minutes Parris Thomas [facility] Start: 07-10-2022 Telephone encounter Parris Thomas [facility] Start: 07-02-2022 End: 07-02-2022 ambulatory Parris Thomas Other [facility] Other Start: 07-02-2022 Telephone encounter Parris Thomas [facility] Start: 05-02-2022 End: 05-02-2022 ambulatory Parris Thomas Other [facility] Other Start: 05-02-2022 Telephone encounter Parris Thomas [facility] Start: 04-20-2022 End: 04-20-2022 ambulatory Parris Thomas Other [facility] Other Start: 04-20-2022 Office outpatient vi sit 25 minutes Parris Thomas [facility] Start: 04-19-[address] Gaston Alvarez II Facility:[id number] Start: 04-11-2022 End: 04-11-2022 ambulatory Parris Thomas Other [facility] Other Start: 04-11-2022 Telephone encounter Parris Thomas [facility] Start: 04-06-[address] Gaston Alexander II Facility:[id number] Start: 04-06-2022 End: 04-06-2022 ambulatory DO Parris M. Thomas Work Phone: [facility] Work Phone: Start: 04-06-2022 End: 04-06-2022 Patient encounter procedure DO Parris Thomas Work Phone: [facility] Work Phone: Start: 03-28-2022 End: 03-28-2022 ambulatory Parris Thomas Other [facility] Other Start: 03-28-2022 Office outpatient vi sit 25 minutes Parris Thomas [facility] Start: 03-28-2022 Telephone encounter Parris Thomas [facility] Start: 03-07-2022 End: 03-07-2022 ambulatory Parris Thomas Other [facility] Other Start: 03-07-2022 Telephone encounter Parris Thomas [facility] Start: 02-26-2022 End: 02-26-2022 ambulatory Parris Thomas Other [facility] Other Start: 02-26-2022 Telephone encounter Parris Thomas [facility] Start: 02-14-2022 End: 02-14-2022 ambulatory Parris Thomas Other [facility] Other Start: 02-14-2022 Telephone encounter Parris Thomas [facility] Start: 02-05-2022 End: 02-05-2022 ambulatory Parris Thomas Other [facility] Other Start: 02-05-2022 Office outpatient vi sit 15 minutes Parris Thomas [facility] Start: 01-30-2022 End: 01-30-2022 ambulatory Parris Thomas Other [facility] Other Start: 01-30-2022 Telephone encounter Parris Thomas [facility] Start: 01-26-2022 End: 01-26-2022 ambulatory Parris Thomas Other [facility] Other Start: 01-26-2022 Telephone encounter Parris Thomas [facility] Start: 01-22-2022 End: 01-22-2022 ambulatory Parris Thomas Other [facility] Other Start: 01-22-2022 Telephone encounter Parris Thomas [facility] Start: 01-16-2022 End: 01-16-2022 ambulatory Parris Thomas Other [facility] Other Start: 01-16-2022 Telephone encounter Parris Thomas [facility] Start: 01-03-2022 End: 01-03-2022 ambulatory Parris Thomas Other [facility] Other Start: 01-03-2022 Office outpatient vi sit 25 minutes Parris Thomas [facility] Start: 01-03-2022 Telephone encounter Parris Thomas [facility] Start: 12-25-2021 End: 12-25-2021 ambulatory Parris Thomas Other [facility] Other Start: 12-25-2021 Telephone encounter Parris Thomas [facility] Start: 12-25-2021 End: 12-25-2021 Patient encounter procedure DO Parris Thomas Work Phone: [facility] Start: 12-01-2021 End: 12-01-2021 ambulatory Parris Thomas Other [facility] Other Start: 12-01-2021 Telephone encounter Parris Thomas [facility] Start: 11-13-2021 End: 11-13-2021 ambulatory Parris Thomas Other [facility] Other Start: 11-13-2021 Telephone encounter Parris Thomas [facility] Start: 11-09-2021 End: 11-09-2021 ambulatory Parris Thomas Other [facility] Other Start: 11-09-2021 Telephone encounter Parris Thomas [facility] Start: 11-08-2021 End: 11-08-2021 Patient encounter procedure DO Parris Thomas Work Phone: [facility] Start: 10-30-2021 End: 10-30-2021 ambulatory Parris Thomas Other [facility] Other Start: 10-30-2021 Telephone encounter Parris Thomas [facility] Start: 10-06-2021 End: 10-06-2021 ambulatory Parris Thomas Other [facility] Other Start: 10-06-2021 Office outpatient vi sit 25 minutes Parris Thomas [facility] Start: 09-29-2021 End: 09-29-2021 ambulatory Parris Thomas Other [facility] Other Start: 09-29-2021 Telephone encounter Parris Thomas [facility] Start: 09-28-2021 End: 09-28-2021 Patient encounter procedure DO Parris Thomas Work Phone: [facility] [place] Start: 09-26-2021 End: 09-26-2021 ambulatory Parris Thomas Other [facility] Other Start: 09-26-2021 Telephone encounter Parris Thomas [facility] Start: 09-20-2021 End: 09-20-2021 ambulatory Parris Thomas Other [facility] Other Start: 09-20-2021 Telephone encounter Parris Thomas [facility] Start: 09-13-2021 End: 09-13-2021 ambulatory Parris Thomas Other [facility] Other Start: 09-13-2021 Telephone encounter Parris Thomas [facility] Start: 08-29-2021 End: 08-29-2021 ambulatory Parris Thomas Other [facility] Other Start: 08-29-2021 Telephone encounter Parris Thomas [facility] Start: 08-07-2021 End: 08-07-2021 ambulatory Parris Thomas Other [facility] Other Start: 08-07-2021 Telephone encounter Parris Thomas [facility] Start: 08-03-2021 End: 08-03-2021 ambulatory Parris Thomas Other [facility] Other Start: 08-03-2021 Telephone encounter Parris Thomas [facility] Start: 07-28-2021 End: 07-28-2021 ambulatory Parris Thomas Other [facility] Other Start: 07-28-2021 Telephone encounter Parris Thomas [facility] Start: 07-10-2021 End: 07-10-2021 ambulatory Parris Thomas Other [facility] Other Start: 07-10-2021 Telephone encounter Parris Thomas [facility] Start: 06-26-2021 End: 06-26-2021 ambulatory Parris Thomas Other [facility] Other Start: 06-26-2021 Telephone encounter Parris Thomas [facility] Start: 05-26-2021 End: 05-26-2021 ambulatory Parris Thomas Other [facility] Other Start: 05-26-2021 Telephone encounter Parris Thomas [facility] Start: 05-24-2021 End: 05-24-2021 ambulatory Parris Thomas Other [facility] Other Start: 05-24-2021 Telephone encounter Parris Thomas [facility] Start: 04-26-2021 End: 04-26-2021 ambulatory Parris Thomas Other [facility] Other Start: 04-26-2021 Telephone encounter Parris Thomas [facility] Start: 04-24-2021 End: 04-24-2021 ambulatory Parris Thomas Other [facility] Other Start: 04-24-2021 Telephone encounter Parris Thomas [facility] Start: 03-24-2021 End: 03-24-2021 ambulatory Parris Thomas Other [facility] Other Start: 03-24-2021 Telephone encounter Parris Thomas [facility] Start: 03-08-2021 End: 03-08-2021 ambulatory Parris Thomas Other [facility] Other Start: 03-08-2021 Telephone encounter Parris Thomas [facility] Start: 03-06-2021 End: 03-06-2021 ambulatory Parris Thomas Other [facility] Other Start: 03-06-2021 Telephone encounter Parris Thomas [facility] Start: 02-20-2021 End: 02-20-2021 ambulatory Parris Thomas Other [facility] Other Start: 02-20-2021 Telephone encounter Parris Thomas [facility] Start: 02-13-2021 End: 02-13-2021 ambulatory Parris Thomas Other [facility] Other Start: 02-13-2021 Telephone encounter Parris Thomas [facility] Start: 01-24-2021 Office outpatient vi sit 25 minutes Parris Thomas [facility] Start: 01-24-2021 Telephone encounter Parris Thomas [facility] Start: 05-25-2020 End: 05-26-2020 Patient encounter procedure NONE LISTED REQUEST Facility: Start: 05-02-2020 End: 05-03-2020 Patient encounter procedure NONE LISTED REQUEST Facility: Start: 09-02-2019 End: 09-03-2019 Patient encounter procedure PARRISDaisy GUZMAN Facility: Procedures Date Procedure Procedure Detail Performing [...] Phone: Start: 12-09-2019 Catheterization of left heart Hasynes ALCALA Start: 11-17-2019 Antibody screen Comment on above: Order Comment: Trans fusion Status: CONSERVATION Blood Bank service requested: TYPE AND SCREEN Performed By: #### B [id number] #### Test performed at: [facility] [address] [place] [id number] Start: 11-17-2019 Electrocardiogram Start: 10-15-2018 trans-oburator mid u retheral sling bladder suspension Hasan AMIR Appendectomy Hasan AMIR Cholecystectomy Hasan AMIR Entire thumb (body structure) Hasan AMIR Comment on above: surgery Plan of Treatment Date Care Activity Detail Author Start: 01-17-2033 Urine microalbumin profile DTaP,Tdap,Td Vaccine (3 - Td or Tdap) [facility] Start: 09-10-2026 Diabetes Screening Diabetes Screenin g [facility] Start: 11-28-2023 End: 11-28-2023 Patient encounter procedure 11/28/2023 2:00 PM EDT Office Visit Urology [id number] [place], [place] [id number] Mara Monroy MD [address] [place] [address] botox Urology Comment on above: botox Start: 09-05-2023 Bacteria identified in Urine by Culture [facility] Start: 09-04-2023 Bacteria identified in Urine by Culture [facility] Start: 07-18-2023 Covid-19 Vaccine ( season) Covid-19 Vaccine () [facility] Start: 04-08-2023 Advance Directive Discussion Advance Directive Discussion [facility] Start: 04-08-2023 Behavioral Health Screening Behavioral Health Screening [facility] Start: 01-17-2023 Plain X-ray of left femur XR femur LT 2V* [facility] Start: 01-17-2023 Plain X-ray of left tibia and left fibula XR tibia fibula LT 2V* [facility] Start: 01-17-2023 X-ray of left knee XR knee LT 2V Fir [facility] Start: 01-17-2023 XR Femur - left 2 Views [facility] Start: 01-17-2023 XR Knee - left 2 Views [facility] Start: 01-17-2023 XR Tibia and Fibula - left 2 Views [facility] Start: 2014 Screening for osteoporosis Bone Density Screening [facility] Start: 2009 RSV Vaccine (1 - 1-d ose 60+ series) RSV Vaccine (1 - 1-dose 60+ series) [facility] Start: 11-02-1999 Shingrix Vaccine (1 of 2) Shingrix Vaccine (1 of 2) [facility] Start: 1994 Lipid panel Lipid Screening [facility] Start: 1994 Screening for malign ant neoplasm of colon [facility] Start: 1989 Screening for malign ant neoplasm of breast Mammogram Screening [facility] Start: 11-02-1967 Hepatitis C screening Hepatitis C Sc [facility] BOTOX/CYSTO BOTOX/CYSTO Proc edures Routine Urge urinary incontinence Ordered: 09/12/2023 [facility] Work Phone: Comment on above: Ordered: 09/12/2023 Patient Education [facility] Work Phone: Patient referral [facility] Work Phone: XR Chest 2 Views [facility] Immunizations Immunization Date Immunization Notes Care Provider Fa cilitian 03-18-2023 COVID-19 Vaccine Pfizer - Documentation Purposes Only Parris Thomas Other [facility] 02-01-2023 influenza, injectable, quadrivalent, preservative free DO Parris Thomas Work Phone: [facility] 02-01-2023 influenza, injectable, quadrivalent, contains preservative Parris Thomas Other [facility] Other 01-17-2023 tetanus toxoid, reduced diphtheria toxoid, and acellular pertussis vaccine, adsorbed MD Cheko Rolon Jr Work Phone: [facility] 01-15-2022 COVID-19 Pfizer (bivalent) Parris Thomas Other [facility] 01-15-2022 influenza, high dose seasonal, preservative-free Parris Thomas Other [facility] Other 01-15-2022 influenza virus vaccine, unspecified formulation DO Parris Thomas Work Phone: [facility] 08-08-2021 COVID-19 Vaccine Pfizer - Documentation Purposes Only Parris Thomas Other [facility] 08-08-2021 pneumococcal polysaccharide vaccine, 23 valent Parris Thomas Other [facility] 01-10-2021 influenza virus vaccine, unspecified formulation DO Parris Thomas Work Phone: [facility] 01-10-2021 influenza, high dose seasonal, preservative-free Parris Thomas Other [facility] [employer] Other 05-25-2020 Do not use COVID-19 Pfizer 2 dose Parris Thomas Other [facility] 05-02-2020 Do not use COVID-19 Pfizer 2 dose Parris Thomas Other [facility] 01-21-2020 influenza, seasonal, injectable Parris Thomas Other [facility] 12-29-2018 influenza virus vaccine, unspecified formulation DO Parris Thomas Work Phone: [facility] 12-29-2018 influenza, high dose seasonal, preservative-free Parris Thomas Other [facility] Other 01-01-2018 influenza virus vaccine, unspecified formulation DO Parris Thomas Work Phone: [facility] 01-01-2018 influenza, high dose seasonal, preservative-free Parris Thomas Other [facility] Other 01-23-2017 influenza, high dose seasonal, preservative-free Parris Thomas Other [facility] Other 01-23-2017 influenza virus vaccine, unspecified formulation DO Parris Thomas Work Phone: [facility] 01-23-2017 influenza, injectable, quadrivalent, contains preservative Patient Objection Parris Thomas Other [facility] Other 10-03-2016 Toradol per 15 mg Parris Ruggl es Other [facility] Other 07-18-2016 pneumococcal conjugate vaccine, 13 valent Parris Thomas Other [facility] 01-18-2016 influenza, injectable, quadrivalent, contains preservative Patient Objection Parris Thomas Other [facility] Other 12-19-2015 influenza, injectable, quadrivalent, contains preservative Patient Objection Parris Thomas Other [facility] [employer] Other 08-03-2015 tetanus toxoid, reduced diphtheria toxoid, and acellular pertussis vaccine, adsorbed Parris Thomas Other [facility] 08-02-2015 tetanus toxoid, adsorbed Parris Thomas Other [facility] 01-17-2015 influenza, injectable, quadrivalent, preservative free DO Parris Thomas Work Phone: [facility] 01-17-2015 influenza, injectable, quadrivalent, contains preservative Parris Thomas Other [facility] [employer] Other 01-26-2014 influenza, injectable, quadrivalent, preservative free Parris Thomas Other [facility] Other 01-26-2014 influenza, injectable, quadrivalent, contains preservative DO Parris Thomas Work Phone: [facility] 01-15-2011 influenza virus vaccine, unspecified formulation DO Parris Thomas Work Phone: [facility] 01-15-2011 influenza virus vaccine, split virus (incl. purified surface antigen) Parris Thomas Other [facility] Other 02-06-2008 pneumococcal polysaccharide vaccine, 23 valent Parris Thomas Other [facility] NEGATED: Highlighted row has not occurred! 7 influenza, injectable, quadrivalent, contains preservative Patient Objection Parris Thomas Other [facility] Other NEGATED: Highlighted row has not occurred! 6 influenza, injectable, quadrivalent, contains preservative Patient Objection Parris Thomas Other [facility] Other NEGATED: Highlighted row has not occurred! 6 influenza, injectable, quadrivalent, contains preservative Patient Objection Parris Thomas Other [facility] Other Payers Date Payer Category Payer Unknown 2014 Medicare [id number] 1959 Medicare [id number] 1959 Self-pay 1959 Unknown [id number] 1949 Unknown [id number] 2.16.84 0.1.146405.3.579.2.593 1949 Unknown [id number] 2.16. 840.1.882168.3.579.2.356 1949 Unknown [id number] 2.16. 840.1.908564.3.579.2.356 1949 Unknown [id number] 2.16. 840.1.995475.3.579.2.356 1949 Unknown [id number] 2.16.8 40.1.112867.3.579.2.727 1949 Unknown [id number] 2.16.8 40.1.810940.3.579.2.727 1949 Unknown [id number] 2.16.8 40.1.826358.3.579.2.727 1949 Unknown [id number] 2.16.8 40.1.896914.3.579.2.727 1949 Unknown [id number] 2.16.8 40.1.402798.3.579.2.727 1949 Unknown [id number] 2.16.8 40.1.981026.3.579.2.727 1949 Unknown [id number] 2.16.8 40.1.819701.3.579.2.727 1949 Unknown [id number] 2.16.8 40.1.713607.3.579.2.727 1949 Unknown [id number] 2.16.8 40.1.592733.3.579.2.727 1949 Unknown [id number] 2.16. 840.1.125225.3.579.2.196 1949 Unknown [id number] 2.16. 840.1.071225.3.579.2.196 1949 Unknown [id number] 2.16. 840.1.709473.3.579.2.196 1949 Unknown [id number] 2.16. 840.1.802126.3.579.2.196 1949 Unknown [id number] 2.16. 840.1.771670.3.579.2.196 Medicare Medicare Nonpatient [id number] Unknown [id number] 2.16.84 0.1.373280.3.579.2.593 Unknown [id number] 2.16.84 0.1.014695.3.579.2.593 Unknown [facility] [id number] Unknown [id number] 2.16.8 40.1.393820.3.579.2.531 Unknown [id number] 2.16.8 40.1.610199.3.579.2.531 Unknown [id number] 2.16.8 40.1.329158.3.579.2.531 Unknown [id number] 2.16.8 40.1.190776.3.579.2.531 Unknown [id number] 2.16.8 40.1.816973.3.579.2.531 Social History Date Type Detail Facility Unknown if ever smoked [facility] Other Start: 09-12-2023 Sex Assigned At [facility] Start: 11-08-2021 End: 10-24-2022 Tobacco smoking status ARIS Ex-smoker (finding) [facility] Comment on above: patient quit smoking in July 2018 Start: 1950 Sex Assigned At Female [facility] Start: 01-17-2023 Tobacco smoking status ARIS Current some day smoker [facility] Start: 01-22-2023 Tobacco smoking status ARIS Never smoked tobacco (finding) [facility] Tobacco smoking status ARIS Tobacco smoking consumption unknown [facility] Start: 09-12-2023 History of Social function [facility] National Score (1-100), lower number is lower risk 62 [facility] Start: 1950 Sex Assigned At Not on file [facility] Medical Equipment Procedure Code Equipment Code Equipment Origin al Text Equipment Identifier Dates Colporrhaphy, anteroposterior, for repair of cystocele, rectocele or enterocele Stress urinary incontinence surgical mesh, female ()[id number] FDA Start: 12-27-2021 Functional Status Date Assessment Result Facility 08-26-2023 Functional Status No [facility] 08-26-2023 Functional Status [facility] 11-26-2022 Functional Status No [facility] 11-25-2022 Functional Status [facility] 10-24-2022 Functional Status No [facility] 09-07-2022 Functional Status No [facility] 08-15-2022 Functional Status N/A [facility] Clinical Notes 06-07-2011 to 01-09-2024 Note Date & Type Note Facility 01-09-2024 Note HNO ID: [id number] Author: MARA MONROY MD Service: ? Author Type: Physician Type: Progress Notes Filed: 01/09/2024 15:42 Note Text: Cystoscopy Primary Indication: Urge Incontinence Review of Systems is unchanged. Risks, benefits, alternatives and personnel discussed with patient who consents to proceed.The patient understands that the Botox is use of the medication in the bladder and the risks of injection were discussed with the patient. The patient understands, agrees and wishes to proceed. A presurgical checklist was performed. The patient was prepped and draped in sterile fashion. A straight cath was inserted by the nurse and the bladder drained. 100mL of 2% lidocaine was instilled and the catheter was removed. Cystoscopy Findings: nl u/o bilaterally, no mucosal lesions in bladder, bladder neck or urethra Bladder onabotulinum toxinA Injection Botox 100 IU was administered to detrusor musculature in 10 injections of 1.0 cc per injection site. No bleeding was noted upon injections. The patient tolerated the injections well. The bladder was emptied and antibiotics were administered to the patient po. 73 yo with refractory OAB/UUI s/p bladder Botox injection today FU 2 mo Based on the patient's response she/he will need repeat injections every 6 months or so as the Botox will wear off. Mara Monroy MD [facility] 01-09-2024 Note HNO ID: [id number] Author: RUSSEL DAVISON MA Service: ? Author Type: Field Case Manager Type: Procedures Filed: 01/09/2024 15:42 Note Text: UNIVERSAL PROTOCOL / SAFETY CHECKLIST Procedure to be Performed: cysto with Botox Sign In: A Moment of CARE was completed. Personnel directly involved with the procedure wore the appropriate PPE (Personal Protective Equipment). No special equipment needed. Patient/Surrogate Stated/Verified: PATIENT VERIFIED(optional for EMERGENT procedures): Patient name, Date of , Relevant allergies, and The intended procedure Time Out Communication: Intended patient and procedure match the source documents. Consent documented and matches the intended procedure. Relevant labs, photos, and/or imaging studies have been reviewed. No correct side/site applicable for marking and visibility. Medications required for procedure verified. Fire risk assessed and interventions discussed. No implant(s) inserted. Sign Out: SIGN OUT (optional for EMERGENT procedures): All specimen containers correctly labeled. All instruments, equipment, possible retained foreign bodies accounted for. Post-procedure follow-up management communicated and Plan of Care Visit completed when applicable. EMILEE Thompson MD [facility] [facility] Evaluation note Authored September 23, 2023 11:56am *Progress note was completed with the assistance of voice recognition software for dictation purposes. Please excuse any grammatical errors that were not corrected during review process. [facility] Work Phone: 1(623) 509-473106-07-2024 Telephone encounter Note* Telephone Encounter - Arlet Aguayo LPN - 09/13/2023 1:43 PM EDT Notified per Dr. Monroy to hold plavix 5 days before She will call prescribing Dr. Donal roberts sure they are aware and okay with this [facility]06-07-2024 Miscellaneous Notes* Telephone Encounter - Arlet Aguayo LPN - 09/13/2023 1:43 PM EDT Notified per Dr. Monroy to hold plavix 5 days before She will call prescribing DrMichael roberts sure they are aware and okay with this * Telephone Encounter - Charlotte Jones - 09/13/2023 10:42 AM EDT Pt scheduled for cystoscopy botox. Pt on plavix every other day. Please review and advise. No chief complaint on file. Patient has been identified by name and birthdate. Duration of symptoms: N/A Person calling: self Call patient at: on cell [phone] (home) [phone] (cell) Was an appointment scheduled: No Closing statement: Results or non-symptom based questions: Thank you for calling [facility], your call will be returned within the next business day. Charlotte Peña documented in [facility] Telephone encounter Note * Telephone Encounter - Charlotte Jones - 09/13/2023 10:42 AM EDT Pt scheduled for cystoscopy botox. Pt on plavix every other day. Please review and advise. No chief complaint on file. Patient has been identified by name and birthdate. Duration of symptoms: N/A Person calling: self Call patient at: on cell [phone] (home) [phone] (cell) Was an appointment scheduled: No Closing statement: Results or non-symptom based questions: Thank you for calling [facility], your call will be returned within the next business day. Charlotte Peña [facility]06-06-2024 History of Present illness Narrative* Mara Monroy MD - 09/12/2023 4:00 PM EDT Images from the original note were not included. [facility]EMALE PELVIC MEDICINE AND RECONSTRUCTIVE SURGERY NEW PATIENT CLINIC NOTE SERVICE DATE: 09/12/2023 SERVICE TIME: 2:11 PM NAME: Nicole Lomeli REFERRED BY: Consultation requested by Dr. Kim Harris [address] [facility] [address] for an opinion regarding pelvic organ prolapse. [...] the note. Mara Monroy MD Urology Staff [facility] Female Pelvic Medicine and Reconstructive Surgery * Yaneli He RN - 09/12/2023 3:43 PM EDT PVR = 0 cc/ml via bladder scan documented in this encounter[facility] NoteHNO ID: [id number] Author: MARA MONROY MD Service: ? Author Type: Physician Type: Progress Notes Filed: 09/12/2023 16:49 Note Text: [facility] [place] [facility] PELVIC MEDICINE AND RECONSTRUCTIVE SURGERY NEW PATIENT CLINIC NOTE SERVICE DATE: 09/12/2023 SERVICE TIME: 2:11 PM NAME: Nicole Lomeli REFERRED BY: Consultation requested by Dr. Kim Harris [address] [facility] [address] for an opinion regarding pelvic organ prolapse. [...] late afternoon/early evening, approxim (more content not included)...[facility]06-06-2024 NoteHNO ID: [id number] Author: YANELI HE RN Service: ? Author Type: Registered Nurse Type: Progress Notes Filed: 09/12/2023 16:49 Note Text: PVR = 0 cc/ml [facility] [id number] NoteHNO ID: [id number] Author: RASHIDA DEY RT(R) Service: ? Author [...] PATIENT PRESENTS WITH AN IMPLANTABLE OR ATTACHED VACUUM TESTER CANS: No RADIOLOGY DEPARTMENT: CT; Exam(s) Completed: Abdomen/Pelvis PERIPHERAL IV DATA: Site assessment: Clean,Dry and Intact, Site disposition Left in for next appointment SIGNED BY: RT Siena(R) September 11, 2023 4:31 [id number] NoteAdmission and Discharge Information Admitting Physician - Albert RODAS DO Consulting Physician - [facility] Cardio, XXXX Radha MORFIN, Reid Junior Admitting [...] WBC of 17.4, CO2 of 33, Pro- Nik 0.07, chest x-ray stable. Prior to arrival [...] 100 mcg-25 mcg in (more content not included)...[facility] CenterComment on above:Result Comment: Electronically Signed By: Gaston Horton DO\.br\Date and Time Signed: 08/29/23 11:08 [id number] Evaluation + Plan noteExtracted from: Title:Discharge Note [...] 50,000 intl units (1.25 mg) oral capsule, 40482 International_Unit= 1 cap(s), Oral, Saturday Xanax 0.25 mg Tab, 0.25 mg= 1 tab(s), Oral, BID, PRN With When Contact Information Radha MORFIN, Reid Junior, CAR Within 2 to 4 weeks Additional Instructions: Call for followup appointment PARRIS GUZMAN DO, [facility] Within 2 to [address] [address]- Additional Instructions: Call for followup appointment Nonspecific Chest Pain, Adult, Myre-ol-Hfjk Urinary Tract Infection, Adult, Rqta-zd-Tndo Extracted from: Title:Consult Note Author:Angélica VASQUES, Cheko [...] Ordered: Initial Hospital Care/Day Moderate 55 Minutes 13604 2. Leukocytosis (D72.829: Elevated white blood cell [...] Rflx Extracted from: Title:ED Note Author:Yosvany Villeda DO Date :08/26/23 Chest pain (R07.9: Chest isabel [...] Location:.Pulmonary Rehab Appointment Type:CAR Pulmonary Rehab () [facility]05-21-2024 NoteAdmission and Discharge Information Admitting Physician - Albert RODAS DO Consulting Physician - [facility] Cardio, XXXX Radha MORFIN, Reid Junior Admitting [...] WBC of 17.4, CO2 of 33, Pro- Nik 0.07, chest x-ray stable. Prior to arrival [...] 100 mcg-25 mcg in (more content not included)...[facility] CenterComment on above:Result Comment: Electronically Signed By: Gaston Horton DO\.br\Date and Time Signed: 08/27/23 09:57 [id number] Hospital Discharge instructions Patient Education 08/27/2023 09:33:09 Nonspecific Chest Pain, Adult, Ybsn-kb-Izqy Nonspecific Chest Pain Chest pain can be [...] Follow these instructions at home: Medicines Take vnos-yuf-apfxdlc and prescription medicines only as told by [...] ?Eating a heart-healthy diet. A diet and holistic nutritionist (dietitian) can help you to learn healthy [...] provider. Document Revised: 06/08/2021 Document Reviewed: 06/08/2021 [employer] Patient Education 2022 [employer] 08/27/2023 09:33:04 Urinary Tract Infection, Adult, Ivms-et-Hiwz Urinary Tract Infection, Adult A urinary tract [...] Follow these instructions at home: Medicines Take pdst-zma-dnbzjdn and prescription medicines only as told by [...] provider. Document Revised: 11/04/2020 Document Reviewed: 11/04/2020 [employer] Patient Education 2022 Lang-8 Follow Up Care 08/26/2023 03:51:08 With:Radha MORFIN, Reid Jnuior, ISI Address: When:2 to 4 weeks Comments:Call for followup appointment With:PARRIS GUZMAN DO [facility] Address: [address] [place] [address]- When:2 to 3 days Comments:Call for followup appointment [facility]05-20-2024 NoteEchocardiology Procedure Exam Date/Time Accession # Ordering Echo Transthoracic 08/26/2023 14:40 EDT [id number] Gaston Horton DO CPT code 45345 19355 Reason for Exam (Echo Transthoracic Complete) Chest pain Report [facility] [address] [place] [address] Adult Echocardiogram Report Name: NICOLE LOMELI Study Date: 08/26/2023 02:02 PM BP: 126/65 mmHg Patient Location: [address] HR: 79 : 1950 Gender: Female Height: 62 in Age: 72 yrs Ethnicity: T Weight: 185 lb Reason For Study: Chest pain BSA: 1.9 m2 History: Smoker-Quit,COPD,Obesity Ordering Physician: Sol^Gaston^Nir. Performed By: Maureen Sarabia, [facility] Interpretation Summary Left ventricular systolic function is [...] Reid Garcia MD Transcribed by: JUSTYN Technologist: [facility]05-20-2024 Note Chief Complaint Left sided chest pain [...] WBC of 17.4, CO2 of 33, Pro- Nik 0.07, chest x-ray stable. Prior to arrival EMS had given her 4 baby aspirin, 4 mg Zofran, sublingual nitro. Discussed CODE STATUS with patient would like to be full code. Review of Systems Scoring Kern Fall Risk Score: 35 (08/26/23) Physical Exam [...] 04:26:00) Lymph Auto: 29.7 % (08/26/23 04:26:00) [place] Auto: 7.4 % (08/26/23 04:26:00) Eos Auto: 1.3 % (08/26/23 04:26:00) Basophil Auto: 0.2 % (08/26/23 04::00) Neutro Absolute: 10.7 E9/L High (08/26/23 04:26:00) Lymph Absolute: 5.2 E9/L High (08/26/23 04:26:00) [place] Absolute: 1.3 E9/L High (08/26/23 04:26:00) Eos [...] Ordered: Initial Hospital Care/Day Moderate 55 Minutes 40434 2. Leukocytosis (D72.829: Elevated white blood cell [...] obstructive pulmonary disease) (J (more content not included)...[facility] CenterComment on above:Result Comment: Electronically Signed By: Gaston Horton DO\geovanny\Date and Time Signed: 08/26/23 08:44 [id number] Progress note Author Michaela Fernandez [facility] May 22, 2023 9:25am Note Date/Time May 22, 2023 9:25am [facility] [address] [place] [address] Wound Center Provider Note Signed Patient: Nicole Lomeli MR#: [id number] : 1950 Acct:[id number] Age/Sex: 72 / F Copies to: DO Michaela Hui APRN~ HPI Date of Visit Date of Visit: Date of Service: 05/22/2023 Time of Service: 09:23 Narrative HPI: 04/11/23 Nicole is a 72-year-old female presenting to [facility] wound care program for an initial visit for evaluation and treatment of a traumatic wound of her left knee where she had fallen in her home over her oxygen tubing. She does currently have home health care through [facility] and this should continue. The area was [...] more granulation tissue showing, 2 week appt, [facility] to continue, no infection noted 05/22/23 much better, almost healed, same orders as last visit, no infection signs, 2 week appt Subjective Pain Left Knee: Pain Description: Intermittent Pain Intensity: 0 Wound/Ulcer History When did wound start?: January 17 2023 left knee from a fall Mode of Arrival/ Food And Beverage Assistant: Personal vehicle Lives with:: Spouse Appetite Description: Within Normal Limits Who helps w/ dressing change?: Home Health Why Do You Need Help?: Taxing effort to leave home Smoking Status: Former smoker [facility] Medical History (Updated 05/08/23 @ 09:07 by [...] Knee: Type: Traumatic Thickness: Full Bed Appearance: Fowler and Yellow Percent of Wound Bed Granulated/Red: [...] 10 Dictated By: Michaela Fernandez APRN DD/ 2 Signed By: <Electronically signed by CYNDY Fernandez> 05/22/23924 [facility] Work Phone: 1(902) 645-293502-06-2024 Evaluation note* Encounter Date Diagnosis Assessment Notes [...] Dr. Guzman regarding recent increase in SOB [facility] Other 01-31-2024 Progress note Author Michaela Fernandez [facility] May 08, 2023 9:07am Note Date/Time May 08, 2023 9 :06am [facility] [address] [place] [address] Wound Center Provider Note Signed Patient: Nicole Lomeli MR#: [id number] : 1950 Acct:[id number] Age/Sex: 72 / F Copies to: Parris Guzman,DO Michaela Fernandez APRN~ HPI Date of Visit Date of Visit: Date of Service: 05/08/2023 Time of Service: 09:05 Narrative HPI: 04/11/23 Nicole is a 72-year-old female presenting to [facility] wound care program for an initial visit for evaluation and treatment of a traumatic wound of her left knee where she had fallen in her home over her oxygen tubing. She does currently have home health care through [facility] and this should continue. The area was [...] more granulation tissue showing, 2 week appt, c to continue, no infection noted Subjective Pain Left Knee: Pain Intensity: 0 Pain Management Techniques Other/Comment: Stings Wound/Ulcer History When did wound start?: January 17 2023 left knee from a fall Mode of Arrival/ Food And Beverage Assistant: Personal vehicle Lives with:: Spouse Appetite Description: Within Normal Limits Who helps w/ dressing change?: Home Health Why Do You Need Help?: Taxing effort to leave home Smoking Status: Former smoker [facility] Medical History (Updated 05/08/23 @ 09:07 by [...] Knee: Type: Traumatic Thickness: Full Bed Appearance: Fowler and Yellow Percent of Wound Bed Granulated/Red: [...] 12 Dictated By: Michaela Fernandez APRN DD/ 4 Signed By: <Electronically signed by CYNDY Fernandez> 05/08/23 0907 [facility] Work Phone: 1(792) 205-270401-30-2024 Evaluation note* Encounter Date Diagnosis Assessment Notes Treatment Notes Treatment Clinical Notes Apr, Chronic pain (ICD-10 - G89.29) OARRS reviewed, consistent with Rx [facility] Other 01-17-2024 Progress note Author Michaela Fernandez [facility] April 24, 2023 11:49am Note Date/Time April 24, 2023 1 1:48am [facility] [address] [place] [address] Wound Center Provider Note Signed Patient: Nicole Lomeli MR#: [id number] : 1950 Acct:[id number] Age/Sex: 72 / F Copies to: Parris Guzman,DO Michaela Fernandez APRN~ HPI Date of Visit Date of Visit: Date of Service: 04/24/2023 Time of Service: 11:47 Narrative HPI: 04/11/23 Nicole is a 72-year-old female presenting to [facility] wound care program for an initial visit for evaluation and treatment of a traumatic wound of her left knee where she had fallen in her home over her oxygen tubing. She does currently have home health care through [facility] and this should continue. The area was [...] knee from a fall Mode of Arrival/ Food And Beverage Assistant: Personal vehicle Lives with:: Spouse Appetite Description: Within Normal Limits Who helps w/ dressing change?: Home Health Why Do You Need Help?: Taxing effort to leave home Smoking Status: Former smoker [facility] Medical History (Updated 04/24/23 @ 11:49 by [...] Knee: Type: Traumatic Thickness: Full Bed Appearance: Fowler and Yellow Percent of Wound Bed Granulated/Red: [...] 10 Dictated By: Michaela Fernandez APRN DD/ 1147 Signed By: <Electronically signed by CYNDY Fernandez> 04/24/23 1149 [facility] Work Phone: 1(724) 321-410701-10-2024 Evaluation note* Encounter Date Diagnosis Assessment Notes Treatment Notes Treatment Clinical Notes Apr, Chronic pain (ICD-10 - G89.29) OARRS reviewed, consistent with Rx [facility] Other 01-04-2024 Progress note Author Michaela Fernandez [facility] April 11, 2023 7:24am Note Date/Time April 11, 2023 7: 24am [facility] [address] [place] [address] Wound Center Provider Note Signed Patient: Nicole Lomeli MR#: [id number] : 1950 Acct:[id number] Age/Sex: 72 / F Copies to: Parris Guzman,DO Michaela Fernandez APRN~ HPI Date of Visit Date of Visit: Date of Service: 04/11/2023 Time of Service: 07:19 Narrative HPI: 04/11/23 Nicole is a 72-year-old female presenting to [facility] wound care program for an initial visit for evaluation and treatment of a traumatic wound of her left knee where she had fallen in her home over her oxygen tubing. She does currently have home health care through [facility] and this should continue. The area was [...] knee from a fall Mode of Arrival/ Food And Beverage Assistant: Personal vehicle Lives with:: Spouse Appetite Description: Within Normal Limits Who helps w/ dressing change?: Home Health Why Do You Need Help?: Taxing effort to leave home Smoking Status: Former smoker [facility] Medical History (Updated 04/11/23 @ 07:22 by [...] Type: Traumatic Thickness: Full Bed Appearance: Brown, Fowler and Yellow Percent of Wound Bed Granulated/Red: [...] 18 Dictated By: Michaela Fernandez APRN DD/ 8 Signed By: <Electronically signed by CYNDY Fernandez> 04/11/23723 [facility] Work Phone: 1(630) 893-719312-27-2023 Evaluation note* Encounter Date Diagnosis Assessment Notes Treatment Notes Treatment Clinical Notes Mar, Chronic pain (ICD-10 - G89.29) OARRS reviewed, consistent with Rx [facility] Other 12-08-2023 Evaluation note* Encounter Date Diagnosis Assessment Notes Treatment Notes Treatment Clinical Notes Mar, Thrush, oral (ICD-10 - B37.0) Mar, Wheeze (ICD-10 - R06.2) Mar, COPD (chronic obstructive pulmonary disease) (ICD-10 - J44.9) [facility] Other 12-08-2023 Evaluation note* Encounter Date Diagnosis Assessment Notes Treatment Notes Treatment Clinical Notes Mar, Thrush, oral (ICD-10 - B37.0) Mar, COPD (chronic obstructive pulmonary disease) (ICD-10 - J44.9) [facility] Other 12-06-2023 Evaluation note* Encounter Date Diagnosis Assessment Notes Treatment Notes Treatment Clinical Notes Mar, Thrush, oral (ICD-10 - B37.0) E Rx sent. Certainly patient to call with results. Mar, COPD without exacerbation (ICD-10 - J44.9) Pt to contact office after Apr 08 - would be happy to [facility] Pulm Rehab. [facility] Other 12-06-2023 Evaluation note* Encounter Date Diagnosis Assessment Notes Treatment Notes Treatment Clinical Notes Mar, Chronic pain (ICD-10 - G89.29) [facility] Other 12-05-2023 Evaluation note* Encounter Date Diagnosis [...] with Dr. Guzman Would like referral to [facility] Pulmonary Rehab after the first of the year using PFT from September ([facility]) [facility] Other 12-05-2023 Evaluation note* Encounter Date Diagnosis Assessment Notes Treatment Notes Treatment Clinical Notes Mar, Chronic pain (ICD-10 - G89.29) OARRS reviewed, consistent with Rx [facility] Other 12-05-2023 Evaluation note* Encounter Date Diagnosis Assessment Notes Treatment Notes Treatment Clinical Notes Mar, Chronic pain (ICD-10 - G89.29) Resending medication to [facility] Other 11-29-2023 Evaluation note* Encounter Date Diagnosis Assessment Notes Treatment Notes Treatment Clinical Notes Feb, Chronic pain (ICD-10 - G89.29) OARRS reviewed, consistent with Rx [facility] Other 11-17-2023 Evaluation note* Encounter Date Diagnosis Assessment Notes Treatment Notes Treatment Clinical Notes Feb, Chronic pain (ICD-10 - G89.29) OARRS reviewed, consistent with Rx [facility] Other 11-09-2023 Evaluation note* Encounter Date Diagnosis Assessment Notes Treatment Notes Treatment Clinical Notes Feb, Chronic pain (ICD-10 - G89.29) [facility] Other 11-07-2023 Evaluation note* Encounter Date Diagnosis Assessment Notes Treatment Notes Treatment Clinical Notes Feb, Chronic pain (ICD-10 - G89.29) [facility] Other 11-06-2023 Evaluation note* Encounter Date Diagnosis [...] weeks. She will call with any concerns. [facility] Other 11-02-2023 Evaluation note* Encounter Date Diagnosis Assessment Notes Treatment Notes Treatment Clinical Notes Feb, Chronic pain (ICD-10 - G89.29) [facility] Other 10-27-2023 Evaluation note* Encounter Date Diagnosis [...] flexion. Call with any concerns or change. [facility] Other 10-26-2023 Evaluation note* Encounter Date Diagnosis [...] will decrease with wound healing I believe. [facility] Other 10-24-2023 Evaluation note* Encounter Date Diagnosis Assessment Notes Treatment Notes Treatment Clinical Notes Jan, Pain in left knee (ICD-10 - M25.562) Jan, Effusion, left knee (ICD-10 - M25.462) [facility] Other 10-16-2023 Evaluation note* Encounter Date Diagnosis [...] deep laceration. Jan, Constipation (ICD-10 - K59.00) [facility] Other 10-13-2023 Evaluation note* Encounter Date Diagnosis [...] Will recheck by phone early next week. [facility] Other 10-05-2023 Evaluation note* Encounter Date Diagnosis [...] Percocet 5/325 tabs, zolpidem 10 mg tabs (longterm). Nicole experiences chronic low back pain secondary [...] via tele check in to reassess symptoms [facility] Other 10-02-2023 Evaluation note* Encounter Date Diagnosis Assessment Notes Treatment Notes Treatment Clinical Notes Jan, Insomnia, unspecified (ICD-10 - G47.00) [facility] Other 09-21-2023 Evaluation note* Encounter Date Diagnosis Assessment Notes Treatment Notes Treatment Clinical Notes Dec, COPD without exacerbation (ICD-10 - J44.9) Very lengthy 45+ minute discussion with patient//noemi solis today. I am not convinced that patient [...] utility/protocol for removing patient from hospice care. Patient//noemi ter are rather appreciative of all of our help today and we will follow closely. [facility] Other 09-14-2023 Evaluation note* Encounter Date Diagnosis Assessment Notes Treatment Notes Treatment Clinical Notes Dec, COPD without exacerbation (ICD-10 - J44.9) Certainly this is something that we need to sit down and discuss in person. We will review her history and most recent hospital documentation. Patient and voiced agreement and understanding. [facility] Other 09-12-2023 Evaluation + Plan note Diagnostic Tests Pending * Urine Culture 12/18/22 [facility]08-24-2023 Hospital Discharge instructions Patient Education 11/29/2022 16:47:16 [...] health careprovider. Avoid caffeine, alcohol, and certain tikp-jix-nkldjno cold medicines. These may make you feel worse. Ask your pharmacist which medicines to avoid. General instructions Take iegg-vnp-bxxejtm and prescription medicines only as told by [...] Depression Association of [place] (ADAA): www.adaa.org National [place] on Mental Illness (CLAUDINE): www.claudine.org Contact a [...] department or: Call your local emergency services (453 in the [place] Call a suicide crisis helpline, such as the National Suicide Prevention Lifeline at or 120 in the [place] This is open 24 hours a day in the [place] Text the Crisis Text Line at 362355 (in the [place] Summary Taking steps to [...] provider. Document Revised: 10/18/2021 Document Reviewed: 07/16/2021 [employer] Patient Education 2022 [employer] 11/29/2022 16:47:13 Chronic Obstructive Pulmonary Disease, Oiqs-ir-Ksms Chronic Obstructive Pulmonary Disease Chronic obstructive pulmonary [...] Follow these instructions at home: Medicines Take vkxp-uvq-rrgxtzn and prescription medicines only as told by [...] keep yourself as healthy as possible. Take dfzz-jai-bbecuii and prescription medicines only as told by your doctor. If you smoke, stop. Smoking makes the problem worse. This information is not intended to replace advice given to you by your health care provider. Make sure you discuss any questions you have with your health care provider. Document Revised: 01/31/2021 Document Reviewed: 01/31/2021 [employer] Patient Education 2022 [employer]. Follow Up Care 11/25/2022 14:52:28 With:[facility] Address:Unknown When: Unknown With:PARRIS THOMAS Address: [address] [place], [place] [id number] [facility] (1) When: Unknown [facility]08-24-2023 Evaluation + Plan noteExtracted from: Title:Progress/SOAP [...] Ulcer prophylaxis with PPI 9. Meeting with [facility] this afternoon and daughter flying in Discharge [...] Heparin sq Orders: Incentive Spirometry Extracted from: Title:PCCM progress note Author:Bailey Dill Jr., PA-C Date:11/28/22 [...] status) Heparin sq Addendum by Jimbo MORFIN, [facility] on November 28, 2022 22:23:59 EDT I have seen and evaluated the patient with the physician preschool teacher's assistant. His history, physical exam, assessment and plan were done in collaboration. I performed an independent physical examination. I agree with all the above. Extracted from: Title:Progress/SOAP Note Author:Trish Hong DO Date:11/28/22 72-year-old female admitted for acute on [...] a full code; daughter reached out wanting [facility] hospice consulted Discharge planning in the [...] every 8 hours Ordered: Home Health Orders [facility] [facility] Care/Day Moderate 35 Minutes 18641 2. Acute exacerbation of chronic obstructive pulmonary disease (COPD) (J44.1: Chronic obstructive pulmonary disease with (acute) exacerbation) See above Ordered: Home Health Orders [facility] Care/Day Moderate 35 Minutes 40382 3. Other chest pain (R07.89: Other chest pain) Pain is worse with breathing and coughing so it sounds more pleuritic in nature or costochondritis We will give a one-time dose of Toradol 15 mg IV push Stat troponin Twelve-lead ECG shows sinus rhythm with nonspecific T wave flattening but no acute ST-T wave changes Ordered: [facility] Care/Day Moderate 35 Minutes 97686 4. Hyperlipidemia (E78.5: Hyperlipidemia, unspecified) Maintain simvastatin Ordered: [facility] Care/Day Moderate 35 Minutes 50797 5. History of CVA in adulthood (Z86.73: Personal history of transient ischemic attack (TIA), and cerebral infarction without residual deficits) Continue Plavix as well as her fenofibrate and simvastatin Ordered: [facility] Care/Day Moderate 35 Minutes 02205 6. Depression with anxiety (F41.8: Other specified anxiety disorders) She does have Xanax which I increased the dose to 1 mg twice daily as needed as well as Prozac Ordered: [facility] Care/Day Moderate 35 Minutes 86864 7. Chronic GERD (K21.9: Gastro-esophageal reflux disease without esophagitis) On oral PPI Ordered: [facility] Care/Day Moderate 35 Minutes 47109 8. Obesity due to excess calories (E66.09: Other obesity due to excess calories) Ordered: [facility] Care/Day Moderate 35 Minutes 00818 9. No contraindication to deep vein thrombosis (DVT) prophylaxis (Z78.9: Other specified health status) Ordered: [facility] Care/Day Moderate 35 Minutes 16305 Orders: alprazolam, 1 mg = 1 tab(s), [...] Title:PCCM Consult Note Author:Aniyah Whitt PA-C, Leticia Tracy. Date:11/26/22 1. Acute on chronic respirat ory [...] Panel by PCR Addendum by Jimbo MORFIN, Isamar Mary Ann on November 26, 2022 19:20:56 EDT I have seen and evaluated the patient with the physician preschool teacher's assistant. His history, physical exam, assessment and plan were done in collaboration. I performed an independent physical examination. I agree with all the above. Extracted from: Title:Progress/SOAP Note Author:Trish Hong DO cliff Quiles Date:11/26/22 72-year-old female admitted for acute on [...] 3 mL, Soln-Inh, Inhalation, Once, Stop date 08/20/23 15:31:00 EDT, STAT, Start date 11/25/22 15:31:00 [...] ED Physician consult Hospitalist for continued care [facility]07-31-2023 Evaluation note* Encounter Date Diagnosis Assessment Notes Treatment Notes Treatment Clinical Notes Oct, COPD without exacerbation (ICD-10 - J44.9) Lengthy 30+ minute discussion with patient and today that we certainly could make referral to the ocean clam boat captain. At this point she is really doing quite well/stable, so I feel comfortable simply maintaining her current regimen. I related to them the pathophysiology and potential outcomes of COPD. They are comfortable without making referral at this time. Certainly if her symptoms rapidly progress or change, then certainly we can get a hold of pulmonology. [facility] Other 06-28-2023 Evaluation note* Encounter Date Diagnosis Assessment Notes Treatment Notes Treatment Clinical Notes Sep, Lumbar radiculopathy (ICD-10 - M54.16) [facility] Other 05-30-2023 Evaluation note* Encounter Date Diagnosis [...] [facility] - call if symptoms persist. [facility] Other 05-13-2023 Evaluation + Plan noteExtracted from: [...] 50,000 intl units (1.25 mg) oral capsule, 84537 International_Unit= 1 cap(s), Oral, qWeek Xanax 0.25 mg Tab, 0.25 mg= 1 tab(s), Oral, BID, PRN Zanaflex, Not taking With When Contact Information Yung Hough Within [address] [place] [phone] Business (1) Additional Instructions: PARRISDaisy DIAZTHOMAS Within 3 to 5 days [address], [facility] [address] [place] [address]- Business (1) Additional Instructions: PCP is closed today. Please contact the office for an appointment. Thank you! Extracted from: Title:APSO Note Author:Aniyah Whitt PA-C, Francisco RossanaMichael Date:08/17/22 1. Acute respiratory failure with hypoxia [...] to Resource Center Extracted from: Title:Consult Note Author:Maria SAHNI, Rueda. Date:08/16/22 1. Acute respiratory failure with hypoxia [...] specified health status) Extracted from: Title:APSO Note Author:FREDRICK MORFIN, Hasynes Date: 1. Acute respiratory failure with hypoxia [...] CBC w/ Auto Diff Consult to Clinical Healthcare Business Analyst Consult to Pulmonology Continuous Pulse Oximetry Education [...] on Test Cardiac Monitoring Consult to Clinical Healthcare Business Analyst Consult to Pulmonology Evaluate For Pulmonary Rehabilitation [...] Procalcitonin PT & PTT Rapid COVID Antigen ([facility]) Saline Lock Insert Troponin 0 Hr. Troponin 3 Hr. Troponin 6 Hr. Troponin 9 Hr. UA With Cult Reflex Future Appointments Appointment Date:08/28/2022 08:30:00 AM Scheduled Provider: Location:.CARDIO Appointment Type:PUL Six Minute Walk Test (FT) [facility]05-13-2023 Hospital Discharge instructions Patient Education 08/18/2022 11:27:10 Influenza, Adult, Xnct-vt-Gkyl Influenza, Adult Influenza is also called the [...] Your doctor may want you to: Take lcfu-anf-nkmueoc medicines. Drink plenty of fluids. The flu [...] foods include: ?Bananas. ?Applesauce. ?Rice. ?Lean meats. ?[place]. ?Crackers. Do not eat or drink: ?Fluids that have a lot of sugar or caffeine. ?Alcohol. ?Spicy or fatty foods. General instructions Take rdkw-ndl-xhmohgv and prescription medicines only as told by [...] use soap and water, use alcohol-based hand road machine runner. Keep all follow-up visits. How is this [...] spreads easily from person to person. Take rwzr-fsq-bpoqxtm and prescription medicines only as told by your doctor. Getting a flu shot every year is the best way to not get the flu. This information is not intended to replace advice given to you by your health care provider. Make sure you discuss any questions you have with your health care provider. Document Revised: 11/11/2020 Document Reviewed: 11/11/2020 [employer] Patient Education 2022 [employer]. 08/18/2022 11:26:39 Chronic Obstructive Pulmonary Disease, Wipn-gw-Uxfc Chronic Obstructive Pulmonary Disease Chronic obstructive pulmonary [...] Follow these instructions at home: Medicines Take hvwh-lez-mzwhzdc and prescription medicines only as told by [...] keep yourself as healthy as possible. Take ztgv-pkb-mdhyimy and prescription medicines only as told by your doctor. If you smoke, stop. Smoking makes the problem worse. This information is not intended to replace advice given to you by your health care provider. Make sure you discuss any questions you have with your health care provider. Document Revised: 01/31/2021 Document Reviewed: 01/31/2021 [employer] Patient Education 2022 [employer]. Follow Up Care 08/15/2022 11:37:35 With:Yung Hough Address: [address] [place] [phone] Business (1) When:2 weeks With:PARRIS GUZMAN Address: [address] [place], [place] [phone]- Business (1) When:3 to 5 days Comments:PCP is closed today. Please contact the office for an appointment. Thank you! [facility]04-12-2023 Evaluation note* Encounter Date Diagnosis Assessment Notes Treatment Notes Treatment Clinical Notes Jul, Pure hypercholestero lemia (ICD-10 - E78.0) [facility] Other 04-04-2023 Evaluation note* Encounter Date Diagnosis [...] malignant neoplasm of breast (ICD-10 - Z12.31) [facility] Other 01-25-2023 Evaluation note* Encounter Date Diagnosis Assessment Notes Treatment Notes Treatment Clinical Notes Apr, Anxiety (ICD-10 - F41.9) [facility] Other 01-13-2023 Evaluation note* Encounter Date Diagnosis [...] as they would like to leave for [place] tomorrow. I think that they can certainly travel without concern. It is related that there are medical facilities between here in [place] and numerous medical facilities in [place] should she develop some concern. Apr, Depression with anxiety (ICD-10 - F41.8) Patient also admits today that she feels that some of her symptoms may be anxiety related. I certainly think this is not unlikely, but she definitely does have known COPD concerns. [facility] Other 12-21-2022 Evaluation note* Encounter Date Diagnosis Assessment Notes Treatment Notes Treatment Clinical Notes Mar, Dyspnea on exertion (ICD-10 - R06.09) Mar, Exercise-induced tachycardia (ICD-10 - R00.0) [facility] Other 12-21-2022 Evaluation note* Encounter Date Diagnosis [...] Lumbar radiculopathy (ICD-10 - M54.16) Bill Bojorquez [facility] Other 11-30-2022 Evaluation note* Encounter Date Diagnosis Assessment Notes Treatment Notes Treatment Clinical Notes Feb, Lumbar radiculopathy (ICD-10 - M54.16) [facility] Other 11-21-2022 Evaluation note* Encounter Date Diagnosis Assessment Notes Treatment Notes Treatment Clinical Notes Feb, Depression with anxiety (ICD-10 - F41.8) [facility] Other 11-09-2022 Evaluation note* Encounter Date Diagnosis Assessment Notes Treatment Notes Treatment Clinical Notes Feb, Lumbar radiculopathy (ICD-10 - M54.16) [facility] Other 10-31-2022 Evaluation note* Encounter Date Diagnosis Assessment Notes Treatment Notes Treatment Clinical Notes Jan, COPD without exacerbation (ICD-10 - J44.9) RX printed, as Pt is traveling to [place] for the winter. Call with any change. Jan, Lumbar radiculopathy (ICD-10 - M54.16) Unfortunate level of concern but nothing further to suggest. Continue the Percocet, and patient does use this judiciously. [facility] Other 10-21-2022 Evaluation note* Encounter Date Diagnosis Assessment Notes Treatment Notes Treatment Clinical Notes Jan, Insomnia, unspecified (ICD-10 - G47.00) [facility] Other 10-11-2022 Evaluation note* Encounter Date Diagnosis Assessment Notes Treatment Notes Treatment Clinical Notes Jan, Lumbar radiculopathy (ICD-10 - M54.16) [facility] Other 09-28-2022 Evaluation note* Encounter Date Diagnosis Assessment Notes Treatment Notes Treatment Clinical Notes Dec, COPD (chronic obstructive pulmonary disease) (ICD-10 - J44.9) [facility] Other 09-28-2022 Evaluation note* Encounter Date Diagnosis [...] desires RX...Continue with home overnight O2 use. [facility] Other 09-19-2022 Evaluation note* Encounter Date Diagnosis Assessment Notes Treatment Notes Treatment Clinical Notes Dec, Lumbar radiculopathy (ICD-10 - M54.16) [facility] Other 08-26-2022 Evaluation note* Encounter Date Diagnosis Assessment Notes Treatment Notes Treatment Clinical Notes Nov, Acute cough (ICD-10 - R05.1) Nov, Lumbar radiculopathy (ICD-10 - M54.16) [facility] Other 08-08-2022 Evaluation note* Encounter Date Diagnosis Assessment Notes Treatment Notes Treatment Clinical Notes Nov, Acute cough (ICD-10 - R05.1) [facility] Other 07-25-2022 Evaluation note* Encounter Date Diagnosis Assessment Notes Treatment Notes Treatment Clinical Notes Oct, Lumbar radiculopathy (ICD-10 - M54.16) [facility] Other 07-01-2022 Evaluation note* Encounter Date Diagnosis [...] Certainly patient to continue to follow-up with [facility] for [facility]. She may need surgical clearance moving forward. [facility] Other 06-15-2022 Evaluation note* Encounter Date Diagnosis Assessment Notes Treatment Notes Treatment Clinical Notes Sep, Lumbar radiculopathy (ICD-10 - M54.16) Sep, COPD (chronic obstructive pulmonary disease) (ICD-10 - J44.9) [facility] Other 06-08-2022 Evaluation note* Encounter Date Diagnosis Assessment Notes Treatment Notes Treatment Clinical Notes Sep, Lumbar radiculopathy (ICD-10 - M54.16) [facility] Other 05-24-2022 Evaluation note* Encounter Date Diagnosis Assessment Notes Treatment Notes Treatment Clinical Notes August, Lumbar radiculopathy (ICD-10 - M54.16) [facility] Other 05-02-2022 Evaluation note* Encounter Date Diagnosis Assessment Notes Treatment Notes Treatment Clinical Notes August, Lumbar radiculopathy (ICD-10 - M54.16) [facility] Other 04-22-2022 Evaluation note* Encounter Date Diagnosis Assessment Notes Treatment Notes Treatment Clinical Notes Jul, Depression with anxiety (ICD-10 - F41.8) Jul, Insomnia, unspecified (ICD-10 - G47.00) [facility] Other 04-04-2022 Evaluation note* Encounter Date Diagnosis Assessment Notes Treatment Notes Treatment Clinical Notes Jul, Pure hypercholestero lemia (ICD-10 - E78.0) Jul, Lumbar radiculopathy (ICD-10 - M54.16) [facility] Other 02-16-2022 Evaluation note* Encounter Date Diagnosis Assessment Notes Treatment Notes Treatment Clinical Notes May, Depression with anxiety (ICD-10 - F41.8) [facility] Other 01-17-2022 Evaluation note* Encounter Date Diagnosis Assessment Notes Treatment Notes Treatment Clinical Notes Apr, Wheeze (ICD-10 - R06.2) [facility] Other 12-17-2021 Evaluation note* Encounter Date Diagnosis Assessment Notes Treatment Notes Treatment Clinical Notes Mar, Pure hypercholestero lemia (ICD-10 - E78.0) Mar, Insomnia, unspecifie d (ICD-10 - G47.00) Mar, Lumbar radiculopathy (ICD-10 - M54.16) [facility] Other 12-01-2021 Evaluation note* Encounter Date Diagnosis Assessment Notes Treatment Notes Treatment Clinical Notes Mar, Depression with anxiety (ICD-10 - F41.8) [facility] Other 11-29-2021 Evaluation note* Encounter Date Diagnosis Assessment Notes Treatment Notes Treatment Clinical Notes Feb, Lumbar radiculopathy (ICD-10 - M54.16) [facility] Other 10-19-2021 Evaluation note* Encounter Date Diagnosis Assessment Notes Treatment Notes Treatment Clinical Notes Jan, Onychomycosis (ICD-1 0 - B35.1) [facility] Other 10-19-2021 Evaluation note* Encounter Date Diagnosis [...] sent. OARRs completed. No other change today. [facility] Other 03-01-2012 History general Narrative - Reported* [...] Hospitalization History childbirth Hospitalization History with surgeries [facility] Other 03-01-2012 History general Narrative - Reported* [...] Surgical History oophorectomy 1984 Surgical History Procedure:hysterectomy;Disease: 1971 Surgical History neck fusion 2002 Surgical History [...] Hospitalization History childbirth Hospitalization History with surgeries [facility] Other 03-01-2012 History general Narrative - Reported* Type Description Date Medical History osteoporosis Medical History Esophageal reflux Medical History hypercholesterolemia Medical History hypertriglyceridemia Medical History insomnia Medical History CVA 06/2011 Medical History COPD Surgical History gall bladder 1968 Surgical History Procedure:cardiac catheterizati on;Disease: 2003 Surgical History Procedure:cardiac catheterizati on;Disease: 2011 Surgical History tubal ligation 1971 Surgical History hysterectomy 1971 Surgical History Procedure:cholecystectomy;Disea se: 1969 Surgical History oophorectomy 1984 Surgical History Procedure:hysterectomy;Disease: 1971 Surgical History neck fusion 2002 Surgical History [...] surgeries Hospitalization History COPD Acute Exacerbation 08/15/2022 [facility] Other 03-01-2012 History general Narrative - Reported* Type Description Date Medical History osteoporosis Medical History Esophageal reflux Medical History hypercholesterolemia Medical History hypertriglyceridemia Medical History insomnia Medical History CVA 06/2011 Medical History COPD Surgical History gall [...] Acute Exacerbation 08/15/2022 Hospitalization History COPD 11/2022 [facility] Other Evaluation + Plan note Future Appointments Appointment Date:10/24/2022 09:30:00 AM Scheduled Provider:Yung Hough MD Location:FT.Pulmonary Clinic Appointment Type:Pulmonary Follow [facility] (FT) [facility] noteNo InformationNortWell[facility] Other Evaluation [facility]NoP[facility] Other Evaluation noteNo assessment information available [facility] Work Phone: Evaluation note* Diagnosis Onset Date Resolution Status COPD (chronic obstructive pulmonary disease) acute Open wound of left knee acut e Oral thrush noneactive [facility] Work Phone: Evaluation note* Diagnosis Onset Date Resolution Status COPD (chronic obstructive pulmonary disease) acute Open wound of left knee reso lved Oral thrush noneactive Chronic pain syndrome acute [facility] Work Phone: Evaluation note* Diagnosis Onset Date Resolution Status COPD (chronic obstructive pulmonary disease) acute Open wound of left knee reso lved Oral thrush noneactive Chronic pain syndrome acute COPD without exacerbation ac [place] Lumbar degenerative disc disease acute Supplemental oxygen dependent acute [facility] Work Phone: Evaluation note* Diagnosis Onset Date Resolution Status Oral thrush noneactive Chronic pain syndrome acute COPD without exacerbation ac [place] Lumbar degenerative disc disease acute Supplemental oxygen dependent acute COPD without exacerbation ac [place] UTI (urinary tract infection) noneactive Chest pain noneactive [facility] Work Phone: Evaluation note* Diagnosis Urge urinary incontinence- Primary Urge incontinence Pelvic pain in female Unspecified symptom associated with female genital organs Nocturia documented in this encounter [facility] Diagnosis Onset Date Resolution Status Chronic pain syndrome acute COPD without exacerbation ac [place] Lumbar degenerative disc disease acute Supplemental oxygen dependent acute COPD without exacerbation ac [place] UTI (urinary tract infection) noneactive Chest pain noneactive Dyspnea noneactive [facility] Work Phone: History general Narrative - Rep[facility]No[facility] Other History general Narrative - ReportedNoP[facility] Other Hospital course Narrative No data available for this section [facility] No data available for this section [facility] Discharge instructions Additional Instructions As we discussed [...] be sent to help you with bandage changes.[facility] Work Phone: Hospital Discharge instructions Additional Instructions Keep your wound clean and apply Neosporin daily Your Percocet at home for severe pain Elevate Take your antibiotic as instructed until gone Please return here if you have any increased redness, swelling, purulent drainage or any other concerns Continue use of your knee immobilizer Have your knee reevaluated with your doctor in [facility] Work Phone: Progress note No data available for this section [facility] for referral (narrative)* Outpatient Procedure (Routine) - Pending Review Specialty Diagnoses / Procedures Referred By Briseyda t Referred To Contact [facility] Diagnoses Urge urinary incontinence Procedures BOTOX/CYSTO CYSTOURETHROSCOPY INJ CHEMODENERVATION BLADDER Mara Monroy MD [address] [place] [address] [address] Referral ID Status Reason Start Date Expiration Date Visits Requested Visits Authorized [id number] Pending Review Auto-Generat ed Referral 09/12/2023 09/11/2024 1 1 [facility] for visit Narrativediscuss COPD and get a new referral to Dr. Miller [facility] Other Summary Purpose Family History No Family History Records Found Relationship Condition Age at Onset Recorded Date/T [...] Unknown sister Diabetes mellitus Unknown Advance Directives No Advanced Directives Records Found Advance Directive Response Recorded Date/ Time Advance Directives No January 18, 2017 9:04am Advance Directive Response Recorded Date/ Time Advance Directives No January 18, 2017 8:04am Advance Directive Response Recorded Date/ Time Advance Directives No August 09, 2023 10:35am Hospital Course Note [facility] Patient: NICOLE LOMELI [address] [place] [address] MR#: [id number] DISCHARGE SUMMARY : 48 Service Date: 12/13/19 [...] 30 DAYS - SIG Obtained From Cate (more content not included)... Chief Complaint and [...] COPD with exacerbation Chief Complaint f/u from [facility] n30.1 *LAB* SMR pt, bronchitis Patient here for a 2 month f/u in office Amb Documentation Patient here for a f/u in office Reason for Visit COPD without exacerb ation UTI (urinary tract infection) Chest pain COPD with exacerbation Chronic pain syndrome Chief Complaint *LAB* SMR pt, bronch itis Patient here for a 2 month f/u in office Amb Documentation Patient here for a f/u in office Amb Documentation Amb Documentation Amb Documentation voice goes in and out Reason for Visit COPD with exacerbati on Chronic pain syndrome COPD without exacerbation Lumbar degenerative disc disease STACEY (stress urinary incontinence, female) Supplemental oxygen dependent Chief Complaint *LAB* SMR pt, bronch itis Patient here for a 2 month f/u in office Amb Documentation Patient here for a f/u in office Amb Documentation Amb Documentation Amb Documentation voice goes in and out Patient here for a 1 month f/u in office Reason for Visit COPD with exacerbati on Chronic pain syndrome Anxiety COPD without exacerbation Lumbar degenerative disc disease STACEY (stress urinary incontinence, female) Supplemental oxygen dependent Change in voice Chronic pain syndrome Additional Source Comments INFORMATION SOURCE (unrecogn ized section and content) DATE CREATED AUTHOR 01/02/2020 [facility] DATE CREATED AUTHOR AUTHOR'S ORGANIZ ATION 05/24/2020 [facility] DATE CREATED AUTHOR AUTHOR'S ORGANIZ ATION 02/01/2023 [facility] DATE CREATED AUTHOR AUTHOR'S ORGANIZ ATION 08/27/2023 [place] U[place] [facility] Center DATE CREATED AUTHOR AUTHOR'S ORGANIZ ATION 08/28/2023 Contreras Uintah [facility] DATE CREATED AUTHOR AUTHOR'S ORGANIZ ATION 08/29/2023 Contreras Jonathan [facility] Center DATE CREATED AUTHOR AUTHOR'S ORGANIZ ATION 09/10/2023 [facility] DATE CREATED AUTHOR AUTHOR'S ORGANIZ ATION 09/13/2023 [facility] DATE CREATED AUTHOR AUTHOR'S ORGANIZ ATION 10/02/2023 [place] Jonathan [facility] DATE CREATED AUTHOR AUTHOR'S ORGANIZ ATION 12/19/2023 [facility] DATE CREATED AUTHOR AUTHOR'S ORGANIZ ATION 12/29/2023 [facility] DATE CREATED AUTHOR AUTHOR'S ORGANIZ ATION 01/11/2024 [facility] REASON FOR VISIT (unrecogniz ed section and [...] November 15, 2023 End: November 15, 2023 Team Status: Active Member Role Status Dates Parris Guzman DO Primary Care Provider Active Start: November 25, 2023 Denis Lundy LPN Attending Provider Active St art: November 25, 2023 Team Status: Active Member Role Status Dates Parris Guzman DO Primary Care Provider Active Start: November 29, 2023 Shannon Stern LPN Attending Provider Active S tart: November 29, 2023 Team Status: Active Member Role Status Dates Parris Guzman DO Primary Care Provider Active Start: December 02, 2023 Denis Lundy LPN Attending Provider Active St art: December 02, 2023 Team Status: Inactive Member Role Status Dates Parris Guzman DO Primary Care Provid er, Attending Provider Active Start: December 05, 2023 End: December 05, 2023 Team Status: Inactive Member Role Status Dates Parris Guzman DO Primary Care Provider Active Start: December 12, 2023 End: December 12, 2023 Zuleyka Ross APRN Attending Provider Active Start: December 12, 2023 End: December 12, 2023 Team Status: Active Member Role [...] Active Member Role Status Dates Parris Guzman , Primary Care Provider Active Start: July 16, 2023 Denis Lundy LPN Attending Provider Active St art: July 16, 2023 Team Status: Active Member Role Status Dates Parris Guzman , DO Primary Care Provider Active Start: May 22, 2023 Michaela Fernandez APRN Attending Provider Active St art: May 22, 2023 Team Status: Inactive Member Role Status Dates Parris Guzman , DO Primary Care Provider Active Sangeetha Mares , DO Attending Provider Active Team Status: Inactive Member Role Status Dates Parris Guzman , DO Primary Care Provider, Attending Provider Active Team Status: Inactive Member Role Status Dates Cheko Rolon Jr, MD Emergency Provider Active Parris Guzman , DO Primary Care Provider Active Team Status: Inactive Member Role Status Dates Parris Guzman DO Primary Care Provider Active Jennyfer Juarez APRN Emergency Provider Active Team Status: Inactive Member Role Status Dates Parris Guzman , Primary Care Provider Active Start: July 17, 2023 End: July 17, 2023 Zuleyka Ross APRN Attending Provider Active Start: July 17, 2023 [...] Active Member Role Status Dates Parris Guzman , Primary Care Provider Active Start: August 16, 2023 Denis Lundy LPN Attending Provider Active St art: August 16, 2023 Team Status: Inactive Member Role Status Dates Parris Guzman DO Primary Care Provid er, Attending Provider Active Start: September 04, 2023 End: September 04, 2023 [employer] Supervisor Relationship Specialty Start Date End Date Parris Guzman DO [address] [address] PCP - General Family Medicine 09/11/23 Parris Guzman DO [address] [address] Referring Family Medicine 09/11/23 [employer] Supervisor Relationship Specialty Start Date End Date Parris Guzman DO [address] [address] PCP - General Family Medicine 09/11/23 Parris Guzman DO [address] [address] Referring Family Medicine 09/11/23 Goals (unrecognized section and content) Goals may be documented in a n alternate section Source Comments (unrecognize d section and content) In the event this informatio n is protected by the Federal Confidentiality of Alcohol and Drug Abuse Patient Records regulations: The Federal rules restrict any use of the information to criminally investigate or prosecute any alcohol or drug abuse patient.[facility] the event this information is protected by the Federal Confidentiality of Alcohol and Drug Abuse Patient Records regulations: The Federal rules restrict any use of the information to criminally investigate or prosecute any alcohol or drug abuse patient.[facility] FOR RECORDS PERTAINING TO PATIENTS WHO ARE [...] BE BASED ON THE PRIMARY CLINICAL RECORDS. [employer] [facility]. provides no warranty or guarantee of the accuracy or completeness of information in this document.
[2024-01-13 09:12] VITALS: BP 136/75; PULSE 86; TEMP 36.3; O2SAT 98
[2024-01-13 09:50] VITALS: BP 154/75; PULSE 88; O2SAT 99
[2024-01-13 09:52] VITALS: BP 171/76; PULSE 84; O2SAT 98
[2024-01-13] MEDS: LIDOCAINE HCL 2% 400 MG/20 ML MDV INJ (09:54)
[2024-01-13] MEDS: BUPIVACAINE HCL 0.25% PF 25 MG/10 ML VIAL 8 ML INJ (09:54)
--- NOTE | 2024-01-13 09:54 | W.PM.PROCNOT ---
Date of procedure: 01/13/24 Pre-op diagnosis: Pain due to lumbar spondylosis without myelopathy Post-op diagnosis: same as pre-op Procedure: Procedure: Bilateral L4-5, L5-S1 medial branch block Medications: Bupivacaine 0.25% 6cc The patient was seen and examined in the preoperative holding area.? An informed consent was obtained and placed on the chart.? The patient was brought to the medical procedure unit and placed in the prone position.? A timeout was completed verifying correct patient, procedure site, positioning, plan, and special equipment.? Using aseptic technique, the needle was placed at left L4. Under direct fluoroscopic visualization a Quincke-tipped spinal needle was advanced to the junction of the superior articulating process with the transverse process at the designated medial branch segment.? Preceded by negative aspiration, the above-mentioned injectate was placed in 1 mL aliquots.? The procedure was repeated at left L5, S1.? The needle was removed and insertion site was covered. The same procedure, at the same levels, was completed on the right side. The patient was taken to the postprocedural recovery area and monitored for an appropriate length of time before found suitable for discharge in the company of a responsible adult. Anesthesia: Local Surgeon: Ru Ferrera Pathology: none sent Condition: stable Disposition: no change
== END 2024-01-13 10:00 | disposition home or self-care (01) ==
LOC: SURGOUT 08:21
PROVIDERS: PCP Family Medicine; Visit Provider Anesthesiology
DX: M47.816 Spondylosis without myelopathy or radiculopathy, lumbar region (principal)
CPT/HCPCS: 64493; 64494; J0665

== ENCOUNTER 2024-01-16 10:20 | Outpatient (OUT) | payer MEDICARE, OTHER, SELFPAY ==
--- NOTE | 2024-01-16 10:56 | P.CN_ITS ---
Consult Note: HPI Data of Consult Patient: known to practice within the last 3 years Consult date: 11/04/23 Requesting Physician: Rosa Maria Rico NP Primary Care Provider: PARRIS ROMAN Consult Narrative Reason for consult: low back pain Narrative: 73yof who presents for assessment. persistent low back pain. imaging reviewed. lumbar mri with more moderate degenerative changes, from l2 to l5. multiple levels of stenosis seen throughout lumbar spine. has continued in a provider directed home exercise program >6 weeks, without benefit. continues with percocet, morphine, butrans, tizanidine, abilify, xanax through palliative care. recently underwent bilateral L3-4 L4-5 MBB #1 and #2 with >80% improvement in pain and functional ability immediately following and 6 hours following the procedure. Preop pain 4/10 post op pain 0/10 for 4 hours with significant improvement in ability to bend over and walk while anesthetized. cc:: CC: Rosa Maria Rico NP Review of Systems ROS Status of ROS 10 or more systems reviewed and unremark able except as noted in history and below Musculoskeletal Reports: back pain PFSH PFSH Medical History (Updated 12/11/23 @ 09:14 by Rosa Maria Rico NP) Acid reflux ?K21.9 - Gastro-esophageal reflux disease without esophagitis (ICD-10) Cervical vertebral fusion ?M43.22 - Fusion of spine, cervical region (ICD-10) COPD (chronic obstructive pulmonary disease) ?J44.9 - Chronic obstructive pulmonary disease, unspecified (ICD-10) Stroke ?I63.9 - Cerebral infarction, unspecified (ICD-10) Vertigo ?R42 - Dizziness and giddiness (ICD-10) Surgical History History of lumbar surgery ?Z98.890 - Other specified postprocedural states (ICD-10) History of bladder suspension procedure ?Z98.890 - Other specified postprocedural states (ICD-10) ?Z87.448 - Personal history of other diseases of urinary system (ICD-10) H/O dilation of urethra ?Z98.890 - Other specified postprocedural states (ICD-10) History of colonoscopy ?Z98.890 - Other specified postprocedural states (ICD-10) History of laparoscopy ?Z98.890 - Other specified postprocedural states (ICD-10) History of cardiac cath ?Z98.890 - Other specified postprocedural states (ICD-10) History of hand surgery ?Z98.890 - Other specified postprocedural states (ICD-10) H/O oophorectomy History of hysterectomy ?Z90.710 - Acquired absence of both cervix and uterus (ICD-10) Hx of cholecystectomy ?Z90.49 - Acquired absence of other specified parts of digestive tract (ICD- 10) Meds Home Medications and Allergies Home Medications ?Medication ?Instructions ?Recorded ?Confirmed ?Type albuterol sulfate 90 mcg/actuation 2 inh inhalation Q8H PRN shortness 10/28/23 01/13/24 History aerosol inhaler of breath or wheezing aripiprazole 5 mg tablet (Abilify) 5 mg PO DAILY 10/28/23 01/13/24 History cholecalciferol (vitamin D3) 50 10,000 unit PO DAILY 10/28/23 01/13/24 History mcg (2,000 unit) tablet (Vitamin D3) clopidogrel 75 mg tablet (Plavix) 75 mg PO DAILY 10/28/23 01/13/24 History fenofibrate micronized 134 mg 134 mg PO DAILY 10/28/23 01/13/24 History capsule fluoxetine 40 mg capsule (Prozac) 40 mg PO DAILY 10/28/23 01/13/24 History fluticasone furoate 100 1 inh inhalation DAILY 10/28/23 01/13/24 History mcg-vilanterol 25 mcg/dose inhalation powder (Breo Ellipta) ipratropium 18 mcg-albuterol 103 1 spray inhalation PRN shortness 10/28/23 History mcg/actuation aerosol inhaler of breath morphine 15 mg tablet,extended 15 mg PO Q12H 10/28/23 12/23/23 History release (MS Contin) multivitamin-ferrous 1 tab PO DAILY 10/28/23 01/13/24 History fumarate-folic acid 18 mg-400 mcg tablet (Centrum Women) omeprazole 20 mg capsule,delayed 20 mg PO DAILY 10/28/23 01/13/24 History release oxycodone-acetaminophen 10 mg-325 1 tab PO Q4H 10/28/23 01/13/24 History mg tablet (Percocet) raloxifene 60 mg tablet (Evista) 60 mg PO DAILY 10/28/23 01/13/24 History sennosides 8.6 mg tablet (Senokot) 8.6 mg PO DAILY 10/28/23 01/13/24 History simvastatin 40 mg tablet 40 mg PO DAILY 10/28/23 01/13/24 History tizanidine 2 mg capsule 2 mg PO BID PRN muscle spasticity 10/28/23 01/13/24 History morphine 15 mg tablet,extended 15 mg PO Q12H #60 tabs 11/04/23 01/13/24 Rx release naloxone 4 mg/actuation nasal 4 mg intranasal Q3M PRN opioid 11/04/23 01/13/24 Rx spray (Narcan) overdose #2 ea Allergies Allergy/AdvReac Type Severity Reaction Status Date / Time No Known Drug Allergies Allergy Verified 01/13/24 09:18 Exam Constitutional Documenting provider has reviewed patient's vital signs: yes Common normals: no apparent distress, oriented x3, healthy appearing, alert and well nourished General appearance: cooperative HENMT Common normals: normocephalic, hearing grossly normal bilaterally and moist oral mucous membranes Head and scalp: normocephalic Eye Common normals: PERRL Pupil: PERRL Neck & C-Spine Common normals: full ROM General: normal visual inspection Cervical spine: cervical ROM abnormal, pain with cervical ROM and cervical spine tenderness Other: negative spurlings sensation intact BUE strength 5/5 in BUE Chest Common normals: inspection of chest normal Respiratory Common normals: normal respiratory effort, no retractions and no use of accessory muscles Back & Pelvis Lumbar spine/lower back: ROM limited, pain with ROM and straight leg raise negative bilaterally Other: positive facet loading L3-S1 sensation intact BLE strength 5/5 in BLE Extremity Common normals: normal to inspection and full ROM Neuro Common normals: oriented x3, CN's II-XII intact bilaterally, moves all extremities, no focal motor deficits, no sensory deficits noted and deep tendon reflexes 2+ bilaterally Sensorium/orientation: alert Gait (neuro): assistive device used Motor exam: strength 5/5 throughout and no movement abnormalities noted Psych Common normals: mental status grossly normal, thought process normal, cooperative, affect normal, speech normal and activity/motor behavior normal Speech: normal speech Thought process: normal thought process Assessment and Plan Assessment and Plan (1) Lumbar spondylosis: Assessment and Plan: The patient has had over 3 months of moderate to severe low back pain with functional impairment and inadequate response to conservative care including NSAIDS (unless there are contraindication such as concurrent blood thinners), multiple oral or topical pain medications, and home exercise program/physical therapy.? Patient has completed >6 weeks of guided home exercise program and/or formal physical therapy program without relief of their symptoms.? We discussed the risks and benefits of the procedure with the patient, and we are NOT planning on using sedation as outlined in the guidelines from Medicare unless there is a documented reason that sedation would be strongly recommended.?? ?The procedure will be completed with fluoroscopic guidance.? (2) Cervical postlaminectomy syndrome: (3) Cervical stenosis of spinal canal: Assessment and Plan: bilateral C4-5 TFESI >70% improvement in pain and functional ability ongoing (4) Lumbar postlaminectomy syndrome: (5) Lumbar stenosis with neurogenic claudication: Plan bilateral L3-4 L4-5 facet medial branch RFA for lumbar spondylosis and axial low back pain, risks vs benefits reviewed continue HEP as tolerated continue care with palliative f/u 1 month after RFA complete
== END 2024-01-16 10:21 | disposition home or self-care (01) ==
LOC: PM 10:21
PROVIDERS: PCP Family Medicine; Visit Provider Nurse Practitioner
DX: M47.816 Spondylosis without myelopathy or radiculopathy, lumbar region (principal); M96.1 Postlaminectomy syndrome, not elsewhere classified; M48.02 Spinal stenosis, cervical region; M48.062 Spinal stenosis, lumbar region with neurogenic claudication
CPT/HCPCS: G0463

== ENCOUNTER 2024-02-17 09:12 | Day surgery (SDC) | payer MEDICARE, OTHER, SELFPAY ==
[2024-02-17 09:35] VITALS: BP 133/76; PULSE 78; TEMP 36.3; O2SAT 98
[2024-02-17 10:27] VITALS: BP 149/87; BP 152/83; PULSE 84; O2SAT 99
[2024-02-17] MEDS: TRIAMCINOLONE ACETONIDE 40 MG/ML VIAL 80 MG INJ (10:40)
[2024-02-17] MEDS: BUPIVACAINE HCL 0.25% PF 25 MG/10 ML VIAL 4 ML INJ (10:40)
[2024-02-17] MEDS: LIDOCAINE HCL 2% 400 MG/20 ML MDV 16 ML INJ (10:40)
--- NOTE | 2024-02-17 10:40 | P.ON_ITS ---
Date of procedure: 02/17/24 Pre-op diagnosis: Pain due to lumbar spondylosis without myelopathy Post-op diagnosis: same as pre-op Procedure: Procedure: Bilateral L3-4, 4-5 radiofrequency ablation Medications: Bupivacaine 0.25% 6cc, lidocaine 2% 6cc, kenalog 80mg The patient was seen and examined in the preoperative holding area.? The site was marked.? Written informed consent was obtained and placed on the chart.? The patient was brought to the medical procedure unit and placed in the prone position.? A timeout was completed verifying correct patient, procedure, positioning, and special requirements.? The skin overlying the target points, the designated medial branch, were prepped and draped in the usual sterile fashion.? The target point was achieved with a 20-gauge 15 cm with a 10 mm curved active tip radiofrequency cannula under direct fluoroscopic visualization.? The needle was inserted at level L3 on the right side. Needle tip position was confirmed with lateral fluoroscopic position.? Motor stimulation was carried out at 2 Hz up to 5 volts with the absence of extremity activity.? This was repeated at level L4, 5 on right side.?? Sensory stimulation was carried out.? Concordant pain was realized at the above- mentioned sites.? Then radiofrequency lesioning was carried out times 90 seconds at 80 degrees times 2 lesions at each level.? The radiofrequency probe was removed prior to cannula removal.? The above-mentioned injectate was placed in 1 mL increments.? The needle was removed. The same procedure, with the same steps, was then completed on the left side at the same levels. Insertion sites were covered.? The patient was taken to the postoperative recovery area and monitored for an appropriate length of time before being found suitable for discharge in the company of a responsible adult. Anesthesia: Local Surgeon: Ru Ferrera Pathology: none sent Condition: stable Disposition: no change
== END 2024-02-17 10:45 | disposition home or self-care (01) ==
LOC: SURGOUT 09:13
PROVIDERS: PCP Family Medicine; Visit Provider Anesthesiology
DX: M47.816 Spondylosis without myelopathy or radiculopathy, lumbar region (principal)
CPT/HCPCS: 64635; 64636; J0665; J3301

== ENCOUNTER 2024-02-24 12:41 | Outpatient (OUT) | payer MEDICARE, OTHER, SELFPAY ==
--- NOTE | 2024-02-24 13:48 | P.CN_ITS ---
Consult Note: HPI Data of Consult Patient: known to practice within the last 3 years Consult date: 02/24/24 Requesting Physician: Ru Ferrera MD Primary Care Provider: PARRIS ROMAN Consult Narrative Reason for consult: low back, bilateral lower extremity pain Narrative: 73yof who presents for assessment. underwent lumbar rfa last week, but has had increasing low back and bilateral lower extremity pain. denies trauma. states difficult to walk. imaging significant for multilevel stenosis, as well as spo ndylosis. pain medication managed by palliative care. cc:: CC: Ru Ferrera MD Review of Systems ROS Status of ROS 10 or more systems reviewed and unremark able except as noted in history and below [facility] Medical History (Updated 12/11/23 @ 09:14 by Rosa Maria Rico NP) Acid reflux ?K21.9 - Gastro-esophageal reflux disease without esophagitis (ICD-10) Cervical vertebral fusion ?M43.22 - Fusion of spine, cervical region (ICD-10) COPD (chronic obstructive pulmonary disease) ?J44.9 - Chronic obstructive pulmonary disease, unspecified (ICD-10) Stroke ?I63.9 - Cerebral infarction, unspecified (ICD-10) Vertigo ?R42 - Dizziness and giddiness (ICD-10) Surgical History History of lumbar surgery ?Z98.890 - Other specified postprocedural states (ICD-10) History of bladder suspension procedure ?Z98.890 - Other specified postprocedural states (ICD-10) ?Z87.448 - Personal history of other diseases of urinary system (ICD-10) H/O dilation of urethra ?Z98.890 - Other specified postprocedural states (ICD-10) History of colonoscopy ?Z98.890 - Other specified postprocedural states (ICD-10) History of laparoscopy ?Z98.890 - Other specified postprocedural states (ICD-10) History of cardiac cath ?Z98.890 - Other specified postprocedural states (ICD-10) History of hand surgery ?Z98.890 - Other specified postprocedural states (ICD-10) H/O oophorectomy History of hysterectomy ?Z90.710 - Acquired absence of both cervix and uterus (ICD-10) Hx of cholecystectomy ?Z90.49 - Acquired absence of other specified parts of digestive tract (ICD- 10) Meds Home Medications and Allergies Home Medications ?Medication ?Instructions ?Recorded ?Confirmed ?Type albuterol sulfate 90 mcg/actuation 2 inh inhalation Q8H PRN shortness 10/28/23 02/17/24 History aerosol inhaler of breath or wheezing aripiprazole 5 mg tablet (Abilify) 5 mg PO DAILY 10/28/23 02/17/24 History cholecalciferol (vitamin D3) 50 10,000 unit PO DAILY 10/28/23 02/17/24 History mcg (2,000 unit) tablet (Vitamin D3) clopidogrel 75 mg tablet (Plavix) 75 mg PO DAILY 10/28/23 02/17/24 History fenofibrate micronized 134 mg 134 mg PO DAILY 10/28/23 02/17/24 History capsule fluoxetine 40 mg capsule (Prozac) 40 mg PO DAILY 10/28/23 02/17/24 History fluticasone furoate 100 1 inh inhalation DAILY 10/28/23 02/17/24 History mcg-vilanterol 25 mcg/dose inhalation powder (Breo Ellipta) ipratropium 18 mcg-albuterol 103 1 spray inhalation PRN shortness 10/28/23 History mcg/actuation aerosol inhaler of breath multivitamin-ferrous 1 tab PO DAILY 10/28/23 02/17/24 History fumarate-folic acid 18 mg-400 mcg tablet (Centrum Women) omeprazole 20 mg capsule,delayed 20 mg PO DAILY 10/28/23 02/17/24 History release oxycodone-acetaminophen 10 mg-325 1 tab PO Q4H 10/28/23 02/17/24 History mg tablet (Percocet) raloxifene 60 mg tablet (Evista) 60 mg PO DAILY 10/28/23 02/17/24 History sennosides 8.6 mg tablet (Senokot) 8.6 mg PO DAILY 10/28/23 02/17/24 History simvastatin 40 mg tablet 40 mg PO DAILY 10/28/23 02/17/24 History tizanidine 2 mg capsule 2 mg PO BID PRN muscle spasticity 10/28/23 02/17/24 History naloxone 4 mg/actuation nasal 4 mg intranasal Q3M PRN opioid 11/04/23 02/17/24 Rx spray (Narcan) overdose #2 ea morphine 15 mg tablet,extended 15 mg PO BEDTIME 02/17/24 02/17/24 History release Allergies Allergy/AdvReac Type Severity Reaction Status Date / Time No Known Drug Allergies Allergy Verified 02/17/24 09:43 Exam Narrative Exam Narrative: Psych-alert and oriented x 3. Attentive and appropriate, constitutionally normal, displays normal mood and affect per situation. There are no obvious deficits in memory, reasoning, or intellect.? Skin-no obvious rashes, bruising, erythema noted to the patient's area of pain.? Extremities- extremities are warm with minimal edema and palpable pulses. Lumbar-tenderness to palpation noted in the lumbar spine and paraspinal musculature. Pain is not elicited with flexion, extension, and lateral rotation of the lumbar spine. Range of motion is not diminished with these motions. Facet loading maneuvers are negative.? Strength-noted to be unremarkable with the exception of decreased strength rated at 4 out of 5 in bilateral quadriceps femoris, anterior tibialis. Sensory-no notable sensory deficits in the bilateral lower extremities to touch or pinprick in all dermatomal distributions with the exception to decreased sensation to the bilateral L4, 5 dermatomal distribution Coordination remains intact.? Gait remains non-antalgic. Assessment and Plan Assessment and Plan (1) Lumbar stenosis with neurogenic claudication: Plan 73yof who presents for assessment. worsening low back and bilateral lower extremity pain, inability to walk. rfa only one week ago, so too soon to obtain benefits from this. do not have a good explanation for this acute exacerbation. will have her undergo lumbar xr to ensure no fracture. if no fracture present, will have her undergo bilateral l4-5 tfesi under fluoroscopic guidance. she is in agreement. meds reviewed. explained that palliative care would need to adjust pain medications, as they are managing. prescribed mdp. follow up after procedure.
== END 2024-02-24 12:42 | disposition home or self-care (01) ==
LOC: PM 12:41
PROVIDERS: PCP Family Medicine; Visit Provider Anesthesiology
DX: M47.816 Spondylosis without myelopathy or radiculopathy, lumbar region (principal); M48.062 Spinal stenosis, lumbar region with neurogenic claudication
CPT/HCPCS: 72100; G0463

== ENCOUNTER 2024-02-24 13:46 | Outpatient (OUT) | payer MEDICARE, OTHER, SELFPAY ==
--- NOTE | 2024-02-24 13:56 | XR_ITS ---
[facility] [place] [id number] Patient Name: ATTILA PACHECO MRN: [id number] date: 1950 Sex: F Assigned Patient Location: [facility] Current Patient Location: [facility] Accession/Order Number: [id number] Exam Date: 02/24/2024 14:00 Report Date: 02/24/2024 14:55 At the request of: MAURICIO SINCLAIR Procedure: XR lumbar spine 2-3V EXAMINATION: XR lumbar spine 2-3V HISTORY: Lumbar Stenosis COMPARISON: XR L-spine 09/28/2021 FINDINGS: BONES: Mild left convex curvature of lumbar spine. Minimal grade 1 retrolisthesis of L1 on 2 and minimal grade 1 anterior listhesis of L4 on 5. Moderate degenerative facet arthropathy L4-5, L5-S1. No fracture. DISC SPACES: Multilevel mild-moderate narrowing. PARASPINOUS: Negative. No paraspinous abnormality is seen. OTHER: Negative. XR/XR lumbar spine 2-3V IMPRESSION: 1. No appreciable acute abnormality, although levocurvature of the spine is new. 2. Multilevel moderate degenerative changes which have progressed since prior study. Electronically authenticated by: STANLEY ALONZO Date: 02/24/2024 14:55
== END 2024-02-24 13:47 | disposition home or self-care (01) ==
LOC: RAD 13:48
PROVIDERS: PCP Family Medicine; Visit Provider Anesthesiology
DX: M48.061 Spinal stenosis, lumbar region without neurogenic claudication (principal); M47.816 Spondylosis without myelopathy or radiculopathy, lumbar region
CPT/HCPCS: 72100

== ENCOUNTER 2024-02-25 09:40 | Day surgery (SDC) | payer MEDICARE, OTHER, SELFPAY ==
--- NOTE | 2024-02-25 | PCN_ITS ---
PROCEDURE DATE: 02/25/2024 PROCEDURE: Bilateral transforaminal epidural steroid injection at the L5-S1 foramen. PREOPERATIVE DIAGNOSIS: Pain secondary to radiculopathy, spinal stenosis. POSTOPERATIVE DIAGNOSIS: Pain secondary to radiculopathy, spinal stenosis. SOLUTION USED FOR INJECTION: Marcaine 0.125%, Depo-Medrol 40 mg and 2 mL and two syringes were used for the procedure. Omnipaque dye was used to confirm needle tip placement. ANESTHESIA: None. IV: There was no IV started. PROCEDURE: After informed consent was obtained from the patient, placed in the prone position. Skin overlying the area was prepped and draped in sterile fashion using Betadine. A 25 gauge spinal needle was used to raise a skin wheal and anesthetize deeper tissues, just proximal to the foraminal target area. A 22 gauge spinal needle was inserted over the area, directed towards the left L5- S1 foramen, under fluoroscopic guidance. Needle tip placement confirmed with injection of Omnipaque dye. There was appropriate filling along the ventral portion of the epidural space. 2 mL of steroid fluid was injected. This procedure was completed in a similar fashion on the contralateral side. Post procedure, needle was removed. Transferred to recovery in stable condition, to be D\C?d after meeting criteria. She reports a marked reduction in pain symptoms in the recovery area. KING
[2024-02-25 10:31] VITALS: BP 144/83; PULSE 80; TEMP 36.2; O2SAT 98
[2024-02-25 11:12] VITALS: BP 155/79; PULSE 80; O2SAT 100
[2024-02-25 11:15] VITALS: BP 138/7; PULSE 78; O2SAT 100
[2024-02-25] MEDS: IOHEXOL 240 MG/ML - 10 ML VIAL 24 MG INJ (11:22)
[2024-02-25] MEDS: LIDOCAINE HCL 2% 400 MG/20 ML MDV 5 ML INJ (11:22)
[2024-02-25] MEDS: METHYLPREDNISOLONE ACETATE 40 MG/ML VIAL 80 MG INJ (11:22)
[2024-02-25] MEDS: BUPIVACAINE HCL 0.25% PF 25 MG/10 ML VIAL 2 ML INJ (11:22)
== END 2024-02-25 11:30 | disposition home or self-care (01) ==
LOC: SURGOUT 09:41
PROVIDERS: PCP Family Medicine; Visit Provider Anesthesiology Pain Medicine
DX: M54.17 Radiculopathy, lumbosacral region (principal); M48.07 Spinal stenosis, lumbosacral region
CPT/HCPCS: 64483; J0665; J1010; Q9966

== ENCOUNTER 2024-03-03 11:45 | Outpatient (OUT) | payer MEDICARE, OTHER, SELFPAY ==
--- NOTE | 2024-03-03 11:47 | MR_ITS ---
The [address] [address] Patient Name: ATTILA PACHECO MRN: [id number] date: 1950 Sex: F Assigned Patient Location: MRI Current Patient Location: MRI Accession/Order Number: [id number] Exam Date: 03/03/2024 12:00 Report Date: 03/03/2024 13:56 At the request of: MAURICIO SINCLAIR Procedure: MR lumbar spine wo con HISTORY: Low back pain. Lumbar stenosis. MR lumbar spine wo con: 03/03/2024 12:00 PM EST COMPARISON: MRI lumbar spine 11/01/2023 and radiographs lumbar spine 02/24/2024. TECHNIQUE: Sagittal T1, T2, STIR, axial T1 and axial T2-weighted images of the lumbar spine were obtained. FINDINGS: Several images are degraded by motion artifact. There is a rotatory levoconvex scoliosis of the lumbar spine again seen. There is a similar appearance of moderate to severe discogenic disease at the L1-L2 level with retrolisthesis of L1 on L2 of 2 mm again seen. There is mild discogenic disease again seen at the other levels of the lumbar spine. There is also mild multilevel discogenic disease of the visualized lower thoracic spine. The bone marrow signal intensity appears age appropriate. The conus medullaris is not studied in detail, but it appears grossly unremarkable. L1-L2 level: There is a small posterior disc-osteophyte complex, but this does not cause significant spinal canal stenosis or foraminal narrowing. There is moderate facet joint arthropathy again seen on the right. L2-L3 level: There is a similar appearance of a small posterior disc bulge with a superimposed small left paracentral disc protrusion. This again appears to cause mild spinal canal stenosis and mild narrowing of the left lateral recess when combined with moderate facet joint arthropathy. There is no foraminal narrowing. L3-L4 level: No significant disc protrusion, spinal canal stenosis, or foraminal narrowing is seen. There is mild facet joint arthropathy again seen. L4-L5 level: There are postsurgical changes again seen from prior right hemilaminectomy and medial facetectomy. A small right foraminal disc-osteophyte complex again combines with severe facet joint arthropathy/hypertrophy to cause mild right foraminal narrowing. There is no left foraminal narrowing or central spinal canal stenosis. There is severe facet joint arthropathy again seen on the left. L5-S1 level: No significant disc protrusion, spinal canal stenosis, or foraminal narrowing is seen. There is severe facet joint arthropathy again seen. MR/MR lumbar spine wo con IMPRESSION: 1. There is a similar appearance of the lumbar spine were compared to the prior MRI of 11/01/2023 with a rotatory levoconvex scoliosis of the lumbar spine, multilevel discogenic disease and severe facet joint arthropathy at the L4-L5 and L5-S1 level. 2. A small posterior disc bulge with a superimposed small left paracentral disc protrusion at the L2-L3 level again combine with moderate facet joint arthropathy to cause mild spinal canal stenosis and mild narrowing of the left lateral recess. No other spinal canal stenosis is seen. 3. Stable mild right foraminal narrowing at the L4-L5 level. Electronically authenticated by: TOMÁS MATUTE Date: 03/03/2024 13:56
== END 2024-03-03 11:46 | disposition home or self-care (01) ==
LOC: MRI 11:45
PROVIDERS: PCP Family Medicine; Visit Provider Anesthesiology
DX: M48.062 Spinal stenosis, lumbar region with neurogenic claudication (principal); M51.369 Other intervertebral disc degeneration, lumbar region without mention of lumbar back pain or lower extremity pain
CPT/HCPCS: 72148

== ENCOUNTER 2024-03-12 09:07 | Outpatient (OUT) | payer MEDICARE, OTHER, SELFPAY ==
--- NOTE | 2024-03-12 09:53 | P.CN_ITS ---
Consult Note: HPI Data of Consult Patient: known to practice within the last 3 years Consult date: 02/24/24 Requesting Physician: Rosa Maria Rico NP Primary Care Provider: PARRIS ROMAN Consult Narrative Reason for consult: low back, bilateral lower extremity pain Narrative: 73yof who presents for assessment. underwent lumbar rfa 02/17/24, but has had increasing low back pain. denies trauma. states difficult to walk. imaging significant for multilevel stenosis, as well as spondylosis. pain medication managed by palliative care. recent bilateral TFESI at L4/5 providing mild relief per pt. cc:: CC: Rosa Maria Rico NP Review of Systems ROS Musculoskeletal Reports: back pain PFSH PFS Medical History (Updated 03/12/24 @ 09:55 by Rosa Maria Rico NP) Acid reflux ?K21.9 - Gastro-esophageal reflux disease without esophagitis (ICD-10) Cervical vertebral fusion ?M43.22 - Fusion of spine, cervical region (ICD-10) COPD (chronic obstructive pulmonary disease) ?J44.9 - Chronic obstructive pulmonary disease, unspecified (ICD-10) Stroke ?I63.9 - Cerebral infarction, unspecified (ICD-10) Vertigo ?R42 - Dizziness and giddiness (ICD-10) Surgical History History of lumbar surgery ?Z98.890 - Other specified postprocedural states (ICD-10) History of bladder suspension procedure ?Z98.890 - Other specified postprocedural states (ICD-10) ?Z87.448 - Personal history of other diseases of urinary system (ICD-10) H/O dilation of urethra ?Z98.890 - Other specified postprocedural states (ICD-10) History of colonoscopy ?Z98.890 - Other specified postprocedural states (ICD-10) History of laparoscopy ?Z98.890 - Other specified postprocedural states (ICD-10) History of cardiac cath ?Z98.890 - Other specified postprocedural states (ICD-10) History of hand surgery ?Z98.890 - Other specified postprocedural states (ICD-10) H/O oophorectomy History of hysterectomy ?Z90.710 - Acquired absence of both cervix and uterus (ICD-10) Hx of cholecystectomy ?Z90.49 - Acquired absence of other specified parts of digestive tract (ICD- 10) Meds Home Medications and Allergies Home Medications ?Medication ?Instructions ?Recorded ?Confirmed ?Type albuterol sulfate 90 mcg/actuation 2 inh inhalation Q8H PRN shortness 10/28/23 02/25/24 History aerosol inhaler of breath or wheezing aripiprazole 5 mg tablet (Abilify) 5 mg PO DAILY 10/28/23 02/25/24 History cholecalciferol (vitamin D3) 50 10,000 unit PO DAILY 10/28/23 02/25/24 History mcg (2,000 unit) tablet (Vitamin D3) clopidogrel 75 mg tablet (Plavix) 75 mg PO DAILY 10/28/23 02/25/24 History fenofibrate micronized 134 mg 134 mg PO DAILY 10/28/23 02/25/24 History capsule fluoxetine 40 mg capsule (Prozac) 40 mg PO DAILY 10/28/23 02/25/24 History fluticasone furoate 100 1 inh inhalation DAILY 10/28/23 02/25/24 History mcg-vilanterol 25 mcg/dose inhalation powder (Breo Ellipta) ipratropium 18 mcg-albuterol 103 1 spray inhalation PRN shortness 10/28/23 History mcg/actuation aerosol inhaler of breath multivitamin-ferrous 1 tab PO DAILY 10/28/23 02/25/24 History fumarate-folic acid 18 mg-400 mcg tablet (Centrum Women) omeprazole 20 mg capsule,delayed 20 mg PO DAILY 10/28/23 02/25/24 History release oxycodone-acetaminophen 10 mg-325 1 tab PO Q4H 10/28/23 02/25/24 History mg tablet (Percocet) raloxifene 60 mg tablet (Evista) 60 mg PO DAILY 10/28/23 02/25/24 History sennosides 8.6 mg tablet (Senokot) 8.6 mg PO DAILY 10/28/23 02/25/24 History simvastatin 40 mg tablet 40 mg PO DAILY 10/28/23 02/25/24 History tizanidine 2 mg capsule 2 mg PO BID PRN muscle spasticity 10/28/23 02/25/24 History naloxone 4 mg/actuation nasal 4 mg intranasal Q3M PRN opioid 11/04/23 02/25/24 Rx spray (Narcan) overdose #2 ea morphine 15 mg tablet,extended 15 mg PO BEDTIME 02/17/24 02/25/24 History release Allergies Allergy/AdvReac Type Severity Reaction Status Date / Time No Known Drug Allergies Allergy Verified 02/25/24 10:36 Exam Constitutional Documenting provider has reviewed patient's vital signs: yes Common normals: no apparent distress, oriented x3, healthy appearing, alert and well nourished General appearance: cooperative HENMT Common normals: normocephalic, hearing grossly normal bilaterally and moist oral mucous membranes Head and scalp: normocephalic Eye Common normals: PERRL Pupil: PERRL Neck & C-Spine Common normals: full ROM General: normal visual inspection Chest Common normals: inspection of chest normal Respiratory Common normals: normal respiratory effort, no retractions and no use of accessory muscles Back & Pelvis Lumbar spine/lower back: ROM limited, pain with ROM, lumbar spinal tenderness, paraspinal muscle tenderness and paraspinal muscle spasm; straight leg raise positive Sacroiliac joints: SI joint(s) abnormal Other: significant myofascial pain and spasming noted throughout lumbar spine strength 5/5 in BLE sensation intact BLE Neuro Common normals: oriented x3, CN's II-XII intact bilaterally, moves all extremities, no focal motor deficits, no sensory deficits noted and deep tendon reflexes 2+ bilaterally Sensorium/orientation: alert Motor exam: strength 5/5 throughout and no movement abnormalities noted Psych Common normals: mental status grossly normal, thought process normal, cooperative, affect normal, speech normal and activity/motor behavior normal Speech: normal speech Thought process: normal thought process Assessment and Plan Assessment and Plan (1) Lumbar postlaminectomy syndrome: (2) Lumbar stenosis with neurogenic claudication: (3) Lumbar spondylosis: (4) Myalgia: Plan MRI reviewed with pt, continue on prednisone 10mg daily as previously prescribed encouraged TENS and heat f/u [address] Ferrera
== END 2024-03-12 09:08 | disposition home or self-care (01) ==
LOC: PM 09:08
PROVIDERS: PCP Family Medicine; Visit Provider Nurse Practitioner
DX: M96.1 Postlaminectomy syndrome, not elsewhere classified (principal); M48.062 Spinal stenosis, lumbar region with neurogenic claudication; M47.816 Spondylosis without myelopathy or radiculopathy, lumbar region; M79.18 Myalgia, other site
CPT/HCPCS: G0463

== ENCOUNTER 2024-03-30 10:09 | Outpatient (OUT) | payer MEDICARE, OTHER, SELFPAY ==
--- NOTE | 2024-03-30 10:55 | P.CN_ITS ---
Consult Note: HPI Data of Consult Patient: known to practice within the last 3 years Consult date: 03/30/24 Requesting Physician: Ru Ferrera MD Primary Care Provider: PARRIS ROMAN Consult Narrative Reason for consult: low back, right leg pain Narrative: 73yof who presents for assessment. continues to endorse significant pain in low back and right leg. states that the tfesi did not provide benefit. continues on an extremely high opioid regimen, as well as xanax. on home o2 for end stage copd. cc:: CC: Ru Ferrera MD Review of Systems ROS Status of ROS 10 or more systems reviewed and unremark able except as noted in history and below [facility] Medical History (Updated 03/12/24 @ 09:55 by Rosa Maria Rico NP) Acid reflux ?K21.9 - Gastro-esophageal reflux disease without esophagitis (ICD-10) Cervical vertebral fusion ?M43.22 - Fusion of spine, cervical region (ICD-10) COPD (chronic obstructive pulmonary disease) ?J44.9 - Chronic obstructive pulmonary disease, unspecified (ICD-10) Stroke ?I63.9 - Cerebral infarction, unspecified (ICD-10) Vertigo ?R42 - Dizziness and giddiness (ICD-10) Surgical History History of lumbar surgery ?Z98.890 - Other specified postprocedural states (ICD-10) History of bladder suspension procedure ?Z98.890 - Other specified postprocedural states (ICD-10) ?Z87.448 - Personal history of other diseases of urinary system (ICD-10) H/O dilation of urethra ?Z98.890 - Other specified postprocedural states (ICD-10) History of colonoscopy ?Z98.890 - Other specified postprocedural states (ICD-10) History of laparoscopy ?Z98.890 - Other specified postprocedural states (ICD-10) History of cardiac cath ?Z98.890 - Other specified postprocedural states (ICD-10) History of hand surgery ?Z98.890 - Other specified postprocedural states (ICD-10) H/O oophorectomy History of hysterectomy ?Z90.710 - Acquired absence of both cervix and uterus (ICD-10) Hx of cholecystectomy ?Z90.49 - Acquired absence of other specified parts of digestive tract (ICD- 10) Meds Home Medications and Allergies Home Medications ?Medication ?Instructions ?Recorded ?Confirmed ?Type albuterol sulfate 90 mcg/actuation 2 inh inhalation Q8H PRN shortness 10/28/23 02/25/24 History aerosol inhaler of breath or wheezing aripiprazole 5 mg tablet (Abilify) 5 mg PO DAILY 10/28/23 02/25/24 History cholecalciferol (vitamin D3) 50 10,000 unit PO DAILY 10/28/23 02/25/24 History mcg (2,000 unit) tablet (Vitamin D3) clopidogrel 75 mg tablet (Plavix) 75 mg PO DAILY 10/28/23 02/25/24 History fenofibrate micronized 134 mg 134 mg PO DAILY 10/28/23 02/25/24 History capsule fluoxetine 40 mg capsule (Prozac) 40 mg PO DAILY 10/28/23 02/25/24 History fluticasone furoate 100 1 inh inhalation DAILY 10/28/23 02/25/24 History mcg-vilanterol 25 mcg/dose inhalation powder (Breo Ellipta) ipratropium 18 mcg-albuterol 103 1 spray inhalation PRN shortness 10/28/23 History mcg/actuation aerosol inhaler of breath multivitamin-ferrous 1 tab PO DAILY 10/28/23 02/25/24 History fumarate-folic acid 18 mg-400 mcg tablet (Centrum Women) omeprazole 20 mg capsule,delayed 20 mg PO DAILY 10/28/23 02/25/24 History release oxycodone-acetaminophen 10 mg-325 1 tab PO Q4H 10/28/23 02/25/24 History mg tablet (Percocet) raloxifene 60 mg tablet (Evista) 60 mg PO DAILY 10/28/23 02/25/24 History sennosides 8.6 mg tablet (Senokot) 8.6 mg PO DAILY 10/28/23 02/25/24 History simvastatin 40 mg tablet 40 mg PO DAILY 10/28/23 02/25/24 History tizanidine 2 mg capsule 2 mg PO BID PRN muscle spasticity 10/28/23 02/25/24 History naloxone 4 mg/actuation nasal 4 mg intranasal Q3M PRN opioid 11/04/23 02/25/24 Rx spray (Narcan) overdose #2 ea morphine 15 mg tablet,extended 15 mg PO BEDTIME 02/17/24 02/25/24 History release Allergies Allergy/AdvReac Type Severity Reaction Status Date / Time No Known Drug Allergies Allergy Verified 02/25/24 10:36 Exam Narrative Exam Narrative: Psych-alert and oriented x 3. Attentive and appropriate, constitutionally normal, displays normal mood and affect per situation.? There are no obvious deficits in memory, reasoning, or intellect.? Skin-no obvious rashes, bruising, erythema noted to the patient's area of pain. Extremities- extremities are warm with minimal edema and palpable pulses. Lumbar-no significant tenderness to palpation noted in the lumbar spine and paraspinal musculature.? Pain is elicited with extension, and lateral rotation of the lumbar spine. Range of motion is slightly diminished with these motions due to pain. Coordination remains intact.? Gait remains non-antalgic. Assessment and Plan Assessment and Plan (1) Lumbar postlaminectomy syndrome: (2) Lumbar stenosis with neurogenic claudication: Plan 73yof who presents for assessment. continues to have low back pain and spasms into right leg. recent imaging did not show any new acute pathology. discussed that given her persistence of significant pain and failure to respond to conservative measures, she needed a higher level of care than we could provide. strongly suspect that medication taper would greatly improve her condition, given high daily doses of oral dilaudid, morphine er, xanax, though medication managed by palliative care. will refer to [facility]. follow up as needed.
== END 2024-03-30 10:10 | disposition home or self-care (01) ==
LOC: PM 10:09
PROVIDERS: PCP Family Medicine; Visit Provider Anesthesiology
DX: M96.1 Postlaminectomy syndrome, not elsewhere classified (principal); M48.062 Spinal stenosis, lumbar region with neurogenic claudication
CPT/HCPCS: G0463